=== PATIENT | female | born 1970 | race African-American/Black ===

== ENCOUNTER 2019-12-10 21:50 | Emergency (ER) | payer OTHER ==
[~2019-12-10] VITALS: Ht 154.9 cm; Wt 81.6 kg
[2019-12-10] MEDS ORDERED: ONDANSETRON HCL INJ 2MG/ML 2ML 2 MG/ML VIAL IV STA (21:52)
[2019-12-10] MEDS ORDERED: ASPIRIN 81 MG CHEW TAB PO STA (21:52)
[2019-12-10] MEDS ORDERED: MORPHINE SULFATE INJ 4 MG/ML INJ 1ML IV STA (21:52)
--- NOTE | 2019-12-10 22:02 | Emergency Department Note ---
History of Present Illnes History of Present Illness Chief Complaint: Chest Pain History of Present Illness This is a 49 year old female with self reported h/o of CABG in May 2019 at [facility] and recent h/o of NON-STEMI presents to the ED for evaluation of CP with SOB. . Historian: Patient Arrival Mode: Car Summer Sessions Director Required: No Onset (how long ago): day(s) (1) Radiation: Reports non-radiation Severity: moderate Onset quality: gradual Duration (how long): day(s) (1) Timing of current episode: constant Progression: worsening Chronicity: new Relieving factors: none Exacerbating factors: none Associated symptoms: Reports chest pain, Reports shortness of breath Treatments prior to arrival: none Past Medical/Family History Physician Review I have reviewed the patient's past medical and family history. Any updates have been documented here. Past Medical History Recent Fever: No Clinical Suspicion of Infectio: No New/Unexplained Change in Ment: No Past Medical History: CAD Past Surgical History: CABG, PCI Social History Smoking Cessation: Never Smoker Alcohol Use: None Any Illegal Drug Use: No Review of Systems Review of Systems Constitutional: Reports no symptoms EENTM: Reports no symptoms Cardiovascular: Reports chest pain Respiratory: Reports no symptoms Gastrointestinal: Reports no symptoms Genitourinary: Reports no symptoms Musculoskeletal: Reports no symptoms Integumentary: Reports no symptoms Neurological: Reports no symptoms Psychological: Reports no symptoms Endocrine: Reports no symptoms Hematological/Lymphatic: Reports no symptoms Physical Exam Related Data Allergies: Coded Allergies: gabapentin (Verified Allergy, Intermediate, 12/10/19) tramadol (Verified Allergy, Intermediate, 12/10/19) ibuprofen (Verified Allergy, Unknown, 12/10/19) Vital signs reviewed: Yes Physical Exam CONSTITUTIONAL Constitutional: Present well-developed, Present well-nourished HENT HENT: Present normocephalic, Present atraumatic, Present oropharynx clear/moist, Present nose normal HENT L/R: Present left ext ear normal, Present right ext ear normal EYES Eyes: Reports PERRL, Reports conjunctivae normal NECK Neck: Present ROM normal PULMONARY Pulmonary: Present effort normal, Present breath sounds normal CARDIOVASCULAR Cardiovascular: Present regular rhythm, Present heart sounds normal, Present capillary refill normal, Present normal rate GASTROINTESTINAL Abdominal: Present soft, Present nontender, Present bowel sounds normal GENITOURINARY Genitourinary: Present exam deferred SKIN Skin: Present warm, Present dry MUSCULOSKELETAL Musculoskeletal: Present ROM normal NEUROLOGICAL Neurological: Present alert, Present oriented x 3, Present no gross motor or sensory deficits PSYCHOLOGICAL Psychological: Present mood/affect normal, Present judgement normal Results Laboratory Laboratory Laboratory Tests Test 12/11/19 01:10 12/10/19 22:07 Urine Opiates Screen Positive (NEGATIVE) Urine Methadone Screen Negative (NEGATIVE) Urine Barbiturates Screen Negative (NEGATIVE) Urine Phencyclidine Screen Negative (NEGATIVE) Urine Amphetamines Screen Negative (NEGATIVE) Urine Methamphetamines Screen Negative (NEGATIVE) Urine Benzodiazepines Screen Positive (NEGATIVE) Urine Cocaine Screen Negative (NEGATIVE) Urine Cannabinoids Screen Positive (NEGATIVE) White Blood Count 8.56 x10e3/uL (4.8-10.8) Red Blood Count 3.63 x10e6/uL (3.6-5.1) Hemoglobin 12.5 g/dL (12.0-16.0) Hematocrit 35.7 % (34.2-44.1) Mean Corpuscular Volume 98.3 fL (81-99) Mean Corpuscular Hemoglobin 34.4 pg (28-32) Mean Corpuscular Hemoglobin Concent 35.0 g/dL (31-35) Red Cell Distribution Width 15.7 % (11.7-14.4) Platelet Count 252 x10e3/uL (140-360) Neutrophils (%) (Auto) 46.1 % (38.7-80.0) Lymphocytes (%) (Auto) 44.9 % (18.0-39.1) Monocytes (%) (Auto) 6.3 % (4.4-11.3) Eosinophils (%) (Auto) 2.1 % (0.0-6.0) Basophils (%) (Auto) 0.4 % (0.0-1.0) Neutrophils # (Auto) 4.0 (2.1-6.9) Lymphocytes # (Auto) 3.8 (1.0-3.2) Monocytes # (Auto) 0.5 (0.2-0.8) Eosinophils # (Auto) 0.2 (0.0-0.4) Basophils # (Auto) 0.0 (0.0-0.1) Absolute Immature Granulocyte (auto 0.02 x10e3/uL (0-0.1) Sodium Level 144 mmol/L (136-145) Potassium Level 3.5 mmol/L (3.5-5.1) Chloride Level 109 mmol/L (98-107) Carbon Dioxide Level 20 mmol/L (22-29) Anion Gap 18.5 mmol/L (8-16) Blood Urea Nitrogen 7 mg/dL (7-26) Creatinine 0.82 mg/dL (0.57-1.11) Estimat Glomerular Filtration Rate > 60 ML/MIN (60-) BUN/Creatinine Ratio 9 (6-25) Glucose Level 134 mg/dL (74-118) Calcium Level 8.6 mg/dL (8.4-10.2) Total Bilirubin 0.3 mg/dL (0.2-1.2) Aspartate Amino Transf (AST/SGOT) 22 IU/L (5-34) Alanine Aminotransferase (ALT/SGPT) 7 IU/L (0-55) Alkaline Phosphatase 55 IU/L (40-150) Creatine Kinase 71 IU/L (29-168) Creatine Kinase MB 0.40 ng/mL (0-5.0) Troponin I 0.007 ng/mL (0-0.300) B-Type Natriuretic Peptide < 10.0 pg/mL (0-100) Total Protein 8.5 g/dL (6.5-8.1) Albumin 3.6 g/dL (3.5-5.0) Globulin 4.9 g/dL (2.3-3.5) Albumin/Globulin Ratio 0.7 (0.8-2.0) Lab results reviewed: Yes Imaging Imaging results reviewed: Yes Impressions [place] [id number] Patient Name: EVA LANDON MR #: [id number] : 1970 Age/Sex: 49/F Req #: [id number] Adm Physician: Ordered by: KHRIS RODRIGUEZ DO Report #: [id number] Location: ER Room/Bed: Procedure: [id number] DX/CHEST SINGLE (PORTABLE) Exam Date: 12/10/19 Exam Time: 2355 REPORT STATUS: Signed EXAMINATION: CHEST SINGLE (PORTABLE) INDICATION: Chest pain COMPARISON: None FINDINGS: TUBES and LINES: None. LUNGS: Normal lung volumes. Lungs are clear. Prominent central pulmonary vasculature. PLEURA: No pleural effusion or pneumothorax. HEART AND MEDIASTINUM: Cardiac size is mildly enlarged. BONES AND SOFT TISSUES: No acute osseous lesion. Soft tissues are unremarkable. Sternotomy wires. Degenerative changes UPPER ABDOMEN: No free air under the diaphragm. . IMPRESSION: Mild cardiomegaly and pulmonary vascular congestion. Signed by: Amos Pack DO on 12/11/2019 1:14 AM Dictated By: AMOS PACK DO 3 Transcribed By: LUANA on 12/11/19113 COPY TO: KHRIS RODRIGUEZ DO~ Procedures 12 Lead ECG Interpretation ECG Interpretation #1: ECG: ECG 1 Summer Sessions Director: Interpreted by ED physician Date: Dec 10, 2019 Time: 22:01 Prior ECG tracings: reviewed Rhythm: sinus rhythm Rate: normal BPM: 90 QRS axis: normal ST segments normal: Yes T waves normal: No T waves flattening: V2, V3, V4, V5, V6 Clinical Impression: non-specific ECG ECG Interpretation #2: ECG: ECG 2 Date: Dec 10, 2019 Time: 22:40 Prior ECG tracings: reviewed Rhythm: sinus rhythm Rate: normal BPM: 83 QRS axis: normal ST segments normal: Yes T waves normal: Yes Clinical Impression: normal ECG Assessment & Plan Medical Decision Making MDM 49 yof presents with CP . ACS, PE, costocondritis, Chest wall pain, and pneumothorax considered. labs, imaging and EKG reviewed . Plan to discharge patient to home with f/u with [employer] Assessment & Plan Final Impression: (1) Chest pain Depart Disposition: HOME, SELF-CARE Last Vital Signs Date Time Temp Pulse Resp B/P (MAP) Pulse Ox O2 Delivery O2 Flow Rate FiO2 12/11/19 02:42 78 20 100 12/11/19 02:02 132/90 12/10/19 22:07 98.9 Medications in the ED Aspirin 324 mg ONCE STAT PO ; Start 12/10/19 at 21:52; Stop 12/10/19 at 21:53; Status UNV Morphine Sulfate 4 mg ONCE STAT IV ; Start 12/10/19 at 21:52; Stop 12/10/19 at 21:53; Status UNV Ondansetron HCl 4 mg ONCE STAT IV ; Start 12/10/19 at 21:52; Stop 12/10/19 at 21:53; Status UNV KHRIS RODRIGUEZ DO Dec 10, 2019 22:02
[2019-12-10 22:19] LABS: BASOPHILS % 0.4 % (0.0-1.0); EOSINOPHILS # (AUTO) 0.2 (0.0-0.4); EOSINOPHILS % 2.1 % (0.0-6.0); HEMATOCRIT 35.7 % (34.2-44.1); HEMOGLOBIN 12.5 g/dL (12.0-16.0); LYMPHOCYTES # (AUTO) 3.8 (1.0-3.2); LYMPHOCYTES % 44.9 % (18.0-39.1); MEAN CORPUSCULAR HEMOGLOBIN 34.4 pg (28-32); MEAN CORPUSCULAR VOLUME 98.3 fL (81-99); MONOCYTES # (AUTO) 0.5 (0.2-0.8); MONOCYTES % 6.3 % (4.4-11.3); NEUTROPHILS % 46.1 % (38.7-80.0); PLATELET COUNT 252 x10e3/uL (140-360); RED BLOOD COUNT 3.63 x10e6/uL (3.6-5.1); RED CELL DISTRIBUTION WIDTH 15.7 % (11.7-14.4)
[2019-12-10 22:36] LABS: ALANINE AMINOTRANSFERASE 7 IU/L (0-55); ALBUMIN 3.6 g/dL (3.5-5.0); ALBUMIN/GLOBULIN RATIO 0.7 (0.8-2.0); ALKALINE PHOSPHATASE 55 IU/L (40-150); ANION GAP 18.5 mmol/L (8-16); BLOOD UREA NITROGEN 7 mg/dL (7-26); BUN/CREATININE RATIO 9 (6-25); CALCIUM 8.6 mg/dL (8.4-10.2); CARBON DIOXIDE 20 mmol/L (22-29); CHLORIDE 109 mmol/L (98-107); CREATINE KINASE 71 IU/L (29-168); CREATININE, SERUM 0.82 mg/dL (0.57-1.11); EST GLOMERULAR FILTRATION RATE > 60 ML/MIN (60-); GLUCOSE 134 mg/dL (74-118); POTASSIUM 3.5 mmol/L (3.5-5.1); SODIUM 144 mmol/L (136-145)
--- NOTE | 2019-12-10 22:57 | NUR ---
PT REPORTS DIZZINESS IN LOBBY, ASSISTED TO WC BY RN X2 AND CLIENT SERVICES REPRESENTATIVE AND TAKEN TO ED RM #2, PLACED ON CREDIT REPORTING CLERK; ER MD TO BS FOR EVAL; PT WITH NAD NOTED; REQUESTS PAIN MEDICATION
--- NOTE | 2019-12-11 01:11 | NUR ---
PT W/O ANY SIGNS OF ACUTE DISTRESS, RESP E/U, NON-DIAPHORETIC, NO NEURO DEFICITS NOTED, WILL CONTINUE TO MONITOR AND UPDATE ON POC.
--- NOTE | 2019-12-11 01:17 | Diagnostic Imaging Report ---
EXAMINATION: CHEST SINGLE (PORTABLE) INDICATION: Chest pain COMPARISON: None FINDINGS: TUBES and LINES: None. LUNGS: Normal lung volumes. Lungs are clear. Prominent central pulmonary vasculature. PLEURA: No pleural effusion or pneumothorax. HEART AND MEDIASTINUM: Cardiac size is mildly enlarged. BONES AND SOFT TISSUES: No acute osseous lesion. Soft tissues are unremarkable. Sternotomy wires. Degenerative changes UPPER ABDOMEN: No free air under the diaphragm. . IMPRESSION: Mild cardiomegaly and pulmonary vascular congestion. Signed by: Amos Pack DO on 12/11/2019 1:14 AM
[2019-12-11 01:21] LABS: PHENCYCLIDINE SCREEN,URINE NEGATIVE (NEGATIVE)
[2019-12-11 01:22] LABS: AMPHETAMINES SCREEN,URINE NEGATIVE (NEGATIVE); BENZODIAZEPINES SCREEN,URINE POSITIVE (NEGATIVE)
[2019-12-11 02:42] VITALS: BP 135/94
== END 2019-12-11 02:30 | disposition home or self-care (01) ==
LOC: ER 21:50
DX: R07.9 Chest pain, unspecified (principal); R06.02 Shortness of breath; I51.7 Cardiomegaly; I25.10 Atherosclerotic heart disease of native coronary artery without angina pectoris; Z95.1 Presence of aortocoronary bypass graft
CPT/HCPCS: 36415; 71045; 80053; 80307; 82550; 82553; 83880; 84484; 85025; 93005; 99284; J2270; J2405

== ENCOUNTER 2020-05-05 06:12 | Emergency (ER) | payer OTHER ==
[~2020-05-05] VITALS: Ht 154.9 cm; Wt 81.6 kg
--- OUTSIDE RECORDS SUMMARY | 2020-05-05 06:41 | XMS REPORT | Clinical Summary ---
Author Author [facility] Organization [facility] Address Unknown Phone Unavailable Care Team Providers Care Candy Packer Name Role Phone Bella Hamlin MD PCP [phone] Allergies Comments Active Allergy Reactions Severity Noted Date Blood glucose decrease Albuterol Other 06/16/2019 Chest tightness, itching, wheezing Ibuprofen Breathing 05/23/2018 problems Skin rashes Latex, Natural Rubber 05/23/2018 Medications End Date Status Medication Sig Dispensed Refills Start Date Active ranolazine (RANEXA) 1,000 Take 1 tablet 90 tablet 1 mg extended release by mouth 2 8 tabletIndications: CAD, times daily. multiple vessel Active isosorbide mononitrate Take 1 tablet 90 tablet 3 1 (IMDUR) 60 mg extended by mouth 8 release daily. tabletIndications: CAD, multiple vessel, Essential hypertension Active famotidine (PEPCID) 20 mg Take 1 tablet 60 tablet 1 tabletIndications: by mouth 2 9 Nauseated, Mild acid times daily reflux as needed for Heartburn. Active lisinopril (PRINIVIL, Take 06/26 30 tablet 1 ZESTRIL) 40 mg tablet by 9 tabletIndications: mouth daily. Essential hypertension Active clopidogrel (PLAVIX) 75 Take 1 tablet 90 tablet 1 mg tabletIndications: by mouth 9 CAD, multiple vessel daily. Active metoprolol tartrate Take 1 tablet 60 tablet 0 03/26 (LOPRESSOR) 25 mg by mouth 2 9 tabletIndications: CAD, times daily. multiple vessel Active nitroGLYCERIN (NITRO-DUR) Apply 1 Patch 30 Patch 0 0.2 mg/hr to skin as 9 patchIndications: CAD, directed multiple vessel daily. Leave patch for 12 to 14 hours. Then no patch on for the rest of the day Active nitroGLYCERIN (NITROSTAT) Dissolve 1 60 tablet 0 0.4 mg sublingual tablet under 9 tabletIndications: CAD, the tongue multiple vessel every 5 minutes as needed for chest pain for a maximum of 3 doses. If chest pain persists, visit ER. Active atorvastatin (LIPITOR) 80 Take 1 tablet 30 tablet 0 mg tabletIndications: by mouth at 9 CAD, multiple vessel bedtime nightly. Active tiZANidine (ZANAFLEX) 4 Take 1 tablet 60 tablet 1 mg tabletIndications: by mouth 9 Muscle spasm of right every 12 shoulder hours as needed for Muscle Spasms. Active hydrOXYzine (ATARAX) 25 Take 1 tablet 90 tablet 1 mg tabletIndications: by mouth 9 PTSD (post-traumatic every 8 hours stress disorder) as needed for Anxiety. Active gabapentin (NEURONTIN) Take 1 270 capsule 0 100 mg capsule by 9 capsuleIndications: S/P mouth 3 times CABG (coronary artery daily. bypass graft) Active acetaminophen-codeine Take 1 tablet 75 tablet 0 (TYLENOL/CODEINE #3) by mouth 9 300-30 mg per every 8 hours tabletIndications: S/P as needed for CABG (coronary artery Pain. bypass graft) Active hydroCHLOROthiazide Take 1 tablet 90 tablet 1 (HYDRODIURIL) 25 mg by mouth 0 tabletIndications: daily. Essential hypertension 07/01/2019 Discontinued hydroCHLOROthiazide Take 1 tablet 90 tablet 1 09/23 (HYDRODIURIL) 25 mg by mouth 9 tabletIndications: daily. Essential hypertension 05/14/2019 Discontinued (Reorder) atorvastatin (LIPITOR) 80 Take 1 tablet 30 tablet 0 mg tabletIndications: by mouth at 9 CAD, multiple vessel, bedtime Medication refill nightly. 05/14/2019 Discontinued (Reorder) hydrOXYzine (ATARAX) 25 Take 1 tablet 90 tablet 0 mg tabletIndications: by mouth 3 9 Medication refill times daily as needed for Anxiety. 05/14/2019 Discontinued (Reorder) nitroGLYCERIN (NITRO-DUR) Apply 1 Patch 30 Patch 0 0.2 mg/hr to skin as 9 patchIndications: directed Medication refill daily. Leave patch for 12 to 14 hours. Then no patch on for the rest of the day 05/14/2019 Discontinued (Reorder) nitroGLYCERIN (NITROSTAT) Dissolve 1 60 tablet 0 0.4 mg sublingual tablet under 9 tabletIndications: the tongue Medication refill every 5 minutes as needed for chest pain for a maximum of 3 doses. If chest pain persists, visit ER. 05/11/2019 clindamycin (CLEOCIN HCL) Take 1 30 capsule 0 300 mg capsule by 9 capsuleIndications: mouth 3 times Dental infection daily for 10 days. 05/14/2019 Discontinued (Reorder) acetaminophen-codeine Take 1 tablet 20 tablet 0 (TYLENOL/CODEINE #3) by mouth 9 300-30 mg per every 4 hours tabletIndications: Dental as needed for infection Pain. 06/16/2019 Discontinued (Duplicate Orde r) acetaminophen-codeine Take 1 tablet 15 tablet 0 (TYLENOL/CODEINE #3) by mouth 9 300-30 mg per every 4 hours tabletIndications: Caries as needed for Pain. 05/24/2019 amoxicillin (AMOXIL) 500 Take 1 30 capsule 0 1 mg capsuleIndications: capsule by 9 Caries mouth 3 times daily for 10 days. Active Problems Problem Noted Date Vitamin D deficiency 07/29/2019 Positive antinuclear antibody 07/29/2019 Overview: 1:80 speckled; other lupus panel neg, a nca normal Vertebral artery occlusion, right 08/27/2018 Sciatica of right side 05/23/2018 Homeless 06/08/2015 Marijuana use in remission 05/26/2015 CAD, multiple vessel 05/26/2015 GERD (gastroesophageal reflux disease) 10/01/2011 HLD (hyperlipidemia) 10/01/2011 SOB (shortness of breath) 09/30/2011 HTN (hypertension) 09/30/2011 Sickle cell trait 09/30/2011 Obesity 09/30/2011 DVT (deep vein thrombosis) in 09/30/2011 S/P hysterectomy 09/30/2011 Depression Anxiety Dizziness Encounters Care Team Description Date Type Specialty Bella Hamlin MD Medications 07/01/2019 Refill Family Practice Shyam Almanza MD YOCASTA positive (Primary Dx); CAD, multiple vessel; S/P CABG (coronary artery bypass graft); Hypertension goal BP (blood pressure) < 140/80 06/16/2019 Office Visit Family Practice Shyam Almanza MD YOCASTA positive 05/14/2019 Lab Appointment Lab Bella Hamlin MD Willis, Samuel E, MD YOCASTA positive (Primary Dx); Dietary counseling for Above / Below Normal BMI; CAD, multiple vessel; PTSD (post-traumatic stress disorder); Muscle spasm of right shoulder; Health maintenance examination 05/14/2019 Office Visit Family Practice Britton Bellamy DDS Caries (Primary Dx) 05/14/2019 Office Visit Dentistry after 05/05/2019 Immunizations Name Administration Dates Next Due Influenza <Unspecified> 03/25/2018 Influenza Vaccine 05/25/2016 (Deferred: Shanda nt already had this immunization) Influenza Vaccine, 06/04/2018 (Deferred: Shanda nt Refused) Seasonal, Injectable Influenza, Injectable, 04/18/2018 Quadrivalent, Preservative Free Influenza, 05/01/2019 Vaccine<FLUCELVAX>(Multi- Dose) PPD 05/03/2015 PPV 23 (Pneumococcal 05/14/2019 Polysaccharide 23 Valent) Pneumococcal 13-valent 05/25/2016 (Deferred: Patie nt Refused) conj 0.5 mL injection Tdap (Tetanus Toxoid, 05/14/2019, 05/23/2018 (Def erred: Other - PATIENT Reduced Diphtheria Toxoid WILL RECIEVE AT NURSE VISI T) And Acellular Pertussis, Absorbed) Family History Medical History Relation Name Comments Arthritis Mother Blood Disease Mother hep. c Diabetes Mother insulin dependent Hypertension Mother Lipids Mother Stroke Mother unsure of what type Relation Name Status Comments Father Alive Mother Alive Social History Date Tobacco Use Types Packs/Day Years Used Never Smoker Smokeless Tobacco: Never Used Tobacco Cessation: Counseling Given: No Drinks/Week oz/Week Comments Alcohol Use Social, 3x/month Yes Food Insecurity Answer Date Recorded Within the past 12 months, you worried that your Never triny e 05/23/2018 food would run out before you got money to buy more. Within the past 12 months, the food you bought Never true 05/23/2018 just didn't last and you didn't have mo handy to get more. Sex Assigned at Date Recorded Not on file Industry Job Start Date Occupation Not on file Not on file Not on file Travel End Travel History Travel Start No recent travel history available. Last Filed Vital Signs Reading Time Taken Comments Vital Sign 139/94 06/16/2019 2:07 PM [facility] Blood Pressure 92 06/16/2019 2:07 PM [facility] Pulse 36.5 C (97.7 F) 06/16/2019 2:07 PM [facility] Temperature 18 06/16/2019 2:07 PM [facility] Respiratory Rate - - Oxygen Saturation - - Inhaled Oxygen Concentration 86.2 kg (190 lb) 06/16/2019 2:07 PM [facility] Weight 156.2 cm (5' 1.5") 06/16/2019 2:07 PM [facility] Height 35.32 06/16/2019 2:07 PM [facility] Body Mass Index Plan of Treatment Health Maintenance Due Date Last Done Comments Breast Cancer Scrn 2009 (Yearly) Colorectal Cancer Scrn 11/04/2019 Annual (FIT/FOBT) Age 50 to 75 IMM Influenza Seasonal 03/25/2020 05/01/2019, Mar to August (>/= 19 yrs) 04/18/2018, 03/25/2018 CORONARY ARTERY DISEASE 04/14/2020 04/14/2019, AGE 18 AND UP 07/11/2018, 05/24/2016, Additional history exists Goals Goal Patient Associated Recent Progress Patient-Stat Aut hor Goal Type Problems ed? Reduce pain Lifestyle Not on track No Viveros, (10/25/2018 12:13 PM Graham CDT) Robles Eat Healthy Lifestyle Not on track No Jose, (10/25/2018 12:13 PM Mehnaz Saez MD CDT) Exercise Regularly Self Not on track No Shirlene i, management (10/25/2018 12:13 PM Mehnaz Saez MD CDT) Procedures Comments Procedure Name Priority Date/Time Associated Diag nosis URINALYSIS Routine 05/14/2019 YOCASTA positive 1:38 PM [facility] URINALYSIS Routine 05/14/2019 YOCASTA positive 1:38 PM [facility] CBC Routine 05/14/2019 YOCASTA positive 12:50 PM [facility] HEPATITIS PANEL Routine 05/14/2019 YOCASTA positive 12:50 PM [facility] C-REACTIVE PROTEIN HIGH Routine 05/14/2019 YOCASTA po sitive SENSITIVITY (CARDIAC) 12:50 PM [facility] CBC/DIFF Routine 05/14/2019 YOCASTA positive 12:50 PM [facility] BASIC METABOLIC PANEL Routine 05/14/2019 YOCASTA posi tive 12:50 PM [facility] LIVER PROFILE Routine 05/14/2019 YOCASTA positive 12:50 PM [facility] CREATINE KINASE (CK) Routine 05/14/2019 YOCASTA posit dyan 12:50 PM [facility] ANTI DSDNA BY CRITHIDIA Routine 05/14/2019 YOCASTA po sitive 12:50 PM [facility] JOSE L VIPER VENOM TIME; Routine 05/14/2019 YOCASTA positive DILUTED, LUPUS 12:50 PM [facility] ANTICARDIO G,M,A Routine 05/14/2019 YOCASTA positive 12:50 PM [facility] SJOGREN'S AB Routine 05/14/2019 YOCASTA positive 12:50 PM [facility] after 05/05/2019 Results * Urinalysis (05/14/2019 1:38 PM [facility]) Color Straw Colorless, Straw, [facility] Yellow [facility] Clarity Clear Clear [facility] Spec [place], 1.014 1.001 - 1.035 [facility] Ur [facility] pH, Ur 7.0 5.0 - 8.0 [facility] Protein, Ur Negative Negative mg/dL [facility] Glucose, Ur Negative Negative mg/dL [facility] Ketone, Ur Negative Negative mg/dL [facility] Bilirubin, Ur Negative Negative mg/dL [facility] Nitrite, Ur Negative Negative [facility] Leukocyte Negative Negative mg/dL [facility] Blood, Ur Negative Negative mg/dL [facility] Urobilinogen, <1.0 <1.0 EU/dL [facility] Ur [facility] Specimen Urine Performing Organization Address City/State/Zipcode Ph one Number [facility] [address] [place] [address] * CBC/Diff (05/14/2019 12:50 PM [facility]) WBC 5.3 4.5 - 11.0 K/uL [facility] RBC 3.36 (L) 4.20 - 5.40 M/uL [facility] Hemoglobin 11.6 (L) 12.0 - 16.0 g/dL [facility] Hematocrit 35.2 (L) 37.0 - 47.0 % [facility] MCV 104.8 (H) 82.0 - 92.0 fL [facility] MCH 34.5 (H) 27.0 - 32.0 pg [facility] MCHC 33.0 32.0 - 36.0 g/dL [facility] RDW 48.7 (H) 36.4 - 46.3 fL [facility] Platelet 282 150 - 400 K/uL [facility] Mean Platelet 10.1 9.4 - 12.4 fL [facility] Volume [facility] Percent NRBC 0.0 % [facility] Neutrophil 40.6 34.0 - 70.0 % [facility] Lymphs 48.9 20.0 - 50.0 % [facility] Monocytes 7.6 5.0 - 12.0 % [facility] Eos 2.5 0.7 - 5.0 % [facility] Basos 0.2 0.1 - 1.2 % [facility] Immature 0.2 0.0 - 0.5 % [facility] Granulocytes LABOR[facility] Neutrophils 2.14 1.56 - 6.13 K/uL [facility] (Absolute) [facility] Lymphs 2.57 1.18 - 3.74 K/uL [facility] (Absolute) [facility] Monocytes(Absol 0.40 (H) 0.24 - 0.36 K/uL [facility] kip) LABORATORY Eos (Absolute) 0.13 0.04 - 0.36 K/uL [facility] Baso (Absolute) 0.01 0.01 - 0.08 K/uL [facility] Immature Grans 0.01 0.00 - 0.03 K/uL [facility] (Abs) [facility] Absolute NRBC 0.00 K/uL [facility] Specimen Blood Performing Organization Address City/State/Zipcode Ph one Number [facility] [address] [place] [address] [phone] * Lupus Anticoagulant Panel (05/14/2019 12:50 PM [facility]) Pathologist [facility] DRVV Screen 0.90 0.00 - 1.20 Ratio [facility] Ratio [facility] PTT-LA Screen 33.5 26.0 - 40.0 Sec [facility] LA There is no evidence of lupus [facility] B Interpretation anticoagulant by two screening LABORA TORY tests (DRVV and PTT-LA). Unless there is a clinical suspicion, no further testing for LA is indicated. Specimen Blood Performing Organization Address [facility] [place] [place] Ph one Number [facility] [address] [place] [address] [phone] * Sjgren's Antibodies (Anti-SS-A/Anti-SS-B) (05/14/2019 12:50 PM [facility]) [facility] Sjogren's <0.2 0.0 - 0.9 AI BT [facility] Anti-SS-A Sjogren's <0.2 0.0 - 0.9 AI BT [facility] Anti-SS-B Specimen Blood Narrative Performed At Performed at: [facility] [address] [place] [address] 9674 Intelligent Systems Engineer: Ryan Thurman MD, Phone: [phone] Performing Organization Address [facility]/Count Includes [facility] one Number [facility] [address] [place] [address] * Anticardiolipin Abs, IgA,IgG,IgM, Quantitiatve (05/14/2019 12:50 PM [facility]) [facility] Anticardiolipin 9 0 - 14 GPL U/mL BT [facility] Ab,IgG,Qn Comment: Negative: <15 Indeterminate: 15 - 20 Low-Med Positive: >20 - 80 High Positive: >80 Anticardiolipin <9 0 - 12 MPL U/mL BT [facility] Ab,IgM,Qn Comment: Negative: <13 Indeterminate: 13 - 20 Low-Med Positive: >20 - 80 High Positive: >80 Anticardiolipin <9 0 - 11 APL U/mL BT [facility] Ab,IgA,Qn Comment: Negative: <12 Indeterminate: 12 - 20 Low-Med Positive: >20 - 80 High Positive: >80 Specimen Blood Narrative Performed At [facility]formed at: [facility] [address] [place] [address] 9317 Intelligent Systems Engineer: Rox Hernandez MD, Phone : [phone] Performing Organization Address [facility] one Number BT [facility] [address] [place] [address] * CRP (High Sensitivity) (05/14/2019 12:50 PM [facility]) [facility] CRP, High 7.1 (H) <1.0 mg/L [facility] Sensitivity [facility] (Cardiac) Specimen Blood Performing Organization Address [facility] one Number [facility] [address] [place] [address] [phone] * Liver Profile (05/14/2019 12:50 PM [facility]) [facility] Total Protein 7.6 6.0 - 8.3 g/dL [facility] Bilirubin, 0.3 0.2 - 1.2 mg/dL [facility] Total [facility] Alkaline 45 34 - 104 U/L [facility] Phosphatase [facility] AST 15 13 - 39 U/L [facility] Direct 0.1 0.0 - 0.2 mg/dL [facility] Bilirubin [facility] ALT 12 7 - 52 U/L [facility] Albumin 4.0 3.7 - 5.3 g/dL [facility] Specimen Blood Performing Organization Address [facility] one Number [facility] [address] [place] [address] * Hepatitis Panel (05/14/2019 12:50 PM [facility]) [facility] Hepatitis C Negative Negative [facility] Virus (HCV) LABORATORY Antibody Hep B Surface Negative Negative [facility] Ag [facility] Hep A Vir Ab Negative Negative [facility] IgM [facility] Hep B Core Ab Negative Negative [facility] IgM [facility] Specimen Blood Performing Organization Address [facility]/Count Includes [facility] one Number [facility] [address] [place] [address] * Anti-dsDNA by Crithidia (05/14/2019 12:50 PM [facility]) [facility] ANTI-DNA (DS) Negative Negative [facility] AB QN LABOR[facility]ORY Specimen Blood Performing Organization Address [facility] one Number [facility] [address] [place] [address] [phone] * CK [Creatinine Kinase] (05/14/2019 12:50 PM [facility]) CK 54 30 - 223 U/L [facility] Specimen Blood Performing Organization Address [facility] [place] [place] Ph one Number [facility] [address] [place] [address] * Basic Metabolic Panel (05/14/2019 12:50 PM [facility]) Sodium 145 136 - 145 mmol/L [facility] Potassium 4.5 3.5 - 5.1 mmol/L [facility] Chloride 105 98 - 107 mmol/L [facility] CO2 29 21 - 31 mmol/L [facility] Urea Nitrogen 18.0 7.0 - 25.0 mg/dL [facility] Creatinine 0.8 0.6 - 1.2 mg/dL [facility] Glucose 84 70 - 110 mg/dL [facility] Calcium 9.3 8.6 - 10.3 mg/dL [facility] eGFR If Africn >90 >=90 mL/min/1.73 m2 [facility] Am [facility] Anion Gap 11 5 - 16 mmol/L [facility] Specimen Blood Performing Organization Address [facility] [place] [place] Ph one Number [facility] [address] [place] [address] [phone] after 05/05/2019 Insurance Type Payer Benefit Subscriber ID Effective Phone Address Plan / Dates Group [place] [id number] SSI xxxxxxxxx 2018- [phone] RECIPIENT Present [id number] [place] [address] Advance Directives Date Inactivated Comments Code Status Date Activated 08/27/2018 5:16 PM Full Code 08/27/2018 3:52 AM 05/25/2016 5:23 PM Full Code 05/24/2016 10:25 AM 05/18/2015 7:52 PM Full Code 05/17/2015 4:08 PM 03/13/2015 8:00 PM Full Code 03/11/2015 5:58 PM 03/11/2015 5:58 PM Full Code 03/07/2015 12:15 PM
--- OUTSIDE RECORDS SUMMARY | 2020-05-05 06:41 | XMS REPORT | Clinical Summary ---
Author Author [facility] Address Unknown Phone Unavailable Care Team Providers Care Master Data Analyst Name Role Phone PCP Unavailable Allergies Not on File Medications Not on file Active Problems Not on file Social History Date Tobacco Use Types Packs/Day Years Used Never Assessed Sex Assigned at Date Recorded Not on file Last Filed Vital Signs Not on file Plan of Treatment Not on file Results Not on fileafter 05/05/2019
--- OUTSIDE RECORDS SUMMARY | 2020-05-05 06:41 | XMS REPORT | Clinical Summary ---
Author Author [facility] Organization [facility] Address Unknown Phone Unavailable Care Team Providers Care Open Claims Representative Name Role Phone Fina Raymundo MD PCP Allergies Comments Active Allergy Reactions Severity Noted Date Seizures Albuterol Other (See 10/09/2019 Comments) Ibuprofen Swelling 02/05/2018 Vomiting Ibuprofen Itching 10/12/2016 Medications End Date Status Medication Sig Dispensed Refills Start Date Active cetirizine (ZyrTEC) 10 MG Take 10 mg by 0 tablet mouth daily. Active fluticasone (FLONASE) 50 2 sprays by 0 mcg/actuation nasal spray Each Nare route daily. Active clopidogrel (PLAVIX) 75 Take 75 mg by 0 mg tablet mouth daily. Active metoprolol tartrate Take 25 mg by 0 (LOPRESSOR) 25 mg tablet mouth 2 (two) times a day. Active ranolazine (RANEXA) 500 Take 500 mg 0 MG 12 hr ER tablet by mouth 2 (two) times a day. Active multivitamin with Take 1 tablet 0 minerals tablet by mouth daily. Active lisinopril-hydrochlorothi Take 1 tablet 0 azide by mouth (PRINZIDE,ZESTORETIC) daily. 20-12.5 mg per tablet Active pravastatin (PRAVACHOL) Take 80 mg by 0 40 MG tablet mouth daily. Active aspirin 325 MG tablet Take 325 mg 0 by mouth daily. Active nitroglycerin (NITROSTAT) Place 0.4 mg 0 0.4 MG SL tablet under the tongue every 5 (five) minutes as needed for chest pain. Active nitroglycerin (NITRODUR) Place 1 patch 0 0.2 mg/hr on the skin daily. Active nitroglycerin (NITRO-BID) Place 1 inch 0 2 % ointment on the skin daily. Active clopidogrel (PLAVIX) 75 Take 75 mg by 0 mg tablet mouth daily. Active isosorbide mononitrate Take 30 mg by 0 (IMDUR) 30 MG 24 hr mouth 2 (two) tablet times a day. Active metoprolol tartrate Take 25 mg by 0 (LOPRESSOR) 25 mg tablet mouth 2 (two) times a day. Active ranolazine (RANEXA) 500 Take 1,000 mg 0 MG 12 hr ER tablet by mouth 2 (two) times a day. Active aspirin 325 MG tablet Take 325 mg 0 by mouth daily. Active nitroglycerin (NITRODUR) Place 1 patch 0 0.2 mg/hr on the skin daily. Active pravastatin (PRAVACHOL) Take 80 mg by 0 40 MG tablet mouth daily. Active lisinopril Take 20 mg by 0 (PRINIVIL,ZESTRIL) 20 mg mouth daily. tablet Active hydroCHLOROthiazide Take 12.5 mg 0 (MICROZIDE) 12.5 mg by mouth capsule daily. 11/10/2019 isosorbide mononitrate Take 1 tablet 30 tablet 0 0 (IMDUR) 30 MG 24 hr (30 mg total) 0 tablet by mouth daily for 30 days. 11/09/2019 atorvastatin (LIPITOR) 10 Take 1 tablet 30 tablet 0 MG tablet (10 mg total) 0 by mouth daily for 30 days. Active Problems Problem Noted Date Weakness generalized 10/10/2019 NSTEMI (non-ST elevated myocardial infarction) 10/08 Chest pain 02/05/2018 Chest pain 10/12/2016 Encounters Care Team Description Date Type Specialty Pritesh Araiza DO Teqwimuah, Remy, DO NSTEMI (non-ST elevated myocardial infar ction) (HCC) (Primary Dx) 10/09/2019 [facility] Internal Mi dicine - Encounter 10/10/2019 after 05/05/2019 Surgical History Surgery Date Site/Laterality Comments CARDIAC CATHERIZATION STENT x3 CARDIAC SURGERY STENT HYSTERECTOMY TONSILLECTOMY SECTION Medical History Medical History Date Comments Palpitations Pulmonary embolism (HCC) Angina pectoris (HCC) Myocardial infarction (HCC) TIA (transient ischemic attack) Pulmonary edema Sickle cell anemia (HCC) Hypertension Coronary artery disease Asthma Seizures (HCC) Stroke (HCC) Social History Date Tobacco Use Types Packs/Day Years Used Never Smoker Smokeless Tobacco: Never Used Drinks/Week oz/Week Comments Alcohol Use No Sex Assigned at Date Recorded Not on file Last Filed Vital Signs Reading Time Taken Comments Vital Sign 138/82 10/10/2019 3:22 PM CDT Blood Pressure 76 10/10/2019 3:22 PM CDT Pulse 36.6 C (97.9 F) 10/10/2019 3:22 PM CDT Temperature 18 10/10/2019 3:22 PM CDT Respiratory Rate 96% 10/10/2019 3:22 PM CDT Oxygen Saturation - - Inhaled Oxygen Concentration 86.2 kg (190 lb) 10/09/2019 1:46 PM CDT Weight 154.9 cm (5' 1") 10/09/2019 1:46 PM CDT Height 35.9 10/09/2019 1:46 PM CDT Body Mass Index Plan of Treatment Health Maintenance Due Date Last Done Comments CERVICAL CANCER SCREENING 1990 BREAST CANCER SCREENING 11/04/2019 COLONOSCOPY SCREENING 11/04/2019 SHINGLES VACCINES (#1) 11/04/2019 INFLUENZA VACCINE 01/24/2020 Procedures Comments Procedure Name Priority Date/Time Associated Diag nosis ESTIMATED GFR Routine 10/10/2019 5:53 AM CDT COMPREHENSIVE METABOLIC Routine 10/10/2019 PANEL 5:53 AM CDT HC COMPLETE BLD COUNT Routine 10/10/2019 W/AUTO DIFF 5:53 AM CDT ECG 12-LEAD Routine 10/10/2019 5:24 AM CDT TROPONIN Timed 10/09/2019 8:50 PM CDT COVID-19 QUALITATIVE PCR STAT 10/09/2019 4:45 PM CDT TROPONIN STAT 10/09/2019 4:44 PM CDT TTE COMPLETE, WO Routine 10/09/2019 CONTRAST, W DOPPLER 4:40 PM CDT ([id number]) CT ANGIOGRAM PE CHEST STAT 10/09/2019 4:00 PM CDT COMPREHENSIVE METABOLIC Routine 10/09/2019 PANEL 2:48 PM CDT ESTIMATED GFR Routine 10/09/2019 2:48 PM CDT ECG ED PRELIMINARY Routine 10/09/2019 INTERPRETATION 2:16 PM CDT PA CRITICAL CARE, E/M Routine 10/09/2019 30-74 MINUTES 2:16 PM CDT XR CHEST 1 VW PORTABLE STAT 10/09/2019 2:12 PM CDT TROPONIN STAT 10/09/2019 1:56 PM CDT B NATRIURETIC PEPTIDE STAT 10/09/2019 1:56 PM CDT HC COMPLETE BLD COUNT STAT 10/09/2019 W/AUTO DIFF 1:56 PM CDT ECG 12-LEAD Routine 10/09/2019 1:43 PM CDT after 05/05/2019 Results * Estimated GFR (10/10/2019 5:53 AM CDT) Only the most recent of 2 results within the time period is included. Pathologist [facility] Estimated GFR >=90 mL/min/1.73 m2 [facility] Comment: [facility] Interpretation G1 >=90 Normal or high G2 60-89 Mildly decreased G3a 45-59 Mildly to moderately decreased G3b 30-44 Moderately to severely decreased G4 15-29 Severely decreased G5 <15 Kidney failure The eGFR was calculated using the Chronic Kidney Disease Epidemiology Collaboration (CKD-EPI) equation. Interpretation is based on recommendations of the National Kidney Foundation-Kidney Disease Outcomes Quality Initiative (NKF-KDOQI) published in 2014. Specimen Performing Organization Address City/State/ZIP Code [place] [address] [place], [place] [address] PATHOLOGY AND GENOMIC MEDICINE [facility] [address] [place] [address] [facility] * CBC with platelet and differential (10/10/2019 5:53 AM CDT) Only the most recent of 2 results within the time period is included. Pathologist [facility] WBC 5.67 4.50 - 11.00 k/uL [facility] RBC 3.48 (L) 4.20 - 5.50 m/uL [facility] HGB 11.4 (L) 12.0 - 16.0 g/dL [facility] HCT 34.3 (L) 37.0 - 47.0 % [facility] MCV 98.6 82.0 - 100.0 fL [facility] MCH 32.8 27.0 - 34.0 pg [facility] MCHC 33.2 31.0 - 37.0 g/dL [facility] RDW - SD 57.1 (H) 37.0 - 55.0 fL [facility] MPV 9.9 8.8 - 13.2 fL [facility] Platelet count 278 150 - 400 k/uL [facility] Nucleated RBC 0.00 /100 WBC [facility] Neutrophils 30.5 (L) 39.0 - 69.0 % [facility] Lymphocytes 59.6 (H) 25.0 - 45.0 % [facility] Monocytes 6.5 0.0 - 10.0 % [facility] Eosinophils 3.0 0.0 - 5.0 % [facility] Basophils 0.2 0.0 - 1.0 % [facility] Specimen Blood Performing Organization Address City/State/ZIP Code [place] [address] [place], [place] [address] PATHOLOGY AND GENOMIC MEDICINE [facility] [address] [address] [place] [id number] [facility] * Comprehensive metabolic panel (10/10/2019 5:53 AM CDT) Only the most recent of 2 results within the time period is included. Sodium 143 135 - 148 mEq/L [facility] Potassium 3.4 (L) 3.5 - 5.0 mEq/L [facility] Chloride 109 98 - 112 mEq/L [facility] CO2 26 24 - 31 mEq/L [facility] Anion gap 8@ANIO 7 - 15 mEq/L [facility] BUN 8 6 - 20 mg/dL [facility] Creatinine 0.70 0.50 - 0.90 mg/dL [facility] Glucose 95 65 - 99 mg/dL [facility] Calcium 9.0 8.3 - 10.2 mg/dL [facility] Protein 7.4 6.3 - 8.3 g/dL [facility] Comment: [facility] 4.6-7.0 g/dL 1 week 4.4-7.6 g/dL 7 months-1year 5.1-7.3 g/dL 1-2 years 5.6-7.5 g/dL >3 years 6.0-8.0 g/dL 18-150 6.3-8.3 g/dL Albumin 3.6 3.5 - 5.0 g/dL [facility] A/G ratio 0.9 0.7 - 3.8 [facility] Alkaline 59 35 - 104 U/L [facility] phosphatase [facility] AST 14 10 - 35 U/L [facility] ALT 7 5 - 50 U/L [facility] Total bilirubin 0.4 0.0 - 1.2 mg/dL [facility] Specimen Blood Performing Organization Address City/[facility] Code P [place] [address] [place] [address] PATHOLOGY AND GENOMIC MEDICINE [facility] [address] [place] [address] [facility] * ECG 12 lead (10/10/2019 5:24 AM CDT) Only the most recent of 2 results within the time period is included. Ventricular 69 [facility] rate Atrial rate 69 [facility] PA interval 218 [facility] QRSD interval 76 [facility] QT interval 434 [facility] QTC interval 465 [facility] P axis 1 70 [facility] QRS axis 1 9 [facility] T wave axis 43 [facility] EKG impression Sinus rhythm with 1st degree [facility] AV block-Otherwise normal ECG-In automated comparison with ECG of 09-OCT-2019 13:43,-No significant change was found- Specimen Narrative Performed At This result has an attachment that is n ot available. Performing Organization Address City/[facility]/ZIP Code P rigoberto Number [facility] [address] [place] [address] * Troponin (10/09/2019 8:50 PM CDT) Only the most recent of 3 results within the time period is included. Pathologist [facility] Troponin 0.248 (H) 0.000 - 0.040 ng/mL [place] Comment: [facility] CLEAR In patients suspected of [facility] having a myocardial infarction, along with all other appropriate clinical measures and actions including ECG and other diagnostics as appropriate, measure Ultra TnI at 0 hrs and at 3 hrs. Myocardial infarction VERY LIKELY The 0 hr TnI level is > 0.10 ng/mL Myocardial infarction LIKELY The 0 hr TnI level is > 0.04 ng/mL and 3 hr level is increased or decreased by at least 0.020 ng/mL Myocardial infarction VERY UNLIKELY Both the 0 hr and 3 hr TnI levels <= 0.04 ng/mL(within normal limits) OR 0 hr is > 0.04 ng/mL and 3 hr is increased OR decreased by less than 0.020 ng/mL Specimen Blood Performing Organization Address City/State/ZIP Code [place] [address] [place], [place] [address] PATHOLOGY AND GENOMIC MEDICINE [facility]IL[facility] S[facility]UGHTER [address] [place] [address] [facility] * COVID-19 qualitative PCR (10/09/2019 4:45 PM CDT) Pathologist [facility] Interpretation Negative results do not [place] preclude 2019-nCoV infection [facility] and should not be used as the HOSPITAL sole basis for treatment or other patient management decisions. Negative results must be combined with clinical observations, patient history, and epidemiological information. COVID-19 Not-Detected Not-Detected [facility] qualitative PCR [facility] result HOSPITAL COVID-19 See link below for PDF Lab [facility] qualitative PCR ReportComment: Case Number: [facility] [id number] HOSPITAL Specimen Performing Organization Address City/State/ZIP Code P rigoberto Number [facility] DEPARTMENT OF [address] [place] [address] PATHOLOGY AND GENOMIC MEDICINE [facility] [address] [place] [address] [facility] * Transthoracic Echocardiogram Complete, (w Contrast, Strain and 3D if needed) (10/09/2019 4:40 PM CDT) Velocity Ratio 0.78 m/s [facility] (V1/V2) IVS,d 0.84 cm [facility] Ao root annulus 2.77 cm [facility] EF 59.38 % [facility] LVPWD,d 1.11 cm [facility] AoV Mean PG 2.20 mmHg [facility] AV LVOT peak 2.58 mmHg [facility] gradient MV valve area p 6.85 cm2 [facility] 1/2 method E/A ratio 2.15 [facility] E wave 129.16 msec [facility] decelartion time LVOT Diam,S 1.86 cm [facility] LVOT area 2.72 cm2 [facility] LVOT Vmax 0.80 m/s [facility] LVOT VTI 0.18 m [facility] AoV Peak PG 4.20 mmHg [facility] MV Peak E Srinivas 0.73 m/s [facility] MV stenosis 32.14 ms [facility] pressure 1/2 time MV Peak A Srinivas 0.34 m/s [facility] LV Vol,s A2C 29.12 mL [facility] LV Vol,d A2C 84.08 mL [facility] AoV Area, Vmax 2.12 cm2 [facility] AoV Area, VTI 2.51 cm2 [facility] AoV Vmax 1.03 m/s [facility] LV,d 3.51 cm [facility] LV,s 2.43 cm [facility] LV Vol,d A4C 70.25 ml [facility] LV Vol,s A4C 30.39 ml [facility] RVSP (TR) 27.58 mmHg [facility] TR Vpeak 2.41 mm/s [facility] MV E A ratio 2.16 [facility] RA pressure 5.00 mmHg [facility] TR pk grad 23 mmHg [facility] LA Vol 4C 45.00 ml [facility] RVSP 27.58 mmHg [facility] LV SYS VOL 20.80 ml [facility] LV MILIAN VOL 51.20 ml [facility] LA diam s 2.90 cm [facility] LA Vol MOD A4C 45.07 ml [facility] LV SV Teich 2D 30.39 ml [facility] LVOT SI 26.40 ml/m2 [facility] AoV Cusp sep 1.68 [facility] Aortic Root 2.80 cm [facility] AoV Vmn 0.69 [facility] IVS s 2D 1.24 [facility] LA Ao Ratio 1.04 [facility] Mmode D E excurs 1.20 [facility] E f slope 0.06 [facility] E prime lat 0.10 [facility] E jose sept 0.07 [facility] PV acc T slope 6.80 [facility] PV AT 62.28 msec [facility] FLORES BP EF 59.00 % [facility] LA VOL 2C 41.00 ml [facility] AoV VTI 0.19 m [facility] LV EF,A2C 65.37 % [facility] LV EF,A4C 56.73 % [facility] LV EF,BP 59.52 % [facility] [place],d A2C 7.81 cm [facility] Kristian [place],d A4C 7.69 cm [facility] Kristian [place],s A2C 6.68 cm [facility] [place],s A4C 5.89 cm [facility] LV SV,A2C 54.96 % [facility] LV SV,A4C 39.85 % [facility] LV Vol,d BP 77.34 ml [facility] LV Vol,s BP 31.31 nl [facility] LVOT Vmn 0.57 [facility] Pt Size 154.94 [facility] Pt Wt 86.18 [facility] LVOT mean grad 1.45 mmHg [facility] LVPW s PLAX 1.42 cm [facility] MV Decel slope 5.68 m/s2 [facility] Specimen Narrative Performed At [facility] Left ventricular systolic function i s normal. Left Ventricular ejection fraction i s 55 - 60%. There is borderline left ventricular concentric hypertrophy. Unable to assess diastolic filling. The doppler, spectral and color flow examination are unremarkable and show no significant flow abnormalities of the aortic, mitral, tricuspid or pulmonic valves Performing Organization Address City/State/ZIP Code P rigoberto Number [facility] [address] [place] [address], [place] * CT Angiogram Pe Chest (10/09/2019 4:00 PM CDT) Specimen Narrative Performed At CT ANGIOGRAM PE CHEST [facility] INDICATION: PE suspected high prete st prob, chest pain prior hx PE TECHNIQUE: Multidetector CT of the ches t with attention to the pulmonary arteries was performed following the in travenous administration of iodinated contrast. Standard multiplanar reformat sandy images were performed. In addition, postprocessed 3D MIP images were also performed for CT angio graphy. CT imaging was performed with iterative reconstruction technique and/ or automated exposure control to reduce radiation dose. COMPARISON: 09/26/2017. FINDINGS: PULMONARY ARTERIES: The pulmonary art eries are diagnostically opacified without findings for acute pulmonary em bolus. HEART AND GREAT ARTERIES: The heart i s mildly large and there is no pericardial effusion. There are surgica l changes related to prior CABG. The thoracic aorta is normal in caliber. MEDIASTINUM AND JOSUÉ: No mass or hemato ma is identified. No enlarged lymph nodes are seen. Trachea and central a irways are patent. LUNGS: Aside from scattered areas of mild linear atelectasis, the lungs are clear. PLEURA: No pneumothorax or effusion. BONES: No acute osseous abnormality. There are median sternotomy wires. VISUALIZED ABDOMEN: No acute findings. IMPRESSION: 1. No pulmonary embolism. 2. No acute airspace disease. [id number] Procedure Note Interface, Radiology Results Incoming - 10/09/2019 4:[address] ANGIOGRAM PE CHEST INDICATION: PE suspected high pretest prob, chest pain prior hx PE TECHNIQUE: Multidetector CT of the chest with attention to the pulmonary arteries was performed following the intravenous administration of iodinated contrast. Standard multiplanar reformatted images were performed. In addition, postprocessed 3D MIP images were also performed for CT angiography. CT imaging was performed with iterative reconstruction technique and/or automated exposure control to reduce radiation dose. COMPARISON: 09/26/2017. FINDINGS: PULMONARY ARTERIES: The pulmonary arteries are diagnostically opacified without findings for acute pulmonary embolus. HEART AND GREAT ARTERIES: The heart is mildly large and there is no pericardial effusion. 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 The thoracic aorta is normal in caliber. MEDIASTINUM AND JOSUÉ: No mass or hematoma is identified. No enlarged lymph nodes are seen. Trachea and central airways are patent. LUNGS: Aside from scattered areas of mild linear atelectasis, the lungs are clear. PLEURA: No pneumothorax or effusion. BONES: No acute osseous abnormality. There are median sternotomy wires. VISUALIZED ABDOMEN: No acute findings. IMPRESSION: 1. No pulmonary embolism. 2. No acute airspace disease. [id number] Performing Organization Address City/State/ZIP Code [facility] Number [facility] [address] [place] [address] * ECG ED Preliminary Interpretation - Not an Order (10/09/2019 2:16 PM CDT) Narrative Performed At Pritesh Araiza DO 0 4:22 PM ECG ED Preliminary Interpretation - Not an Order Performed by: Pritesh Araiza DO Authorized by: Pritesh Araiaz DO ECG reviewed by ED Physician in the abs ence of a learning operations specialist: yes ([id number]) Interpretation: Interpretation: abnormal Rate: ECG rate: 79 ECG rate assessment: normal Rhythm: Rhythm: sinus rhythm and A-V block Ectopy: Ectopy: none QRS: QRS axis: Normal QRS intervals: Normal Conduction: Conduction: abnormal Abnormal conduction: 1st degree ST segments: ST segments: Normal T waves: T waves: normal * CRITICAL CARE (10/09/2019 2:16 PM CDT) Narrative Performed At Pritesh Araiza DO 0 4:22 PM Critical Care Performed by: Pritesh Araiza DO Authorized by: Pritesh Araiza DO Critical care provider statement: Critical care time (minutes): 60 Critical care end time: 10/09/2019 4 :21 PM Critical care time was exclusive of: Separately billable procedures and treating other patients Critical care was necessary to treat or prevent imminent or life-threatening deterioration of the f ollowing conditions: Cardiac failure Critical care was time spent personal ly by me on the following activities: Ordering and performing t reatments and interventions, ordering and review of laboratory studi es, ordering and review of radiographic studies, pulse oximetry, r e-evaluation of patient's condition, review of old charts, develo pment of treatment plan with patient or surrogate, discussions with consultants, evaluation of patient's response to treatment, examin ation of patient and obtaining history from patient or surrogate Brian 'yes' if you are taking over cri tical care for this patient from another provider.: no * XR Chest 1 Vw Portable (10/09/2019 2:12 PM CDT) Specimen Narrative Performed At EXAMINATION: XR CHEST 1 VW PORTABLE [facility] CLINICAL HISTORY: chest pain COMPARISON: 10/12/2016 IMPRESSION: Sternotomy. Cardiomediastinal silhouett e is enlarged. Pulmonary vasculature within normal limits. Faint bibasilar o pacities likely a combination of atelectasis from shallow inspiratory de pth and possibly mild pulmonary edema. No pleural effusion. [facility]-[id number] Procedure Note Hm Interface, Radiology Results Incoming - 10/09/2019 2:17 PM CDT EXAMINATION: XR CHEST 1 VW PORTABLE CLINICAL HISTORY: chest pain COMPARISON: 10/12/2016 IMPRESSION: Sternotomy. Cardiomediastinal silhouette is enlarged. Pulmonary vasculature within normal limits. Faint bibasilar opacities likely a combination of atelectasis from shallow inspiratory depth and possibly mild pulmonary edema. No pleural effusion. [facility]-[id number] Performing Organization Address City/[facility]/ZIP Code P rigoberto Number [facility] [address] [place] [address] * B natriuretic peptide (10/09/2019 1:56 PM CDT) BNP 38 0 - 100 pg/mL [facility] Specimen Blood Performing Organization Address City/State/ZIP Code [place] [address] [place], [place] [address] PATHOLOGY AND GENOMIC MEDICINE [facility] [address] [place] [address] [facility] after 05/05/2019 Insurance Type Payer Benefit Subscriber ID Effective Phone Address Plan / Dates Group Medicaid PENDING MEDICAID PENDING [id number] 2018- [address] MEDICAID Present [address] [place] [address] [facility] MEDICAID [facility] [id number] 2019-P COMM [employer] resent [facility] Advance Directives For more information, please contact: [phone] Patient Direct Service Provider Explanation Type Date Recorded Advance Directives, 09/26/2017 9:51 PM Living Will and Medical Power of Server Manager Advance Directives, 02/05/2018 6:54 PM Living Will and Medical Power of Server Manager Date Inactivated Comments Code Status Date Activated 10/10/2019 11:46 PM Full Code 10/09/2019 5:58 PM Code Status decision reached by: Patient
--- OUTSIDE RECORDS SUMMARY | 2020-05-05 06:42 | XMS REPORT | Continuity of Care Document ---
Author Author Inocente RegainGoEVA ERIKAJamari Ortiz [employer] Address Unknown Phone Unavailable Care Team Providers Care Group Rooms Coordinator Name Role Phone XipLink Information TRELYS Unavailable Un available Problems Problem Status Onset Date Classification Date Reported Comments Source CHEST PAIN Active 01/27/2019 [facility] ACUTE CHEST PAIN Active 01/27/2019 [facility] CP Active [facility] HEAD INJURY/ BACK PAIN Active 12/04/2016 [facility] Cervicalgia 12/04/2016 12/07/2016 [facility] Strain of muscle and tendon of unspecifi ed wall of thorax, initial encounter 12/04/2016 12/07/2016 [facility] Weakness 09/22/2016 [facility] Headache 09/22/2016 [facility] WEAKENSS Active 09/18/2016 [facility] SOB Active 0 09/04/2016 [facility] SHORTNESS OF BREATH Active 05/16/2016 [facility] ACUTE BACTERIA BRONCHITIS Acti ve 05/16/2016 [facility] ACS Active 0 02/07/2015 [facility] CHEST DISCOMFORT/DIZZINESS Act dyan 02/07/2015 [facility] Discharge Diagnosis: Atypical chest pain 07/11/2014 07/13/2014 [facility] CHEST PAIN, NON ST ELEVATED MYOCARDIAL I Active 07/11/2014 [facility] Discharge Diagnosis: Dental caries 02/28/2014 03/03/2014 [facility] PAIN IN LEFT SIDE OF MOUTH Act dyan 02/26/2014 [facility] HTN, CP Active 01/19/2014 [facility] Transient ischemic attack (disorder) Active 06/25/1994 Problem 01/30/2019 [facility] Abdominal hysterectomy (procedure) Resolved Problem [facility] Acute bronchitis (disorder) Re solved Problem 01/2019 [facility] Altered mental status (finding) Resolved Problem 01/2019 [facility] Angina (disorder) Resolved Problem 01/30/2019 [facility] section (procedure) R esolved Problem 01/2019 [facility] Chest pain (finding) Resolved Problem 01/30/2019 [facility] Atherosclerosis of coronary artery (disorder) Resolved Problem 01/30/2019 [facility] On examination - dental caries (context- dependent category) Active Prob otilia 01/30/2019 [facility] Exacerbation of asthma (disorder) Active Problem 01/2019 [facility] History of - tubal ligation (context-dep endent category) Resolved Pr oblem 01/30/2019 [facility] History of tonsillectomy (situation) Resolved Problem 01/2019 [facility] Hypertensive disorder, systemic arterial (disorder) Active Problem 01/30/2019 [facility] Myocardial infarction (disorder) Resolved Problem 01/2019 [facility] Pulmonary embolism (disorder) Resolved Problem 01/2019 [facility] Sickle cell trait (disorder) R esolved Problem 01/2019 [facility] CHEST PAIN NOS Active [facility] CORONARY ARTERY ANOMALY Active [facility] ACUTE BRONCHITIS DUE TO OTHER SPECIFIED Active [facility] UNSPECIFIED ASTHMA WITH (ACUTE) EXACERBA Active [facility] CHEST PAIN, UNSPECIFIED Active [facility] ESSENTIAL (PRIMARY) HYPERTENSION Active [facility] WEAKNESS Active [facility] UNSTABLE ANGINA Active [facility] Medications Medication Details Route Status Patient Instructions Ordering Provider Order Date Source atorvastatin Notes: (Same as: Lipitor) Inactive 01/29/2019 [facility] famotidine Notes: (Same as: Pe pcid) Inactive 01/28/2019 [facility] Saline Flush 0.9% Notes: Same as: BD Posiflush Sterile Inactive 01/28/2019 [facility] Aspirin 81 MG Chewable Tablet Notes: Take with food. Inactive 01/28/2019 [facility] Ranexa Notes: Same as Ranexa " Do Not Crush" Inactive 01/28/2019 [facility] metoprolol tartrate Notes: (Sa me as: Lopressor) Inactive 01/28/2019 [facility] Lisinopril Notes: (Same as: Pr inivil, Zestril) Inactive 01/28/2019 [facility] Isosorbide Notes: (Same as:Imd ur) "Do Not Crush" Take on empty stomach/ full glass of water. Do not crush Inactive 01/28/2019 [facility] Hydrochlorothiazide 25 MG Oral Tablet Notes: (Same as: Hydrodiuril) With food. Inactive 01/28/2019 [facility] Fluticasone propionate 0.05 MG/ACTUAT Me tered Dose Nasal [place] [Flonase] Notes: (Same as: Flonase) Inactive 01/28/2019 [facility] Famotidine 20 mg, 1 tab, Route : PO, Daily, Dosing Weight 84.716, kg, Start date: 01/28/19 9:00:00 CDT, Duration: 30 day, Stop date: 02/26/19 9:00:00 CDT Inactive 01/28/2019 [facility] clopidogrel Notes: (Same As: P lavix) Inactive 01/28/2019 [facility] K-Dur 20 Notes: (Same as: K-Du r 20) "Do Not Crush" Give with food and full glass of water For patients unable to swallow tablet, dissolve in one half glass of water. Allow about 2 minutes for the tablets to disintegrate. Stir before giving to prepare slurry and administer. Please exclude Patients with feeding tube less than 14 [place] (Dobhoff, J-tube etc) and pediatric and patients. Inactive 01/28/2019 [facility] Potassium Chloride Notes: (Remigio e as: Potassium Chloride) Inactive 01/28/2019 [facility] Ondansetron Notes: (Same as: Ilya alcaraz) Inactive 01/28/2019 [facility] Morphine Notes: (Same as:MORPh ine Sulfate) Inactive 01/28/2019 [facility] Famotidine 20 mg = 1 tab, PO, Daily, # 60 tab, 0 Refill(s) Active 01/28/2019 [facility] Hydrochlorothiazide 25 MG Oral Tablet 25 mg = 1 tab, PO, Daily, 0 Refill(s) Active 01/28/2019 [facility] Lisinopril 20 mg, PO, Daily, 0 Refill(s) Active 01/28/2019 [facility] Nitroglycerin 0.2, Transdermal , Daily, 0 Refill(s) Active 01/28/2019 [facility] atorvastatin 80 mg, PO, Bedtim e, 0 Refill(s) Active 01/28/2019 [facility] Saline Flush 0.9% Notes: Same as: BD Posiflush Sterile No Longer Active 01/28/2019 [facility] Ondansetron Notes: (Same as: Ilya alcaraz) No Longer Active 01/28/2019 [facility] Nitroglycerin Notes: (Same as: Nitroquick, Nitrostat) "Do Not Crush" Sublingual tablet No Longer Active 01/28/2019 [facility] Morphine Notes: (Same as:MORPh ine Sulfate) No Longer Active 01/28/2019 [facility] Aspirin Notes: Take with food. Inactive 01/28/2019 [facility] Ondansetron Notes: (Same as: Ilya alcaraz) MEDICATION WASTE Product Size: 4 mg Product Wasted: ___ mg Inactive 01/28/2019 [facility] Morphine Notes: (Same as:MORPh ine Sulfate) Inactive 01/28/2019 [facility] Zofran Notes: (Same as: Mirnafran ) MEDICATION WASTE Product Size: 4 mg Product Wasted: ___ mg Inactive 03/26/2017 [facility] 12 HR ranolazine 500 MG Extended Release Tablet [Ranexa] Notes: Same as Ranexa "Do Not Crush" Inactive 03/26/2017 [facility] Saline Flush 0.9% Notes: (Same as: BD Posiflush) Inactive 03/26/2017 [facility] isosorbide mononitrate extended release Notes: (Same as:Imdur) "Do Not Crush" Take on empty stomach/ full glass of water. Do not crush Inactive 03/26/2017 [facility] aspirin 81 mg tablet, enteric coated Notes: Do not crush or chew. (Same As: Ecotrin) Inactive 03/26/2017 [facility] Ranexa 1,000 mg, PO, BID, 0 Re fill(s) Active 03/26/2017 [facility] Isosorbide 60 mg, PO, BID, 0 R efill(s) Active 03/26/2017 [facility] Saline Flush 0.9% Notes: (Same as: BD Posiflush) Inactive 03/26/2017 [facility] Nitroglycerin Notes: (Same as: Nitroquick, Nitrostat) "Do Not Crush" Sublingual tablet Inactive 03/26/2017 [facility] Acetaminophen Notes: Do not ex ceed 4 gm/day. (Same as: Tylenol) Inactive 03/26/2017 [facility] Morphine Notes: (Same as:MORPh ine Sulfate) Inactive 03/26/2017 [facility] Aspirin 325 mg, Route: PO, Denzel g form: TAB, ONCE, Dosing Weight 72.727, kg, Priority: STAT, Start date: 03/26/17 3:04:00 CDT, Stop date: 03/26/17 3:04:00 CDT Inactive 03/26/2017 [facility] Zofran 4 mg, Route: IVP, Drug form: INJ, ONCE, Dosing Weight 72.727, kg, Priority: STAT, Start date: 03/26/17 1:04:00 CDT, Stop date: 03/26/17 1:04:00 CDT Inactive 03/26/2017 [facility] Zofran Notes: (Same as: Zofran ) MEDICATION WASTE Product Size: 4 mg Product Wasted: ___ mg Inactive 03/26/2017 [facility] Tylenol 650 mg, Route: PO, Denzel g form: TAB, ONCE, Dosing Weight 70.057, kg, Priority: STAT, Start date: 12/04/16 21:24:00 CDT, Stop date: 12/04/16 21:24:00 CDT Inactiv e 12/05/2016 [facility] Acetaminophen 300 MG / Codeine Phosphate 30 MG Oral Tablet [Tylenol with Codeine #3] 1 - 2 tab, PO, Q6H, PRN Pain, X 4 day, # 32 tab, 0 Refill(s) Active 12/05/2016 [facility] clopidogrel 75 mg oral tablet 75 mg = 1 tab, PO, Daily, 0 Refill(s) Active 11/26/2016 [facility] pantoprazole 40 mg oral enteric coated tablet 40 mg = 1 tab, PO, Before Breakfast, # 30 tab, 0 Refill(s) Active 11/26/2016 [facility] lisinopril Notes: (Same as: Pr inivil, Zestril) Inactive 11/26/2016 [facility] Isosorbide Notes: (Same as:Imd ur) "Do Not Crush" Take on empty stomach/ full glass of water. Do not crush Inactive 11/26/2016 [facility] Hydrochlorothiazide 12.5 MG / Lisinopril 10 MG Oral Tablet 1 tab, Route: PO, Drug Form: TAB, Dosing Weight 70.909, kg, Daily, Start date: 11/26/16 9:00:00 CDT, Duration: 30 day, Stop date: 12/25/16 9:00:00 CDT No Longer Active 11/26/2016 [facility] Fluticasone propionate 0.05 MG/ACTUAT Me tered Dose Nasal [place] [Flonase] Notes: (Same as: Flonase) Inactive 11/26/2016 [facility] Cetirizine Notes: (Same As: Arnold rtec) Inactive 11/26/2016 [facility] clopidogrel Notes: (Same As: P lavix) Inactive 11/26/2016 [facility] hydrochlorothiazide Notes: (Sa me as: Hydrodiuril). Give with food. Inactive 11/26/2016 [facility] Aspirin 325 MG Enteric Coated Tablet Notes: (Do Not Crush) Do not crush or chew. Inactive 11/26/2016 [facility] Pravastatin Notes: (Same as: P ravachol) No Longer Active 11/26/2016 [facility] 12 HR ranolazine 500 MG Extended Release Tablet [Ranexa] Notes: Same as Ranexa "Do Not Crush" No Longer Active 11/26/2016 [facility] metoprolol tartrate Notes: (Sa me as: Lopressor) No Longer Active 11/26/2016 [facility] heparin Notes: porcine heparin No Longer Active 11/26/2016 [facility] Saline Flush 0.9% Notes: (Same as: BD Posiflush) No Longer Active 11/26/2016 [facility] cetirizine 10 mg oral tablet, dispersible 10 mg = 1 tab, PO, Daily, 0 Refill(s) Active 11/25/2016 [facility] Hydrochlorothiazide 12.5 MG / Lisinopril 10 MG Oral Tablet 1 tab, PO, Daily, # 30 tab, 0 Refill(s) Active 11/25/2016 [facility] Hydrochlorothiazide 12.5 MG / Lisinopril 10 MG Oral Tablet 1 tab, PO, Daily, # 30 tab, 0 Refill(s) No Longer Active 11/25/2016 [facility] Ativan Notes: (Same as: Ativan) No Longer Active 11/25/2016 [facility] Insulin, Aspart, Human Notes: Roll in palms of hands gently; Do not shake vigorously. (Same as: NovoLOG) "single patient use only" WASTE: F/P - Black; E - Municipal Trash Bin Stable for 28 days at room temperature. Expires in days from Date No Longer Active 11/25/2016 [facility] Dextrose 50% Syringe 12.5 gm, 25 mL, Route: IVP, Drug Form: INJ, Dosing Weight 77.273, kg, PRN, PRN Blood Glucose Results, Start date: 11/25/16 15:33:00 CDT, Duration: 30 day, Stop date: 12/25/16 15:32:00 CDT No Longer Active 11/25/2016 [facility] Glucagon 1 mg, Route: IM, Drug form: PDR/INJ, PRN, Dosing Weight 77.273, kg, PRN Blood Glucose Results, Start date: 11/25/16 15:33:00 CDT, Duration: 30 day, Stop date: 12/25/16 15:32:00 CDT No Longer Active 11/25/2016 [facility] Saline Flush 0.9% Notes: (Same as: BD Posiflush) No Longer Active 11/25/2016 [facility] Protonix Notes: Tablet should not be chewed or crushed. (Same as: Protonix) No Longer Active 11/25/2016 [facility] Morphine Notes: (Same as:MORPh ine Sulfate) No Longer Active 11/25/2016 [facility] Restoril Notes: (Same As: Rest oril) No Longer Active 11/25/2016 [facility] Docusate Sodium 100 MG Oral Capsule [Colace] Notes: (Same as: Colace) (Do Not Crush) No Longer Active 11/25/2016 [facility] GI cocktail Notes: [place] = antacid with simethicone 22.5 mL - lidocaine viscous 7.5 mL No Longer Active 11/25/2016 [facility] Hydralazine Notes: (Same as: A presoline) Push over 5 minutes No Longer Active 11/25/2016 [facility] Zofran Notes: (Same as: Zofran ) MEDICATION WASTE Product Size: 4 mg Product Wasted: 0 mg No Longer Active 11/25/2016 [facility] Lopressor Notes: (Same as: Lop ressor) Push over 2 minutes No Longer Active 11/25/2016 [facility] Acetaminophen Notes: Do not ex ceed 4 gm/day. (Same as: Tylenol) No Longer Active 11/25/2016 [facility] Acetaminophen 325 MG / Hydrocodone Marly trate 7.5 MG Oral Tablet [[place] 7.5/325] Notes: Same as [place] 325-7.5mg Do not exceed 4gm/day of acetaminophen. No Longer Active 11/25/2016 [facility] Nitroglycerin Notes: (Same as: Nitroquick, Nitrostat) "Do Not Crush" Sublingual tablet No Longer Active 11/25/2016 [facility] Ativan 1 mg, Route: IVP, Drug form: INJ, ONCE, Dosing Weight 77.273, kg, Priority: STAT, Start date: 11/25/16 7:02:00 CDT, Stop date: 11/25/16 7:02:00 CDT Inactive 11/25/2016 [facility] Fluticasone propionate 0.05 MG/ACTUAT Me tered Dose Nasal [place] [Flonase] Notes: (Same as: Flonase) No Longer Active 09/20/2016 [facility] Cetirizine Notes: (Same As: Zy rtec) No Longer Active 09/20/2016 [facility] potassium chloride Notes: (Remigio e as: K-Dur 20) "Do Not Crush" With food and full glass of water No Longer Active 09/20/2016 [facility] Pravastatin Notes: Same as Pra vachol Inactive 09/20/2016 [facility] metoprolol tartrate Notes: ( me as: Lopressor) Inactive 09/20/2016 [facility] atorvastatin Notes: (Same as: Lipitor) Inactive 09/20/2016 [facility] 12 HR ranolazine 500 MG Extended Release Tablet [Ranexa] Notes: Same as Ranexa "Do Not Crush" Inactive 09/19/2016 [facility] Isosorbide Notes: (Same as:Imd ur) "Do Not Crush" Take on empty stomach/ full glass of water. Do not crush Inactive 09/19/2016 [facility] Nitroglycerin 0.4 MG Sublingual Tablet 0.4 mg, Route: SL, Drug form: TAB, PRN, Dosing Weight 74.205, kg, PRN Chest Pain, Start date: 09/19/16 9:58:00 CDT, Duration: 30 day, Stop date: 10/19/16 9:57:00 CDT Inactive 09/19/2016 [facility] Saline Flush 0.9% Notes: (Same as: BD Posiflush) Inactive 09/19/2016 [facility] pantoprazole Notes: For IV pus h reconstitute with 10 ml 0.9% sodium chloride and push over 2 minutes. (Same as: Protonix) Inactive 09/19/2016 [facility] Aspirin 325 MG Enteric Coated Tablet Notes: (Do Not Crush) Do not crush or chew. Inactive 09/19/2016 [facility] Enoxaparin Notes: (Same as: Lo venox) Inactive 09/19/2016 [facility] clopidogrel Notes: (Same As: P lavix) Inactive 09/19/2016 [facility] Nitroglycerin Notes: (Same as: Nitroquick, Nitrostat) "Do Not Crush" Sublingual tablet Inactive 09/19/2016 [facility] Hydralazine Notes: (Same as: A presoline) Push over 5 minutes Inactive 09/19/2016 [facility] pravastatin 80 mg oral tablet 80 mg = 1 tab, PO, Bedtime, 0 Refill(s) Active 09/19/2016 [facility] Saline Flush 0.9% Notes: (Same as: BD Posiflush) No Longer Active 09/19/2016 [facility] Acetaminophen Notes: Do not ex ceed 4 gm/day. (Same as: Tylenol) No Longer Active 09/19/2016 [facility] NS + KCL 20mEq/L 1000ml (Premix) 1,000 mL Notes: PREMIX IV - Do Not Alter WASTE: F/P - Sink; E - Municipal Trash Bin No Longer Active 09/19/2016 [facility] Aspirin Notes: Take with food. Inactive 09/19/2016 [facility] Ondansetron Notes: (Same as: Ilya alcaraz) MEDICATION WASTE Product Size: 4 mg Product Wasted: ___ mg Inactive 09/19/2016 [facility] Morphine Notes: (Same as:MORPh ine Sulfate) Inactive 09/19/2016 [facility] potassium chloride Notes: (Remigio e as: K-Dur 20) "Do Not Crush" With food and full glass of water Inactive 09/19/2016 [facility] Saline Flush 0.9% Notes: (Same as: BD Posiflush) Inactive 09/19/2016 [facility] Lipitor Notes: (Same As: Lipit or) No Longer Active 09/05/2016 [facility] Nitroglycerin 0.4 MG Sublingual Tablet 0.4 mg, SL, PRN, PRN chest pain, # 100 tab, 0 Refill(s) Active 09/04/2016 [facility] isosorbide mononitrate 30 mg oral tablet , extended release 60 mg = 2 tab, PO, QAM, # 60 tab, 0 Refill(s) Active 09/04/2016 [facility] clopidogrel 75 mg oral tablet 75 mg = 1 tab, PO, Daily, # 30 tab, 2 Refill(s) Active 09/04/2016 [facility] atorvastatin 20 MG Oral Tablet [Lipitor] 20 mg = 1 tab, PO, Bedtime, # 30 tab, 0 Refill(s) Active 09/04/2016 [facility] Fluticasone propionate 0.05 MG/ACTUAT Me tered Dose Nasal [place] [Flonase] 100 microgram = 2 spray, Each Affected N ostril, Daily, # 1 ea, 0 Refill(s) Active 09/04/2016 [facility] cetirizine 10 mg oral tablet 1 0 mg = 1 tab, PO, Daily, # 30 tab, 0 Refill(s) Active 09/04/2016 [facility] 12 HR ranolazine 500 MG Extended Release Tablet [Ranexa] 500 mg, PO, BID, # 60 tab, 0 Refill(s) Active 09/04/2016 [facility] metoprolol tartrate 25 mg oral tablet 25 mg, PO, BID, # 60 tab, 0 Refill(s) Active 09/04/2016 [facility] Aspirin 325 MG Oral Tablet 325 mg = 1 tab, PO, Daily, # 100 tab, 0 Refill(s) Active 09/04/2016 [facility] Cetirizine Notes: (Same As: Arnold rtec) No Longer Active 09/04/2016 [facility] Fluticasone propionate 0.05 MG/ACTUAT Me tered Dose Nasal [place] [Flonase] Notes: (Same as: Flonase) No Longer Active 09/04/2016 [facility] Saline Flush 0.9% Notes: (Same as: BD Posiflush) No Longer Active 09/04/2016 [facility] Aspirin 325 MG Enteric Coated Tablet Notes: (Do Not Crush) Do not crush or chew. No Longer Active 09/04/2016 [facility] Ranexa Notes: Same as Ranexa " Do Not Crush" No Longer Active 09/04/2016 [facility] metoprolol tartrate Notes: (Sa me as: Lopressor) No Longer Active 09/04/2016 [facility] Isosorbide Notes: (Same as:Imd ur) "Do Not Crush" Take on empty stomach/ full glass of water. Do not crush No Longer Active 09/04/2016 [facility] clopidogrel Notes: (Same As: P lavix) No Longer Active 09/04/2016 [facility] Hydralazine Notes: (Same as: A presoline) Push over 5 minutes No Longer Active 09/04/2016 [facility] Enoxaparin Notes: (Same as: Lo venox) No Longer Active 09/04/2016 [facility] Saline Flush 0.9% Notes: (Same as: BD Posiflush) No Longer Active 09/04/2016 [facility] Nitroglycerin Notes: (Same as: Nitroquick, Nitrostat) "Do Not Crush" Sublingual tablet No Longer Active 09/04/2016 [facility] Morphine Notes: (Same as:MORPh ine Sulfate) No Longer Active 09/04/2016 [facility] Ondansetron Notes: (Same as: Ilya ofran) No Longer Active 09/04/2016 [facility] Benadryl 25 mg, Route: IVP, ON CE, Dosing Weight 65.909, kg, Priority: STAT, Start date: 09/04/16 6:30:00 CDT, Stop date: 09/04/16 6:30:00 CDT Inactive 09/04/2016 [facility] potassium chloride 20 mEq oral tablet, extended releas e 40 mEq, 2 tab, Route: PO, Drug form: ERTAB, ONCE, Dosing Weight 65.909, kg, Priority: STAT, Start date: 09/04/16 6:24:00 CDT, Stop date: 09/04/16 6:24:00 CDT Inactive 09/04/2016 [facility] Nitroglycerin 0.4 MG Sublingual Tablet 0.4 mg, Route: SL, Q5Min, Dosing Weight 65.909, kg, PRN Chest Pain, Priority: STAT, Start date: 09/04/16 6:20:00 CDT, Duration: 3 doses or times, Stop date: Limited # of times Inactive 09/04/2016 [facility] Hydralazine Notes: (Same as: A presoline) Push over 5 minutes Inactive 09/04/2016 [facility] Aspirin Notes: Take with food. Inactive 09/04/2016 [facility] Zofran Notes: (Same as: Zofran ) MEDICATION WASTE Product Size: 4 mg Product Wasted: ___ mg Inactive 09/04/2016 [facility] Morphine Notes: (Same as:MORPh ine Sulfate) Inactive 09/04/2016 [facility] predniSONE 10 mg oral tablet S ee Special Instructions, PO, Daily, 6 day regimen: Day 1 - 30 mg (3 tabs) Day 2 - 25 mg (2 1/2 tabs) Day 3 - 20 mg (2 tabs) Day 4 - 15 mg (1 1/2 tabs) Day 5 - 10 mg (1 tab) Day 6 - 5 mg (1/2 tab), X 6 day, # 12 tab, 0 Refill(s) Active 05/18/2016 [facility] Aspirin 325 MG Oral Tablet 325 mg = 1 tab, PO, Daily, 0 Refill(s) Active 05/18/2016 [facility] isosorbide mononitrate 30 mg oral tablet , extended release 60 mg = 2 tab, PO, QAM, # 60 tab, 0 Refill(s) Active 05/18/2016 [facility] Amoxicillin 875 MG / Clavulanate 125 MG Oral Tablet [Augmentin 875-mg] 1 tab, PO, Q12H, X 10 day, # 20 tab, 0 R efill(s) Active 05/18/2016 [facility] aspirin 325 mg tablet Notes: T rashard with food. Inactive 05/18/2016 [facility] Xanax Notes: With food or milk (Same as: Xanax) Inactive 05/18/2016 [facility] Solu-Medrol Notes: (Same as:So janine-MEDROL, A-Methapred) Inactive 05/17/2016 [facility] Levalbuterol Notes: SEE RT DOC UMENTATION (Same as:Xopenex) Non-Formulary No Longer Active 05/17/2016 [facility] Ativan 1 mg, Route: IVP, Drug form: INJ, ONCE, Dosing Weight 66.903, kg, PRN Anxiety, Priority: STAT, Start date: 05/17/16 10:50:00 [employer] Inactive 05/17/2016 [facility] Mucinex Notes: (Same as: Guaif enesin LA, Humibid LA, Mucinex) "Do Not Crush" Take medication with plenty of water. No Longer Active 05/17/2016 [facility] Ativan Notes: (Same as: Ativan) Inactive 05/17/2016 [facility] isosorbide mononitrate extended release Notes: (Same as:Imdur) "Do Not Crush" Take on empty stomach/ full glass of water. Do not crush No Longer Active 05/17/2016 [facility] DuoNeb inhalation solution Not es: (Same as: Duoneb) Inactive 05/17/2016 [facility] Lipitor Notes: (Same As: Lipit or) No Longer Active 05/17/2016 [facility] Ambien Notes: (Same As: Ambien) No Longer Active 05/17/2016 [facility] Amoxicillin 875 MG / Clavulanate 125 MG Oral Tablet [Augmentin 875-mg] Notes: With food. (Same as: Augmentin 87 5) No Longer Active 05/16/2016 [facility] Solu-Medrol Notes: (Same as:So janine-MEDROL, A-Methapred) No Longer Active 05/16/2016 [facility] Albuterol 0.833 MG/ML / Ipratropium Brom kalen 0.167 MG/ML Inhalant Solution [DuoNeb] Notes: (Same as: Duoneb) No Longer Active 05/16/2016 [facility] clopidogrel Notes: (Same As: P lavix) No Longer Active 05/16/2016 [facility] Ranexa Notes: Same as Ranexa " Do Not Crush" No Longer Active 05/16/2016 [facility] metoprolol tartrate Notes: (Sa me as: Lopressor) No Longer Active 05/16/2016 [facility] Saline Flush 0.9% Notes: Same as: BD Posiflush Sterile No Longer Active 05/16/2016 [facility] Aspirin 81 MG Chewable Tablet Notes: Take with food. No Longer Active 05/16/2016 [facility] Ondansetron Notes: (Same as: Ilya alcaraz) MEDICATION WASTE Product Size: 4 mg Product Wasted: ___ mg Inactive 05/16/2016 [facility] Omnipaque 350 Notes: (same as: Omnipaque 350). WASTE: F/P - Black; E - Municipal Trash Bin Inactive 05/16/2016 [facility] Enoxaparin Notes: (Same as: Lo venox) Inactive 05/16/2016 [facility] Lisinopril Notes: (Same as: Pr inivil, Zestril) Inactive 05/16/2016 [facility] Saline Flush 0.9% Notes: Same as: BD Posiflush Sterile No Longer Active 05/16/2016 [facility] Morphine Notes: (Same as:MORPh ine Sulfate) No Longer Active 05/16/2016 [facility] Nitroglycerin Notes: (Same as: Nitroquick, Nitrostat) "Do Not Crush" Sublingual tablet No Longer Active 05/16/2016 [facility] Potassium Chloride 20 MEQ Extended Release Tablet Notes: (Same as: K-Dur 20) "Do Not Crush" With food and full glass of water Inactive 05/16/2016 [facility] Albuterol 0.833 MG/ML / Ipratropium Brom kalen 0.167 MG/ML Inhalant Solution [DuoNeb] Notes: (Same as: Duoneb) Inactive 05/16/2016 [facility] Azithromycin Notes: (Same As: Zithromax IV) Inactive 05/16/2016 [facility] Rocephin Notes: (Same As: Roce phin). Use with 100 mL NS and infuse over 30 min MEDICATION WASTE Product Size: 1000 mg Product Wasted: ___ mg Inactive 05/16/2016 [facility] Aspirin 325 MG Oral Tablet Not es: Take with food. Inactive 05/16/2016 [facility] Saline Flush 0.9% Notes: Same as: BD Posiflush Sterile No Longer Active 05/16/2016 [facility] Ranexa Notes: Same as Ranexa " Do Not Crush" Inactive 04/24/2015 [facility] 12 HR ranolazine 500 MG Extended Release Tablet 1,000 mg = 2 tab, PO, Bedtime, # 60 tab, 0 Refill(s) Active 04/24/2015 [facility] Ranexa Notes: Same as Ranexa " Do Not Crush" No Longer Active 04/24/2015 [facility] Nitroglycerin Notes: (Same as: Nitroquick, Nitrostat) "Do Not Crush" Sublingual tablet No Longer Active 04/23/2015 [facility] Sodium Chloride 0.154 MEQ/ML Injectable Solution 750 mL, Rate: 75 ml/hr, Infuse over: 10 hr, Route: IV, Dosing Weight 66.364 kg, Total Volume: 750, Start date: 04/23/15 16:48:00, Duration: 1 doses or times, Stop date: 04/24/15 2:47:00 No Longer Active 04/23/2015 [facility] Docusate Sodium 100 MG Oral Capsule [Colace] Notes: (Same as: Colace) (Do Not Crush) No Longer Active 04/23/2015 [facility] heparin additive 25,000 unit [12 unit/kg /hr] + Premix Diluent Dextrose 5% 500 mL 500 mL, Rate: 13.42 ml/hr, Infuse over: 37.3 hr, Route: IV, Dosing Weight 55.9 kg, Total Volume: 500 mL, Start date: 04/23/15 8:27:00, Duration: 30 day, Stop date: 05/23/15 8:26:00 Inactive 04/23/2015 [facility] heparin sodium, porcine 1000 UNT/ML Injectable Solutio n Route: IVP, PRN, 1,700 unit, 1.7 mL, Drug form: INJ, PRN, Heparin Protocol, Start date: 04/23/15 8:27:00 Stop date: 05/23/15 7:26:00, 30 day Inactive 04/23/2015 [facility] Morphine Notes: (Same as:MORPh ine Sulfate) Inactive 04/23/2015 [facility] Lipitor Notes: (Same As: Lipit or) No Longer Active 04/23/2015 [facility] Ranexa Notes: Same as Ranexa " Do Not Crush" No Longer Active 04/23/2015 [facility] Tylenol Notes: Do not exceed 4 gm/day. (Same as: Tylenol) No Longer Active 04/22/2015 [facility] Ranexa Notes: Same as Ranexa " Do Not Crush" Inactive 04/22/2015 [facility] metoprolol tartrate Notes: (Sa me as: Lopressor) No Longer Active 04/22/2015 [facility] clopidogrel Notes: (Same As: P lavix) No Longer Active 04/22/2015 [facility] Aspirin Notes: Do not crush or chew. (Same As: Ecotrin) No Longer Active 04/22/2015 [facility] Saline Flush 0.9% Notes: Same as: BD Posiflush Sterile No Longer Active 04/22/2015 [facility] Enoxaparin Notes: (Same as: Lo venox) No Longer Active 04/22/2015 [facility] Ranexa 500 mg, PO, BID, 0 Refi ll(s) On Hold 04/22/2015 [facility] metoprolol tartrate 25 mg, PO, BID, 0 Refill(s) Active 04/22/2015 [facility] Saline Flush 0.9% Notes: Same as: BD Posiflush Sterile No Longer Active 04/22/2015 [facility] Nitroglycerin Notes: (Same as: Nitroquick, Nitrostat) "Do Not Crush" Sublingual tablet No Longer Active 04/22/2015 [facility] Ondansetron Notes: (Same as: Ilya alcaraz) No Longer Active 04/22/2015 [facility] Morphine Notes: (Same as:MORPh ine Sulfate) Inactive 04/22/2015 [facility] Morphine Notes: (Same as:MORPh ine Sulfate) Inactive 04/22/2015 [facility] Ondansetron Notes: (Same as: Ilya alcaraz) MEDICATION WASTE Product Size: 4 mg Product Wasted: ___ mg Inactive 04/22/2015 [facility] Nitroglycerin 0.02 MG/MG Topical Ointment Notes: (20 mg NTG per gram) (Same as:Nitro-Bid) Inactive 04/22/2015 [facility] Morphine Notes: (Same as:MORPh ine Sulfate) Inactive 04/22/2015 [facility] Tylenol Notes: Do not exceed 4 gm/day. (Same as: Tylenol) No Longer Active 02/10/2015 [facility] Lipitor Notes: (Same As: Lipit or) No Longer Active 02/10/2015 [facility] Nitroglycerin 0.4 MG Sublingual Tablet Notes: (Same as:Nitroquick, Nitrostat) "Do Not Crush" Sublingual tablet No Longer Active 02/10/2015 [facility] Nitroglycerin 0.4 MG Sublingual Tablet 0.4 mg, SL, PRN, PRN chest pain, # 100 tab, 0 Refill(s) Active 02/09/2015 [facility] isosorbide mononitrate 60 mg oral tablet , extended release 60 mg = 1 tab, PO, Daily, # 30 tab, 0 Refill(s) Active 02/09/2015 [facility] clopidogrel 75 mg oral tablet 75 mg = 1 tab, PO, Daily, # 30 tab, 2 Refill(s) Active 02/09/2015 [facility] atorvastatin 20 MG Oral Tablet [Lipitor] 20 mg = 1 tab, PO, Bedtime, # 30 tab, 0 Refill(s) Active 02/09/2015 [facility] carvedilol 25 mg oral tablet 2 5 mg = 1 tab, PO, Q12H, # 60 tab, 0 Refill(s) Active 02/09/2015 [facility] amLODIPine 10 mg oral tablet 1 0 mg = 1 tab, PO, Daily, # 30 tab, 0 Refill(s) Active 02/09/2015 [facility] heparin Notes: porcine heparin No Longer Active 02/09/2015 [facility] atorvastatin Notes: Same as Li pitor No Longer Active 02/09/2015 [facility] Oxycodone Hydrochloride 5 MG Oral Tablet Notes: (Same as: Roxicodone) No Longer Active 02/09/2015 [facility] Docusate Sodium 100 MG Oral Capsule [Colace] Notes: (Same as: Colace) (Do Not Crush) No Longer Active 02/08/2015 [facility] sennosides, LONG TERM Notes: (Same a s: Senokot) No Longer Active 02/08/2015 [facility] Isosorbide Notes: (Same as:Imd ur) "Do Not Crush" Take on empty stomach/ full glass of water. Do not crush No Longer Active 02/08/2015 [facility] clopidogrel Notes: (Same As: P lavix) No Longer Active 02/08/2015 [facility] carvedilol 12.5 mg, Route: PO, Drug form: TAB, BID, Dosing Weight 68.182, kg, Start date: 02/08/15 9:00:00, Duration: 30 day, Stop date: 03/09/15 17:00:00 No Longer Active 02/08/2015 [facility] Aspirin Notes: Take with food. No Longer Active 02/08/2015 [facility] Norvasc 10 mg, Route: PO, Drug form: TAB, Daily, Dosing Weight 68.182, kg, Start date: 02/08/15 9:00:00, Duration: 30 day, Stop date: 03/09/15 9:00:00 No Longer Active 02/08/2015 [facility] Potassium Chloride 20 MEQ Extended Release Tablet Notes: (Same as: K-Dur 20) "Do Not Crush" With food and full glass of water Inactive 02/08/2015 [facility] Potassium Chloride 20 MEQ Extended Release Tablet Notes: (Same as: K-Dur 20) "Do Not Crush" With food and full glass of water Inactive 02/08/2015 [facility] normal saline 0.9% IV 1,000 mL 1,000 mL, Rate: 150 ml/hr, Infuse over: 6.7 hr, Route: IV, Dosing Weight 71.023 kg, Total Volume: 1,000, Start date: 02/08/15 1:07:00, Duration: 30 day, Stop date: 03/10/15 1:06:00 No Longer Active 02/08/2015 [facility] Zofran Notes: (Same as: Zofran) No Longer Active 02/08/2015 [facility] Iohexol Notes: (same as:Omnipa que 350). No Longer Active 02/08/2015 [facility] carvedilol Notes: Give with fo od. (Same As: Coreg) Inactive 02/08/2015 [facility] carvedilol Notes: Give with fo od. (Same As: Coreg) Inactive 02/08/2015 [facility] Morphine Notes: (Same as:MORPh ine Sulfate) No Longer Active 02/08/2015 [facility] clopidogrel 75 mg oral tablet 75 mg = 1 tab, PO, Daily, 0 Refill(s) No Longer Active 02/08/2015 [facility] Nitroglycerin 0.4 mg, SL, PRN, 0 Refill(s) No Longer Active 02/08/2015 [facility] Amlodipine 10 MG Oral Tablet [Norvasc] 10 mg = 1 tab, PO, Daily, 0 Refill(s) No Longer Active 02/08/2015 [facility] Aspirin 81 mg, PO, Daily, 0 Re fill(s) Active 02/08/2015 [facility] carvedilol 12.5 mg oral tablet 12.5 mg = 1 tab, PO, BID, 0 Refill(s) No Longer Active 02/08/2015 [facility] Isosorbide 30 mg, PO, Daily, 0 Refill(s) No Longer Active 02/08/2015 [facility] Plavix Notes: ( Same as: Plavi x) Inactive 02/08/2015 [facility] Morphine Notes: (Same as:MORPh ine Sulfate) Inactive 02/07/2015 [facility] heparin sodium, porcine 5000 UNT/ML Injectable Solutio n 3,400 unit, 3.4 mL, Route: IV, Drug form: INJ, ONCE, Dosing Weight 68.182, kg, Priority: STAT, Start date: 02/07/15 18:52:00, Stop date: 02/07/15 18:52:00 Inactive 02/07/2015 [facility] heparin sodium, porcine 1000 UNT/ML Injectable Solutio n Route: IVP, PRN, 3,400 unit, 3.4 mL, Drug form: INJ, PRN, Heparin Protocol, Start date: 02/07/15 18:52:00 Stop date: 03/09/15 18:51:00, 30 day No Longer Active 02/07/2015 [facility] heparin additive 25,000 unit [12 unit/kg /hr] + Premix Diluent Dextrose 5% 500 mL 500 mL, Rate: 13.44 ml/hr, Infuse over: 37.2 hr, Route: IV, Dosing Weight 56 kg, Total Volume: 500 mL, Start date: 02/07/15 18:52:00, Duration: 30 day, Stop date: 03/09/15 18:51:00 No Longer Active 02/07/2015 [facility] Nitroglycerin 0.02 MG/MG Topical Ointment Notes: 1 gram is approximately 1 inch of nitroglycerin ointment (20 mg NTG per gram) (Same as:Nitro-Bid) Inactive 02/07/2015 [facility] Saline Flush 0.9% Notes: (Same as: BD Posiflush) No Longer Active 02/07/2015 [facility] Zofran Notes: (Same as: Zofran ) MEDICATION WASTE Product Size: 4 mg Product Wasted: ___ mg Inactive 02/07/2015 [facility] Aspirin Notes: Take with food. Inactive 02/07/2015 [facility] Plavix Notes: (Same As: Plavix) No Longer Active 07/15/2014 [facility] Amlodipine Notes: (Same as: No rvasc) No Longer Active 07/15/[address] [facility] Protonix Notes: Tablet should not be chewed or crushed. (Same as: Protonix) No Longer Active 07/15/[address] [facility] amLODIPine 5 mg oral tablet 5 mg, PO, Daily, # 90 tab, 3 Refill(s) Active 07/14/2014 [facility] pravastatin 20 mg oral tablet 40 mg = 2 tab, PO, Bedtime, # 90 tab, 3 Refill(s) Active 07/14/2014 [facility] isosorbide mononitrate 30 mg oral tablet , extended release 30 mg = 1 tab, PO, Daily, # 90 tab, 3 Refill(s) Active 07/14/2014 [facility] clopidogrel 75 MG Oral Tablet [Plavix] 75 mg, PO, Daily, # 90 tab, 3 Refill(s) Active 07/14/2014 [facility] Plavix Notes: ( Same as: Plavi x) Inactive 07/14/2014 [facility] isosorbide mononitrate extended release Notes: (Same as:Imdur) "Do Not Crush" Take on empty stomach/ full glass of water. Do not crush Inactive 07/14/2014 [facility] Enoxaparin Notes: (Same as: Lo venox) Inactive 07/14/2014 [facility] Saline Flush 0.9% 10 ml, Route : IVP, Drug Form: INJ, Dosing Weight 72.727, kg, Q12H, Start date: 07/13/14 21:00:00, Duration: 30 day, Stop date: 08/12/14 9:00:00 Inactive 07/14/2014 [facility] Pravachol Notes: (Same as: Pra vachol) No Longer Active 07/14/2014 [facility] carvedilol 3.125 mg, Route: PO , Drug form: TAB, Q12H, Dosing Weight 72.727, kg, Start date: 07/13/14 21:00:00, Duration: 30 day, Stop date: 08/12/14 9:00:00 Inactiv e 07/14/2014 [facility] eptifibatide 75 mg Notes: (Remigio e as: Integrelin) Final conc = 0.75 mg/mL - Premix Bottle No Longer Active 07/13/2014 [facility] Saline Flush 0.9% 10 ml, Route : IVP, Drug Form: INJ, Dosing Weight 72.727, kg, PRN, PRN Line Flush, Start date: 07/13/14 16:27:00, Duration: 30 day, Stop date: 08/12/14 16:26:00 Inactive 07/13/2014 [facility] Nitroglycerin Notes: (Same as: Nitroquick, Nitrostat) "Do Not Crush" Sublingual tablet No Longer Active 07/13/2014 [facility] Saline Flush 0.9% Notes: Same as: BD Posiflush Sterile No Longer Active 07/13/2014 [facility] K-Dur 20 Notes: (Same as: K-Du r 20) "Do Not Crush" With food and full glass of water Inactive 07/13/2014 [facility] Saline Flush 0.9% Notes: Same as: BD Posiflush Sterile No Longer Active 07/12/2014 [facility] Saline Flush 0.9% Notes: Same as: BD Posiflush Sterile Inactive 07/12/2014 [facility] pantoprazole Notes: For IV pus h reconstitute with 10 ml 0.9% sodium chloride and push over 2 minutes. (Same as: Protonix) No Longer Active 07/12/2014 [facility] metoprolol extended release No [place]: (Same as: Toprol XL) Do Not Crush No Longer Active 07/12/2014 [facility] Aspirin 81 MG Enteric Coated Tablet Notes: Do not crush or chew. (Same As: Ecotrin) No Longer Active 07/12/2014 [facility] Nitroglycerin 0.02 MG/MG Topical Ointment Notes: 1 gram is approximately 1 inch of nitroglycerin ointment (20 mg NTG per gram) (Same as:Nitro-Bid) No Longer Active 07/12/2014 [facility] Saline Flush 0.9% Notes: Same as: BD Posiflush Sterile No Longer Active 07/12/2014 [facility] Nitroglycerin Notes: (Same as: Nitroquick, Nitrostat) "Do Not Crush" Sublingual tablet No Longer Active 07/12/2014 [facility] Ondansetron Notes: (Same as: Ilya alcaraz) No Longer Active 07/12/2014 [facility] Aspirin 81 MG Chewable Tablet 324 mg, Route: PO, Drug form: CHEWTAB, ONCE, Dosing Weight 72.727, kg, Priority: STAT, Start date: 07/11/14 22:57:00, Stop date: 07/11/14 22:57:00 Inactive 07/12/2014 [facility] Nitroglycerin 0.02 MG/MG Topical Ointment 0.5 inch, Route: TOP, Drug Form: OINT, Dosing Weight 72.727, kg, ONCE, STAT, Start date: 07/11/14 22:46:00, Stop date: 07/11/14 22:46:00 Inactive 07/12/2014 [facility] Lovenox Notes: Nurse to ensure documentation of patient education per anticoagulation policy. (Same as: Lovenox) No Longer Active 07/12/2014 [facility] Ondansetron Notes: (Same as: Ilya alcaraz) Inactive 07/12/2014 [facility] Saline Flush 0.9% Notes: Same as: BD Posiflush Sterile No Longer Active 07/12/2014 [facility] Omnipaque 350 Notes: (same as: Omnipaque 350). Inactive 07/11/2014 [facility] Nitroglycerin Notes: (Same as: Nitroquick, Nitrostat) "Do Not Crush" Sublingual tablet Inactive 07/11/2014 [facility] aspirin Notes: Take with food. Inactive 07/11/2014 [facility] Saline Flush 0.9% Notes: Same as: BD Posiflush Sterile Inactive 07/11/2014 [facility] Norvasc Notes: (Same as: Norva sc) No Longer Active 07/02/2014 [facility] hydrochlorothiazide 25 mg oral tablet Notes: (Same as: Hydrodiuril) With food. No Longer Active 07/02/2014 [facility] Benicar 20 mg, 1 tab, Route: P O, Drug form: TAB, Daily, Start date: 07/02/14 9:00:00, Duration: 30 day, Stop date: 07/31/14 9:00:00 No Longer Active 07/02/2014 [facility] Aspirin 81 MG Enteric Coated Tablet 81 mg = 1 tab, PO, Daily, # 30 tab, 2 Refill(s) Active 07/02/2014 [facility] Nitroglycerin 0.4 MG Sublingual Tablet 0.4 mg = 1 tab, SL, Q5Min, Chest Pain, # 30 tab, 0 Refill(s) Active 07/02/2014 [facility] metoprolol tartrate 25 mg oral tablet 25 mg = 1 tab, PO, Q8H, # 90 tab, 2 Refill(s) Active 07/02/2014 [facility] Amlodipine 5 MG / Hydrochlorothiazide 12 .5 MG / Olmesartan medoxomil 20 MG Oral Tablet [Tribenzor 20/5/12.5] 1 tab, PO, Daily, # 30 tab, 2 Refill(s) Active 07/02/2014 [facility] metoprolol tartrate 25 mg oral tablet 25 mg = 1 tab, PO, Q8H, 0 Refill(s) Inactive 07/02/2014 [facility] Nitroglycerin 0.4 MG Sublingual Tablet 0.4 mg = 1 tab, SL, Q5Min, Chest Pain, 0 Refill(s) Inactive 07/02/2014 [facility] Aspirin 81 MG Enteric Coated Tablet 81 mg = 1 tab, PO, Daily, # 0 tab, 0 Refill(s) Inactive 07/01/2014 [facility] Potassium Chloride Notes: ([facility] e as: K-Dur 20) "Do Not Crush" With food and full glass of water Inactive 07/01/2014 [facility] metoprolol tartrate Notes: ([facility] as: Lopressor) Inactive 07/01/2014 [facility] Morphine Notes: (Same as:MORPh ine Sulfate) Inactive 07/01/2014 [facility] Zofran Notes: (Same as: Zofran) Inactive 07/01/2014 [facility] Saline Flush 0.9% Notes: Same as: BD Posiflush Sterile Inactive 07/01/2014 [facility] Aspirin 325 MG Enteric Coated Tablet Notes: (Do Not Crush) Do not crush or chew. Inactive 07/01/2014 [facility] Nitroglycerin 0.02 MG/MG Topical Ointment Notes: 1 gram is approximately 1 inch of nitroglycerin ointment (20 mg NTG per gram) (Same as:Nitro-Bid) Inactive 07/01/2014 [facility] Lovenox Notes: (Same as: Loven ox) Inactive 07/01/2014 [facility] Amlodipine 5 MG / Hydrochlorothiazide 12 .5 MG / Olmesartan medoxomil 20 MG Oral Tablet [Tribenzor 20/5/12.5] 1 tab, Route: PO, Dosing Weight 70.455, kg, Daily, Start date: 07/01/14 9:00:00, Duration: 30 day, Stop date: 07/30/14 9:00:00 Inactiv e 07/01/2014 [facility] Saline Flush 0.9% Notes: Same as: BD Posiflush Sterile Inactive 07/01/2014 [facility] Nitroglycerin Notes: (Same as: Nitroquick, Nitrostat) "Do Not Crush" Sublingual tablet Inactive 07/01/2014 [facility] Nitroglycerin 0.02 MG/MG Topical Ointment Notes: 1 gram is approximately 1 inch of nitroglycerin ointment (20 mg NTG per gram) (Same as:Nitro-Bid) Inactive 07/01/2014 [facility] hydrochlorothiazide 25 mg oral tablet Notes: (Same as: Hydrodiuril) With food. Inactive 07/01/2014 [facility] Norvasc Notes: (Same as: Norva sc) Inactive 07/01/2014 [facility] Benicar 20 mg, 1 tab, Route: P O, Drug form: TAB, ONCE, Start date: 07/01/14 7:12:00, Stop date: 07/01/14 7:12:00 Inactive 07/01/2014 [facility] metoprolol tartrate 25 mg, Rou te: PO, Drug form: TAB, ONCE, Dosing Weight 70.455, kg, Priority: STAT, Start date: 07/01/14 6:53:00, Stop date: 07/01/14 6:53:00 Inactive 07/01/2014 [facility] Amlodipine 5 MG / Hydrochlorothiazide 12 .5 MG / Olmesartan medoxomil 20 MG Oral Tablet [Tribenzor 20/5/12.5] 1 tab, Route: PO, Dosing Weight 70.455, kg, ONCE, Start date: 07/01/14 6:53:00, Stop date: 07/01/14 6:53:00 Inactive 07/01/2014 [facility] Hydralazine Hydrochloride 10 MG Oral Tablet 10 mg = 1 tab, PO, Q6H, # 40 tab, 0 Refill(s) Active 03/01/2014 [facility] Hydralazine Hydrochloride 10 MG Oral Tablet 25 mg, Route: PO, ONCE, Dosing Weight 67.273, kg, Start date: 02/28/14 20:54:00, Stop date: 02/28/14 20:54:00 Inactive 03/01/2014 [facility] Acetaminophen 325 MG / Hydrocodone Marly trate 5 MG Oral Tablet [[place] 5/325] 1-2 tab, PO, Q4-6H, Pain, # 30 tab, 0 Re fill(s) Active 03/01/2014 [facility] Penicillin V Potassium 500 MG Oral Tablet 500 mg = 1 tab, PO, Q6H, # 40 tab, 0 Refill(s) Active 03/01/2014 [facility] 2 ML penicillin G benzathine [id number] UNT/ ML Prefilled Syringe Route: IM, ONCE, Dosing Weight 67.273, k g, Start date: 02/28/14 20:33:00, Stop date: 02/28/14 20:33:00 Inactive 03/01/2014 [facility] Morphine 6 mg, Route: IM, Drug form: INJ, ONCE, Dosing Weight 67.273, kg, Priority: STAT, Start date: 02/28/14 20:32:00, Stop date: 02/28/14 20:32:00 Inactive 03/01/2014 [facility] Amlodipine 5 MG / Hydrochlorothiazide 12 .5 MG / Olmesartan medoxomil 20 MG Oral Tablet [Tribenzor 20/5/12.5] 0 Refill(s) Active 03/01/2014 [facility] Allergies, Adverse Reactions, Alerts Substance Category Reaction Severity Reaction type Status Date Reported Comments Source No Known Medication Allergies Assertion Drug aller gy [facility] Immunizations Immunization Date Given Site Status Last Updated Comments Source influenza virus vaccine, inactivated 03/26/2017 Left deltoid completed [place] [facility] influenza virus vaccine, inactivated 05/18/2016 Left deltoid completed [place] [facility] Results Order Name Results Value Reference Range Date Interpretation Comments Source DRUG SCREEN U Cannab Scr Posi tive *ABN* (01/28/19 9:34 AM) Negative 01/28/2019 [facility] DRUG SCREEN UDS Note See Note (01/28/19 9:34 AM) 01/28/2019 [facility] DRUG SCREEN U Opiate Scr Posi tive *ABN* (01/28/19 9:34 AM) Negative 01/28/2019 [facility] DRUG SCREEN U Phencyclidine Scr Nega tive *NA* (01/28/19 9:34 AM) Negative 01/28/2019 [facility] DRUG SCREEN U Candy Scr Nega tive *NA* (01/28/19 9:34 AM) Negative 01/28/2019 [facility] DRUG SCREEN U Cocaine Scr Nega tive *NA* (01/28/19 9:34 AM) Negative 01/28/2019 [facility] DRUG SCREEN U Benzodiaz Scr Nega tive *NA* (01/28/19 9:34 AM) Negative 01/28/2019 [facility] DRUG SCREEN U Amph Scr Nega tive *NA* (01/28/19 9:34 AM) Negative 01/28/2019 [facility] URINE AND STOOL UA Urobilinogen <=1.0 0.1 - 1.0 01/28/2019 [facility] URINE AND STOOL UA Color Yellow 01/28/2019 [facility] URINE AND STOOL UA Mucus Few /LPF None Seen /LPF 01/28/2019 [facility] URINE AND STOOL UA RBC 1 0 - 2 01/28/2019 [facility] URINE AND STOOL UA WBC 1 0 - 5 01/28/2019 [facility] URINE AND STOOL UA Bili Negative *NA* (01/28/19 9:34 AM) Negative 01/28/2019 [facility] URINE AND STOOL UA Nitrite Negative (01/28/19 9:34 AM) Negative 01/28/2019 [facility] URINE AND STOOL UA Blood Negative (01/28/19 9:34 AM) Negative 01/28/2019 [facility] URINE AND STOOL UA Ketones Negative mg/dL Negative mg/dL 01/28/2019 [facility] URINE AND STOOL UA Hyal Cast 5 0 - 2 01/28/2019 [facility] URINE AND STOOL UA Spec Grav 1.012 <=1.030 01/28/2019 [facility] URINE AND STOOL UA Protein Negative mg/dL Negative mg/dL 01/28/2019 [facility] URINE AND STOOL UA pH 5.0 5.0 - 8.0 01/28/2019 [facility] URINE AND STOOL UA Glucose Negative mg/dL Negative mg/dL 01/28/2019 [facility] URINE AND STOOL UA Leuk Est Negative (01/28/19 9:34 AM) Negative 01/28/2019 [facility] URINE AND STOOL UA Sq Epi Moderate /LPF Few /LPF 01/28/2019 [facility] URINE AND STOOL UA Turbidity Marked *ABN* (01/28/19 9:34 AM) Clear 01/28/2019 [facility] CARDIAC ENZYMES Troponin-I <0.02 0.00 - 0.40 01/28/2019 [facility] CHEM PANEL eGFR 118 01/28/2019 Result Comment: The eGFR is calculated using the CKD-EPI formula. In most young, healthy individuals the eGFR will be >90 mL/min/1.73m2. The eGFR declines with age. An eGFR of 60-89 may be normal in some populations, particularly the elderly, for whom the CKD-EPI formula has not been extensively validated. Use of the eGFR is not recommended in the following populations:

Individuals with unstable creatinine concentrations, including patients and those with serious co-morbid conditions.

Patients with extremes in muscle mass or diet.

The data above are obtained from the National Kidney Disease Education Program (NKDEP) which additionally recommends that when the eGFR is used in patients with extremes of body mass index for purposes of drug dosing, the eGFR should be multiplied by the estimated BMI. [facility] CHEM PANEL Potassium Lvl 3.0 3.5 - 5.1 01/28/2019 Result Comment: Critical Result(s) sonia mejia 01/28/2019 06:47 bytt. Read back OK. [facility] CHEM PANEL Sodium Lvl 146 135 - 145 01/28/2019 [facility] CHEM PANEL Creatinine Lvl 0.70 0.50 - 1.40 01/28/2019 [facility] CHEM PANEL BUN 12 7 - 22 01/28/2019 [facility] CHEM PANEL Glucose Lvl 94 70 - 99 01/28/2019 [facility] CHEM PANEL AGAP 10.0 10.0 - 20.0 01/28/2019 [facility] CHEM PANEL Calcium Lvl 8.5 8.5 - 10.5 01/28/2019 [facility] CHEM PANEL CO2 26 24 - 32 01/28/2019 [facility] CHEM PANEL Chloride Lvl 113 95 - 109 01/28/2019 [facility] CHEM PANEL Bili Indirect Unabl e to Calculate 0.0 - 1.0 01/28/2019 [facility] CHEM PANEL Bili Direct <0.1 0.0 - 0.3 01/28/2019 [facility] CHEM PANEL Alk Phos 50 39 - 136 01/28/2019 [facility] CHEM PANEL Bili Total 0.4 0.2 - 1.3 01/28/2019 [facility] CHEM PANEL AST 10 0 - 37 01/28/2019 [facility] CHEM PANEL ALT 12 0 - 65 01/28/2019 [facility] CHEM PANEL A/G Ratio 0.7 0.7 - 1.6 01/28/2019 [facility] CHEM PANEL Globulin 4.8 2.7 - 4.2 01/28/2019 [facility] CHEM PANEL Albumin Lvl 3.2 3.5 - 5.0 01/28/2019 [facility] CHEM PANEL Total Protein 8.0 6.4 - 8.4 01/28/2019 [facility] CHEM PANEL Magnesium Lvl 2.2 1.8 - 2.4 01/28/2019 [facility] CHEM PANEL Phosphorus 3.4 2.5 - 4.5 01/28/2019 [facility] HEMATOLOGY Hgb 12.2 12.0 - 16.0 01/28/2019 [facility] HEMATOLOGY MCV 102.5 80.0 - 98.0 01/28/2019 [facility] HEMATOLOGY RBC 3.40 4.20 - 5.40 01/28/2019 [facility] HEMATOLOGY Hct 34.8 36.0 - 48.0 01/28/2019 [facility] HEMATOLOGY WBC 7.7 3.7 - 10.4 01/28/2019 [facility] RDW 15.4 11.5 - 14.5 01/28/2019 [facility] MPV 7.9 7.4 - 10.4 01/28/2019 [facility] MCHC 35.0 32.0 - 36.0 01/28/2019 [facility] Platelet 243 133 - 450 01/28/2019 [facility] MCH 35.9 27.0 - 31.0 01/28/2019 [facility] Neutrophils # 3.6 1.5 - 8.1 01/28/2019 [facility] Monocytes # 0.5 0.0 - 0.8 01/28/2019 [facility] Eosinophils # 0.1 0.0 - 0.5 01/28/2019 [facility] Lymphocytes # 3.5 1.0 - 5.5 01/28/2019 [facility] Monocytes 6.5 2.0 - 12.0 01/28/2019 [facility] Lymphocytes 45.4 20.0 - 40.0 01/28/2019 [facility] Segs 46.1 45.0 - 75.0 01/28/2019 [facility] Basophils 0.3 0.0 - 1.0 01/28/2019 [facility] Eosinophils 1.7 0.0 - 4.0 01/28/2019 [facility] Macrocyte 1+ *ABN* (01/28/19 5:19 AM) None Seen 01/28/2019 [facility] LIPIDS CHD Risk 3.73 3.90 - 5.80 01/28/2019 [facility] LIPIDS VLDL 16 01/28/2019 [facility] LIPIDS LDL (Calculated) 104 <=99 mg/dL 01/28/2019 [facility] LIPIDS HDL 44 >=61 mg/dL 01/28/2019 [facility] LIPIDS Chol 164 <=199 mg/dL 01/28/2019 [facility] LIPIDS Trig 78 <=149 mg/dL 01/28/2019 [facility] CARDIAC ENZYMES Troponin-I 0.02 0.00 - 0.40 01/28/2019 [facility] CARDIAC ENZYMES Total CK 109 12 - 191 01/28/2019 [facility] CARDIAC ENZYMES Troponin-I 0.03 0.00 - 0.40 01/28/2019 [facility] CHEM PANEL eGFR 100 01/28/2019 Result Comment: The eGFR is calculated using the CKD-EPI formula. In most young, healthy individuals the eGFR will be >90 mL/min/1.73m2. The eGFR declines with age. An eGFR of 60-89 may be normal in some populations, particularly the elderly, for whom the CKD-EPI formula has not been extensively validated. Use of the eGFR is not recommended in the following populations:

Individuals with unstable creatinine concentrations, including patients and those with serious co-morbid conditions.

Patients with extremes in muscle mass or diet.

The data above are obtained from the National Kidney Disease Education Program (NKDEP) which additionally recommends that when the eGFR is used in patients with extremes of body mass index for purposes of drug dosing, the eGFR should be multiplied by the estimated BMI. [facility] CHEM PANEL BUN 14 7 - 22 01/28/2019 [facility] CHEM PANEL Glucose Lvl 104 70 - 99 01/28/2019 [facility] CHEM PANEL Sodium Lvl 146 135 - 145 01/28/2019 [facility] CHEM PANEL Creatinine Lvl 0.80 0.50 - 1.40 01/28/2019 [facility] CHEM PANEL Potassium Lvl 3.3 3.5 - 5.1 01/28/2019 [facility] CHEM PANEL Chloride Lvl 111 95 - 109 01/28/2019 [facility] CHEM PANEL CO2 29 24 - 32 01/28/2019 [facility] CHEM PANEL Calcium Lvl 9.0 8.5 - 10.5 01/28/2019 [facility] CHEM PANEL Total Protein 8.4 6.4 - 8.4 01/28/2019 [facility] CHEM PANEL ALT 17 0 - 65 01/28/2019 [facility] CHEM PANEL Albumin Lvl 3.3 3.5 - 5.0 01/28/2019 [facility] CHEM PANEL AST 19 0 - 37 01/28/2019 [facility] CHEM PANEL Bili Total 0.4 0.2 - 1.3 01/28/2019 [facility] CHEM PANEL Alk Phos 54 39 - 136 01/28/2019 [facility] CHEM PANEL AGAP 9.3 10.0 - 20.0 01/28/2019 [facility] CHEM PANEL Globulin 5.1 2.7 - 4.2 01/28/2019 [facility] CHEM PANEL A/G Ratio 0.6 0.7 - 1.6 01/28/2019 [facility] CHEM PANEL B/C Ratio 18 6 - 25 01/28/2019 [facility] Lymphocytes # 1.7 1.0 - 5.5 01/28/2019 [facility] Neutrophils # 6.4 1.5 - 8.1 01/28/2019 [facility] Eosinophils # 0.1 0.0 - 0.5 01/28/2019 [facility] Monocytes # 0.4 0.0 - 0.8 01/28/2019 [facility] Basophils # 0.1 0.0 - 0.2 01/28/2019 [facility] Monocytes 5.2 2.0 - 12.0 01/28/2019 [facility] Lymphocytes 19.5 20.0 - 40.0 01/28/2019 [facility] Segs 73.9 45.0 - 75.0 01/28/2019 [facility] Eosinophils 0.7 0.0 - 4.0 01/28/2019 [facility] Basophils 0.7 0.0 - 1.0 01/28/2019 [facility] MPV 8.0 7.4 - 10.4 01/28/2019 [facility] MCHC 33.8 32.0 - 36.0 01/28/2019 [facility] MCV 102.4 80.0 - 98.0 01/28/2019 [facility] MCH 34.6 27.0 - 31.0 01/28/2019 [facility] Platelet 277 133 - 450 01/28/2019 [facility] RDW 15.1 11.5 - 14.5 01/28/2019 [facility] Hgb 12.8 12.0 - 16.0 01/28/2019 [facility] WBC 8.7 3.7 - 10.4 01/28/2019 [facility] Hct 37.8 36.0 - 48.0 01/28/2019 [facility] RBC 3.69 4.20 - 5.40 01/28/2019 [facility] TOXICOLOGY Ethanol Lvl <3 01/28/2019 [facility] TOXICOLOGY Etoh (%) <0.003 01/28/2019 [facility] TOXICOLOGY Salicylate Lvl 7.0 0.0 - 30.0 01/28/2019 [facility] TOXICOLOGY Acetaminoph Lvl <2 (8/5/19 8:20 PM) 10 - 20 01/28/2019 [facility] CARDIAC ENZYMES Troponin-I <0.02 0.00 - 0.40 03/26/2017 [facility] CARDIAC ENZYMES Total CK 39 12 - 191 03/26/2017 [facility] CARDIAC ENZYMES Troponin-I <0.02 0.00 - 0.40 03/26/2017 [facility] CARDIAC ENZYMES Total CK 46 12 - 191 03/26/2017 [facility] CARDIAC ENZYMES CK MB <1.0 0.5 - 3.6 03/26/2017 [facility] CARDIAC ENZYMES Troponin-I <0.02 0.00 - 0.40 03/26/2017 [facility] CARDIAC ENZYMES BNP 9 <=100 pg/mL 03/26/2017 [facility] CARDIAC ENZYMES Total CK 54 12 - 191 03/26/2017 [facility] CARDIAC ENZYMES CK MB Index <1.9 0.0 - 2.5 03/26/2017 [facility] ELECTROLYTES Sodium Lvl 142 135 - 145 03/26/2017 [facility] ELECTR[facility]YTES Creatinine Lvl 1.2 0 0.50 - 1.40 03/26/2017 [facility] ELECTROLYTES BUN 16 7 - 22 03/26/2017 [facility]LECT[facility] Glucose Lvl 103 70 - 99 03/26/2017 [facility] ELECTROLYTES CO2 24 24 - 32 03/26/2017 [facility]LECT[facility] Chloride Lvl 110 95 - 109 03/26/2017 [facility] Potassium Lvl 3.3 3.5 - 5.1 03/26/2017 [facility] ELECT[facility] Alk Phos 44 39 - 136 03/26/2017 [facility]LECT[facility] AST 13 0 - 37 03/26/2017 [facility] ALT 12 0 - 65 03/26/2017 [facility]LECT[facility] Albumin Lvl 3.9 3.5 - 5.0 03/26/2017 [facility] ELECTR[facility] Total Protein 8.5 6.4 - 8.4 03/26/2017 [facility] Calcium Lvl 9.0 8.5 - 10.5 03/26/2017 [facility]LECT[facility] Bili Total 0.3 0.2 - 1.3 03/26/2017 [facility] ELECTR[facility] AGAP 11.3 10.0 - 20.0 03/26/2017 [facility] B/C Ratio 13 6 - 25 03/26/2017 [facility] Globulin 4.6 2.7 - 4.2 03/26/2017 [facility] ELECTR[facility] A/G Ratio 0.8 0.7 - 1.6 03/26/2017 [facility] ELECTROLYTES eGFR 62 03/26/2017 Result Comment: The eGFR is calculated using the CKD-EPI formula. In most young, healthy individuals the eGFR will be >90 mL/min/1.73m2. The eGFR declines with age. An eGFR of 60-89 may be normal in some populations, particularly the elderly, for whom the CKD-EPI formula has not been extensively validated. Use of the eGFR is not recommended in the following populations:

Individuals with unstable creatinine concentrations, including patients and those with serious co-morbid conditions.

Patients with extremes in muscle mass or diet.

The data above are obtained from the National Kidney Disease Education Program (NKDEP) which additionally recommends that when the eGFR is used in patients with extremes of body mass index for purposes of drug dosing, the eGFR should be multiplied by the estimated BMI. [facility] WBC 8.7 3.7 - 10.4 03/26/2017 [facility] RBC 3.78 4.20 - 5.40 03/26/2017 [facility] Hgb 14.1 12.0 - 16.0 03/26/2017 [facility] Hct 39.7 36.0 - 48.0 03/26/2017 [facility] MCHC 35.5 32.0 - 36.0 03/26/2017 [facility] MCH 37.2 27.0 - 31.0 03/26/2017 [facility] MCV 104.9 80.0 - 98.0 03/26/2017 [facility] RDW 14.4 11.5 - 14.5 03/26/2017 [facility] Platelet 256 133 - 450 03/26/2017 [facility] HEMATOLOGY MPV 8.7 7.4 - 10.4 03/26/2017 [facility] Segs 53.4 45.0 - 75.0 03/26/2017 [facility] Monocytes # 0.7 0.0 - 0.8 03/26/2017 [facility] Monocytes 7.7 2.0 - 12.0 03/26/2017 [facility] Segs-Bands # 4.7 1.5 - 8.1 03/26/2017 [facility] HEMATOLOGY Eosinophils 2.9 0.0 - 4.0 03/26/2017 [facility] Lymphocytes # 3.1 1.0 - 5.5 03/26/2017 [facility] HEMATOLOGY Basophils 0.3 0.0 - 1.0 03/26/2017 [facility] HEMATOLOGY Macrocyte 2+ *ABN* (03/26/17 1:41 AM) None Seen 03/26/2017 [facility] HEMATOLOGY Eosinophils # 0.3 0.0 - 0.5 03/26/2017 [facility] HEMATOLOGY Lymphocytes 35.7 20.0 - 40.0 03/26/2017 [facility] DRUG SCREEN U Cocaine Scr Nega tive *NA* (11/26/16 6:13 AM) Negative 11/26/2016 [facility] DRUG SCREEN U Cannab Scr Posi tive *ABN* (11/26/16 6:13 AM) Negative 11/26/2016 [facility] DRUG SCREEN U Opiate Scr Posi tive *ABN* (11/26/16 6:13 AM) Negative 11/26/2016 [facility] DRUG SCREEN U Phencyc Scr Nega tive *NA* (11/26/16 6:13 AM) Negative 11/26/2016 [facility] DRUG SCREEN UDS Note See Note (11/26/16 6:13 AM) 11/26/2016 [facility] DRUG SCREEN U Amph Scr Nega tive *NA* (11/26/16 6:13 AM) Negative 11/26/2016 [facility] DRUG SCREEN U Candy Scr Nega tive *NA* (11/26/16 6:13 AM) Negative 11/26/2016 [facility] DRUG SCREEN U Benzodia Scr Nega tive *NA* (11/26/16 6:13 AM) Negative 11/26/2016 [facility] CARDIAC ENZYMES Total CK 34 12 - 191 11/26/2016 [facility] CARDIAC ENZYMES Troponin-I <0.02 0.00 - 0.40 11/26/2016 [facility] LIPIDS Trig 52 <=149 mg/dL 11/26/2016 [facility] LIPIDS Chol 154 <=199 mg/dL 11/26/2016 [facility] LIPIDS CHD Risk 3.35 3.90 - 5.80 11/26/2016 [facility] LIPIDS LDL (Calculated) 98 <=99 mg/dL 11/26/2016 [facility] LIPIDS HDL 46 >=61 mg/dL 11/26/2016 [facility] LIPIDS VLDL 10 11/26/2016 [facility] CARDIAC ENZYMES Total CK 41 12 - 191 11/25/2016 [facility] CARDIAC ENZYMES Troponin-I <0.02 0.00 - 0.40 11/25/2016 [facility] HEMATOLOGY D-Dimer <0.27 11/25/2016 [facility] CARDIAC ENZYMES Total CK 46 12 - 191 11/25/2016 [facility] CARDIAC ENZYMES Troponin-I <0.02 0.00 - 0.40 11/25/2016 [facility] CHEM PANEL eGFR 90 11/25/2016 Result Comment: The eGFR is calculated using the CKD-EPI formula. In most young, healthy individuals the eGFR will be >90 mL/min/1.73m2. The eGFR declines with age. An eGFR of 60-89 may be normal in some populations, particularly the elderly, for whom the CKD-EPI formula has not been extensively validated. Use of the eGFR is not recommended in the following populations:

Individuals with unstable creatinine concentrations, including patients and those with serious co-morbid conditions.

Patients with extremes in muscle mass or diet.

The data above are obtained from the National Kidney Disease Education Program (NKDEP) which additionally recommends that when the eGFR is used in patients with extremes of body mass index for purposes of drug dosing, the eGFR should be multiplied by the estimated BMI. [facility] CHEM PANEL Sodium Lvl 142 135 - 145 11/25/2016 [facility] CHEM PANEL Potassium Lvl 4.3 3.5 - 5.1 11/25/2016 [facility] CHEM PANEL BUN 15 7 - 22 11/25/2016 [facility] CHEM PANEL Creatinine Lvl 0.79 0.50 - 1.40 11/25/2016 [facility] CHEM PANEL Glucose Lvl 78 70 - 99 11/25/2016 [facility] CHEM PANEL Bili Total 0.5 0.2 - 1.3 11/25/2016 [facility] CHEM PANEL ALT 13 0 - 65 11/25/2016 [facility] CHEM PANEL AST 12 0 - 37 11/25/2016 [facility] CHEM PANEL Alk Phos 31 39 - 136 11/25/2016 [facility] CHEM PANEL Albumin Lvl 3.5 3.5 - 5.0 11/25/2016 [facility] CHEM PANEL Calcium Lvl 8.5 8.5 - 10.5 11/25/2016 [facility] CHEM PANEL Total Protein 7.2 6.4 - 8.4 11/25/2016 [facility] CHEM PANEL Chloride Lvl 109 95 - 109 11/25/2016 [facility] CHEM PANEL CO2 27 24 - 32 11/25/2016 [facility] CHEM PANEL Globulin 3.7 2.7 - 4.2 11/25/2016 [facility] CHEM PANEL A/G Ratio 0.9 0.7 - 1.6 11/25/2016 [facility] CHEM PANEL B/C Ratio 19 6 - 25 11/25/2016 [facility] CHEM PANEL AGAP 10.3 10.0 - 20.0 11/25/2016 [facility] HEMATOLOGY Eosinophils # 0.1 0.0 - 0.5 11/25/2016 [facility] HEMATOLOGY Monocytes # 0.5 0.0 - 0.8 11/25/2016 [facility] HEMATOLOGY Macrocyte 2+ *ABN* (11/25/16 6:27 AM) None Seen 11/25/2016 [facility] HEMATOLOGY Eosinophils 1.8 0.0 - 4.0 11/25/2016 [facility] Monocytes 8.9 2.0 - 12.0 11/25/2016 [facility] HEMATOLOGY Lymphocytes 39.6 20.0 - 40.0 11/25/2016 [facility] Segs-Bands # 2.7 1.5 - 8.1 11/25/2016 [facility] HEMATOLOGY Basophils 0.3 0.0 - 1.0 11/25/2016 [facility] Lymphocytes # 2.2 1.0 - 5.5 11/25/2016 [facility] HEMATOLOGY Segs 49.4 45.0 - 75.0 11/25/2016 [facility] Platelet 192 133 - 450 11/25/2016 [facility] HEMATOLOGY MPV 8.6 7.4 - 10.4 11/25/2016 [facility] HEMATOLOGY Hct 31.0 36.0 - 48.0 11/25/2016 [facility] HEMATOLOGY Hgb 11.2 12.0 - 16.0 11/25/2016 [facility] HEMATOLOGY MCV 105.3 80.0 - 98.0 11/25/2016 [facility] HEMATOLOGY RDW 12.9 11.5 - 14.5 11/25/2016 [facility] HEMATOLOGY MCHC 36.0 32.0 - 36.0 11/25/2016 [facility] MCH 37.9 27.0 - 31.0 11/25/2016 [facility] HEMATOLOGY RBC 2.94 4.20 - 5.40 11/25/2016 [facility] HEMATOLOGY WBC 5.4 3.7 - 10.4 11/25/2016 [facility] CARDIAC ENZYMES Troponin-I <0.02 0.00 - 0.40 09/19/2016 [facility] CHEM PANEL eGFR 115 09/19/2016 Result Comment: The eGFR is calculated using the CKD-EPI formula. In most young, healthy individuals the eGFR will be >90 mL/min/1.73m2. The eGFR declines with age. An eGFR of 60-89 may be normal in some populations, particularly the elderly, for whom the CKD-EPI formula has not been extensively validated. Use of the eGFR is not recommended in the following populations:

Individuals with unstable creatinine concentrations, including patients and those with serious co-morbid conditions.

Patients with extremes in muscle mass or diet.

The data above are obtained from the National Kidney Disease Education Program (NKDEP) which additionally recommends that when the eGFR is used in patients with extremes of body mass index for purposes of drug dosing, the eGFR should be multiplied by the estimated BMI. [facility] CHEM PANEL AGAP 11.6 10.0 - 20.0 09/19/2016 [facility] CHEM PANEL Chloride Lvl 113 95 - 109 09/19/2016 [facility] CHEM PANEL CO2 25 24 - 32 09/19/2016 [facility] CHEM PANEL Potassium Lvl 3.6 3.5 - 5.1 09/19/2016 [facility] CHEM PANEL Sodium Lvl 146 135 - 145 09/19/2016 [facility] CHEM PANEL Creatinine Lvl 0.52 0.50 - 1.40 09/19/2016 [facility] CHEM PANEL Calcium Lvl 8.0 8.5 - 10.5 09/19/2016 [facility] CHEM PANEL BUN 14 7 - 22 09/19/2016 [facility] CHEM PANEL Glucose Lvl 87 70 - 99 09/19/2016 [facility] HEMATOLOGY Macrocyte 2+ *ABN* (09/19/16 4:08 AM) None Seen 09/19/2016 [facility] HEMATOLOGY Eosinophils # 0.1 0.0 - 0.5 09/19/2016 [facility] HEMATOLOGY Lymphocytes # 2.9 1.0 - 5.5 09/19/2016 [facility] HEMATOLOGY Monocytes # 0.5 0.0 - 0.8 09/19/2016 [facility] HEMATOLOGY Eosinophils 1.9 0.0 - 4.0 09/19/2016 [facility] HEMATOLOGY Basophils 0.2 0.0 - 1.0 09/19/2016 [facility] HEMATOLOGY Segs-Bands # 2.9 1.5 - 8.1 09/19/2016 [facility] HEMATOLOGY Segs 44.8 45.0 - 75.0 09/19/2016 [facility] HEMATOLOGY Lymphocytes 45.4 20.0 - 40.0 09/19/2016 [facility] HEMATOLOGY Monocytes 7.7 2.0 - 12.0 09/19/2016 [facility] HEMATOLOGY MPV 8.3 7.4 - 10.4 09/19/2016 [facility] HEMATOLOGY MCV 104.7 80.0 - 98.0 09/19/2016 [facility] HEMATOLOGY MCH 36.1 27.0 - 31.0 09/19/2016 [facility] HEMATOLOGY WBC 6.4 3.7 - 10.4 09/19/2016 [facility] MCHC 34.5 32.0 - 36.0 09/19/2016 [facility] HEMATOLOGY RDW 13.3 11.5 - 14.5 09/19/2016 [facility] HEMATOLOGY Platelet 189 133 - 450 09/19/2016 [facility] RBC 3.30 4.20 - 5.40 09/19/2016 [facility] HEMATOLOGY Hct 34.6 36.0 - 48.0 09/19/2016 [facility] HEMATOLOGY Hgb 11.9 12.0 - 16.0 09/19/2016 [facility] HEMATOLOGY Sed Rate 34 0 - 20 09/19/2016 [facility] LIPIDS CHD Risk 4.14 3.90 - 5.80 09/19/2016 [facility] LIPIDS HDL 35 >=61 mg/dL 09/19/2016 [facility] LIPIDS Trig 106 <=149 mg/dL 09/19/2016 [facility] LIPIDS Chol 145 <=199 mg/dL 09/19/2016 [facility] LIPIDS VLDL 21 09/19/2016 [facility] LIPIDS LDL (Calculated) 89 <=99 mg/dL 09/19/2016 [facility] SPECIAL CHEMISTRY Hgb A1C 4.9 <=5.6 % 09/19/2016 [facility] DRUG SCREEN UDS Note See Note (09/18/16 7:54 PM) 09/19/2016 [facility] DRUG SCREEN U Cannab Scr Posi tive *ABN* (09/18/16 7:54 PM) Negative 09/19/2016 [facility] DRUG SCREEN U Cocaine Scr Nega tive *NA* (09/18/16 7:54 PM) Negative 09/19/2016 [facility] DRUG SCREEN U Benzodia Scr Nega tive *NA* (09/18/16 7:54 PM) Negative 09/19/2016 [facility] DRUG SCREEN U Phencyc Scr Nega tive *NA* (09/18/16 7:54 PM) Negative 09/19/2016 [facility] DRUG SCREEN U Opiate Scr Nega tive *NA* (09/18/16 7:54 PM) Negative 09/19/2016 [facility] DRUG SCREEN U Candy Scr Nega tive *NA* (09/18/16 7:54 PM) Negative 09/19/2016 [facility] DRUG SCREEN U Amph Scr Nega tive *NA* (09/18/16 7:54 PM) Negative 09/19/2016 [facility] URINE AND STOOL UA Leuk Est Negative (09/18/16 7:54 PM) Negative 09/19/2016 [facility] URINE AND STOOL UA Bili Negative *NA* (09/18/16 7:54 PM) Negative 09/19/2016 [facility] URINE AND STOOL UA Blood Negative (09/18/16 7:54 PM) Negative 09/19/2016 [facility] URINE AND STOOL UA Urobilinogen 0.2 0.1 - 1.0 09/19/2016 [facility] URINE AND STOOL UA Nitrite Negative (09/18/16 7:54 PM) Negative 09/19/2016 [facility] URINE AND STOOL UA Spec Grav 1.010 <=1.030 09/19/2016 [facility] URINE AND STOOL UA pH 6.0 5.0 - 8.0 09/19/2016 [facility] URINE AND STOOL UA Protein Negative mg/dL Negative mg/dL 09/19/2016 [facility] URINE AND STOOL UA Glucose Negative mg/dL Negative mg/dL 09/19/2016 [facility] URINE AND STOOL UA Ketones Negative mg/dL Negative mg/dL 09/19/2016 [facility] URINE AND STOOL UA Color Yellow *NA* (09/18/16 7:54 PM) Yellow 09/19/2016 [facility] URINE AND STOOL UA Turbidity Clear (09/18/16 7:54 PM) Clear 09/19/2016 [facility] URINE AND STOOL UA Sq Epi Few /LPF Few /LPF 09/19/2016 [facility] URINE AND STOOL UA WBC 0-2 /HPF None Seen /HPF 09/19/2016 [facility] URINE AND STOOL UA Bacteria Occasional /HPF None Seen /HPF 09/19/2016 [facility] URINE AND STOOL UA RBC 0-2 /HPF 0 - 2 09/19/2016 [facility] URINE AND STOOL UA Mucus Few /LPF None Seen /LPF 09/19/2016 [facility] URINE CHEM U Preg Negat dyan (09/18/16 7:54 PM) Negative 09/19/2016 [facility] CARDIAC ENZYMES Troponin-I <0.02 0.00 - 0.40 09/19/2016 [facility] CARDIAC ENZYMES CK MB <1.0 0.5 - 3.6 09/19/2016 [facility] CARDIAC ENZYMES Total CK 45 12 - 191 09/19/2016 [facility] CARDIAC ENZYMES BNP 34 <=100 pg/mL 09/19/2016 [facility] CARDIAC ENZYMES CK MB Index <2.2 0.0 - 2.5 09/19/2016 [facility] CHEM PANEL Magnesium Lvl 1.8 1.8 - 2.4 09/19/2016 [facility] CHEM PANEL eGFR 104 09/19/2016 Result Comment: The eGFR is calculated using the CKD-EPI formula. In most young, healthy individuals the eGFR will be >90 mL/min/1.73m2. The eGFR declines with age. An eGFR of 60-89 may be normal in some populations, particularly the elderly, for whom the CKD-EPI formula has not been extensively validated. Use of the eGFR is not recommended in the following populations:

Individuals with unstable creatinine concentrations, including patients and those with serious co-morbid conditions.

Patients with extremes in muscle mass or diet.

The data above are obtained from the National Kidney Disease Education Program (NKDEP) which additionally recommends that when the eGFR is used in patients with extremes of body mass index for purposes of drug dosing, the eGFR should be multiplied by the estimated BMI. [facility] CHEM PANEL Globulin 3.7 2.7 - 4.2 09/19/2016 [facility] CHEM PANEL Potassium Lvl 3.0 3.5 - 5.1 09/19/2016 Result Comment: Critical Result(s) fisher d to Radha Rodriguez RN at 09/18/2016 20:28 by KRISTEN. Read back OK. [facility] CHEM PANEL Sodium Lvl 144 135 - 145 09/19/2016 [facility] CHEM PANEL CO2 28 24 - 32 09/19/2016 [facility] CHEM PANEL A/G Ratio 0.8 0.7 - 1.6 09/19/2016 [facility] CHEM PANEL Chloride Lvl 109 95 - 109 09/19/2016 [facility] CHEM PANEL Total Protein 6.7 6.4 - 8.4 09/19/2016 [facility] CHEM PANEL B/C Ratio 17 6 - 25 09/19/2016 [facility] CHEM PANEL Calcium Lvl 8.2 8.5 - 10.5 09/19/2016 [facility] CHEM PANEL Albumin Lvl 3.0 3.5 - 5.0 09/19/2016 [facility] CHEM PANEL ALT 11 0 - 65 09/19/2016 [facility] CHEM PANEL AGAP 10.0 10.0 - 20.0 09/19/2016 [facility] CHEM PANEL AST 6 0 - 37 09/19/2016 [facility] CHEM PANEL Bili Total 0.1 0.2 - 1.3 09/19/2016 [facility] CHEM PANEL Alk Phos 39 39 - 136 09/19/2016 [facility] CHEM PANEL Creatinine Lvl 0.70 0.50 - 1.40 09/19/2016 [facility] CHEM PANEL BUN 12 7 - 22 09/19/2016 [facility] CHEM PANEL Glucose Lvl 93 70 - 99 09/19/2016 [facility] CHEM PANEL Lipase Lvl 193 73 - 393 09/19/2016 [facility] HEMATOLOGY PTT 28.6 22.9 - 35.8 09/19/2016 [facility] HEMATOLOGY MPV 8.3 7.4 - 10.4 09/19/2016 [facility] HEMATOLOGY MCHC 34.8 32.0 - 36.0 09/19/2016 [facility] HEMATOLOGY Platelet 193 133 - 450 09/19/2016 [facility] HEMATOLOGY RDW 13.2 11.5 - 14.5 09/19/2016 [facility] HEMATOLOGY MCH 36.2 27.0 - 31.0 09/19/2016 [facility] HEMATOLOGY MCV 104.0 80.0 - 98.0 09/19/2016 [facility] HEMATOLOGY WBC 7.1 3.7 - 10.4 09/19/2016 [facility] HEMATOLOGY RBC 3.23 4.20 - 5.40 09/19/2016 [facility] HEMATOLOGY Hgb 11.7 12.0 - 16.0 09/19/2016 [facility] HEMATOLOGY Hct 33.6 36.0 - 48.0 09/19/2016 [facility] HEMATOLOGY PT 13.8 12.0 - 14.7 09/19/2016 [facility] HEMATOLOGY INR 1.04 0.85 - 1.17 09/19/2016 [facility] HEMATOLOGY Macrocyte 1+ *ABN* (09/18/16 7:46 PM) None Seen 09/19/2016 [facility] HEMATOLOGY Lymphocytes 48.8 20.0 - 40.0 09/19/2016 [facility] HEMATOLOGY Segs 42.4 45.0 - 75.0 09/19/2016 [facility] HEMATOLOGY Eosinophils 1.5 0.0 - 4.0 09/19/2016 [facility] HEMATOLOGY Monocytes 7.1 2.0 - 12.0 09/19/2016 [facility] HEMATOLOGY Monocytes # 0.5 0.0 - 0.8 09/19/2016 [facility] HEMATOLOGY Lymphocytes # 3.5 1.0 - 5.5 09/19/2016 [facility] HEMATOLOGY Segs-Bands # 3.0 1.5 - 8.1 09/19/2016 [facility] HEMATOLOGY Basophils 0.2 0.0 - 1.0 09/19/2016 [facility] HEMATOLOGY Eosinophils # 0.1 0.0 - 0.5 09/19/2016 [facility] CARDIAC ENZYMES Troponin-I <0.02 0.00 - 0.40 09/04/2016 [facility] CARDIAC ENZYMES Total CK 49 12 - 191 09/04/2016 [facility] CARDIAC ENZYMES CK MB Index <0.9 0.0 - 2.5 09/04/2016 [facility] CARDIAC ENZYMES CK MB <1.0 0.5 - 3.6 09/04/2016 [facility] CARDIAC ENZYMES Troponin-I <0.02 0.00 - 0.40 09/04/2016 [facility] CARDIAC ENZYMES Total CK 107 12 - 191 09/04/2016 [facility] CARDIAC ENZYMES Total CK 57 12 - 191 09/04/2016 [facility] CARDIAC ENZYMES CK MB <1.0 0.5 - 3.6 09/04/2016 [facility] CARDIAC ENZYMES Troponin-I <0.02 0.00 - 0.40 09/04/2016 [facility] CARDIAC ENZYMES CK MB Index <1.8 0.0 - 2.5 09/04/2016 [facility] CHEM PANEL eGFR 115 09/04/2016 Result Comment: The eGFR is calculated using the CKD-EPI formula. In most young, healthy individuals the eGFR will be >90 mL/min/1.73m2. The eGFR declines with age. An eGFR of 60-89 may be normal in some populations, particularly the elderly, for whom the CKD-EPI formula has not been extensively validated. Use of the eGFR is not recommended in the following populations:

Individuals with unstable creatinine concentrations, including patients and those with serious co-morbid conditions.

Patients with extremes in muscle mass or diet.

The data above are obtained from the National Kidney Disease Education Program (NKDEP) which additionally recommends that when the eGFR is used in patients with extremes of body mass index for purposes of drug dosing, the eGFR should be multiplied by the estimated BMI. [facility] CHEM PANEL BUN 10 7 - 22 09/04/2016 [facility] CHEM PANEL Glucose Lvl 91 70 - 99 09/04/2016 [facility] CHEM PANEL Sodium Lvl 143 135 - 145 09/04/2016 [facility] CHEM PANEL Creatinine Lvl 0.52 0.50 - 1.40 09/04/2016 [facility] CHEM PANEL A/G Ratio 0.8 0.7 - 1.6 09/04/2016 [facility] CHEM PANEL Globulin 4.2 2.7 - 4.2 09/04/2016 [facility] CHEM PANEL B/C Ratio 19 6 - 25 09/04/2016 [facility] CHEM PANEL AST 8 0 - 37 09/04/2016 [facility] CHEM PANEL AGAP 11.4 10.0 - 20.0 09/04/2016 [facility] CHEM PANEL Bili Total 0.2 0.2 - 1.3 09/04/2016 [facility] CHEM PANEL Albumin Lvl 3.4 3.5 - 5.0 09/04/2016 [facility] CHEM PANEL ALT 8 0 - 65 09/04/2016 [facility] CHEM PANEL Alk Phos 36 39 - 136 09/04/2016 [facility] CHEM PANEL Chloride Lvl 112 95 - 109 09/04/2016 [facility] CHEM PANEL Potassium Lvl 3.4 3.5 - 5.1 09/04/2016 [facility] CHEM PANEL CO2 23 24 - 32 09/04/2016 [facility] CHEM PANEL Total Protein 7.6 6.4 - 8.4 09/04/2016 [facility] CHEM PANEL Calcium Lvl 8.5 8.5 - 10.5 09/04/2016 [facility] ENDOCRINOLOGY S Preg Ne gative *NA* (09/04/16 5:53 AM) Negative 09/04/2016 [facility] CARDIAC ENZYMES BNP 40 <=100 pg/mL 09/04/2016 [facility] HEMATOLOGY Platelet 191 133 - 450 09/04/2016 [facility] MPV 8.3 7.4 - 10.4 09/04/2016 [facility] RBC 3.61 4.20 - 5.40 09/04/2016 [facility] MCV 105.0 80.0 - 98.0 09/04/2016 [facility] MCH 36.3 27.0 - 31.0 09/04/2016 [facility] Hct 37.9 36.0 - 48.0 09/04/2016 [facility] MCHC 34.6 32.0 - 36.0 09/04/2016 [facility] RDW 13.2 11.5 - 14.5 09/04/2016 [facility] Hgb 13.1 12.0 - 16.0 09/04/2016 [facility] WBC 7.1 3.7 - 10.4 09/04/2016 [facility] Segs-Bands # 3.1 1.5 - 8.1 09/04/2016 [facility] Eosinophils 2.8 0.0 - 4.0 09/04/2016 [facility] Lymphocytes # 3.2 1.0 - 5.5 09/04/2016 [facility] Basophils 0.4 0.0 - 1.0 09/04/2016 [facility] Monocytes # 0.5 0.0 - 0.8 09/04/2016 [facility] Macrocyte 2+ *ABN* (09/04/16 4:29 AM) None Seen 09/04/2016 [facility] Eosinophils # 0.2 0.0 - 0.5 09/04/2016 [facility] Segs 44.0 45.0 - 75.0 09/04/2016 [facility] Lymphocytes 45.3 20.0 - 40.0 09/04/2016 [facility] Monocytes 7.5 2.0 - 12.0 09/04/2016 [facility] CHEM PANEL Magnesium Lvl 2.0 1.8 - 2.4 05/17/2016 [facility] CHEM PANEL eGFR 99 05/17/2016 Result Comment: The eGFR is calculated using the CKD-EPI formula. In most young, healthy individuals the eGFR will be >90 mL/min/1.73m2. The eGFR declines with age. An eGFR of 60-89 may be normal in some populations, particularly the elderly, for whom the CKD-EPI formula has not been extensively validated. Use of the eGFR is not recommended in the following populations:

Individuals with unstable creatinine concentrations, including patients and those with serious co-morbid conditions.

Patients with extremes in muscle mass or diet.

The data above are obtained from the National Kidney Disease Education Program (NKDEP) which additionally recommends that when the eGFR is used in patients with extremes of body mass index for purposes of drug dosing, the eGFR should be multiplied by the estimated BMI. [facility] CHEM PANEL CO2 24 24 - 32 05/17/2016 [facility] CHEM PANEL Calcium Lvl 9.2 8.5 - 10.5 05/17/2016 [facility] CHEM PANEL AGAP 15.7 10.0 - 20.0 05/17/2016 [facility] CHEM PANEL Creatinine Lvl 0.82 0.50 - 1.40 05/17/2016 [facility] CHEM PANEL Sodium Lvl 145 135 - 145 05/17/2016 [facility] CHEM PANEL Potassium Lvl 3.7 3.5 - 5.1 05/17/2016 [facility] CHEM PANEL BUN 10 7 - 22 05/17/2016 [facility] CHEM PANEL Glucose Lvl 125 70 - 99 05/17/2016 [facility] CHEM PANEL Chloride Lvl 109 95 - 109 05/17/2016 [facility] VIRAL - SEROLOGY Influ B Negative (05/16/16 11:02 PM) Negative 05/17/2016 [facility] VIRAL - SEROLOGY Influ A Negative (05/16/16 11:02 PM) Negative 05/17/2016 [facility] CARDIAC ENZYMES Total CK 47 12 - 191 05/16/2016 [facility] CARDIAC ENZYMES Troponin-I <0.02 0.00 - 0.40 05/16/2016 [facility] CARDIAC ENZYMES Troponin-I <0.02 0.00 - 0.40 05/16/2016 [facility] CARDIAC ENZYMES Total CK 43 12 - 191 05/16/2016 [facility] CHEM PANEL Lactic Acid Lvl 1.8 0.5 - 2.2 05/16/2016 [facility] CARDIAC ENZYMES Troponin-I <0.02 0.00 - 0.40 05/16/2016 [facility] CARDIAC ENZYMES Total CK 51 12 - 191 05/16/2016 [facility] CARDIAC ENZYMES CK MB <0.5 0.5 - 3.6 05/16/2016 [facility] CARDIAC ENZYMES CK MB Index <1.0 0.0 - 2.5 05/16/2016 [facility] CHEM PANEL Alk Phos 38 39 - 136 05/16/2016 [facility] CHEM PANEL eGFR 125 05/16/2016 Result Comment: The eGFR is calculated using the CKD-EPI formula. In most young, healthy individuals the eGFR will be >90 mL/min/1.73m2. The eGFR declines with age. An eGFR of 60-89 may be normal in some populations, particularly the elderly, for whom the CKD-EPI formula has not been extensively validated. Use of the eGFR is not recommended in the following populations:

Individuals with unstable creatinine concentrations, including patients and those with serious co-morbid conditions.

Patients with extremes in muscle mass or diet.

The data above are obtained from the National Kidney Disease Education Program (NKDEP) which additionally recommends that when the eGFR is used in patients with extremes of body mass index for purposes of drug dosing, the eGFR should be multiplied by the estimated BMI. [facility] CHEM PANEL Glucose Lvl 130 70 - 99 05/16/2016 [facility] CHEM PANEL BUN 6 7 - 22 05/16/2016 [facility] CHEM PANEL Bili Total 0.4 0.2 - 1.3 05/16/2016 [facility] CHEM PANEL ALT 10 0 - 65 05/16/2016 [facility] CHEM PANEL AST 9 0 - 37 05/16/2016 [facility] CHEM PANEL Globulin 4.8 2.7 - 4.2 05/16/2016 [facility] CHEM PANEL A/G Ratio 0.7 0.7 - 1.6 05/16/2016 [facility] CHEM PANEL Albumin Lvl 3.5 3.5 - 5.0 05/16/2016 [facility] CHEM PANEL Calcium Lvl 8.7 8.5 - 10.5 05/16/2016 [facility] CHEM PANEL Total Protein 8.3 6.4 - 8.4 05/16/2016 [facility] CHEM PANEL AGAP 11.7 10.0 - 20.0 05/16/2016 [facility] CHEM PANEL B/C Ratio 10 6 - 25 05/16/2016 [facility] CHEM PANEL Chloride Lvl 109 95 - 109 05/16/2016 [facility] CHEM PANEL CO2 24 24 - 32 05/16/2016 [facility] CHEM PANEL Creatinine Lvl 0.62 0.50 - 1.40 05/16/2016 [facility] CHEM PANEL Sodium Lvl 142 135 - 145 05/16/2016 [facility] CHEM PANEL Potassium Lvl 2.7 3.5 - 5.1 05/16/2016 Result Comment: Critical Result(s) fisher d to Gabriel Daigle at 05/16/2016 04:28 by Deuce Vance. Read back OK. [facility] ENDOCRINOLOGY S Preg Ne gative *NA* (05/16/16 3:36 AM) Negative 05/16/2016 [facility] HEMATOLOGY Platelet 181 133 - 450 05/16/2016 [facility] HEMATOLOGY RDW 13.2 11.5 - 14.5 05/16/2016 [facility] HEMATOLOGY MPV 8.9 7.4 - 10.4 05/16/2016 [facility] HEMATOLOGY MCHC 35.2 32.0 - 36.0 05/16/2016 [facility] HEMATOLOGY Hgb 13.9 12.0 - 16.0 05/16/2016 [facility] HEMATOLOGY MCH 36.0 27.0 - 31.0 05/16/2016 [facility] HEMATOLOGY MCV 102.5 80.0 - 98.0 05/16/2016 [facility] HEMATOLOGY Hct 39.6 36.0 - 48.0 05/16/2016 [facility] HEMATOLOGY WBC 9.1 3.7 - 10.4 05/16/2016 [facility] HEMATOLOGY RBC 3.86 4.20 - 5.40 05/16/2016 [facility] HEMATOLOGY Monocytes # 0.5 0.0 - 0.8 05/16/2016 [facility] HEMATOLOGY Macrocyte 1+ *ABN* (05/16/16 3:36 AM) None Seen 05/16/2016 [facility] HEMATOLOGY Eosinophils # 0.2 0.0 - 0.5 05/16/2016 [facility] HEMATOLOGY Monocytes 5.8 2.0 - 12.0 05/16/2016 [facility] HEMATOLOGY Lymphocytes 25.1 20.0 - 40.0 05/16/2016 [facility] HEMATOLOGY Basophils 0.2 0.0 - 1.0 05/16/2016 [facility] HEMATOLOGY Eosinophils 2.4 0.0 - 4.0 05/16/2016 [facility] HEMATOLOGY Lymphocytes # 2.3 1.0 - 5.5 05/16/2016 [facility] HEMATOLOGY Segs-Bands # 6.1 1.5 - 8.1 05/16/2016 [facility] HEMATOLOGY Segs 66.5 45.0 - 75.0 05/16/2016 [facility] HEMATOLOGY POC Activated Clotting Ti me 317 04/23/2015 [facility] CARDIAC ENZYMES Troponin-I <0.02 0.00 - 0.40 04/23/2015 [facility] HEMATOLOGY PTT 32.3 22.9 - 35.8 04/23/2015 [facility] HEMATOLOGY PT 14.4 12.0 - 14.7 04/23/2015 [facility] HEMATOLOGY INR 1.09 0.85 - 1.17 04/23/2015 [facility] CARDIAC ENZYMES Troponin-I <0.02 0.00 - 0.40 04/22/2015 [facility] CARDIAC ENZYMES Troponin-T <0.010 0.000 - 0.100 04/22/2015 [facility] CARDIAC ENZYMES Total CK 34 12 - 191 04/22/2015 [facility] CARDIAC ENZYMES Troponin-T <0.010 0.000 - 0.100 04/22/2015 [facility] CARDIAC ENZYMES Troponin-I <0.02 0.00 - 0.40 04/22/2015 [facility] CARDIAC ENZYMES Total CK 24 12 - 191 04/22/2015 [facility] ELECTROLYTES AGAP 11.4 10.0 - 20.0 04/22/2015 [facility] ELECTROLYTES eGFR 89 04/22/2015 Result Comment: The eGFR is calculated using the CKD-EPI formula. In most young, healthy individuals the eGFR will be >90 mL/min/1.73m2. The eGFR declines with age. An eGFR of 60-89 may be normal in some populations, particularly the elderly, for whom the CKD-EPI formula has not been extensively validated. Use of the eGFR is not recommended in the following populations:

Individuals with unstable creatinine concentrations, including patients and those with serious co-morbid conditions.

Patients with extremes in muscle mass or diet.

The data above are obtained from the National Kidney Disease Education Program (NKDEP) which additionally recommends that when the eGFR is used in patients with extremes of body mass index for purposes of drug dosing, the eGFR should be multiplied by the estimated BMI. [facility] ELECTROLYTES Calcium Lvl 8.8 8.5 - 10.5 04/22/2015 [facility] ELECTROLYTES BUN 14 7 - 22 04/22/2015 [facility] ELECTROLYTES CO2 30 24 - 32 04/22/2015 [facility] ELECTROLYTES Chloride Lvl 103 95 - 109 04/22/2015 [facility] ELECTROLYTES Potassium Lvl 4.4 3.5 - 5.1 04/22/2015 [facility] ELECTROLYTES Sodium Lvl 140 135 - 145 04/22/2015 [facility] ELECTROLYTES Creatinine Lvl 0.9 0.5 - 1.4 04/22/2015 [facility] ELECTROLYTES Glucose Lvl 83 70 - 99 04/22/2015 [facility] HEMATOLOGY Segs-Bands # 1.3 1.5 - 8.1 04/22/2015 [facility] HEMATOLOGY Lymphocytes # 2.1 1.0 - 5.5 04/22/2015 [facility] HEMATOLOGY Monocytes # 0.3 0.0 - 0.8 04/22/2015 [facility] HEMATOLOGY Eosinophils # 0.1 0.0 - 0.5 04/22/2015 [facility] HEMATOLOGY Macrocyte 3+ *NA* (04/21/15 9:46 PM) None Seen 04/22/2015 [facility] HEMATOLOGY Plt Morph Shanice l (04/21/15 9:46 PM) 04/22/2015 [facility] HEMATOLOGY Lymphocytes 56.1 20.0 - 40.0 04/22/2015 [facility] HEMATOLOGY Segs 32.8 45.0 - 75.0 04/22/2015 [facility] HEMATOLOGY Basophils 0.4 0.0 - 1.0 04/22/2015 [facility] HEMATOLOGY Eosinophils 3.2 0.0 - 4.0 04/22/2015 [facility] HEMATOLOGY Monocytes 7.5 2.0 - 12.0 04/22/2015 [facility] HEMATOLOGY WBC 3.8 3.7 - 10.4 04/22/2015 [facility] HEMATOLOGY MCH 36.3 27.0 - 31.0 04/22/2015 [facility] HEMATOLOGY MCHC 32.8 32.0 - 36.0 04/22/2015 [facility] HEMATOLOGY RDW 13.6 11.5 - 14.5 04/22/2015 [facility] HEMATOLOGY MPV 8.0 7.4 - 10.4 04/22/2015 [facility] HEMATOLOGY Platelet 237 133 - 450 04/22/2015 [facility] HEMATOLOGY Hct 38.3 36.0 - 48.0 04/22/2015 [facility] HEMATOLOGY RBC 3.46 4.20 - 5.40 04/22/2015 [facility] HEMATOLOGY Hgb 12.6 12.0 - 16.0 04/22/2015 [facility] HEMATOLOGY MCV 110.7 80.0 - 98.0 04/22/2015 [facility] HEMATOLOGY INR 0.95 0.85 - 1.17 04/22/2015 [facility] HEMATOLOGY PT 13.0 12.0 - 14.7 04/22/2015 [facility] HEMATOLOGY PTT 27.4 22.9 - 35.8 04/22/2015 [facility] CHEM PANEL Magnesium Lvl 2.0 1.8 - 2.4 02/10/2015 [facility] CHEM PANEL eGFR 127 02/10/2015 Result Comment: The eGFR is calculated using the CKD-EPI formula. In most young, healthy individuals the eGFR will be >90 mL/min/1.73m2. The eGFR declines with age. An eGFR of 60-89 may be normal in some populations, particularly the elderly, for whom the CKD-EPI formula has not been extensively validated. Use of the eGFR is not recommended in the following populations:

Individuals with unstable creatinine concentrations, including patients and those with serious co-morbid conditions.

Patients with extremes in muscle mass or diet.

The data above are obtained from the National Kidney Disease Education Program (NKDEP) which additionally recommends that when the eGFR is used in patients with extremes of body mass index for purposes of drug dosing, the eGFR should be multiplied by the estimated BMI. [facility] CHEM PANEL Calcium Lvl 8.7 8.5 - 10.5 02/10/2015 [facility] CHEM PANEL CO2 21 24 - 32 02/10/2015 [facility] CHEM PANEL Chloride Lvl 111 95 - 109 02/10/2015 [facility] CHEM PANEL Potassium Lvl 3.9 3.5 - 5.1 02/10/2015 [facility] CHEM PANEL Sodium Lvl 141 135 - 145 02/10/2015 [facility] CHEM PANEL Creatinine Lvl 0.6 0.5 - 1.4 02/10/2015 [facility] CHEM PANEL BUN 9 7 - 22 02/10/2015 [facility] CHEM PANEL Glucose Lvl 90 70 - 99 02/10/2015 [facility] CHEM PANEL AGAP 12.9 10.0 - 20.0 02/10/2015 [facility] CHEM PANEL Phosphorus 3.9 2.5 - 4.5 02/10/2015 [facility] HEMATOLOGY Hgb 13.5 12.0 - 16.0 02/10/2015 [facility] HEMATOLOGY WBC 5.6 3.7 - 10.4 02/10/2015 [facility] HEMATOLOGY RBC 3.73 4.20 - 5.40 02/10/2015 [facility] HEMATOLOGY MCV 105.3 80.0 - 98.0 02/10/2015 [facility] HEMATOLOGY Hct 39.3 36.0 - 48.0 02/10/2015 [facility] HEMATOLOGY MCH 36.1 27.0 - 31.0 02/10/2015 [facility] HEMATOLOGY RDW 14.9 11.5 - 14.5 02/10/2015 [facility] HEMATOLOGY MCHC 34.3 32.0 - 36.0 02/10/2015 [facility] HEMATOLOGY Platelet 177 133 - 450 02/10/2015 [facility] HEMATOLOGY MPV 8.8 7.4 - 10.4 02/10/2015 [facility] HEMATOLOGY Eosinophils # 0.1 0.0 - 0.5 02/10/2015 [facility] HEMATOLOGY Monocytes # 0.5 0.0 - 0.8 02/10/2015 [facility] HEMATOLOGY Lymphocytes # 2.8 1.0 - 5.5 02/10/2015 [facility] HEMATOLOGY Monocytes 8.6 2.0 - 12.0 02/10/2015 [facility] HEMATOLOGY Eosinophils 2.0 0.0 - 4.0 02/10/2015 [facility] HEMATOLOGY Basophils 0.4 0.0 - 1.0 02/10/2015 [facility] HEMATOLOGY Segs-Bands # 2.2 1.5 - 8.1 02/10/2015 [facility] HEMATOLOGY Macrocyte 1+ *ABN* (02/10/15 5:20 AM) None Seen 02/10/2015 [facility] HEMATOLOGY Lymphocytes 50.3 20.0 - 40.0 02/10/2015 [facility] HEMATOLOGY Segs 38.7 45.0 - 75.0 02/10/2015 [facility] CHEM PANEL eGFR 121 02/09/2015 Result Comment: The eGFR is calculated using the CKD-EPI formula. In most young, healthy individuals the eGFR will be >90 mL/min/1.73m2. The eGFR declines with age. An eGFR of 60-89 may be normal in some populations, particularly the elderly, for whom the CKD-EPI formula has not been extensively validated. Use of the eGFR is not recommended in the following populations:

Individuals with unstable creatinine concentrations, including patients and those with serious co-morbid conditions.

Patients with extremes in muscle mass or diet.

The data above are obtained from the National Kidney Disease Education Program (NKDEP) which additionally recommends that when the eGFR is used in patients with extremes of body mass index for purposes of drug dosing, the eGFR should be multiplied by the estimated BMI. [facility] CHEM PANEL CO2 25 24 - 32 02/09/2015 [facility] CHEM PANEL Calcium Lvl 9.2 8.5 - 10.5 02/09/2015 [facility] CHEM PANEL Chloride Lvl 105 95 - 109 02/09/2015 [facility] CHEM PANEL Glucose Lvl 123 70 - 99 02/09/2015 [facility] CHEM PANEL BUN 7 7 - 22 02/09/2015 [facility] CHEM PANEL Creatinine Lvl 0.7 0.5 - 1.4 02/09/2015 [facility] CHEM PANEL Potassium Lvl 4.0 3.5 - 5.1 02/09/2015 [facility] CHEM PANEL Sodium Lvl 139 135 - 145 02/09/2015 [facility] CHEM PANEL AGAP 13.0 10.0 - 20.0 02/09/2015 [facility] HEMATOLOGY MCHC 34.5 32.0 - 36.0 02/09/2015 [facility] HEMATOLOGY MPV 8.9 7.4 - 10.4 02/09/2015 [facility] HEMATOLOGY RBC 3.75 4.20 - 5.40 02/09/2015 [facility] HEMATOLOGY Hgb 13.5 12.0 - 16.0 02/09/2015 [facility] HEMATOLOGY Hct 39.3 36.0 - 48.0 02/09/2015 [facility] HEMATOLOGY MCH 36.1 27.0 - 31.0 02/09/2015 [facility] HEMATOLOGY RDW 14.6 11.5 - 14.5 02/09/2015 [facility] HEMATOLOGY Platelet 185 133 - 450 02/09/2015 [facility] HEMATOLOGY MCV 104.7 80.0 - 98.0 02/09/2015 [facility] HEMATOLOGY WBC 4.6 3.7 - 10.4 02/09/2015 [facility] HEMATOLOGY Lymphocytes # 2.0 1.0 - 5.5 02/09/2015 [facility] HEMATOLOGY Monocytes # 0.4 0.0 - 0.8 02/09/2015 [facility] HEMATOLOGY Macrocyte 1+ *ABN* (02/09/15 10:40 AM) None Seen 02/09/2015 [facility] HEMATOLOGY Eosinophils # 0.1 0.0 - 0.5 02/09/2015 [facility] HEMATOLOGY Lymphocytes 44.1 20.0 - 40.0 02/09/2015 [facility] HEMATOLOGY Basophils 0.5 0.0 - 1.0 02/09/2015 [facility] HEMATOLOGY Segs 44.5 45.0 - 75.0 02/09/2015 [facility] HEMATOLOGY Eosinophils 2.0 0.0 - 4.0 02/09/2015 [facility] HEMATOLOGY Segs-Bands # 2.1 1.5 - 8.1 02/09/2015 [facility] HEMATOLOGY Monocytes 8.9 2.0 - 12.0 02/09/2015 [facility] HEMATOLOGY Retic Auto 0.8 0.5 - 1.5 02/09/2015 [facility] IMMUNOLOGY Hgb Interp Hemog lobin electrophoresis results are consistent with sickle cell trait (Hb ) unless the patient was recently transfused. Considering the patient's current clinical presentation, transfusion history is essential for establishing the final diagnosis (to rule out homozygous SS disease) and is not available for review in the EMR. The electronic medical record has been reviewed for relevant history. I have personally reviewed the test results and concur with the resident's interpretation. CPT 28860-PT 02/09/2015 [facility] IMMUNOLOGY Hgb A2 % 2.7 2.2 - 3.2 02/09/2015 [facility] IMMUNOLOGY Hgb C % 0.0 0.0 - 0.0 02/09/2015 [facility] IMMUNOLOGY Hgb F % 0.7 0.0 - 1.0 02/09/2015 [facility] IMMUNOLOGY Hgb S % 39.2 0.0 - 0.0 02/09/2015 [facility] IMMUNOLOGY Hgb A % 57.4 95.8 - 97.8 02/09/2015 [facility] ANEMIA STUDY Folate Lvl 13.3 >=3.0 ng/mL 02/08/2015 [facility] ANEMIA STUDY Vitamin B12 Lvl 498 254 - 1320 02/08/2015 [facility] CHEM PANEL Bili Total 0.8 0.2 - 1.3 02/08/2015 [facility] CHEM PANEL Bili Direct 0.1 0.0 - 0.3 02/08/2015 [facility] CHEM PANEL Bili Indirect 0.7 0.0 - 1.0 02/08/2015 [facility] CHEM PANEL AST 6 0 - 37 02/08/2015 [facility] CHEM PANEL Alk Phos 32 39 - 136 02/08/2015 [facility] CHEM PANEL A/G Ratio 0.8 0.7 - 1.6 02/08/2015 [facility] CHEM PANEL Albumin Lvl 3.6 3.5 - 5.0 02/08/2015 [facility] CHEM PANEL Globulin 4.4 2.0 - 4.0 02/08/2015 [facility] CHEM PANEL ALT <6 0 - 65 02/08/2015 [facility] CHEM PANEL Total Protein 8.0 6.4 - 8.4 02/08/2015 [facility] CARDIAC ENZYMES Troponin-T <0.010 0.000 - 0.100 02/08/2015 [facility] CARDIAC ENZYMES Total CK 41 12 - 191 02/08/2015 [facility] CARDIAC ENZYMES Troponin-I <0.02 0.00 - 0.40 02/08/2015 [facility] CHEM PANEL eGFR 127 02/08/2015 Result Comment: The eGFR is calculated using the CKD-EPI formula. In most young, healthy individuals the eGFR will be >90 mL/min/1.73m2. The eGFR declines with age. An eGFR of 60-89 may be normal in some populations, particularly the elderly, for whom the CKD-EPI formula has not been extensively validated. Use of the eGFR is not recommended in the following populations:

Individuals with unstable creatinine concentrations, including patients and those with serious co-morbid conditions.

Patients with extremes in muscle mass or diet.

The data above are obtained from the National Kidney Disease Education Program (NKDEP) which additionally recommends that when the eGFR is used in patients with extremes of body mass index for purposes of drug dosing, the eGFR should be multiplied by the estimated BMI. [facility] CHEM PANEL Glucose Lvl 106 70 - 99 02/08/2015 [facility] CHEM PANEL BUN 6 7 - 22 02/08/2015 [facility] CHEM PANEL AGAP 11.2 10.0 - 20.0 02/08/2015 [facility] CHEM PANEL Calcium Lvl 8.3 8.5 - 10.5 02/08/2015 [facility] CHEM PANEL Creatinine Lvl 0.6 0.5 - 1.4 02/08/2015 [facility] CHEM PANEL CO2 23 24 - 32 02/08/2015 [facility] CHEM PANEL Chloride Lvl 113 95 - 109 02/08/2015 [facility] CHEM PANEL Sodium Lvl 143 135 - 145 02/08/2015 [facility] CHEM PANEL Potassium Lvl 4.2 3.5 - 5.1 02/08/2015 [facility] HEMATOLOGY INR 1.13 0.85 - 1.17 02/08/2015 [facility] HEMATOLOGY PT 14.6 12.0 - 14.7 02/08/2015 [facility] HEMATOLOGY PTT 37.5 22.9 - 35.8 02/08/2015 [facility] CARDIAC ENZYMES Troponin-I <0.02 0.00 - 0.40 02/08/2015 [facility] DRUG SCREEN U Candy Scr Nega tive *NA* (02/08/15 2:30 AM) Negative 02/08/2015 [facility] DRUG SCREEN U Amph Scr Nega tive *NA* (02/08/15 2:30 AM) Negative 02/08/2015 [facility] DRUG SCREEN U Phencyc Scr Nega tive *NA* (02/08/15 2:30 AM) Negative 02/08/2015 [facility] DRUG SCREEN UDS Note See Note (02/08/15 2:30 AM) 02/08/2015 [facility] DRUG SCREEN U Cocaine Scr Nega tive *NA* (02/08/15 2:30 AM) Negative 02/08/2015 [facility] DRUG SCREEN U Benzodia Scr Nega tive *NA* (02/08/15 2:30 AM) Negative 02/08/2015 [facility] DRUG SCREEN U Cannab Scr Posi tive *ABN* (02/08/15 2:30 AM) Negative 02/08/2015 [facility] DRUG SCREEN U Opiate Scr Posi tive *ABN* (02/08/15 2:30 AM) Negative 02/08/2015 [facility] CARDIAC ENZYMES Total CK 44 12 - 191 02/08/2015 [facility] HEMATOLOGY Atypical Lymphs 0.0 <=0.0 % 02/08/2015 [facility] HEMATOLOGY Lymphocytes # 3.3 1.0 - 5.5 02/08/2015 [facility] HEMATOLOGY Monocytes # 0.1 0.0 - 0.8 02/08/2015 [facility] HEMATOLOGY Segs-Bands # 3.5 1.5 - 8.1 02/08/2015 [facility] HEMATOLOGY Eosinophils # 0.1 0.0 - 0.5 02/08/2015 [facility] HEMATOLOGY Segs 50.0 45.0 - 75.0 02/08/2015 [facility] HEMATOLOGY Lymphocytes 47.0 20.0 - 40.0 02/08/2015 [facility] HEMATOLOGY Bands 0.0 0.0 - 11.0 02/08/2015 [facility] HEMATOLOGY Eosinophils 1.0 0.0 - 4.0 02/08/2015 [facility] HEMATOLOGY Monocytes 2.0 2.0 - 12.0 02/08/2015 [facility] HEMATOLOGY Tot Cell Ct 100 02/08/2015 [facility] HEMATOLOGY Plt Morph Shanice l (02/08/15 2:18 AM) 02/08/2015 [facility] HEMATOLOGY Macrocyte 1+ *ABN* (02/08/15 2:18 AM) None Seen 02/08/2015 [facility] HEMATOLOGY Anisocyte 1+ *ABN* (02/08/15 2:18 AM) None Seen 02/08/2015 [facility] HEMATOLOGY PB Smear Path Mildl y macrocytic anemia with ansiocytosis. Unremarkable WBC morphology. Adequate platelets with occasional large forms. CPT 83356 02/08/2015 [facility] [place] HEMATOLOGY PTT 38.8 22.9 - 35.8 02/08/2015 [facility] HEMATOLOGY INR 1.10 0.85 - 1.17 02/08/2015 [facility] HEMATOLOGY PT 14.3 12.0 - 14.7 02/08/2015 [facility] HEMATOLOGY MCHC 34.3 32.0 - 36.0 02/08/2015 [facility] HEMATOLOGY Hct 40.0 36.0 - 48.0 02/08/2015 [facility] HEMATOLOGY Hgb 13.7 12.0 - 16.0 02/08/2015 [facility] HEMATOLOGY MPV 8.9 7.4 - 10.4 02/08/2015 [facility] HEMATOLOGY MCH 36.0 27.0 - 31.0 02/08/2015 [facility] HEMATOLOGY MCV 105.0 80.0 - 98.0 02/08/2015 [facility] HEMATOLOGY Platelet 171 133 - 450 02/08/2015 [facility] HEMATOLOGY RDW 15.2 11.5 - 14.5 02/08/2015 [facility] HEMATOLOGY RBC 3.81 4.20 - 5.40 02/08/2015 [facility] HEMATOLOGY WBC 7.0 3.7 - 10.4 02/08/2015 [facility] CARDIAC ENZYMES Troponin-I <0.02 0.00 - 0.40 02/07/2015 [facility] CARDIAC ENZYMES Total CK 72 12 - 191 02/07/2015 [facility] CHEM PANEL Magnesium Lvl 1.9 1.8 - 2.4 02/07/2015 [facility] CHEM PANEL Phosphorus 3.1 2.5 - 4.5 02/07/2015 [facility] HEMATOLOGY Basophils 0.5 0.0 - 1.0 02/07/2015 [facility] HEMATOLOGY PT 13.1 12.0 - 14.7 02/07/2015 [facility] HEMATOLOGY INR 0.99 0.85 - 1.17 02/07/2015 [facility] HEMATOLOGY PTT 30.3 22.9 - 35.8 02/07/2015 [facility] LIPIDS VLDL 15 07/14/2014 [facility] LIPIDS LDL (Calculated) 120 <=99 mg/dL 07/14/2014 [facility] LIPIDS HDL 33 >=61 mg/dL 07/14/2014 [facility] LIPIDS Chol 168 <=199 mg/dL 07/14/2014 [facility] LIPIDS Trig 73 <=149 mg/dL 07/14/2014 [facility] LIPIDS CHD Risk 5.09 3.90 - 5.80 07/14/2014 [facility] ELECTROLYTES AGAP 9.0 10.0 - 20.0 07/14/2014 [facility] ELECTROLYTES eGFR 122 07/14/2014 <sup>1</sup>Result Comment: The eGFR is calculated using the CKD-EPI formula. In most young, healthy individuals the eGFR will be >90 mL/min/1.73m2. The eGFR declines with age. An eGFR of 60-89 may be normal in some populations, particularly the elderly, for whom the CKD-EPI formula has not been extensively validated. Use of the eGFR is not recommended in the following populations:& lt;br/>
Individuals with unstable creatinine concentrations, including patients and those with serious co-morbid conditions.

Patients with extremes in muscle mass or diet.

The data above are obtained from the National Kidney Disease Education Program (NKDEP) which additionally recommends that when the eGFR is used in patients with extremes of body mass index for purposes of drug dosing, the eGFR should be multiplied by the estimated BMI. [facility] ELECTROLYTES BUN 12 7 - 22 07/14/2014 [facility] ELECTROLYTES Creatinine Lvl 0.7 0.5 - 1.4 07/14/2014 [facility] ELECTROLYTES Glucose Lvl 80 70 - 99 07/14/2014 <sup>4</sup>Interpretive Data: Adult ref erence range values reflect the clinical guidelines
of the [place] [employer]. [facility] ELECTROLYTES Sodium Lvl 141 135 - 145 07/14/2014 [facility] ELECTROLYTES Potassium Lvl 4.0 3.5 - 5.1 07/14/2014 [facility] ELECTROLYTES Calcium Lvl 8.0 8.5 - 10.5 07/14/2014 [facility] ELECTROLYTES Chloride Lvl 109 95 - 109 07/14/2014 [facility] ELECTROLYTES CO2 27 24 - 32 07/14/2014 [facility] HEMATOLOGY RBC 3.19 4.20 - 5.40 07/14/2014 [facility] HEMATOLOGY Hct 32.5 36.0 - 48.0 07/14/2014 [facility] HEMATOLOGY WBC 7.4 3.7 - 10.4 07/14/2014 [facility] HEMATOLOGY Hgb 10.9 12.0 - 16.0 07/14/2014 [facility] HEMATOLOGY MCHC 33.6 32.0 - 36.0 07/14/2014 [facility] HEMATOLOGY MCV 101.7 80.0 - 98.0 07/14/2014 [facility] HEMATOLOGY MCH 34.1 27.0 - 31.0 07/14/2014 [facility] HEMATOLOGY RDW 13.9 11.5 - 14.5 07/14/2014 [facility] HEMATOLOGY MPV 8.6 7.4 - 10.4 07/14/2014 [facility] HEMATOLOGY Platelet 192 133 - 450 07/14/2014 [facility] HEMATOLOGY Lymphocytes # 2.6 1.0 - 5.5 07/14/2014 [facility] HEMATOLOGY Eosinophils 1.7 0.0 - 4.0 07/14/2014 [facility] HEMATOLOGY Segs 55.9 45.0 - 75.0 07/14/2014 [facility] HEMATOLOGY Monocytes 6.5 2.0 - 12.0 07/14/2014 [facility] HEMATOLOGY Lymphocytes 35.3 20.0 - 40.0 07/14/2014 [facility] HEMATOLOGY Segs-Bands # 4.1 1.5 - 8.1 07/14/2014 [facility] HEMATOLOGY Basophils 0.6 0.0 - 1.0 07/14/2014 [facility] HEMATOLOGY Basophils # 0.0 0.0 - 0.2 07/14/2014 [facility] HEMATOLOGY Monocytes # 0.5 0.0 - 0.8 07/14/2014 [facility] HEMATOLOGY Eosinophils # 0.1 0.0 - 0.5 07/14/2014 [facility] CHEM PANEL eGFR 122 07/14/2014 <sup>2</sup>Result Comment: The eGFR is calculated using the CKD-EPI formula. In most young, healthy individuals the eGFR will be >90 mL/min/1.73m2. The eGFR declines with age. An eGFR of 60-89 may be normal in some populations, particularly the elderly, for whom the CKD-EPI formula has not been extensively validated. Use of the eGFR is not recommended in the following populations:& lt;br/>
Individuals with unstable creatinine concentrations, including patients and those with serious co-morbid conditions.

Patients with extremes in muscle mass or diet.

The data above are obtained from the National Kidney Disease Education Program (NKDEP) which additionally recommends that when the eGFR is used in patients with extremes of body mass index for purposes of drug dosing, the eGFR should be multiplied by the estimated BMI. [facility] CHEM PANEL BUN 11 7 - 22 07/14/2014 [facility] CHEM PANEL Creatinine Lvl 0.7 0.5 - 1.4 07/14/2014 [facility] CHEM PANEL Chloride Lvl 108 95 - 109 07/14/2014 [facility] CHEM PANEL Potassium Lvl 3.6 3.5 - 5.1 07/14/2014 [facility] CHEM PANEL Sodium Lvl 144 135 - 145 07/14/2014 [facility] CHEM PANEL Calcium Lvl 8.3 8.5 - 10.5 07/14/2014 [facility] CHEM PANEL AGAP 14.6 10.0 - 20.0 07/14/2014 [facility] CHEM PANEL CO2 25 24 - 32 07/14/2014 [facility] CHEM PANEL Glucose Lvl 79 70 - 99 07/14/2014 <sup>5</sup>Interpretive Data: Adult ref erence range values reflect the clinical guidelines
of the [place] [employer]. [facility] CHEM PANEL eGFR 122 07/14/2014 <sup>3</sup>Result Comment: The eGFR is calculated using the CKD-EPI formula. In most young, healthy individuals the eGFR will be >90 mL/min/1.73m2. The eGFR declines with age. An eGFR of 60-89 may be normal in some populations, particularly the elderly, for whom the CKD-EPI formula has not been extensively validated. Use of the eGFR is not recommended in the following populations:& lt;br/>
Individuals with unstable creatinine concentrations, including patients and those with serious co-morbid conditions.

Patients with extremes in muscle mass or diet.

The data above are obtained from the National Kidney Disease Education Program (NKDEP) which additionally recommends that when the eGFR is used in patients with extremes of body mass index for purposes of drug dosing, the eGFR should be multiplied by the estimated BMI. [facility] CHEM PANEL Creatinine Lvl 0.7 0.5 - 1.4 07/14/2014 [facility] HEMATOLOGY Platelet 227 133 - 450 07/14/2014 [facility] HEMATOLOGY PTT 54.6 22.9 - 35.8 07/14/2014 <sup>15</sup>Interpretive Data: Heparin Therapeutic Range: 57 - 92 Seconds [facility] ELECTROLYTES AGAP 12.7 10.0 - 20.0 07/13/2014 [facility] ELECTROLYTES Chloride Lvl 106 95 - 109 07/13/2014 [facility] ELECTROLYTES Calcium Lvl 9.0 8.5 - 10.5 07/13/2014 [facility] ELECTROLYTES CO2 28 24 - 32 07/13/2014 [facility] ELECTROLYTES Glucose Lvl 89 70 - 99 07/13/2014 <sup>6</sup>Interpretive Data: Adult ref erence range values reflect the clinical guidelines
of the [place] [employer]. [facility] ELECTROLYTES BUN 13 7 - 22 07/13/2014 [facility] ELECTROLYTES Sodium Lvl 143 135 - 145 07/13/2014 [facility] ELECTROLYTES Potassium Lvl 3.7 3.5 - 5.1 07/13/2014 [facility] HEMATOLOGY WBC 7.1 3.7 - 10.4 07/13/2014 [facility] HEMATOLOGY MPV 8.6 7.4 - 10.4 07/13/2014 [facility] HEMATOLOGY RDW 14.1 11.5 - 14.5 07/13/2014 [facility] HEMATOLOGY Platelet 256 133 - 450 07/13/2014 [facility] HEMATOLOGY Hgb 13.1 12.0 - 16.0 07/13/2014 [facility] HEMATOLOGY MCHC 34.3 32.0 - 36.0 07/13/2014 [facility] HEMATOLOGY Hct 38.1 36.0 - 48.0 07/13/2014 [facility] HEMATOLOGY MCH 34.7 27.0 - 31.0 07/13/2014 [facility] HEMATOLOGY RBC 3.77 4.20 - 5.40 07/13/2014 [facility] HEMATOLOGY MCV 101.2 80.0 - 98.0 07/13/2014 [facility] HEMATOLOGY Basophils # 0.0 0.0 - 0.2 07/13/2014 [facility] HEMATOLOGY Segs-Bands # 4.0 1.5 - 8.1 07/13/2014 [facility] HEMATOLOGY Basophils 0.4 0.0 - 1.0 07/13/2014 [facility] HEMATOLOGY Eosinophils # 0.1 0.0 - 0.5 07/13/2014 [facility] HEMATOLOGY Lymphocytes # 2.6 1.0 - 5.5 07/13/[address] [facility] HEMATOLOGY Monocytes # 0.4 0.0 - 0.8 07/13/2014 [facility] HEMATOLOGY Monocytes 5.3 2.0 - 12.0 07/13/[address] [facility] HEMATOLOGY Eosinophils 1.2 0.0 - 4.0 07/13/[address] [facility] HEMATOLOGY Segs 56.7 45.0 - 75.0 07/13/[address] [facility] HEMATOLOGY Lymphocytes 36.4 20.0 - 40.0 07/13/2014 [facility] CARDIAC ENZYMES CK MB 7.3 0.5 - 3.6 07/12/[address] [facility] CARDIAC ENZYMES Total CK 292 12 - 191 07/12/[address] [facility] CARDIAC ENZYMES Troponin-I 8.79 0.00 - 0.40 07/12/2014 <sup>7</sup>Result Comment: Critical Res ult(s) called to alex theodore at _07/12/2014 18:44 by_[email or web address]. Read back OK. [facility] HEMATOLOGY Monocytes # 0.5 0.0 - 0.8 07/12/2014 [facility] HEMATOLOGY Lymphocytes # 3.3 1.0 - 5.5 07/12/[address] [facility] HEMATOLOGY Basophils # 0.1 0.0 - 0.2 07/12/[address] [facility] HEMATOLOGY Segs-Bands # 4.5 1.5 - 8.1 07/12/[address] [facility] HEMATOLOGY Basophils 0.8 0.0 - 1.0 07/12/[address] [facility] HEMATOLOGY Lymphocytes 39.2 20.0 - 40.0 07/12/2014 [facility] HEMATOLOGY Eosinophils 0.6 0.0 - 4.0 07/12/2014 [facility] HEMATOLOGY Monocytes 6.3 2.0 - 12.0 07/12/[address] [facility] HEMATOLOGY Eosinophils # 0.1 0.0 - 0.5 07/12/[address] [facility] HEMATOLOGY Segs 53.1 45.0 - 75.0 07/12/[address] [facility] HEMATOLOGY RDW 13.5 11.5 - 14.5 07/12/[address] [facility] HEMATOLOGY MPV 8.4 7.4 - 10.4 07/12/2014 [facility] HEMATOLOGY MCHC 35.4 32.0 - 36.0 07/12/2014 [facility] HEMATOLOGY MCH 35.6 27.0 - 31.0 07/12/2014 [facility] HEMATOLOGY Hct 34.2 36.0 - 48.0 07/12/2014 [facility] HEMATOLOGY WBC 8.5 3.7 - 10.4 07/12/2014 [facility] HEMATOLOGY MCV 100.8 80.0 - 98.0 07/12/2014 [facility] HEMATOLOGY Hgb 12.1 12.0 - 16.0 07/12/2014 [facility] HEMATOLOGY RBC 3.39 4.20 - 5.40 07/12/2014 [facility] DRUG SCREEN U Cannab Scr Posi tive *ABN* (07/12/14 9:07 AM) Negative 07/12/2014 [facility] DRUG SCREEN U Phencyc Scr Nega tive *NA* (07/12/14 9:07 AM) Negative 07/12/2014 [facility] DRUG SCREEN U Opiate Scr Nega tive *NA* (07/12/14 9:07 AM) Negative 07/12/2014 [facility] DRUG SCREEN U Propoxyph Scr Nega tive *NA* (07/12/14 9:07 AM) Negative 07/12/2014 [facility] DRUG SCREEN UDS Note See Note 10 (07/12/14 9:07 AM) 07/12/2014 <sup>10</sup>Interpretive Da ta: Drugs reported as positive have not been confirmed by a second
method and should be used for medical purposes only. To order
confirmation, contact laboratory.

note: Below are cut-off concentrations for all urine drugs of
abuse performed in the laboratory. Some drugs listed in the table
may not be included in this panel.

Description Cut-off concentration

Ampheta mine 1000 ng/mL
Barbiturates 200 ng/mL
Benzodiazepines 300 ng/mL
Cocaine metabolites 300 ng/mL
Opiates 300 ng/mL
Phencyclidine 25 ng/mL
Propoxyphene 300 ng/mL
Marijuana metabolites 50 ng/mL
Methadone 300 ng/mL&l t;br/>Urine alcohol 20 mg/dL [facility] DRUG SCREEN U Methadone Scr Nega tive *NA* (07/12/14 9:07 AM) Negative 07/12/2014 [facility] DRUG SCREEN U Benzodia Scr Nega tive *NA* (07/12/14 9:07 AM) Negative 07/12/2014 [facility] DRUG SCREEN U Cocaine Scr Nega tive *NA* (07/12/14 9:07 AM) Negative 07/12/2014 [facility] DRUG SCREEN U Candy Scr Nega tive *NA* (07/12/14 9:07 AM) Negative 07/12/2014 [facility] DRUG SCREEN U Amph Scr Nega tive *NA* (07/12/14 9:07 AM) Negative 07/12/2014 [facility] HEMATOLOGY INR 1.12 0.85 - 1.17 07/12/2014 <sup>12</sup>Interpretive Data: RECOMMEN DED RANGES FOR PROTIME INR:
2.0-3.0 for most medical and surgical thromboembolic states.
2.5-3.5 for artificial heart valves and recurrent embolism.

INR SHOULD BE USED ONLY FOR PATIENTS ON STABLE ANTICOAGULANT THERAPY. [facility] HEMATOLOGY PT 14.5 12.0 - 14.7 07/12/2014 [facility] CARDIAC ENZYMES Troponin-I 17.00 0.00 - 0.40 07/12/2014 <sup>8</sup>Result Comment: Critical Res ult(s) called to berry at 07/12/2014 05:54 by [email or web address]. Read back OK. [facility] CARDIAC ENZYMES Total CK 403 12 - 191 07/12/2014 [facility] CARDIAC ENZYMES CK MB Index 3.8 0.0 - 2.5 07/12/2014 [facility] CARDIAC ENZYMES CK MB 15.4 0.5 - 3.6 07/12/2014 [facility] IMMUNOLOGY CDC HIV 4th GEN Negat dyan (07/12/14 3:57 AM) Negative 07/12/2014 [facility] HEMATOLOGY PT >100 seconds 12.0 - 14.7 07/12/2014 <sup>11</sup>Result Comment: Critical Re sult(s) called to jacey garsia at 07/12/2014 01:51_ by_gb. Read back OK. [facility] HEMATOLOGY INR See N ote 13, 14 (07/12/14 12:28 AM) 0.85 - 1.17 07/12/2014 <sup>13</sup>Result Comment: no result for INR due to elevated PT.07/12/2014 01:55/GB
<sup>14</sup>Interpretive Data: RECOMMENDED RANGES FOR PROTIME INR:
2.0-3.0 for most medical and surgical thromboembolic states.
2.5-3.5 for artificial heart valves and recurrent embolism.

INR SHOULD BE USED ONLY FOR PATIENTS ON STABLE ANTICOAGULANT THERAPY. [facility] HEMATOLOGY PTT >200 seconds 22.9 - 35.8 07/12/2014 <sup>16</sup>Result Comment: Critical Re sult(s) called to tomy at 07/12/2014 01:51_ by_gb. Read back OK.
<sup>17</sup>Interpretive Data: Heparin Therapeutic Range: 57 - 92 Seconds [facility] CARDIAC ENZYMES Troponin-I 16.50 0.00 - 0.40 07/12/2014 <sup>9</sup>Result Comment: Critical Res ult(s) called to alea verdin rn_ at 07/11/2014 22:12_ by_[email or web address]. Read back OK. [facility] CARDIAC ENZYMES CK MB 22.8 0.5 - 3.6 07/12/2014 [facility] CHEM PANEL Lipase Lvl 55 73 - 393 07/12/2014 [facility] DRUG SCREEN UDS Note See Note 3 (07/11/14 9:47 AM) 07/11/2014 <sup>3</sup>Interpretive Don a: Drugs reported as positive have not been confirmed by a second
method and should be used for medical purposes only. To order
confirmation, contact laboratory.

note: Below are cut-off concentrations for all urine drugs of
abuse performed in the laboratory. Some drugs listed in the table
may not be included in this panel.

Description Cut-off concentration

Ampheta mine 1000 ng/mL
Barbiturates 200 ng/mL
Benzodiazepines 300 ng/mL
Cocaine metabolites 300 ng/mL
Opiates 300 ng/mL
Phencyclidine 25 ng/mL
Propoxyphene 300 ng/mL
Marijuana metabolites 50 ng/mL
Methadone 300 ng/mL&lt ;br/>Urine alcohol 20 mg/dL [facility] DRUG SCREEN U Phencyc Scr Nega tive *NA* (07/11/14 9:47 AM) Negative 07/11/2014 [facility] DRUG SCREEN U Amph Scr Nega tive *NA* (07/11/14 9:47 AM) Negative 07/11/2014 [facility] DRUG SCREEN U Candy Scr Nega tive *NA* (07/11/14 9:47 AM) Negative 07/11/2014 [facility] DRUG SCREEN U Benzodia Scr Nega tive *NA* (07/11/14 9:47 AM) Negative 07/11/2014 [facility] DRUG SCREEN U Cannab Scr Posi tive *ABN* (07/11/14 9:47 AM) Negative 07/11/2014 [facility] DRUG SCREEN U Opiate Scr Nega tive *NA* (07/11/14 9:47 AM) Negative 07/11/2014 [facility] DRUG SCREEN U Cocaine Scr Nega tive *NA* (07/11/14 9:47 AM) Negative 07/11/2014 [facility] URINE AND STOOL UA Mucus See Note (07/11/14 9:47 AM) None Seen 07/11/2014 [facility] URINE AND STOOL UA Blood Trace *ABN* (07/11/14 9:47 AM) Negative 07/11/[address] [facility] URINE AND STOOL UA Bili Negative *NA* (07/11/14 9:47 AM) Negative 07/11/[address] [facility] URINE AND STOOL UA Ketones Negative *NA* (07/11/14 9:47 AM) Negative 07/11/2014 [facility] URINE AND STOOL UA Glucose Negative (07/11/14 9:47 AM) Negative 07/11/2014 [facility] URINE AND STOOL UA pH 6.0 5.0 - 8.0 07/11/[address] [facility] URINE AND STOOL UA Protein Negative (07/11/14 9:47 AM) Negative 07/11/2014 [facility] URINE AND STOOL UA Spec Grav 1.015 <=1.030 07/11/2014 [facility] URINE AND STOOL UA Color Yellow *NA* (07/11/14 9:47 AM) Yellow 07/11/2014 [facility] URINE AND STOOL UA Turbidity Clear (07/11/14 9:47 AM) Clear 07/11/2014 [facility] URINE AND STOOL UA Bacteria Moderate /HPF None Seen /HPF 07/11/2014 [facility] URINE AND STOOL UA RBC 0-2 /HPF 0 - 2 07/11/[address] [facility] URINE AND STOOL UA WBC 0-2 /HPF None Seen /HPF 07/11/2014 [facility] URINE AND STOOL UA Sq Epi Few /LPF Few /LPF 07/11/[address] [facility] URINE AND STOOL UA Leuk Est Negative (07/11/14 9:47 AM) Negative 07/11/2014 [facility] URINE AND STOOL UA Nitrite Negative (07/11/14 9:47 AM) Negative 07/11/2014 [facility] URINE AND STOOL UA Urobilinogen 0.2 0.1 - 1.0 07/11/2014 [facility] CARDIAC ENZYMES CK MB Index 1.3 0.0 - 2.5 07/11/2014 [facility] CARDIAC ENZYMES Total CK 62 12 - 191 07/11/2014 [facility] CARDIAC ENZYMES CK MB 0.8 0.5 - 3.6 07/11/2014 [facility] CARDIAC ENZYMES Troponin-I 0.06 0.00 - 0.40 07/11/2014 [facility] CHEM PANEL eGFR 104 07/11/2014 <sup>1</sup>Result Comment: The eGFR is calculated using the CKD-EPI formula. In most young, healthy individuals the eGFR will be >90 mL/min/1.73m2. The eGFR declines with age. An eGFR of 60-89 may be normal in some populations, particularly the elderly, for whom the CKD-EPI formula has not been extensively validated. Use of the eGFR is not recommended in the following populations:& lt;br/>
Individuals with unstable creatinine concentrations, including patients and those with serious co-morbid conditions.

Patients with extremes in muscle mass or diet.

The data above are obtained from the National Kidney Disease Education Program (NKDEP) which additionally recommends that when the eGFR is used in patients with extremes of body mass index for purposes of drug dosing, the eGFR should be multiplied by the estimated BMI. [facility] CHEM PANEL Total Protein 7.8 6.4 - 8.4 07/11/2014 [facility] CHEM PANEL Albumin Lvl 3.7 3.5 - 5.0 07/11/2014 [facility] CHEM PANEL Calcium Lvl 8.5 8.5 - 10.5 07/11/2014 [facility] CHEM PANEL AGAP 5.2 10.0 - 20.0 07/11/2014 [facility] CHEM PANEL B/C Ratio 16 6 - 25 07/11/2014 [facility] CHEM PANEL A/G Ratio 0.9 0.7 - 1.6 07/11/2014 [facility] CHEM PANEL Bili Total 0.3 0.2 - 1.3 07/11/2014 [facility] CHEM PANEL ALT 12 0 - 65 07/11/2014 [facility] CHEM PANEL Globulin 4.1 2.0 - 4.0 07/11/2014 [facility] CHEM PANEL AST 6 0 - 37 07/11/2014 [facility] CHEM PANEL Alk Phos 33 39 - 136 07/11/2014 [facility] CHEM PANEL CO2 31 24 - 32 07/11/2014 [facility] CHEM PANEL Chloride Lvl 106 95 - 109 07/11/2014 [facility] CHEM PANEL Glucose Lvl 106 70 - 99 07/11/2014 <sup>2</sup>Interpretive Data: Adult ref erence range values reflect the clinical guidelines
of the [place] [employer]. [facility] CHEM PANEL BUN 13 7 - 22 07/11/2014 [facility] CHEM PANEL Creatinine Lvl 0.8 0.5 - 1.4 07/11/[address] [facility] CHEM PANEL Sodium Lvl 139 135 - 145 07/11/2014 [facility] CHEM PANEL Potassium Lvl 3.2 3.5 - 5.1 07/11/[address] [facility] HEMATOLOGY Eosinophils 1.0 0.0 - 4.0 07/11/[address] [facility] HEMATOLOGY Monocytes # 0.2 0.0 - 0.8 07/11/[address] [facility] HEMATOLOGY Lymphocytes # 1.4 1.0 - 5.5 07/11/[address] [facility] HEMATOLOGY Segs-Bands # 6.3 1.5 - 8.1 07/11/[address] [facility] HEMATOLOGY Basophils 0.1 0.0 - 1.0 07/11/[address] [facility] HEMATOLOGY Eosinophils # 0.1 0.0 - 0.5 07/11/[address] [facility] HEMATOLOGY Basophils # 0.0 0.0 - 0.2 07/11/2014 [facility] HEMATOLOGY Monocytes 2.4 2.0 - 12.0 07/11/[address] [facility] HEMATOLOGY Lymphocytes 17.8 20.0 - 40.0 07/11/[address] [facility] HEMATOLOGY Segs 78.7 45.0 - 75.0 07/11/2014 [facility] HEMATOLOGY RBC 3.86 4.20 - 5.40 07/11/2014 [facility] HEMATOLOGY Hct 39.4 36.0 - 48.0 07/11/2014 [facility] HEMATOLOGY MCV 102.0 80.0 - 98.0 07/11/2014 [facility] HEMATOLOGY MCH 35.3 27.0 - 31.0 07/11/[address] [facility] HEMATOLOGY MCHC 34.6 32.0 - 36.0 07/11/2014 [facility] HEMATOLOGY Hgb 13.6 12.0 - 16.0 07/11/[address] [facility] HEMATOLOGY WBC 8.0 3.7 - 10.4 07/11/2014 [facility] HEMATOLOGY RDW 13.9 11.5 - 14.5 07/11/2014 [facility] HEMATOLOGY MPV 8.3 7.4 - 10.4 07/11/2014 [facility] HEMATOLOGY Platelet 253 133 - 450 07/11/2014 [facility] CARDIAC ENZYMES Troponin-I 0.07 0.00 - 0.40 07/01/2014 [facility] CARDIAC ENZYMES Total CK 66 12 - 191 07/01/2014 [facility] DRUG SCREEN U Cocaine Scr Nega tive *NA* (07/01/14 10:26 AM) Negative 07/01/2014 [facility] DRUG SCREEN U Amph Scr Nega tive *NA* (07/01/14 10:26 AM) Negative 07/01/2014 [facility] DRUG SCREEN U Phencyc Scr Nega tive *NA* (07/01/14 10:26 AM) Negative 07/01/2014 [facility] DRUG SCREEN U Opiate Scr Nega tive *NA* (07/01/14 10:26 AM) Negative 07/01/2014 [facility] DRUG SCREEN U Cannab Scr Posi tive *ABN* (07/01/14 10:26 AM) Negative 07/01/2014 [facility] DRUG SCREEN U Candy Scr Nega tive *NA* (07/01/14 10:26 AM) Negative 07/01/2014 [facility] DRUG SCREEN U Benzodia Scr Nega tive *NA* (07/01/14 10:26 AM) Negative 07/01/2014 [facility] DRUG SCREEN UDS Note See Note 3 (07/01/14 10:26 AM) 07/01/2014 <sup>3</sup>Interpretive Don a: Drugs reported as positive have not been confirmed by a second
method and should be used for medical purposes only. To order
confirmation, contact laboratory.

note: Below are cut-off concentrations for all urine drugs of
abuse performed in the laboratory. Some drugs listed in the table
may not be included in this panel.

Description Cut-off concentration

Ampheta mine 1000 ng/mL
Barbiturates 200 ng/mL
Benzodiazepines 300 ng/mL
Cocaine metabolites 300 ng/mL
Opiates 300 ng/mL
Phencyclidine 25 ng/mL
Propoxyphene 300 ng/mL
Marijuana metabolites 50 ng/mL
Methadone 300 ng/mL&lt ;br/>Urine alcohol 20 mg/dL [facility] CARDIAC ENZYMES Troponin-I 0.10 0.00 - 0.40 07/01/2014 [facility] CARDIAC ENZYMES CK MB <0.5 0.5 - 3.6 07/01/2014 [facility] CARDIAC ENZYMES Total CK 62 12 - 191 07/01/2014 [facility] CARDIAC ENZYMES CK MB Index <0.8 0.0 - 2.5 07/01/2014 [facility] CHEM PANEL eGFR 104 07/01/2014 <sup>1</sup>Result Comment: The eGFR is calculated using the CKD-EPI formula. In most young, healthy individuals the eGFR will be >90 mL/min/1.73m2. The eGFR declines with age. An eGFR of 60-89 may be normal in some populations, particularly the elderly, for whom the CKD-EPI formula has not been extensively validated. Use of the eGFR is not recommended in the following populations:& lt;br/>
Individuals with unstable creatinine concentrations, including patients and those with serious co-morbid conditions.

Patients with extremes in muscle mass or diet.

The data above are obtained from the National Kidney Disease Education Program (NKDEP) which additionally recommends that when the eGFR is used in patients with extremes of body mass index for purposes of drug dosing, the eGFR should be multiplied by the estimated BMI. [facility] CHEM PANEL Globulin 4.4 2.0 - 4.0 07/01/2014 [facility] CHEM PANEL B/C Ratio 12 6 - 25 07/01/2014 [facility] CHEM PANEL AGAP 11.3 10.0 - 20.0 07/01/2014 [facility] CHEM PANEL A/G Ratio 0.8 0.7 - 1.6 07/01/2014 [facility] CHEM PANEL Alk Phos 35 39 - 136 07/01/2014 [facility] CHEM PANEL AST 14 0 - 37 07/01/2014 [facility] CHEM PANEL Bili Total 0.3 0.2 - 1.3 07/01/2014 [facility] CHEM PANEL ALT 15 0 - 65 07/01/2014 [facility] CHEM PANEL Albumin Lvl 3.3 3.5 - 5.0 07/01/2014 [facility] CHEM PANEL Sodium Lvl 140 135 - 145 07/01/2014 [facility] CHEM PANEL BUN 10 7 - 22 07/01/2014 [facility] CHEM PANEL Creatinine Lvl 0.8 0.5 - 1.4 07/01/2014 [facility] CHEM PANEL Glucose Lvl 101 70 - 99 07/01/2014 <sup>2</sup>Interpretive Data: Adult ref erence range values reflect the clinical guidelines
of the [place] [employer]. [facility] CHEM PANEL Total Protein 7.7 6.4 - 8.4 07/01/2014 [facility] CHEM PANEL Potassium Lvl 3.3 3.5 - 5.1 07/01/2014 [facility] CHEM PANEL Chloride Lvl 106 95 - 109 07/01/2014 [facility] CHEM PANEL CO2 26 24 - 32 07/01/2014 [facility] CHEM PANEL Calcium Lvl 8.5 8.5 - 10.5 07/01/2014 [facility] HEMATOLOGY MPV 8.4 7.4 - 10.4 07/01/2014 [facility] HEMATOLOGY Platelet 191 133 - 450 07/01/2014 [facility] HEMATOLOGY Hct 36.5 36.0 - 48.0 07/01/2014 [facility] HEMATOLOGY WBC 5.9 3.7 - 10.4 07/01/2014 [facility] HEMATOLOGY RBC 3.63 4.20 - 5.40 07/01/2014 [facility] HEMATOLOGY Hgb 12.7 12.0 - 16.0 07/01/2014 [facility] HEMATOLOGY MCHC 34.8 32.0 - 36.0 07/01/2014 [facility] HEMATOLOGY RDW 13.6 11.5 - 14.5 07/01/2014 [facility] HEMATOLOGY MCV 100.5 80.0 - 98.0 07/01/2014 [facility] HEMATOLOGY MCH 35.0 27.0 - 31.0 07/01/2014 [facility] HEMATOLOGY Eosinophils # 0.1 0.0 - 0.5 07/01/2014 [facility] HEMATOLOGY Basophils # 0.0 0.0 - 0.2 07/01/2014 [facility] HEMATOLOGY Eosinophils 1.0 0.0 - 4.0 07/01/2014 [facility] HEMATOLOGY Monocytes 5.7 2.0 - 12.0 07/01/2014 [facility] HEMATOLOGY Lymphocytes 31.5 20.0 - 40.0 07/01/2014 [facility] HEMATOLOGY Segs 61.7 45.0 - 75.0 07/01/2014 [facility] HEMATOLOGY Lymphocytes # 1.8 1.0 - 5.5 07/01/2014 [facility] HEMATOLOGY Monocytes # 0.3 0.0 - 0.8 07/01/2014 [facility] HEMATOLOGY Basophils 0.1 0.0 - 1.0 07/01/2014 [facility] HEMATOLOGY Segs-Bands # 3.6 1.5 - 8.1 07/01/2014 [facility] CHEM PANEL Magnesium Lvl 1.8 1.8 - 2.4 07/01/2014 [facility] CARDIAC ENZYMES CK MB Index <0.8 0.0 - 2.5 06/13/2014 [facility] CARDIAC ENZYMES Troponin-I 0.02 0.00 - 0.40 06/13/2014 [facility] CARDIAC ENZYMES CK MB <0.5 0.5 - 3.6 06/13/2014 [facility] CARDIAC ENZYMES Total CK 62 12 - 191 06/13/2014 [facility] CHEM PANEL eGFR 122 06/13/2014 <sup>1</sup>Result Comment: The eGFR is calculated using the CKD-EPI formula. In most young, healthy individuals the eGFR will be >90 mL/min/1.73m2. The eGFR declines with age. An eGFR of 60-89 may be normal in some populations, particularly the elderly, for whom the CKD-EPI formula has not been extensively validated. Use of the eGFR is not recommended in the following populations:& lt;br/>
Individuals with unstable creatinine concentrations, including patients and those with serious co-morbid conditions.

Patients with extremes in muscle mass or diet.

The data above are obtained from the National Kidney Disease Education Program (NKDEP) which additionally recommends that when the eGFR is used in patients with extremes of body mass index for purposes of drug dosing, the eGFR should be multiplied by the estimated BMI. [facility] CHEM PANEL Globulin 4.1 2.0 - 4.0 06/13/2014 [facility] CHEM PANEL Glucose Lvl 95 70 - 99 06/13/2014 <sup>2</sup>Interpretive Data: Adult ref erence range values reflect the clinical guidelines
of the [place] [employer]. [facility] CHEM PANEL Potassium Lvl 3.7 3.5 - 5.1 06/13/2014 [facility] CHEM PANEL Chloride Lvl 110 95 - 109 06/13/2014 [facility] CHEM PANEL Sodium Lvl 141 135 - 145 06/13/2014 [facility] CHEM PANEL Calcium Lvl 8.3 8.5 - 10.5 06/13/2014 [facility] CHEM PANEL BUN 13 7 - 22 06/13/2014 [facility] CHEM PANEL Creatinine Lvl 0.7 0.5 - 1.4 06/13/2014 [facility] CHEM PANEL Total Protein 7.3 6.4 - 8.4 06/13/2014 [facility] CHEM PANEL Albumin Lvl 3.2 3.5 - 5.0 06/13/2014 [facility] CHEM PANEL Bili Total 0.3 0.2 - 1.3 06/13/2014 [facility] CHEM PANEL Alk Phos 32 39 - 136 06/13/2014 [facility] CHEM PANEL B/C Ratio 19 6 - 25 06/13/2014 [facility] CHEM PANEL AST 8 0 - 37 06/13/2014 [facility] CHEM PANEL AGAP 9.7 10.0 - 20.0 06/13/2014 [facility] CHEM PANEL A/G Ratio 0.8 0.7 - 1.6 06/13/2014 [facility] CHEM PANEL ALT 10 0 - 65 06/13/2014 [facility] CHEM PANEL CO2 25 24 - 32 06/13/2014 [facility] HEMATOLOGY Eosinophils 2.8 0.0 - 4.0 06/13/2014 [facility] HEMATOLOGY Monocytes 5.1 2.0 - 12.0 06/13/2014 [facility] HEMATOLOGY Basophils 0.4 0.0 - 1.0 06/13/2014 [facility] HEMATOLOGY Segs-Bands # 3.6 1.5 - 8.1 06/13/2014 [facility] HEMATOLOGY Plt Morph Shanice l (06/13/14 5:00 AM) 06/13/2014 [facility] HEMATOLOGY RBC Morph Shanice l (06/13/14 5:00 AM) 06/13/2014 [facility] HEMATOLOGY Segs 54.2 45.0 - 75.0 06/13/2014 [facility] HEMATOLOGY Lymphocytes 37.5 20.0 - 40.0 06/13/2014 [facility] HEMATOLOGY Basophils # 0.0 0.0 - 0.2 06/13/2014 [facility] HEMATOLOGY Monocytes # 0.3 0.0 - 0.8 06/13/2014 [facility] HEMATOLOGY Lymphocytes # 2.5 1.0 - 5.5 06/13/2014 [facility] HEMATOLOGY Eosinophils # 0.2 0.0 - 0.5 06/13/2014 [facility] HEMATOLOGY Anisocyte 1+ *ABN* (06/13/14 5:00 AM) None Seen 06/13/2014 [facility] HEMATOLOGY D-Dimer 0.38 06/13/2014 <sup>3</sup>Interpretive Data: In DIC, quantitative D-Dimer is generally greater than
0.66 ug/mL FEU. Values of quantitative D-Dimer less than
0.40 ug/mL FEU have been reported to be associated with a low
probability of deep vein thrombosis/pulmonary embolism.
This test alone should not be used to rule out DVT/PE. [facility] HEMATOLOGY WBC 6.6 3.7 - 10.4 06/13/2014 [facility] HEMATOLOGY RBC 3.38 4.20 - 5.40 06/13/2014 [facility] HEMATOLOGY Hgb 11.6 12.0 - 16.0 06/13/2014 [facility] HEMATOLOGY Hct 35.0 36.0 - 48.0 06/13/2014 [facility] HEMATOLOGY Platelet 215 133 - 450 06/13/2014 [facility] HEMATOLOGY MPV 8.2 7.4 - 10.4 06/13/2014 [facility] HEMATOLOGY MCV 103.6 80.0 - 98.0 06/13/2014 [facility] HEMATOLOGY MCH 34.3 27.0 - 31.0 06/13/2014 [facility] HEMATOLOGY RDW 13.3 11.5 - 14.5 06/13/2014 [facility] HEMATOLOGY MCHC 33.1 32.0 - 36.0 06/13/2014 [facility] IMMUNOLOGY CDC HIV 4th GEN Negat dyan (06/13/14 5:00 AM) Negative 06/13/2014 [facility] THYROID PANEL TSH 1.040 0.360 - 3.740 06/13/2014 [facility] Pathology Reports No Data Provided for This Section Diagnostic Reports Report Value Date Source Chest 1view DX Clinical Indica tion: Chest pain. Comparison: None FINDINGS: AP view of the chest submitted for interpretation. Lungs are clear. Heart size is normal. Central pulmonary vasculature appears normal. No effusion. No pneumothorax. No radiographically apparent acute osseous abnormality. IMPRESSION: 1. No radiographically apparent acute ca rdiopulmonary process. SL: [id number] 01/27/2019 [facility] Chest 1view DX Clinical Indica tion: - cp Comparison: November 25, 2016 FINDINGS: The frontal chest radiograph shows normal lung volumes without interstitial or airspace opacities, pleural effusions or pneumothorax. The cardiomediastinal contours are normal. The trachea is midline. There are no clinically significant osseous abnormalities noted. IMPRESSION: No chest radiographic evidence of acute cardiopulmonary disease. SL: [id number] 03/26/2017 [facility] Spine cervical wo contrast CT Clinical Indication: Fell, landed on carpet. Comparison: None Technique: Multi-detector CT imaging of the cervical spine is performed. Coronal and sagittal reconstructions were obtained. CT Radiation Dose DLP 258.92 mGy-cm FINDINGS: ALIGNMENT AND GENERAL ASSESSMENT: Normal alignment of the cervical spine. Prevertebral soft tissues normal. No fracture or spondylolisthesis. Craniocervical junction is normal. Atlantodental-dental alignment appears unremarkable. Posterior elements and spinous processes are unremarkable. The spinolaminar and spinous process alignment are normal. DISK SPACES, SPINAL CANAL, AND NEURAL FORAMINA: C2-C3 to C7-T1 disc space levels show no definite disc protrusions on CT. No central or foraminal stenosis. MRI is the gold standard to assess for disk disease. VISUALIZED LUNG APICES: Mild right apical scarring versus subsegmental atelectasis. Otherwise unremarkable.. SOFT TISSUES OF THE NECK: Within normal limits CT myelogram or MRI of the cervical spine may be performed, if there is further concern. IMPRESSION: 1. No fractures or subluxations of the c ervical spine. SL: [id number] 12/04/2016 [facility] Brain wo contrast CT The image s of this study were reviewed, and I agree with the report provided. Clinical Indication: Fell, landed on carpet Comparison: 09/18/1716 and 09/19/2016 TECHNIQUE: CT images were obtained from the foramen magnum to the vertex without the use of intravenous contrast on a multidetector CT. Coronal and sagittal reconstructions were obtained. CT radiation dose DLP: 1027.46 mGy-cm FINDINGS: BRAIN PARENCHYMA: Normal jackman-white interfaces, sulci and gyri. No focal mass lesions on this noncontrast head CT. No mass effect, midline shift or edema. No intra-axial or extra-axial fluid collections, intraventricular or intraparenchymal hemorrhage. Pineal, brainstem, cerebellum and skull base regions appear unremarkable. Empty sella again noted. Dense calcifications noted along the falx. VENTRICLES: Lateral ventricles, third and fourth ventricles appear unremarkable. Basilar cisterns are normal. ORBITS, MASTOIDS AND PARANASAL SINUSES: -Visualized orbits/retro-orbital spaces are within normal limits. - The paranasal sinuses are unremarkable . The mastoid air cells are clear. SKULL: No acute osseous abnormalities. No focal or asymmetric scalp swelling. If there is further concern for intracranial pathology or acute stroke, MRI of the brain may be performed for complete assessment. IMPRESSION: 1. No acute intracranial abnormality. No mass, hemorrhage, or subacute stroke. : [id number] 12/04/2016 [facility] Spine thoracic 2 views DX Clin ical Indication: - pain post trauma; Comparison: None FINDINGS: The 3 views of the thoracic spine show normal alignment of the thoracic spine. There are no fractures or subluxations. The anterior paraspinal soft tissues are unremarkable. The disc spaces are unremarkable. The visualized posterior elements are unremarkable. The costovertebral junctions are unremarkable. If there is further concern or neurological abnormalities on clinical exam, recommend CT or MRI of the thoracic spine for complete assessment. IMPRESSION: 1. Unremarkable thoracic spine series. SL: [id number] 12/04/2016 [facility] Spine lumbar 2 or 3 views DX C linical Indication: - pain post trauma. Comparison: None FINDINGS: AP, lateral, and spot lateral views of the lumbar spine. Vertebral body heights are maintained without fracture. No pars defects. No spondylolisthesis. Alignment is normal. The disc spaces are normal. The paraspinal soft tissues are unremarkable. There is a large amount of stool within the colon. If there is further concern or neurological abnormalities on clinical exam, MRI or CT of the lumbar spine may be performed for complete assessment. IMPRESSION: Unremarkable lumbar spine series. : [id number] 12/04/2016 [facility] Chest 1view DX Clinical Indica tion: Chest pain - left sided chest pain Comparison: Chest radiograph 09/18/2016. FINDINGS: The frontal chest radiograph shows normal lung volumes without interstitial or airspace opacities, pleural effusions or pneumothorax. The cardiomediastinal contours are normal. The trachea is midline. Electrocardiogram leads project over the chest. There are no clinically significant osseous abnormalities noted. IMPRESSION: No chest radiographic evidence of acute cardiopulmonary disease. SL: RAMIRO 11/25/2016 [facility] Brain wo contrast MRI Patient Name: EVA CHAMPION : 1970; Age: 45 years y/o Female MR: [id number] Study: Brain wo contrast MRI 09/18/2016 11:24 PM CDT Clinical Indication: Ataxia; Comparison: 09/18/2016 TECHNIQUE: Multiplanar noncontrast MRI of the brain is performed on a 3 Sharmila magnet. Contrast: None. FINDINGS: There are patchy FLAIR hyperintensities in the right middle frontal gyrus involving the cortex and white matter as well as sagittal FLAIR hyperintensities and cortical thinning in the posterior medial parietal lobe seen on image 16. No associated restricted diffusion or susceptibility artifacts. These are suspected to be related to old infarct in the watershed distributions. Short interval follow-up with noncontrast MRI to be considered to rule out other abnormalities. The rest of the brain parenchyma is unremarkable for age. The ventricles and basilar cisterns are unremarkable. The deep jackman nuclei and posterior fossa are unremarkable. The craniocervical junction is within normal limits. The cerebellar tonsils terminate above foramen magnum. The paranasal sinuses are clear. Minimal patchy mucosal thickening is seen in the mastoid air cells. IMPRESSION: Small FLAIR hyperintensities in the right middle frontal gyrus as well as bilateral posteromedial parietal lobes may represent areas of gliosis related to prior watershed infarcts. Further assessment with CTA or MRA of the head and neck to be considered. Short interval follow-up with MRI is suggested to rule out other abnormalities. 09/19/2016 [facility] Carotid artery Doppler bilat US Clinical Indication: Transient cerebral ischem Comparison: None TECHNIQUE: Jackman-scale, color Doppler and spectral Doppler of the carotid arteries was performed. Any reported ICA stenoses indirectly reference the distal internal carotid diameter as the denominator for the stenosis measurement, utilizing consensus panel criteria. FINDINGS: RIGHT: No significant plaque. ICA PSV 119 cm/sec CCA PSV 54 cm/sec ICA/CCA ratio 2.2 Vertebral flow is antegrade. External carotid artery is patent. LEFT: No significant plaque. ICA PSV 83 cm/sec CCA PSV 66 cm/sec ICA/CCA ratio 1.26 Vertebral flow is antegrade. External carotid artery is patent. IMPRESSION: 1. No hemodynamically significant steno sis right ICA. 2. No hemodynamically significant steno sis on the left ICA. 3. Mild intimal thickening at the bulb and bifurcation. Consensus panel Doppler US criteria for diagnosis of ICA stenosis: Stenosis (%) ICA PSV (cm/sec) ICA/CCA ratio <50 <125 <2.0 50-69 125-230 2.0-4.0 >70 but less than >230 >4.0 near occlusion Near occlusion High, low, or Variable undetectable SL: [id number] 09/19/2016 [facility] Brain wo contrast CT Study: Franco wing contrast CT 09/18/2016 7:33 PM CDT Ordering Physician: Yamil King Clinical Indication: Headache with Dizziness and Giddiness. 45-year-old with weakness, dizziness and confusion for 2 days. Past medical history significant for TIA, hypertension and hysterectomy. Comparison: None TECHNIQUE: CT images are obtained from the foramen magnum to the vertex on a multidetector CT. Sagittal and coronal reformats are acquired. CT radiation dose DLP: 1213 mGy-cm. FINDINGS: Ventricles, sulci and basal cisterns are within normal limits for age. The jackman- white junction is intact. No encephalomalacic changes are seen. There is no evidence for intracranial mass, mass effect or extra-axial fluid collection. There is no evidence for intracranial hemorrhage. The skull is intact. Visualized paranasal sinuses are clear. Mild inferior right mastoid air cell opacification is present. Orbital structures are grossly unremarkable. IMPRESSION: There is mild inferior right mastoid air cell opacification. CT imaging of the brain without contrast is otherwise unremarkable. SL: [id number] 09/18/2016 [facility] Chest 1view DX Clinical Indica tion: Chest pain - weakness Comparison: 09/04/2016 FINDINGS: Single frontal radiograph of the chest is performed. Heart size is within normal limits. Mediastinal contours are unremarkable. Lungs are clear without infiltrate or mass. No pleural effusion or pneumothorax. No acute osseous abnormality. IMPRESSION: 1. No radiographic evidence for acute pr ocess in the chest. SL: [id number] 09/18/2016 [facility] 1view DX Patient Name: Ilya CHAMPION : 1970; Age: 45 years y/o Female MR: [id number] * CHEST, portable, 1 view HISTORY: Chest pain COMPARISON: 05/16/2016. A study of 02/07/2015 and a chest computed tomography scan of 02/08/2015 were reviewed. TECHNIQUE: A portable frontal radiograph of the chest was obtained. FINDINGS: The lungs are clear. There are no pleural effusions. The heart is normal in size. The regional skeleton is unremarkable. IMPRESSION: 1. No active disease. SL: [id number] 09/04/2016 [facility] w contrast CT Clinical I ndication:45 years Female with Chest pain; shortness of breath and severe fatigue for 2 days, history of FL, multiple cardiac stents Comparison: CT of the chest 02/08/2015 TECHNIQUE: Sequential trans-axial images were obtained thru the chest and upper abdomen after administration of iodinated contrast. Coronal and sagittal reconstructions were obtained. 100 cc of Omnipaque 350 was used for the exam. Dose: DLP = 832 mGy-cm FINDINGS: LUNG PARENCHYMA AND PLEURA: Several 2 to 3 mm pulmonary nodules are unchanged. Minimal right basilar atelectasis. There is no significant interstitial lung disease. There are no pleural effusions. There is no pneumothorax. AIRWAY: The central airway is normal. . MEDIASTINUM: No significant mediastinal lymphadenopathy. HEART: There is no evidence of RV strain. The cardiac chambers are otherwise unremarkable. There is no pericardial effusion. Coronary artery calcifications and stents. VASCULAR STRUCTURES: The pulmonary arteries and great vessels are unremarkable. The thoracic aorta is within normal limits.. The superior vena cava is unremarkable. BONES AND SOFT TISSUES: There are no acute osseous abnormalities seen. VISUALIZED UPPER ABDOMEN: The visualized upper abdomen is within normal limits. IMPRESSION: 1. No acute abnormalities of the chest. No pulmonary embolism. SL: [id number] 05/16/2016 [facility] 1view DX EXAM: XR CHEST 1 VIEW DATE: 05/16/2016 3:07 AM [employer]LECT[employer] INDICATION: Chest pain COMPARISON: 04/21/2015 TECHNIQUE: Frontal chest radiograph FINDINGS: The lungs are clear. The cardiomediastinal silhouette is normal. There is no acute bony abnormality. IMPRESSION: No acute abnormality SL: [id number] 05/16/2016 [facility] Chest 1view DX EXAM: XR CHEST 1 VIEW DATE: 04/21/2015, 2134 hours INDICATION: Chest pain COMPARISON: None TECHNIQUE: Single AP view of the chest DISCUSSION: No pulmonary or pleural based abnormality is identified. The cardiomediastinal silhouette is normal for technique. No acute bony abnormality is identified. IMPRESSION: No acute cardiopulmonary abnormality identified. 04/21/2015 [facility] Chest Pulmonary Embolism CTA EXAM: CTA CHEST PE PROTOCOL WITH CONTRAST. DATE: Feb 08, 2015 02:11:00 AM. INDICATION: Chest pain. COMPARISON: Cta chest abdomen 07/11/2014. TECHNIQUE: Axial imaging of the thorax from the level of the thoracic inlet to the upper abdomen was obtained after IV administration of 91 cc of Omnipaque 350 contrast, in the pulmonary arterial phase. Multiplanar reformatted images were also submitted. Axial MIPPED images were also included. DISCUSSION: The main, right and left main, lobar and segmental pulmonary arteries are normal in caliber without an intraluminal filling defect. Evaluation of some of the subsegmental pulmonary arteries is limited due to poor contrast opacification. A trace right-sided pleural effusion is seen at the right lung base. No consolidative airspace opacity or pneumothorax is seen. A 3 mm nodule within the left upper lobe (series 2, image 30) is unchanged. A 2 mm nodule within the left lower lobe (series 2, image 77) is unchanged. 2 mm triangular nodule is noted within the right middle lobe (series 2, image 60) is also unchanged. The great vessels and branches are unremarkable. Minimal scattered calcifications are noted in the aortic arch. The ascending and descending aorta are normal in caliber. The heart appears normal in size and anatomy. A left circumflex arterial coronary stent is noted. No pericardial effusion is seen. No lymphadenopathy is seen in the axillae and mediastinum. A few calcified right infrahilar lymph nodes are noted. Nodular soft tissue attenuation noted within the prevascular space is unchanged and likely represents prominent thymus tissue. There is no mass effect within this region to suggest an underlying tumor. Visualized portions of the thyroid gland appear normal. No soft tissue or osseous abnormality is seen. Calcified granulomas are noted within the spleen. IMPRESSION: 1. No pulmonary embolism to the segmenta l level. 2. Trace right-sided pleural effusion. 3. Stable 2-3 mm bilateral pulmonary nod ules as described above. 02/08/2015 [facility] Chest 1view DX EXAM: XR CHEST 1 VIEW DATE: 02/07/2015 at 1723 INDICATION: Chest pain COMPARISON: 07/11/2014 at 0824 TECHNIQUE: Single AP view of the chest DISCUSSION: There is blunting of the left costophrenic sulcus, compatible with a small pleural effusion. Linear atelectasis is noted in the lung bases bilaterally. The lungs are otherwise clear. The cardiomediastinal silhouette is normal for technique. No acute bony abnormality is identified. IMPRESSION: 1. Small left-sided pleural effusion noris junaid atelectasis. 2. Bibasilar subsegmental atelectasis. 02/07/2015 [facility] Chest/Abdomen CTA CT ANGIOGRAP HY OF THE CHEST AND ABDOMEN (Aortic dissection protocol). HISTORY: TECHNIQUE: High-resolution (2.5 mm) helical CT images were obtained from the thoracic inlet to the mid pelvis following the dynamic administration of nonionic iodinated intravenous contrast for maximal arterial opacification (CT angiogram technique). 3-D volumetric rotational (obtained on an independent workstation), sagittal and coronal reconstructions were provided. FINDINGS (Vascular): 1. No evidence of aortic aneurysm or dis section. 2. Moderate atherosclerotic changes invo lving the mid and distal abdominal aorta. There are very mild atherosclerotic changes involving the remainder of the aorta. 3. Although this is not a pulmonary embo lism study, the pulmonary arteries are relatively well opacified and there is no evidence of pulmonary embolism. 4. The celiac axis, superior mesenteric artery, and renal arteries are widely patent. There is a moderate stenosis the origin of the inferior mesenteric artery. However, the inferior mesenteric artery is patent. FINDINGS (Non Vascular): 1. No evidence of an active or acute pro cess within the chest. There are no infiltrates or pleural effusions. 2. No mass or adenopathy seen within the chest or abdomen. 3. The heart is normal in size. There is no pericardial effusion. 4. There is no evidence of an acute proc ess within the abdomen. There is no free intraperitoneal gas or intra-abdominal abscess. There is no ascites. 5. Probable mild fatty change involving the liver. The liver is otherwise unremarkable. 6. The spleen, pancreas, and adrenal gla nds are within normal limits. Note is made of calcified granulomas within the spleen. 7. The kidneys are normal in size withou t hydronephrosis. No renal calculi are seen. There is a 1.6 cm right upper pole renal cyst. 8. There is a moderate amount of fecal m aterial within the colon (constipation). The visualized gastrointestinal structures are otherwise unremarkable. Evaluation the gastrointestinal structures is limited due to lack of oral contrast. 9. Small umbilical hernia. There is no h erniation of bowel. SL: 12 Naveed Clark M.D. 07/11/2014 [facility] Chest 1view CXR, portable (1 v iew) HISTORY: Chest pain There are no prior studies available for comparison. FINDINGS: The lungs are clear. There are no pleural effusions. The heart and pulmonary vasculature are within normal limits. The regional skeleton is unremarkable. CONCLUSION: 1. No active disease. Coding: [facility] CPT code: 92426 SL: 12 Naveed Clark M.D. 07/11/2014 [facility] Cardiac SPECT multi studies NM LEXISCAN CARDIOLITE STRESS TEST Stress ECG Results: This patient was stressed by 0.4 mg intravenous LEXISCAN infused over 10 seconds. Resting EKG showed sinus rhythm with a heart rate of 77 beats per minute and elevated to 141 beats per minute after LEXISCAN infusion. The resting blood pressure was 132/68 and elevated to 168/90 which is a hypertensive response. Myocardial Perfusion Imaging: Gated myocardial perfusion SPECT imaging was carried out on stress imaging only with 11 mCi of technetium 99 sestamibi with LEXISCAN at stress. The end-diastolic volume is 47 cc , end-systolic volume is 13 cc , and the calculated EF is 72% . Stress imaging is within normal limits. Conclusions: 1. Normal stress only LEXISCAN technetiu m 99 sestamibi study. 2. Gated perfusion images showed normal left ventricular function with an estimated ejection fraction of 72% . There are no regional wall motion abnormalities. 07/01/2014 [facility] 1view Chest one view: Exam reason: See Clinic Indication Chest pain A few scattered interstitial opacities are noted bilaterally, nonspecific, likely chronic. The cardiac silhouette is normal. Chronic uncoiling of the thoracic aorta is noted. There is no consolidation or pleural fluid collection noted. IMPRESSION: No acute cardiopulmonary process noted. SL:12 07/01/2014 [facility] Chest 1view Chest one view: Exam reason: See Clinic Indication Chest pain The lungs are clear. The cardiomediastinal silhouette is normal accentuated by AP portable technique. No consolidation or pleural fluid collection is noted. IMPRESSION: No acute cardiopulmonary process noted SL:12 06/13/2014 [facility] Consultation Notes No Data Provided for This Section Discharge Summaries No Data Provided for This Section History and Physicals No Data Provided for This Section Vital Signs Vital Sign Value Date Comments Source Heart Rate 72 01/28/2019 [facility] Temperature Oral (F) 97.8 F 01/28/2019 [facility] Systolic (mm Hg) 100 01/28/2019 [facility] Diastolic (mm Hg) 68 01/28/2019 [facility] Respitory Rate 19 01/28/2019 [facility] Respitory Rate 19 01/28/2019 [facility] Systolic (mm Hg) 139 01/28/2019 [facility] Diastolic (mm Hg) 91 01/28/2019 [facility] Temperature Oral (F) 97.7 F 01/28/2019 [facility] Heart Rate 72 01/28/2019 [facility] Height 154.94 cm 01/28/2019 [facility] Respitory Rate 16 01/28/2019 [facility] Heart Rate 75 01/28/2019 [facility] Systolic (mm Hg) 128 01/28/2019 [facility] Diastolic (mm Hg) 86 01/28/2019 [facility] Temperature Oral (F) 98.4 F 01/28/2019 [facility] BMI Calculated 35.29 01/28/2019 [facility] Height 154.94 cm 01/28/2019 [facility] Weight 84.716 01/28/2019 [facility] Weight 84.091 01/28/2019 [facility] BMI Calculated 35.03 01/28/2019 [facility] Height 154.94 cm 01/28/2019 [facility] Weight 81.818 01/28/2019 [facility] Heart Rate 75 03/26/2017 [facility] Respitory Rate 18 03/26/2017 [facility] Temperature Oral (F) 98.6 F 03/26/2017 [facility] Systolic (mm Hg) 122 03/26/2017 [facility] Diastolic (mm Hg) 70 03/26/2017 [facility] Respitory Rate 18 03/26/2017 [facility] Heart Rate 65 03/26/2017 [facility] Temperature Oral (F) 98.0 F 03/26/2017 [facility] Systolic (mm Hg) 134 03/26/2017 [facility] Diastolic (mm Hg) 81 03/26/2017 [facility] Systolic (mm Hg) 133 03/26/2017 [facility] Diastolic (mm Hg) 87 03/26/2017 [facility] Respitory Rate 18 03/26/2017 [facility] Heart Rate 75 03/26/2017 [facility] Temperature Oral (F) 98.0 F 03/26/2017 [facility] Height 157.48 cm 03/26/2017 [facility] Weight 72.727 03/26/2017 [facility] Height 160.02 cm 03/26/2017 [facility] BMI Calculated 28.4 03/26/2017 [facility] Heart Rate 85 12/05/2016 [facility] Respitory Rate 20 12/05/2016 [facility] Systolic (mm Hg) 127 12/05/2016 [facility] Diastolic (mm Hg) 90 12/05/2016 [facility] Weight 70.057 12/05/2016 [facility] Systolic (mm Hg) 135 12/05/2016 [facility] Diastolic (mm Hg) 101 12/05/2016 [facility] Respitory Rate 20 12/05/2016 [facility] Heart Rate 89 12/05/2016 [facility] Temperature Oral (F) 98.3 F 12/05/2016 [facility] Height 157.48 cm 12/05/2016 [facility] BMI Calculated 28.25 12/05/2016 [facility] Systolic (mm Hg) 120 11/26/2016 [facility] Diastolic (mm Hg) 80 11/26/2016 [facility] Respitory Rate 18 11/26/2016 [facility] Heart Rate 64 11/26/2016 [facility] Temperature Oral (F) 98.1 F 11/26/2016 [facility] Systolic (mm Hg) 120 11/26/2016 [facility] Diastolic (mm Hg) 86 11/26/2016 [facility] Heart Rate 60 11/26/2016 [facility] Respitory Rate 18 11/26/2016 [facility] Temperature Oral (F) 97.5 F 11/26/2016 [facility] Respitory Rate 16 11/26/2016 [facility] Heart Rate 54 11/26/2016 [facility] Systolic (mm Hg) 136 11/26/2016 [facility] Diastolic (mm Hg) 84 11/26/2016 [facility] Temperature Oral (F) 97.7 F 11/26/2016 [facility] BMI Calculated 28.59 11/25/2016 [facility] Weight 70.909 11/25/2016 [facility] Height 157.48 cm 11/25/2016 [facility] BMI Calculated 28.35 11/25/2016 [facility] Weight 77.273 11/25/2016 [facility] Height 165.1 cm 11/25/2016 [facility] Temperature Oral (F) 97.9 F 09/19/2016 [facility] Systolic (mm Hg) 155 09/19/2016 [facility] Diastolic (mm Hg) 91 09/19/2016 [facility] Respitory Rate 18 09/19/2016 [facility] Systolic (mm Hg) 120 09/19/2016 [facility] Diastolic (mm Hg) 73 09/19/2016 [facility] Respitory Rate 18 09/19/2016 [facility] Temperature Oral (F) 98.1 F 09/19/2016 [facility] BMI Calculated 31.95 09/19/2016 [facility] Height 152.4 cm 09/19/2016 [facility] Weight 74.205 09/19/2016 [facility] Temperature Oral (F) 97.8 F 09/19/2016 [facility] Respitory Rate 18 09/19/2016 [facility] Systolic (mm Hg) 150 09/19/2016 [facility] Diastolic (mm Hg) 87 09/19/2016 [facility] Height 157.48 cm 09/18/2016 [facility] Heart Rate 75 09/18/2016 [facility] Weight 81.818 09/18/2016 [facility] BMI Calculated 32.99 09/18/2016 [facility] Temperature Oral (F) 98.5 F 09/05/2016 [facility] Heart Rate 94 09/05/2016 [facility] Respitory Rate 18 09/05/2016 [facility] Systolic (mm Hg) 138 09/05/2016 [facility] Diastolic (mm Hg) 83 09/05/2016 [facility] Respitory Rate 18 09/04/2016 [facility] Systolic (mm Hg) 128 09/04/2016 [facility] Diastolic (mm Hg) 83 09/04/2016 [facility] Heart Rate 94 09/04/2016 [facility] Temperature Oral (F) 98.5 F 09/04/2016 [facility] Temperature Oral (F) 98.7 F 09/04/2016 [facility] Heart Rate 69 09/04/2016 [facility] Respitory Rate 18 09/04/2016 [facility] Systolic (mm Hg) 148 09/04/2016 [facility] Diastolic (mm Hg) 82 09/04/2016 [facility] Height 154.94 cm 09/04/2016 [facility] BMI Calculated 31.64 09/04/2016 [facility] Weight 75.966 09/04/2016 [facility] Weight 65.909 09/04/2016 [facility] Height 154.94 cm 09/04/2016 [facility] BMI Calculated 27.45 09/04/2016 [facility] Systolic (mm Hg) 127 05/18/2016 [facility] Diastolic (mm Hg) 81 05/18/2016 [facility] Respitory Rate 18 05/18/2016 [facility] Heart Rate 84 05/18/2016 [facility] Temperature Oral (F) 97.9 F 05/18/2016 [facility] Systolic (mm Hg) 129 05/18/2016 [facility] Diastolic (mm Hg) 80 05/18/2016 [facility] Heart Rate 91 05/18/2016 [facility] Respitory Rate 18 05/18/2016 [facility] Temperature Oral (F) 98 F 05/18/[address] [facility] Respitory Rate 18 05/18/[address] [facility] Heart Rate 75 05/18/2016 [facility] Systolic (mm Hg) 113 05/18/2016 [facility] Diastolic (mm Hg) 71 05/18/[address] [facility] Temperature Oral (F) 97.7 F 05/18/[address] [facility] BMI Calculated 27.87 05/16/2016 [facility] Height 154.94 cm 05/16/2016 [facility] Weight 66.903 05/16/2016 [facility] Weight 77.273 05/16/2016 [facility] BMI Calculated 27.5 05/16/2016 [facility] Height 167.64 cm 05/16/2016 [facility] Systolic (mm Hg) 123 04/24/2015 [facility] Diastolic (mm Hg) 62 04/24/2015 [facility] Respitory Rate 18 04/24/2015 [facility] Temperature Oral (F) 97.6 F 04/24/2015 [facility] Heart Rate 71 04/24/2015 [facility] Heart Rate 68 04/24/2015 [facility] Temperature Oral (F) 97.8 F 04/24/2015 [facility] Systolic (mm Hg) 108 04/24/2015 [facility] Diastolic (mm Hg) 75 04/24/2015 [facility] Respitory Rate 18 04/24/2015 [facility] Respitory Rate 18 04/24/2015 [facility] Systolic (mm Hg) 123 04/24/2015 [facility] Diastolic (mm Hg) 81 04/24/2015 [facility] Heart Rate 68 04/24/2015 [facility] Temperature Oral (F) 98 F 04/24/2015 [facility] Weight 66.364 04/22/2015 [facility] BMI Calculated 27.2 04/22/2015 [facility] Height 156.21 cm 04/22/2015 [facility] Height 154.94 cm 04/22/2015 [facility] BMI Calculated 27.45 04/22/2015 [facility] Weight 65.909 04/22/2015 [facility] Temperature Oral (F) 98.4 F 02/11/2015 [facility] Systolic (mm Hg) 134 02/11/2015 [facility] Diastolic (mm Hg) 89 02/11/2015 [facility] Systolic (mm Hg) 148 02/11/2015 [facility] Diastolic (mm Hg) 87 02/11/2015 [facility] Temperature Oral (F) 98.2 F 02/11/2015 [facility] Systolic (mm Hg) 117 02/11/2015 [facility] Diastolic (mm Hg) 81 02/11/2015 [facility] Temperature Oral (F) 98.0 F 02/11/2015 [facility] Respitory Rate 26 02/11/2015 [facility] Respitory Rate 17 02/10/2015 [facility] Height 154.94 cm 02/08/2015 [facility] Weight 71.023 02/08/2015 [facility] BMI Calculated 29.59 02/08/2015 [facility] Weight 68.182 02/07/2015 [facility] Height 154.94 cm 02/07/2015 [facility] BMI Calculated 28.4 02/07/2015 [facility] Heart Rate 73 02/07/2015 [facility] Respitory Rate 19 07/14/2014 [facility] Diastolic (mm Hg) 70 07/14/2014 [facility] Systolic (mm Hg) 107 07/14/2014 [facility] Respitory Rate 23 07/14/2014 [facility] Systolic (mm Hg) 112 07/14/2014 [facility] Diastolic (mm Hg) 79 07/14/2014 [facility] Respitory Rate 16 07/14/2014 [facility] Systolic (mm Hg) 114 07/14/2014 [facility] Diastolic (mm Hg) 73 07/14/2014 [facility] Temperature Oral (F) 98.5 F 07/14/2014 [facility] Temperature Oral (F) 98.3 F 07/14/2014 [facility] Weight 86.051 07/14/2014 [facility] Temperature Oral (F) 98.1 F 07/14/2014 [facility] Weight 72.727 07/13/2014 [facility] Weight 70.994 07/12/2014 [facility] BMI Calculated 29.57 07/12/2014 [facility] Height 154.94 cm 07/12/2014 [facility] Heart Rate 75 07/12/2014 [facility] Heart Rate 60 07/12/2014 [facility] Heart Rate 52 07/12/2014 [facility] Height 154.94 cm 07/12/2014 [facility] BMI Calculated 30.29 07/12/2014 [facility] Systolic (mm Hg) 144 07/11/2014 [facility] Respitory Rate 18 07/11/2014 [facility] Diastolic (mm Hg) 82 07/11/2014 [facility] Respitory Rate 18 07/11/2014 [facility] Diastolic (mm Hg) 97 07/11/2014 [facility] Systolic (mm Hg) 143 07/11/2014 [facility] Respitory Rate 20 07/11/2014 [facility] Systolic (mm Hg) 126 07/11/2014 [facility] Diastolic (mm Hg) 76 07/11/2014 [facility] Temperature Oral (F) 97.3 F 07/11/2014 [facility] Heart Rate 61 07/11/2014 [facility] Height 154.94 cm 07/11/2014 [facility] BMI Calculated 30.29 07/11/2014 [facility] Weight 72.727 07/11/2014 [facility] Diastolic (mm Hg) 90 07/01/2014 [facility] Respitory Rate 20 07/01/2014 [facility] Systolic (mm Hg) 134 07/01/2014 [facility] Diastolic (mm Hg) 93 07/01/2014 [facility] Respitory Rate 14 07/01/2014 [facility] Systolic (mm Hg) 109 07/01/2014 [facility] Diastolic (mm Hg) 84 07/01/2014 [facility] Systolic (mm Hg) 124 07/01/2014 [facility] Respitory Rate 19 07/01/2014 [facility] Temperature Oral (F) 97.1 F 07/01/2014 [facility] Heart Rate 92 07/01/2014 [facility] Height 167.64 cm 07/01/2014 [facility] BMI Calculated 25.07 07/01/2014 [facility] Weight 70.455 07/01/2014 [facility] Systolic (mm Hg) 156 06/13/2014 [facility] Diastolic (mm Hg) 133 06/13/2014 [facility] Respitory Rate 16 06/13/2014 [facility] Respitory Rate 16 06/13/2014 [facility] Heart Rate 76 06/13/2014 [facility] Diastolic (mm Hg) 106 06/13/2014 [facility] Temperature Oral (F) 98.2 F 06/13/2014 [facility] Systolic (mm Hg) 162 06/13/2014 [facility] Height 154.94 cm 06/13/2014 [facility] BMI Calculated 30.29 06/13/2014 [facility] Weight 72.727 06/13/[address] [facility] Systolic (mm Hg) 183 03/01/2014 [facility] Respitory Rate 18 03/01/2014 [facility] Diastolic (mm Hg) 111 03/01/2014 [facility] Heart Rate 60 03/01/2014 [facility] Temperature Oral (F) 97.6 F 03/01/2014 [facility] Temperature Oral (F) 98.9 F 03/01/2014 [facility] Heart Rate 66 03/01/2014 [facility] Respitory Rate 20 03/01/2014 [facility] Diastolic (mm Hg) 120 03/01/2014 [facility] Systolic (mm Hg) 217 03/01/2014 [facility] Height 154.94 cm 03/01/2014 [facility] BMI Calculated 28.02 03/01/2014 [facility] Weight 67.273 03/01/2014 [facility] Temperature Oral (F) 98.2 F 03/01/2014 [facility] Respitory Rate 18 03/01/2014 [facility] Diastolic (mm Hg) 121 03/01/2014 [facility] Heart Rate 69 03/01/2014 [facility] Systolic (mm Hg) 217 03/01/2014 [facility] Encounters Location Location Details Encounter Type Encounter Number Reason For Visit Attending Provider ADM Date DC Date Status Source [facility] [id number] Fransisco Trevino 0 01/20/2014 01/20/2014 [facility] Emergency Center [id number] Tito Jacobs 03/01/2014 03/01/2014 [facility] Emergency Center [id number] Woodrow Ortega 06/13/2014 06/13/2014 [facility] OBS Observation Patient [id number] Alize Esposito 07/01/2014 07/02/2014 [facility] Emergency Center [id number] Glenda Tejada 07/11/2014 07/11/2014 [facility] Inpatient [id number] Christy Worthington 07/12/2014 07/14/2014 [facility] Inpatient [id number] John Cashgomery 02/07/2015 02/11/2015 [facility] OBS Observation Patient [id number] January Salazar 04/22/2015 04/24/2015 [facility] Inpatient [id number] Cris Pete 05/16/2016 05/18/2016 [facility] Observation [id number] Neil Morris 09/04/2016 09/05/2016 [facility] Observation [id number] Guillermo Gentile 09/18/2016 09/19/2016 [facility] Observation [id number] Rishi Sánchez II 11/25/2016 11/26/2016 [facility] [id number] Tito Huffman 12/05/2016 12/05/2016 [facility] Observation [id number] Tito Huffman 03/26/2017 03/26/2017 [facility] Phone Message [id number] 06/20/2017 06/22/[address] [facility] Observation [id number] Antolin Mccullough 01/28/2019 01/29/2019 [facility] Procedures Procedure Code Date Perfomer Comments Source Cardiac catheterisation, right heart [id number] [facility] section [id number] Crissy Reyes,[facility] Hysterectomy [id number] Crissy Reyes,[facility] Stent placement [id number] Crissy Reyes,[facility] Tonsillectomy [id number] [facility] Tubal ligation [id number] [facility] Assessment and Plan Assessment and Plan Date Source Extracted from:Title: History and Physic al Author: Cris Platt MD Date: 01/27/19 48 yo with 1.Acute chest pain(R07.9) 2.Hypertension(I10) Will rule out ACS overnight with serial troponins. Monitor patient on telemetry. Patient given aspirin in the ER. Currently EKG andtroponin negativefor FL. Will monitor patient's vital signs closely. Patient alsoneeds social work consultfor stressful situation at home. Patient currently listed as no info. 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 w chronic stable angina, follows w outside heavy equipment operator apprentice. ACS ruled out. Normal LVEF. No arrythmia. -Prior cath described has chronic microv ascular disease, not amenable to PCI w patent stents -Cont her current optimal regimen for CA D and stable angina, follow up with her outpatient heavy equipment operator apprentice BERE for RENUKA from cardiology standpoint Thank You, Shaun Aaron MD, [facility] 11/26/2016 Cyndy Extracted from:Title: Discharge Summary * Author: Sarah Guillory MD Date: 09/04/16 Discharge Information Discharge Plan Discharge Summary Plan Discharge disposition: discharge to home. Diagnosis 1. Chest pain - non cardiac 2. allergic rhinitis 3. Hypertension 4. Hyperlipidemia. Extracted from:Title: Cardiology Consultation Author: Pepe Clemente MD Date: 09/04/16 Full Consult Note dictated [id number] Addendum by Yves Clemente MD on 09/04/2016 15:51 Lexiscan stress test done. No ischemia seen gated EF >70%. from cardiac [facility], pt may d/c home if last set of CE if negative 09/05/2016 CHACORTA Naylor Extracted from:Title: Consult Note Author: Virginia Fuchs MD Date: 05/17/16 Assessment/Plan A 45-year-old -[place] woman with past medical history significant for hypertension, hyperlipidemia, sickle cell trait, coronary artery disease who is admitted for shortness of breath and chest pain. The patient had an episode of unresponsiveness and staring spell early this morning while she was intubated by her primary physician. Neurology was consulted for evaluation of possible seizure. Her episodes were observed by me personally and can be described as unresponsiveness for few seconds with eyes open and tracking in different directions. She blinks to visual threats during the episode. I discussed her case with the primary physician. Her events are very unlikely to be due to seizure activity. I reassured the patient. No further neurological intervention is needed at this time. Recommend continue with medical management per primary team. Thank you. I have no further recommendation at this point. Please call with questions. 05/18/2016 [facility] Extracted from:Title: Hospitalist Kim Note Author: Denia Morris MD Date: 04/23/15 Assessment/Plan 1.Unstable angina Repeat EKG nsr, trop neg on telemetry NSR. However paperwork from [employer] show LAD resolute stent placed 02/24/15. Cards consulted as w/persistent chest pain cannot do stress test. Echo no new wma. Planned cath per cards. 2.Coronary artery disease continue asa, plavix, statin. Start heparin drip 2/2 concern for unstable angina 3.Hypertension controlled on metoprolol 4.Anxiety currently not on meds as oupt, will need close follow up Prophylaxis heparin drip Disposition pending ACS eval by cardiology Hospitalist is primary please page [phone] with questions/concerns 04/24/2015 [facility] Extracted from:Title: Discharge Summary Author: Heike Sandoval NP Date: 02/11/15 PATIENT NAME: EVA CHAMPION ATTENDING PHYSICIAN: JOHN RILEY DATE OF ADMISSION: 02/07/2015 DATE OF DISCHARGE: 02/11/2015 *_*_* ATTENDING PHYSICIAN: Dr. John Riley. SERVICE: Cardiology. ADMITTING DIAGNOSES: 1. Chest pain. 2. Anxious features with frustration an d possible paranoid ideations. 3. Dizziness and bilateral lower extrem ity weakness. 4. History of coronary artery disease w ith previous PCI. 5. History of hypertension. 6. History of hyperlipidemia. 7. History of smoking abuse and history of marijuana abuse as well. 8. Positive urine THC on admission. 7. History of non-ST elevation FL. DISCHARGE DIAGNOSES: 1. Chest pain. 2. Anxious features with frustration an d possible paranoid ideations. 3. Dizziness and bilateral lower extrem ity weakness. 4. History of coronary artery disease w ith previous PCI. 5. History of hypertension. 6. History of hyperlipidemia. 7. History of smoking abuse and history of marijuana abuse as well. 8. Positive urine THC on admission. 7. History of non-ST elevation FL. ALLERGIES: She has no known drug allergy. PROCEDURES DONE DURING CURRENT HOSPITAL: None. CONSULTING SERVICES DURING CURRENT HOSPITALIZATION: Isael Reagan MD Office: Service: Psychiatry. Jude Fernandez MD Office: Service: Psychiatry. Reid Arrieta MD Office: Service: Hematology. DIAGNOSTIC TESTS DONE DURING CURRENT HOSPITALIZATION: 1. Chest x-ray done on 02/07/2015 that s howed small left pleural effusion versus atelectasis. There is bibasilar subsegmental atelectasis. 2. CTA of the chest done on 02/08/2015 t [facility] showed no pulmonary embolism to the segmental level and trace right-sided pleural effusion and there is a stable 2 to 3-mm bilateral pulmonary nodule. HOSPITAL COURSE SUMMARY: The patient is a 71-year-old female well known to Dr. Riley's service with past medical history of coronary artery disease, history of stent to the left circumflex lesion in 06/2014. Patient also with a history of hypertension, history of hyperlipidemia. Of note, patient had a recent non-ST segment elevation myocardial infarction and coronary angiogram done on 06/2014 at [facility] and they attempted to the right coronary artery was unsuccessful, it was chronic total occlusion. Patient had a percutaneous intervention of the left circumflex was successfully performed at that time with a stent placed. The patient has been on aspirin and Plavix since then. The patient stated that she has been in her usual state of health. She has been having in and out chest pain. She stated on presentation 02/07/2015 that her chest pain has been sharp, knife-like sensation, and pain worse with palpation and respirations. She has been using nitro and most of the time nitro was not helping her. Patient has a total of 3 sets of cardiac enzymes that were unremarkable. Her EKG on presentation showed showed small Q-waves inferiorly and nonspecific ST-T wave abnormalities in the inferior leads. Otherwise, no significant abnormalities. Acute coronary syndrome was ruled out. Patient also has a CT scan of the chest was done and was negative for pulmonary embolism and stable 2-3 mm bilateral pulmonary nodules, she was advised by Dr. Riley to follow up with her PCP on her pulmonary nodule. Patient was found to have positive marijuana urine test, though she is denying smoking marijuana since 05/2014, social workers was consulted for drug abuse resources and for discharge assistance. Her blood pressure medication has been adjusted during hospitalization with improvement of her blood pressure readings. During her hospitalization, the patient was also seen by hematology service for her anemia and high MCV. Patient vitamin B12 and folic acid checked and was unremarkable. Patient is a ryan to follow up with [facility] hematology clinic. During hospitalization, patient complained of dizzines and billateral lower extrmity weakness, PT and cardiac rehab consulted. [facility] neurology consulted who evaluated patient and believed that patient dizness and weakness is related t psychatric component. Patient also had several incident with aggressive behavior with the staff. [facility] psych consulted who believed that patient exhibits elements known to be consistent with yehuda, but it is not clear if this is a fully- fledged bipolar phenomenon. A trial of mood stabilizer recommended, however the patient declined and there does not appear to be enough indication to force treatment. She was advised by [facility] psych to follow as outpatient. On 02/11/2015, patient was evaluated by Dr. Riley, who explained to the that her condition no longer warrents hospitalization and that she is not a candidate for CABG at present time. She reported to Dr. Riley on the day of discharge that she was able to walk without assistance. She was instructed by Dr. Riley to follow up with his office in 1 month with current below medication. DISCHARGE TEACHING DIET: AHA. FOLLOWUP: 1. The patient instructed to follow up with Dr. Rliey in 1 month. 2. Follow up with the primary care dalia jack in 1 week. 3. Follow up with [facility] hematology, Dr. Sydnee hayden in about 4 weeks. 4. Follow up with [facility] psychaitry for cou magueling. DISCHARGE MEDICATIONS: Please see Care4 for medication reconciliation at discharge. 1. Lipitor 20 mg 1 tablet p.o. at bedti pa. 2. Amlodipine 10 mg 1 tablet daily. 3. Aspirin 81 mg daily. 4. Coreg 25 mg p.o. q. 12 hours. 5. Plavix 75 mg p.o. daily. 6. Isosorbide mononitrate 60 mg extende d release 1 tablet p.o. daily. 7. Nitroglycerin 0.4 mg sublingual as n eeded for chest pain. ACTIVITIES: As tolerated. No strenuous activity. Call M.D./911. Patient instructed by Dr. Riley to call if having chest pain, shortness of breath, weight gain more than 3 pounds per week, dizziness with palpitation, fever, chills, nausea, vomiting, orthopnea or chest pain. SMOKING CESSATION COUNSELING: The patient denying she is a smoker. She has a positive marijuana test. Patient was counseled for smoking at discharge. She was given smoking cessation advice on discharge as well by Dr. Riley. DISCHARGE DISPOSITION: Home with home health. DISCHARGE STATUS: Stable. DISCHARGE CODE STATUS: Full code. CORE MEASURES: Please see core measure discharge form in the chart. Patient is not a core measure patient. She has a normal ejection fraction and echocardiogram was done during previous hospitalization 06/2014 showed left ventricular ejection fraction of 65%. Patient will not be discharged on JOANNE inhibitor and ARBs at this time. She has a normal ejection fraction. JOANNE inhibitors and ARBs will be evaluated as an outpatient and will be started if deemed necessary by Dr. Riley. Patient will be discharged on beta blockers. Core measure discharge instruction given by Dr. Riley included weight monitoring, activity level, followup appointment, AHA diet, instruction of symptoms worsening and medication reconciled. All above discharge plan above discussed in details by Dr. Riley to the patient. Heike Sandoval, MSN, PROGRAM EVALUATOR, ACNP-BC, ANP-BC, SUPERVISOR [employer] DEPARTMENT-C Department of Cardiology Pager# [phone] MSO# [id number] Extracted from:Title: Psychiatry Consult Author: Isael Reagan MD Date: 02/10/15 PSYCHIATRY CONSULT PROGRESS NOTE Chief Complaint: frustration, lability Patient seen initially by psychiatry 02/09/15, full details available in EMR note. Asked for reassessment of psychiatric treatment and disposition needs. Per primary, patient has continued to demonstrate anxious features with frustration and possible paranoid ideations. On this assessment, patient found sitting up on side of bed, was initially visibly frustrated but ultimately cooperated. Reported discontent with aspects of medical care. Consistent with initial consult on 02/09/15, patient was hypertalkative and did appear to demonstrate some potential grandiosity and overinclusivity vs flight of ideas. Speech was not frankly pressured to me as it was interruptible, and no gross distractability or disorganization was noted. No SI/HI. No AH/VH, no overt delusions or paranoia noted this assessment. Review of Systems: Constitutional - Denies fatigue Neurologic - No gross abnormal movements Psychiatric - See above Medications (13) Active Scheduled Meds (9): 02/08/15 amLODIPine (Norvasc) 5 mg PO Da amrit 02/08/15 aspirin 81 mg PO Daily 02/09/15 atorvastatin (Lipitor) 20 mg PO Bedtime 02/08/15 carvedilol 12.5 mg PO Q12H 02/08/15 clopidogrel 75 mg PO Daily 02/08/15 docusate (Colace 100 mg oral ca psule) 100 mg PO BID 02/09/15 heparin 5,000 unit SUB-Q Q8H 02/08/15 isosorbide mononitrate 60 mg PO Daily 02/08/15 senna 17.2 mg PO Daily Unscheduled Meds: None PRN Meds (4): 02/10/15 acetaminophen (Tylenol) 650 mg PO Q6H 02/09/15 nitroglycerin (nitroglycerin 0. 4 mg sublingual tablet) 0.4 mg SL Q5Min 02/08/15 ondansetron (Zofran) 4 mg PO Q8 H 02/07/15 sodium chloride (Saline Flush 0 .9%) 10 mL IVP PRN One Time Meds: None Continuous Infusions: None Mental Status Examination: General - Fair engageability, good eye contact, good grooming and hygiene, dressed in casual clothing, clothes neat and clean, hair neatly brushed Musculoskeletal - No gross abnormal movements Speech - Hypertalkative, frustration to tone at times Thought Process - Overinclusive, no owen distractability, no gross disorganization, able to be redirected Thought Content - No overt delusions or paranoia, no suicidal or homicidal ideations Perception - No auditory/visual hallucinations Mood/Affect - frustrated/congruent Insight/Judgment - appears limited Cognitive - Alert, no gross disorientation, fair attention/memory/fund, no gross deficit in abstracting ability Vitals Tmp(F) Pulse BP RR SpO2 FIO2 02/10 15:00 ---- 90 ----- 17 --- --- 02/10 14:00 ---- 82 134/95 1 8 --- --- 02/10 13:00 ---- 78 128/95 1 8 --- --- 02/10 12:00 ---- 74 ----- 17 --- --- 02/10 11:00 ---- 74 102/61 1 9 --- --- 24 Hr Tmax: 98.3F (36.83c) at 02/09 20:1 9 Vital Signs are the last 5 in the past 48 hours. 24hr Labs 02/10 0520 Glucose Lvl 90 BUN 9 Creatinine Lvl 0.6 Sodium Lvl 141 Potassium Lvl 3.9 Chloride Lvl 111 H CO2 21 L AGAP 12.9 Calcium Lvl 8.7 eGFR 127 Magnesium Lvl 2.0 Phosphorus 3.9 WBC 5.6 RBC 3.73 L Hgb 13.5 Hct 39.3 MCV 105.3 H MCH 36.1 H MCHC 34.3 RDW 14.9 H Platelet 177 MPV 8.8 Segs 38.7 L Monocytes 8.6 Lymphocytes 50.3 H Eosinophils 2.0 Basophils 0.4 Segs-Bands # 2.2 Lymphocytes # 2.8 Monocytes # 0.5 Eosinophils # 0.1 Macrocyte 1+ Assessment: Mood disorder NOS and anxiety disorder NOS, preliminary Recommendations: I agree with Dr. Fernandez's initial assessment that the patient exhibits elements known to be consistent with yehuda, but it is not clear if this is a fully- fledged bipolar phenomenon. I would be in general agreement with and support of a trial of mood stabilizer, however the patient again declined and there does not appear to be enough indication to force treatment. I discussed the option of outpatient followup with psychiatry and provided patient with printed contact information for the [facility] psychiatry clinic. She accepted the information and said she would consider calling for counseling. Thank you for allowing the opportunity to participate in this patient's care. Please call with any questions. Isael Reagan M.D. [phone] Extracted from:Title: Hematology Consultation Author: Christian Bernstein MD Date: 02/08/15 Patient: EVA CHAMPION Age: 44 years Sex: Female : 1970 Associated Diagnoses: None Author: Christian Bernstein MD Basic Information Source of history: Self. Chief Complaint 02/07/2015 22:40 Chest Pain 02/07/2015 13:33 chest pain, dizziness, nausea, blurred vision for three days. hx of mi, htn, coronary stents. pt reports taking NTG before arrival and had a little relief History of Present Illness Mrs. Champion is a 44 yo female with history of reported sickle-cell trait, CAD with NSTEMI/stent placement, HTN, HLD, who presented with chest pain. The patient reports that she has a history of NSTEMI - and per prior notes it appears she had troponin elevation with some degree of coronary artery occlusion requiring stenting. She endorses a personal history of sickle cell trait and reports having one cousin with sickle cell disease. She has several half- siblings, but none with SS disease. She has not been hospitalized or treated from symptoms related to her sickle cell trait. She does reports a history of anemia and has been treated with iron in the past. She did have heavy periods for a few years in her late 30s, but is s/p hysterectomy ~6 years ago. No other sources of blood loss/bleeding history. She also endorses some possible neurological disorder such as MS, but it sounds as though the diagnosis is not confirmed and her outside neurologist has not finished work-up. She presented overnight with fatigue, LH, CP, SOB symptoms and was admitted for cardiac work-up. Hematology was consulted for elevated MCV. Review of Systems Constitutional: Fatigue. Eye: Negative. Ear/Nose/Mouth/Throat: Negative. Respiratory: Shortness of breath. Cardiovascular: Chest pain: Midsternal. Gastrointestinal: Negative. Genitourinary: Negative. Hematology/Lymphatics: Negative. Endocrine: Negative. Immunologic: Negative. Musculoskeletal: Negative. Integumentary: Negative. Neurologic: Negative. Psychiatric: Negative. Health Status Allergies: Allergic Reactions (All) Severity Not Documented NKDA- No reactions were documented., Allergies (1) Active Reaction NKDA None Documented Current medications: (Selected) Inpatient Medications Ordered Colace 100 mg oral capsule: 100 mg, 1 cap, PO, BID Heparin 30 unit/kg Bolus (Heparin Dosing Weight): 1,700 unit, 1.7 mL, IVP, PRN, PRN: Heparin Protocol Heparin 60 unit/kg Bolus (Heparin Dosing Weight): 3,400 unit, 3.4 mL, IVP, PRN, PRN: Heparin Protocol Norvasc: 10 mg, 1 tab, PO, Daily Saline Flush 0.9%: 10 mL, IVP, PRN, PRN: Line Flush Zofran: 4 mg, 1 tab, PO, Q8H, PRN: Nausea aspirin: 81 mg, 1 tab, PO, Daily atorvastatin: 80 mg, 1 tab, PO, Bedtime carvedilol: 25 mg, 1 tab, PO, Q12H clopidogrel: 75 mg, 1 tab, PO, Daily heparin: 5,000 unit, 1 mL, SUB-Q, Q8H isosorbide mononitrate: 60 mg, 1 tab, PO, Daily morphine Sulfate: 4 mg, 1 mL, IVP, Q4H, PRN: Chest Pain normal saline 0.9% IV 1,000 mL: 150 ml/hr, IV, Stop: 03/10/15 1:06:00 senna: 17.2 mg, 2 tab, PO, Daily Documented Medications Suspended Norvasc 10 mg oral tablet: 10 mg, 1 tab, PO, Daily, 0 Refill(s) aspirin: 81 mg, PO, Daily, 0 Refill(s) carvedilol 12.5 mg oral tablet: 12.5 mg, 1 tab, PO, BID, 0 Refill(s) clopidogrel 75 mg oral tablet: 75 mg, 1 tab, PO, Daily, 0 Refill(s) isosorbide mononitrate: 30 mg, PO, Daily, 0 Refill(s) nitroglycerin: 0.4 mg, SL, PRN, 0 Refill(s), Medications (15) Active Scheduled: (9) amLODIPine 10 mg TAB 10 mg 1 tab, PO, Daily aspirin 81 mg CHEW TAB 81 mg 1 tab, PO, Daily atorvastatin 80mg tab 80 mg 1 tab, PO, Bedtime carvedilol 25 mg TAB 25 mg 1 tab, PO, Q12H clopidogrel 75 mg TAB 75 mg 1 tab, PO, Daily docusate sodium 100 mg CAP 100 mg 1 cap, PO, BID heparin 5000 unit/1 ml INJ VL 5,000 unit 1 mL, SUB-Q, Q8H isosorbide mononitrate 60 mg ERT 60 mg 1 tab, PO, Daily senna 8.6 mg TAB 17.2 mg 2 tab, PO, Daily Continuous: (1) sodium chloride 0.9% 1000 ml INJ 1,000 mL 1,000 mL, IV, 150 ml/hr PRN: (5) heparin 1000 unit/1ml 10 ml INJ VL 3,400 unit 3.4 mL, IVP, PRN heparin 1000 unit/1ml 10 ml INJ VL 1,700 unit 1.7 mL, IVP, PRN MORPhine sulfate PF 4 mg/ml CARP 4 mg 1 mL, IVP, Q4H ondansetron 4 mg TAB 4 mg 1 tab, PO, Q8H sodium chloride 0.9% 5 ml flush syr BD 10 mL, IVP, PRN Problem list: All Problems Dental caries / SNOMED CT [id number] / Confirmed Hypertension / SNOMED CT [id number] / Confirmed, Active Problems (2) Dental caries Hypertension Histories Past Medical History: Active Hypertension ([id number]) Dental caries ([id number]) Resolved Abdominal hysterectomy (113062039): Resolved. H/O tubal ligation ([id number]): Resolved. History of tonsillectomy (9163367298): Resolved. section (): Resolved. FL (myocardial infarction) ([id number]): Resolved. Sickle cell trait (02251916): Resolved. Coronary atherosclerosis ([id number]): Resolved. Angina (934443982): Resolved. Pulmonary embolus ([id number]): Resolved. Family History: Heart disease Father Mother Procedure history: Hysterectomy (454083002). section (). Stent placement (604043176). Social History Social and Psychosocial Habits Substance Abuse 07/11/2014 Use: Current Type: Marijuana Route Inhaled IV drug use: No Has drug use interfered with your work or home life? No Ready to change: No Concerns about substance abuse in household: No Drug Cessation Education Provided No Tobacco 02/07/2015 Use: Never smoker Type: Cigarettes Previous treatment: None Exposure to Tobacco Smoke None Cigarette Smoking Last 365 Days No Reg Smoking Cessation Counseling No 02/07/2015 Use: Never smoker Exposure to Tobacco Smoke None Cigarette Smoking Last 365 Days No Reg Smoking Cessation Counseling No . Physical Examination VS/Measurements Measurements from flowsheet : Measurements 02/08/2015 03:31 Weight Collection Method Measured Current Weight 70.909 kg 02/07/2015 22:40 Heparin Dosing Weight (kg) 57.09 02/07/2015 22:25 Height 154.94 cm Height Collection Method Stated Weight 71.023 kg Dosing Weight Difference Percent 4.167 % Dosing Weight Collection Method Measured Body Surface Area 1.7484 m2 Body Mass Index 29.59 m2 02/07/2015 13:40 Heparin Dosing Weight (kg) 55.95 02/07/2015 13:33 Height 154.94 cm Height Collection Method Stated Weight 68.182 kg Dosing Weight Difference Percent -20.766 % Dosing Wt Entered is < 10% of Previous Wt Confirmed Dosing Weight Collection Method Measured Body Surface Area 1.713 m2 Body Mass Index 28.4 m2 , Vital Signs (last 24 hrs) Last Charted Temp Oral 97.4 DegF (FEB 08 16:35) Heart Rate Apical L 54bpm (FEB 08 15:25) Resp Rate 17 BRMIN (FEB 08 15:25) SBP 119 mmHg (FEB 08 15:25) DBP 71 mmHg (FEB 08 15:25) Weight 71.023 kg (FEB 07 22:25) Height 154.94 cm (FEB 07 22:25) BMI 29.59 (FEB 07 22:25) General: Alert and oriented. Eye: Pupils are equal, round and reactive to light. HENT: Normocephalic. Neck: Supple, Non-tender. Respiratory: Lungs are clear to auscultation. Cardiovascular: Normal rate, Regular rhythm. Gastrointestinal: Soft, Non-tender. Lymphatics: No lymphadenopathy neck, axilla, groin. Musculoskeletal Normal range of motion. Integumentary: Warm, Dry. Neurologic: Alert, Oriented. Cognition and Speech: Speech clear and coherent. Review / Management Results review: Labs (Last four charted values) WBC 7.0 (FEB 08) 7.4 (FEB 07) Hgb 13.7 (FEB 08) 13.7 (FEB 07) Hct 40.0 (FEB 08) 40.9 (FEB 07) Plt 171 (FEB 08) 178 (FEB 07) Na 143 (FEB 08) 139 (FEB 08) 139 (FEB 07) K 4.2 (FEB 08) L 3.1 (FEB 08) 4.3 (FEB 07) CO2 L 23 (FEB 08) 25 (FEB 08) L 23 (FEB 07) Cl H 113 (FEB 08) 105 (FEB 08) 107 (FEB 07) Cr 0.6 (FEB 08) 0.7 (FEB 08) 0.8 (FEB 07) BUN L 6 (FEB 08) 8 (FEB 08) 10 (FEB 07) Glucose Random H 106 (FEB 08) 84 (FEB 08) 77 (FEB 07) Mg 1.9 (FEB 07) Phos 3.1 (FEB 07) Ca L 8.3 (FEB 08) 8.7 (FEB 08) 8.8 (FEB 07) PT 14.6 (FEB 08) 14.3 (FEB 08) 13.1 (FEB 07) INR 1.13 (FEB 08) 1.10 (FEB 08) 0.99 (FEB 07) PTT H 37.5 (FEB 08) H 38.8 (FEB 08) 30.3 (FEB 07) Troponin <0.02 (FEB 08) <0.02 (FEB 08) <0.02 (FEB 07) Total CK 41 (FEB 08) 44 (FEB 08) 72 (FEB 07) . Impression and Plan 44 yo female with history of CAD/NSTEMI with sickle-cell trait and anemia, heme consulted for high MCV. # History of anemia - Patient reports being anemic which is possible with sickle cell trait. Less likely due to blood loss given no periods and no GI source of bleeding. - High MCV can be due to multiple causes - B12/folate deficiency, reticulocytosis, medications. - Please order peripheral smear, retic c ount, B12/folate, and hgb electrophoresis. - Continue to check daily CBC to trend v alues. - Platelets low-normal, will also monito r. Thank you for this consultation, we will await the results of the above testing for further recommendations. Christian Bernstein MD Hematology Fellow, PGY-5 Pager: [phone] Addendum by Reid Arrieta MD on 02/10/2015 13:18 TEACHING PHYSICIAN ADDENDUM. I discussed the patient personally with the Fellow , Dr. Bernstein on 02/09/2015 and we discussed the plan of care. I have reviewed the note and agree the plan of care. 02/11/2015 [facility] Extracted from:Title: Discharge Summary * Author: Bryn Saleh MD PHD Date: 07/01/14 Discharge Information Diagnosis: 1. Atypical chest pain. 2. Hypertension. 3. Hypokalemia. 4. Substance abuse. 5. Possible anxiety or other psychiatri c disorder. Consultation: Cardiology: Dr. Wolf. Procedures: Nuclear stress test. Echocardiogram. Discharge Medications: Please see medication reconcilliation form. Diet: heart healthy. Activity as tolerated. Follow up: Cardiology and PCP in 1 week. Total time spent for discharge: >30 min. Discharge Plan Discharge Summary Plan Discharge Status: improved. Discharge instructions given: to patient. Discharge disposition: discharge to home self care. Course Improving. Education and Follow-up Counseled: patient, regarding diagnosis, regarding treatment, regarding medications. 07/02/2014 [facility] Plan of Care No Data Provided for This Section Social History Social History Date Source Social History TypeResponse Substance Abuse Use: Past. Type: Marijuana. Recreational Drug Route: Inhaled. Employment/School Status: Unemployed. Alcohol Past, Type Wine. Frequency: 1-2 times per year. Previous treatment: None. Alcohol use interferes with work or home: No. Drinks more than intended: No. Others hurt by drinking: No. Ready to change: No. Household alcohol concerns: No. Smoking Status Never smoker; Type: Cigarettes; Previous treatment: None; Exposure to Tobacco Smoke None; Cigarette Smoking Last 365 Days No; Reg Smoking Cessation Counseling No entered on: 01/27/19 01/28/2019 [facility] Social History TypeResponse Substance Abuse Use: Current. Type: Marijuana. Recreational Drug Route: Inhaled. IV drug use: No. Drug use interferes with work/home: No. Ready to change: No. Household substance abuse concerns: No. Cessation Education Provided: No. Alcohol Past, Type Wine. Frequency: 1-2 times per year. Previous treatment: None. Alcohol use interferes with work or home: No. Drinks more than intended: No. Others hurt by drinking: No. Ready to change: No. Household alcohol concerns: No. Smoking Status Never smoker; Type: Cigarettes; Previous treatment: None; Exposure to Tobacco Smoke None; Cigarette Smoking Last 365 Days No; Reg Smoking Cessation Counseling No 09/04/2016 [facility] Social [facility] TypeResponse Substance Abuse Use: Current. Type: Marijuana. Recreational Drug Route: Inhaled. IV drug use: No. Drug use interferes with work/home: No. Ready to change: No. Household substance abuse concerns: No. Cessation Education Provided: No. Alcohol Past, Type Wine. Frequency: 1-2 times per year. Previous treatment: None. Alcohol use interferes with work or home: No. Drinks more than intended: No. Others hurt by drinking: No. Ready to change: No. Household alcohol concerns: No. Smoking Status Never smoker; Type: Cigarettes; Previous treatment: None; Exposure to Tobacco Smoke None; Cigarette Smoking Last 365 Days No; Reg Smoking Cessation Counseling No 09/04/2016 [facility] Social History TypeResponse Substance Abuse Use: Current. Type: Marijuana. Recreational Drug Route: Inhaled. IV drug use: No. Drug use interferes with work/home: No. Ready to change: No. Household substance abuse concerns: No. Cessation Education Provided: No. Alcohol Past, Type Wine. Frequency: 1-2 times per year. Previous treatment: None. Alcohol use interferes with work or home: No. Drinks more than intended: No. Others hurt by drinking: No. Ready to change: No. Household alcohol concerns: No. Smoking Status Never smoker; Type: Cigarettes; Previous treatment: None; Exposure to Tobacco Smoke None; Cigarette Smoking Last 365 Days No; Reg Smoking Cessation Counseling No 07/12/2014 [facility] Social History TypeResponse Substance Abuse Use: Current. Type: Marijuana. Recreational Drug Route: Inhaled. IV drug use: No. Drug use interferes with work/home: No. Ready to change: No. Household substance abuse concerns: No. Cessation Education Provided: No. Alcohol Past, Type Wine. Frequency: 1-2 times per year. Previous treatment: None. Alcohol use interferes with work or home: No. Drinks more than intended: No. Others hurt by drinking: No. Ready to change: No. Household alcohol concerns: No. Smoking Status Never smoker; Type: Cigarettes; Previous treatment: None; Exposure to Tobacco Smoke None; Cigarette Smoking Last 365 Days No; Reg Smoking Cessation Counseling No 07/12/2014 [facility] Family History No Data Provided for This Section Advance Directives No Data Provided for This Section Functional Status No Data Provided for This Section
--- OUTSIDE RECORDS SUMMARY | 2020-05-05 06:47 | XMS REPORT | Continuity of Care Document ---
Author Author [facility] t Organization [facility] Address [address] [place] [address] Phone Unavailable Care Team Providers Care Mud Worker Name Role Phone Joanie RAYMUNDO D.O. PCP KHRIS RODRIGUEZ Attphys Unavailable Jose GVirginia alexander DO Attphys TeqwimAdelfo addison DO Attphys Boubacar YOUNG, P Bella Attphys [phone] Jamari Almanza MD Attphys Josesito HERNANDEZ, M Britton Attphys KARLA DA SILVA Attphys Unavailable Eliu Mccullough Attphys CANO MILLA TONA Attphys Unavailable Glen Thomas Attphys Torri SMALLS Attphys Unavailable Karen Cervantes Attphys Gonzalo CHENG Jamari Mayon Attphys BIRGIT BURT Attphys Unavailable Jerome, A Guillermo Attphys Adán Morris Attphys Aleena Pete Attphys Catalina Morris Attphys Richelle Mares Attphys Radha Worthingtonohinder Attphys Selvin Tejada Attphys Shamir Espositothi Attphys Kwesi Ortega Attphys Dick Jacobs Attphys Aneudy Trevino Attphys ADELFO MASTERS Admphys Unavailable Eliu Mccullough Admphys Torri SMALLS Admphys Unavailable Gillian Gentile Admphys Adán Morrisesh Admphys Aleena Pete Admphys Geneva Salazar Admphys Richelle Mares Admphys Radha Worthington Harmohinder Admphys Shamir Espositothi Admphys Payers Payer Name Policy Type Policy Number Effective Date Expiration Date S [facility] [id number] 2018 00:00 :00 [facility] PENDING MEDICAIDPENDING [id number] -[address], [place] [address]Medicaid [id number] 2018 00:00:00 Laci Zuniga [facility] MEDICAIDUNITEDHC COMM STAR+ [id number] 2019-PresentHMO [id number] 2019 00:00:00 Laci Zuniga [id number] SSI RECIPIENTxxxxxxxx [id number] [id number] xxxxxxxxx 2018 00:00:00 [facility] Problems Condition Name Condition Details Condition Category Status Onset Date Resolution Date Last Treatment Date Treating Clinician Comments Source Weakness generalized Weakness generalized Disease Active 00:00:00 [facility] Vitamin D deficiency Vitamin D deficiency Disease Active 00:00:00 [facility] Positive antinuclear antibody Positive antinuclear antibody Disease Active 2019-07-29 00:00:00 Overview: 1: 80 speckled; other lupus panel neg, anca normal [facility] CHEST PAIN CHES T PAIN Active 01/27/2019 [facility] Diagnosis Active 2019-01-27 00 :00:00 2019-01-27 22:50:00 Inocente Mancuso ACUTE CHEST PAIN ACUT E CHEST PAIN Active 01/27/2019 [facility] Diagnosis Active 2019-01-27 00:00:00 2019-07-25 08:42:00 Inocente Mancuso Vertebral artery occlusion, right Vertebral artery occlusion, ri ght Disease Active 2018-08-27 00:00:00 [facility] Sciatica of right side Sciatica of right side Disease Active 2018-05-23 00:00:00 [facility] CP CP Active 03/23/2017 [facility] Diagnosis Active 2017-03-23 09:00:00 2017-03-27 12:10:00 Catalina Mancuso HEAD INJURY/ BACK PAIN HEAD INJURY/ BACK PAIN Active 12/04/2016 [facility] Diagnosis Active 2016-12-04 15:00:00 2016-12-04 20:53:00 Inocente Mancuso WEAKENSS WEAK ENSS Active 09/18/2016 [facility] Diagnosis Active 2016-09-18 00:00:00 2016-09-20 10:54:00 [facility] SOB SOB Active 09/04/2016 [facility] Diagnosis Active 2016-09-04 00:00:00 2016-09-05 12:34:00 Catalina Mancuso SHORTNESS OF BREATH SHOR TNESS OF BREATH Active 05/16/[address] [facility] Diagnosis Active 2016-05-16 00:00:00 2016-05-16 05:20:00 [facility] ACUTE BACTERIA BRONCHITIS ACUT E BACTERIA BRONCHITIS Active 05/16/[address] 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 Disease Active 2015-05-26 00:00:00 [facility] CAD, multiple vessel CAD, multiple vessel Disease Active 00:00:00 [facility] Substernal chest pain Substernal chest pain Disease Active 201 11-01-24 00:00:00 [facility] Chest pain Chest pain Disease Active 2015-02-25 00:00:00 [facility] ACS ACS Active 02/07/2015 [facility] Diagnosis Active 2015-02-07 00:00:00 2015-04-21 23:04:00 [facility] CHEST DISCOMFORT/DIZZINESS CLAY ST DISCOMFORT/DIZZINESS Active 02/07/2015 [facility] Diagnosis Active 2015-02-07 00 :00:00 2015-02-07 17:32:00 [facility] CHEST PAIN, NON ST ELEVATED MYOCARDIAL I CHEST PAIN, NON ST ELEVATED MYOCARDIAL I Active 07/11/[address] [facility] Diagnosis Active 2014-07-11 00:00:00 2014-07-21 08:57:00 [facility] PAIN IN LEFT SIDE OF MOUTH MARILYNN N IN LEFT SIDE OF MOUTH Active 02/26/2014 [facility] Diagnosis Active 2014-02-26 16:00:00 2014-04-24 12:28:00 [facility] HTN, CP HTN, CP Active 01/19/2014 [facility] Diagnosis Active 2014-01-19 00:00:00 2014-01-20 02:00:00 Inocente Mancuso GERD (gastroesophageal reflux disease) GERD (gastroesophagea l reflux disease) Disease Active 2011-10-01 00:00:00 [facility] HLD (hyperlipidemia) HLD (hyperlipidemia) Disease Active 00:00:00 [facility] SOB (shortness of breath) SOB (shortness of breath) Disease Ac tive 2011-09-30 00:00:00 [facility] Obesity Obesity Disease Active 2011-09-30 00:00:00 [facility] DVT (deep vein thrombosis) in DVT (deep vein throm bosis) in Disease Active 2011-09-30 00:00:00 [facility] S/P hysterectomy S/P hysterectomy Disease Active 2011-09-30 00:00:00 [facility] Transient ischemic attack (disorder) Transient ischemic attack (disorder) Active 06/25/1994 Problem 01/30/2019 [facility] Active 1994-06-25 00 :00:00 2019-01-30 22:51:49 Inocente [facility] Problem Condition Active [facility] Coronary artery disease s/p PCI 02/23/15 Coronary saritha ry disease s/p PCI 02/23/15 Disease Active [facility] Depression Depression Disease Active [facility] Anxiety Anxiety Disease Active [facility] Dizziness Dizziness Disease Active [facility] Abdominal hysterectomy (procedure) Abdominal hysterectomy (procedure) Resolved Problem 01/30/2019 [facility] Problem Resolved 2019-01-30 22:51:49 Inocente Mancuso Acute bronchitis (disorder) Ac kip bronchitis (disorder) Resolved Problem 01/30/2019 [facility] Problem Resolved 2019-01-30 22:51:49 Sergei Mancuso Altered mental status (finding) Altered mental status (finding) Resolved Problem 01/30/2019 [facility] Problem Resolved 2019-01-30 22:51:49 Inocente Mancuso Angina (disorder) Shona na (disorder) Resolved Problem 01/30/2019 [facility] Problem Resolved 2019-01-30 22:51:49 Inocente Mancuso section (procedure) C esarean section (procedure) Resolved Problem 01/30/2019 [facility] Problem Resolved 2019-01-30 22:51:49 Inocente Mancuso Chest pain (finding) Ches t pain (finding) Resolved Problem 01/30/2019 [facility] Problem Resolved 2019-01-30 22:51:49 Pippa Mancuso Atherosclerosis of coronary artery (disorder) Atherosclerosis of coronary artery (disorder) Resolved Problem 01/30/2019 [facility] Problem Resolved 2019-01-30 22:51:49 Inocente Mancuso History of - tubal ligation (context-dependent categor y) History of - tubal ligation (context-dependent category) Resolved Problem 01/30/2019 [facility] Problem Resolved 2019-01-30 22:51:49 Sergei Mancuso History of tonsillectomy (situation) History of tonsillectomy (situation) Resolved Problem 01/30/2019 [facility] Problem Resolved 2019-01-30 22:51:49 Inocente Mancuso Myocardial infarction (disorder) Myocardial infarction (disorder) Resolved Problem 01/30/2019 [facility] Problem Resolved 2019-01-30 22:51:49 Inocente Mancuso Pulmonary embolism (disorder) Pulmonary embolism (disorder) Resolved Problem 01/30/2019 [facility] Problem Resolved 2019-01-30 22:51:49 Inocente Mancuso Sickle cell trait (disorder) S ickle cell trait (disorder) Resolved Problem 01/30/2019 [facility] Problem Resolved 2019-01-30 22:51:49 Inocente Mancuso On examination - dental caries (context-dependent padilla gory) On examination - dental caries (context-dependent category) Active Problem 01/30/2019 [facility] Problem Active 2019-01-30 22:51:49 Inocente Mancuso Exacerbation of asthma (disorder) Exacerbation of asthma (disorder) Active Problem 01/30/2019 [facility] Problem Active 2019-01-30 22:51:49 [facility] Hypertensive disorder, systemic arterial (disorder) Hypertensive disorder, systemic arterial (disorder) Active Problem 01/30/2019 [facility] Reyes,[facility] Problem Active 2019-01-30 22:51:49 Jose Carlos gavin Mancuso CHEST PAIN NOS CHES T PAIN NOS Active 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 Diagnosis Active 2016-05-22 12:41:00 [facility] UNSPECIFIED ASTHMA WITH (ACUTE) EXACERBA UNSPECIFIED ASTHMA WITH (ACUTE) EXACERBA Active [facility] Diagnosis Active 2016-05-22 12:41:00 [facility] CHEST PAIN, UNSPECIFIED CHES T PAIN, UNSPECIFIED Active [facility] Diagnosis Active 2017-03-27 12:10:00 [facility] ESSENTIAL (PRIMARY) HYPERTENSION ESSENTIAL (PRIMARY) HYPERTENSION Active [facility] Diagnosis Active 2016-09-05 12 :34:00 [facility] WEAKNESS WEAK NESS Active [facility] Diagnosis Active 2016-09-20 10:54:00 [facility] UNSTABLE ANGINA UNST ABLE ANGINA Active [facility] Diagnosis Active 2016-11-27 14:48:00 [facility] Chest pain (finding) Ches t pain (finding) Resolved [facility] Problem Resolved 2019-01-30 22:51:49 eSrgeior eyal Mancuso Cervicalgia Cerv icalgia 12/04/2016 12/07/2016 [facility] Problem 2016-12-04 05:00:00 2016-12-07 03:18:04 2016-11 03:18:04 [facility] Strain of muscle and tendon of unspecified wall of tho rax, initial encounter Strain of muscle and tendon of unspecified wall of thorax, initial encounter 12/04/2016 12/07/2016 [facility] Problem 2016-12-04 05:00:00 2016-12-07 03:18:04 2016-12-07 03:18:04 Catalina Mancuso Weakness Weak ness 09/18/2016 09/22/2016 [facility] Problem 2016-09-18 05:00:00 2016-09-22 03:07:33 2016-09-22 03:07:33 [facility] Headache Head ache 09/18/2016 09/22/2016 [facility] Problem 2016-09-18 05:00:00 2016-09-22 03:07:33 2016-09-22 03:07:33 [facility] Discharge Diagnosis: Atypical chest pain Discharge Diagnosis: Atypical chest pain 07/11/2014 07/13/2014 [facility] Problem 2014-07-11 06:00:00 2014-07-13 14:13:03 2014-07-13 14:13:03 [facility] Discharge Diagnosis: Dental caries Discharge Diagnosis: Dental caries 02/28/2014 03/03/2014 [facility] Problem 2014-02-28 05:00:00 2014-03-03 01:25:07 2014-03-03 01:25:07 [facility] Allergies, Adverse Reactions, Alerts Allergy Name Allergy Type Status Severity Reaction(s) Onset Date Inacti ve Date Treating Clinician Comments Source albuterol DA Active SV 2020-02-16 00:00:00 [facility] ibuprofen DA Active SV 2020-02-16 00:00:00 [facility] gabapentin DA Active [place] 2020-02-16 00:00:00 [facility] latex DA Active [place] 2020-02-16 00:00:00 [facility] Ibuprofen Allergy to substance Active 2019-12-10 00:00:00 [facility] Tramadol Allergy to substance Active Moderate 2019-12-10 00:00:00 [facility] Gabapentin Allergy to substance Active Moderate 2019-12-10 00:00:0 0 [facility] albuterol DA Active U 2019-10-09 00:00:00 [facility] gabapentin DA Active [place] 2019-10-09 00:00:00 [facility] latex DA Active [place] 2019-10-09 00:00:00 [facility] Albuterol Propensity to adverse reactions to drug Active Other (See Comments) 2019-10-09 00:00:00 Seizures Laci Meth odist gabapentin DA Active U 2019-07-02 00:00:00 [facility] Albuterol Propensity to adverse reactions to drug Active Other 2019-06-16 00:00:00 Blood glucose decrease Georges Livan alth albuterol DA Active SV 2019-06-05 00:00:00 [facility] ibuprofen DA Active [place] 2019-04-04 00:00:00 [facility] Ibuprofen Propensity to adverse reactions to drug Active Breathing problems 2018-05-23 00:00:00 Chest tightness, itching, wh eezing [facility] Latex, Natural Rubber Propensity to adverse reactions to drug Active 2018-05-23 00:00:00 [facility] ibuprofen DA Active 2018-05-11 00:00:00 [facility] ibuprofen DA Active 2018-02-10 00:00:00 [facility] Ibuprofen Propensity to adverse reactions to drug Active Swelling 2018-02-05 00:00:00 Laci arriaga Ibuprofen Propensity to adverse reactions Active Itching 2016-10-26 00:00:00 Vomiting [facility] Ibuprofen Propensity to adverse reactions to drug Active Itching 2016-10-12 00:00:00 Vomiting Laci arriaga No Known Medication Allergies No Known Medication Allergies Active [facility] Family History Family Member Diagnosis Comments Start Date Stop Date Source Maternal grandmother Cancer [facility] Maternal grandmother Depression [facility] Maternal grandmother Heart disease [facility] Maternal grandmother Mental retardation [facility] Natural mother Asthma [facility] Natural mother Drug abuse [facility] Natural mother Heart disease [facility] Natural mother Liver disease [facility] Natural mother [facility] Natural mother Blood Disease [facility] Natural mother Diabetes [facility] Natural [facility] Hy[facility] Paternal grandfather Cancer [facility] Paternal grandmother Heart disease [facility] Social History Social Habit Start Date Stop Date Quantity Comments Source Sex Assigned At [facility] Alcohol intake 2019-06-16 00:00:00 2019-06-16 00:00:00 Current drinker of alcohol (finding) [facility] Tobacco use and exposure 2019-01-28 00:00:00 2019-01-28 00:00:00 Bakari robles jaylan RAMÍREZ [facility] History SDOH Food Worry 2018-05-23 00:00:00 2018-05-23 00:00:00 1 [facility] History SDOH Food Scarcity 2018-05-23 00:00:00 2018-05-23 00:00:00 1 [facility] Social History 2014-07-12 04:41:33 2014-07-12 04:41:33 [facility] Alcohol Comment 2011-09-30 00:00:00 2011-09-30 00:00:00 Social, 3x/mo nth [facility] Smoking Status Start Date Stop Date Source Never smoker [facility] Medications Ordered Medication Name Filled Medication Name Start Date Stop Da te Current Medication? Ordering Clinician Indication Dosage Frequency Signature (SIG) Comments Components Source clopidogrel (PLAVIX) 75 mg tablet 2019-10-13 10:57:05 Yes 75mg QD Take 75 mg by mouth daily. Laci Zuniga isosorbide mononitrate (IMDUR) 30 MG 24 hr tablet 2019-10-13 10:57:05 Yes 30mg Q.5D Take 30 mg by mouth 2 (two) times a day. Laci Zuniga metoprolol tartrate (LOPRESSOR) 25 mg tablet 2019-10-13 10:57:05 Yes 25mg Q.5D Take 25 mg by mouth 2 (two) times a day. Laci Zuniga ranolazine (RANEXA) 500 MG 12 hr ER tablet 2019-10-13 10:57:05 Yes 1000mg Q.5D Take 1,000 mg by mouth 2 (two) times a day. Laci Zuniga aspirin 325 MG tablet 2019-10-13 10:57:05 Yes 325mg QD Take 325 mg by mouth daily. Laci Zuniga nitroglycerin (NITRODUR) 0.2 mg/hr 2019-10-13 10:57:05 Yes 1{patch} QD Place 1 patch on the skin daily. Laci Zuniga pravastatin (PRAVACHOL) 40 MG tablet 2019-10-13 10:57:05 Ye s 80mg QD Take 80 mg by mouth daily. Laci ram lisinopril (PRINIVIL,ZESTRIL) 20 mg tablet 2019-10-13 10:57:05 Yes 20mg QD Take 20 mg by mouth daily. Luz Zuniga hydroCHLOROthiazide (MICROZIDE) 12.5 mg capsule 2019-10-13 10:57 :05 Yes 12.5mg QD Take 12.5 mg by mouth daily. Laci Zuniga isosorbide mononitrate (IMDUR) 30 MG 24 hr tablet 2019-10-11 00:00:00 2019-11-10 23:59:00 No 30mg QD Take 1 tablet (30 mg total) by mouth daily for 30 days. Laci Zuniga cetirizine (ZyrTEC) 10 MG tablet 2019-10-10 19:46:46 Yes 10mg QD Take 10 mg by mouth daily. Laci Zuniga fluticasone (FLONASE) 50 mcg/actuation nasal spray 2019-09 19:46:46 Yes 2{spray} QD 2 sprays by Each Nare route daily. Laci Zuniga clopidogrel (PLAVIX) 75 mg tablet 2019-10-10 19:46:46 Yes 75mg QD Take 75 mg by mouth daily. Laci Zuniga metoprolol tartrate (LOPRESSOR) 25 mg tablet 2019-10-10 19:46:46 Yes 25mg Q.5D Take 25 mg by mouth 2 (two) times a day. Laci Zuniga ranolazine (RANEXA) 500 MG 12 hr ER tablet 2019-10-10 19:46:46 Yes 500mg Q.5D Take 500 mg by mouth 2 (two) times a day. Laci Zuniga multivitamin with minerals tablet 2019-10-10 19:46:46 Yes 1{tbl} QD Take 1 tablet by mouth daily. Laci bailey lisinopril-hydrochlorothiazide (PRINZIDE,ZESTORETIC) 20-12.5 mg per tablet 2019-10-10 19:46:46 Yes 1{tbl} QD Take 1 tablet by m outh daily. Laci Zuniga pravastatin (PRAVACHOL) 40 MG tablet 2019-10-10 19:46:46 Ye s 80mg QD Take 80 mg by mouth daily. Laci ram aspirin 325 MG tablet 2019-10-10 19:46:46 Yes 325mg QD Take 325 mg by mouth daily. Laci Zuniga nitroglycerin (NITROSTAT) 0.4 MG SL tablet 2019-10-10 19:46:[address] 0.4 mg under the tongue every 5 (five) minutes a s needed for chest pain. [place] [facility] nitroglycerin (NITRODUR) 0.2 mg/hr 2019-10-10 19:46:46 Yes 1{patch} QD Place 1 patch on the skin daily. [facility] [facility] nitroglycerin (NITRO-BID) 2 % ointment 2019-10-10 19:46:46 Yes 1[in_us] Place 1 inch on the skin daily. [place] [facility] atorvastatin (LIPITOR) 10 MG tablet 2019-10-10 00:00:0 0 2019-11-09 23:59:00 No 10mg QD Take 1 tablet (10 mg total) by mouth sosa ly for 30 days. [place] [facility] hydroCHLOROthiazide (HYDRODIURIL) 25 mg tablet 2019-07-01 00 :00:00 Yes Essential hypertension 25mg QD Take 1 tablet by mouth daily. [facility] gabapentin (NEURONTIN) 100 mg capsule 2019-06-16 00:00:00 Yes S/P CABG (coronary artery bypass graft) 100mg Take 1 capsule by mouth 3 times daily. [facility] acetaminophen-codeine (TYLENOL/CODEINE #3) 300-30 mg per tab let 2019-06-16 00:00:00 Yes S/P CABG (coronary artery bypass graft) 1{tbl} Take 1 tablet by mouth every 8 hours as needed for Pain. [facility] nitroGLYCERIN (NITRO-DUR) 0.2 mg/hr patch 2019-05-14 00:00:0 0 Yes CAD, multiple vessel 1{patch} QD Apply 1 Patch to ski n as directed daily. Leave patch for 12 to 14 hours. Then no patch on for the rest of the day [facility] nitroGLYCERIN (NITROSTAT) 0.4 mg sublingual tablet 2019-04 00:00:00 Yes CAD, multiple vessel Dissolve 1 tablet under the tongue every 5 minutes as needed for chest pain for a maximum of 3 doses. If chest pain persists, visit ER. [facility] atorvastatin (LIPITOR) 80 mg tablet 2019-05-14 00:00:00 Yes CAD, multiple vessel 80mg Take 1 tablet by mouth at bedtime nightly. [facility] tiZANidine (ZANAFLEX) 4 mg tablet 2019-05-14 00:00:00 Yes Muscle spasm of right shoulder 4mg Take 1 tablet by senia th every 12 hours as needed for Muscle Spasms. [facility] hydrOXYzine (ATARAX) 25 mg tablet 2019-05-14 00:00:00 Yes PTSD (post- traumatic stress disorder) 25mg Take 1 tablet by mouth every 8 hours as needed for Anxiety. [facility] acetaminophen-codeine (TYLENOL/CODEINE #3) 300-30 mg per tab let 2019-05-14 00:00:00 2019-06-16 00:00:00 No Caries 1{tbl} Take 1 tablet by mouth every 4 hours as needed for Pain. [facility] amoxicillin (AMOXIL) 500 mg capsule 2019-05-14 00:00:0 0 2019-05-24 23:59:00 No Caries 500mg Take 1 capsule by mouth 3 times daily fo r 10 days. [facility] acetaminophen-codeine (TYLENOL/CODEINE #3) 300-30 mg per tab let 2019-04-30 00:00:00 2019-05-14 09:38:13 No Dental infection 1{tbl} Take 1 tablet by mouth every 4 hours as needed for Pain. [facility] clindamycin (CLEOCIN HCL) 300 mg capsule 2019-04 00:00:00 2019-05-11 23:59:00 No Dental infection 300mg Take 1 c apsule by mouth 3 times daily for 10 days. [facility] nitroGLYCERIN (NITRO-DUR) 0.2 mg/hr patch 2018-06 00:00:00 2019-05-14 00:00:00 No Medication refill 1{patch} QD Apply 1 Patch to skin as directed daily. Leave patch for 12 to 14 hours. Then no patch on for the rest of the day [facility] nitroGLYCERIN (NITROSTAT) 0.4 mg sublingual tablet 2019-04-16 00:00:00 2019-05-14 00:00:00 No Medication refill Dissolve 1 tablet under the tongue every 5 minutes as needed for chest pain for a maximum of 3 doses. If chest pain persists, visit ER. José Manuel Licona alth metoprolol tartrate (LOPRESSOR) 25 mg tablet 2019-04-14 00:0 0:00 Yes CAD, multiple vessel 25mg Q.5D Take 1 tablet by mouth 2 times daily. [facility] atorvastatin (LIPITOR) 80 mg tablet 2019-04-14 00:00:0 0 2019-05-14 00:00:00 No Medication refill 80mg Take 1 tablet by mouth at bedt katharina nightly. [facility] hydrOXYzine (ATARAX) 25 mg tablet 2019-04-14 00:00:00 2018 11:46:08 No Medication refill 25mg Take 1 tablet by mouth 3 times daily as needed for Anxiety. [facility] atorvastatin 2019-01-29 02:00:00 No Notes: (Same as: Lipitor) [facility] atorvastatin 2019-01-29 02:00:00 No Notes: (Same as: Lipitor) [facility] famotidine 2019-01-28 14:00:00 No Notes: (S maximiliano as: Pepcid) [facility] Saline Flush 0.9% 2019-01-28 14:00:00 No Notes: Same as: BD Posiflush Sterile [facility] Aspirin 81 MG Chewable Tablet 2019-01-28 14:00:00 No Notes: Take with food. [facility] Ranexa 2019-01-28 14:00:00 No Notes : Same as Ranexa "Do Not Crush" [facility] metoprolol tartrate 2019-01-28 14:00:00 No Notes: (Same as: Lopressor) [facility] Lisinopril 2019-01-28 14:00:00 No Notes: (Same as: Prinivil, Zestril) [facility] Isosorbide 2019-01-28 14:00:00 No Notes: (Same as:Imdur) "Do Not Crush" Take on empty stomach/ full glass of water. Do not crush [facility] Hydrochlorothiazide 25 MG Oral Tablet 2019-01-28 14:00:00 N o Notes: (Same as: Hydrodiuril) With food. [facility] Fluticasone propionate 0.05 MG/ACTUAT Metered Dose Nasal Spr ay [Flonase] 2019-01-28 14:00:00 No Notes: (Same as: Edmund bhatti) [facility] Famotidine 2019-01-28 14:00:00 No 20 mg, 1 tab, Route: PO, Daily, Dosing Weight 84.716, kg, Start date: 01/28/19 9:00:00 CDT, Duration: 30 day, Stop date: 02/26/19 9:00:00 CDT [facility] clopidogrel 2019-01-28 14:00:00 No Notes: ( Same As: Plavix) [facility] famotidine 2019-01-28 14:00:00 No Notes: (S maximiliano as: Pepcid) [facility] Saline Flush 0.9% 2019-01-28 14:00:00 No Notes: Same as: BD Posiflush Sterile [facility] Aspirin 81 MG Chewable Tablet 2019-01-28 14:00:00 No Notes: Take with food. [facility] Ranexa 2019-01-28 14:00:00 No Notes : Same as Ranexa "Do Not Crush" [facility] metoprolol tartrate 2019-01-28 14:00:00 No Notes: (Same as: Lopressor) [facility] Lisinopril 2019-01-28 14:00:00 No Notes: (Same as: Prinivil, Zestril) [facility] Isosorbide 2019-01-28 14:00:00 No Notes: (Same as:Imdur) "Do Not Crush" Take on empty stomach/ full glass of water. Do not crush [facility] Hydrochlorothiazide 25 MG Oral Tablet 2019-01-28 14:00:00 N o Notes: (Same as: Hydrodiuril) With food. [facility] Fluticasone propionate 0.05 MG/ACTUAT Metered Dose Nasal Spr ay [Flonase] 2019-01-28 14:00:00 No Notes: (Same as: Edmund bhatti) [facility] Famotidine 2019-01-28 14:00:00 No 20 mg, 1 tab, Route: PO, Daily, Dosing Weight 84.716, kg, Start date: 01/28/19 9:00:00 CDT, Duration: 30 day, Stop date: 02/26/19 9:00:00 CDT [facility] clopidogrel 2019-01-28 14:00:00 No Notes: ( Same As: Plavix) Inocente Mancuso K-Dur 20 2019-01-28 13:56:00 No Notes: (Same as: K-Dur 20) "Do Not Crush" Give with food and full glass of water For patients unable to swallow tablet, dissolve in one half glass of water. Allow about 2 minutes for the tablets to disintegrate. Stir before giving to prepare slurry and administer. Please exclude Patient s with feeding tube less than 14 Armenian (Dobhoff, J-tube etc) and pediatric and patients. Inocente Mancuso K-Dur 20 2019-01-28 13:56:00 No Notes: (Same as: K-Dur 20) "Do Not Crush" Give with food and full glass of water For patients unable to swallow tablet, dissolve in one half glass of water. Allow about 2 minutes for the tablets to disintegrate. Stir before giving to prepare slurry and administer. Please exclude Patient s with feeding tube less than 14 Armenian (Dobhoff, J-tube etc) and pediatric and patients. [facility]ulon Potassium Chloride 2019-01-28 11:58:00 No Notes: (Same as: Potassium Chloride) [facility] Potassium Chloride 2019-01-28 11:58:00 No Notes: (Same as: Potassium Chloride) [facility] Ondansetron 2019-01-28 05:32:00 No Notes: ( Same as: Zofran) [facility] Morphine 2019-01-28 05:32:00 No Not es: (Same as:MORPhine Sulfate) [facility] Ondansetron 2019-01-28 05:32:00 No Notes: ( Same as: Zofran) [facility] Morphine 2019-01-28 05:32:00 No Not es: (Same as:MORPhine Sulfate) [facility] Famotidine 2019-01-28 04:34:00 Yes 20 mg = 1 tab, PO, Daily, # 60 tab, 0 Refill(s) [facility] Hydrochlorothiazide 25 MG Oral Tablet 2019-01-28 04:34:00 Y es 25 mg = 1 tab, PO, Daily, 0 Refill(s) [facility] Lisinopril 2019-01-28 04:34:00 Yes 2 0 mg, PO, Daily, 0 Refill(s) [facility] Nitroglycerin 2019-01-28 04:34:00 Yes 0.2, Transdermal, Daily, 0 Refill(s) [facility] atorvastatin 2019-01-28 04:34:00 Yes 80 mg, PO, Bedtime, 0 Refill(s) [facility] Famotidine 2019-01-28 04:34:00 Yes 20 mg = 1 tab, PO, Daily, # 60 tab, 0 Refill(s) [facility] Hydrochlorothiazide 25 MG Oral Tablet 2019-01-28 04:34:00 Y es 25 mg = 1 tab, PO, Daily, 0 Refill(s) [facility] Lisinopril 2019-01-28 04:34:00 Yes 2 0 mg, PO, Daily, 0 Refill(s) [facility] Nitroglycerin 2019-01-28 04:34:00 Yes 0.2, Transdermal, Daily, 0 Refill(s) [facility] atorvastatin 2019-01-28 04:34:00 Yes 80 mg, PO, Bedtime, 0 Refill(s) [facility] Saline Flush 0.9% 2019-01-28 03:51:00 No Notes: Same as: BD Posiflush Sterile [facility] Ondansetron 2019-01-28 03:51:00 No Notes: ( Same as: Zofran) [facility] Nitroglycerin 2019-01-28 03:51:00 No Notes: (Same as:Nitroquick, Nitrostat) "Do Not Crush" Sublingual tablet [facility] Morphine 2019-01-28 03:51:00 No Not es: (Same as:MORPhine Sulfate) [facility] Saline Flush 0.9% 2019-01-28 03:51:00 No Notes: Same as: BD Posiflush Sterile [facility] Ondansetron 2019-01-28 03:51:00 No Notes: ( Same as: Zofran) [facility] Nitroglycerin 2019-01-28 03:51:00 No Notes: (Same as:Nitroquick, Nitrostat) "Do Not Crush" Sublingual tablet [facility] Morphine 2019-01-28 03:51:00 No Not es: (Same as:MORPhine Sulfate) [facility] Aspirin 2019-01-28 02:47:00 No Notes: Take with food. [facility] Aspirin 2019-01-28 02:47:00 No Notes: Take with food. [facility] Ondansetron 2019-01-28 01:10:00 No Notes: (Same as: Zofran) MEDICATION WASTE Product Size: 4 mg Product Wasted: ___ mg [facility] Morphine 2019-01-28 01:10:00 No Not es: (Same as:MORPhine Sulfate) [facility] Ondansetron 2019-01-28 01:10:00 No Notes: (Same as: Zofran) MEDICATION WASTE Product Size: 4 mg Product Wasted: ___ mg Inocente [facility] Morphine 2019-01-28 01:10:00 No Not es: (Same as:MORPhine Sulfate) [facility] clopidogrel (PLAVIX) 75 mg tablet 2018-11-25 00:00:00 Yes CAD, multiple vessel 75mg QD Take 1 tablet by mouth daily. [facility] hydroCHLOROthiazide (HYDRODIURIL) 25 mg tablet 2 00:00:00 2019-07-01 00:00:00 No Essential hypertension 25mg QD Take 1 tablet by mouth daily. [facility] famotidine (PEPCID) 20 mg tablet 2018-08-27 00:00:00 Yes Mild acid reflux 20mg Take 1 tablet by mouth 2 times daily as needed for Hea rtburn. [facility] lisinopril (PRINIVIL, ZESTRIL) 40 mg tablet 2018-08-27 00:00 :00 Yes Essential hypertension 20mg QD Take 1/2 tablet by mouth daily. [facility] isosorbide mononitrate (IMDUR) 60 mg extended release tablet 2018-06-14 00:00:00 Yes Essential hypertension 60mg QD Take 1 t ablet by mouth daily. [facility] ranolazine (RANEXA) 1,000 mg extended release tablet 2 00:00:00 Yes CAD, multiple vessel 1000mg Q.5D Take 1 tablet by mouth 2 ti mes daily. [facility] nitroglycerin (NITROSTAT) 2 % ointment 2017-12-07 06:27:05 Yes 1[in_us] Place 1 inch onto the skin. [facility] nitroglycerin (NITRODUR) 0.2 mg/hr patch 2017-12-07 06:27:05 Yes 1{patch} Place 1 patch onto the skin. [facility] nitroglycerin (NITROSTAT) 0.4 MG SL tablet 2017-12-07 06:27:[address] 0.4 mg under the tongue. [facility] pravastatin (PRAVACHOL) 40 MG tablet 2017-12-07 06:27:05 Ye s 80mg Take 80 mg by mouth. [facility] aspirin 325 MG tablet 2017-09-05 00:00:00 Yes TAKE 1 TABLET ONCE A DAY BY MOUTH [facility] isosorbide mononitrate (IMDUR) 60 MG 24 hr tablet 2017-09-05 00:00:00 Yes TAKE 1 TABLET ONCE A DAY BY MOUTH [facility] lisinopril-hydroCHLOROthiazide (PRINZIDE,ZESTORETIC) 10-12.5 mg per tablet 2017-09-05 00:00:00 Yes TAKE 1 TABLET ONCE A DAY BY MOUTH FOR FLUID AND BLOOD PRESSURE [facility] pravastatin (PRAVACHOL) 80 MG tablet 2017-09-05 00:00:00 Ye s TAKE 1 TABLET EVERY EVENING BY MOUTH FOR CHOLESTEROL [facility] Zofran 2017-03-26 17:57:00 No Notes: (Same as: Kathy) MEDICATION WASTE Product Size: 4 mg Product Wasted: ___ mg [facility] Zofran 2017-03-26 17:57:00 No Notes: (Same as: Kathy) MEDICATION WASTE Product Size: 4 mg Product Wasted: ___ mg [facility] 12 HR ranolazine 500 MG Extended Release Tablet [Ranexa] 2017-03-26 16:00:00 No Notes: Same as Ranexa "Do Not Cr ush" [facility] 12 HR ranolazine 500 MG Extended Release Tablet [Ranexa] 2017-03-26 16:00:00 No Notes: Same as Ranexa "Do Not Cr ush" [facility] Saline Flush 0.9% 2017-03-26 14:00:00 No Notes: (Same as: BD Posiflush) [facility] isosorbide mononitrate extended release 2017-03-26 14:00:00 No Notes: (Same as:Imdur) "Do Not Crush" Take on empty stomach/ full glass of water. Do not crush [facility] aspirin 81 mg tablet, enteric coated 2017-03-26 14:00:00 No Notes: Do not crush or chew. (Same As: Ecotrin) [facility] Saline Flush 0.9% 2017-03-26 14:00:00 No Notes: (Same as: BD Posiflush) [facility] isosorbide mononitrate extended release 2017-03-26 14:00:00 No Notes: (Same as:Imdur) "Do Not Crush" Take on empty stomach/ full glass of water. Do not crush [facility] aspirin 81 mg tablet, enteric coated 2017-03-26 14:00:00 No Notes: Do not crush or chew. (Same As: Ecotrin) [facility] Ranexa 2017-03-26 12:05:00 Yes 1,000 mg, PO, BID, 0 Refill(s) [facility] Isosorbide 2017-03-26 12:05:00 Yes 60 mg, PO , BID, 0 Refill(s) [facility] Ranexa 2017-03-26 12:05:00 Yes 1,000 mg, PO, BID, 0 Refill(s) [facility] Isosorbide 2017-03-26 12:05:00 Yes 60 mg, PO , BID, 0 Refill(s) [facility] Saline Flush 0.9% 2017-03-26 09:22:00 No Notes: (Same as: BD Posiflush) [facility] Nitroglycerin 2017-03-26 09:22:00 No Notes: (Same as:Nitroquick, Nitrostat) "Do Not Crush" Sublingual tablet [facility] Acetaminophen 2017-03-26 09:22:00 No Notes: Do not exceed 4 gm/day. (Same as: Tylenol) [facility] Morphine 2017-03-26 09:22:00 No Not es: (Same as:MORPhine Sulfate) [facility] Saline Flush 0.9% 2017-03-26 09:22:00 No Notes: (Same as: BD Posiflush) [facility] Nitroglycerin 2017-03-26 09:22:00 No Notes: (Same as:Nitroquick, Nitrostat) "Do Not Crush" Sublingual tablet [facility] Acetaminophen 2017-03-26 09:22:00 No Notes: Do not exceed 4 gm/day. (Same as: Tylenol) [facility] Morphine 2017-03-26 09:22:00 No Not es: (Same as:MORPhine Sulfate) Inocente Mancuso Aspirin 2017-03-26 08:04:00 No 325 mg, Route: PO, Drug form: TAB, ONCE, Dosing Weight 72.727, kg, Priority: STAT, Start date: 03/26/17 3:04:00 CDT, Stop date: 03/26/17 3:04:00 CDT [facility] cristhian Mancuso Aspirin 2017-03-26 08:04:00 No 325 mg, Route: PO, Drug form: TAB, ONCE, Dosing Weight 72.727, kg, Priority: STAT, Start date: 03/26/17 3:04:00 CDT, Stop date: 03/26/17 3:04:00 CDT [facility] cristhian Perezan 2017-03-26 06:04:00 No 4 mg, Route: IVP, Drug form: INJ, ONCE, Dosing Weight 72.727, kg, Priority: STAT, Start date: 03/26/17 1:04:00 CDT, Stop date: 03/26/17 1:04:[facility] 2017-03-26 06:04:00 No 4 mg, Route: IVP, Drug form: INJ, ONCE, Dosing Weight 72.727, kg, Priority: STAT, Start date: 03/26/17 1:04:00 CDT, Stop date: 03/26/17 1:04:00 [facility] 2017-03-26 05:57:00 No Notes: (Same as: Kathy) MEDICATION WASTE Product Size: 4 mg Product Wasted: ___ mg [facility] 2017-03-26 05:57:00 No Notes: (Same as: Kathy) MEDICATION WASTE Product Size: 4 mg Product Wasted: ___ mg [facility] Tylenol 2016-12-05 02:24:00 No 650 mg, Route: PO, Drug form: TAB, ONCE, Dosing Weight 70.057, kg, Priority: STAT, Start date: 12/04/16 21:24:00 CDT, Stop date: 12/04/16 21:24:00 [facility] T[facility] 2016-12-05 02:24:00 No 650 mg, Route: PO, Drug form: TAB, ONCE, Dosing Weight 70.057, kg, Priority: STAT, Start date: 12/04/16 21:24:00 CDT, Stop date: 12/04/16 21:24:00 CDT Mi milad Mancuso Acetaminophen 300 MG / Codeine Phosphate 30 MG Oral Tablet [Tylenol with Codeine #3] 2016-12-05 02:16:00 Yes 1 - 2 tab, PO, Q6H, PRN Pain, X 4 day, # 32 tab, 0 Refill(s) Inocente Mancuso Acetaminophen 300 MG / Codeine Phosphate 30 MG Oral Tablet [Tylenol with Codeine #3] 2016-12-05 02:16:00 Yes 1 - 2 tab, PO, Q6H, PRN Pain, X 4 day, # 32 tab, 0 Refill(s) Inocente Mancuso clopidogrel 75 mg oral tablet 2016-11-26 15:27:00 Yes 75 mg = 1 tab, PO, Daily, 0 Refill(s) Inocente Mancuso pantoprazole 40 mg oral enteric coated tablet 2016-11-26 15:27:0 0 Yes 40 mg = 1 tab, PO, Before Breakfast, # 30 tab, 0 Refill(s) Inocente Mancuso clopidogrel 75 mg oral tablet 2016-11-26 15:27:00 Yes 75 mg = 1 tab, PO, Daily, 0 Refill(s) Inocente Mancuso pantoprazole 40 mg oral enteric coated tablet 2016-11-26 15:27:0 0 Yes 40 mg = 1 tab, PO, Before Breakfast, # 30 tab, 0 Refill(s) [facility] lisinopril 2016-11-26 14:00:00 No Notes: (Same as: Gabriel Dickstril) [facility] Isosorbide 2016-11-26 14:00:00 No Notes: (Same as:Imdur) "Do Not Crush" Take on empty stomach/ full glass of water. Do not crush [facility] Hydrochlorothiazide 12.5 MG / Lisinopril 10 MG Oral Tablet 2016-11-26 14:00:00 No 1 tab, Rou te: PO, Drug Form: TAB, Dosing Weight 70.909, kg, Daily, Start date: 11/26/16 9:00:00 CDT, Duration: 30 day, Stop date: 12/25/16 9:00:00 CDT [facility] Fluticasone propionate 0.05 MG/ACTUAT Metered Dose Nasal Spr ay [Flonase] 2016-11-26 14:00:00 No Notes: (Same as: Edmund bhatti) [facility] Cetirizine 2016-11-26 14:00:00 No Notes: (S maximiliano As: Zyrtec) [facility] clopidogrel 2016-11-26 14:00:00 No Notes: ( Same As: Plavix) [facility] hydrochlorothiazide 2016-11-26 14:00:00 No Notes: (Same as: Hydrodiuril). Give with food. [facility] Se lehman Aspirin 325 MG Enteric Coated Tablet 2016-11-26 14:00:00 No Notes: (Do Not Crush) Do not crush or chew. [facility] lisinopril 2016-11-26 14:00:00 No Notes: (Same as: Prinivil, Zestril) [facility] Isosorbide 2016-11-26 14:00:00 No Notes: (Same as:Imdur) "Do Not Crush" Take on empty stomach/ full glass of water. Do not crush [facility] Hydrochlorothiazide 12.5 MG / Lisinopril 10 MG Oral Tablet 2016-11-26 14:00:00 No 1 tab, Rou te: PO, Drug Form: TAB, Dosing Weight 70.909, kg, Daily, Start date: 11/26/16 9:00:00 CDT, Duration: 30 day, Stop date: 12/25/16 9:00:00 CDT [facility] Fluticasone propionate 0.05 MG/ACTUAT Metered Dose Nasal Spr ay [Flonase] 2016-11-26 14:00:00 No Notes: (Same as: Edmund perdomoase) [facility] Cetirizine 2016-11-26 14:00:00 No Notes: (S maximiliano As: Zyrtec) [facility] clopidogrel 2016-11-26 14:00:00 No Notes: ( Same As: Plavix) [facility] hydrochlorothiazide 2016-11-26 14:00:00 No Notes: (Same as: Hydrodiuril). Give with food. [facility] Aspirin 325 MG Enteric Coated Tablet 2016-11-26 14:00:00 No Notes: (Do Not Crush) Do not crush or chew. [facility] Pravastatin 2016-11-26 02:00:00 No Notes: ( Same as: Pravachol) [facility] 12 HR ranolazine 500 MG Extended Release Tablet [Ranexa] 2016-11-26 02:00:00 No Notes: Same as Ranexa "Do Not Cr ush" [facility] metoprolol tartrate 2016-11-26 02:00:00 No Notes: (Same as: Lopressor) [facility] heparin 2016-11-26 02:00:00 No Notes: porci ne heparin [facility] Saline Flush 0.9% 2016-11-26 02:00:00 No Notes: (Same as: BD Posiflush) [facility] Pravastatin 2016-11-26 02:00:00 No Notes: ( Same as: Pravachol) [facility] 12 HR ranolazine 500 MG Extended Release Tablet [Ranexa] 2016-11-26 02:00:00 No Notes: Same as Ranexa "Do Not Cr ush" [facility] metoprolol tartrate 2016-11-26 02:00:00 No Notes: (Same as: Lopressor) [facility] heparin 2016-11-26 02:00:00 No Notes: porci ne heparin [facility] Saline Flush 0.9% 2016-11-26 02:00:00 No Notes: (Same as: BD Posiflush) [facility] cetirizine 10 mg oral tablet, dispersible 2016-11-25 22:18:00 Yes 10 mg = 1 tab, PO, Daily, 0 Refill(s) Jose Carlos gavin [facility] Hydrochlorothiazide 12.5 MG / Lisinopril 10 MG Oral Tablet 2016-11-25 22:18:00 Yes 1 tab, PO, Daily, # 30 tab, 0 R efill(s) [facility] cetirizine 10 mg oral tablet, dispersible 2016-11-25 22:18:00 Yes 10 mg = 1 tab, PO, Daily, 0 Refill(s) Jose Carlos lukel [facility] Hydrochlorothiazide 12.5 MG / Lisinopril 10 MG Oral Tablet 2016-11-25 22:18:00 Yes 1 tab, PO, Daily, # 30 tab, 0 R efill(s) Inocente Mancuso Hydrochlorothiazide 12.5 MG / Lisinopril 10 MG Oral Tablet 2016-11-25 22:17:00 No 1 tab, PO, Daily, # 30 tab, 0 R efill(s) Inocente Mancuso Hydrochlorothiazide 12.5 MG / Lisinopril 10 MG Oral Tablet 2016-11-25 22:17:00 No 1 tab, PO, Daily, # 30 tab, 0 R efill(s) Inocente Mimsann Ativan 2016-11-25 20:45:00 No Notes: (Same as: Ativan) Inocente Mimsann Ativan 2016-11-25 20:45:00 No Notes: (Same as: Ativan) Inocente Mancuso Insulin, Aspart, Human 2016-11-25 20:33:00 No Notes: Roll in palms of hands gently; Do not shake vigorously. (Same as: NovoLOG) "single patient use only" WASTE: F/P - Black; E - Municipal Trash Bin Stable for 28 days at room temperature. Expires in days from Date Inocente Mancuso Dextrose 50% Syringe 2016-11-25 20:33:00 No 12.5 gm, 25 mL, Route: IVP, Drug Form: INJ, Dosing Weight 77.273, kg, PRN, PRN Blood Glucose Results, Start date: 11/25/16 15:33:00 CDT, Duration: 30 day, Stop date: 12/25/16 15:32:00 CDT Inocente Mancuso Glucagon 2016-11-25 20:33:00 No 1 mg, Route: IM, Drug form: PDR/INJ, PRN, Dosing Weight 77.273, kg, PRN Blood Glucose Results, Start date: 11/25/16 15:33:00 CDT, Duration: 30 day, Stop date: 12/25/16 15:32:00 CDT Inocente Mancuso Insulin, Aspart, Human 2016-11-25 20:33:00 No Notes: Roll in palms of hands gently; Do not shake vigorously. (Same as: NovoLOG) "single patient use only" WASTE: F/P - Black; E - Municipal Trash Bin Stable for 28 days at room temperature. Expires in days from Date Inocente Mancuso Dextrose 50% Syringe 2016-11-25 20:33:00 No 12.5 gm, 25 mL, Route: IVP, Drug Form: INJ, Dosing Weight 77.273, kg, PRN, PRN Blood Glucose Results, Start date: 11/25/16 15:33:00 CDT, Duration: 30 day, Stop date: 12/25/16 15:32:00 CDT [facility] Glucagon 2016-11-25 20:33:00 No 1 mg, Route: IM, Drug form: PDR/INJ, PRN, Dosing Weight 77.273, kg, PRN Blood Glucose Results, Start date: 11/25/16 15:33:00 CDT, Duration: 30 day, Stop date: 12/25/16 15:32:00 CDT [facility] Saline Flush 0.9% 2016-11-25 20:31:00 No Notes: (Same as: BD Posiflush) [facility] Protonix 2016-11-25 20:31:00 No Notes: Tablet should not be chewed or crushed. (Same as: Protonix) [facility] Morphine 2016-11-25 20:31:00 No Not es: (Same as:MORPhine Sulfate) [facility] Restoril 2016-11-25 20:31:00 No Notes: (Remigio e As: Restoril) [facility] Docusate Sodium 100 MG Oral Capsule [Colace] 2016-11-25 20:31:00 No Notes: (Same as: Colace) (Do Not Crush) [facility] GI cocktail 2016-11-25 20:31:00 No Notes: G.I. Cocktail = antacid with simethicone 22.5 mL - lidocaine viscous 7.5 mL [facility] Hydralazine 2016-11-25 20:31:00 No Notes: (Same as: Apresoline) Push over 5 minutes [facility] Zebulon Zofran 2016-11-25 20:31:00 No Notes: (Same as: Zofran) MEDICATION WASTE Product Size: 4 mg Product Wasted: 0 mg [facility] Zebulon Lopressor 2016-11-25 20:31:00 No Notes: (Same as: Lopressor) Push over 2 minutes [facility] Acetaminophen 2016-11-25 20:31:00 No Notes: Do not exceed 4 gm/day. (Same as: Tylenol) [facility] Acetaminophen 325 MG / Hydrocodone Marly trate 7.5 MG Oral Tablet [[place] 7.5/325] 2016-11-25 20:31:00 No Notes: Same as [place] 325-7.5mg Do not exceed 4gm/day of acetaminophen. Memoria l [facility] Nitroglycerin 2016-11-25 20:31:00 No Notes: (Same as:Nitroquick, Nitrostat) "Do Not Crush" Sublingual tablet [facility] Saline Flush 0.9% 2016-11-25 20:31:00 No Notes: (Same as: BD Posiflush) [facility] Protonix 2016-11-25 20:31:00 No Notes: Tablet should not be chewed or crushed. (Same as: Protonix) [facility] Morphine 2016-11-25 20:31:00 No Not es: (Same as:MORPhine Sulfate) [facility] Restoril 2016-11-25 20:31:00 No Notes: (Remigio e As: Restoril) [facility] Docusate Sodium 100 MG Oral Capsule [Colace] 2016-11-25 20:31:00 No Notes: (Same as: Colace) (Do Not Crush) [facility] GI cocktail 2016-11-25 20:31:00 No Notes: G.I. Cocktail = antacid with simethicone 22.5 mL - lidocaine viscous 7.5 mL [facility] Hydralazine 2016-11-25 20:31:00 No Notes: (Same as: Apresoline) Push over 5 minutes [facility] Zofran 2016-11-25 20:31:00 No Notes: (Same as: Zofran) MEDICATION WASTE Product Size: 4 mg Product Wasted: 0 mg [facility] Lopressor 2016-11-25 20:31:00 No Notes: (Same as: Lopressor) Push over 2 minutes [facility] Acetaminophen 2016-11-25 20:31:00 No Notes: Do not exceed 4 gm/day. (Same as: Tylenol) [facility] Acetaminophen 325 MG / Hydrocodone Marly trate 7.5 MG Oral Tablet [[place] 7.5/325] 2016-11-25 20:31:00 No Notes: Same as [place] 325-7.5mg Do not exceed 4gm/day of acetaminophen. Sergeikeira raya [facility] Nitroglycerin 2016-11-25 20:31:00 No Notes: (Same as:Nitroquick, Nitrostat) "Do Not Crush" Sublingual tablet Inocente Saldana 2016-11-25 12:02:00 No 1 mg, Route: IVP, Drug form: INJ, ONCE, Dosing Weight 77.273, kg, Priority: STAT, Start date: 11/25/16 7:02:00 CDT, Stop date: 11/25/16 7:02:00 CDT Sergei Saldana 2016-11-25 12:02:00 No 1 mg, Route: IVP, Drug form: INJ, ONCE, Dosing Weight 77.273, kg, Priority: STAT, Start date: 11/25/16 7:02:00 CDT, Stop date: 11/25/16 7:02:00 CDT Sergei Mimsann isosorbide mononitrate (IMDUR) 30 MG 24 hr tablet 2016-10-26 23:11:22 Yes 30mg QD Take 30 mg by mouth daily. [facility] LORAZEPAM ORAL 2016-10-26 23:11:22 Yes Take by mouth. [facility] cetirizine (ZYRTEC) 10 MG tablet 2016-10-26 23:11:22 Yes 10mg Take 10 mg by mouth. [facility] fluticasone (FLONASE) 50 mcg/actuation nasal spray 2016-10 23:11:22 Yes 2{spray} 2 sprays by Nasal route. [facility] lisinopril-hydroCHLOROthiazide (PRINZIDE,ZESTORETIC) 20-12.5 mg per tablet 2016-10-26 23:11:22 Yes 1{tbl} Take 1 tablet by m outh. [facility] metoprolol (LOPRESSOR) 25 MG tablet 2016-10-26 23:11:22 Yes 25mg Take 25 mg by mouth. [facility] multivitamin with minerals tablet 2016-10-26 23:11:22 Yes 1{tbl} Take 1 tablet by mouth. [facility] clopidogrel (PLAVIX) 75 mg tablet 2016-10-26 19:16:43 Yes 75mg QD Take 75 mg by mouth daily. [facility] aspirin 81 MG EC tablet 2016-10-26 19:16:43 Yes 81mg QD Take 81 mg by mouth daily. [facility] ranolazine (RANEXA) 500 MG 12 hr tablet 2016-10-26 19:16:43 Yes 500mg Q.5D Take 500 mg by mouth 2 (two) times daily. [facility] metoprolol (TOPROL-XL) 50 MG 24 hr tablet 2016-10-26 19:16:43 Yes 50mg QD Take 50 mg by mouth daily. [facility] pravastatin (PRAVACHOL) 10 MG tablet 2016-10-26 19:16:43 Ye s 10mg QD Take 10 mg by mouth daily. [facility] Fluticasone propionate 0.05 MG/ACTUAT Metered Dose Nasal Spr ay [Flonase] 2016-09-20 14:00:00 No Notes: (Same as: F lonase) [facility] Cetirizine 2016-09-20 14:00:00 No Notes: (S maximiliano As: Zyrtec) [facility] potassium chloride 2016-09-20 14:00:00 No Notes: (Same as: K-Dur 20) "Do Not Crush" With food and full glass of water [facility] Fluticasone propionate 0.05 MG/ACTUAT Metered Dose Nasal Spr ay [Flonase] 2016-09-20 14:00:00 No Notes: (Same as: F lonase) [facility] Cetirizine 2016-09-20 14:00:00 No Notes: (S maximiliano As: Zyrtec) [facility] potassium chloride 2016-09-20 14:00:00 No Notes: (Same as: K-Dur 20) "Do Not Crush" With food and full glass of water [facility] Pravastatin 2016-09-20 02:00:00 No Notes: S maximiliano as Pravachol [facility] metoprolol tartrate 2016-09-20 02:00:00 No Notes: (Same as: Lopressor) [facility] atorvastatin 2016-09-20 02:00:00 No Notes: (Same as: Lipitor) [facility] Pravastatin 2016-09-20 02:00:00 No Notes: S maximiliano as Pravachol [facility] metoprolol tartrate 2016-09-20 02:00:00 No Notes: (Same as: Lopressor) [facility] atorvastatin 2016-09-20 02:00:00 No Notes: (Same as: Lipitor) [facility] 12 HR ranolazine 500 MG Extended Release Tablet [Ranexa] 2016-09-19 22:00:00 No Notes: Same as Ranexa "Do Not Cr ush" [facility] 12 HR ranolazine 500 MG Extended Release Tablet [Ranexa] 2016-09-19 22:00:00 No Notes: Same as Ranexa "Do Not Cr ush" [facility] Isosorbide 2016-09-19 17:00:00 No Notes: (Same as:Imdur) "Do Not Crush" Take on empty stomach/ full glass of water. Do not crush [facility] Isosorbide 2016-09-19 17:00:00 No Notes: (Same as:Imdur) "Do Not Crush" Take on empty stomach/ full glass of water. Do not crush [facility] Nitroglycerin 0.4 MG Sublingual Tablet 2016-09-19 14:58:00 No 0.4 mg, Route: SL, Drug form: TAB, PRN, Dosing Weight 74.205, kg, PRN Chest Pain, Start date: 09/19/16 9:58:00 CDT, Duration: 30 day, Stop date: 10/19/16 9:57:00 CDT [facility] Nitroglycerin 0.4 MG Sublingual Tablet 2016-09-19 14:58:00 No 0.4 mg, Route: , Drug form: TAB, PRN, Dosing Weight 74.205, kg, PRN Chest Pain, Start date: 09/19/16 9:58:00 CDT, Duration: 30 day, Stop date: 10/19/16 9:57:00 CDT [facility] Saline Flush 0.9% 2016-09-19 14:00:00 No Notes: (Same as: BD Posiflush) Inocente Mimsann pantoprazole 2016-09-19 14:00:00 No Notes: For IV push reconstitute with 10 ml 0.9% sodium chloride and push over 2 minutes. (Same as: Protonix) Inocente Zebulon Aspirin 325 MG Enteric Coated Tablet 2016-09-19 14:00:00 No Notes: (Do Not Crush) Do not crush or chew. Mi milad Mancuso Enoxaparin 2016-09-19 14:00:00 No Notes: (S maximiliano as: Lovenox) [facility] clopidogrel 2016-09-19 14:00:00 No Notes: ( Same As: Plavix) Inocente Mimsann Saline Flush 0.9% 2016-09-19 14:00:00 No Notes: (Same as: BD Posiflush) [facility] pantoprazole 2016-09-19 14:00:00 No Notes: For IV push reconstitute with 10 ml 0.9% sodium chloride and push over 2 minutes. (Same as: Protonix) Inocente Mimsann Aspirin 325 MG Enteric Coated Tablet 2016-09-19 14:00:00 No Notes: (Do Not Crush) Do not crush or chew. Mi mil[facility] Enoxaparin 2016-09-19 14:00:00 No Notes: (S maximiliano as: Lovenox) [facility] clopidogrel 2016-09-19 14:00:00 No Notes: ( Same As: Plavix) [facility] Nitroglycerin 2016-09-19 10:58:00 No Notes: (Same as:Nitroquick, Nitrostat) "Do Not Crush" Sublingual tablet [facility] Nitroglycerin 2016-09-19 10:58:00 No Notes: (Same as:Nitroquick, Nitrostat) "Do Not Crush" Sublingual tablet [facility] Hydralazine 2016-09-19 10:14:00 No Notes: (Same as: Apresoline) Push over 5 minutes [facility] Hydralazine 2016-09-19 10:14:00 No Notes: (Same as: Apresoline) Push over 5 minutes [facility] pravastatin 80 mg oral tablet 2016-09-19 08:59:00 Yes 80 mg = 1 tab, PO, Bedtime, 0 Refill(s) Inocente osullivan pravastatin 80 mg oral tablet 2016-09-19 08:59:00 Yes 80 mg = 1 tab, PO, Bedtime, 0 Refill(s) Inocente Fang nn Saline Flush 0.9% 2016-09-19 04:24:00 No Notes: (Same as: BD Posiflush) Inocente Mancuso Acetaminophen 2016-09-19 04:24:00 No Notes: Do not exceed 4 gm/day. (Same as: Tylenol) Inocente Mancuso NS + KCL 20mEq/L 1000ml (Premix) 1,000 mL 2016-09-19 04:24:00 No Notes: PREMIX IV - Do Not Alter WASTE: F/P - Sink; E - Municipal Trash Bin [facility] Saline Flush 0.9% 2016-09-19 04:24:00 No Notes: (Same as: BD Posiflush) Inocente Mancuso Acetaminophen 2016-09-19 04:24:00 No Notes: Do not exceed 4 gm/day. (Same as: Tylenol) Inocente Mancuso NS + KCL 20mEq/L 1000ml (Premix) 1,000 mL 2016-09-19 04:24:00 No Notes: PREMIX IV - Do Not Alter WASTE: F/P - Sink; E - Municipal Trash Bin [facility] Aspirin 2016-09-19 03:54:00 No Notes: Take with food. [facility] Aspirin 2016-09-19 03:54:00 No Notes: Take with food. [facility] Ondansetron 2016-09-19 01:29:00 No Notes: (Same as: Kathy) MEDICATION WASTE Product Size: 4 mg Product Wasted: ___ mg [facility] Morphine 2016-09-19 01:29:00 No Not es: (Same as:MORPhine Sulfate) [facility] potassium chloride 2016-09-19 01:29:00 No Notes: (Same as: K-Dur 20) "Do Not Crush" With food and full glass of water [facility] Ondansetron 2016-09-19 01:29:00 No Notes: (Same as: Mirnafran) MEDICATION WASTE Product Size: 4 mg Product Wasted: ___ mg [facility] Morphine 2016-09-19 01:29:00 No Not es: (Same as:MORPhine Sulfate) Inocente Mimsann potassium chloride 2016-09-19 01:29:00 No Notes: (Same as: K-Dur 20) "Do Not Crush" With food and full glass of water [facility] Saline Flush 0.9% 2016-09-19 00:32:00 No Notes: (Same as: BD Posiflush) [facility] Saline Flush 0.9% 2016-09-19 00:32:00 No Notes: (Same as: BD Posiflush) [facility] Lipitor 2016-09-05 02:00:00 No Notes: (Same As: Lipitor) [facility] Lipitor 2016-09-05 02:00:00 No Notes: (Same As: Lipitor) In[facility] Zebulon Nitroglycerin 0.4 MG Sublingual Tablet 2016-09-04 23:38:17 Yes 0.4 mg, SL, PRN, PRN chest pain, # 100 tab, 0 Refill(s) [facility] Nitroglycerin 0.4 MG Sublingual Tablet 2016-09-04 23:38:17 Yes 0.4 mg, SL, PRN, PRN chest pain, # 100 tab, 0 Refill(s) [facility] isosorbide mononitrate 30 mg oral tablet, extended release 2016-09-04 23:38:09 Yes 60 mg = 2 tab, PO, QAM, # 60 ta b, 0 Refill(s) [facility] isosorbide mononitrate 30 mg oral tablet, extended release 2016-09-04 23:38:09 Yes 60 mg = 2 tab, PO, QAM, # 60 ta b, 0 Refill(s) [facility] clopidogrel 75 mg oral tablet 2016-09-04 23:38:08 Yes 75 mg = 1 tab, PO, Daily, # 30 tab, 2 Refill(s) [facility] clopidogrel 75 mg oral tablet 2016-09-04 23:38:08 Yes 75 mg = 1 tab, PO, Daily, # 30 tab, 2 Refill(s) [facility] atorvastatin 20 MG Oral Tablet [Lipitor] 2016-09-04 23:38:06 Yes 20 mg = 1 tab, PO, Bedtime, # 30 tab, 0 Refill(s) [facility] atorvastatin 20 MG Oral Tablet [Lipitor] 2016-09-04 23:38:06 Yes 20 mg = 1 tab, PO, Bedtime, # 30 tab, 0 Refill(s) [facility] Fluticasone propionate 0.05 MG/ACTUAT Metered Dose Nasal Spr ay [Flonase] 2016-09-04 23:38:00 Yes 100 microgram = 2 spray, Each Affected Nostril, Daily, # 1 ea, 0 Refill(s) Jose Carlos gavin Mancuso cetirizine 10 mg oral tablet 2016-09-04 23:38:00 Yes 10 mg = 1 tab, PO, Daily, # 30 tab, 0 Refill(s) Sergeikeira Mimsann 12 HR ranolazine 500 MG Extended Release Tablet [Ranexa] 2016-09-04 23:38:00 Yes 500 mg, PO, BID, # 60 tab, 0 Ref ill(s) Inocente Mimsann metoprolol tartrate 25 mg oral tablet 2016-09-04 23:38:00 Y es 25 mg, PO, BID, # 60 tab, 0 Refill(s) [facility] Aspirin 325 MG Oral Tablet 2016-09-04 23:38:00 Yes 325 mg = 1 tab, PO, Daily, # 100 tab, 0 Refill(s) [facility] Fluticasone propionate 0.05 MG/ACTUAT Metered Dose Nasal Spr ay [Flonase] 2016-09-04 23:38:00 Yes 100 microgram = 2 spray, Each Affected Nostril, Daily, # 1 ea, 0 Refill(s) Jose Carlos Mancuso cetirizine 10 mg oral tablet 2016-09-04 23:38:00 Yes 10 mg = 1 tab, PO, Daily, # 30 tab, 0 Refill(s) Sergeikeira Mimsann 12 HR ranolazine 500 MG Extended Release Tablet [Ranexa] 2016-09-04 23:38:00 Yes 500 mg, PO, BID, # 60 tab, 0 Ref ill(s) Inocente Zebulon metoprolol tartrate 25 mg oral tablet 2016-09-04 23:38:00 Y es 25 mg, PO, BID, # 60 tab, 0 Refill(s) Inocente Zebulon Aspirin 325 MG Oral Tablet 2016-09-04 23:38:00 Yes 325 mg = 1 tab, PO, Daily, # 100 tab, 0 Refill(s) [facility] Cetirizine 2016-09-04 17:00:00 No Notes: (S maximiliano As: Zyrtec) [facility] Cetirizine 2016-09-04 17:00:00 No Notes: (S maximiliano As: Zyrtec) [facility] Fluticasone propionate 0.05 MG/ACTUAT Metered Dose Nasal Spr ay [Flonase] 2016-09-04 15:00:00 No Notes: (Same as: F lonase) [facility] Fluticasone propionate 0.05 MG/ACTUAT Metered Dose Nasal Spr ay [Flonase] 2016-09-04 15:00:00 No Notes: (Same as: F lonase) [facility] Saline Flush 0.9% 2016-09-04 14:00:00 No Notes: (Same as: BD Posiflush) [facility] Aspirin 325 MG Enteric Coated Tablet 2016-09-04 14:00:00 No Notes: (Do Not Crush) [facility] not [facility]. [facility] Ranexa 2016-09-04 14:00:00 No Notes : Same as Ranexa "Do Not Crush" [facility] metoprolol tartrate 2016-09-04 14:00:00 No Notes: (Same as: Lopressor) [facility] Isosorbide 2016-09-04 14:00:00 No Notes: (Same as:Imdur) "Do Not Crush" Take on empty stomach/ full glass of water. Do not crush [facility] clopidogrel 2016-09-04 14:00:00 No Notes: ( Same As: Plavix) [facility] Saline Flush 0.9% 2016-09-04 14:00:00 No Notes: (Same as: BD Posiflush) [facility] Aspirin 325 MG Enteric Coated Tablet 2016-09-04 14:00:00 No Notes: (Do Not Crush) Do not crush or chew. Mi morigrady [facility] Ranexa 2016-09-04 14:00:00 No Notes : Same as Ranexa "Do Not Crush" [facility] metoprolol tartrate 2016-09-04 14:00:00 No Notes: (Same as: Lopressor) [facility] Isosorbide 2016-09-04 14:00:00 No Notes: (Same as:Imdur) "Do Not Crush" Take on empty stomach/ full glass of water. Do not crush [facility] clopidogrel 2016-09-04 14:00:00 No Notes: ( Same As: Plavix) [facility] Hydralazine 2016-09-04 13:23:00 No Notes: (Same as: Apresoline) Push over 5 minutes [facility] Hydralazine 2016-09-04 13:23:00 No Notes: (Same as: Apresoline) Push over 5 minutes [facility] Enoxaparin 2016-09-04 12:00:00 No Notes: (S maximiliano as: Lovenox) [facility] Enoxaparin 2016-09-04 12:00:00 No Notes: (S maximiliano as: Lovenox) [facility] Saline Flush 0.9% 2016-09-04 11:36:00 No Notes: (Same as: BD Posiflush) [facility] Nitroglycerin 2016-09-04 11:36:00 No Notes: (Same as:Nitroquick, Nitrostat) "Do Not Crush" Sublingual tablet [facility] Morphine 2016-09-04 11:36:00 No Not es: (Same as:MORPhine Sulfate) [facility] Ondansetron 2016-09-04 11:36:00 No Notes: ( Same as: Zofran) [facility] Saline Flush 0.9% 2016-09-04 11:36:00 No Notes: (Same as: BD Posiflush) [facility] Nitroglycerin 2016-09-04 11:36:00 No Notes: (Same as:Nitroquick, Nitrostat) "Do Not Crush" Sublingual tablet [facility] Morphine 2016-09-04 11:36:00 No Not es: (Same as:MORPhine Sulfate) [facility] Ondansetron 2016-09-04 11:36:00 No Notes: ( Same as: Zofran) [facility] Benadryl 2016-09-04 11:30:00 No 25 mg, Route: IVP, ONCE, Dosing Weight 65.909, kg, Priority: STAT, Start date: 09/04/16 6:30:00 CDT, Stop date: 09/04/16 6:30:00 CDT [facility] Benadryl 2016-09-04 11:30:00 No 25 mg, Route: IVP, ONCE, Dosing Weight 65.909, kg, Priority: STAT, Start date: 09/04/16 6:30:00 CDT, Stop date: 09/04/16 6:30:00 CDT [facility] potassium chloride 20 mEq oral tablet, extended release 2016-09-04 11:24:00 No 40 mEq, 2 tab, Route: PO, Drug form: ERTAB, ONCE, Dosing Weight 65.909, kg, Priority: STAT, Start date: 09/04/16 6:24:00 CDT, Stop date: 09/04/16 6:24:00 CDT [facility] potassium chloride 20 mEq oral tablet, extended release 2016-09-04 11:24:00 No 40 mEq, 2 tab, Route: PO, Drug form: ERTAB, ONCE, Dosing Weight 65.909, kg, Priority: STAT, Start date: 09/04/16 6:24:00 CDT, Stop date: 09/04/16 6:24:00 CDT [facility] Nitroglycerin 0.4 MG Sublingual Tablet 2016-09-04 11:20:00 No 0.4 mg, Route: SL, Q5Min, Dosing Weight 65.909, kg, PRN Chest Pain, Priority: STAT, Start date: 09/04/16 6:20:00 CDT, Duration: 3 doses or times, Stop date: Limited # of times [facility] Nitroglycerin 0.4 MG Sublingual Tablet 2016-09-04 11:20:00 No 0.4 mg, Route: SL, Q5Min, Dosing Weight 65.909, kg, PRN Chest Pain, Priority: STAT, Start date: 09/04/16 6:20:00 CDT, Duration: 3 doses or times, Stop date: Limited # of times [facility] Hydralazine 2016-09-04 09:58:00 No Notes: (Same as: Apresoline) Push over 5 minutes [facility] Hydralazine 2016-09-04 09:58:00 No Notes: (Same as: Apresoline) Push over 5 minutes [facility] Aspirin 2016-09-04 09:09:00 No Notes: Take with food. Inocente Chavez 2016-09-04 09:09:00 No Notes: (Same as: Kathy) MEDICATION WASTE Product Size: 4 mg Product Wasted: ___ mg Inocente Mancuso Aspirin 2016-09-04 09:09:00 No Notes: Take with food. Inocente Chavez 2016-09-04 09:09:00 No Notes: (Same as: Kathy) MEDICATION WASTE Product Size: 4 mg Product Wasted: ___ mg Inocente Mancuso Morphine 2016-09-04 09:08:00 No Not es: (Same as:MORPhine Sulfate) Inocente Mancuso Morphine 2016-09-04 09:08:00 No Not es: (Same as:MORPhine Sulfate) Inocente Mancuso predniSONE 10 mg oral tablet 2016-05-18 15:35:00 Yes See Special Instructions, PO, Daily, 6 day regimen: Day 1 - 30 mg (3 tabs) Day 2 - 25 mg (2 1/2 tabs) Day 3 - 20 mg (2 tabs) Day 4 - 15 mg (1 1/2 tabs) Day 5 - 10 mg (1 tab) Day 6 - 5 mg (1/2 tab), X 6 day, # 12 tab, 0 Refill(s) Inocente Mancuso Aspirin 325 MG Oral Tablet 2016-05-18 15:35:00 Yes 325 mg = 1 tab, PO, Daily, 0 Refill(s) Inocente Mancuso isosorbide mononitrate 30 mg oral tablet, extended release 2016-05-18 15:35:00 Yes 60 mg = 2 tab, PO, QAM, # 60 ta b, 0 Refill(s) Inocente Mancuso Amoxicillin 875 MG / Clavulanate 125 MG Oral Tablet [Augment in 875-mg] 2016-05-18 15:35:00 Yes 1 tab, PO, Q12H, X 10 day, # 20 tab, 0 Refill(s) Inocente Mancuso predniSONE 10 mg oral tablet 2016-05-18 15:35:00 Yes See Special Instructions, PO, Daily, 6 day regimen: Day 1 - 30 mg (3 tabs) Day 2 - 25 mg (2 1/2 tabs) Day 3 - 20 mg (2 tabs) Day 4 - 15 mg (1 1/2 tabs) Day 5 - 10 mg (1 tab) Day 6 - 5 mg (1/2 tab), X 6 day, # 12 tab, 0 Refill(s) Inocente Mancuso Aspirin 325 MG Oral Tablet 2016-05-18 15:35:00 Yes 325 mg = 1 tab, PO, Daily, 0 Refill(s) Inocente Mancuso isosorbide mononitrate 30 mg oral tablet, extended release 2016-05-18 15:35:00 Yes 60 mg = 2 tab, PO, QAM, # 60 ta b, 0 Refill(s) Inocente Mancuso Amoxicillin 875 MG / Clavulanate 125 MG Oral Tablet [Augment in 875-mg] 2016-05-18 15:35:00 Yes 1 tab, PO, Q12H, X 10 day, # 20 tab, 0 Refill(s) Inocente aMncuso aspirin 325 mg tablet 2016-05-18 15:00:00 No Notes: Take with food. Inocente Mancuso aspirin 325 mg tablet 2016-05-18 15:00:00 No Notes: Take with food. Inocente Mancuso Xanax 2016-05-18 08:55:00 No Notes: With food or milk (Same as: Xanax) Inocente Mancuso Xanax 2016-05-18 08:55:00 No Notes: With food or milk (Same as: Xanax) Inocente Mancuso Solu-Medrol 2016-05-17 20:00:00 No Notes: (Same as:Solu-MEDROL, A-Methapred) Inocente Mancuso Solu-Medrol 2016-05-17 20:00:00 No Notes: (Same as:Solu-MEDROL, A-Methapred) Inocente Mancuso Levalbuterol 2016-05-17 19:00:00 No Notes: SEE RT DOCUMENTATION (Same as:Xopenex) Non-Formulary Inocente Mancuso Levalbuterol 2016-05-17 19:00:00 No Notes: SEE RT DOCUMENTATION (Same as:Xopenex) Non-Formulary Inocente Mancuso Ativan 2016-05-17 16:50:00 No 1 mg, Route: IVP, Drug form: INJ, ONCE, Dosing Weight 66.903, kg, PRN Anxiety, Priority: STAT, Start date: 05/17/16 10:50:00 HYPERTRICHOLOGIST Inocente Mancuso Ativan 2016-05-17 16:50:00 No 1 mg, Route: IVP, Drug form: INJ, ONCE, Dosing Weight 66.903, kg, PRN Anxiety, Priority: STAT, Start date: 05/17/16 10:50:00 HYPERTRICHOLOGIST Inocente Mancuso Mucinex 2016-05-17 16:02:00 No Notes: (Same as: Guaifenesin LA, Humibid LA, Mucinex) "Do Not Crush" Take medication with plenty of water. Inocente Mancuso Mucinex 2016-05-17 16:02:00 No Notes: (Same as: Guaifenesin LA, Humibid LA, Mucinex) "Do Not Crush" Take medication with plenty of water. Inocente Mancuso Ativan 2016-05-17 15:43:00 No Notes: (Same as: Ativan) Inocente Mancuso Ativan 2016-05-17 15:43:00 No Notes: (Same as: Ativan) Inocente Mancuso isosorbide mononitrate extended release 2016-05-17 15:00:00 No Notes: (Same as:Imdur) "Do Not Crush" Take on empty stomach/ full glass of water. Do not crush Inocente Mancuso isosorbide mononitrate extended release 2016-05-17 15:00:00 No Notes: (Same as:Imdur) "Do Not Crush" Take on empty stomach/ full glass of water. Do not crush Inocente Mancuso DuoNeb inhalation solution 2016-05-17 09:08:00 No Notes: (Same as: Duoneb) Inocente Mancuso DuoNeb inhalation solution 2016-05-17 09:08:00 No Notes: (Same as: Duoneb) Inocente Mancuso Lipitor 2016-05-17 03:00:00 No Notes: (Same As: Lipitor) Inocente Mimsann Lipitor 2016-05-17 03:00:00 No Notes: (Same As: Lipitor) Inocente Mimsann Ambien 2016-05-17 02:16:00 No Notes: (Same As: Ambien) Inocente Mimsann Ambien 2016-05-17 02:16:00 No Notes: (Same As: Ambien) Inocente Mancuso Amoxicillin 875 MG / Clavulanate 125 MG Oral Tablet [Augment in 875-mg] 2016-05-16 22:30:00 No Notes: With food. (Same as: Augmentin 875) Inocente Mimsann Amoxicillin 875 MG / Clavulanate 125 MG Oral Tablet [Augment in 875-mg] 2016-05-16 22:30:00 No Notes: With food. (Same as: Augmentin 875) Inocente Mimsann Solu-Medrol 2016-05-16 22:28:00 No Notes: (Same as:Solu-MEDROL, A-Methapred) [facility] Solu-Medrol 2016-05-16 22:28:00 No Notes: (Same as:Solu-MEDROL, A-Methapred) [facility] Albuterol 0.833 MG/ML / Ipratropium Brom kalen 0.167 MG/ML Inhalant Solution [DuoNeb] 2016-05-16 17:58:00 No Notes: (S maximiliano as: Duoneb) [facility] Albuterol 0.833 MG/ML / Ipratropium Brom kalen 0.167 MG/ML Inhalant Solution [DuoNeb] 2016-05-16 17:58:00 No Notes: (S maximiliano as: Duoneb) [facility] clopidogrel 2016-05-16 15:00:00 No Notes: ( Same As: Plavix) [facility] Ranexa 2016-05-16 15:00:00 No Notes : Same as Ranexa "Do Not Crush" [facility] metoprolol tartrate 2016-05-16 15:00:00 No Notes: (Same as: Lopressor) [facility] Saline Flush 0.9% 2016-05-16 15:00:00 No Notes: Same as: BD Posiflush Sterile [facility] Aspirin 81 MG Chewable Tablet 2016-05-16 15:00:00 No Notes: Take with food. [facility] clopidogrel 2016-05-16 15:00:00 No Notes: ( Same As: Plavix) [facility] Ranexa 2016-05-16 15:00:00 No Notes : Same as Ranexa "Do Not Crush" [facility] metoprolol tartrate 2016-05-16 15:00:00 No Notes: (Same as: Lopressor) [facility] Saline Flush 0.9% 2016-05-16 15:00:00 No Notes: Same as: BD Posiflush Sterile [facility] Aspirin 81 MG Chewable Tablet 2016-05-16 15:00:00 No Notes: Take with food. Inocente Mancuso Ondansetron 2016-05-16 13:24:00 No Notes: (Same as: Kathy) MEDICATION WASTE Product Size: 4 mg Product Wasted: ___ mg Inocente Mancuso Ondansetron 2016-05-16 13:24:00 No Notes: (Same as: Anaan) MEDICATION WASTE Product Size: 4 mg Product Wasted: ___ mg Inocente Mancuso Omnipaque 350 2016-05-16 12:00:00 No Notes: (same as:Omnipaque 350). WASTE: F/P - Black; E - Municipal Trash Bin Inocente Mancuso Enoxaparin 2016-05-16 12:00:00 No Notes: (S maximiliano as: Lovenox) Inocente Mancuso Omnipaque 350 2016-05-16 12:00:00 No Notes: (same as:Omnipaque 350). WASTE: F/P - Black; E - Municipal Trash Bin Inocente Mancuso Enoxaparin 2016-05-16 12:00:00 No Notes: (S maximiliano as: Lovenox) Inocente Mancuso Lisinopril 2016-05-16 11:39:00 No Notes: (Same as: Prinivil, Zestril) Inocente Mancuso Lisinopril 2016-05-16 11:39:00 No Notes: (Same as: ivil, Zestril) [facility] Saline Flush 0.9% 2016-05-16 11:30:00 No Notes: Same as: BD Posiflush Sterile [facility] Morphine 2016-05-16 11:30:00 No Not es: (Same as:MORPhine Sulfate) Inocente Mancuso Nitroglycerin 2016-05-16 11:30:00 No Notes: (Same as:Nitroquick, Nitrostat) "Do Not Crush" Sublingual tablet Inocente Mancuso Saline Flush 0.9% 2016-05-16 11:30:00 No Notes: Same as: BD Posiflush Sterile [facility] Morphine 2016-05-16 11:30:00 No Not es: (Same as:MORPhine Sulfate) [facility] Nitroglycerin 2016-05-16 11:30:00 No Notes: (Same as:Nitroquick, Nitrostat) "Do Not Crush" Sublingual tablet [facility] Potassium Chloride 20 MEQ Extended Release Tablet 2016-05-16 10:29:00 No Notes: (Same as: K-D ur 20) "Do Not Crush" With food and full glass of water [facility] Potassium Chloride 20 MEQ Extended Release Tablet 2016-05-16 10:29:00 No Notes: (Same as: K-D ur 20) "Do Not Crush" With food and full glass of water [facility] Albuterol 0.833 MG/ML / Ipratropium Brom kalen 0.167 MG/ML Inhalant Solution [DuoNeb] 2016-05-16 10:06:00 No Notes: (S maximiliano as: Duoneb) [facility] Albuterol 0.833 MG/ML / Ipratropium Brom kalen 0.167 MG/ML Inhalant Solution [DuoNeb] 2016-05-16 10:06:00 No Notes: (S maximiliano as: Duoneb) [facility] Azithromycin 2016-05-16 10:05:00 No Notes: (Same As: Zithromax IV) [facility] Rocephin 2016-05-16 10:05:00 No Notes: (Same As: Rocephin). Use with 100 mL NS and infuse over 30 min MEDICATION WASTE Product Size: 1000 mg Product Wasted: ___ mg [facility] Azithromycin 2016-05-16 10:05:00 No Notes: (Same As: Zithromax IV) [facility] Rocephin 2016-05-16 10:05:00 No Notes: (Same As: Rocephin). Use with 100 mL NS and infuse over 30 min MEDICATION WASTE Product Size: 1000 mg Product Wasted: ___ mg [facility] Aspirin 325 MG Oral Tablet 2016-05-16 10:03:00 No Notes: Take with food. [facility] Aspirin 325 MG Oral Tablet 2016-05-16 10:03:00 No Notes: Take with food. [facility] Saline Flush 0.9% 2016-05-16 09:07:00 No Notes: Same as: BD Posiflush Sterile [facility] Saline Flush 0.9% 2016-05-16 09:07:00 No Notes: Same as: BD Posiflush Sterile [facility] pantoprazole (PROTONIX) 20 MG tablet 2015-10-05 00:00:00 Ye s Take by mouth. [facility] lisinopril (PRINIVIL,ZESTRIL) 20 MG tablet 2015-10-04 00:00:00 Yes Take by mouth. [facility] metoprolol (LOPRESSOR) 25 MG tablet 2015-10-04 00:00:00 Yes Take by mouth. [facility] multivitamin per tablet 2015-07-05 00:00:00 Yes Take by mouth. [facility] ranolazine (RANEXA) 1,000 mg SR tablet 2015-05-18 00:00:00 Yes Take by mouth. [facility] aspirin 81 MG chewable tablet 2015-05-18 00:00:00 Yes Chew and swallow 1 tablet by mouth daily. [facility] Ranexa 2015-04-24 14:00:00 No Notes : Same as Ranexa "Do Not Crush" [facility] Ranexa 2015-04-24 14:00:00 No Notes : Same as [place] "Do Not Crush" [facility] 12 HR ranolazine 500 MG Extended Release Tablet 2015-04-24 13:05 :00 Yes 1,000 mg = 2 tab, PO, Bedtime, # 60 tab, 0 Refill(s) [facility] 12 HR ranolazine 500 MG Extended Release Tablet 2015-04-24 13:05 :00 Yes 1,000 mg = 2 tab, PO, Bedtime, # 60 tab, 0 Refill(s) [facility] Ranexa 2015-04-24 02:00:00 No Notes : Same as [place] "Do Not Crush" [facility] Ranexa 2015-04-24 02:00:00 No Notes : Same as [place] "Do Not Crush" [facility] Nitroglycerin 2015-04-23 21:48:00 No Notes: (Same as:Nitroquick, Nitrostat) "Do Not Crush" Sublingual tablet [facility] Sodium Chloride 0.154 MEQ/ML Injectable Solution 2015-04-23 21:4 8:00 No 750 mL, Rate: 75 ml/hr, Infu se over: 10 hr, Route: IV, Dosing Weight 66.364 kg, Total Volume: 750, Start date: 04/23/15 16:48:00, Duration: 1 doses or times, Stop date: 04/24/15 2:47:00 [facility] Nitroglycerin 2015-04-23 21:48:00 No Notes: (Same as:Nitroquick, Nitrostat) "Do Not Crush" Sublingual tablet [facility] Sodium Chloride 0.154 MEQ/ML Injectable Solution 2015-04-23 21:4 8:00 No 750 mL, Rate: 75 ml/hr, Infu se over: 10 hr, Route: IV, Dosing Weight 66.364 kg, Total Volume: 750, Start date: 04/23/15 16:48:00, Duration: 1 doses or times, Stop date: 04/24/15 2:47:00 [facility] Docusate Sodium 100 MG Oral Capsule [Colace] 2015-04-23 14:00:00 No Notes: (Same as: Colace) (Do Not Crush) [facility] Docusate Sodium 100 MG Oral Capsule [Colace] 2015-04-23 14:00:00 No Notes: (Same as: Colace) (Do Not Crush) [facility] heparin additive 25,000 unit [12 unit/kg /hr] + Premix Diluent Dextrose 5% 500 mL 2015-04-23 13:27:00 No 500 mL, Rate: 13.42 ml/hr, Infuse over: 37.3 hr, Route: IV, Dosing Weight 55.9 kg, Total Volume: 500 mL, Start date: 04/23/15 8:27:00, Duration: 30 day, Stop date: 05/23/15 8:26:00 [facility] heparin sodium, porcine 1000 UNT/ML Injectable Solution 2015-04-23 13:27:00 No Route: IVP, PRN , 1,700 unit, 1.7 mL, Drug form: INJ, PRN, Heparin Protocol, Start date: 04/23/15 8:27:00 Stop date: 05/23/15 7:26:00, 30 day [facility] heparin additive 25,000 unit [12 unit/kg /hr] + Premix Diluent Dextrose 5% 500 mL 2015-04-23 13:27:00 No 500 mL, Rate: 13.42 ml/hr, Infuse over: 37.3 hr, Route: IV, Dosing Weight 55.9 kg, Total Volume: 500 mL, Start date: 04/23/15 8:27:00, Duration: 30 day, Stop date: 05/23/15 8:26:00 [facility] heparin sodium, porcine 1000 UNT/ML Injectable Solution 2015-04-23 13:27:00 No Route: IVP, PRN , 1,700 unit, 1.7 mL, Drug form: INJ, PRN, Heparin Protocol, Start date: 04/23/15 8:27:00 Stop date: 05/23/15 7:26:00, 30 day [facility] Morphine 2015-04-23 13:09:00 No Not es: (Same as:MORPhine Sulfate) [facility] Morphine 2015-04-23 13:09:00 No Not es: (Same as:MORPhine Sulfate) [facility] Lipitor 2015-04-23 02:00:00 No Notes: (Same As: Lipitor) [facility] Lipitor 2015-04-23 02:00:00 No Notes: (Same As: Lipitor) [facility] Ranexa 2015-04-23 01:00:00 No Notes : Same as [place] "Do Not Crush" [facility] Ranexa 2015-04-23 01:00:00 No Notes : Same as [place] "Do Not Crush" [facility] Tylenol 2015-04-22 19:03:00 No Notes: Do not exceed 4 gm/day. (Same as: Tylenol) [facility] Tylenol 2015-04-22 19:03:00 No Notes: Do not exceed 4 gm/day. (Same as: Tylenol) [facility] Ranexa 2015-04-22 14:00:00 No Notes : Same as [place] "Do Not Crush" [facility] metoprolol tartrate 2015-04-22 14:00:00 No Notes: (Same as: Lopressor) [facility] clopidogrel 2015-04-22 14:00:00 No Notes: ( Same As: Plavix) [facility] Aspirin 2015-04-22 14:00:00 No Notes: Do not crush or chew. (Same As: Ecotrin) [facility] Saline Flush 0.9% 2015-04-22 14:00:00 No Notes: Same as: BD Posiflush Sterile [facility] [place] 2015-04-22 14:00:00 No Notes : Same as [place] "Do Not Crush" [facility] metoprolol tartrate 2015-04-22 14:00:00 No Notes: (Same as: Lopressor) [facility] clopidogrel 2015-04-22 14:00:00 No Notes: ( Same As: Plavix) [facility] Aspirin 2015-04-22 14:00:00 No Notes: Do not crush or chew. (Same As: Ecotrin) [facility] Saline Flush 0.9% 2015-04-22 14:00:00 No Notes: Same as: BD Posiflush Sterile [facility] Enoxaparin 2015-04-22 07:00:00 No Notes: (S maximiliano as: Lovenox) [facility] Enoxaparin 2015-04-22 07:00:00 No Notes: (S maximiliano as: Lovenox) [facility] [place] 2015-04-22 06:44:00 Yes 500 mg, PO, B ID, 0 Refill(s) [facility] metoprolol tartrate 2015-04-22 06:44:00 Yes 25 mg, PO, BID, 0 Refill(s) [facility] [place] 2015-04-22 06:44:00 Yes 500 mg, PO, B ID, 0 Refill(s) [facility] metoprolol tartrate 2015-04-22 06:44:00 Yes 25 mg, PO, BID, 0 Refill(s) [facility] Saline Flush 0.9% 2015-04-22 06:43:00 No Notes: Same as: BD Posiflush Sterile [facility] Nitroglycerin 2015-04-22 06:43:00 No Notes: (Same as:Nitroquick, Nitrostat) "Do Not Crush" Sublingual tablet [facility] Ondansetron 2015-04-22 06:43:00 No Notes: ( Same as: Zofran) [facility] Morphine 2015-04-22 06:43:00 No Not es: (Same as:MORPhine Sulfate) In[facility] Saline Flush 0.9% 2015-04-22 06:43:00 No Notes: Same as: BD Posiflush Sterile Inoc[facility] Mancuso Nitroglycerin 2015-04-22 06:43:00 No Notes: (Same as:Nitroquick, Nitrostat) "Do Not Crush" Sublingual tablet Inoc[facility] Mancuso Ondansetron 2015-04-22 06:43:00 No Notes: ( Same as: Zofran) [facility] M[facility] Morphine 2015-04-22 06:43:00 No Not es: (Same as:MORPhine Sulfate) In[facility] Mancuso Morphine 2015-04-22 05:17:00 No Not es: (Same as:MORPhine Sulfate) [facility] Mancuso Morphine 2015-04-22 05:17:00 No Not es: (Same as:MORPhine Sulfate) In[facility] Mancuso Ondansetron 2015-04-22 02:53:00 No Notes: (Same as: Kathy) MEDICATION WASTE Product Size: 4 mg Product Wasted: ___ mg nIocente Mancuso Ondansetron 2015-04-22 02:53:00 No Notes: (Same as: Kahty) MEDICATION WASTE Product Size: 4 mg Product Wasted: ___ mg In[facility] Mancuso Nitroglycerin 0.02 MG/MG Topical Ointment 2015-04-22 02:32:00 No Notes: (20 mg NTG per gram) (Same as:Nitro-Bid) [facility] M[facility] Nitroglycerin 0.02 MG/MG Topical Ointment 2015-04-22 02:32:00 No Notes: (20 mg NTG per gram) (Same as:Nitro-Bid) In[facility] Mancuso Morphine 2015-04-22 02:26:00 No Not es: (Same as:MORPhine Sulfate) Inoc[facility] Mancuso Morphine 2015-04-22 02:26:00 No Not es: (Same as:MORPhine Sulfate) Inoc[facility] Mancuso nitroglycerin (NITROSTAT) 0.4 MG SL tablet 2015-04-21 00:00:[address] 1 tablet (0.4 mg total) under the tongue every 5 (five) minutes as needed for Chest pain. [facility] pantoprazole (PROTONIX) 40 MG tablet 2015-04-19 00:00:00 Ye s 40mg QD Take 1 tablet (40 mg total) by mouth daily. [facility] Tylenol 2015-02-10 11:51:00 No Notes: Do not exceed 4 gm/day. (Same as: Tylenol) In[facility] Mimsann Tylenol 2015-02-10 11:51:00 No Notes: Do not exceed 4 gm/day. (Same as: Tylenol) [facility] Lipitor 2015-02-10 02:00:00 No Notes: (Same As: Lipitor) [facility] Lipitor 2015-02-10 02:00:00 No Notes: (Same As: Lipitor) [facility] Nitroglycerin 0.4 MG Sublingual Tablet 2015-02-10 00:20:00 No Notes: (Same as:Nitroquick, Nitrostat) "Do Not Crush" Sublingual tablet [facility] Nitroglycerin 0.4 MG Sublingual Tablet 2015-02-10 00:20:00 No Notes: (Same as:Nitroquick, Nitrostat) "Do Not Crush" Sublingual tablet [facility] Nitroglycerin 0.4 MG Sublingual Tablet 2015-02-09 17:02:00 Yes 0.4 mg, SL, PRN, PRN chest pain, # 100 tab, 0 Refill(s) [facility] Nitroglycerin 0.4 MG Sublingual Tablet 2015-02-09 17:02:00 Yes 0.4 mg, SL, PRN, PRN chest pain, # 100 tab, 0 Refill(s) Inocente Mancuso isosorbide mononitrate 60 mg oral tablet, extended release 2015-02-09 15:38:00 Yes 60 mg = 1 tab, PO, Daily, # 30 tab, 0 Refill(s) In[facility] Mancuso clopidogrel 75 mg oral tablet 2015-02-09 15:38:00 Yes 75 mg = 1 tab, PO, Daily, # 30 tab, 2 Refill(s) Lauri [facility] atorvastatin 20 MG Oral Tablet [Lipitor] 2015-02-09 15:38:00 Yes 20 mg = 1 tab, PO, Bedtime, # 30 tab, 0 Refill(s) Inoc[facility] Mancuso carvedilol 25 mg oral tablet 2015-02-09 15:38:00 Yes 25 mg = 1 tab, PO, Q12H, # 60 tab, 0 Refill(s) [facility] amLODIPine 10 mg oral tablet 2015-02-09 15:38:00 Yes 10 mg = 1 tab, PO, Daily, # 30 tab, 0 Refill(s) Lauri dorota [facility] isosorbide mononitrate 60 mg oral tablet, extended release 2015-02-09 15:38:00 Yes 60 mg = 1 tab, PO, Daily, # 30 tab, 0 Refill(s) [facility] clopidogrel 75 mg oral tablet 2015-02-09 15:38:00 Yes 75 mg = 1 tab, PO, Daily, # 30 tab, 2 Refill(s) Natalya rasmussen [facility] atorvastatin 20 MG Oral Tablet [Lipitor] 2015-02-09 15:38:00 Yes 20 mg = 1 tab, PO, Bedtime, # 30 tab, 0 Refill(s) [facility] carvedilol 25 mg oral tablet 2015-02-09 15:38:00 Yes 25 mg = 1 tab, PO, Q12H, # 60 tab, 0 Refill(s) [facility] amLODIPine 10 mg oral tablet 2015-02-09 15:38:00 Yes 10 mg = 1 tab, PO, Daily, # 30 tab, 0 Refill(s) Lauri l [facility] heparin 2015-02-09 05:00:00 No Notes: porci ne heparin [facility] heparin 2015-02-09 05:00:00 No Notes: porci ne heparin [facility] atorvastatin 2015-02-09 02:00:00 No Notes: Same as Lipitor [facility] atorvastatin 2015-02-09 02:00:00 No Notes: Same as Lipitor [facility] Oxycodone Hydrochloride 5 MG Oral Tablet 2015-02-09 01:52:00 No Notes: (Same as: Roxicodone) [facility] Oxycodone Hydrochloride 5 MG Oral Tablet 2015-02-09 01:52:00 No Notes: (Same as: Roxicodone) [facility] Docusate Sodium 100 MG Oral Capsule [Colace] 2015-02-08 14:00:00 No Notes: (Same as: Colace) (Do Not Crush) [facility] sennosides, [facility] 2015-02-08 14:00:00 No Notes: (Same as: Senokot) [facility] Isosorbide 2015-02-08 14:00:00 No Notes: (Same as:Imdur) "Do Not Crush" Take on empty stomach/ full glass of water. Do not crush [facility] clopidogrel 2015-02-08 14:00:00 No Notes: ( Same As: Plavix) [facility] carvedilol 2015-02-08 14:00:00 No 12.5 mg, Route: PO, Drug form: TAB, BID, Dosing Weight 68.182, kg, Start date: 02/08/15 9:00:00, Duration: 30 day, Stop date: 03/09/15 17:00:00 Natalya rasmussen [facility] Aspirin 2015-02-08 14:00:00 No Notes: Take with food. [facility] 2015-02-08 14:00:00 No 10 mg, Route: PO, Drug form: TAB, Daily, Dosing Weight 68.182, kg, Start date: 02/08/15 9:00:00, Duration: 30 day, Stop date: 03/09/15 9:00:00 [facility] lisanjuana Docusate Sodium 100 MG Oral Capsule [Colace] 2015-02-08 14:00:00 No Notes: (Same as: Colace) (Do Not Crush) [facility] sennosides, [facility] 2015-02-08 14:00:00 No Notes: (Same as: Senokot) [facility] Isosorbide 2015-02-08 14:00:00 No Notes: (Same as:Imdur) "Do Not Crush" Take on empty stomach/ full glass of water. Do not crush [facility] clopidogrel 2015-02-08 14:00:00 No Notes: ( Same As: Plavix) [facility] carvedilol 2015-02-08 14:00:00 No 12.5 mg, Route: PO, Drug form: TAB, BID, Dosing Weight 68.182, kg, Start date: 02/08/15 9:00:00, Duration: 30 day, Stop date: 03/09/15 17:00:00 Natalya rasmussen [facility] Aspirin 2015-02-08 14:00:00 No Notes: Take with food. [facility] 2015-02-08 14:00:00 No 10 mg, Route: PO, Drug form: TAB, Daily, Dosing Weight 68.182, kg, Start date: 02/08/15 9:00:00, Duration: 30 day, Stop date: 03/09/15 9:00:00 [facility] Potassium Chloride 20 MEQ Extended Release Tablet 2015-02-08 11:52:00 No Notes: (Same as: K-D ur 20) "Do Not Crush" With food and full glass of water [facility] Potassium Chloride 20 MEQ Extended Release Tablet 2015-02-08 11:52:00 No Notes: (Same as: K-D ur 20) "Do Not Crush" With food and full glass of water [facility] Potassium Chloride 20 MEQ Extended Release Tablet 2015-02-08 09:51:00 No Notes: (Same as: K-D ur 20) "Do Not Crush" With food and full glass of water [facility] Potassium Chloride 20 MEQ Extended Release Tablet 2015-02-08 09:51:00 No Notes: (Same as: K-D ur 20) "Do Not Crush" With food and full glass of water [facility] normal saline 0.9% IV 1,000 mL 2015-02-08 06:07:00 No 1,000 mL, Rate: 150 ml/hr, Infuse over: 6.7 hr, Route: IV, Dosing Weight 71.023 kg, Total Volume: 1,000, Start date: 02/08/15 1:07:00, Duration: 30 day, Stop date: 03/10/15 1:06:00 [facility] normal saline 0.9% IV 1,000 mL 2015-02-08 06:07:00 No 1,000 mL, Rate: 150 ml/hr, Infuse over: 6.7 hr, Route: IV, Dosing Weight 71.023 kg, Total Volume: 1,000, Start date: 02/08/15 1:07:00, Duration: 30 day, Stop date: 03/10/15 1:06:00 [facility] Zofran 2015-02-08 06:06:00 No Notes: (Same as: Zofran) [facility] Zofran 2015-02-08 06:06:00 No Notes: (Same as: Zofran) [facility] Iohexol 2015-02-08 04:23:00 No Notes: (same as:Omnipaque 350). [facility] Iohexol 2015-02-08 04:23:00 No Notes: (same as:Omnipaque 350). [facility] carvedilol 2015-02-08 04:05:00 No Notes: Give with food. (Same As: Coreg) [facility] carvedilol 2015-02-08 04:05:00 No Notes: Give with food. (Same As: Coreg) [facility] carvedilol 2015-02-08 04:00:00 No Notes: Give with food. (Same As: Coreg) [facility] carvedilol 2015-02-08 04:00:00 No Notes: Give with food. (Same As: Coreg) [facility] Morphine 2015-02-08 03:38:00 No Not es: (Same as:MORPhine Sulfate) [facility] Morphine 2015-02-08 03:38:00 No Not es: (Same as:MORPhine Sulfate) [facility] clopidogrel 75 mg oral tablet 2015-02-08 02:15:00 No 75 mg = 1 tab, PO, Daily, 0 Refill(s) [facility] Nitroglycerin 2015-02-08 02:15:00 No 0.4 mg, SL, PRN, 0 Refill(s) [facility] Amlodipine 10 MG Oral Tablet [Norvasc] 2015-02-08 02:15:00 No 10 mg = 1 tab, PO, Daily, 0 Refill(s) [facility] Aspirin 2015-02-08 02:15:00 Yes 81 mg, PO, D aily, 0 Refill(s) [facility] carvedilol 12.5 mg oral tablet 2015-02-08 02:15:00 No 12.5 mg = 1 tab, PO, BID, 0 Refill(s) [facility] Annalisa nn Isosorbide 2015-02-08 02:15:00 No 30 mg, PO , Daily, 0 Refill(s) [facility] clopidogrel 75 mg oral tablet 2015-02-08 02:15:00 No 75 mg = 1 tab, PO, Daily, 0 Refill(s) [facility] Nitroglycerin 2015-02-08 02:15:00 No 0.4 mg, SL, PRN, 0 Refill(s) [facility] Amlodipine 10 MG Oral Tablet [Norvasc] 2015-02-08 02:15:00 No 10 mg = 1 tab, PO, Daily, 0 Refill(s) Inoc[facility] Mancuso Aspirin 2015-02-08 02:15:00 Yes 81 mg, PO, D aily, 0 Refill(s) Inoc[facility] Mancuso carvedilol 12.5 mg oral tablet 2015-02-08 02:15:00 No 12.5 mg = 1 tab, PO, BID, 0 Refill(s) Inocente Fang nn Isosorbide 2015-02-08 02:15:00 No 30 mg, PO , Daily, 0 Refill(s) [facility] Plavix 2015-02-08 00:21:00 No Notes: ( Same as: Plavix) [facility] Plavix 2015-02-08 00:21:00 No Notes: ( Same as: Plavix) [facility] Morphine 2015-02-07 23:52:00 No Not es: (Same as:MORPhine Sulfate) [facility] heparin sodium, porcine 5000 UNT/ML Injectable Solution 2015-02-07 23:52:00 No 3,400 unit, 3.4 mL, Route: IV, Drug form: INJ, ONCE, Dosing Weight 68.182, kg, Priority: STAT, Start date: 02/07/15 18:52:00, Stop date: 02/07/15 18:52:00 [facility] heparin sodium, porcine 1000 UNT/ML Injectable Solution 2015-02-07 23:52:00 No Route: IVP, PRN , 3,400 unit, 3.4 mL, Drug form: INJ, PRN, Heparin Protocol, Start date: 02/07/15 18:52:00 Stop date: 03/09/15 18:51:00, 30 day [facility] heparin additive 25,000 unit [12 unit/kg /hr] + Premix Diluent Dextrose 5% 500 mL 2015-02-07 23:52:00 No 500 mL, Rate: 13.44 ml/hr, Infuse over: 37.2 hr, Route: IV, Dosing Weight 56 kg, Total Volume: 500 mL, Start date: 02/07/15 18:52:00, Duration: 30 day, Stop date: 03/09/15 18:51:00 In[facility] Nitroglycerin 0.02 MG/MG Topical Ointment 2015-02-07 23:52:00 No Notes: 1 gram is approximately 1 inch of nitroglycerin ointment (20 mg NTG per gram) (Same as:Nitro-Bid) [facility] dominik Saline Flush 0.9% 2015-02-07 23:52:00 No Notes: (Same as: BD Posiflush) [facility] Morphine 2015-02-07 23:52:00 No Not es: (Same as:MORPhine Sulfate) [facility] heparin sodium, porcine 5000 UNT/ML Injectable Solution 2015-02-07 23:52:00 No 3,400 unit, 3.4 mL, Route: IV, Drug form: INJ, ONCE, Dosing Weight 68.182, kg, Priority: STAT, Start date: 02/07/15 18:52:00, Stop date: 02/07/15 18:52:00 [facility] heparin sodium, porcine 1000 UNT/ML Injectable Solution 2015-02-07 23:52:00 No Route: IVP, PRN , 3,400 unit, 3.4 mL, Drug form: INJ, PRN, Heparin Protocol, Start date: 02/07/15 18:52:00 Stop date: 03/09/15 18:51:00, 30 day [facility] heparin additive 25,000 unit [12 unit/kg /hr] + Premix Diluent Dextrose 5% 500 mL 2015-02-07 23:52:00 No 500 mL, Rate: 13.44 ml/hr, Infuse over: 37.2 hr, Route: IV, Dosing Weight 56 kg, Total Volume: 500 mL, Start date: 02/07/15 18:52:00, Duration: 30 day, Stop date: 03/09/15 18:51:00 [facility] Nitroglycerin 0.02 MG/MG Topical Ointment 2015-02-07 23:52:00 No Notes: 1 gram is approximately 1 inch of nitroglycerin ointment (20 mg NTG per gram) (Same as:Nitro-Bid) [facility] dominik Saline Flush 0.9% 2015-02-07 23:52:00 No Notes: (Same as: BD Posiflush) [facility] Zofran 2015-02-07 23:40:00 No Notes: (Same as: Zofran) MEDICATION WASTE Product Size: 4 mg Product Wasted: ___ mg Inocente Mancuso Zofran 2015-02-07 23:40:00 No Notes: (Same as: Zofran) MEDICATION WASTE Product Size: 4 mg Product Wasted: ___ mg Inocente Mancuso Aspirin 2015-02-07 21:53:00 No Notes: Take with food. Inoc[facility] Mancuso Aspirin 2015-02-07 21:53:00 No Notes: Take with food. Inocente Mimsann Plavix 2014-07-15 15:00:00 No Notes: (Same As: Plavix) [facility] Amlodipine 2014-07-15 15:00:00 No Notes: (S maximiliano as: Norvasc) Inocente Mimsann Plavix 2014-07-15 15:00:00 No Notes: (Same As: Plavix) Inocente Mancuso Amlodipine 2014-07-15 15:00:00 No Notes: (S maximiliano as: Norvasc) Inocente Mancuso Protonix 2014-07-15 13:30:00 No Notes: Tablet should not be chewed or crushed. (Same as: Protonix) Inocente Mancuso Protonix 2014-07-15 13:30:00 No Notes: Tablet should not be chewed or crushed. (Same as: Protonix) [facility] amLODIPine 5 mg oral tablet 2014-07-14 22:39:00 Yes 5 mg, PO, Daily, # 90 tab, 3 Refill(s) [facility] amLODIPine 5 mg oral tablet 2014-07-14 22:39:00 Yes 5 mg, PO, Daily, # 90 tab, 3 Refill(s) [facility] pravastatin 20 mg oral tablet 2014-07-14 22:36:00 Yes 40 mg = 2 tab, PO, Bedtime, # 90 tab, 3 Refill(s) Sergeior ial [facility] isosorbide mononitrate 30 mg oral tablet, extended release 2014-07-14 22:36:00 Yes 30 mg = 1 tab, PO, Daily, # 90 tab, 3 Refill(s) [facility] clopidogrel 75 MG Oral Tablet [Plavix] 2014-07-14 22:36:00 Yes 75 mg, PO, Daily, # 90 tab, 3 Refill(s) [facility] orial [facility] pravastatin 20 mg oral tablet 2014-07-14 22:36:00 Yes 40 mg = 2 tab, PO, Bedtime, # 90 tab, 3 Refill(s) Jose Carlos Mancuso isosorbide mononitrate 30 mg oral tablet, extended release 2014-07-14 22:36:00 Yes 30 mg = 1 tab, PO, Daily, # 90 tab, 3 Refill(s) Inocente Mancuso clopidogrel 75 MG Oral Tablet [Plavix] 2014-07-14 22:36:00 Yes 75 mg, PO, Daily, # 90 tab, 3 Refill(s) Sergei orial [facility] Plavix 2014-07-14 22:34:00 No Notes: ( Same as: Plavix) Inocente Mancuso Plavix 2014-07-14 22:34:00 No Notes: ( Same as: Plavix) [facility] isosorbide mononitrate extended release 2014-07-14 15:00:00 No Notes: (Same as:Imdur) "Do Not Crush" Take on empty stomach/ full glass of water. Do not crush [facility] isosorbide mononitrate extended release 2014-07-14 15:00:00 No Notes: (Same as:Imdur) "Do Not Crush" Take on empty stomach/ full glass of water. Do not crush [facility] Enoxaparin 2014-07-14 11:00:00 No Notes: (S maximiliano as: Lovenox) [facility] Enoxaparin 2014-07-14 11:00:00 No Notes: (S maximiliano as: Lovenox) [facility] Saline Flush 0.9% 2014-07-14 03:00:00 No 10 ml, Route: IVP, Drug Form: INJ, Dosing Weight 72.727, kg, Q12H, Start date: 07/13/14 21:00:00, Duration: 30 day, Stop date: 08/12/14 9:00:00 [facility] Pravachol 2014-07-14 03:00:00 No Notes: (Sa me as: Pravachol) [facility] carvedilol 2014-07-14 03:00:00 No 3.125 mg, Route: PO, Drug form: TAB, Q12H, Dosing Weight 72.727, kg, Start date: 07/13/14 21:00:00, Duration: 30 day, Stop date: 08/12/14 9:00:00 Natalya rasmussen [facility] Saline Flush 0.9% 2014-07-14 03:00:00 No 10 ml, Route: IVP, Drug Form: INJ, Dosing Weight 72.727, kg, Q12H, Start date: 07/13/14 21:00:00, Duration: 30 day, Stop date: 08/12/14 9:00:00 [facility] Pravachol 2014-07-14 03:00:00 No Notes: (Sa me as: Pravachol) [facility] carvedilol 2014-07-14 03:00:00 No 3.125 mg, Route: PO, Drug form: TAB, Q12H, Dosing Weight 72.727, kg, Start date: 07/13/14 21:00:00, Duration: 30 day, Stop date: 08/12/14 9:00:00 Natalya [facility] eptifibatide 75 mg 2014-07-13 22:52:00 No Notes: (Same as: Integrelin) Final conc = 0.75 mg/mL - Premix Bottle [facility] eptifibatide 75 mg 2014-07-13 22:52:00 No Notes: (Same as: Integrelin) Final conc = 0.75 mg/mL - Premix Bottle [facility] Saline Flush 0.9% 2014-07-13 22:27:00 No 10 ml, Route: IVP, Drug Form: INJ, Dosing Weight 72.727, kg, PRN, PRN Line Flush, Start date: 07/13/14 16:27:00, Duration: 30 day, Stop date: 08/12/14 16:26:00 [facility] Nitroglycerin 2014-07-13 22:27:00 No Notes: (Same as:Nitroquick, Nitrostat) "Do Not Crush" Sublingual tablet [facility] Saline Flush 0.9% 2014-07-13 22:27:00 No 10 ml, Route: IVP, Drug Form: INJ, Dosing Weight 72.727, kg, PRN, PRN Line Flush, Start date: 07/13/14 16:27:00, Duration: 30 day, Stop date: 08/12/14 16:26:00 [facility] Nitroglycerin 2014-07-13 22:27:00 No Notes: (Same as:Nitroquick, Nitrostat) "Do Not Crush" Sublingual tablet [facility] Saline Flush 0.9% 2014-07-13 03:00:00 No Notes: Same as: BD Posiflush Sterile [facility] Saline Flush 0.9% 2014-07-13 03:00:00 No Notes: Same as: BD Posiflush Sterile [facility] K-Dur 20 2014-07-13 00:00:00 No Notes: (Same as: K-Dur 20) "Do Not Crush" With food and full glass of water [facility] K-Dur 20 2014-07-13 00:00:00 No Notes: (Same as: K-Dur 20) "Do Not Crush" With food and full glass of water [facility] Saline Flush 0.9% 2014-07-12 18:27:00 No Notes: Same as: BD Posiflush Sterile [facility] Saline Flush 0.9% 2014-07-12 18:27:00 No Notes: Same as: BD Posiflush Sterile [facility] Saline Flush 0.9% 2014-07-12 15:00:00 No Notes: Same as: BD [facility]lush [facility] pantoprazole 2014-07-12 15:00:00 No Notes: For IV push reconstitute with 10 ml 0.9% sodium chloride and push over 2 minutes. (Same as: Protonix) [facility] metoprolol extended release 2014-07-12 15:00:00 No Notes: (Same as: Toprol XL) Do Not Crush [facility] Aspirin 81 MG Enteric Coated Tablet 2014-07-12 15:00:00 No Notes: Do not crush or chew. (Same As: Ecotrin) [facility] Saline Flush 0.9% 2014-07-12 15:00:00 No Notes: Same as: BD Posiflush Sterile [facility] pant[facility]ole 2014-07-12 15:00:00 No Notes: For IV push reconstitute with 10 ml 0.9% sodium chloride and push over 2 minutes. (Same as: Protonix) [facility] metoprolol extended release 2014-07-12 15:00:00 No Notes: (Same as: Toprol XL) Do Not Crush [facility] Aspirin 81 MG Enteric Coated Tablet 2014-07-12 15:00:00 No Notes: Do not crush or chew. (Same As: Ecotrin) Catalina Mancuso Nitroglycerin 0.02 MG/MG Topical Ointment 2014-07-12 12:00:00 No Notes: 1 gram is approximately 1 inch of nitroglycerin ointment (20 mg NTG per gram) (Same as:Nitro-Bid) Inocente lehman Nitroglycerin 0.02 MG/MG Topical Ointment 2014-07-12 12:00:00 No Notes: 1 gram is approximately 1 inch of nitroglycerin ointment (20 mg NTG per gram) (Same as:Nitro-Bid) [facility] Se lehman Saline Flush 0.9% 2014-07-12 05:14:00 No Notes: Same as: BD Posiflush Sterile [facility] Nitroglycerin 2014-07-12 05:14:00 No Notes: (Same as:Nitroquick, Nitrostat) "Do Not Crush" Sublingual tablet [facility] Ondansetron 2014-07-12 05:14:00 No Notes: ( Same as: Zofran) [facility] Saline Flush 0.9% 2014-07-12 05:14:00 No Notes: Same as: BD Posiflush Sterile [facility] Nitroglycerin 2014-07-12 05:14:00 No Notes: (Same as:Nitroquick, Nitrostat) "Do Not Crush" Sublingual tablet [facility] Ondansetron 2014-07-12 05:14:00 No Notes: ( Same as: Zofran) [facility] Aspirin 81 MG Chewable Tablet 2014-07-12 04:57:00 No 324 mg, Route: PO, Drug form: CHEWTAB, ONCE, Dosing Weight 72.727, kg, Priority: STAT, Start date: 07/11/14 22:57:00, Stop date: 07/11/14 22:57:00 [facility] Aspirin 81 MG Chewable Tablet 2014-07-12 04:57:00 No 324 mg, Route: PO, Drug form: CHEWTAB, ONCE, Dosing Weight 72.727, kg, Priority: STAT, Start date: 07/11/14 22:57:00, Stop date: 07/11/14 22:57:00 [facility] Nitroglycerin 0.02 MG/MG Topical Ointment 2014-07-12 04:46:00 No 0.5 inch, Route: TOP, Drug Form: OINT, Dosing Weight 72.727, kg, ONCE, STAT, Start date: 07/11/14 22:46:00, Stop date: 07/11/14 22:46:00 [facility] Lovenox 2014-07-12 04:46:00 No Notes: Nurse to ensure documentation of patient education per anticoagulation policy. (Same as: Lovenox) [facility] Nitroglycerin 0.02 MG/MG Topical Ointment 2014-07-12 04:46:00 No 0.5 inch, Route: TOP, Drug Form: OINT, Dosing Weight 72.727, kg, ONCE, STAT, Start date: 07/11/14 22:46:00, Stop date: 07/11/14 22:46:00 [facility] Lovenox 2014-07-12 04:46:00 No Notes: Nurse to ensure documentation of patient education per anticoagulation policy. (Same as: Lovenox) [facility] Ondansetron 2014-07-12 02:32:00 No Notes: ( Same as: Zofran) [facility] Saline Flush 0.9% 2014-07-12 02:32:00 No Notes: Same as: BD Posiflush Sterile [facility] Ondansetron 2014-07-12 02:32:00 No Notes: ( Same as: Zofran) [facility] Saline Flush 0.9% 2014-07-12 02:32:00 No Notes: Same as: BD Posiflush Sterile [facility] Omnipaque 350 2014-07-11 17:00:00 No Notes: (same as:Omnipaque 350). [facility] Omnipaque 350 2014-07-11 17:00:00 No Notes: (same as:Omnipaque 350). [facility] Nitroglycerin 2014-07-11 14:53:00 No Notes: (Same as:Nitroquick, Nitrostat) "Do Not Crush" Sublingual tablet [facility] Nitroglycerin 2014-07-11 14:53:00 No Notes: (Same as:Nitroquick, Nitrostat) "Do Not Crush" Sublingual tablet [facility] aspirin 2014-07-11 14:21:00 No Notes: Take with food. [facility] Saline Flush 0.9% 2014-07-11 14:21:00 No Notes: Same as: BD Posiflush Sterile [facility] aspirin 2014-07-11 14:21:00 No Notes: Take with food. [facility] Saline Flush 0.9% 2014-07-11 14:21:00 No Notes: Same as: BD Posiflush Sterile [facility] Norvasc 2014-07-02 15:00:00 No Notes: (Same as: Norvas) [facility] hydrochlorothiazide 25 mg oral tablet 2014-07-02 15:00:00 N o Notes: (Same as: Hydrodiuril) With food. Pippa Mcmahanr 2014-07-02 15:00:00 No 20 mg, 1 tab, Route: PO, Drug form: TAB, Daily, Start date: 07/02/14 9:00:00, Duration: 30 day, Stop date: 07/31/14 9:00:00 [facility] Norvasc 2014-07-02 15:00:00 No Notes: [facility] hydrochlorothiazide 25 mg oral tablet 2014-07-02 15:00:00 N o Notes: (Same as: Hydrodiuril) With food. Pippa Mcmahanr 2014-07-02 15:00:00 No 20 mg, 1 tab, Route: PO, Drug form: TAB, Daily, Start date: 07/02/14 9:00:00, Duration: 30 day, Stop date: 07/31/14 9:00:00 [facility] Aspirin 81 MG Enteric Coated Tablet 2014-07-02 00:03:00 Yes 81 mg = 1 tab, PO, Daily, # 30 tab, 2 Refill(s) [facility] Nitroglycerin 0.4 MG Sublingual Tablet 2014-07-02 00:03:00 Yes 0.4 mg = 1 tab, SL, Q5Min, Chest Pain, # 30 tab, 0 Refill(s) [facility] metoprolol tartrate 25 mg oral tablet 2014-07-02 00:03:00 Y es 25 mg = 1 tab, PO, Q8H, # 90 tab, 2 Refill(s) Inocente Mancuso Amlodipine 5 MG / Hydrochlorothiazide 12 .5 MG / Olmesartan medoxomil 20 MG Oral Tablet [Tribenzor 12/11/11.5] 2014-07-02 00:03:00 Yes 1 tab, PO, Daily, # 30 tab, 2 Refill(s) Inocente li Aspirin 81 MG Enteric Coated Tablet 2014-07-02 00:03:00 Yes 81 mg = 1 tab, PO, Daily, # 30 tab, 2 Refill(s) [facility] Nitroglycerin 0.4 MG Sublingual Tablet 2014-07-02 00:03:00 Yes 0.4 mg = 1 tab, SL, Q5Min, Chest Pain, # 30 tab, 0 Refill(s) [facility] metoprolol tartrate 25 mg oral tablet 2014-07-02 00:03:00 Y es 25 mg = 1 tab, PO, Q8H, # 90 tab, 2 Refill(s) [facility] Amlodipine 5 MG / Hydrochlorothiazide 12 .5 MG / Olmesartan medoxomil 20 MG Oral Tablet [Tribenzor 12/11/11.5] 2014-07-02 00:03:00 Yes 1 tab, PO, Daily, # 30 tab, 2 Refill(s) [facility] Livan li metoprolol tartrate 25 mg oral tablet 2014-07-02 00:02:00 N o 25 mg = 1 tab, PO, Q8H, 0 Refill(s) [facility] Her boyce Nitroglycerin 0.4 MG Sublingual Tablet 2014-07-02 00:02:00 No 0.4 mg = 1 tab, SL, Q5Min, Chest Pain, 0 Refill(s) [facility] metoprolol tartrate 25 mg oral tablet 2014-07-02 00:02:00 N o 25 mg = 1 tab, PO, Q8H, 0 Refill(s) [facility] Her boyce Nitroglycerin 0.4 MG Sublingual Tablet 2014-07-02 00:02:00 No 0.4 mg = 1 tab, SL, Q5Min, Chest Pain, 0 Refill(s) [facility] Aspirin 81 MG Enteric Coated Tablet 2014-07-01 23:46:00 No 81 mg = 1 tab, PO, Daily, # 0 tab, 0 Refill(s) [facility] orig[facility] Mancuso Aspirin 81 MG Enteric Coated Tablet 2014-07-01 23:46:00 No 81 mg = 1 tab, PO, Daily, # 0 tab, 0 Refill(s) [facility] cristhian Mancuso Potassium Chloride 2014-07-01 16:10:00 No Notes: (Same as: K-Dur 20) "Do Not Crush" With food and full glass of water [facility] Potassium Chloride 2014-07-01 16:10:00 No Notes: (Same as: K-Dur 20) "Do Not Crush" With food and full glass of water [facility] metoprolol tartrate 2014-07-01 16:00:00 No Notes: (Same as: Lopressor) [facility] metoprolol tartrate 2014-07-01 16:00:00 No Notes: (Same as: Lopressor) [facility] Morphine 2014-07-01 15:58:00 No Not es: (Same as:MORPhine Sulfate) [facility] Zofran 2014-07-01 15:58:00 No Notes: (Same as: Zofran) [facility] Morphine 2014-07-01 15:58:00 No Not es: (Same as:MORPhine Sulfate) [facility] Zofran 2014-07-01 15:58:00 No Notes: (Same as: Zofran) [facility] Saline Flush 0.9% 2014-07-01 15:00:00 No Notes: Same as: BD Posiflush Sterile [facility] Aspirin 325 MG Enteric Coated Tablet 2014-07-01 15:00:00 No Notes: (Do Not Crush) Do not crush or chew. [facility] Nitroglycerin 0.02 MG/MG Topical Ointment 2014-07-01 15:00:00 No Notes: 1 gram is approximately 1 inch of nitroglycerin ointment (20 mg NTG per gram) (Same as:Nitro-Bid) [facility] dominik Lovenox 2014-07-01 15:00:00 No Notes: (Same as: Lovenox) [facility] Amlodipine 5 MG / Hydrochlorothiazide 12 .5 MG / Olmesartan medoxomil 20 MG Oral Tablet [Tribenzor 20/5/12.5] 2014-07-01 15:00:00 No 1 tab, Route: PO, Dosing Weight 70.455, kg, Daily, Start date: 07/01/14 9:00:00, Duration: 30 day, Stop date: 07/30/14 9:00:00 Lauri Mancuso Saline Flush 0.9% 2014-07-01 15:00:00 No Notes: Same as: BD Posiflush Sterile [facility] Aspirin 325 MG Enteric Coated Tablet 2014-07-01 15:00:00 No Notes: (Do Not Crush) [facility] not crush or chew. [facility] Nitroglycerin 0.02 MG/MG Topical Ointment 2014-07-01 15:00:00 No Notes: 1 gram is approximately 1 inch of nitroglycerin ointment (20 mg NTG per gram) (Same as:Nitro-Bid) [facility] dominik Lovenox 2014-07-01 15:00:00 No Notes: (Same as: Lovenox) [facility] Amlodipine 5 MG / Hydrochlorothiazide 12 .5 MG / Olmesartan medoxomil 20 MG Oral Tablet [Tribenzor 20/5/12.5] 2014-07-01 15:00:00 No 1 tab, Route: PO, Dosing Weight 70.455, kg, Daily, Start date: 07/01/14 9:00:00, Duration: 30 day, Stop date: 07/30/14 9:00:00 Lauri Mancuso Saline Flush 0.9% 2014-07-01 14:44:00 No Notes: Same as: BD Posiflush Sterile [facility] Nitroglycerin 2014-07-01 14:44:00 No Notes: (Same as:Nitroquick, Nitrostat) "Do Not Crush" Sublingual tablet [facility] Saline Flush 0.9% 2014-07-01 14:44:00 No Notes: Same as: BD Posiflush Sterile [facility] Nitroglycerin 2014-07-01 14:44:00 No Notes: (Same as:Nitroquick, Nitrostat) "Do Not Crush" Sublingual tablet [facility] Nitroglycerin 0.02 MG/MG Topical Ointment 2014-07-01 13:25:00 No Notes: 1 gram is approximately 1 inch of nitroglycerin ointment (20 mg NTG per gram) (Same as:Nitro-Bid) [facility] dominik Nitroglycerin 0.02 MG/MG Topical Ointment 2014-07-01 13:25:00 No Notes: 1 gram is approximately 1 inch of nitroglycerin ointment (20 mg NTG per gram) (Same as:Nitro-Bid) Inocente lehman hydrochlorothiazide 25 mg oral tablet 2014-07-01 13:13:00 N o Notes: (Same as: Hydrodiuril) With food. Pippa Atkinsontorri 2014-07-01 13:13:00 No Notes: (Same as: Norvasc) Inocente Mancuso hydrochlorothiazide 25 mg oral tablet 2014-07-01 13:13:00 N o Notes: (Same as: Hydrodiuril) With food. Sergeilaurel Jassojennifer 2014-07-01 13:13:00 No Notes: (Same as: Norvasc) Inocente Mcmahanr 2014-07-01 13:12:00 No 20 mg, 1 tab, Route: PO, Drug form: TAB, ONCE, Start date: 07/01/14 7:12:00, Stop date: 07/01/14 7:12:00 Inocente Mcmahanr 2014-07-01 13:12:00 No 20 mg, 1 tab, Route: PO, Drug form: TAB, ONCE, Start date: 07/01/14 7:12:00, Stop date: 07/01/14 7:12:00 Inocente Mancuso metoprolol tartrate 2014-07-01 12:53:00 No 25 mg, Route: PO, Drug form: TAB, ONCE, Dosing Weight 70.455, kg, Priority: STAT, Start date: 07/01/14 6:53:00, Stop date: 07/01/14 6:53:00 Sergei cristhian [facility] Amlodipine 5 MG / Hydrochlorothiazide 12 .5 MG / Olmesartan medoxomil 20 MG Oral Tablet [Tribenzor 20/5/12.5] 2014-07-01 12:53:00 No 1 tab, Route: PO, Dosing Weight 70.455, kg, ONCE, Start date: 07/01/14 6:53:00, Stop date: 07/01/14 6:53:00 Inocente Mancuso metoprolol tartrate 2014-07-01 12:53:00 No 25 mg, Route: PO, Drug form: TAB, ONCE, Dosing Weight 70.455, kg, Priority: STAT, Start date: 07/01/14 6:53:00, Stop date: 07/01/14 6:53:00 [facility] cristhian Mancuso Amlodipine 5 MG / Hydrochlorothiazide 12 .5 MG / Olmesartan medoxomil 20 MG Oral Tablet [Tribenzor 20/5/12.5] 2014-07-01 12:53:00 No 1 tab, Route: PO, Dosing Weight 70.455, kg, ONCE, Start date: 07/01/14 6:53:00, Stop date: 07/01/14 6:53:00 Inocente Mancuso Hydralazine Hydrochloride 10 MG Oral Tablet 2014-03-01 03:02:00 Yes 10 mg = 1 tab, PO, Q6H, # 40 tab, 0 Refill(s) Inocente Mancuso Hydralazine Hydrochloride 10 MG Oral Tablet 2014-03-01 03:02:00 Yes 10 mg = 1 tab, PO, Q6H, # 40 tab, 0 Refill(s) [facility] Hydralazine Hydrochloride 10 MG Oral Tablet 2014-03-01 01:54:00 No 25 mg, Route: PO, ONCE, Dosing Weight 67.273, kg, Start date: 02/28/14 20:54:00, Stop date: 02/28/14 20:54:00 [facility] Livan li Hydralazine Hydrochloride 10 MG Oral Tablet 2014-03-01 01:54:00 No 25 mg, Route: PO, ONCE, Dosing Weight 67.273, kg, Start date: 02/28/14 20:54:00, Stop date: 02/28/14 20:54:00 [facility] Livan sanjuana Acetaminophen 325 MG / Hydrocodone Bitartrate 5 MG Oral Tabl et [[place] 5/325] 2014-03-01 01:40:00 Yes 1-2 tab, PO, Q4-6H, Pain, # 30 tab, 0 Refill(s) [facility] Zebulon Penicillin V Potassium 500 MG Oral Tablet 2014-03-01 01:40:00 Yes 500 mg = 1 tab, PO, Q6H, # 40 tab, 0 Refill(s) [facility] Acetaminophen 325 MG / Hydrocodone Bitartrate 5 MG Oral Tabl et [[place] 5/325] 2014-03-01 01:40:00 Yes 1-2 tab, PO, Q4-6H, Pain, # 30 tab, 0 Refill(s) [facility] Penicillin V Potassium 500 MG Oral Tablet 2014-03-01 01:40:00 Yes 500 mg = 1 tab, PO, Q6H, # 40 tab, 0 Refill(s) Inocente Mancuso 2 ML penicillin G benzathine [id number] UNT/ML Prefilled Syringe 2014-03-01 01:33:00 No Route: IM, ONCE, Dosing Weight 67.273, kg, Start date: 02/28/14 20:33:00, Stop date: 02/28/14 20:33:00 Inocente Mancuso 2 ML penicillin G benzathine [id number] UNT/ML Prefilled Syringe 2014-03-01 01:33:00 No Route: IM, ONCE, Dosing Weight 67.273, kg, Start date: 02/28/14 20:33:00, Stop date: 02/28/14 20:33:00 Inocente Mancuso Morphine 2014-03-01 01:32:00 No 6 mg, Route: IM, Drug form: INJ, ONCE, Dosing Weight 67.273, kg, Priority: STAT, Start date: 02/28/14 20:32:00, Stop date: 02/28/14 20:32:00 [facility] 2014-03-01 01:32:00 No 6 mg, Route: IM, Drug form: INJ, ONCE, Dosing Weight 67.273, kg, Priority: STAT, Start date: 02/28/14 20:32:00, Stop date: 02/28/14 20:32:00 [facility] Aml[facility] 5 MG / Hydrochlorothiazide 12 .5 MG / Olmesartan medoxomil 20 MG Oral Tablet [Tribenzor 20/5/12.5] 2014-03-01 01:11:00 Yes 0 Refill(s) [facility] Amlodipine 5 MG / Hydrochlorothiazide 12 .5 MG / Olmesartan medoxomil 20 MG Oral Tablet [Tribenzor 20/5/12.5] 2014-03-01 01:11:00 Yes 0 Refill(s) [facility] Immunizations Ordered Immunization Name Filled Immunization Name Date Status Comments Source Tdap (Tetanus Toxoid, Reduced Diphtheria Toxoid And Acellular Pertussis, Absorbed) 2019-05-14 00:00:00 Completed [facility] PPV 23 (Pneumococcal Polysaccharide 23 Valent) 2019-04 00:00:00 Completed [facility] Influenza, Vaccine<FLUCELVAX>(Multi-Dose) 2019-05-01 00:00 :00 Completed [facility] Influenza, Injectable, Quadrivalent, Preservative Free 2018-04-18 00:00:00 Completed [facility] Influenza <Unspecified> 2018-03-25 00:00:00 Completed [facility] PPD 2015-05-03 00:00:00 Completed [facility] Vital Signs Vital Name Observation Time Observation Value Comments Source Weight 2019-12-10 22:07:00 180 [lb_av] [facility] BMI (Body Mass Index) 2019-12-10 22:07:00 34.0 kg/m2 [facility] Systolic blood pressure 2019-10-10 15:22:33 138 mm[Hg] [facility] Diastolic blood pressure 2019-10-10 15:22:33 82 mm[Hg] [facility] Heart rate 2019-10-10 15:22:33 76 /min [facility] Body temperature 2019-10-10 15:22:33 36.61 Yvette [facility] ton [facility]oroastrian Respiratory rate 2019-10-10 15:22:33 18 /min [facility] Oxygen saturation in Arterial blood by Pulse oximetry 10-09 15:22:33 96 /min [facility] Body height 2019-10-09 13:46:00 154.9 cm [facility] Body weight 2019-10-09 13:46:00 86.183 kg [facility] BMI 2019-10-09 13:46:00 35.90 kg/m2 [facility] Systolic blood pressure 2019-06-16 14:07:00 139 mm[Hg] [facility] Diastolic blood pressure 2019-06-16 14:07:00 94 mm[Hg] [facility] Heart rate 2019-06-16 14:07:00 92 /min [facility] Body temperature 2019-06-16 14:07:00 36.5 Yvette [facility] Respiratory rate 2019-06-16 14:07:00 18 /min [facility] Body height 2019-06-16 14:07:00 156.2 cm [facility] Body weight 2019-06-16 14:07:00 86.183 kg [facility] BMI 2019-06-16 14:07:00 35.32 kg/m2 [facility] Heart Rate 2019-01-28 21:05:00 [facility] Temperature Oral (F) 2019-01-28 21:05:00 97.8 F [facility] Systolic (mm Hg) 2019-01-28 21:05:00 Jose Carlos rial [facility] Diastolic (mm Hg) 2019-01-28 21:05:00 [facility] Respitory Rate 2019-01-28 21:05:00 [facility] Respitory Rate 2019-01-28 13:24:00 [facility] Systolic (mm Hg) 2019-01-28 13:24:00 Jose Carlos [facility] Diastolic (mm Hg) 2019-01-28 13:24:00 [facility] Temperature Oral (F) 2019-01-28 13:24:00 97.7 F [facility] Heart Rate 2019-01-28 13:24:00 [facility] Height 2019-01-28 10:56:00 154.94 cm [facility] Respitory Rate 2019-01-28 08:58:00 [facility] Heart Rate 2019-01-28 08:58:00 [facility] Systolic (mm Hg) 2019-01-28 08:58:00 Jose Carlos [facility] Diastolic (mm Hg) 2019-01-28 08:58:00 [facility] Temperature Oral (F) 2019-01-28 08:58:00 98.4 F [facility] BMI Calculated 2019-01-28 04:31:00 [facility] Height 2019-01-28 04:31:00 154.94 cm [facility] Weight 2019-01-28 04:31:00 [facility] Weight 2019-01-28 04:15:00 [facility] BMI Calculated 2019-01-28 04:15:00 [facility] Height 2019-01-28 04:15:00 154.94 cm [facility] Weight 2019-01-28 00:06:00 [facility] Heart Rate 2017-03-26 22:20:00 [facility] Respitory Rate 2017-03-26 22:20:00 [facility] Temperature Oral (F) 2017-03-26 22:20:00 98.6 F [facility] Systolic (mm Hg) 2017-03-26 22:20:00 Jose Carlos rial [facility] Diastolic (mm Hg) 2017-03-26 22:20:00 [facility] Respitory Rate 2017-03-26 20:52:00 [facility] Heart Rate 2017-03-26 20:52:00 [facility] Temperature Oral (F) 2017-03-26 20:52:00 98.0 F [facility] Systolic (mm Hg) 2017-03-26 20:52:00 Jose Carlos [facility] Diastolic (mm Hg) 2017-03-26 20:52:00 [facility] Systolic (mm Hg) 2017-03-26 16:47:00 Jose Carlos [facility] Diastolic (mm Hg) 2017-03-26 16:47:00 [facility] Respitory Rate 2017-03-26 16:47:00 [facility] Heart Rate 2017-03-26 16:47:00 [facility] Temperature Oral (F) 2017-03-26 16:47:00 98.0 F [facility] Height 2017-03-26 10:53:00 157.48 cm [facility] Weight 2017-03-26 05:33:00 [facility] Height 2017-03-26 05:33:00 160.02 cm [facility] BMI Calculated 2017-03-26 05:33:00 [facility] Heart Rate 2016-12-05 02:49:00 [facility] Respitory Rate 2016-12-05 02:49:00 [facility] Systolic (mm Hg) 2016-12-05 02:49:00 Jose Carlos rial [facility] Diastolic (mm Hg) 2016-12-05 02:49:00 [facility] Weight 2016-12-05 00:51:00 [facility] Systolic (mm Hg) 2016-12-05 00:51:00 Jose Carlos [facility] Diastolic (mm Hg) 2016-12-05 00:51:00 [facility] Respitory Rate 2016-12-05 00:51:00 [facility] Heart Rate 2016-12-05 00:51:00 [facility] Temperature Oral (F) 2016-12-05 00:51:00 98.3 F [facility] Height 2016-12-05 00:51:00 157.48 cm [facility] BMI Calculated 2016-12-05 00:51:00 [facility] Systolic (mm Hg) 2016-11-26 17:32:00 Jose Carlos rial [facility] Diastolic (mm Hg) 2016-11-26 17:32:00 [facility] Respitory Rate 2016-11-26 17:32:00 [facility] Heart Rate 2016-11-26 17:32:00 [facility] Temperature Oral (F) 2016-11-26 17:32:00 98.1 F [facility] Systolic (mm Hg) 2016-11-26 11:53:00 Jose Carlos rial [facility] Diastolic (mm Hg) 2016-11-26 11:53:00 [facility] Heart Rate 2016-11-26 11:53:00 [facility] Respitory Rate 2016-11-26 11:53:00 [facility] Temperature Oral (F) 2016-11-26 11:53:00 97.5 F [facility] Respitory Rate 2016-11-26 08:00:00 [facility] Heart Rate 2016-11-26 08:00:00 [facility] Systolic (mm Hg) 2016-11-26 08:00:00 Jose Carlos [facility] Diastolic (mm Hg) 2016-11-26 08:00:00 [facility] Temperature Oral (F) 2016-11-26 08:00:00 97.7 F [facility] BMI Calculated 2016-11-25 22:31:00 [facility] Weight 2016-11-25 22:31:00 [facility] Height 2016-11-25 22:31:00 157.48 cm [facility] BMI Calculated 2016-11-25 10:31:00 [facility] Weight 2016-11-25 10:31:00 [facility] Height 2016-11-25 10:31:00 165.1 cm [facility] Temperature Oral (F) 2016-09-19 16:24:00 97.9 F [facility] Systolic (mm Hg) 2016-09-19 16:24:00 Jose Carlos [facility] Diastolic (mm Hg) 2016-09-19 16:24:00 [facility] Respitory Rate 2016-09-19 16:24:00 [facility] Systolic (mm Hg) 2016-09-19 12:10:00 Jose Carlos [facility] Diastolic (mm Hg) 2016-09-19 12:10:00 [facility] Respitory Rate 2016-09-19 12:10:00 [facility] Temperature Oral (F) 2016-09-19 12:10:00 98.1 F [facility] BMI Calculated 2016-09-19 10:32:00 [facility] Height 2016-09-19 10:32:00 152.4 cm [facility] Weight 2016-09-19 10:32:00 [facility] Temperature Oral (F) 2016-09-19 09:43:00 97.8 F [facility] Respitory Rate 2016-09-19 09:43:00 [facility] Systolic (mm Hg) 2016-09-19 09:43:00 Jose Carlos [facility] Diastolic (mm Hg) 2016-09-19 09:43:00 [facility] Height 2016-09-18 23:15:00 157.48 cm [facility] Heart Rate 2016-09-18 23:15:00 [facility] Weight 2016-09-18 23:15:00 [facility] BMI Calculated 2016-09-18 23:15:00 [facility] Temperature Oral (F) 2016-09-05 00:32:00 98.5 F [facility] Heart Rate 2016-09-05 00:32:00 [facility] Respitory Rate 2016-09-05 00:32:00 [facility] Systolic (mm Hg) 2016-09-05 00:32:00 Jose Carlos [facility] Diastolic (mm Hg) 2016-09-05 00:32:00 [facility] Respitory Rate 2016-09-04 20:15:00 [facility] Systolic (mm Hg) 2016-09-04 20:15:00 Jose Carlos [facility] Diastolic (mm Hg) 2016-09-04 20:15:00 [facility] Heart Rate 2016-09-04 20:15:00 [facility] Temperature Oral (F) 2016-09-04 20:15:00 98.5 F [facility] Temperature Oral (F) 2016-09-04 16:08:00 98.7 F [facility] Heart Rate 2016-09-04 16:08:00 [facility] Respitory Rate 2016-09-04 16:08:00 [facility] Systolic (mm Hg) 2016-09-04 16:08:00 Jose Carlos rial Zebul[facility] Diastolic (mm Hg) 2016-09-04 16:08:00 [facility] Height 2016-09-04 12:54:00 154.94 cm [facility] BMI Calculated 2016-09-04 12:54:00 [facility] Weight 2016-09-04 12:54:00 [facility] Weight 2016-09-04 08:46:00 [facility] Height 2016-09-04 08:46:00 154.94 cm [facility] BMI Calculated 2016-09-04 08:46:00 [facility] Systolic (mm Hg) 2016-05-18 12:35:00 Jose Carlos rial Zebulon Diastolic (mm Hg) 2016-05-18 12:35:00 [facility] Respitory Rate 2016-05-18 12:35:00 [facility] Heart Rate 2016-05-18 12:35:00 [facility] Temperature Oral (F) 2016-05-18 12:35:00 97.9 F [facility] Systolic (mm Hg) 2016-05-18 09:35:00 Jose Carlos rial [facility]ol[facility] Diastolic (mm Hg) 2016-05-18 09:35:00 [facility] Heart Rate 2016-05-18 09:35:00 [facility] Respitory Rate 2016-05-18 09:35:00 [facility] Temperature Oral (F) 2016-05-18 09:35:00 98 F [facility] Respitory Rate 2016-05-18 05:55:00 [facility] Heart Rate 2016-05-18 05:55:00 [facility] Systolic (mm Hg) 2016-05-18 05:55:00 Jose Carlos [facility] Diastolic (mm Hg) 2016-05-18 05:55:00 [facility] Temperature Oral (F) 2016-05-18 05:55:00 97.7 F [facility] BMI Calculated 2016-05-16 15:30:00 [facility] Height 2016-05-16 15:30:00 154.94 cm [facility] Weight 2016-05-16 15:30:00 [facility] Weight 2016-05-16 09:02:00 [facility] BMI Calculated 2016-05-16 09:02:00 [facility] Height 2016-05-16 09:02:00 167.64 cm [facility] Systolic (mm Hg) 2015-04-24 13:03:00 Jose [facility] Diastolic (mm Hg) 2015-04-24 13:03:00 [facility] Respitory Rate 2015-04-24 13:03:00 [facility] Temperature Oral (F) 2015-04-24 13:03:00 97.6 F [facility] Heart Rate 2015-04-24 13:03:00 [facility] Heart Rate 2015-04-24 10:20:00 [facility] Temperature Oral (F) 2015-04-24 10:20:00 97.8 F [facility] Systolic (mm Hg) 2015-04-24 10:20:00 Jose [facility] Diastolic (mm Hg) 2015-04-24 10:20:00 [facility] Respitory Rate 2015-04-24 10:20:00 [facility] Respitory Rate 2015-04-24 04:37:00 [facility] Systolic (mm Hg) 2015-04-24 04:37:00 Jose [facility] Diastolic (mm Hg) 2015-04-24 04:37:00 [facility] Heart Rate 2015-04-24 04:37:00 [facility] Temperature Oral (F) 2015-04-24 04:37:00 98 F [facility] Weight 2015-04-22 15:56:00 [facility] BMI Calculated 2015-04-22 15:56:00 [facility] Height 2015-04-22 15:56:00 156.21 cm [facility] Height 2015-04-22 00:05:00 154.94 cm [facility] BMI Calculated 2015-04-22 00:05:00 [facility] Weight 2015-04-22 00:05:00 [facility] Temperature Oral (F) 2015-02-11 16:00:00 98.4 F [facility] Systolic (mm Hg) 2015-02-11 16:00:00 [facility] Diastolic (mm Hg) 2015-02-11 16:00:00 [facility] Systolic (mm Hg) 2015-02-11 13:00:00 [facility] Diastolic (mm Hg) 2015-02-11 13:00:00 [facility] Temperature Oral (F) 2015-02-11 13:00:00 98.2 F [facility] Systolic (mm Hg) 2015-02-11 12:00:00 [facility] Diastolic (mm Hg) 2015-02-11 12:00:00 [facility] Temperature Oral (F) 2015-02-11 05:25:00 98.0 F [facility] Respitory Rate 2015-02-11 01:11:00 [facility] Respitory Rate 2015-02-10 20:00:00 [facility] Height 2015-02-08 03:25:00 154.94 cm [facility] Weight 2015-02-08 03:25:00 [facility] BMI Calculated 2015-02-08 03:25:00 [facility] Weight 2015-02-07 18:33:00 [facility] Height 2015-02-07 18:33:00 154.94 cm [facility] BMI Calculated 2015-02-07 18:33:00 [facility] Heart Rate 2015-02-07 18:33:00 [facility] Respitory Rate 2014-07-14 23:00:00 [facility] Diastolic (mm Hg) 2014-07-14 22:00:00 [facility] Systolic (mm Hg) 2014-07-14 22:00:00 Jose [facility] Respitory Rate 2014-07-14 22:00:00 [facility] Systolic (mm Hg) 2014-07-14 21:00:00 Jose [facility] Diastolic (mm Hg) 2014-07-14 21:00:00 [facility] Respitory Rate 2014-07-14 21:00:00 [facility] Systolic (mm Hg) 2014-07-14 20:00:00 Jose [facility] Diastolic (mm Hg) 2014-07-14 20:00:00 [facility] Temperature Oral (F) 2014-07-14 18:00:00 98.5 F [facility] Temperature Oral (F) 2014-07-14 14:00:00 98.3 F [facility] Weight 2014-07-14 11:25:00 [facility] Temperature Oral (F) 2014-07-14 10:00:00 98.1 F [facility] Weight 2014-07-13 11:31:00 [facility] Weight 2014-07-12 07:20:00 [facility] BMI Calculated 2014-07-12 06:50:00 [facility] Height 2014-07-12 06:50:00 154.94 cm [facility] Heart Rate 2014-07-12 06:17:00 [facility] Heart Rate 2014-07-12 05:27:00 [facility] Heart Rate 2014-07-12 05:09:00 [facility] Height 2014-07-12 01:35:00 154.94 cm [facility] BMI Calculated 2014-07-12 01:35:00 [facility] Systolic (mm Hg) 2014-07-11 18:45:00 Jose [facility] Respitory Rate 2014-07-11 18:45:00 [facility] Diastolic (mm Hg) 2014-07-11 18:45:00 [facility] Respitory Rate 2014-07-11 18:12:00 [facility] Diastolic (mm Hg) 2014-07-11 18:12:00 [facility] Systolic (mm Hg) 2014-07-11 18:12:00 Jose [facility] Respitory Rate 2014-07-11 17:14:00 [facility] Systolic (mm Hg) 2014-07-11 17:14:00 [facility] Diastolic (mm Hg) 2014-07-11 17:14:00 [facility] Temperature Oral (F) 2014-07-11 14:12:00 97.3 F [facility] Heart Rate 2014-07-11 14:12:00 [facility] Height 2014-07-11 14:12:00 154.94 cm [facility] BMI Calculated 2014-07-11 14:12:00 [facility] Weight 2014-07-11 14:12:00 [facility] Diastolic (mm Hg) 2014-07-01 23:55:00 [facility] Respitory Rate 2014-07-01 23:55:00 [facility] Systolic (mm Hg) 2014-07-01 23:55:00 Jose [facility] Diastolic (mm Hg) 2014-07-01 22:48:00 [facility] Respitory Rate 2014-07-01 22:48:00 [facility] Systolic (mm Hg) 2014-07-01 22:48:00 Jose [facility] Diastolic (mm Hg) 2014-07-01 22:00:00 [facility] Systolic (mm Hg) 2014-07-01 22:00:00 [facility] Respitory Rate 2014-07-01 22:00:00 [facility] Temperature Oral (F) 2014-07-01 11:03:00 97.1 F [facility] Heart Rate 2014-07-01 11:03:00 [facility] Height 2014-07-01 11:03:00 167.64 cm [facility] BMI Calculated 2014-07-01 11:03:00 [facility] Weight 2014-07-01 11:03:00 [facility] Systolic (mm Hg) 2014-06-13 10:07:00 Jose [facility] Diastolic (mm Hg) 2014-06-13 10:07:00 [facility] Respitory Rate 2014-06-13 10:07:00 [facility] Respitory Rate 2014-06-13 09:07:00 [facility] Heart Rate 2014-06-13 09:07:00 [facility] Diastolic (mm Hg) 2014-06-13 09:07:00 [facility] Temperature Oral (F) 2014-06-13 09:07:00 98.2 F [facility] Systolic (mm Hg) 2014-06-13 09:07:00 [facility] Height 2014-06-13 09:07:00 154.94 cm [facility] BMI Calculated 2014-06-13 09:07:00 [facility] Weight 2014-06-13 09:07:00 [facility] Systolic (mm Hg) 2014-03-01 02:51:00 [facility] Respitory Rate 2014-03-01 02:51:00 [facility] Diastolic (mm Hg) 2014-03-01 02:51:00 [facility] Heart Rate 2014-03-01 02:51:00 [facility] Temperature Oral (F) 2014-03-01 02:51:00 97.6 F [facility] Temperature Oral (F) 2014-03-01 01:53:00 98.9 F [facility] Heart Rate 2014-03-01 01:53:00 [facility] Respitory Rate 2014-03-01 01:53:00 [facility] Diastolic (mm Hg) 2014-03-01 01:53:00 [facility] Systolic (mm Hg) 2014-03-01 01:53:00 [facility] Height 2014-03-01 01:08:00 154.94 cm [facility] BMI Calculated 2014-03-01 01:08:00 [facility] Weight 2014-03-01 01:08:00 [facility] Temperature Oral (F) 2014-03-01 01:08:00 98.2 F [facility] Respitory Rate 2014-03-01 01:08:00 [facility] Diastolic (mm Hg) 2014-03-01 01:08:00 [facility] Heart Rate 2014-03-01 01:08:00 [facility] Systolic (mm Hg) 2014-03-01 01:08:00 [facility] Procedures Procedure Date / Time Performed Performing Clinician Sourc e HC COMPLETE BLD COUNT W/AUTO DIFF 2019-10-10 05:53:00 Cristy Araiza COMPREHENSIVE METABOLIC PANEL 2019-10-10 05:53:00 Pritesh Araiza ESTIMATED GFR 2019-10-10 05:53:00 Pritesh Araiza ECG 12-LEAD 2019-10-10 05:24:52 Pritesh Araiza TROPONIN 2019-10-09 20:50:00 Pritesh Araiza COVID-19 QUALITATIVE PCR 2019-10-09 16:45:00 Pritesh Araiza TROPONIN 2019-10-09 16:44:00 Joycelyn Bragg TTE COMPLETE, WO CONTRAST, W DOPPLER ([id number]) 2019-10-09 16:4 0:[address] ANGIOGRAM PE CHEST 2019-10-09 16:00:40 Pritesh Araizaist ESTIMATED GFR 2019-10-09 14:48:00 Pritesh Araiza COMPREHENSIVE METABOLIC PANEL 2019-10-09 14:48:00 Pritesh Araiza [facility] CRITICAL CARE, E/M 30-74 MINUTES 2019-10-09 14:16:48 Jack Araiza ECG ED PRELIMINARY INTERPRETATION 2019-10-09 14:16:48 Cristy Araiza XR CHEST 1 VW PORTABLE 2019-10-09 14:12:39 Lito Morillo HC COMPLETE BLD COUNT W/AUTO DIFF 2019-10-09 13:56:00 Julia Morillo se B NATRIURETIC PEPTIDE 2019-10-09 13:56:00 Lito Morillo TROPONIN 2019-10-09 13:56:00 Lito Morillo on Zoroastrian ECG 12-LEAD 2019-10-09 13:43:07 Pritesh Araiza URINALYSIS 2019-05-14 13:38:00 Shyam Almanza [facility] URINALYSIS 2019-05-14 13:38:00 Shyam Almanza [facility] SJOGREN'S AB 2019-05-14 12:50:00 Shyam Almanza ANTICARDIO G,M,A 2019-05-14 12:50:00 Shyam Almanza [facility] JOSE L VIPER VENOM TIME; DILUTED, LUPUS 2019-05-14 12:50:00 Shyam Martinez [facility] ANTI DSDNA BY CRITHIDIA 2019-05-14 12:50:00 Shyam Almanza [facility] CREATINE KINASE (CK) 2019-05-14 12:50:00 Shyam Almanza [facility] LIVER PROFILE 2019-05-14 12:50:00 Shyam Almanza BASIC METABOLIC PANEL 2019-05-14 12:50:00 [facility] CBC/DIFF 2019-05-14 12:50:00 Shyam Almanza C-REACTIVE PROTEIN HIGH SENSITIVITY (CARDIAC) 2019-05-14 12: 50:00 Shyam Almanza [facility] HEPATITIS PANEL 2019-05-14 12:50:00 Shyam Almanza [facility] CBC 2019-05-14 12:50:00 Shyam Almanza [facility] Cardiac catheterisation, right heart [facility] section [facility] n Hysterectomy [facility] Stent placement [facility] Tonsillectomy [facility] Tubal ligation [facility] Plan of Care Planned Activity Planned Date Details Comments Source Future Scheduled Test 2020-04-14 00:00:00 CORONARY ARTERY DI SEASE AGE 18 AND UP [code = CORONARY ARTERY DISEASE AGE 18 AND UP] [facility] Scheduled Test 2020-03-25 00:00:00 IMM Influenza Seas onal Mar to August (>/= 19 yrs) [code = IMM Influenza Seasonal Mar to August (>/= 19 yrs)] [facility] Scheduled Test 2020-02-24 00:00:00 INFLUENZA VACCINE (#1) [code = INFLUENZA VACCINE (#1)] [facility] Scheduled Test 2020-01-24 00:00:00 INFLUENZA VACCINE [code = INFLUENZA VACCINE] [facility] Scheduled Test 2019-11-04 00:00:00 BREAST CANCER SCRE ENING [code = BREAST CANCER SCREENING] [facility] Scheduled Test 2019-11-04 00:00:00 COLONOSCOPY SCREEN ING [code = COLONOSCOPY SCREENING] [facility] Scheduled Test 2019-11-04 00:00:00 SHINGLES VACCINES (#1) [code = SHINGLES VACCINES (#1)] [facility] Scheduled Test 2019-11-04 00:00:00 Screening for flo gnant neoplasm of colon (procedure) [code = 377878722] [facility] Scheduled Test 2018-04-19 00:00:00 Lipid panel (proce dure) [code = 23337519] [facility] Future Scheduled Test 2009 00:00:00 Breast Cancer Scrn (Yearly) [code = Breast Cancer Scrn (Yearly)] [facility] Scheduled Test 1990 00:00:00 Screening for flo gnant neoplasm of cervix (procedure) [code = 972271013] [facility] Scheduled Test 1990 00:00:00 Screening for flo gnant neoplasm of cervix (procedure) [code = 048122938] [facility] Future Scheduled Test 1975-11-04 00:00:00 PNEUMOCOCCAL VACCI NE 0-64 YRS (1 of 1 - PPSV23) [code = PNEUMOCOCCAL VACCINE 0-64 YRS (1 of 1 - PPSV23)] [facility] Future Scheduled Test 1969 00:00:00 Screening for flo gnant neoplasm of breast (procedure) [code = 907250446] [facility] [place] Future Scheduled Test 1969 00:00:00 Screening for flo gnant neoplasm of colon (procedure) [code = 247650648] [facility] [place] Instructions [facility] Encounters Start Date/Time End Date/Time Encounter Type Admission Type [facility] Care Department Encounter ID Source 2019-12-10 21:50:00 2019-12-11 02:30:00 Departed Emergency Room 1 KHRIS RODRIGUEZ [facility] [id number] [facility] 2019-10-09 00:00:00 2019-10-10 00:00:00 Outpatient TRISHA MASTERS [facility] [id number] [facility] 2019-07-31 00:00:00 2019-07-31 00:00:00 Outpatient [facility] [id number] [facility] 2019-07-08 00:00:00 2019-07-08 00:00:00 Outpatient [facility] [id number] [facility] 2019-07-08 00:00:00 2019-07-08 00:00:00 Outpatient [facility] [id number] [facility] 2019-06-24 00:00:00 2019-06-24 00:00:00 Outpatient [facility] [id number] [facility] 2019-06-20 00:00:00 2019-06-20 00:00:00 Outpatient [facility] [id number] [facility] 2019-06-16 14:04:46 2019-06-16 14:04:46 Outpatient [facility] [id number] [facility] 2019-05-28 00:00:00 2019-05-28 00:00:00 Outpatient [facility] [id number] [facility] 2019-05-21 00:00:00 2019-05-21 00:00:00 Outpatient [facility] [id number] [facility] 2019-05-14 12:43:56 2019-05-14 12:43:56 Outpatient [facility] [id number] [facility] 2019-05-14 11:22:53 2019-05-14 11:22:53 Outpatient [facility] [id number] [facility] 2019-05-14 08:33:49 2019-05-14 08:33:49 Outpatient [facility] [id number] [facility] 2019-05-14 00:00:00 2019-05-14 00:00:00 Outpatient [facility] [id number] [facility] 2019-05-14 00:00:00 2019-05-14 00:00:00 Outpatient [facility] [id number] [facility] 2019-05-12 00:00:00 2019-05-12 00:00:00 Outpatient [facility] [id number] [facility] 2019-05-01 09:38:19 2019-05-01 09:38:19 Outpatient [facility] [id number] [facility] 2019-05-01 00:00:00 2019-05-01 00:00:00 Outpatient [facility] [id number] [facility] 2019-05-01 00:00:00 2019-05-01 00:00:00 Outpatient [facility] [id number] [facility] 2019-04-30 09:14:56 2019-04-30 09:14:56 Outpatient [facility] [id number] [facility] 2019-04-14 14:34:15 2019-04-14 14:34:15 Outpatient [facility] [id number] [facility] 2019-04-14 12:21:44 2019-04-14 12:21:44 Outpatient [facility] [id number] [facility] 2019-04-14 00:00:00 2019-04-14 00:00:00 Outpatient [facility] [id number] [facility] 2019-04-09 09:21:33 2019-04-09 09:21:33 Outpatient [facility] [id number] [facility] 2019-03-28 11:31:00 2019-03-28 11:31:00 Outpatient [facility] [id number] [facility] 2019-03-25 00:00:00 2019-03-25 00:00:00 Outpatient [facility] [id number] [facility] 2019-03-19 07:29:36 2019-03-19 07:29:36 Outpatient [facility] [id number] [facility] 2019-02-18 00:00:00 2019-02-18 00:00:00 Outpatient [facility] [id number] [facility] 2019-01-28 20:04:00 2019-01-28 20:04:00 Emergency [facility] [id number] [facility] 2019-01-27 19:02:25 2019-01-28 19:28:00 Outpatient Ra joanie Mccullough [facility] [id number] 2019-01-27 19:02:25 2019-01-28 19:28:00 Outpatient Ra joanie Mccullough [facility] [id number] 2019-01-27 19:02:00 2019-01-27 19:02:00 Outpatient [facility] MED [address] [facility] 2019-01-17 09:18:04 2019-01-17 09:18:04 Outpatient [facility] [id number] [facility] 2018-12-11 00:00:00 2018-12-11 00:00:00 Outpatient [facility] [id number] [facility] 2018-12-05 00:00:00 2018-12-05 00:00:00 Outpatient [facility] [id number] [facility] 2018-11-22 00:00:00 2018-11-22 00:00:00 Outpatient [facility] [id number] [facility] 2018-11-13 00:00:00 2018-11-13 00:00:00 Outpatient [facility] [id number] [facility] 2018-10-25 11:03:02 2018-10-25 11:03:02 Outpatient [facility] [id number] [facility] 2018-09-19 00:00:00 2018-09-19 00:00:00 Outpatient [facility] [id number] [facility] 2018-09-09 00:00:00 2018-09-09 00:00:00 Outpatient [facility] [id number] [facility] 2018-08-26 19:43:52 2018-08-26 19:43:52 Emergency [facility] [id number] [facility] 2018-08-26 18:38:07 2018-08-26 18:38:07 Emergency [facility] [id number] [facility] 2018-08-26 18:31:38 2018-08-26 18:31:38 Outpatient [facility] [id number] [facility] 2018-08-07 08:02:53 2018-08-07 08:02:53 Outpatient [facility] [id number] [facility] 2018-07-23 00:00:00 2018-07-23 00:00:00 Outpatient [facility] [id number] [facility] 2018-07-23 00:00:00 2018-07-23 00:00:00 Outpatient [facility] [id number] [facility] 2018-07-11 09:30:58 2018-07-11 09:30:58 Outpatient [facility] [id number] [facility] 2018-07-11 08:23:19 2018-07-11 08:23:19 Outpatient [facility] [id number] [facility] 2018-06-26 11:03:18 2018-06-26 11:03:18 Outpatient [facility] [id number] [facility] 2018-06-14 11:36:18 2018-06-14 11:36:18 Outpatient [facility] [id number] [facility] 2018-06-06 09:41:53 2018-06-06 09:41:53 Outpatient [facility] [id number] [facility] 2018-06-04 13:09:13 2018-06-04 13:09:13 Outpatient [facility] [id number] [facility] 2018-05-27 00:00:00 2018-05-27 00:00:00 Outpatient [facility] [id number] [facility] 2018-05-24 00:00:00 2018-05-24 00:00:00 Outpatient [facility] [id number] [facility] 2018-05-23 13:59:45 2018-05-23 13:59:45 Outpatient [facility] [id number] [facility] 2018-05-10 13:47:58 2018-05-10 13:47:58 Outpatient [facility] [id number] [facility] 2017-08-17 20:57:28 2017-08-17 20:57:28 Emergency [facility] [id number] [facility] 2017-08-17 17:14:35 2017-08-17 17:14:35 Emergency [facility] [id number] [facility] 2017-06-20 14:40:00 2017-06-21 23:59:59 Outpatient MHMIS EMILY MHMISCHER [id number] 2017-06-20 14:40:00 2017-06-21 23:59:59 Outpatient MHMIS EMILY MHMISCHER [id number] 2017-03-26 00:27:00 2017-03-26 17:17:00 Outpatient Glen Cummings [facility] [id number] 2017-03-26 00:27:00 2017-03-26 17:17:00 Outpatient Glen Cummings [facility] [id number] 2016-12-04 19:32:00 2016-12-04 21:52:00 Outpatient Dorota Cervantes [facility] [id number] 2016-12-04 19:32:00 2016-12-04 21:52:00 Outpatient Dorota Cervantes [facility] [id number] 2016-11-25 05:29:00 2016-11-26 12:32:00 Outpatient Rishi Sánchez [facility] [id number] 2016-11-25 05:29:00 2016-11-26 12:32:00 Outpatient Rishi Sánchez [facility] [id number] 2016-11-20 04:13:28 2016-11-20 04:13:28 Emergency [facility] [id number] [facility] 2016-11-20 02:22:32 2016-11-20 02:22:32 Emergency [facility] [id number] [facility] 2016-10-27 00:11:00 2016-10-27 00:11:00 Emergency [facility] [id number] [facility] 2016-09-18 18:14:00 2016-09-19 14:38:00 Outpatient Guillermo Gentile [facility] [id number] 2016-09-18 18:14:00 2016-09-19 14:38:00 Outpatient Guillermo Gentile [facility] [id number] 2016-09-04 03:42:00 2016-09-04 20:50:00 Outpatient Arturo[id number] 2016-09-04 03:42:00 2016-09-04 20:50:00 [id number] 2016-05-16 02:58:00 2016-05-18 12:58:00 [facility] [id number] 2016-05-16 02:58:00 2016-05-18 12:58:00 Outpatient Crystal Pete [facility] [id number] 2015-04-21 19:01:00 2015-04-24 11:23:00 Outpatient Denia Morris [facility] [id number] 2015-04-21 19:01:00 2015-04-24 11:23:00 Outpatient Denia Morris [facility] [id number] 2015-02-07 12:43:00 2015-02-11 14:30:00 Outpatient John Hull [facility] [id number] 2015-02-07 12:43:00 2015-02-11 14:30:00 Outpatient Gaby Hullter Blairprabhu [facility] [id number] 2014-07-11 19:33:00 2014-07-14 17:59:00 Outpatient Se Worthington [facility] [id number] 2014-07-11 19:33:00 2014-07-14 17:59:00 Outpatient Se Worthington [facility] [id number] 2014-07-11 08:11:00 2014-07-11 13:09:00 Outpatient Glenda Wall [facility] [id number] 2014-07-11 08:11:00 2014-07-11 13:09:00 Outpatient Glenda Wall [facility] [id number] 2014-07-01 05:03:00 2014-07-01 18:58:00 Outpatient Alize Esposito [facility] [id number] 2014-07-01 05:03:00 2014-07-01 18:58:00 Outpatient Alize Esposito [facility] [id number] 2014-06-13 03:01:00 2014-06-13 05:29:00 Outpatient Woodrow PerezIE [facility] [id number] 2014-06-13 03:01:00 2014-06-13 05:29:00 Outpatient Woodrow PerezIE [facility] [id number] 2014-02-28 19:35:00 2014-02-28 22:11:00 Outpatient Joanie Jacobs [facility] [id number] 2014-02-28 19:35:00 2014-02-28 22:11:00 Outpatient Joanie Jacobs [facility] [id number] 2014-01-19 19:51:00 2014-01-19 20:22:00 Outpatient Fransisco Treivno [facility] [id number] 2014-01-19 19:51:00 2014-01-19 20:22:00 Outpatient Fransisco Trevino [facility] [id number] Results Test Description Test Time Test Comments Results Result Comments Source CBC W/AUTO DIFF 2020-02-17 17:00:00 Test Item WHITE BLOOD CELL (test code = WBC) 7.11 x10 3/uL 4.5-11.0 N RED BLOOD CELL (test code = RBC) 3.41 x10 6/uL 3.54-5.02 L HEMOGLOBIN (test code = HGB) 12.5 g/dL 11.0-15.0 N HEMATOCRIT (test code = HCT) 36.5 % 33.0-45.0 N MEAN CELL VOLUME (test code = MCV) 107.0 fL 81.0-99.0 H MEAN CELL HGB (test code = MCH) 36.7 pg 27.0-33.0 H MEAN CELL HGB CONCETRATION (test code = MCHC) 34.2 g/dL 33.0-37. 0 N RED CELL DISTRIBUTION WIDTH CV (test code = RDW) 14.3 % 11.5- 14.5 N RED CELL DISTRIBUTION WIDTH SD (test code = RDW-SD) 56.2 fL 37 .0-54.0 H PLATELET COUNT (test code = PLT) 274 x10 3/uL 150-400 N MEAN PLATELET VOLUME (test code = MPV) 9.9 fL 7.0-9.0 H NEUTROPHIL % (test code = NT%) 37.8 % 56.0-77.0 L IMMATURE GRANULOCYTE % (test code = IG%) 0.3 % 0.0-2.0 N LYMPHOCYTE % (test code = LY%) 51.5 % 14.0-32.0 H MONOCYTE % (test code = MO%) 9.0 % 4.8-9.0 N EOSINOPHIL % (test code = EO%) 1.3 % 0.3-3.7 N BASOPHIL % (test code = BA%) 0.1 % 0.0-2.0 N NUCLEATED RBC % (test code = NRBC%) 0.0 % 0-0 N NEUTROPHIL # (test code = NT#) 2.69 x10 3/uL 2.0-7.6 N IMMATURE GRANULOCYTE # (test code = IG#) 0.02 x10 3/uL 0.00-0.03 N LYMPHOCYTE # (test code = LY#) 3.66 x10 3/uL 1.0-3.8 N MONOCYTE # (test code = MO#) 0.64 x10 3/uL 0.1-0.8 N EOSINOPHIL # (test code = EO#) 0.09 x10 3/uL 0.0-0.2 N BASOPHIL # (test code = BA#) 0.01 x10 3/uL 0.0-0.2 N NUCLEATED RBC # (test code = NRBC#) 0.00 x10 3/uL 0.0-0.1 N MANUAL DIFF REQUIRED (test code = MDIFF) NO BASIC METABOLIC [id number] 07:56:00* Test Item Value Reference Range Interpretation Comments SODIUM (test code = NA) 143 mEq/L 134-147 N POTASSIUM (test code = K) 3.8 mEq/L 3.4-5.0 N SP ECIMEN 1+ HEMOLYZED.Results known to be adversely affected by hemolysis are: Potassium Magnesium LDH Phosphorus CHLORIDE (test code = CL) 112 mEq/L 100-108 H CARBON DIOXIDE (test code = CO2) 22 mEq/L 21-33 N ANION GAP (test code = GAP) 13 0-20 N GLUCOSE (test code = GLU) 89 mg/dL 70-110 N BLOOD UREA NITROGEN (test code = BUN) 9 mg/dL 7-18 GLOMERULAR FILTRATION RATE (test code = GFR) 128.0 90-95 H Units of measure = ml/min/1.73 m2 CREATININE (test code = CREAT) 0.6 mg/dL 0.6-1.3 N CALCIUM (test code = CA) 7.3 mg/dL 8.0-10.5 L Novel Coronavirus 2019 [id number] 04:56:00* Test Item Value Reference Range Interpretation Comments Novel Coronavirus 2019 Inhouse (test code = COVNONPUI) Negative Negative [id number] 23:15:00* Test Item Value Reference Range Interpretation Comments TROPONIN-I (test code = TROPI) < 0.006 ng/mL 0.000-0.045 N Negative: <= 0.045 Positive: >= 0.046 Correlation with serial results, other cardiac markers andclinical findings is necessary to determine the clinicalsignificance of this result. Results using different methodologies should not be comparedto one another as quantitative results may vary by method. [id number] 19:00:00* Test Item Value Reference Range Interpretation Comments TROPONIN-I (test code = TROPI) < 0.006 ng/mL 0.000-0.045 N Negative: <= 0.045 Positive: >= 0.046 Correlation with serial results, other cardiac markers andclinical findings is necessary to determine the clinicalsignificance of this result. Results using different methodologies should not be comparedto one another as quantitative results may vary by method. COMPREHENSIVE METABOLIC [id number] 15:17:00* Test Item Value Reference Range Interpretation Comments SODIUM (test code = NA) 142 mEq/L 134-147 N POTASSIUM (test code = K) 2.8 mEq/L 3.4-5.0 LL CHLORIDE (test code = CL) 106 mEq/L 100-108 N CARBON DIOXIDE (test code = CO2) 26 mEq/L 21-33 N ANION GAP (test code = GAP) 13 0-20 N GLUCOSE (test code = GLU) 116 mg/dL 70-110 H BLOOD UREA NITROGEN (test code = BUN) 17 mg/dL 7-18 N GLOMERULAR FILTRATION RATE (test code = GFR) 80.2 90-95 L Units of measure = ml/min/1.73 m2 CREATININE (test code = CREAT) 0.9 mg/dL 0.6-1.3 N TOTAL PROTEIN (test code = PROT) 7.9 g/dL 6.4-8.2 N ALBUMIN (test code = ALB) 3.80 g/dL 3.4-5.0 N CALCIUM (test code = CA) 8.7 mg/dL 8.0-10.5 N BILIRUBIN TOTAL (test code = BILT) 0.40 mg/dL 0.0-1.0 N SGOT/AST (test code = AST) 14 IUnit/L 15-37 L SGPT/ALT (test code = ALT) < 7 IUnit/L 30-65 L ALKALINE PHOSPHATASE TOTAL (test code = ALKP) 59 IUnit/L 20-125 N HCG SERUM [id number] 15:17:00* Test Item Value Reference Range Interpretation Comments HCG SERUM QUAL (test code = HCGQL) SERUM NEGATIVE NEGATIVE COMPREHENSIVE METABOLIC [id number] 15:11:00* Test Item Value Reference Range Interpretation Comments SODIUM (test code = NA) 141 mEq/L 134-147 N POTASSIUM (test code = K) 3.3 mEq/L 3.4-5.0 L CHLORIDE (test code = CL) 106 mEq/L 100-108 N CARBON DIOXIDE (test code = CO2) 26 mEq/L 21-33 N ANION GAP (test code = GAP) 12 0-20 N GLUCOSE (test code = GLU) 84 mg/dL 70-110 N BLOOD UREA NITROGEN (test code = BUN) 15 mg/dL 7-18 N GLOMERULAR FILTRATION RATE (test code = GFR) 91.9 90-95 N Units of measure = ml/min/1.73 m2 CREATININE (test code = CREAT) 0.8 mg/dL 0.6-1.3 N TOTAL PROTEIN (test code = PROT) 8.1 g/dL 6.4-8.2 N ALBUMIN (test code = ALB) 4.00 g/dL 3.4-5.0 N CALCIUM (test code = CA) 8.6 mg/dL 8.0-10.5 N BILIRUBIN TOTAL (test code = BILT) 0.40 mg/dL 0.0-1.0 N SGOT/AST (test code = AST) 17 IUnit/L 15-37 N SGPT/ALT (test code = ALT) < 7 IUnit/L 30-65 L ALKALINE PHOSPHATASE TOTAL (test code = ALKP) 60 IUnit/L 20-125 N [id number] 15:11:00* Test Item Value Reference Range Interpretation Comments TROPONIN-I (test code = TROPI) < 0.006 ng/mL 0.000-0.045 N Negative: <= 0.045 Positive: >= 0.046 Correlation with serial results, other cardiac markers andclinical findings is necessary to determine the clinicalsignificance of this result. Results using different methodologies should not be comparedto one another as quantitative results may vary by method. PROTHROMBIN [id number] 15:05:00* Test Item Value Reference Range Interpretation Comments PROTHROMBIN TIME PATIENT (test code = PTP) 12.4 SECONDS 9.3-12.9 N INTERNATIONAL NORMAL RATIO (test code = INR) 1.1 0.8-1.2 N TARGET INR BY INDICATION Indication INR1. Prophylaxis of venous thrombosis 2.0 - 3.0 (orthopedic surgery), Prophylaxis of venous thrombosis (other than high-risk surgery), Treatment of Deep Vein Thrombosis/Pulmonary Embolism, Prevention of systemic embolism - Tissue heart valves, Acute Myocardial Infarction (to prevent systemic embolism), Valvular heart disease, Atrial Fibrillation, Bileaflet mechanical valve in aortic position.2. Mechanical prosthetic valves (high risk), 2.5 - 3.5 Presence of Lupus Anticoagulant or Antiphospholipid Antibodies, Prevention of systemic embolism - Acute Myocardial Infarction (to prevent recurrent infarct). THROMBOPLASTIN TIME [id number] 15:05:00* Test Item Value Reference Range Interpretation Comments THROMBOPLASTIN TIME PARTIAL (test code = PTT) 27.5 Seconds 25.0-39. 5 N Therapeutic Range: 50.4 - 88.3 Seconds Effective 10/08/2018 - XR CHEST 2 [id number] 12:37:00 FAX: Fina Raymundo DO [phone] [place]: St: PRE FAX: Vahid Kwon DPM [phone] Name: EVA LANDON [facility] [place] : 1970 Age/S: 49/F [address] [place] [address] Unit #: [id number] Loc: [place] [address] Phys: Vahid Santoro DPM Acct: [id number] Dis Date: Status: PRE SDC PHONE #: [phone] Exam Date: 02/16/2020 1234 FAX #: [phone] Reason: ANKLE LIGAMENT REPAIR EXAMS: CPT CODE: [id number] XR CHEST 2 V 79672 CHEST 1 VIEW: 02/16/2020 COMPARISON: NONE CLINICAL HISTORY: ANKLE LIGAMENT REPAIR FINDINGS: Median sternotomy wires are present. Heart is normal in size. No infiltrates or pulmonary edema is present. There is no pneumothorax. Prominent left nipple shadow identified. IMPRESSION: No acute pulmonary disease. at 1237 Reported and signed by: Hira Epstein M.D. CC: Fina Santoro DPM Technologist: RT Gila(Delroy) Trnscrd Date/Time/By: 02/16/2020 (6381) : By: [email or web address] Orig Print D/T: S: 02/16/2020 (4354) PAGE 1 Signed Report COMPREHENSIVE METABOLIC PANEL 2020-02-16 12:34:00* Test Item Value Reference Range Interpretation Comments SODIUM (test code = NA) mEq/L 134-147 POTASSIUM (test code = K) mEq/L 3.4-5.0 CHLORIDE (test code = CL) mEq/L 100-108 CARBON DIOXIDE (test code = CO2) mEq/L 21-33 ANION GAP (test code = GAP) 0-20 GLUCOSE (test code = GLU) mg/dL 70-110 BLOOD UREA NITROGEN (test code = BUN) mg/dL 7-18 GLOMERULAR FILTRATION RATE (test code = GFR) 90-95 CREATININE (test code = CREAT) mg/dL 0.6-1.3 TOTAL PROTEIN (test code = PROT) g/dL 6.4-8.2 ALBUMIN (test code = ALB) g/dL 3.4-5.0 CALCIUM (test code = CA) mg/dL 8.0-10.5 BILIRUBIN TOTAL (test code = BILT) mg/dL 0.0-1.0 SGOT/AST (test code = AST) IUnit/L 15-37 SGPT/ALT (test code = ALT) IUnit/L 30-65 ALKALINE PHOSPHATASE TOTAL (test code = ALKP) IUnit/L 20-125 HCG SERUM [id number] 12:34:00* Test Item Value Reference Range Interpretation Comments HCG SERUM QUAL (test code = HCGQL) SERUM NEGATIVE NEGATIVE CBC W/AUTO [id number] 12:24:00* Test Item Value Reference Range Interpretation Comments WHITE BLOOD CELL (test code = WBC) 6.06 x10 3/uL 4.5-11.0 N RED BLOOD CELL (test code = RBC) 3.66 x10 6/uL 3.54-5.02 N HEMOGLOBIN (test code = HGB) 13.4 g/dL 11.0-15.0 N HEMATOCRIT (test code = HCT) 39.2 % 33.0-45.0 N MEAN CELL VOLUME (test code = MCV) 107.1 fL 81.0-99.0 H MEAN CELL HGB (test code = MCH) 36.6 pg 27.0-33.0 H MEAN CELL HGB CONCETRATION (test code = MCHC) 34.2 g/dL 33.0-37. 0 N RED CELL DISTRIBUTION WIDTH CV (test code = RDW) 14.3 % 11.5- 14.5 N RED CELL DISTRIBUTION WIDTH SD (test code = RDW-SD) 56.7 fL 37 .0-54.0 H PLATELET COUNT (test code = PLT) 317 x10 3/uL 150-400 N MEAN PLATELET VOLUME (test code = MPV) 10.1 fL 7.0-9.0 H NEUTROPHIL % (test code = NT%) 43.6 % 56.0-77.0 L IMMATURE GRANULOCYTE % (test code = IG%) 0.2 % 0.0-2.0 N LYMPHOCYTE % (test code = LY%) 46.7 % 14.0-32.0 H MONOCYTE % (test code = MO%) 7.8 % 4.8-9.0 N EOSINOPHIL % (test code = EO%) 1.5 % 0.3-3.7 N BASOPHIL % (test code = BA%) 0.2 % 0.0-2.0 N NUCLEATED RBC % (test code = NRBC%) 0.0 % 0-0 N NEUTROPHIL # (test code = NT#) 2.65 x10 3/uL 2.0-7.6 N IMMATURE GRANULOCYTE # (test code = IG#) 0.01 x10 3/uL 0.00-0.03 N LYMPHOCYTE # (test code = LY#) 2.83 x10 3/uL 1.0-3.8 N MONOCYTE # (test code = MO#) 0.47 x10 3/uL 0.1-0.8 N EOSINOPHIL # (test code = EO#) 0.09 x10 3/uL 0.0-0.2 N BASOPHIL # (test code = BA#) 0.01 x10 3/uL 0.0-0.2 N NUCLEATED RBC # (test code = NRBC#) 0.00 x10 3/uL 0.0-0.1 N MANUAL DIFF REQUIRED (test code = MDIFF) NO Urine opiates screening [id number] 01:10:00* Test Item Value Reference Range Interpretation Comments Urine Opiates Screen (test code = 76931-0) POSITIVE NEGATIVE ALL TESTS PERFORMED MANUALLY ON [facility] TOX/SEE TEST This test provides only a sc reen. Positive results should be repeated by a confirmatory test.[facility] CenterBarbiturates screen, [id number] 01:10:00* Test Item Value Reference Range Interpretation Comments Urine Barbiturates Screen (test code = 351784427) NEGATIVE NEGA TIVE [facility] CenterUrine phencyclidine detection by screening [id number] 01:10:00* Test Item Value Reference Range Interpretation Comments Urine Phencyclidine Screen (test code = 12422-3) NEGATIVE NEGAT BHAVESH [facility] CenterUrine amphetamines detection by screen method > 1000 [id number]/[id number] 01:10:00* Test Item Value Reference Range Interpretation Comments Urine Amphetamines Screen (test code = 85261-4) NEGATIVE NEGATI VE [facility] CenterFluoroscopic procedure less than one hour [id number] 01:10:00* Test Item Value Reference Range Interpretation Comments Urine Methamphetamines Screen (test code = Urine Metha mphetamines Screen) NEGATIVE NEGATIVE [facility] CenterUrine benzodiazepines detection by screening [id number] 01:10:00* Test Item Value Reference Range Interpretation Comments Urine Benzodiazepines Screen (test code = 17912-4) POSITIVE NEG ATIVE This test provides only a screen. Positive results should be repeated by a confi rmatory test.[facility] CenterUrine cocaine measurement (mass/volume)2019-12-11 01:10:00* Test Item Value Reference Range Interpretation Comments Urine Cocaine Screen (test code = 3398-5) NEGATIVE NEGATIVE [facility] CenterUrine cannabinoids detection by screening [id number] 01:10:00* Test Item Value Reference Range Interpretation Comments Urine Cannabinoids Screen (test code = 76964-6) POSITIVE NEGATI VE THESE RESULTS ARE FOR MEDICAL TREATMENT ONLYTHIS REPORT CONTAINS UNCONFIR MED SCREENING RESULTS*POSITIVE RESULTS WILL BE CONFIRMED BY REFERENCE LAB UPON R EQUEST CUT-OFFDRUG CLASS CONCENTRATION ng/mLAmphetamines 1000Methamphetamines 1000Cocaine 300Opiate 300Phencyc lidine 25Cannabinoid 50Barbiturates 300Benzodiazepine 300Methadone 300 This test p rovides only a screen. Positive results should be repeated by a confirmatory madison t.[facility] CenterUrine methadone [id number] 01:10:00* Test Item Value Reference Range Interpretation Comments Urine Methadone Screen (test code = 39057-5) NEGATIVE NEGATIVE THESE RESULTS ARE FOR MEDICAL TREATMENT ONLYTHIS REPORT CONTAINS UNCONFIR MED SCREENING RESULTS*POSITIVE RESULTS WILL BE CONFIRMED BY REFERENCE LAB UPON R EQUEST CUT-OFFDRUG CLASS CONCENTRATION ng/mLAmphetamines 1000Methamphetamines 1000Cocaine Metabolite 300Opiate 300Phencyc lidine 25Cannabinoid 50Barbiturates 300Benzodiazepine 300Methadone 300[facility] (PORTABLE)2019-12-11 01:05:00 [facility] [address] [place] [address] Patient Name: EVA LANDON MR #: [id number] : 1970 Age/Sex: 49/F Req #: [id number] Adm Physician: Ordered by: KHRIS RODRIGUEZ DO Report #: [id number] Location: ER Room/Bed: Procedure: [id number] DX/CHEST S KAI (PORTABLE) Exam Date: 12/10/19 Exam Time: 2355 REPORT STATUS: Signed EXAMINATI ON: CHEST SINGLE (PORTABLE) INDICATION: Chest pain COMPARISO N: None FINDINGS: TUBES and LINES: None. LUNGS: Shanice l lung volumes. Lungs are clear. Prominent central pulmonary vasculature. PLEURA: No pleural effusion or pneumothorax. HEART AND MEDIASTINUM: Ca rdiac size is mildly enlarged. BONES AND SOFT TISSUES: No acute osseou s lesion. Soft tissues are unremarkable. Sternotomy wires. Degenerative becerra es UPPER ABDOMEN: No free air under the diaphragm. . IMPRESSION: Mild cardiomegaly and pulmonary vascular congestion. Signed by: Amos Terry DO on 12/11/2019 1:14 AM Dictated By: AMOS TERRY DO [facility] Signed By: AMOS TERRY DO on 12/11/19113 Transcribed By: JOSÉ MIGUEL PLASENCIA on 12/11/19113 COPY TO: KHRIS RODRIGUEZ DO Blood leukocytes automated count (number/volume)2019-12-10 22:07:00* Test Item Value Reference Range Interpretation Comments White Blood Count (test code = 6690-2) 8.56 4.8-10.8 [facility] CenterBlood erythrocytes automated count (number/volume)2019-12-10 22:07:00* Test Item Value Reference Range Interpretation Comments Red Blood Count (test code = 789-8) 3.63 3.6-5.1 [facility] CenterBlood hemoglobin measurement (moles/volume)2019-12-10 22:07:00* Test Item Value Reference Range Interpretation Comments Hemoglobin (test code = 05742-5) 12.5 12.0-16.0 [facility] CenterAutomated blood hematocrit (volume fraction)2019-12-10 22:07:00* Test Item Value Reference Range Interpretation Comments Hematocrit (test code = 4544-3) 35.7 34.2-44.1 [facility] CenterAutomated erythrocyte mean corpuscular eqeuko7089-17-12 22:07:00* Test Item Value Reference Range Interpretation Comments Mean Corpuscular Volume (test code = 787-2) 98.3 81-99 [facility] CenterAutomated erythrocyte mean corpuscular hemoglobin (mass per erythrocyte)2019-12-10 22:07:00* Test Item Value Reference Range Interpretation Comments Mean Corpuscular Hemoglobin (test code = 785-6) 34.4 28-32 [facility] CenterAutomated erythrocyte mean corpuscular hemoglobin concentration measurement (mass/volume)2019-12-10 22:07:00* Test Item Value Reference Range Interpretation Comments Mean Corpuscular Hemoglobin Concent (test code = 786-4) 35.0 31-35 [facility] CenterRDW DpeHg-Jhw2782-28-17 22:07:00* Test Item Value Reference Range Interpretation Comments Red Cell Distribution Width (test code = 73243-1) 15.7 11.7 -14.4 [facility] CenterAutomated blood platelet count (count/volume)2019-12-10 22:07:00* Test Item Value Reference Range Interpretation Comments Platelet Count (test code = 777-3) 252 140-360 [facility] CenterAutformerly [facility], [facility] morgantoned blood segmented neutrophil count as percentage of total ggfbrtjszc4982-61-43 22:07:00* Test Item Value Reference Range Interpretation Comments Neutrophils (%) (Auto) (test code = 01513-7) 46.1 38.7-80.0 [facility] CenterAutomated blood lymphocyte count as percentage ot total usquglawul0452-97-86 22:07:00* Test Item Value Reference Range Interpretation Comments Lymphocytes (%) (Auto) (test code = 736-9) 44.9 18.0-39.1 [facility] CenterAutomated blood monocyte count as percentage of total odytkiqmjk6406-33-01 22:07:00* Test Item Value Reference Range Interpretation Comments Monocytes (%) (Auto) (test code = 5905-5) 6.3 4.4-11.3 [facility] CenterAutomated blood eosinophil count as percentage of total nqjlckjroo3621-71-02 22:07:00* Test Item Value Reference Range Interpretation Comments Eosinophils (%) (Auto) (test code = 713-8) 2.1 0.0-6.0 [facility] CenterAutomated blood basophil count as percentage of total rdfnjoyprg0060-88-89 22:07:00* Test Item Value Reference Range Interpretation Comments Basophils (%) (Auto) (test code = 706-2) 0.4 0.0-1.0 [facility] CenterFluoroscopic procedure less than one hour nhivgpjy0630-06-02 22:07:00* Test Item Value Reference Range Interpretation Comments IM GRANULOCYTES % (test code = IM GRANULOCYTES %) 0.2 0.0- 1.0 [facility] CenterAutomated blood neutrophil count 2019-12-10 22:07:00* Test Item Value Reference Range Interpretation Comments Neutrophils # (Auto) (test code = 751-8) 4.0 2.1-6.9 [facility] CenterBlood lymphocytes count (number/volume) 2019-12-10 22:07:00* Test Item Value Reference Range Interpretation Comments Lymphocytes # (Auto) (test code = 87750-6) 3.8 1.0-3.2 [facility] CenterBlood monocytes automated count (number/volume)2019-12-10 22:07:00* Test Item Value Reference Range Interpretation Comments Monocytes # (Auto) (test code = 742-7) 0.5 0.2-0.8 [facility] CenterAutomated blood eosinophil count 2019-12-10 22:07:00* Test Item Value Reference Range Interpretation Comments Eosinophils # (Auto) (test code = 711-2) 0.2 0.0-0.4 [facility] CenterAutomated blood basophil count (count/volume)2019-12-10 22:07:00* Test Item Value Reference Range Interpretation Comments Basophils # (Auto) (test code = 704-7) 0.0 0.0-0.1 [facility] CenterFluoroscopic procedure less than one hour yjipsznq7371-86-83 22:07:00* Test Item Value Reference Range Interpretation Comments Absolute Immature Granulocyte (auto (madison t code = Absolute Immature Granulocyte (auto) 0.02 0-0.1 [facility]ieerum or plasma sodium measurement (moles/volume)2019-12-10 22:07:00* Test Item Value Reference Range Interpretation Comments Sodium Level (test code = 2951-2) 144 136-145 [facility]achieerum or plasma potassium measurement (moles/volume)2019-12-10 22:07:00* Test Item Value Reference Range Interpretation Comments Potassium Level (test code = 2823-3) 3.5 3.5-5.1 [facility]achieerum or plasma chloride measurement (moles/volume)2019-12-10 22:07:00* Test Item Value Reference Range Interpretation Comments Chloride Level (test code = 2075-0) 109 98-107 [facility] Waxahachieerum or plasma carbon dioxide, total measurement (moles/volume)2019-12-10 22:07:00* Test Item Value Reference Range Interpretation Comments Carbon Dioxide Level (test code = 2028-9) 20 22-29 [facility] W[facility]achieerum or plasma anion cal4845-69-36 22:07:00* Test Item Value Reference Range Interpretation Comments Anion Gap (test code = 43321-1) 18.5 8-16 [facility]achieerum or plasma urea nitrogen measurement (mass/volume)2019-12-10 22:07:00* Test Item Value Reference Range Interpretation Comments Blood Urea Nitrogen (test code = 3094-0) 7 7-26 [facility]achieerum or plasma creatinine measurement (mass/volume)2019-12-10 22:07:00* Test Item Value Reference Range Interpretation Comments Creatinine (test code = 2160-0) 0.82 0.57-1.11 [facility]achieerum or plasma urea nitrogen/creatinine mass xyhas3034-26-45 22:07:00* Test Item Value Reference Range Interpretation Comments BUN/Creatinine Ratio (test code = 3097-3) 9 6-[address] [facility] CenterEstimated glomerular filtration rate (GFR) qmkifzesbjhnu0808-63-96 22:07:00* Test Item Value Reference Range Interpretation Comments Estimat Glomerular Filtration Rate (test code = 852489965) > 60 >60 Ranges were taken from the National Kidney Disease Education Program and the [facility] Kidney Foundation literature.Reference ranges:60 or greater: Lfyrsc37-74 ( for 3 consecutive months): Chronic kidney disease 15 or less: Kidney failureLake Granbury Medical CenterGlucose khyyibxtyoq7134-38-42 22:07:00* Test Item Value Reference Range Interpretation Comments Glucose Level (test code = TZB3024) 134 74-118 [facility]achieerum or plasma calcium measurement (mass/volume)2019-12-10 22:07:00* Test Item Value Reference Range Interpretation Comments Calcium Level (test code = 31764-4) 8.6 8.4-10.2 [facility]achieerum or plasma total bilirubin measurement (mass/volume)2019-12-10 22:07:00* Test Item Value Reference Range Interpretation Comments Total Bilirubin (test code = 1975-2) 0.3 0.2-1.2 [facility] CenterFluoroscopic procedure less than one hour pwhjfzhv3661-04-49 22:07:00* Test Item Value Reference Range Interpretation Comments Aspartate Amino Transf (AST/SGOT) (test code = Aspartate Amino Transf (AST/SGOT)) 22 5-34 [facility]achieerum or plasma alanine aminotransferase measurement (enzymatic activity/volume)2019-12-10 22:07:00* Test Item Value Reference Range Interpretation Comments Alanine Aminotransferase (ALT/SGPT) (test code = 1742-6) 7 0-55 [facility]achieerum or plasma protein measurement (mass/volume)2019-12-10 22:07:00* Test Item Value Reference Range Interpretation Comments Total Protein (test code = 2885-2) 8.5 6.5-8.1 [facility]ieerum or plasma albumin measurement (mass/volume)2019-12-10 22:07:00* Test Item Value Reference Range Interpretation Comments Albumin (test code = 1751-7) 3.6 3.5-5.0 [facility] CenterPlasma globulin measurement (mass/volume) 2019-12-10 22:07:00* Test Item Value Reference Range Interpretation Comments Globulin (test code = 33484-8) 4.9 2.3-3.5 [facility]ieerum or plasma albumin/globulin mass jjcbt6608-12-11 22:07:00* Test Item Value Reference Range Interpretation Comments Albumin/Globulin Ratio (test code = 1759-0) 0.7 0.8-2.0 [facility]ieerum or plasma alkaline phosphatase measurement (enzymatic activity/volume)2019-12-10 22:07:00* Test Item Value Reference Range Interpretation Comments Alkaline Phosphatase (test code = 6768-6) 55 40-150 [facility] CenterBNP Wve-pTut0667-05-17 22:07:00* Test Item Value Reference Range Interpretation Comments B-Type Natriuretic Peptide (test code = 88703-8) < 10.0 0-100 [facility]ieerum or plasma creatine kinase measurement (enzymatic activity/volume)2019-12-10 22:07:00* Test Item Value Reference Range Interpretation Comments Creatine Kinase (test code = 2157-6) 71 29-168 [facility]achieerum or plasma creatine kinase MB measurement (mass/volume)2019-12-10 22:07:00* Test Item Value Reference Range Interpretation Comments Creatine Kinase MB (test code = 40478-1) 0.40 0-5.0 [facility] CenterTroponin I measurement by highly sensitive enzyme zduerumistu0892-48-88 22:07:00* Test Item Value Reference Range Interpretation Comments Troponin I (test code = 82798-7) 0.007 0-0.300 [facility] CenterTransthoracic Echocardiogram Complete, (w Contrast, Strain and 3D if needed)2019-10-10 12:37:09* Test Item Value Reference Range Interpretation Comments Velocity Ratio (V1/V2) (test code = 4689) 0.78 m/s IVS,d (test code = 4671423549) 0.84 cm Ao root annulus (test code = 1138013471) 2.77 cm EF (test code = 5890531747) 59.38 % LVPWD,d (test code = 4518603910) 1.11 cm AoV Mean PG (test code = 1318199662) 2.20 mmHg AV LVOT peak gradient (test code = 6027517010) 2.58 mmHg MV valve area p 1/2 method (test code = 8284131414) 6.85 cm2 E/A ratio (test code = 3159670711) 2.15 E wave decelartion time (test code = 6053666964) 129.16 msec LVOT Diam,S (test code = 3349181863) 1.86 cm LVOT area (test code = 3648948127) 2.72 cm2 LVOT Vmax (test code = 8769508098) 0.80 m/s LVOT VTI (test code = 8814461680) 0.18 m AoV Peak PG (test code = 5612951626) 4.20 mmHg MV Peak E Srinivas (test code = 2974845529) 0.73 m/s MV stenosis pressure 1/2 time (test code = 9681901426) 32.14 ms MV Peak A Srinivas (test code = 2222045974) 0.34 m/s LV Vol,s A2C (test code = 5383250815) 29.12 mL LV Vol,d A2C (test code = 6157422208) 84.08 mL AoV Area, Vmax (test code = 0889523661) 2.12 cm2 AoV Area, VTI (test code = 0634381565) 2.51 cm2 AoV Vmax (test code = 4861252244) 1.03 m/s LV,d (test code = 7551271564) 3.51 cm LV,s (test code = 3631395941) 2.43 cm LV Vol,d A4C (test code = 4512913469) 70.25 ml LV Vol,s A4C (test code = 3611655982) 30.39 ml RVSP (TR) (test code = 3456976704) 27.58 mmHg TR Vpeak (test code = 5383898165) 2.41 mm/s MV E A ratio (test code = 1811552996) 2.16 RA pressure (test code = 4140572348) 5.00 mmHg TR pk grad (test code = 5266207909) 23 mmHg LA Vol 4C (test code = 8792678710) 45.00 ml RVSP (test code = 2112731664) 27.58 mmHg LV SYS VOL (test code = 1894746871) 20.80 ml LV MILIAN VOL (test code = 3866319713) 51.20 ml LA diam s (test code = 7718768963) 2.90 cm LA Vol MOD A4C (test code = 2465905353) 45.07 ml LV SV Teich 2D (test code = 0397888697) 30.39 ml LVOT SI (test code = 3987910311) 26.40 ml/m2 AoV Cusp sep (test code = 4755978212) 1.68 Aortic Root (test code = 5823796020) 2.80 cm AoV Vmn (test code = 8267134601) 0.69 IVS s 2D (test code = 1118967979) 1.24 LA Ao Ratio Mmode (test code = 9383373243) 1.04 D E excurs (test code = 1065257480) 1.20 E f slope (test code = 4377635957) 0.06 E prime lat (test code = 2665040227) 0.10 E jose sept (test code = 6311699249) 0.07 PV acc T slope (test code = 5052628524) 6.80 PV AT (test code = 7509113239) 62.28 msec FLORES BP EF (test code = 5902947816) 59.00 % LA VOL 2C (test code = 8142183949) 41.00 ml AoV VTI (test code = 7523305442) 0.19 m LV EF,A2C (test code = 1610744772) 65.37 % LV EF,A4C (test code = 4723470925) 56.73 % LV EF,BP (test code = 6890964682) 59.52 % Kristian Mears,d A2C (test code = 9193153247) 7.81 cm Kristian Mears,d A4C (test code = 9706996491) 7.69 cm Kristian Mears,s A2C (test code = 9681330206) 6.68 cm Kristian Mears,s A4C (test code = 3172476513) 5.89 cm LV SV,A2C (test code = 7730959836) 54.96 % LV SV,A4C (test code = 8489521517) 39.85 % LV Vol,d BP (test code = 9982933508) 77.34 ml LV Vol,s BP (test code = 5162029745) 31.31 nl LVOT Vmn (test code = 0298413020) 0.57 Pt Size (test code = 5869479308) 154.94 Pt Wt (test code = 1015139853) 86.18 LVOT mean grad (test code = 4601837357) 1.45 mmHg LVPW s PLAX (test code = 3624008426) 1.42 cm MV Decel slope (test code = 9048790055) 5.68 m/s2 GELY (test code = GELY) Left ventricular systolic function is normal. Left Ventricular ejection fraction is 55 - 60%. There is borderline left ventricular concentric hypertrophy. Unable to assess diastolic filling. The doppler, spectral and color flow examination are unremarkable and show no significant flow abnormalities of the aortic, mitral, tricuspid or pulmonic valves Laci WinstonistCOVID-19 qualitative [id number] 07:44:49* Test Item Value Reference Range Interpretation Comments Interpretation (test code = 5301066) Negative results do not preclude 2019-nCoV infection and should not be used as the sole basis for treatment or other patient management decisions. Negative results must be combined with clinical observations, patient history, and epidemiological information. COVID-19 qualitative PCR result (test code = 23031-0) Not-Detect ed Not-Detected COVID-19 qualitative PCR (test code = 7070) See link below for P DF Lab Report [facility] [id number] 07:21:21* Test Item Value Reference Range Interpretation Comments Ventricular rate (test code = 253) 69 Atrial rate (test code = 255) 69 MI interval (test code = 266) 218 QRSD interval (test code = 260) 76 QT interval (test code = 264) 434 QTC interval (test code = 265) 465 P axis 1 (test code = 267) 70 QRS axis 1 (test code = 268) 9 T wave axis (test code = 270) 43 EKG impression (test code = 273) Sinus rhythm with 1st degree AV block-Otherwise normal ECG-In automated comparison with ECG of 09-OCT-2019 13:43,-No significant change was found- Laci MethodistComprehensive metabolic [id number] 06:19:24* Test Item Value Reference Range Interpretation Comments Sodium (test code = 2951-2) 143 135- 148 mEq/L Potassium (test code = 2823-3) 3.4 3.5- 5.0 mEq/L L Chloride (test code = 5-0) 109 98- 112 mEq/L CO2 (test code = 2027-9) 26 24- 31 mEq/L Anion gap (test code = 83070-1) 8@ANIO 7- 15 mEq/L BUN (test code = 3094-0) 8 mg/dL 6-20 Creatinine (test code = 2160-0) 0.70 mg/dL 0.5-0.9 Glucose (test code = 2345-7) 95 mg/dL 65-99 Calcium (test code = 42656-5) 9.0 mg/dL 8.3-10.2 Protein (test code = 2885-2) 7.4 g/dL 6.3-8.3 - 4.6- 7.0 g/dL1 week 4.4-7.6 g/dL7 months-1year 5.1-7.3 g/dL1-2 years 5.6-7.5 g/dL>3 years 6.0-8.0 g/hG53-743 6.3-8.3 g/dL Albumin (test code = 1751-7) 3.6 g/dL 3.5-5 A/G ratio (test code = 1759-0) 0.9 0.7-3.8 Alkaline phosphatase (test code = 6768-6) 59 U/L 35-104 AST (test code = 1920-8) 14 U/L 10-35 ALT (test code = 1742-6) 7 U/L 5-50 Total bilirubin (test code = 1974-2) 0.4 mg/dL 0-1.2 Lab Interpretation (test code = 03737-2) Abnormal Laci MethodistEstimated [id number] 06:19:24* Test Item Value Reference Range Interpretation Comments Estimated GFR (test code = 5488) >=90 mL/min/1.73 m2 Catergory Units InterpretationG1 >=90 Normal or highG2 60-89 Mildly gxoobixonN0i 45-59 Mildly to moderately lhhbbwfdpK3e 30-44 Moderately to severely decreasedG4 15-29 Severely decreasedG5 <15 Kidney failureThe eGFR was calculated using the Chronic Kidney Disease Epidemiology Collaboration (CKD-EPI) equation. Interpretation is based on recommendations of the National Kidney Foundation-Kidney Disease Outcomes Quality Initiative (NKF-KDOQI) published in 2014. [facility]ero MethodistCBC with platelet and qftdkvodvbwp4166-73-94 06:03:47* Test Item Value Reference Range Interpretation Comments WBC (test code = 94544-7) 5.67 4.50- 11.00 k/uL RBC (test code = 50950-6) 3.48 m/uL 4.2-5.5 L HGB (test code = 718-7) 11.4 g/dL 12-16 L HCT (test code = 4544-3) 34.3 % 37-47 L MCV (test code = 787-2) 98.6 fL 82-100 MCH (test code = 785-6) 32.8 pg 27-34 MCHC (test code = 786-4) 33.2 g/dL 31-37 RDW - SD (test code = 49392-7) 57.1 fL 37-55 H MPV (test code = 53544-5) 9.9 fL 8.8-13.2 Platelet count (test code = 48033-0) 278 150- 400 k/uL Nucleated RBC (test code = 79377-8) 0.00 /100 WBC Neutrophils (test code = 00427-4) 30.5 % 39-69 L Lymphocytes (test code = 27104-4) 59.6 % 25-45 H Monocytes (test code = 30940-1) 6.5 % 0-10 Eosinophils (test code = 96894-1) 3.0 % 0-5 Basophils (test code = 48620-5) 0.2 % 0-1 Lab Interpretation (test code = 72045-5) Abnormal Aguero WgqcxegdbJurkxwyq8829-93-01 21:44:11* Test Item Value Reference Range Interpretation Comments Troponin (test code = 53087-7) 0.248 ng/mL 0-0.04 H In patients suspected of having a myocardial infarction, along with all other appropriate clinical measures and actions including ECG and other diagnostics as appropriate, measure Ultra TnI at 0 hrs and at 3 hrs.Myocardial infarction VERY LIKELYThe 0 hr TnI level is > 0.10 ng/mL Aroldo cardial infarction LIKELYThe 0 hr TnI level is > 0.04 ng/mL and 3 hr level is increased or decreased by at least 0.020 ng/mL Myocardi al infarction VERY UNLIKELYBoth the 0 hr and 3 hr TnI levels <= 0.04 ng/mL(within normal limits) OR 0 hr is > 0.04 ng/mL and 3 hr is increased OR decreased by less than 0.020 ng/mL Lab Interpretation (test code = 59115-0) Abnormal [facility] Pe [id number] 16:08:50Hm Interface, Radiology Results 10/09/2019 4:11 PM CDTCT ANGIOGRAM PE CHESTINDICATION: PE suspected high pretest prob, chest pain prior hx PETECHNIQUE: Multidetector CT of the chest with attention to the pulmonary arteries was performed following the intravenous administration of iodinated contrast. Standard multiplanar reformatted images were performed. In addition, postprocessed 3D MIP images were also performed for CT angiography. CT imaging was performed with iterative reconstruction technique and/or automated exposure control to reduce radiation dose.COMPARISON: 09/26/2017.FINDINGS:PULMONARY ARTERIES: The pulmonary arteries are diagnostically opacified without findings for acute pulmonary embolus.HEART AND GREAT ARTERIES: The heart is mildly large and there is no pe ricardial effusion. 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 The thorac ic aorta is normal in caliber.MEDIASTINUM AND JAZ: No mass or hematoma is ident ified. No enlarged lymph nodes are seen. Trachea and central airways are paten t.LUNGS: Aside from scattered areas of mild linear atelectasis, the lungs are c lear.PLEURA: No pneumothorax or effusion.BONES: No acute osseous abnormality. T here are median sternotomy wires.VISUALIZED ABDOMEN: No acute findings.IMPRESSIO N:1. No pulmonary embolism.2. No acute airspace disease. HMWB-[id number] MethodistB natriuretic cbnarzn8163-50-21 14:38:26* Test Item Value Reference Range Interpretation Comments BNP (test code = 60403-8) 38 pg/mL 0-100 [facility] ED Preliminary Interpretation - Not an Rgifg1647-00-31 14:16:48* Test Item Value Reference Range Interpretation Comments GELY (test code = GELY) Pritesh Araiza DO 10/09/2019 4:22 [facility] [place] [place] Preliminary Interpretation - Not an OrderPerformed by: Pritesh Araiza DOAuthorized by: Pritesh Araiza DO ECG reviewed by ED Physician in the absence of a sewing room supervisor: yes (1400) Interpretation: Interpretation: abnormal Rate: ECG rate: 79 ECG rate assessment: normal Rhythm: Rhythm: sinus rhythm and A-V block Ectopy: Ectopy: none QRS: QRS axis: Normal QRS intervals: NormalConduction: Conduction: abnormal Abnormal conduction: 1st degree ST segments: ST segments: NormalT waves: T waves: normal Lab Interpretation (test code = 67633-0) Abnormal [facility] [id number] 14:16:48Pritesh Araiza DO 10/09/2019 4:22 PMCritical CarePerformed by: Pritesh Araiza DOAuthorized by: Pritesh Araiza DO Critical care provider statement: Critical care time (minutes): 60 Critical care end time: 10/09/2019 4:21 PM Critical care time was exclusive of: Separately billable procedures and treating other patients Critical care was necessary to treat or prevent imminent or life- threatening deterioration of the following conditions: Cardiac failure Critical care was time spent personally by me on the following activities: Ordering and performing treatments and interventions, ordering and review of laboratory studies, ordering and review of radiographic studies, pulse oximetry, re-evaluation of patient's condition, review of old charts, development of t reatment plan with patient or surrogate, discussions with consultants, evaluatio n of patient's response to treatment, examination of patient and obtaining histo ry from patient or surrogate Brian 'yes' if you are taking over critical care fo r this patient from another provider.: no Laci MethodistXR Chest 1 Vw [id number] 14:14:05Hm Interface, Radiology Results Incoming - 10/09/2019 2:17 PM CDTEXAMINATION: XR CHEST 1 VW PORTABLECLINICAL HISTORY: chest pain COMPARISON: 10/12/2016IMPRESSION:Sternotomy. Cardiomediastinal silhouette is enlarged. Pulmonary vasculature within normal limits. Faint bibasilar opacities likely a combination of atelectasis from shallow inspiratory depth and possibly mild pulmonary edema. No pleural effusion.[facility]-[id number] Methodist LIPOPROTEIN [id number] 11:27:00* Test Item Value Reference Range Interpretation Comments LIPOPROTEIN LDL (test code = LDL) 139 mg/dL 0-100 H <100 [id number] NEAR OPTIMAL/ABOVE [id number] PQUKHJIKDJ759-755 HIGH>EW=797 VERY HIGH*Guidelines provided by the National Cholesterol EducationProgram Adult Treatment Panel III B-TYPE NATRIURETIC [id number] 11:08:00* Test Item Value Reference Range Interpretation Comments B-TYPE NATRIURETIC PEPTIDE (test code = BNP) 35.2 PG/ML 0-100 N B-TYPE NATRIURETIC [id number] 11:08:00* Test Item Value Reference Range Interpretation Comments B-TYPE NATRIURETIC PEPTIDE (test code = BNP) 35.2 PG/ML 0-100 N BASIC METABOLIC [id number] 11:07:00* Test Item Value Reference Range Interpretation Comments SODIUM (test code = NA) 142 mEq/L 134-147 N POTASSIUM (test code = K) 3.6 mEq/L 3.4-5.0 N CHLORIDE (test code = CL) 108 mEq/L 100-108 N CARBON DIOXIDE (test code = CO2) 28 mEq/L 21-33 N ANION GAP (test code = GAP) 10 0-20 N GLUCOSE (test code = GLU) 90 mg/dL 70-110 N BLOOD UREA NITROGEN (test code = BUN) 9 mg/dL 7-18 N GLOMERULAR FILTRATION RATE (test code = GFR) 107.6 95-105 H Units of measure = ml/min/1.73 m2 CREATININE (test code = CREAT) 0.7 mg/dL 0.6-1.3 N CALCIUM (test code = CA) 8.6 mg/dL 8.0-10.5 N [id number] 11:07:00* Test Item Value Reference Range Interpretation Comments LIPASE (test code = LIP) 48 IUnit/L 73-393 L [id number] 11:07:00* Test Item Value Reference Range Interpretation Comments MAGNESIUM (test code = MAG) 2.10 mg/dL 1.8-2.4 N TSH REFLEX TO [id number] 11:07:00* Test Item Value Reference Range Interpretation Comments TSH REFLEX TO FT4 (test code = TSHREFLEX) 1.09 IU/mL 0.42-5.47 N [id number] 11:07:00* Test Item Value Reference Range Interpretation Comments TROPONIN-I (test code = TROPI) 0.236 ng/mL 0.000-0.045 HH Negative: <= 0.045 Positive: >= 0.046 Correlation with serial results, other cardiac markers andclinical findings is necessary to determine the clinicalsignificance of this result. Results using different methodologies should not be comparedto one another as quantitative results may vary by method. PROTHROMBIN [id number] 10:59:00* Test Item Value Reference Range Interpretation Comments PROTHROMBIN TIME PATIENT (test code = PTP) 12.7 SECONDS 9.3-12.9 N INTERNATIONAL NORMAL RATIO (test code = INR) 1.2 0.8-1.2 N TARGET INR BY INDICATION Indication INR1. Prophylaxis of venous thrombosis 2.0 - 3.0 (orthopedic surgery), Prophylaxis of venous thrombosis (other than high-risk surgery), Treatment of Deep Vein Thrombosis/Pulmonary Embolism, Prevention of systemic embolism - Tissue heart valves, Acute Myocardial Infarction (to prevent systemic embolism), Valvular heart disease, Atrial Fibrillation, Bileaflet mechanical valve in aortic position.2. Mechanical prosthetic valves (high risk), 2.5 - 3.5 Presence of Lupus Anticoagulant or Antiphospholipid Antibodies, Prevention of systemic embolism - Acute Myocardial Infarction (to prevent recurrent infarct). THROMBOPLASTIN TIME [id number] 10:59:00* Test Item Value Reference Range Interpretation Comments THROMBOPLASTIN TIME PARTIAL (test code = PTT) 31.9 Seconds 25.0-39. 5 N Therapeutic Range: 50.4 - 88.3 Seconds Effective 10/08/2018 PROTHROMBIN [id number] 10:59:00* Test Item Value Reference Range Interpretation Comments PROTHROMBIN TIME PATIENT (test code = PTP) 12.7 SECONDS 9.3-12.9 N INTERNATIONAL NORMAL RATIO (test code = INR) 1.2 0.8-1.2 N TARGET INR BY INDICATION Indication INR1. Prophylaxis of venous thrombosis 2.0 - 3.0 (orthopedic surgery), Prophylaxis of venous thrombosis (other than high-risk surgery), Treatment of Deep Vein Thrombosis/Pulmonary Embolism, Prevention of systemic embolism - Tissue heart valves, Acute Myocardial Infarction (to prevent systemic embolism), Valvular heart disease, Atrial Fibrillation, Bileaflet mechanical valve in aortic position.2. Mechanical prosthetic valves (high risk), 2.5 - 3.5 Presence of Lupus Anticoagulant or Antiphospholipid Antibodies, Prevention of systemic embolism - Acute Myocardial Infarction (to prevent recurrent infarct). THROMBOPLASTIN TIME [id number] 10:59:00* Test Item Value Reference Range Interpretation Comments THROMBOPLASTIN TIME PARTIAL (test code = PTT) 31.9 Seconds 25.0-39. 5 N Therapeutic Range: 50.4 - 88.3 Seconds Effective 10/08/2018 - CT HEAD/BRAIN W/O [id number] 10:33:00 Name: EVA LANDON [facility] : 1970 Age/S: 48 / F [address] [place] [address] Unit #: [id number] Loc: [facility] [address] Phys: Rhys Be Acct: [id number] Dis Date: Status: PRE ER PHONE #: [phone] Exam Date: 10/09/2019 1017 FAX #: [phone] Reason: generalized extremity weakness EXAMS: CPT CODE: [id number] CT HEAD/BRAIN W/O CONT 10040 PROCEDURE: CT HEAD WITHOUT CONTRAST INDICATION: generalized extremity weakness; worsening right lower extremity weakness for one week. COMPARISON: 12/28/2016 TECHNIQUE: Noncontrast helical imaging performed skull base to the vertex. Multiplanar reformations are obtained. CT imaging performed at this location utilizes radiation dose optimization techniques which include one or more of the following: -Automated exposure control - Adjustment of the mA and/or kV according to patient size -Use of iterative reconstruction technique CT Radiation Dose DLP 435.31 mGy-cm LIMITATIONS: None. FINDINGS: BRAIN PARENCHYMA: The cerebral cortical architecture is normal. There are scattered areas of diminished attenuation in the cerebral white matter and white matter tracts. The midline structures and posterior fossa contents are unremarkable. There is no intra-axial or extra-axial hemorrhage, mass lesion or mass effect. C alcified plaque in the cavernous carotid arteries. Benign dural calcificat ions. VENTRICLES: The ventricular system is normal. The basilar cisterns are normal. ORBITS, MASTOIDS AND PARANASAL SINUSE S: The visualized orbits and paranasal sinuses are unremarkable. The masto id air cells are clear. SKULL: The calvarium is intact. IMPRESSION: 1. No hemorrhage, mass lesion or evidence of acute va scular territory infarct. 2. Deep cerebral white matter changes compatible with chronic microvascular ischemia. Demyelinating processes are in the differential. If there is continued clinica l concern, further imaging options include MRI. SL: Torri [id number] PAGE 1 Signed Report ( CONTINUED) Name: EVA LANDON [facility] [place] : 1970 Age/S: 48 / F [address] [place] [address] U nit #: [id number] Loc: [place] [address] Phys: Rhys Be Acct: [id number] Dis Date: Status: PRE ER PHONE #: [phone] Exam Date: 10/09/2019 1017 FAX #: [phone] Reason: generalized extremity weakness EXAMS: CPT CODE: [id number] CT HEAD/BRAIN W/O CONT 99953 <Continued> at 1033 Reported and signed by: Robinson Brown M.D. CC: Rhys INIGUEZ Technologist:Mariama Bryant RT(R)(CT) CTDI: DLP: Trnscb Date/Time: 10/09/2019 (7068) t .REYR.KWL Orig Print D/T: S: 10/09/2019 (5081) PAGE 2 Signed Report CBC W/AUTO [id number] 10:18:00* Test Item Value Reference Range Interpretation Comments WHITE BLOOD CELL (test code = WBC) 5.27 x10 3/uL 4.5-11.0 N RED BLOOD CELL (test code = RBC) 4.10 x10 6/uL 3.54-5.02 N HEMOGLOBIN (test code = HGB) 13.6 g/dL 11.0-15.0 N HEMATOCRIT (test code = HCT) 40.4 % 33.0-45.0 N MEAN CELL VOLUME (test code = MCV) 98.5 fL 81.0-99.0 N MEAN CELL HGB (test code = MCH) 33.2 pg 27.0-33.0 H MEAN CELL HGB CONCETRATION (test code = MCHC) 33.7 g/dL 33.0-37. 0 N RED CELL DISTRIBUTION WIDTH CV (test code = RDW) 15.7 % 11.5- 14.5 H RED CELL DISTRIBUTION WIDTH SD (test code = RDW-SD) 57.1 fL 37 .0-54.0 H PLATELET COUNT (test code = PLT) 290 x10 3/uL 150-400 N MEAN PLATELET VOLUME (test code = MPV) 9.9 fL 7.0-9.0 H NEUTROPHIL % (test code = NT%) 44.4 % 56.0-77.0 L IMMATURE GRANULOCYTE % (test code = IG%) 0.2 % 0.0-2.0 N LYMPHOCYTE % (test code = LY%) 45.5 % 14.0-32.0 H MONOCYTE % (test code = MO%) 7.4 % 4.8-9.0 N EOSINOPHIL % (test code = EO%) 2.3 % 0.3-3.7 N BASOPHIL % (test code = BA%) 0.2 % 0.0-2.0 N NUCLEATED RBC % (test code = NRBC%) 0.0 % 0-0 N NEUTROPHIL # (test code = NT#) 2.34 x10 3/uL 2.0-7.6 N IMMATURE GRANULOCYTE # (test code = IG#) 0.01 x10 3/uL 0.00-0.03 N LYMPHOCYTE # (test code = LY#) 2.40 x10 3/uL 1.0-3.8 N MONOCYTE # (test code = MO#) 0.39 x10 3/uL 0.1-0.8 N EOSINOPHIL # (test code = EO#) 0.12 x10 3/uL 0.0-0.2 N BASOPHIL # (test code = BA#) 0.01 x10 3/uL 0.0-0.2 N NUCLEATED RBC # (test code = NRBC#) 0.00 x10 3/uL 0.0-0.1 N MANUAL DIFF REQUIRED (test code = MDIFF) NO - XR CHEST 1 [id number] 10:16:00 FAX: Rhys Be [phone] [place]: [address]: PRE Name: EVA FERRARI [facility] : [birth year] Age/S: 48/F [address] [place] [address] Unit #: [id number] Loc: [place] [address] Phys: Rhys Be Acct: [id number] Dis Date: Status: PRE ER PHONE #: [phone] Exam Date: 10/09/2019 1013 FAX #: [phone] Reason: Chest Pain EXAMS: CPT CODE: [id number] XR CHEST 1 V 53562 EXAM: Single view AP chest. EXAM DATE: 10/09/2019 at 1007 hours CLINICAL HISTORY: Chest Pain COMPARISON: May 11, 2018 Median sternotomy wires are present. Heart size is upper limits of normal. Increased lung markings are identified in the lower lungs suggestive of atelectatic changes. The upper lungs are unremarkable. No effusions are identified. Imaged osseous structures are stable. IMPRES FRANSISCO: 1. Heart upper limits of normal in size. 2. Findings sug gestive of hypoventilatory changes lower lungs. Electronical ly Signed by Sergio Aranda on 10/09/2019 at 1016 Reported and signed by: Sarahy bell M.D. CC: Rhys INIGUEZ Technologist: Fidelia Moran, RT(R) T rnscrd Date/Time/By: 10/09/2019 (1016) : By: DillanRSonnyCER Orig Print D/T: S: 10/09/2019 (9956) PAGE 1 Sign ed Report [id number] 08:33:00* Test Item Value Reference Range Interpretation Comments TROPONIN-I (test code = TROPI) < 0.015 ng/mL 0.000-0.045 N Negative: <= 0.045 Positive: >= 0.046 Correlation with serial results, other cardiac markers andclinical findings is necessary to determine the clinicalsignificance of this result. Results using different methodologies should not be comparedto one another as quantitative results may vary by method. BASIC METABOLIC [id number] 08:18:00* Test Item Value Reference Range Interpretation Comments SODIUM (test code = NA) 137 mEq/L 134-147 N POTASSIUM (test code = K) 3.7 mEq/L 3.4-5.0 N CHLORIDE (test code = CL) 108 mEq/L 100-108 N CARBON DIOXIDE (test code = CO2) 22 mEq/L 21-33 N ANION GAP (test code = GAP) 11 0-20 N GLUCOSE (test code = GLU) 116 mg/dL 70-110 H BLOOD UREA NITROGEN (test code = BUN) 15 mg/dL 7-18 N GLOMERULAR FILTRATION RATE (test code = GFR) 80.5 95-105 L Units of measure = ml/min/1.73 m2 CREATININE (test code = CREAT) 0.9 mg/dL 0.6-1.3 N CALCIUM (test code = CA) 9.3 mg/dL 8.0-10.5 N CBC W/AUTO [id number] 07:09:00* Test Item Value Reference Range Interpretation Comments WHITE BLOOD CELL (test code = WBC) 9.25 x10 3/uL 4.5-11.0 N RED BLOOD CELL (test code = RBC) 3.64 x10 6/uL 3.54-5.02 N HEMOGLOBIN (test code = HGB) 11.8 g/dL 11.0-15.0 N HEMATOCRIT (test code = HCT) 35.4 % 33.0-45.0 N MEAN CELL VOLUME (test code = MCV) 97.3 fL 81.0-99.0 N MEAN CELL HGB (test code = MCH) 32.4 pg 27.0-33.0 N MEAN CELL HGB CONCETRATION (test code = MCHC) 33.3 g/dL 33.0-37. 0 N RED CELL DISTRIBUTION WIDTH CV (test code = RDW) 15.4 % 11.5- 14.5 H RED CELL DISTRIBUTION WIDTH SD (test code = RDW-SD) 55.3 fL 37 .0-54.0 H PLATELET COUNT (test code = PLT) 370 x10 3/uL 150-400 N MEAN PLATELET VOLUME (test code = MPV) 9.7 fL 7.0-9.0 H NEUTROPHIL % (test code = NT%) 71.6 % 56.0-77.0 N IMMATURE GRANULOCYTE % (test code = IG%) 0.2 % 0.0-2.0 N LYMPHOCYTE % (test code = LY%) 21.4 % 14.0-32.0 N MONOCYTE % (test code = MO%) 5.4 % 4.8-9.0 N EOSINOPHIL % (test code = EO%) 1.3 % 0.3-3.7 N BASOPHIL % (test code = BA%) 0.1 % 0.0-2.0 N NUCLEATED RBC % (test code = NRBC%) 0.0 % 0-0 N NEUTROPHIL # (test code = NT#) 6.62 x10 3/uL 2.0-7.6 N IMMATURE GRANULOCYTE # (test code = IG#) 0.02 x10 3/uL 0.00-0.03 N LYMPHOCYTE # (test code = LY#) 1.98 x10 3/uL 1.0-3.8 N MONOCYTE # (test code = MO#) 0.50 x10 3/uL 0.1-0.8 N EOSINOPHIL # (test code = EO#) 0.12 x10 3/uL 0.0-0.2 N BASOPHIL # (test code = BA#) 0.01 x10 3/uL 0.0-0.2 N NUCLEATED RBC # (test code = NRBC#) 0.00 x10 3/uL 0.0-0.1 N MANUAL DIFF REQUIRED (test code = MDIFF) NO - XR CHEST 1 [id number] 05:48:00 FAX: Jerad Weber MD [phone] [place]: St: REG Name: EVA SINGH [facility] : [birth year] Age/S: 48/F [address] [place] [address] Unit #: [id number] Loc: [address] [address] Phys: Jerad Parker MD Acct: [id number] Dis Date: Status: REG ER PHONE #: [phone] Exam Date: 07/15/2019 0543 FAX #: [phone] Reason: Chest Pain EXAMS: CPT CODE: [id number] XR CHEST 1 V 18500 Study: - XR CHEST 1 V 07/15/2019 5:27 AM Patient Name: EVA MG MR: [id number] : 1970; Age: 48 years y/o Female Ordering Physician: Jerad Parker MD Clinical Indication: Chest Pain Comparison: 07/14/2019 FINDINGS LUNGS: Pulmonary inflation has slightly decreased now associated with patient rotation toward the right. Hazy opacities in the lung bases likely represent subsegmental atelectasis with slightly more prominent right basilar opacity suggesting greater atelectasis, fluid in the right major fissure, or pneumonia. The previously identified left pleural effusion is no longer identified. No pneumothorax. HEART AND MEDIASTINUM: Stable mild cardiomegaly status post median ster notomy. LINES: None. OSSEOUS STRUCTURES: No fracture , dislocation, or suspicious focal osseous lesion. OTHER: No ne. IMPRESSION: Pulmonary inflation byrne s slightly decreased now associated with patient rotation toward the rig ht. Hazy opacities in the lung bases likely represent subsegmental atel ectasis with slightly more prominent right basilar opacity suggesting gr eater atelectasis, fluid in the right major fissure, or pneumonia. Stable mild cardiomegaly status post median sternotomy. SL: TPAINTER-H PAGE 1 S igned Report (CONTINUED) FAX: Jerad Weber MD [place]: St: REG Name: EVA MG [facility] : 1970 Age/S: 48/F [address] [place] [address] Unit #: [id number] Loc: [address] [address] Phys: Jerad Parker MD Acct: [id number] Dis Date: Status: REG ER PHONE #: [phone] Exam Date: 07/15/2019 05 FAX #: [phone] Reason: Chest Pain EXAMS: CPT CODE: [id number] XR CHEST 1 V 18775 < Continued> at 0548 Reported and signed by: Doug Martinez M.D. CC: Jerad Parker MD Technologist: Dilia Gruber, RT(R) Trnscrd Date/Time/By: 07/15/2019 (05) : By: [email or web address] Orig Print D/T: S: 07/15/2019 (0551) PAGE 2 Signed Report [id number] 12:49:00* Test Item Value Reference Range Interpretation Comments TROPONIN-I (test code = TROPI) < 0.015 ng/mL 0.000-0.045 N Negative: <= 0.045 Positive: >= 0.046 Correlation with serial results, other cardiac markers andclinical findings is necessary to determine the clinicalsignificance of this result. Results using different methodologies should not be comparedto one another as quantitative results may vary by method. COMMENTS: 3 troponins total (including troponin done in ED)[id number] 07:06:00* Test Item Value Reference Range Interpretation Comments TROPONIN-I (test code = TROPI) < 0.015 ng/mL 0.000-0.045 N Negative: <= 0.045 Positive: >= 0.046 Correlation with serial results, other cardiac markers andclinical findings is necessary to determine the clinicalsignificance of this result. Results using different methodologies should not be comparedto one another as quantitative results may vary by method. COMMENTS: 3 troponins total (including troponin done in ED)UA RFLX MICR CULT IF [id number] 06:34:00* Test Item Value Reference Range Interpretation Comments UA COLOR (test code = COLU) YELLOW YEL/STRAW UA APPEARANCE (test code = APPU) CLEAR CLEAR UA GLUCOSE DIPSTICK (test code = DGLUU) NEGATIVE NEGATIVE UA BILIRUBIN DIPSTICK (test code = BILU) NEGATIVE NEGATIVE UA KETONE DIPSTICK (test code = KETU) NEGATIVE NEGATIVE UA SPECIFIC GRAVITY (test code = SGU) 1.010 1.005-1.030 N UA BLOOD DIPSTICK (test code = DARREN) NEGATIVE NEGATIVE UA PH DIPSTICK (test code = LUBA) 6.0 5.0-7.0 N UA PROTEIN DIPSTICK (test code = PROU) NEGATIVE NEGATIVE UA UROBILINIOGEN DIPSTICK (test code = URO) 0.2 mg/dL 0.2-1.0 UA NITRITE DIPSTICK (test code = SHAD) NEGATIVE NEGATIVE UA LEUKOCYTE ESTERASE DIPSTICK (test code = LEUU) NEGATIVE NEGA TIVE UA WBC (test code = WBCU) 0-3 WBC/HPF 0-3 UA RBC (test code = RBCU) 0-3 RBC/HPF 0-3 UA WBC NO REFLEX (test code = WBCUCL) 0-3 WBC/HPF 0-3 UA BACTERIA (test code = BACU) 1+ /HPF NONE SEEN A UA SQUAMOUS CELLS (test code = SQU) 0-5 /HPF NONE SEEN UA HYALINE CAST (test code = HYALU) 6-10 /LPF NONE SEEN UA MUCUS (test code = MUCU) TRACE /LPF NONE SEEN Indication for culture: Temperature > 100.4 F Suprapubic PainSpecimen Description: CLEAN CATCH- CTA CHEST FOR [id number] 06:12:00 Name: EVA MG : 1970 Age/S: 48 / F [address] [facility] Unit #: [id number] Loc: [place] [address] Phys: Ildefonso Fong MD Acct: [id number] Dis Date: Status: REG ER PHONE #: [phone] Exam Date: 07/06/2019 0541 FAX #: [phone] Reason: syncope, hx of VTE, elevated d dimer EXAMS: CPT CODE: [id number] [place] [address] STUDY: - CTA CHEST FOR PE 07/06/2019 4:32 AM Ordering Physician: Ildefonso Fong MD Patient Name: EVA MG MR: [id number] : 1970; Age: 48 years y/o Female Clinical Indication: syncope, hx of VTE, elevated d dimer Comparison: 06/11/2019 TECHNIQUE: Sequential trans-axial images were obtained with a multi-detector helical CT after iodinated contrast administration. Coronal, sagittal, and 3-D MIP reconstructions were performed. CT imaging performed at this location utilizes radiation dose optimization techniques which include one or more of the following: -Automated exposure control -Adjustment of the mA and/or kV according to patient size -Use of iterative reconstruction shaquille hnique IV CONTRAST: [address] Radiation Dose DLP : 448.95 mGy-cm FINDINGS: VASCULAR EVALUAT ION THORACIC AORTA: Normal caliber without aneurysm or dissection. PULMONARY ARTERIES: No evidence of pulmonary embolus. NONVASCULAR EVALUATION LUNGS: Well inflated lungs without consolidation, pleural effusion, or pneumothorax. Mild bilateral basilar subsegmental atelectasis and scarring. AIRWAY: Clear central tracheobronchial tree. HEART: Mild cardiomegaly associated with mild to moderate coronary artery calcifications, trace pericardial effusi on, and median PAGE 1 Signed Report (CONTINUED) Name: EVA MG : 1970 Age/S: 48 / F [address] [facility] Unit #: [id number] Loc: [place] [address] Ph ys: Ildefonso Fong MD Acct: [id number] Dis Date: Status: REG ER PHONE #: [phone] Exam Date: 07/06/2019 0541 FAX #: [phone] Reason: syncope, hx of VTE, elevated d dimer EXAMS: CPT CODE: [id number] [place] [address] <Continued> sternotomy. MEDIASTINUM AND JAZ: Stable mottled soft tissue density in the anterior mediastinum likely representing scarring and small lymph nodes. No interval lymphadenopathy or mass is appreciated. VISUALIZED UPPER ABDOMEN: Small cyst measuring 2.2 cm in the right superior renal pole. SOFT TISSUES: No suspicious soft tissue le fransisco or abnormality. OSSEOUS STRUCTURES: No fracture, dislocation, or suspicious focal osseous lesion. IMPRESSION: No evidence of pulmonary embolus. Mild cardi omegaly associated with mild to moderate coronary artery calcifications, trace pericardial effusion, and median sternotomy. Stable soft tissue density in the anterior mediastinum likely representing scarring and small lymph nodes. Small right renal cyst. SL: TPAINTER-H Electron ically Signed by Sergio Martinez on 07/06/2019 at 0612 Reported and signed by: Doug knowles M.D. CC: Ildefonso Fong MD Techn ologist:Glenn Bolden, RT(R)(CT) CTDI: DLP: Trnscb Date/Sridhar e: 07/06/2019 (611) [email or web address] Orig Print D/T: S: 020 (5771) PAGE 2 Signed Report - CT HEAD/BRAIN W/O [id number] 04:36:00 Name: EVA MG [facility] : 1970 Age/S: 48 / F [address] [place] [address] Unit #: [id number] Loc: [place] [address] Phys: Ildefonso Fong MD Acct: [id number] Dis Date: Status: REG ER PHONE #: [phone] Exam Date: 07/06/2019 0421 FAX #: [phone] Reason: diffuse weakness, hx of CVA EXAMS: CPT CODE: [id number] CT HEAD/BRAIN W/O CONT 86496 STUDY: - CT HEAD/BRAIN W/O CONT 07/06/2019 3:54 AM Ordering Physician: Ildefonso Fong MD Patient Name: EVA MG MR: [id number] : 1970; Age: 48 years y/o Female Clinical Indication: diffuse weakness, hx of CVA Comparison: None TECHNIQUE: Multiple contiguous transaxial noncontrast CT images were obtained through the head. Coronal and sagittal reformatted images were prepared. 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 No evidence of acute intracranial hemorrhage, mass lesio n, mass effect, midline shift, or extra-axial fluid collection. Incidental empty sella. VENTRICLES: The lateral ventricles, t hird ventricle, fourth ventricle, and basilar cisterns are appropriate for degree of atrophy present. PARANASAL SINUSES: The visualized port ions of the paranasal sinuses are clear. MASTOIDS: Clear. ORBITS: The visualized portions of the orbits are normal. PAGE 1 Signed Report (CONTINUED) N maximiliano: EVA MG [facility] : 0 1970 Age/S: 48 / F [address] [place] [address] Unit #: [id number] Loc: [place] [address] Phys: Segun Fong MD Acct: [id number] Dis D ate: Status: REG ER PHONE #: Exam Date: 07/06/2019420 FAX #: [phone] Reason: diffuse weakness, hx of CVA EXAMS: CPT CODE: [id number] CT HEAD/BRAIN W/O CONT 16361 <Continued> SOFT TISSUES: No significant abnormality. SKULL: No acute fracture or suspicious osseous lesion. IMPRESSION: Minimal diffuse age-appropriate atrophy is present associated with mild nonspecific periventricular low attenuation most consistent with old microangiopathic ischemic change. No acute intracranial abnormality. SL: TPAINTER-H at 0436 Reported and signed by: Doug Martinez M.D. CC: Ildefonso Fong MD Technologist:Glenn Bolden, RT(R)(CT) CTDI: DLP: Trnscb Date/Time: 07/06/2019 (0436) [email or web address] Orig Print D/T: S: 07/06/2019 (0433) PAGE 2 Signed Report [id number] 04:19:00* Test Item Value Reference Range Interpretation Comments D-DIMER (test code = DDIMER) 1617 ng/mlFEU <=500 HH THROMBOSIS AND/OR PULMONARY EMBOLISM AND THE CLINICAL CUT- OFF VALUE FOR EXCLUSION (500 ng/mL FEU) OF THESE CONDITIONSIS VALIDATED BY THE HEATER OPERATOR HELPER OF THE METHOD. A NEGATIVE D-DIMER RESULT WHEN COMBINED WITH A CLINICALASSESSMENT OF LOW PRETEST PROBABILITY HAS BEEN SHOWN TO HAVEA HIGH NEGATIVE PREDICTIVE VALUE OF DVT OR PE. D-DIMER VALUES >500 ng/mL FEU ARE NOT DIAGNOSTIC FOR DVT, PEor DIC WITHOUT OTHER CONFIRMATORY TESTS AND APPROPRIATECLINICAL EUALUATIONS. B-TYPE NATRIURETIC [id number] 04:17:00* Test Item Value Reference Range Interpretation Comments B-TYPE NATRIURETIC PEPTIDE (test code = BNP) 54.9 PG/ML 0-100 N HCG SERUM [id number] 04:16:00* Test Item Value Reference Range Interpretation Comments HCG SERUM QUAL (test code = HCGQL) SERUM NEGATIVE NEGATIVE [id number] 03:44:00* Test Item Value Reference Range Interpretation Comments MAGNESIUM (test code = MAG) 2.00 mg/dL 1.8-2.4 N CHEMISTRY 8 [id number] 03:36:00* Test Item Value Reference Range Interpretation Comments ISTAT-SODIUM (test code = NAP) MMOL/L 134-147 ISTAT-POTASSIUM (test code = KP) MMOL/L 3.4-5.0 ISTAT-CHLORIDE (test code = CLP) MMOL/L 100-108 ISTAT CARBON DIOXIDE (test code = ISTAT-CO2) mmol/L 21-33 N ISTAT CALCIUM IONIZED (test code = ISTAT-TIMUR) MG/DL 1.12-1.3 2 ISTAT-GLUCOSE (test code = GLUP) MG/DL 70-110 N ISTAT-BUN (test code = BUNP) MG/DL 7-18 H BEDSIDE CREATININE (test code = CREATBED) MG/DL 0.6-1.3 N GLOMERULAR FILTRATION RATE POC (test code = GFRBED) 68 ML/MIN CHEMISTRY 8 [id number] 03:36:00* Test Item Value Reference Range Interpretation Comments ISTAT-SODIUM (test code = NAP) 141 MMOL/L 134-147 N ISTAT-POTASSIUM (test code = KP) 3.9 MMOL/L 3.4-5.0 N ISTAT-CHLORIDE (test code = CLP) 104 MMOL/L 100-108 N Performed by certified ski lift operator at [facility] ISTAT CARBON DIOXIDE (test code = ISTAT-CO2) 28.0 mmol/L 21-33 N ISTAT CALCIUM IONIZED (test code = ISTAT-TIMUR) 1.12 MG/DL 1.12-1.3 2 N ISTAT-GLUCOSE (test code = GLUP) 93 MG/DL 70-110 N ISTAT-BUN (test code = BUNP) 22 MG/DL 7-18 H BEDSIDE CREATININE (test code = CREATBED) 1.1 MG/DL 0.6-1.3 N GLOMERULAR FILTRATION RATE POC (test code = GFRBED) 68 ML/MIN CBC W/AUTO [id number] 03:34:00* Test Item Value Reference Range Interpretation Comments WHITE BLOOD CELL (test code = WBC) 7.93 x10 3/uL 4.5-11.0 N RED BLOOD CELL (test code = RBC) 3.50 x10 6/uL 3.54-5.02 L HEMOGLOBIN (test code = HGB) 11.3 g/dL 11.0-15.0 N HEMATOCRIT (test code = HCT) 35.0 % 33.0-45.0 N MEAN CELL VOLUME (test code = MCV) 100.0 fL 81.0-99.0 H MEAN CELL HGB (test code = MCH) 32.3 pg 27.0-33.0 N MEAN CELL HGB CONCETRATION (test code = MCHC) 32.3 g/dL 33.0-37. 0 L RED CELL DISTRIBUTION WIDTH CV (test code = RDW) 15.8 % 11.5- 14.5 H RED CELL DISTRIBUTION WIDTH SD (test code = RDW-SD) 58.0 fL 37 .0-54.0 H PLATELET COUNT (test code = PLT) 355 x10 3/uL 150-400 N MEAN PLATELET VOLUME (test code = MPV) 9.5 fL 7.0-9.0 H NEUTROPHIL % (test code = NT%) 45.4 % 56.0-77.0 L IMMATURE GRANULOCYTE % (test code = IG%) 0.3 % 0.0-2.0 N LYMPHOCYTE % (test code = LY%) 41.5 % 14.0-32.0 H MONOCYTE % (test code = MO%) 9.3 % 4.8-9.0 H EOSINOPHIL % (test code = EO%) 3.4 % 0.3-3.7 N BASOPHIL % (test code = BA%) 0.1 % 0.0-2.0 N NUCLEATED RBC % (test code = NRBC%) 0.0 % 0-0 N NEUTROPHIL # (test code = NT#) 3.60 x10 3/uL 2.0-7.6 N IMMATURE GRANULOCYTE # (test code = IG#) 0.02 x10 3/uL 0.00-0.03 N LYMPHOCYTE # (test code = LY#) 3.29 x10 3/uL 1.0-3.8 N MONOCYTE # (test code = MO#) 0.74 x10 3/uL 0.1-0.8 N EOSINOPHIL # (test code = EO#) 0.27 x10 3/uL 0.0-0.2 H BASOPHIL # (test code = BA#) 0.01 x10 3/uL 0.0-0.2 N NUCLEATED RBC # (test code = NRBC#) 0.00 x10 3/uL 0.0-0.1 N MANUAL DIFF REQUIRED (test code = MDIFF) NO TROPONIN-I [id number] 03:22:00* Test Item Value Reference Range Interpretation Comments TROPONIN-I RAPID (test code = TROPIRAP) 0.01 ng/mL 0.00-0.08 N Performed by certified ski lift operator at [facility] Negative: <= 0.08 Positive: >= 0.09An elevated troponin value alone is not sufficient todiagnose a myocardial infarction. Rather, the patient sclinical presentation (history, physical exam) and ECGshould be used in conjunction with troponin in thediagnostic evaluation of suspected myocardial infarction. Aserial sampling protocol is recommended to facilitate the identification of temporal changes in troponin levels characteristic of [place]. CBC W/AUTO [id number] 09:00:00* Test Item Value Reference Range Interpretation Comments WHITE BLOOD CELL (test code = WBC) 5.73 x10 3/uL 4.5-11.0 N RED BLOOD CELL (test code = RBC) 3.06 x10 6/uL 3.54-5.02 L HEMOGLOBIN (test code = HGB) 9.9 g/dL 11.0-15.0 L HEMATOCRIT (test code = HCT) 30.6 % 33.0-45.0 L MEAN CELL VOLUME (test code = MCV) 100.0 fL 81.0-99.0 H MEAN CELL HGB (test code = MCH) 32.4 pg 27.0-33.0 N MEAN CELL HGB CONCETRATION (test code = MCHC) 32.4 g/dL 33.0-37. 0 L RED CELL DISTRIBUTION WIDTH CV (test code = RDW) 15.5 % 11.5- 14.5 H RED CELL DISTRIBUTION WIDTH SD (test code = RDW-SD) 57.3 fL 37 .0-54.0 H PLATELET COUNT (test code = PLT) 306 x10 3/uL 150-400 N MEAN PLATELET VOLUME (test code = MPV) 9.7 fL 7.0-9.0 H NEUTROPHIL % (test code = NT%) 30.1 % 56.0-77.0 L IMMATURE GRANULOCYTE % (test code = IG%) 0.3 % 0.0-2.0 N LYMPHOCYTE % (test code = LY%) 56.0 % 14.0-32.0 H MONOCYTE % (test code = MO%) 9.2 % 4.8-9.0 H EOSINOPHIL % (test code = EO%) 4.2 % 0.3-3.7 H BASOPHIL % (test code = BA%) 0.2 % 0.0-2.0 N NUCLEATED RBC % (test code = NRBC%) 0.0 % 0-0 N NEUTROPHIL # (test code = NT#) 1.72 x10 3/uL 2.0-7.6 L IMMATURE GRANULOCYTE # (test code = IG#) 0.02 x10 3/uL 0.00-0.03 N LYMPHOCYTE # (test code = LY#) 3.21 x10 3/uL 1.0-3.8 N MONOCYTE # (test code = MO#) 0.53 x10 3/uL 0.1-0.8 N EOSINOPHIL # (test code = EO#) 0.24 x10 3/uL 0.0-0.2 H BASOPHIL # (test code = BA#) 0.01 x10 3/uL 0.0-0.2 N NUCLEATED RBC # (test code = NRBC#) 0.00 x10 3/uL 0.0-0.1 N MANUAL DIFF REQUIRED (test code = MDIFF) NO BASIC METABOLIC [id number] 08:22:00* Test Item Value Reference Range Interpretation Comments SODIUM (test code = NA) 141 mEq/L 134-147 N POTASSIUM (test code = K) 3.9 mEq/L 3.4-5.0 N CHLORIDE (test code = CL) 107 mEq/L 100-108 N CARBON DIOXIDE (test code = CO2) 24 mEq/L 21-33 N ANION GAP (test code = GAP) 14 0-20 N GLUCOSE (test code = GLU) 90 mg/dL 70-110 N BLOOD UREA NITROGEN (test code = BUN) 16 mg/dL 7-18 N GLOMERULAR FILTRATION RATE (test code = GFR) 63.9 95-105 L Units of measure = ml/min/1.73 m2 CREATININE (test code = CREAT) 1.1 mg/dL 0.6-1.3 CALCIUM (test code = CA) 8.7 mg/dL 8.0-10.5 N BASIC METABOLIC [id number] 07:16:00* Test Item Value Reference Range Interpretation Comments SODIUM (test code = NA) 140 mEq/L 134-147 N POTASSIUM (test code = K) 4.1 mEq/L 3.4-5.0 N CHLORIDE (test code = CL) 110 mEq/L 100-108 H CARBON DIOXIDE (test code = CO2) 26 mEq/L 21-33 N ANION GAP (test code = GAP) 8 0-20 N GLUCOSE (test code = GLU) 92 mg/dL 70-110 N BLOOD UREA NITROGEN (test code = BUN) 17 mg/dL 7-18 N GLOMERULAR FILTRATION RATE (test code = GFR) 92.2 95-105 L Units of measure = ml/min/1.73 m2 CREATININE (test code = CREAT) 0.8 mg/dL 0.6-1.3 N CALCIUM (test code = CA) 8.8 mg/dL 8.0-10.5 N [id number] 07:16:00* Test Item Value Reference Range Interpretation Comments MAGNESIUM (test code = MAG) 2.10 mg/dL 1.8-2.4 N TSH REFLEX TO [id number] 07:16:00* Test Item Value Reference Range Interpretation Comments TSH REFLEX TO FT4 (test code = TSHREFLEX) 1.02 IU/mL 0.42-5.47 N BASIC METABOLIC [id number] 07:15:00* Test Item Value Reference Range Interpretation Comments SODIUM (test code = NA) 140 mEq/L 134-147 N POTASSIUM (test code = K) 4.1 mEq/L 3.4-5.0 N CHLORIDE (test code = CL) 110 mEq/L 100-108 H CARBON DIOXIDE (test code = CO2) 26 mEq/L 21-33 N ANION GAP (test code = GAP) 8 0-20 N GLUCOSE (test code = GLU) 92 mg/dL 70-110 N BLOOD UREA NITROGEN (test code = BUN) 17 mg/dL 7-18 N GLOMERULAR FILTRATION RATE (test code = GFR) 95-105 CREATININE (test code = CREAT) mg/dL 0.6-1.3 CALCIUM (test code = CA) 8.8 mg/dL 8.0-10.5 N [id number] 07:15:00* Test Item Value Reference Range Interpretation Comments MAGNESIUM (test code = MAG) 2.10 mg/dL 1.8-2.4 N TSH REFLEX TO [id number] 07:15:00* Test Item Value Reference Range Interpretation Comments TSH REFLEX TO FT4 (test code = TSHREFLEX) IU/mL 0.42-5.47 HGBA1C%2019-07-03 06:35:00* Test Item Value Reference Range Interpretation Comments HGBA1C% (test code = HGBA1C%) 5.3 %A1C 4.8-6.0 N [id number] 06:24:00* Test Item Value Reference Range Interpretation Comments TROPONIN-I (test code = TROPI) < 0.015 ng/mL 0.000-0.045 N Negative: <= 0.045 Positive: >= 0.046 Correlation with serial results, other cardiac markers andclinical findings is necessary to determine the clinicalsignificance of this result. Results using different methodologies should not be comparedto one another as quantitative results may vary by method. COMMENTS: 3 troponins total (including troponin done in ED)CBC W/AUTO DIFF 2019-07-03 06:06:00* Test Item Value Reference Range Interpretation Comments WHITE BLOOD CELL (test code = WBC) 5.02 x10 3/uL 4.5-11.0 N RED BLOOD CELL (test code = RBC) 3.06 x10 6/uL 3.54-5.02 L HEMOGLOBIN (test code = HGB) 10.0 g/dL 11.0-15.0 L HEMATOCRIT (test code = HCT) 30.7 % 33.0-45.0 L MEAN CELL VOLUME (test code = MCV) 100.3 fL 81.0-99.0 H MEAN CELL HGB (test code = MCH) 32.7 pg 27.0-33.0 N MEAN CELL HGB CONCETRATION (test code = MCHC) 32.6 g/dL 33.0-37. 0 L RED CELL DISTRIBUTION WIDTH CV (test code = RDW) 15.7 % 11.5- 14.5 H RED CELL DISTRIBUTION WIDTH SD (test code = RDW-SD) 57.3 fL 37 .0-54.0 H PLATELET COUNT (test code = PLT) 290 x10 3/uL 150-400 N MEAN PLATELET VOLUME (test code = MPV) 9.7 fL 7.0-9.0 H NEUTROPHIL % (test code = NT%) 26.8 % 56.0-77.0 L IMMATURE GRANULOCYTE % (test code = IG%) 0.0 % 0.0-2.0 N LYMPHOCYTE % (test code = LY%) 59.2 % 14.0-32.0 H MONOCYTE % (test code = MO%) 8.2 % 4.8-9.0 N EOSINOPHIL % (test code = EO%) 5.6 % 0.3-3.7 H BASOPHIL % (test code = BA%) 0.2 % 0.0-2.0 N NUCLEATED RBC % (test code = NRBC%) 0.0 % 0-0 N NEUTROPHIL # (test code = NT#) 1.35 x10 3/uL 2.0-7.6 L IMMATURE GRANULOCYTE # (test code = IG#) 0.00 x10 3/uL 0.00-0.03 N LYMPHOCYTE # (test code = LY#) 2.97 x10 3/uL 1.0-3.8 N MONOCYTE # (test code = MO#) 0.41 x10 3/uL 0.1-0.8 N EOSINOPHIL # (test code = EO#) 0.28 x10 3/uL 0.0-0.2 H BASOPHIL # (test code = BA#) 0.01 x10 3/uL 0.0-0.2 N NUCLEATED RBC # (test code = NRBC#) 0.00 x10 3/uL 0.0-0.1 N MANUAL DIFF REQUIRED (test code = MDIFF) NO CBC W/AUTO [id number] 15:27:00* Test Item Value Reference Range Interpretation Comments WHITE BLOOD CELL (test code = WBC) 5.84 x10 3/uL 4.5-11.0 N RED BLOOD CELL (test code = RBC) 3.36 x10 6/uL 3.54-5.02 L HEMOGLOBIN (test code = HGB) 10.8 g/dL 11.0-15.0 L HEMATOCRIT (test code = HCT) 34.4 % 33.0-45.0 N MEAN CELL VOLUME (test code = MCV) 102.4 fL 81.0-99.0 H MEAN CELL HGB (test code = MCH) 32.1 pg 27.0-33.0 N MEAN CELL HGB CONCETRATION (test code = MCHC) 31.4 g/dL 33.0-37. 0 L RED CELL DISTRIBUTION WIDTH CV (test code = RDW) 15.3 % 11.5- 14.5 H RED CELL DISTRIBUTION WIDTH SD (test code = RDW-SD) 57.6 fL 37 .0-54.0 H PLATELET COUNT (test code = PLT) 322 x10 3/uL 150-400 N MEAN PLATELET VOLUME (test code = MPV) 9.4 fL 7.0-9.0 H NEUTROPHIL % (test code = NT%) 43.8 % 56.0-77.0 L IMMATURE GRANULOCYTE % (test code = IG%) 0.2 % 0.0-2.0 N LYMPHOCYTE % (test code = LY%) 44.7 % 14.0-32.0 H MONOCYTE % (test code = MO%) 7.7 % 4.8-9.0 N EOSINOPHIL % (test code = EO%) 3.4 % 0.3-3.7 N BASOPHIL % (test code = BA%) 0.2 % 0.0-2.0 N NUCLEATED RBC % (test code = NRBC%) 0.0 % 0-0 N NEUTROPHIL # (test code = NT#) 2.56 x10 3/uL 2.0-7.6 N IMMATURE GRANULOCYTE # (test code = IG#) 0.01 x10 3/uL 0.00-0.03 N LYMPHOCYTE # (test code = LY#) 2.61 x10 3/uL 1.0-3.8 N MONOCYTE # (test code = MO#) 0.45 x10 3/uL 0.1-0.8 N EOSINOPHIL # (test code = EO#) 0.20 x10 3/uL 0.0-0.2 N BASOPHIL # (test code = BA#) 0.01 x10 3/uL 0.0-0.2 N NUCLEATED RBC # (test code = NRBC#) 0.00 x10 3/uL 0.0-0.1 N MANUAL DIFF REQUIRED (test code = MDIFF) NO SLIDE REVIEWED, CONSISTENT WITH AUTO DIFF. CBC W/AUTO [id number] 15:22:00* Test Item Value Reference Range Interpretation Comments WHITE BLOOD CELL (test code = WBC) 5.84 x10 3/uL 4.5-11.0 N RED BLOOD CELL (test code = RBC) 3.36 x10 6/uL 3.54-5.02 L HEMOGLOBIN (test code = HGB) 10.8 g/dL 11.0-15.0 L HEMATOCRIT (test code = HCT) 34.4 % 33.0-45.0 N MEAN CELL VOLUME (test code = MCV) 102.4 fL 81.0-99.0 H MEAN CELL HGB (test code = MCH) 32.1 pg 27.0-33.0 N MEAN CELL HGB CONCETRATION (test code = MCHC) 31.4 g/dL 33.0-37. 0 L RED CELL DISTRIBUTION WIDTH CV (test code = RDW) 15.3 % 11.5- 14.5 H RED CELL DISTRIBUTION WIDTH SD (test code = RDW-SD) 57.6 fL 37 .0-54.0 H PLATELET COUNT (test code = PLT) 322 x10 3/uL 150-400 N MEAN PLATELET VOLUME (test code = MPV) 9.4 fL 7.0-9.0 H NEUTROPHIL % (test code = NT%) % 56.0-77.0 LYMPHOCYTE % (test code = LY%) % 14.0-32.0 NEUTROPHIL # (test code = NT#) x10 3/uL 2.0-7.6 LYMPHOCYTE # (test code = LY#) x10 3/uL 1.0-3.8 MANUAL DIFF REQUIRED (test code = MDIFF) COMPREHENSIVE METABOLIC [id number] 15:19:00* Test Item Value Reference Range Interpretation Comments SODIUM (test code = NA) 144 mEq/L 134-147 N POTASSIUM (test code = K) 4.0 mEq/L 3.4-5.0 N CHLORIDE (test code = CL) 112 mEq/L 100-108 H CARBON DIOXIDE (test code = CO2) 28 mEq/L 21-33 N ANION GAP (test code = GAP) 8 0-20 N GLUCOSE (test code = GLU) 88 mg/dL 70-110 N BLOOD UREA NITROGEN (test code = BUN) 15 mg/dL 7-18 N GLOMERULAR FILTRATION RATE (test code = GFR) 92.2 95-105 L Units of measure = ml/min/1.73 m2 CREATININE (test code = CREAT) 0.8 mg/dL 0.6-1.3 N TOTAL PROTEIN (test code = PROT) 8.2 g/dL 6.4-8.2 N ALBUMIN (test code = ALB) 3.40 g/dL 3.4-5.0 N CALCIUM (test code = CA) 8.6 mg/dL 8.0-10.5 N BILIRUBIN TOTAL (test code = BILT) 0.2 MG/DL <1.5 N SGOT/AST (test code = AST) 16 IUnit/L 15-37 N SGPT/ALT (test code = ALT) 20 IUnit/L 15-65 N ALKALINE PHOSPHATASE TOTAL (test code = ALKP) 58 IUnit/L 20-125 N [id number] 15:19:00* Test Item Value Reference Range Interpretation Comments LIPASE (test code = LIP) 138 IUnit/L 73-393 N [id number] 15:19:00* Test Item Value Reference Range Interpretation Comments TROPONIN-I (test code = TROPI) < 0.015 ng/mL 0.000-0.045 N Negative: <= 0.045 Positive: >= 0.046 Correlation with serial results, other cardiac markers andclinical findings is necessary to determine the clinicalsignificance of this result. Results using different methodologies should not be comparedto one another as quantitative results may vary by method. COMPREHENSIVE METABOLIC [id number] 15:17:00* Test Item Value Reference Range Interpretation Comments SODIUM (test code = NA) mEq/L 134-147 POTASSIUM (test code = K) mEq/L 3.4-5.0 CHLORIDE (test code = CL) mEq/L 100-108 CARBON DIOXIDE (test code = CO2) mEq/L 21-33 ANION GAP (test code = GAP) 0-20 GLUCOSE (test code = GLU) mg/dL 70-110 BLOOD UREA NITROGEN (test code = BUN) mg/dL 7-18 GLOMERULAR FILTRATION RATE (test code = GFR) 95-105 CREATININE (test code = CREAT) mg/dL 0.6-1.3 TOTAL PROTEIN (test code = PROT) g/dL 6.4-8.2 ALBUMIN (test code = ALB) g/dL 3.4-5.0 CALCIUM (test code = CA) mg/dL 8.0-10.5 BILIRUBIN TOTAL (test code = BILT) MG/DL <1.5 SGOT/AST (test code = AST) IUnit/L 15-37 SGPT/ALT (test code = ALT) IUnit/L 15-65 ALKALINE PHOSPHATASE TOTAL (test code = ALKP) IUnit/L 20-125 [id number] 15:17:00* Test Item Value Reference Range Interpretation Comments LIPASE (test code = LIP) IUnit/L 73-393 [id number] 15:17:00* Test Item Value Reference Range Interpretation Comments TROPONIN-I (test code = TROPI) < 0.015 ng/mL 0.000-0.045 N Negative: <= 0.045 Positive: >= 0.046 Correlation with serial results, other cardiac markers andclinical findings is necessary to determine the clinicalsignificance of this result. Results using different methodologies should not be comparedto one another as quantitative results may vary by method. TROPONIN-I [id number] 14:27:00* Test Item Value Reference Range Interpretation Comments TROPONIN-I RAPID (test code = TROPIRAP) 0.00 ng/mL 0.00-0.08 N Performed by certified ski lift operator at [facility] Negative: <= 0.08 Positive: >= 0.09An elevated troponin value alone is not sufficient todiagnose a myocardial infarction. Rather, the patient sclinical presentation (history, physical exam) and ECGshould be used in conjunction with troponin in thediagnostic evaluation of suspected myocardial infarction. Aserial sampling protocol is recommended to facilitate the identification of temporal changes in troponin levels characteristic of [place]. - XR CHEST 1 [id number] 13:45:00 [place]: [address]: REG Name: EVA SINGH [facility] : [birth year] Age/S: 48/F [address] [place] [address] Unit #: [id number] Loc: [place] [address] Phys: Tito Chauhan MD Acct: [id number] Dis Date: Status: REG ER PHONE #: [phone] Exam Date: 07/02/2019 1343 FAX #: [phone] Reason: chest pain EXAMS: CPT CODE: [id number] XR CHEST 1 V 71416 One [facility] 1331 hours. COMPARISON: June 09, 2019. CLINICAL HISTORY: chest pain. DISCUSSION: Single one view PA chest is submitted. Sternal wires are noted. Cardiomediastinal silhouette is normal in size. Minimal linear atelectasis in the left lung base. There is slight blunting of the left costophrenic angle, probable small effu fransisco. Otherwise lungs are clear. Osseous structures within normal limits. Impression: Linear atelectasis in the left lung base with probable small left effusion at 1345 Reported and signed b y: Coco Bass M.D. CC: Technologist: RT Mary(Delroy) Trnscrd Date/Time/By: 07/02/2019 (0851) : By: Jeffrey Orig Print D/T: S: 07/02/2019 (3478) PAGE 1 Signed Report - DUP VEIN [id number] 14:58:00 Name: EVA MG [facility] : 1970 Age/S: 48 / F [address] [place] [address] Unit #: [id number] Loc: [place] [address] Phys: Montana Sanders NP Acct: [id number] Dis Date: Status: ADM IN PHONE #: [phone] Exam Date: 06/12/2019 1351 FAX #: [phone] Reason: r/o dvt EXAMS: CPT CODE: [id number] DUP VEIN BUBBA 09410 Clinical Indication: Lower extremity edema; recent CABG, left lower extremity vein harvest. Comparison: None TECHNIQUE: Sonographic evaluation of the bilateral lower extremity veins was performed using high resolution B-mode imaging, along with pulse and color Doppler imaging. FINDINGS: Right lower extremity: The common femoral vein, femoral vein, popliteal vein and visualized posterior tibial/calf veins are patent. There is no echogenic debris to suggest deep venous thrombosis. The saphenofemoral junction is unremarkable. Left lower extremity: The common femoral vein, femoral vein, popliteal vein and visualized posterior tibial/calf veins are patent. There is no echogenic debris to suggest deep venous thrombosis. Residual great saphenous vein near the saphenofemoral junction shows expected thrombosis post vein harvest. IMPRESSION: No deep venous thrombosis of the lower extremities. Residual left great saphenous vein near the saphenofemoral junction shows expected thrombosis post vein harvest. SL: [id number] at 2108 Reported and signed by: Efrain Loco M.D. CC: Montana Sanders PAPER MILL MANAGER; Lito Chanel MD Technologist: Arcenio Pang RDMS (AB) (OB) Trnscb Date/Time: 06/12/2019 (3677) [email or web address] Orig Print D/T: S: 06/12/2019 (8392) Probe: PAGE 1 Signed Report CBC W/AUTO [id number] 05:22:00* Test Item Value Reference Range Interpretation Comments WHITE BLOOD CELL (test code = WBC) 6.70 x10 3/uL 4.5-11.0 N RED BLOOD CELL (test code = RBC) 2.73 x10 6/uL 3.54-5.02 L HEMOGLOBIN (test code = HGB) 8.7 g/dL 11.0-15.0 L HEMATOCRIT (test code = HCT) 27.3 % 33.0-45.0 L MEAN CELL VOLUME (test code = MCV) 100.0 fL 81.0-99.0 H MEAN CELL HGB (test code = MCH) 31.9 pg 27.0-33.0 N MEAN CELL HGB CONCETRATION (test code = MCHC) 31.9 g/dL 33.0-37. 0 L RED CELL DISTRIBUTION WIDTH CV (test code = RDW) 15.1 % 11.5- 14.5 H RED CELL DISTRIBUTION WIDTH SD (test code = RDW-SD) 51.8 fL 37 .0-54.0 N PLATELET COUNT (test code = PLT) 298 x10 3/uL 150-400 N MEAN PLATELET VOLUME (test code = MPV) 10.6 fL 7.0-9.0 H NEUTROPHIL % (test code = NT%) 52.9 % 56.0-77.0 L IMMATURE GRANULOCYTE % (test code = IG%) 0.4 % 0.0-2.0 N LYMPHOCYTE % (test code = LY%) 33.9 % 14.0-32.0 H MONOCYTE % (test code = MO%) 8.4 % 4.8-9.0 N EOSINOPHIL % (test code = EO%) 4.3 % 0.3-3.7 H BASOPHIL % (test code = BA%) 0.1 % 0.0-2.0 N NUCLEATED RBC % (test code = NRBC%) 0.0 % 0-0 N NEUTROPHIL # (test code = NT#) 3.54 x10 3/uL 2.0-7.6 N IMMATURE GRANULOCYTE # (test code = IG#) 0.03 x10 3/uL 0.00-0.03 N LYMPHOCYTE # (test code = LY#) 2.27 x10 3/uL 1.0-3.8 N MONOCYTE # (test code = MO#) 0.56 x10 3/uL 0.1-0.8 N EOSINOPHIL # (test code = EO#) 0.29 x10 3/uL 0.0-0.2 H BASOPHIL # (test code = BA#) 0.01 x10 3/uL 0.0-0.2 N NUCLEATED RBC # (test code = NRBC#) 0.00 x10 3/uL 0.0-0.1 N MANUAL DIFF REQUIRED (test code = MDIFF) NO BASIC METABOLIC [id number] 05:17:00* Test Item Value Reference Range Interpretation Comments SODIUM (test code = NA) 141 mEq/L 134-147 N POTASSIUM (test code = K) 4.5 mEq/L 3.4-5.0 N CHLORIDE (test code = CL) 109 mEq/L 100-108 H CARBON DIOXIDE (test code = CO2) 26 mEq/L 21-33 N ANION GAP (test code = GAP) 11 0-20 N GLUCOSE (test code = GLU) 107 mg/dL 70-110 N BLOOD UREA NITROGEN (test code = BUN) 9 mg/dL 7-18 N GLOMERULAR FILTRATION RATE (test code = GFR) 107.6 95-105 H Units of measure = ml/min/1.73 m2 CREATININE (test code = CREAT) 0.7 mg/dL 0.6-1.3 N CALCIUM (test code = CA) 8.7 mg/dL 8.0-10.5 N [id number] 05:17:00* Test Item Value Reference Range Interpretation Comments MAGNESIUM (test code = MAG) 2.20 mg/dL 1.8-2.4 N CBC W/AUTO [id number] 11:30:00* Test Item Value Reference Range Interpretation Comments WHITE BLOOD CELL (test code = WBC) 7.99 x10 3/uL 4.5-11.0 N RED BLOOD CELL (test code = RBC) 2.84 x10 6/uL 3.54-5.02 L HEMOGLOBIN (test code = HGB) 9.2 g/dL 11.0-15.0 L HEMATOCRIT (test code = HCT) 27.8 % 33.0-45.0 L MEAN CELL VOLUME (test code = MCV) 97.9 fL 81.0-99.0 N MEAN CELL HGB (test code = MCH) 32.4 pg 27.0-33.0 N MEAN CELL HGB CONCETRATION (test code = MCHC) 33.1 g/dL 33.0-37. 0 N RED CELL DISTRIBUTION WIDTH CV (test code = RDW) 14.3 % 11.5- 14.5 N RED CELL DISTRIBUTION WIDTH SD (test code = RDW-SD) 50.0 fL 37 .0-54.0 N PLATELET COUNT (test code = PLT) 277 x10 3/uL 150-400 N MEAN PLATELET VOLUME (test code = MPV) 10.0 fL 7.0-9.0 H NEUTROPHIL % (test code = NT%) 66.9 % 56.0-77.0 N IMMATURE GRANULOCYTE % (test code = IG%) 0.4 % 0.0-2.0 N LYMPHOCYTE % (test code = LY%) 21.0 % 14.0-32.0 N MONOCYTE % (test code = MO%) 7.8 % 4.8-9.0 N EOSINOPHIL % (test code = EO%) 3.8 % 0.3-3.7 H BASOPHIL % (test code = BA%) 0.1 % 0.0-2.0 N NUCLEATED RBC % (test code = NRBC%) 0.0 % 0-0 N NEUTROPHIL # (test code = NT#) 5.35 x10 3/uL 2.0-7.6 N IMMATURE GRANULOCYTE # (test code = IG#) 0.03 x10 3/uL 0.00-0.03 N LYMPHOCYTE # (test code = LY#) 1.68 x10 3/uL 1.0-3.8 N MONOCYTE # (test code = MO#) 0.62 x10 3/uL 0.1-0.8 N EOSINOPHIL # (test code = EO#) 0.30 x10 3/uL 0.0-0.2 H BASOPHIL # (test code = BA#) 0.01 x10 3/uL 0.0-0.2 N NUCLEATED RBC # (test code = NRBC#) 0.00 x10 3/uL 0.0-0.1 N MANUAL DIFF REQUIRED (test code = MDIFF) NO - CT CHEST W/O [id number] 09:39:00 Name: EVA MG [facility] : 1970 Age/S: 48 / F [address] [place] [address] Unit #: [id number] Loc: [place] [address] Phys: TommyMontana PAPER MILL MANAGER Acct: [id number] Dis Date: Status: ADM IN PHONE #: [phone] Exam Date: 06/11/2019923 FAX #: [phone] Reason: sob EXAMS: CPT CODE: [id number] CT CHEST W/O CONTRAST 01198 Clinical Indication: Shortness of breath. Recent cardiac surgery. Comparison: 06/09/2019. TECHNIQUE: Contiguous axial CT images of the chest were acquired without the administration of IV contrast. Coronal and sagittal reconstructions were obtained. CT imaging performed at this location utilizes radiation dose optimization techniques which include one or more of the following: -Automated exposure control -Adjustment of the mA and/or kV according to patient size - Use of iterative reconstruction technique CT Radiation Dose DLP 329.9 mGy- cm FINDINGS: Left lung base patchy consolidative change that may reflect a combination of atelectasis and/or infiltrate. Right lower lobe atelectasis. Scattered right midlung groundglass densities. Trace pleural fluid bilaterally. No pneumothorax. Prior median sternotomy. Haziness of anterior mediastinal fat, likely postoperative. Tiny pericardial effusion. Coronary atherosclerosis. Heart size is generous. No mediastinal or hilar lymphadenopathy. No destructive osseous lesion. Partially imaged upper abdomen is unremarkable. IMPRESSION: 1. Bilateral lung base atelectasis with possible superimposed infiltrate, particularly in the left lung. Trace pleural fluid bilaterally. No pneumothorax. SL: [id number] at 0939 Reported and signed by: Efrain Loco M.D. PAGE 1 Signed Report (CONTINUED) Name: EVA SINGH [facility] : [birth year] Age/S: 48 / F [address] [place] [address] Unit #: [id number] Loc: [place] [address] Phys: SandersJohnMontana PAPER MILL MANAGER Acct: [id number] Dis Date: Status: ADM IN PHONE #: [phone] Exam Date: 06/11/2019923 FAX #: [phone] Reason: sob EXAMS: CPT CODE: [id number] CT CHEST W/O CONTRAST 12731 <Continued> CC: Montana Sanders PAPER MILL MANAGER; Lito Chanel MD Technologist:Manny Bernabe, RT(R) CTDI: DLP: Trnscb Date/Time: 06/11/2019 (938) [email or web address] Orig Print D/T: S: 06/11/2019 (0983) PAGE 2 Signed Report CBC W/AUTO [id number] 08:57:00* Test Item Value Reference Range Interpretation Comments WHITE BLOOD CELL (test code = WBC) 9.34 x10 3/uL 4.5-11.0 N RED BLOOD CELL (test code = RBC) 2.89 x10 6/uL 3.54-5.02 L HEMOGLOBIN (test code = HGB) 9.3 g/dL 11.0-15.0 L HEMATOCRIT (test code = HCT) 28.7 % 33.0-45.0 L MEAN CELL VOLUME (test code = MCV) 99.3 fL 81.0-99.0 H MEAN CELL HGB (test code = MCH) 32.2 pg 27.0-33.0 N MEAN CELL HGB CONCETRATION (test code = MCHC) 32.4 g/dL 33.0-37. 0 L RED CELL DISTRIBUTION WIDTH CV (test code = RDW) 14.6 % 11.5- 14.5 H RED CELL DISTRIBUTION WIDTH SD (test code = RDW-SD) 52.5 fL 37 .0-54.0 N PLATELET COUNT (test code = PLT) 281 x10 3/uL 150-400 N MEAN PLATELET VOLUME (test code = MPV) 10.5 fL 7.0-9.0 H NEUTROPHIL % (test code = NT%) 62.0 % 56.0-77.0 N IMMATURE GRANULOCYTE % (test code = IG%) 0.4 % 0.0-2.0 N LYMPHOCYTE % (test code = LY%) 26.9 % 14.0-32.0 N MONOCYTE % (test code = MO%) 7.1 % 4.8-9.0 N EOSINOPHIL % (test code = EO%) 3.5 % 0.3-3.7 N BASOPHIL % (test code = BA%) 0.1 % 0.0-2.0 N NUCLEATED RBC % (test code = NRBC%) 0.0 % 0-0 N NEUTROPHIL # (test code = NT#) 5.79 x10 3/uL 2.0-7.6 N IMMATURE GRANULOCYTE # (test code = IG#) 0.04 x10 3/uL 0.00-0.03 H LYMPHOCYTE # (test code = LY#) 2.51 x10 3/uL 1.0-3.8 N MONOCYTE # (test code = MO#) 0.66 x10 3/uL 0.1-0.8 N EOSINOPHIL # (test code = EO#) 0.33 x10 3/uL 0.0-0.2 H BASOPHIL # (test code = BA#) 0.01 x10 3/uL 0.0-0.2 N NUCLEATED RBC # (test code = NRBC#) 0.00 x10 3/uL 0.0-0.1 N MANUAL DIFF REQUIRED (test code = MDIFF) NO BASIC METABOLIC [id number] 08:43:00* Test Item Value Reference Range Interpretation Comments SODIUM (test code = NA) 139 mEq/L 134-147 N POTASSIUM (test code = K) 4.4 mEq/L 3.4-5.0 N CHLORIDE (test code = CL) 109 mEq/L 100-108 H CARBON DIOXIDE (test code = CO2) 23 mEq/L 21-33 N ANION GAP (test code = GAP) 11 0-20 N GLUCOSE (test code = GLU) 86 mg/dL 70-110 N BLOOD UREA NITROGEN (test code = BUN) 11 mg/dL 7-18 N GLOMERULAR FILTRATION RATE (test code = GFR) 107.6 95-105 H Units of measure = ml/min/1.73 m2 CREATININE (test code = CREAT) 0.7 mg/dL 0.6-1.3 N CALCIUM (test code = CA) 9.2 mg/dL 8.0-10.5 N [id number] 08:43:00* Test Item Value Reference Range Interpretation Comments MAGNESIUM (test code = MAG) 2.00 mg/dL 1.8-2.4 N - US THORACENTESIS [id number] 12:45:00 Name: EVA MG [facility] [place] : 1970 Age/S: 48 / F [address] [place] [address] Unit #: [id number] Loc: [place] [address] Phys: Janene Cameron PAPER MILL MANAGER Acct: [id number] Dis Date: Status: ADM IN PHONE #: [phone] Exam Date: 06/09/2019 1222 FAX #: [phone] Reason: right pleural effusion EXAMS: CPT CODE: [id number] US THORACENTESIS W/IMAG 12002 PROCEDURE: Ultrasound guided left thoracentesis. INDICATION: Bilateral pleural effusions. COMPARISON: Same day chest radiograph. PROCEDURE: The procedure, risks, benefits and alternatives were discussed. Informed consent was obtained. Timeout was performed prior to the procedure. Ultrasound was used to evaluate potential access sites. Preliminary ultrasound demonstrates small right and small to moderate left pleural effusion. The posterior lower chest was sterilely prepped and draped. 1% lidocaine was used for local anesthesia. Using ultrasound guidance, 5- Armenian sheath needle was advanced into the pleural space using trocar technique. Pleural fluid was aspirated after removal of the needle. The s neeraj was removed, and pressure was applied at the puncture site with adeq uate hemostasis. Sterile dressing was applied. There were no evident compl ications and the patient had no complaints. FINDINGS: Total volume of 500 of blood tinged pleural fluid was removed. IMPRES FRANSISCO: 1. Technically successful ultrasound guided left thoracentesis. at 1246 Reported and signed by: Efrain Loco M.D. CC: Lito Chanel MD; Janene Klein NP Technologist: Ana Mcmahon Trnscb Date/Time: 06/09/2019 (2414) [id number] Orig Print D/T: S: 06/09/2019 (7308) Probe: PAGE 1 Signed Report - XR CHEST 1 V 2019-06-09 12:40:00 FAX: Lito Dela Cruz I [phone] [place]: St: ADM FAX: Yoko Lieberman PA-C Name: EVA MG [facility] : 1970 Age/S: 48/F [address] [place] [address] Bl Unit #: [id number] Loc: G.3347 [place] [address] Phys: Yoko Lieberman PA-C Acct: [id number] Dis Date: Status: ADM IN PHONE #: [phone] Exam Date: 06/09/2019 1243 FAX #: [phone] Reason: POST LEFT THORACENTESIS UNDER ULTRASOUND GUIDAN EXAMS: CPT CODE: [id number] XR CHEST 1 V 26010 Chest single view 06/09/2019 HISTORY: Left thoracentesis. Comparison is made to 06/09/2019 0442 hours FINDINGS: Left pleural effusion has resolved from prior study. There is no pneumothorax. Small right pleural effusion is unchanged. Bibasilar atelectasis/infiltrates are unchanged. Cardiomegaly is stable. No vascular congestion is present. Midline sternotomy wires are unchanged. IMPRESSION: 1. Resolution of left pleural effusion after thoracentesis. 2. No pneumothorax. 3. Stable right pleural effusion. Stable bibasilar atelectasis/infiltrates. SL: [id number] at 1240 Reported and signed by: Michael Leiva M.D. 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 HISTORY: Cardiac surgery postop. Comparison is made to a prior study dated 06/08/2019. The heart is enlarged. The cardiomediastinal shadow is stable. Bilateral pleural effusions persists with consolidation or volume loss in both lung bases. The aeration of the right lung base has shown slight interval improvement. The upper lung martel remain clear. The pulmonary vasculature is normal in caliber. IMPRESSION: 1. Bilateral pleural effusions with consolidation or volume loss in both lung bases. The aeration of the right lung base has shown improvement when compared the prior study of 06/08/2019. 2. Cardiomegaly without r adiographic evidence of acute congestive heart failure. SL: 131 at 0613 Reported and signed by: Edison Powell M.D. CC: Lito Chanel MD; Janene Cameron NP Technologist: Josselyn Delgado RT(R); RT Tan(R) [facility] Date/Time/By: 06/09/2019 (0613) : By: Shanice Orig Print D/T: S: 06/09/2019 (0650) PAGE 1 Signed Report BASIC METABOLIC [id number] 05:17:00* Test Item Value Reference Range Interpretation Comments SODIUM (test code = NA) 141 mEq/L 134-147 N POTASSIUM (test code = K) 4.0 mEq/L 3.4-5.0 N CHLORIDE (test code = CL) 110 mEq/L 100-108 H CARBON DIOXIDE (test code = CO2) 25 mEq/L 21-33 N ANION GAP (test code = GAP) 10 0-20 N GLUCOSE (test code = GLU) 104 mg/dL 70-110 N BLOOD UREA NITROGEN (test code = BUN) 12 mg/dL 7-18 N GLOMERULAR FILTRATION RATE (test code = GFR) 107.6 95-105 H Units of measure = ml/min/1.73 m2 CREATININE (test code = CREAT) 0.7 mg/dL 0.6-1.3 N CALCIUM (test code = CA) 9.0 mg/dL 8.0-10.5 N [id number] 05:17:00* Test Item Value Reference Range Interpretation Comments MAGNESIUM (test code = MAG) 2.20 mg/dL 1.8-2.4 N CBC W/AUTO [id number] 04:58:00* Test Item Value Reference Range Interpretation Comments WHITE BLOOD CELL (test code = WBC) 8.68 x10 3/uL 4.5-11.0 N RED BLOOD CELL (test code = RBC) 2.78 x10 6/uL 3.54-5.02 L HEMOGLOBIN (test code = HGB) 9.1 g/dL 11.0-15.0 L HEMATOCRIT (test code = HCT) 27.3 % 33.0-45.0 L MEAN CELL VOLUME (test code = MCV) 98.2 fL 81.0-99.0 N MEAN CELL HGB (test code = MCH) 32.7 pg 27.0-33.0 N MEAN CELL HGB CONCETRATION (test code = MCHC) 33.3 g/dL 33.0-37. 0 N RED CELL DISTRIBUTION WIDTH CV (test code = RDW) 14.6 % 11.5- 14.5 H RED CELL DISTRIBUTION WIDTH SD (test code = RDW-SD) 52.5 fL 37 .0-54.0 N PLATELET COUNT (test code = PLT) 229 x10 3/uL 150-400 N MEAN PLATELET VOLUME (test code = MPV) 11.4 fL 7.0-9.0 H NEUTROPHIL % (test code = NT%) 58.7 % 56.0-77.0 N IMMATURE GRANULOCYTE % (test code = IG%) 0.6 % 0.0-2.0 N LYMPHOCYTE % (test code = LY%) 28.3 % 14.0-32.0 N MONOCYTE % (test code = MO%) 9.4 % 4.8-9.0 H EOSINOPHIL % (test code = EO%) 2.8 % 0.3-3.7 N BASOPHIL % (test code = BA%) 0.2 % 0.0-2.0 N NUCLEATED RBC % (test code = NRBC%) 0.0 % 0-0 N NEUTROPHIL # (test code = NT#) 5.09 x10 3/uL 2.0-7.6 N IMMATURE GRANULOCYTE # (test code = IG#) 0.05 x10 3/uL 0.00-0.03 H LYMPHOCYTE # (test code = LY#) 2.46 x10 3/uL 1.0-3.8 N MONOCYTE # (test code = MO#) 0.82 x10 3/uL 0.1-0.8 H EOSINOPHIL # (test code = EO#) 0.24 x10 3/uL 0.0-0.2 H BASOPHIL # (test code = BA#) 0.02 x10 3/uL 0.0-0.2 N NUCLEATED RBC # (test code = NRBC#) 0.00 x10 3/uL 0.0-0.1 N MANUAL DIFF REQUIRED (test code = MDIFF) NO CBC W/AUTO [id number] 14:05:00* Test Item Value Reference Range Interpretation Comments WHITE BLOOD CELL (test code = WBC) 8.74 x10 3/uL 4.5-11.0 N RED BLOOD CELL (test code = RBC) 2.79 x10 6/uL 3.54-5.02 L HEMOGLOBIN (test code = HGB) 9.1 g/dL 11.0-15.0 L HEMATOCRIT (test code = HCT) 27.3 % 33.0-45.0 L MEAN CELL VOLUME (test code = MCV) 97.8 fL 81.0-99.0 N MEAN CELL HGB (test code = MCH) 32.6 pg 27.0-33.0 N MEAN CELL HGB CONCETRATION (test code = MCHC) 33.3 g/dL 33.0-37. 0 N RED CELL DISTRIBUTION WIDTH CV (test code = RDW) 15.4 % 11.5- 14.5 H RED CELL DISTRIBUTION WIDTH SD (test code = RDW-SD) 55.2 fL 37 .0-54.0 H PLATELET COUNT (test code = PLT) 189 x10 3/uL 150-400 N MEAN PLATELET VOLUME (test code = MPV) 11.0 fL 7.0-9.0 H NEUTROPHIL % (test code = NT%) 68.4 % 56.0-77.0 N IMMATURE GRANULOCYTE % (test code = IG%) 0.2 % 0.0-2.0 N LYMPHOCYTE % (test code = LY%) 20.9 % 14.0-32.0 N MONOCYTE % (test code = MO%) 7.9 % 4.8-9.0 N EOSINOPHIL % (test code = EO%) 2.5 % 0.3-3.7 N BASOPHIL % (test code = BA%) 0.1 % 0.0-2.0 N NUCLEATED RBC % (test code = NRBC%) 0.0 % 0-0 N NEUTROPHIL # (test code = NT#) 5.97 x10 3/uL 2.0-7.6 N IMMATURE GRANULOCYTE # (test code = IG#) 0.02 x10 3/uL 0.00-0.03 N LYMPHOCYTE # (test code = LY#) 1.83 x10 3/uL 1.0-3.8 N MONOCYTE # (test code = MO#) 0.69 x10 3/uL 0.1-0.8 N EOSINOPHIL # (test code = EO#) 0.22 x10 3/uL 0.0-0.2 H BASOPHIL # (test code = BA#) 0.01 x10 3/uL 0.0-0.2 N NUCLEATED RBC # (test code = NRBC#) 0.00 x10 3/uL 0.0-0.1 N MANUAL DIFF REQUIRED (test code = MDIFF) NO CBC W/AUTO [id number] 09:42:00* Test Item Value Reference Range Interpretation Comments WHITE BLOOD CELL (test code = WBC) 8.74 x10 3/uL 4.5-11.0 N RED BLOOD CELL (test code = RBC) 2.79 x10 6/uL 3.54-5.02 L HEMOGLOBIN (test code = HGB) 9.1 g/dL 11.0-15.0 L HEMATOCRIT (test code = HCT) 27.3 % 33.0-45.0 L MEAN CELL VOLUME (test code = MCV) 97.8 fL 81.0-99.0 N MEAN CELL HGB (test code = MCH) 32.6 pg 27.0-33.0 N MEAN CELL HGB CONCETRATION (test code = MCHC) 33.3 g/dL 33.0-37. 0 N RED CELL DISTRIBUTION WIDTH CV (test code = RDW) 15.4 % 11.5- 14.5 H RED CELL DISTRIBUTION WIDTH SD (test code = RDW-SD) 55.2 fL 37 .0-54.0 H PLATELET COUNT (test code = PLT) x10 3/uL 150-400 N MEAN PLATELET VOLUME (test code = MPV) 11.0 fL 7.0-9.0 H NEUTROPHIL % (test code = NT%) 68.4 % 56.0-77.0 N IMMATURE GRANULOCYTE % (test code = IG%) 0.2 % 0.0-2.0 N LYMPHOCYTE % (test code = LY%) 20.9 % 14.0-32.0 N MONOCYTE % (test code = MO%) 7.9 % 4.8-9.0 N EOSINOPHIL % (test code = EO%) 2.5 % 0.3-3.7 N BASOPHIL % (test code = BA%) 0.1 % 0.0-2.0 N NUCLEATED RBC % (test code = NRBC%) 0.0 % 0-0 N NEUTROPHIL # (test code = NT#) 5.97 x10 3/uL 2.0-7.6 N IMMATURE GRANULOCYTE # (test code = IG#) 0.02 x10 3/uL 0.00-0.03 N LYMPHOCYTE # (test code = LY#) 1.83 x10 3/uL 1.0-3.8 N MONOCYTE # (test code = MO#) 0.69 x10 3/uL 0.1-0.8 N EOSINOPHIL # (test code = EO#) 0.22 x10 3/uL 0.0-0.2 H BASOPHIL # (test code = BA#) 0.01 x10 3/uL 0.0-0.2 N NUCLEATED RBC # (test code = NRBC#) 0.00 x10 3/uL 0.0-0.1 N MANUAL DIFF REQUIRED (test code = MDIFF) NO - XR CHEST 1 [id number] 09:00:00 FAX: Lito Dela Cruz I [phone] [place]: St: [facility] FAX: Celeste Cameron [phone] Name: EVA MG [facility] : 1970 Age/S: 48/F [address] [place] [address] Unit #: [id number] Loc: G.3347 [place] [address] 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 More focal areas of infiltrate are identified in the left lower lobe, similar to prior exams dating back to 06/06/2019. No evidence of pneumothorax. The upper lobes are clear. The cardiac silhouette is moderately enlarged. IMPRESSION: 1. Persistent hazy opacities at each lung base likely representing a combination of basilar infiltrate/atelectasis and pleural effusions. 2. Persistent cardiomegaly. 3. Little change compared to 06/06/2019 and 06/07/2019. 4. No new abnormalities. SL:01 at 0900 Reported and signed by: Edmond Herman M.D. CC: Lito Chanel MD; Janene Cameron NP Technologist: Mare Bustamante, RT(R); Elizabeth Kendrick, RT(R) Trnscrd Date/Time/By: 06/08/2019 (0900) : By: [facility].VGE/[facility].VGE Orig Print D/T: S: 06/08/2019 (0903) PAGE 1 Signed Report BASIC METABOLIC [id number] 08:48:00* Test Item Value Reference Range Interpretation Comments SODIUM (test code = NA) 142 mEq/L 134-147 N POTASSIUM (test code = K) 4.0 mEq/L 3.4-5.0 N CHLORIDE (test code = CL) 113 mEq/L 100-108 H CARBON DIOXIDE (test code = CO2) 20 mEq/L 21-33 L ANION GAP (test code = GAP) 13 0-20 N GLUCOSE (test code = GLU) 106 mg/dL 70-110 N BLOOD UREA NITROGEN (test code = BUN) 11 mg/dL 7-18 GLOMERULAR FILTRATION RATE (test code = GFR) 92.2 95-105 L Units of measure = ml/min/1.73 m2 CREATININE (test code = CREAT) 0.8 mg/dL 0.6-1.3 N CALCIUM (test code = CA) 8.6 mg/dL 8.0-10.5 N [id number] 08:48:00* Test Item Value Reference Range Interpretation Comments MAGNESIUM (test code = MAG) 2.20 mg/dL 1.8-2.4 - XR CHEST 1 [id number] 10:31:00 FAX: Lito Dela Cruz I [phone] [place]: St: ADM FAX: Celeste Cameron [phone] Name: EVA MG [facility] [place] : 1970 Age/S: 48/F [address] [place] [address] Unit #: [id number] Loc: Osmin3347 [place] [address] 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 COMPARISON EXAM(S): Back to 06/03/2019. FINDINGS: This single portable view was obtained at 0619 hours on 06/07/2019 and shows shallow inspiration with persistent, bibasilar pulmonary infiltrates obscuring each hemidiaphragm. Moderate cardiomegaly is present. No evidence of pneumothorax. The upper lobes appear relatively clear. IMPRESSION: 1. Shallow inspiration with bibasilar pulmonary infiltrates and probable small pleural effusions. Atelectasis and pneumo carla are both possible. 2. Moderate enlargement of the cardiac si lhouette. The cardiac silhouette appears to be larger than on the initia l postoperative examination of 06/03/2019 and the configuration raises t he possibility of pericardial fluid. SL:01 at 1031 Reported and signed by: Edmond Herman M.D. CC: Lito Chanel MD; Janene Cameron NP Technologist: RT Srinivasan(Delroy) Trnscrd Date/Time/By: 06/07/2019 (1 031) : By: Nieves/Maxine.VENUS Orig Print D/T: S: 06/07/2019 (4579) PAGE 1 Signed Report CBC W/AUTO [id number] 07:54:00* Test Item Value Reference Range Interpretation Comments WHITE BLOOD CELL (test code = WBC) 8.46 x10 3/uL 4.5-11.0 N RED BLOOD CELL (test code = RBC) 2.89 x10 6/uL 3.54-5.02 L HEMOGLOBIN (test code = HGB) 9.5 g/dL 11.0-15.0 L HEMATOCRIT (test code = HCT) 28.7 % 33.0-45.0 L MEAN CELL VOLUME (test code = MCV) 99.3 fL 81.0-99.0 H MEAN CELL HGB (test code = MCH) 32.9 pg 27.0-33.0 N MEAN CELL HGB CONCETRATION (test code = MCHC) 33.1 g/dL 33.0-37. 0 N RED CELL DISTRIBUTION WIDTH CV (test code = RDW) 16.7 % 11.5- 14.5 H RED CELL DISTRIBUTION WIDTH SD (test code = RDW-SD) 61.0 fL 37 .0-54.0 H PLATELET COUNT (test code = PLT) 189 x10 3/uL 150-400 N MEAN PLATELET VOLUME (test code = MPV) 11.2 fL 7.0-9.0 H NEUTROPHIL % (test code = NT%) 65.0 % 56.0-77.0 N IMMATURE GRANULOCYTE % (test code = IG%) 0.5 % 0.0-2.0 N LYMPHOCYTE % (test code = LY%) 25.2 % 14.0-32.0 N MONOCYTE % (test code = MO%) 7.7 % 4.8-9.0 N EOSINOPHIL % (test code = EO%) 1.5 % 0.3-3.7 N BASOPHIL % (test code = BA%) 0.1 % 0.0-2.0 N NUCLEATED RBC % (test code = NRBC%) 0.0 % 0-0 N NEUTROPHIL # (test code = NT#) 5.50 x10 3/uL 2.0-7.6 N IMMATURE GRANULOCYTE # (test code = IG#) 0.04 x10 3/uL 0.00-0.03 H LYMPHOCYTE # (test code = LY#) 2.13 x10 3/uL 1.0-3.8 N MONOCYTE # (test code = MO#) 0.65 x10 3/uL 0.1-0.8 N EOSINOPHIL # (test code = EO#) 0.13 x10 3/uL 0.0-0.2 N BASOPHIL # (test code = BA#) 0.01 x10 3/uL 0.0-0.2 N NUCLEATED RBC # (test code = NRBC#) 0.00 x10 3/uL 0.0-0.1 N MANUAL DIFF REQUIRED (test code = MDIFF) NO BASIC METABOLIC [id number] 07:38:00* Test Item Value Reference Range Interpretation Comments SODIUM (test code = NA) 143 mEq/L 134-147 N POTASSIUM (test code = K) 4.5 mEq/L 3.4-5.0 N CHLORIDE (test code = CL) 113 mEq/L 100-108 H CARBON DIOXIDE (test code = CO2) 25 mEq/L 21-33 N ANION GAP (test code = GAP) 10 0-20 N GLUCOSE (test code = GLU) 105 mg/dL 70-110 N BLOOD UREA NITROGEN (test code = BUN) 18 mg/dL 7-18 N GLOMERULAR FILTRATION RATE (test code = GFR) 92.2 95-105 L Units of measure = ml/min/1.73 m2 CREATININE (test code = CREAT) 0.8 mg/dL 0.6-1.3 N CALCIUM (test code = CA) 8.6 mg/dL 8.0-10.5 N [id number] 07:38:00* Test Item Value Reference Range Interpretation Comments MAGNESIUM (test code = MAG) 2.60 mg/dL 1.8-2.4 H - XR CHEST 1 [id number] 07:45:00 FAX: Lito Dela Cruz I [phone] [place]: St: [facility] FAX: Celeste Cameron [phone] Name: EVA MG [facility] : 1970 Age/S: 48/F [address] [place] [address] Unit #: [id number] Loc: [place] [place] [address] Phys: Janene Cameron NP Acct: [id number] Dis Date: Status: ADM IN PHONE #: [phone] Exam Date: 06/06/2019 0608 FAX #: [phone] Reason: Cardiac Surgery Post Op EXAMS: CPT CODE: [id number] XR CHEST 1 V 08089 CLINICAL HISTORY:Cardiac Surgery Post Op COMPARISON:June 05, 2019 at 0418. Frontal film of the chest performed at 0421 on June 06, 2019 demonstrates sternotomy sutures and monitor leads in place. Cyst noted chest tube in left hemithorax has been removed. Heart size is stable and bibasilar opacities are present with slightly decreased aeration of both lungs compared to previous examination. IMPRESSION: 1. Interval removal of left-sided chest tube. 2. Decreased aeration of both lungs compared to previous examination with bibasilar opacities present. at 0745 Reported and signed by: Abelardo Salinas M.D. CC: Lito Chanel MD; Janene Gtz NP Technologist: Mireya Isaac, RT(R); Elizabeth Kendrick, RT(R) Trnscrd Date/Time/By: 06/06/2019 (0745) : By: Carolee Orig Print D/T: S: 06/06/2019 (0748) PAGE 1 Signed Report BASIC METABOLIC PANEL 2019-06-06 03:49:00* Test Item Value Reference Range Interpretation Comments SODIUM (test code = NA) 143 mEq/L 134-147 N POTASSIUM (test code = K) 4.2 mEq/L 3.4-5.0 N CHLORIDE (test code = CL) 114 mEq/L 100-108 H CARBON DIOXIDE (test code = CO2) 24 mEq/L 21-33 N ANION GAP (test code = GAP) 9 0-20 N GLUCOSE (test code = GLU) 139 mg/dL 70-110 H BLOOD UREA NITROGEN (test code = BUN) 23 mg/dL 7-18 H GLOMERULAR FILTRATION RATE (test code = GFR) 80.5 95-105 L Units of measure = ml/min/1.73 m2 CREATININE (test code = CREAT) 0.9 mg/dL 0.6-1.3 N CALCIUM (test code = CA) 8.1 mg/dL 8.0-10.5 N COMMENTS: POD #1HEPATIC FUNCTION [id number] 03:49:00* Test Item Value Reference Range Interpretation Comments TOTAL PROTEIN (test code = PROT) 6.8 g/dL 6.4-8.2 N ALBUMIN (test code = ALB) 3.50 g/dL 3.4-5.0 N BILIRUBIN TOTAL (test code = BILT) 0.4 MG/DL <1.5 BILIRUBIN DIRECT (test code = BILD) 0.20 MG/DL 0.0-0.30 N BILIRUBIN INDIRECT (test code = BILIND) 0.20 MG/DL SGOT/AST (test code = AST) 27 IUnit/L 15-37 N SGPT/ALT (test code = ALT) 15 IUnit/L 15-65 N ALKALINE PHOSPHATASE TOTAL (test code = ALKP) 27 IUnit/L 20-125 N COMMENTS: POD #[id number] 03:49:00* Test Item Value Reference Range Interpretation Comments MAGNESIUM (test code = MAG) 2.70 mg/dL 1.8-2.4 H COMMENTS: POD #1CBC W/AUTO [id number] 03:31:00* Test Item Value Reference Range Interpretation Comments WHITE BLOOD CELL (test code = WBC) 10.05 x10 3/uL 4.5-11.0 N RED BLOOD CELL (test code = RBC) 1.99 x10 6/uL 3.54-5.02 L HEMOGLOBIN (test code = HGB) 6.7 g/dL 11.0-15.0 L HEMATOCRIT (test code = HCT) 20.4 % 33.0-45.0 L MEAN CELL VOLUME (test code = MCV) 102.5 fL 81.0-99.0 H MEAN CELL HGB (test code = MCH) 33.7 pg 27.0-33.0 H MEAN CELL HGB CONCETRATION (test code = MCHC) 32.8 g/dL 33.0-37. 0 L RED CELL DISTRIBUTION WIDTH CV (test code = RDW) 12.6 % 11.5- 14.5 N RED CELL DISTRIBUTION WIDTH SD (test code = RDW-SD) 46.6 fL 37 .0-54.0 N PLATELET COUNT (test code = PLT) 128 x10 3/uL 150-400 L MEAN PLATELET VOLUME (test code = MPV) 10.1 fL 7.0-9.0 H NEUTROPHIL % (test code = NT%) 70.6 % 56.0-77.0 N IMMATURE GRANULOCYTE % (test code = IG%) 0.6 % 0.0-2.0 N LYMPHOCYTE % (test code = LY%) 17.7 % 14.0-32.0 N MONOCYTE % (test code = MO%) 10.5 % 4.8-9.0 H EOSINOPHIL % (test code = EO%) 0.5 % 0.3-3.7 N BASOPHIL % (test code = BA%) 0.1 % 0.0-2.0 N NUCLEATED RBC % (test code = NRBC%) 0.0 % 0-0 N NEUTROPHIL # (test code = NT#) 7.09 x10 3/uL 2.0-7.6 N IMMATURE GRANULOCYTE # (test code = IG#) 0.06 x10 3/uL 0.00-0.03 H LYMPHOCYTE # (test code = LY#) 1.78 x10 3/uL 1.0-3.8 N MONOCYTE # (test code = MO#) 1.06 x10 3/uL 0.1-0.8 H EOSINOPHIL # (test code = EO#) 0.05 x10 3/uL 0.0-0.2 N BASOPHIL # (test code = BA#) 0.01 x10 3/uL 0.0-0.2 N NUCLEATED RBC # (test code = NRBC#) 0.00 x10 3/uL 0.0-0.1 N MANUAL DIFF REQUIRED (test code = MDIFF) NO ARTERIAL BLOOD [id number] 13:16:00* Test Item Value Reference Range Interpretation Comments ARTERIAL BLOOD GAS PH (test code = PHA) 7.380 7.35-7.45 N ARTERIAL BLOOD GAS PCO2 (test code = PCO2A) 36.1 mmHg 35-45 N ARTERIAL BLOOD GAS PO2 (test code = PO2A) 80 mmHg 80-100 N BICARBONATE TOTAL HCO3 (test code = HCO3) 21.6 mmol/L 22.0-26.0 L BASE EXCESS (test code = KAYLAN) -4.0 mmol/L -4-4 N ABG O2 SATURATION (test code = SATA) 96 % 90-100 N ABG DELIVERY (test code = DELORES) Cannula ABG TEMPERATURE (test code = TEMPA) 97.0 F ABG SITE (test code = SITEA) R Rad TCO2 ARTERIAL (test code = TCO2A) 23 - XR CHEST 1 [id number] 08:13:00 FAX: Lito Dela Cruz I [phone] [place]: St: [facility] FAX: Celeste Cameron [phone] Name: EVA MG [facility] : 1970 Age/S: 48/F [address] [place] [address] Unit #: [id number] Loc: G.2204 [place] [address] 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 Comparison: Chest radiograph frontal view on 06/04/2019. Technique: Chest radiograph frontal view. Findings: Unchanged two mediastinal drains. The cardiomediastinal silhouette is moderately enlarged. Interval increase in bibasilar opacities which may represent atelectasis, pleural effusion, and/or consolidation. There is pulmonary venous congestion. Multiple median sternotomy wires and surgical clips suggest prior CABG. No pneumothorax. No acute osseous abnormality. I mpression: 1. Unchanged two mediastinal drains. 2. Moderate ca rdiomegaly with pulmonary venous congestion. 3. Interval increase in bi basilar opacities which may represent atelectasis, pleural effusion, and /or consolidation. SL: [id number] at 081 3 Reported and signed by: Isaac Lopez M.D. CC: Lito Chanel MD; Janene Cameron PAPER MILL MANAGER Technologist: Aldair Aguilar, RT(R); Dilia Gruber, RT(R) Trnscrd Date/Time/By: 06/05/20 19 (812) : By: [email or web address] Orig Print D/T: S: 06/05/2019 (815) PAGE 1 Signed Report BASIC METABOLIC [id number] 03:31:00* Test Item Value Reference Range Interpretation Comments SODIUM (test code = NA) 143 mEq/L 134-147 N POTASSIUM (test code = K) 4.1 mEq/L 3.4-5.0 N CHLORIDE (test code = CL) 114 mEq/L 100-108 H CARBON DIOXIDE (test code = CO2) 22 mEq/L 21-33 N ANION GAP (test code = GAP) 11 0-20 N GLUCOSE (test code = GLU) 132 mg/dL 70-110 H BLOOD UREA NITROGEN (test code = BUN) 21 mg/dL 7-18 H GLOMERULAR FILTRATION RATE (test code = GFR) 80.5 95-105 L Units of measure = ml/min/1.73 m2 CREATININE (test code = CREAT) 0.9 mg/dL 0.6-1.3 N CALCIUM (test code = CA) 8.2 mg/dL 8.0-10.5 N COMMENTS: POD #1HEPATIC FUNCTION [id number] 03:31:00* Test Item Value Reference Range Interpretation Comments TOTAL PROTEIN (test code = PROT) 6.9 g/dL 6.4-8.2 N ALBUMIN (test code = ALB) 3.70 g/dL 3.4-5.0 N BILIRUBIN TOTAL (test code = BILT) 0.6 MG/DL <1.5 BILIRUBIN DIRECT (test code = BILD) 0.20 MG/DL 0.0-0.30 BILIRUBIN INDIRECT (test code = BILIND) 0.40 MG/DL SGOT/AST (test code = AST) 38 IUnit/L 15-37 H SGPT/ALT (test code = ALT) 17 IUnit/L 15-65 N ALKALINE PHOSPHATASE TOTAL (test code = ALKP) 28 IUnit/L 20-125 N COMMENTS: POD #[id number] 03:31:00* Test Item Value Reference Range Interpretation Comments MAGNESIUM (test code = MAG) 2.40 mg/dL 1.8-2.4 N COMMENTS: POD #1CBC W/AUTO [id number] 03:14:00* Test Item Value Reference Range Interpretation Comments WHITE BLOOD CELL (test code = WBC) 13.50 x10 3/uL 4.5-11.0 H RED BLOOD CELL (test code = RBC) 2.30 x10 6/uL 3.54-5.02 L HEMOGLOBIN (test code = HGB) 7.9 g/dL 11.0-15.0 L HEMATOCRIT (test code = HCT) 23.4 % 33.0-45.0 L MEAN CELL VOLUME (test code = MCV) 101.7 fL 81.0-99.0 H MEAN CELL HGB (test code = MCH) 34.3 pg 27.0-33.0 H MEAN CELL HGB CONCETRATION (test code = MCHC) 33.8 g/dL 33.0-37. 0 N RED CELL DISTRIBUTION WIDTH CV (test code = RDW) 12.6 % 11.5- 14.5 N RED CELL DISTRIBUTION WIDTH SD (test code = RDW-SD) 46.5 fL 37 .0-54.0 N PLATELET COUNT (test code = PLT) 148 x10 3/uL 150-400 L MEAN PLATELET VOLUME (test code = MPV) 10.2 fL 7.0-9.0 H NEUTROPHIL % (test code = NT%) 73.8 % 56.0-77.0 N IMMATURE GRANULOCYTE % (test code = IG%) 0.9 % 0.0-2.0 N LYMPHOCYTE % (test code = LY%) 13.6 % 14.0-32.0 L MONOCYTE % (test code = MO%) 11.6 % 4.8-9.0 H EOSINOPHIL % (test code = EO%) 0.1 % 0.3-3.7 L BASOPHIL % (test code = BA%) 0.0 % 0.0-2.0 N NUCLEATED RBC % (test code = NRBC%) 0.0 % 0-0 N NEUTROPHIL # (test code = NT#) 9.98 x10 3/uL 2.0-7.6 H IMMATURE GRANULOCYTE # (test code = IG#) 0.12 x10 3/uL 0.00-0.03 H LYMPHOCYTE # (test code = LY#) 1.83 x10 3/uL 1.0-3.8 N MONOCYTE # (test code = MO#) 1.56 x10 3/uL 0.1-0.8 H EOSINOPHIL # (test code = EO#) 0.01 x10 3/uL 0.0-0.2 N BASOPHIL # (test code = BA#) 0.00 x10 3/uL 0.0-0.2 N NUCLEATED RBC # (test code = NRBC#) 0.00 x10 3/uL 0.0-0.1 N MANUAL DIFF REQUIRED (test code = MDIFF) NO COMMENTS: Daily while on Heparin- XR CHEST 1 [id number] 07:23:00 FAX: Lito Dela Cruz I [phone] [place]: St: [facility] FAX: Celeste Murray [phone] Name: EVA MG [facility] : 1970 Age/S: 48/F [address] [place] [address] Unit #: [id number] Loc: [place] [address] Phys: Janene Cameron 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 Left-sided chest tube again seen. HEART AND MEDIASTINUM: Normal size heart. 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 LINES: Interval extubation. Otherwise , The life support lines and tubes appear unchanged. OSSEOU S STRUCTURES: No fracture, dislocation, or suspicious focal osseous lesion . OTHER: None. IMPRESSION: No acute abnormality as above discussed. SL: [id number] Electronically Signed by Sergio Pretty on 04/2019 at 0784 Reported and signed by: Gabriel Page CC: Lito Chanel MD; Janene Cameron NP Technologist: RT Cholo(Delroy) Trnscrd Date/Time/By: (0723) : By: [email or web address] Orig Print D/T: S: 06/04/2019 (0774) PAGE 1 Signed Report [id number] 06:25:00* Test Item Value Reference Range Interpretation Comments GLUBED (test code = GLUBED) 122 MG/DL 70-110 H Performed by certified ski lift operator at [facility] COAGULATION TIME [id number] 05:17:00* Test Item Value Reference Range Interpretation Comments COAGULATION TIME ACTIVATED (test code = ACT) 104 SECONDS 105-167 L COAGULATION TIME [id number] 05:17:00* Test Item Value Reference Range Interpretation Comments COAGULATION TIME ACTIVATED (test code = ACT) 613 SECONDS 105-167 H COAGULATION TIME [id number] 05:17:00* Test Item Value Reference Range Interpretation Comments COAGULATION TIME ACTIVATED (test code = ACT) 422 SECONDS 105-167 H [id number] 05:16:00* Test Item Value Reference Range Interpretation Comments GLUBED (test code = GLUBED) 144 MG/DL 70-110 H Performed by certified ski lift operator at [facility] [id number] 05:16:00* Test Item Value Reference Range Interpretation Comments GLUBED (test code = GLUBED) 115 MG/DL 70-110 H Performed by certified ski lift operator at [facility] COAGULATION TIME [id number] 05:16:00* Test Item Value Reference Range Interpretation Comments COAGULATION TIME ACTIVATED (test code = ACT) 173 SECONDS 105-167 H BASIC METABOLIC [id number] 04:07:00* Test Item Value Reference Range Interpretation Comments SODIUM (test code = NA) 143 mEq/L 134-147 N POTASSIUM (test code = K) 4.2 mEq/L 3.4-5.0 N CHLORIDE (test code = CL) 115 mEq/L 100-108 H CARBON DIOXIDE (test code = CO2) 21 mEq/L 21-33 N ANION GAP (test code = GAP) 11 0-20 N GLUCOSE (test code = GLU) 144 mg/dL 70-110 H BLOOD UREA NITROGEN (test code = BUN) 20 mg/dL 7-18 H GLOMERULAR FILTRATION RATE (test code = GFR) 80.5 95-105 L Units of measure = ml/min/1.73 m2 CREATININE (test code = CREAT) 0.9 mg/dL 0.6-1.3 N CALCIUM (test code = CA) 8.2 mg/dL 8.0-10.5 N COMMENTS: POD #1HEPATIC FUNCTION [id number] 04:07:00* Test Item Value Reference Range Interpretation Comments TOTAL PROTEIN (test code = PROT) 7.1 g/dL 6.4-8.2 ALBUMIN (test code = ALB) 3.70 g/dL 3.4-5.0 N BILIRUBIN TOTAL (test code = BILT) 0.4 MG/DL <1.5 N BILIRUBIN DIRECT (test code = BILD) 0.10 MG/DL 0.0-0.30 N BILIRUBIN INDIRECT (test code = BILIND) 0.30 MG/DL SGOT/AST (test code = AST) 34 IUnit/L 15-37 SGPT/ALT (test code = ALT) 21 IUnit/L 15-65 N ALKALINE PHOSPHATASE TOTAL (test code = ALKP) 34 IUnit/L 20-125 N COMMENTS: POD #[id number] 04:07:00* Test Item Value Reference Range Interpretation Comments MAGNESIUM (test code = MAG) 2.30 mg/dL 1.8-2.4 COMMENTS: POD #1CBC W/AUTO [id number] 03:46:00* Test Item Value Reference Range Interpretation Comments WHITE BLOOD CELL (test code = WBC) 12.98 x10 3/uL 4.5-11.0 H RED BLOOD CELL (test code = RBC) 2.68 x10 6/uL 3.54-5.02 L HEMOGLOBIN (test code = HGB) 9.0 g/dL 11.0-15.0 L HEMATOCRIT (test code = HCT) 27.1 % 33.0-45.0 L MEAN CELL VOLUME (test code = MCV) 101.1 fL 81.0-99.0 H MEAN CELL HGB (test code = MCH) 33.6 pg 27.0-33.0 H MEAN CELL HGB CONCETRATION (test code = MCHC) 33.2 g/dL 33.0-37. 0 N RED CELL DISTRIBUTION WIDTH CV (test code = RDW) 12.0 % 11.5- 14.5 N RED CELL DISTRIBUTION WIDTH SD (test code = RDW-SD) 44.4 fL 37 .0-54.0 N PLATELET COUNT (test code = PLT) 165 x10 3/uL 150-400 N MEAN PLATELET VOLUME (test code = MPV) 9.7 fL 7.0-9.0 H NEUTROPHIL % (test code = NT%) 84.8 % 56.0-77.0 H IMMATURE GRANULOCYTE % (test code = IG%) 0.6 % 0.0-2.0 N LYMPHOCYTE % (test code = LY%) 6.9 % 14.0-32.0 L MONOCYTE % (test code = MO%) 7.5 % 4.8-9.0 N EOSINOPHIL % (test code = EO%) 0.0 % 0.3-3.7 L BASOPHIL % (test code = BA%) 0.2 % 0.0-2.0 N NUCLEATED RBC % (test code = NRBC%) 0.0 % 0-0 N NEUTROPHIL # (test code = NT#) 11.01 x10 3/uL 2.0-7.6 H IMMATURE GRANULOCYTE # (test code = IG#) 0.08 x10 3/uL 0.00-0.03 H LYMPHOCYTE # (test code = LY#) 0.90 x10 3/uL 1.0-3.8 L MONOCYTE # (test code = MO#) 0.97 x10 3/uL 0.1-0.8 H EOSINOPHIL # (test code = EO#) 0.00 x10 3/uL 0.0-0.2 N BASOPHIL # (test code = BA#) 0.02 x10 3/uL 0.0-0.2 N NUCLEATED RBC # (test code = NRBC#) 0.00 x10 3/uL 0.0-0.1 N MANUAL DIFF REQUIRED (test code = MDIFF) NO COMMENTS: Daily while on [id number] 22:22:00* Test Item Value Reference Range Interpretation Comments GLUBED (test code = GLUBED) 108 MG/DL 70-110 N Performed by certified ski lift operator at [facility] [id number] 22:22:00* Test Item Value Reference Range Interpretation Comments GLUBED (test code = GLUBED) 117 MG/DL 70-110 H Performed by certified ski lift operator at [facility] [id number] 22:22:00* Test Item Value Reference Range Interpretation Comments GLUBED (test code = GLUBED) 120 MG/DL 70-110 H Performed by certified ski lift operator at [facility] BLOOD GAS [id number] 20:12:00* Test Item Value Reference Range Interpretation Comments ARTERIAL BLOOD GAS PH (test code = PHA) 7.393 7.35-7.45 N ARTERIAL BLOOD GAS PCO2 (test code = PCO2A) 38.3 mmHg 35-45 N ARTERIAL BLOOD GAS PO2 (test code = PO2A) 193 mmHg 80-100 H BICARBONATE TOTAL HCO3 (test code = HCO3) 23.4 mmol/L 22.0-26.0 N BASE EXCESS (test code = KAYLAN) -2.0 mmol/L -4-4 N ABG O2 SATURATION (test code = SATA) 100 % 90-100 N FIO2 (test code = FIO2A) 40 % ABG DELIVERY (test code = DELORES) Vent ABG VENT MODE (test code = MODEA) PSV ABG PEEP (test code = PEEPA) 5 cmH2O Performed by certified ski lift operator at [facility] ABG TEMPERATURE (test code = TEMPA) 98.2 F ABG SITE (test code = SITEA) Art line PREDICTED AA GRADIENT (test code = AP) 62 PREDICTED PO2 (test code = OP) 177 a/A RATIO (test code = RATIO) 0.81 IONIZED CALCIUM (test code = CAIABG) 1.25 mmoL/L 1.15-1.35 N A-A GRADIENT (test code = AAGRADE) 46 SODIUM BEDSIDE (test code = NAB) 143 MEQ/L 134-147 N POTASSIUM BEDSIDE (test code = KBD) 4.2 MEQ/L 4.5-7.0 L ISTAT BLOOD [id number] 18:51:00* Test Item Value Reference Range Interpretation Comments ARTERIAL BLOOD GAS PH (test code = PHA) 7.343 7.35-7.45 L ARTERIAL BLOOD GAS PCO2 (test code = PCO2A) 41.5 mmHg 35-45 N ARTERIAL BLOOD GAS PO2 (test code = PO2A) 190 mmHg 80-100 H BICARBONATE TOTAL HCO3 (test code = HCO3) 22.6 mmol/L 22.0-26.0 N BASE EXCESS (test code = KAYLAN) -3.0 mmol/L -4-4 N ABG O2 SATURATION (test code = SATA) 100 % 90-100 N FIO2 (test code = FIO2A) 40 % ABG DELIVERY (test code = DELORES) Vent ABG VENT MODE (test code = MODEA) PSV ABG TIDAL VOLUME (test code = TVA) 321 ml ABG PEEP (test code = PEEPA) 5 cmH2O ABG PRESSURE SUPPORT (test code = PSABG) 10 cmH2O Performed by certified ski lift operator at [facility] ABG TEMPERATURE (test code = TEMPA) 98.0 F ABG SITE (test code = SITEA) Art line PREDICTED AA GRADIENT (test code = AP) 61 PREDICTED PO2 (test code = OP) 174 a/A RATIO (test code = RATIO) 0.81 POC LACTIC ACID (test code = POCLAC) 1.0 mmol/L 0.9-1.7 N A-A GRADIENT (test code = AAGRADE) 45 CBC W/AUTO [id number] 17:54:00* Test Item Value Reference Range Interpretation Comments WHITE BLOOD CELL (test code = WBC) 19.12 x10 3/uL 4.5-11.0 H RED BLOOD CELL (test code = RBC) 2.72 x10 6/uL 3.54-5.02 L HEMOGLOBIN (test code = HGB) 9.4 g/dL 11.0-15.0 L HEMATOCRIT (test code = HCT) 26.6 % 33.0-45.0 L MEAN CELL VOLUME (test code = MCV) 97.8 fL 81.0-99.0 N MEAN CELL HGB (test code = MCH) 34.6 pg 27.0-33.0 H MEAN CELL HGB CONCETRATION (test code = MCHC) 35.3 g/dL 33.0-37. 0 N RED CELL DISTRIBUTION WIDTH CV (test code = RDW) 11.8 % 11.5- 14.5 N RED CELL DISTRIBUTION WIDTH SD (test code = RDW-SD) 41.7 fL 37 .0-54.0 N PLATELET COUNT (test code = PLT) 179 x10 3/uL 150-400 N MEAN PLATELET VOLUME (test code = MPV) 9.2 fL 7.0-9.0 H NEUTROPHIL % (test code = NT%) 74.2 % 56.0-77.0 N IMMATURE GRANULOCYTE % (test code = IG%) 1.2 % 0.0-2.0 N LYMPHOCYTE % (test code = LY%) 16.9 % 14.0-32.0 N MONOCYTE % (test code = MO%) 6.7 % 4.8-9.0 N EOSINOPHIL % (test code = EO%) 0.8 % 0.3-3.7 N BASOPHIL % (test code = BA%) 0.2 % 0.0-2.0 N NUCLEATED RBC % (test code = NRBC%) 0.0 % 0-0 N NEUTROPHIL # (test code = NT#) 14.19 x10 3/uL 2.0-7.6 H IMMATURE GRANULOCYTE # (test code = IG#) 0.23 x10 3/uL 0.00-0.03 H LYMPHOCYTE # (test code = LY#) 3.24 x10 3/uL 1.0-3.8 N MONOCYTE # (test code = MO#) 1.28 x10 3/uL 0.1-0.8 H EOSINOPHIL # (test code = EO#) 0.15 x10 3/uL 0.0-0.2 N BASOPHIL # (test code = BA#) 0.03 x10 3/uL 0.0-0.2 N NUCLEATED RBC # (test code = NRBC#) 0.00 x10 3/uL 0.0-0.1 N MANUAL DIFF REQUIRED (test code = MDIFF) NO SLIDE REVIEWED, CONSISTENT WITH AUTO DIFF. COMMENTS: On arrivalCBC W/AUTO [id number] 17:08:00* Test Item Value Reference Range Interpretation Comments WHITE BLOOD CELL (test code = WBC) 19.12 x10 3/uL 4.5-11.0 H RED BLOOD CELL (test code = RBC) 2.72 x10 6/uL 3.54-5.02 L HEMOGLOBIN (test code = HGB) 9.4 g/dL 11.0-15.0 L HEMATOCRIT (test code = HCT) 26.6 % 33.0-45.0 L MEAN CELL VOLUME (test code = MCV) 97.8 fL 81.0-99.0 N MEAN CELL HGB (test code = MCH) 34.6 pg 27.0-33.0 H MEAN CELL HGB CONCETRATION (test code = MCHC) 35.3 g/dL 33.0-37. 0 N RED CELL DISTRIBUTION WIDTH CV (test code = RDW) 11.8 % 11.5- 14.5 N RED CELL DISTRIBUTION WIDTH SD (test code = RDW-SD) 41.7 fL 37 .0-54.0 N PLATELET COUNT (test code = PLT) 179 x10 3/uL 150-400 N MEAN PLATELET VOLUME (test code = MPV) 9.2 fL 7.0-9.0 H NEUTROPHIL % (test code = NT%) % 56.0-77.0 LYMPHOCYTE % (test code = LY%) % 14.0-32.0 NEUTROPHIL # (test code = NT#) x10 3/uL 2.0-7.6 LYMPHOCYTE # (test code = LY#) x10 3/uL 1.0-3.8 MANUAL DIFF REQUIRED (test code = MDIFF) COMMENTS: On arrivalPROTHROMBIN [id number] 17:08:00* Test Item Value Reference Range Interpretation Comments PROTHROMBIN TIME PATIENT (test code = PTP) 15.2 SECONDS 9.3-12.9 H INTERNATIONAL NORMAL RATIO (test code = INR) 1.4 0.8-1.2 H TARGET INR BY INDICATION Indication INR1. Prophylaxis of venous thrombosis 2.0 - 3.0 (orthopedic surgery), Prophylaxis of venous thrombosis (other than high-risk surgery), Treatment of Deep Vein Thrombosis/Pulmonary Embolism, Prevention of systemic embolism - Tissue heart valves, Acute Myocardial Infarction (to prevent systemic embolism), Valvular heart disease, Atrial Fibrillation, Bileaflet mechanical valve in aortic position.2. Mechanical prosthetic valves (high risk), 2.5 - 3.5 Presence of Lupus Anticoagulant or Antiphospholipid Antibodies, Prevention of systemic embolism - Acute Myocardial Infarction (to prevent recurrent infarct). COMMENTS: On arrivalTHROMBOPLASTIN TIME [id number] 17:08:00* Test Item Value Reference Range Interpretation Comments THROMBOPLASTIN TIME PARTIAL (test code = PTT) 32.6 Seconds 25.0-39. 5 Therapeutic Range: 50.4 - 88.3 Seconds Effective 10/08/2018 COMMENTS: On arrival- XR CHEST 1 [id number] 17:08:00 FAX: Lito Dela Cruz I [phone] [place]: St: ADM FAX: Celeste Murray [phone] Name: EVA MG [facility] : 1970 Age/S: 48/F [address] [place] [address] Unit #: [id number] Loc: [id number] [place] X [id number] Phys: Janene Cameron [employer] Acct: [id number] Dis Date: Status: ADM IN PHONE #: [phone] Exam Date: 06/03/2019 1704 FAX #: [phone] Reason: Cardiac Surgery Post Op EXAMS: CPT CODE: [id number] XR CHEST 1 V [id number] Exam: Chest radiograph frontal view Indication: 48-year-old female status post cardiac surgery. Comparison: Chest radiograph frontal view on 05/23/2019. Technique: Chest radiograph frontal view Findings: The cardiomediastinal silhouette is within normal limits. Interval placement of multiple median sternotomy wires and surgical clips suggest prior CABG. Interval pl acement of endotracheal tube with the distal tip approximately 3.5 cm supe rior to the rena. Interval placement of vascular sheath in the right ne ck. Interval placement of two mediastinal drains. No focal airspace cons olidation. No pleural effusion. No pneumothorax. No acute osseous abnor mality. Impression: 1. Lines and tubes as described. 2. Postsurgical changes status post interval CABG.. SL: [id number] at 1709 Reported and s igned by: Isaac Lopez M.D. CC: Lito Chanel MD; Janene Carroll NP Technologist: RT Ana Laura(R) Trnscrd Date/Time/By: 06/03/2019 (1917) : By: [email or web address] [facility] Print D/T: S: 06/03/2019 (9142) PAGE 1 Signed Report BASIC METABOLIC [id number] 17:06:00* Test Item Value Reference Range Interpretation Comments SODIUM (test code = NA) 142 mEq/L 134-147 N POTASSIUM (test code = K) 4.1 mEq/L 3.4-5.0 N CHLORIDE (test code = CL) 110 mEq/L 100-108 H CARBON DIOXIDE (test code = CO2) 24 mEq/L 21-33 N ANION GAP (test code = GAP) 12 0-20 N GLUCOSE (test code = GLU) 110 mg/dL 70-110 N BLOOD UREA NITROGEN (test code = BUN) 22 mg/dL 7-18 H GLOMERULAR FILTRATION RATE (test code = GFR) 57.8 95-105 L Units of measure = ml/min/1.73 m2 CREATININE (test code = CREAT) 1.2 mg/dL 0.6-1.3 N CALCIUM (test code = CA) 8.8 mg/dL 8.0-10.5 N COMMENTS: On [id number] 17:06:00* Test Item Value Reference Range Interpretation Comments MAGNESIUM (test code = MAG) 2.90 mg/dL 1.8-2.4 H COMMENTS: On [id number] 16:54:00* Test Item Value Reference Range Interpretation Comments GLUBED (test code = GLUBED) 105 MG/DL 70-110 N Performed by certified ski lift operator at [facility] ISTAT BLOOD [id number] 16:52:00* Test Item Value Reference Range Interpretation Comments ARTERIAL BLOOD GAS PH (test code = PHA) 7.433 7.35-7.45 N ARTERIAL BLOOD GAS PCO2 (test code = PCO2A) 34.3 mmHg 35-45 L ARTERIAL BLOOD GAS PO2 (test code = PO2A) 193 mmHg 80-100 H BICARBONATE TOTAL HCO3 (test code = HCO3) 23.0 mmol/L 22.0-26.0 N BASE EXCESS (test code = KAYLAN) -1.0 mmol/L -4-4 N ABG O2 SATURATION (test code = SATA) 100 % 90-100 N FIO2 (test code = FIO2A) 60 % ABG DELIVERY (test code = DELORES) Vent ABG VENT MODE (test code = MODEA) AC v con ABG VENT RESP RATE (test code = RRA) 10 /MIN ABG TIDAL VOLUME (test code = TVA) 600 ml ABG PEEP (test code = PEEPA) 5 cmH2O Performed by certified ski lift operator at [facility] ABG TEMPERATURE (test code = TEMPA) 98.0 F ABG SITE (test code = SITEA) Art line PREDICTED AA GRADIENT (test code = AP) 100 PREDICTED PO2 (test code = OP) 286 a/A RATIO (test code = RATIO) 0.50 POC LACTIC ACID (test code = POCLAC) 2.3 mmol/L 0.9-1.7 H A-A GRADIENT (test code = AAGRADE) 194 BLOOD GAS W/[id number] 16:48:00* Test Item Value Reference Range Interpretation Comments ARTERIAL BLOOD GAS PH (test code = PHA) 7.446 7.35-7.45 N ARTERIAL BLOOD GAS PCO2 (test code = PCO2A) 34.7 mmHg 35-45 L ARTERIAL BLOOD GAS PO2 (test code = PO2A) 170 mmHg 80-100 H BICARBONATE TOTAL HCO3 (test code = HCO3) 24.0 mmol/L 22.0-26.0 N BASE EXCESS (test code = KAYLAN) 0.0 mmol/L -4-4 N ABG O2 SATURATION (test code = SATA) 100 % 90-100 N FIO2 (test code = FIO2A) 60 % ABG DELIVERY (test code = DELORES) Vent ABG VENT MODE (test code = MODEA) AC v con ABG VENT RESP RATE (test code = RRA) 10 /MIN ABG TIDAL VOLUME (test code = TVA) 600 ml ABG PEEP (test code = PEEPA) 5 cmH2O Performed by certified ski lift operator at [facility] ABG TEMPERATURE (test code = TEMPA) 98.0 F ABG SITE (test code = SITEA) Art line PREDICTED AA GRADIENT (test code = AP) 100 PREDICTED PO2 (test code = OP) 286 a/A RATIO (test code = RATIO) 0.44 IONIZED CALCIUM (test code = CAIABG) 1.30 mmoL/L 1.15-1.35 N A-A GRADIENT (test code = AAGRADE) 216 SODIUM BEDSIDE (test code = NAB) 140 MEQ/L 134-147 N POTASSIUM BEDSIDE (test code = KBD) 4.0 MEQ/L 4.5-7.0 L POC ARTERIAL BLOOD [id number] 16:08:00* Test Item Value Reference Range Interpretation Comments POC ARTERIAL BLOOD GAS PH (test code = POCPHA) 7.444 7.35-7. 45 N POC ARTERIAL BLOOD GAS PCO2 (test code = GJFNQU0P) 32.2 mmHg 35. 0-45 L POC TCO2 ARTERIAL (test code = POCTCO2) 23.1 POC ARTERIAL BLOOD GAS PO2 (test code = CLTCZ2H) 367.3 mmHg 80-10 0.0 HH POC HCO3 ARTERIAL (test code = LOZNJL8F) 22.1 MMOL/L 22.0-26.0 N POC BASE EXCESS (test code = POCBEA) -1.6 MMOL/L -4.0-4.0 N POC O2 SATURATION (test code = POCO2S) 100.0 % 90-100 N [id number] 16:08:00* Test Item Value Reference Range Interpretation Comments SODIUM (test code = NA/ABG) MEQ/L 134-147 [id number] 16:08:00* Test Item Value Reference Range Interpretation Comments POTASSIUM (test code = K/ABG) MEQ/L 3.4-5.0 [id number] 16:08:00* Test Item Value Reference Range Interpretation Comments CHLORIDE (test code = CL/ABG) MEQ/L 100-108 CREATININE [id number] 16:08:00* Test Item Value Reference Range Interpretation Comments CREATININE ABG (test code = CREAABG) mg/dL 0.6-1.0 [id number] 16:08:00* Test Item Value Reference Range Interpretation Comments HEMOGLOBIN (test code = HGB/ABG) G/DL 11.0-15.0 [id number] 16:08:00* Test Item Value Reference Range Interpretation Comments HEMATOCRIT (test code = HCT/ABG) % 33.0-45.0 POC IONIZED [id number] 16:08:00* Test Item Value Reference Range Interpretation Comments POC IONIZED CALCIUM (test code = POCCA) MMOL/L 1.12-1.32 POC [id number] 16:08:00* Test Item Value Reference Range Interpretation Comments POC GLUCOSE (test code = POCGLU) MG/DL 70-110 POC ARTERIAL BLOOD [id number] 16:08:00* Test Item Value Reference Range Interpretation Comments POC ARTERIAL BLOOD GAS PH (test code = POCPHA) 7.444 7.35-7. 45 N POC ARTERIAL BLOOD GAS PCO2 (test code = TAFPOZ1L) 32.2 mmHg 35. 0-45 L POC TCO2 ARTERIAL (test code = POCTCO2) 23.1 POC ARTERIAL BLOOD GAS PO2 (test code = TWQLR2N) 367.3 mmHg 80-10 0.0 HH POC HCO3 ARTERIAL (test code = KLPEXB9H) 22.1 MMOL/L 22.0-26.0 N POC BASE EXCESS (test code = POCBEA) -1.6 MMOL/L -4.0-4.0 N POC O2 SATURATION (test code = POCO2S) 100.0 % 90-100 N [id number] 16:08:00* Test Item Value Reference Range Interpretation Comments SODIUM (test code = NA/ABG) 141 MEQ/L 134-147 N [id number] 16:08:00* Test Item Value Reference Range Interpretation Comments POTASSIUM (test code = K/ABG) MEQ/L 3.4-5.0 [id number] 16:08:00* Test Item Value Reference Range Interpretation Comments CHLORIDE (test code = CL/ABG) MEQ/L 100-108 CREATININE [id number] 16:08:00* Test Item Value Reference Range Interpretation Comments CREATININE ABG (test code = CREAABG) mg/dL 0.6-1.0 [id number] 16:08:00* Test Item Value Reference Range Interpretation Comments HEMOGLOBIN (test code = HGB/ABG) G/DL 11.0-15.0 [id number] 16:08:00* Test Item Value Reference Range Interpretation Comments HEMATOCRIT (test code = HCT/ABG) % 33.0-45.0 POC IONIZED [id number] 16:08:00* Test Item Value Reference Range Interpretation Comments POC IONIZED CALCIUM (test code = POCCA) MMOL/L 1.12-1.32 POC [id number] 16:08:00* Test Item Value Reference Range Interpretation Comments POC GLUCOSE (test code = POCGLU) MG/DL 70-110 POC ARTERIAL BLOOD [id number] 16:08:00* Test Item Value Reference Range Interpretation Comments POC ARTERIAL BLOOD GAS PH (test code = POCPHA) 7.444 7.35-7. 45 N POC ARTERIAL BLOOD GAS PCO2 (test code = KIXRPW5H) 32.2 mmHg 35. 0-45 L POC TCO2 ARTERIAL (test code = POCTCO2) 23.1 POC ARTERIAL BLOOD GAS PO2 (test code = PHNUO2V) 367.3 mmHg 80-10 0.0 HH POC HCO3 ARTERIAL (test code = UYXNMK7I) 22.1 MMOL/L 22.0-26.0 N POC BASE EXCESS (test code = POCBEA) -1.6 MMOL/L -4.0-4.0 N POC O2 SATURATION (test code = POCO2S) 100.0 % 90-100 N [id number] 16:08:00* Test Item Value Reference Range Interpretation Comments SODIUM (test code = NA/ABG) 141 MEQ/L 134-147 N [id number] 16:08:00* Test Item Value Reference Range Interpretation Comments POTASSIUM (test code = K/ABG) 4.2 MEQ/L 3.4-5.0 N [id number] 16:08:00* Test Item Value Reference Range Interpretation Comments CHLORIDE (test code = CL/ABG) MEQ/L 100-108 CREATININE [id number] 16:08:00* Test Item Value Reference Range Interpretation Comments CREATININE ABG (test code = CREAABG) mg/dL 0.6-1.0 [id number] 16:08:00* Test Item Value Reference Range Interpretation Comments HEMOGLOBIN (test code = HGB/ABG) G/DL 11.0-15.0 [id number] 16:08:00* Test Item Value Reference Range Interpretation Comments HEMATOCRIT (test code = HCT/ABG) % 33.0-45.0 POC IONIZED [id number] 16:08:00* Test Item Value Reference Range Interpretation Comments POC IONIZED CALCIUM (test code = POCCA) MMOL/L 1.12-1.32 POC [id number] 16:08:00* Test Item Value Reference Range Interpretation Comments POC GLUCOSE (test code = POCGLU) MG/DL 70-110 POC ARTERIAL BLOOD [id number] 16:08:00* Test Item Value Reference Range Interpretation Comments POC ARTERIAL BLOOD GAS PH (test code = POCPHA) 7.444 7.35-7. 45 N POC ARTERIAL BLOOD GAS PCO2 (test code = NTBASF6C) 32.2 mmHg 35. 0-45 L POC TCO2 ARTERIAL (test code = POCTCO2) 23.1 POC ARTERIAL BLOOD GAS PO2 (test code = LXLPO8E) 367.3 mmHg 80-10 0.0 HH POC HCO3 ARTERIAL (test code = QJSETD0H) 22.1 MMOL/L 22.0-26.0 N POC BASE EXCESS (test code = POCBEA) -1.6 MMOL/L -4.0-4.0 N POC O2 SATURATION (test code = POCO2S) 100.0 % 90-100 N [id number] 16:08:00* Test Item Value Reference Range Interpretation Comments SODIUM (test code = NA/ABG) 141 MEQ/L 134-147 N [id number] 16:08:00* Test Item Value Reference Range Interpretation Comments POTASSIUM (test code = K/ABG) 4.2 MEQ/L 3.4-5.0 N [id number] 16:08:00* Test Item Value Reference Range Interpretation Comments CHLORIDE (test code = CL/ABG) MEQ/L 100-108 CREATININE [id number] 16:08:00* Test Item Value Reference Range Interpretation Comments CREATININE ABG (test code = CREAABG) mg/dL 0.6-1.0 [id number] 16:08:00* Test Item Value Reference Range Interpretation Comments HEMOGLOBIN (test code = HGB/ABG) G/DL 11.0-15.0 [id number] 16:08:00* Test Item Value Reference Range Interpretation Comments HEMATOCRIT (test code = HCT/ABG) % 33.0-45.0 POC IONIZED [id number] 16:08:00* Test Item Value Reference Range Interpretation Comments POC IONIZED CALCIUM (test code = POCCA) 1.25 MMOL/L 1.12-1.32 N POC [id number] 16:08:00* Test Item Value Reference Range Interpretation Comments POC GLUCOSE (test code = POCGLU) MG/DL 70-110 POC ARTERIAL BLOOD [id number] 16:08:00* Test Item Value Reference Range Interpretation Comments POC ARTERIAL BLOOD GAS PH (test code = POCPHA) 7.444 7.35-7. 45 N POC ARTERIAL BLOOD GAS PCO2 (test code = FNIKWO8P) 32.2 mmHg 35. 0-45 L POC TCO2 ARTERIAL (test code = POCTCO2) 23.1 POC ARTERIAL BLOOD GAS PO2 (test code = UFELO7Q) 367.3 mmHg 80-10 0.0 HH POC HCO3 ARTERIAL (test code = YHRQXU7J) 22.1 MMOL/L 22.0-26.0 N POC BASE EXCESS (test code = POCBEA) -1.6 MMOL/L -4.0-4.0 N POC O2 SATURATION (test code = POCO2S) 100.0 % 90-100 N [id number] 16:08:00* Test Item Value Reference Range Interpretation Comments SODIUM (test code = NA/ABG) 141 MEQ/L 134-147 N [id number] 16:08:00* Test Item Value Reference Range Interpretation Comments POTASSIUM (test code = K/ABG) 4.2 MEQ/L 3.4-5.0 N [id number] 16:08:00* Test Item Value Reference Range Interpretation Comments CHLORIDE (test code = CL/ABG) MEQ/L 100-108 CREATININE [id number] 16:08:00* Test Item Value Reference Range Interpretation Comments CREATININE ABG (test code = CREAABG) mg/dL 0.6-1.0 [id number] 16:08:00* Test Item Value Reference Range Interpretation Comments HEMOGLOBIN (test code = HGB/ABG) G/DL 11.0-15.0 [id number] 16:08:00* Test Item Value Reference Range Interpretation Comments HEMATOCRIT (test code = HCT/ABG) % 33.0-45.0 POC IONIZED [id number] 16:08:00* Test Item Value Reference Range Interpretation Comments POC IONIZED CALCIUM (test code = POCCA) 1.25 MMOL/L 1.12-1.32 N POC [id number] 16:08:00* Test Item Value Reference Range Interpretation Comments POC GLUCOSE (test code = POCGLU) 84 MG/DL 70-110 N POC ARTERIAL BLOOD [id number] 16:08:00* Test Item Value Reference Range Interpretation Comments POC ARTERIAL BLOOD GAS PH (test code = POCPHA) 7.444 7.35-7. 45 N POC ARTERIAL BLOOD GAS PCO2 (test code = SFLNCZ4O) 32.2 mmHg 35. 0-45 L POC TCO2 ARTERIAL (test code = POCTCO2) 23.1 POC ARTERIAL BLOOD GAS PO2 (test code = CEHCL6F) 367.3 mmHg 80-10 0.0 HH POC HCO3 ARTERIAL (test code = VRNGNC2I) 22.1 MMOL/L 22.0-26.0 N POC BASE EXCESS (test code = POCBEA) -1.6 MMOL/L -4.0-4.0 N POC O2 SATURATION (test code = POCO2S) 100.0 % 90-100 N [id number] 16:08:00* Test Item Value Reference Range Interpretation Comments SODIUM (test code = NA/ABG) 141 MEQ/L 134-147 N [id number] 16:08:00* Test Item Value Reference Range Interpretation Comments POTASSIUM (test code = K/ABG) 4.2 MEQ/L 3.4-5.0 N [id number] 16:08:00* Test Item Value Reference Range Interpretation Comments CHLORIDE (test code = CL/ABG) MEQ/L 100-108 CREATININE [id number] 16:08:00* Test Item Value Reference Range Interpretation Comments CREATININE ABG (test code = CREAABG) mg/dL 0.6-1.0 [id number] 16:08:00* Test Item Value Reference Range Interpretation Comments HEMOGLOBIN (test code = HGB/ABG) G/DL 11.0-15.0 [id number] 16:08:00* Test Item Value Reference Range Interpretation Comments HEMATOCRIT (test code = HCT/ABG) 25 % 33.0-45.0 L POC IONIZED [id number] 16:08:00* Test Item Value Reference Range Interpretation Comments POC IONIZED CALCIUM (test code = POCCA) 1.25 MMOL/L 1.12-1.32 N POC [id number] 16:08:00* Test Item Value Reference Range Interpretation Comments POC GLUCOSE (test code = POCGLU) 84 MG/DL 70-110 N POC ARTERIAL BLOOD [id number] 16:08:00* Test Item Value Reference Range Interpretation Comments POC ARTERIAL BLOOD GAS PH (test code = POCPHA) 7.444 7.35-7. 45 N POC ARTERIAL BLOOD GAS PCO2 (test code = KEDTTL3H) 32.2 mmHg 35. 0-45 L POC TCO2 ARTERIAL (test code = POCTCO2) 23.1 POC ARTERIAL BLOOD GAS PO2 (test code = GCUIF0E) 367.3 mmHg 80-10 0.0 HH POC HCO3 ARTERIAL (test code = MSGBNE7H) 22.1 MMOL/L 22.0-26.0 N POC BASE EXCESS (test code = POCBEA) -1.6 MMOL/L -4.0-4.0 N POC O2 SATURATION (test code = POCO2S) 100.0 % 90-100 N [id number] 16:08:00* Test Item Value Reference Range Interpretation Comments SODIUM (test code = NA/ABG) 141 MEQ/L 134-147 N [id number] 16:08:00* Test Item Value Reference Range Interpretation Comments POTASSIUM (test code = K/ABG) 4.2 MEQ/L 3.4-5.0 N [id number] 16:08:00* Test Item Value Reference Range Interpretation Comments CHLORIDE (test code = CL/ABG) MEQ/L 100-108 CREATININE [id number] 16:08:00* Test Item Value Reference Range Interpretation Comments CREATININE ABG (test code = CREAABG) mg/dL 0.6-1.0 [id number] 16:08:00* Test Item Value Reference Range Interpretation Comments HEMOGLOBIN (test code = HGB/ABG) 8.5 G/DL 11.0-15.0 L [id number] 16:08:00* Test Item Value Reference Range Interpretation Comments HEMATOCRIT (test code = HCT/ABG) 25 % 33.0-45.0 L POC IONIZED [id number] 16:08:00* Test Item Value Reference Range Interpretation Comments POC IONIZED CALCIUM (test code = POCCA) 1.25 MMOL/L 1.12-1.32 N POC [id number] 16:08:00* Test Item Value Reference Range Interpretation Comments POC GLUCOSE (test code = POCGLU) 84 MG/DL 70-110 N POC ARTERIAL BLOOD [id number] 16:08:00* Test Item Value Reference Range Interpretation Comments POC ARTERIAL BLOOD GAS PH (test code = POCPHA) 7.444 7.35-7. 45 N POC ARTERIAL BLOOD GAS PCO2 (test code = NUMAAS6G) 32.2 mmHg 35. 0-45 L POC TCO2 ARTERIAL (test code = POCTCO2) 23.1 POC ARTERIAL BLOOD GAS PO2 (test code = XGMUH1T) 367.3 mmHg 80-10 0.0 HH POC HCO3 ARTERIAL (test code = ORQCMW5M) 22.1 MMOL/L 22.0-26.0 N POC BASE EXCESS (test code = POCBEA) -1.6 MMOL/L -4.0-4.0 N POC O2 SATURATION (test code = POCO2S) 100.0 % 90-100 N [id number] 16:08:00* Test Item Value Reference Range Interpretation Comments SODIUM (test code = NA/ABG) 141 MEQ/L 134-147 N [id number] 16:08:00* Test Item Value Reference Range Interpretation Comments POTASSIUM (test code = K/ABG) 4.2 MEQ/L 3.4-5.0 N [id number] 16:08:00* Test Item Value Reference Range Interpretation Comments CHLORIDE (test code = CL/ABG) 107 MEQ/L 100-108 N CREATININE [id number] 16:08:00* Test Item Value Reference Range Interpretation Comments CREATININE ABG (test code = CREAABG) mg/dL 0.6-1.0 [id number] 16:08:00* Test Item Value Reference Range Interpretation Comments HEMOGLOBIN (test code = HGB/ABG) 8.5 G/DL 11.0-15.0 L [id number] 16:08:00* Test Item Value Reference Range Interpretation Comments HEMATOCRIT (test code = HCT/ABG) 25 % 33.0-45.0 L POC IONIZED [id number] 16:08:00* Test Item Value Reference Range Interpretation Comments POC IONIZED CALCIUM (test code = POCCA) 1.25 MMOL/L 1.12-1.32 N POC [id number] 16:08:00* Test Item Value Reference Range Interpretation Comments POC GLUCOSE (test code = POCGLU) 84 MG/DL 70-110 N POC ARTERIAL BLOOD [id number] 16:08:00* Test Item Value Reference Range Interpretation Comments POC ARTERIAL BLOOD GAS PH (test code = POCPHA) 7.444 7.35-7. 45 N POC ARTERIAL BLOOD GAS PCO2 (test code = REOPRI0I) 32.2 mmHg 35. 0-45 L POC TCO2 ARTERIAL (test code = POCTCO2) 23.1 POC ARTERIAL BLOOD GAS PO2 (test code = QVVRM4U) 367.3 mmHg 80-10 0.0 HH POC HCO3 ARTERIAL (test code = BZGUJO4M) 22.1 MMOL/L 22.0-26.0 N POC BASE EXCESS (test code = POCBEA) -1.6 MMOL/L -4.0-4.0 N POC O2 SATURATION (test code = POCO2S) 100.0 % 90-100 N [id number] 16:08:00* Test Item Value Reference Range Interpretation Comments SODIUM (test code = NA/ABG) 141 MEQ/L 134-147 N [id number] 16:08:00* Test Item Value Reference Range Interpretation Comments POTASSIUM (test code = K/ABG) 4.2 MEQ/L 3.4-5.0 N [id number] 16:08:00* Test Item Value Reference Range Interpretation Comments CHLORIDE (test code = CL/ABG) 107 MEQ/L 100-108 N CREATININE [id number] 16:08:00* Test Item Value Reference Range Interpretation Comments CREATININE ABG (test code = CREAABG) 0.9 mg/dL 0.6-1.0 N [id number] 16:08:00* Test Item Value Reference Range Interpretation Comments HEMOGLOBIN (test code = HGB/ABG) 8.5 G/DL 11.0-15.0 L [id number] 16:08:00* Test Item Value Reference Range Interpretation Comments HEMATOCRIT (test code = HCT/ABG) 25 % 33.0-45.0 L POC IONIZED [id number] 16:08:00* Test Item Value Reference Range Interpretation Comments POC IONIZED CALCIUM (test code = POCCA) 1.25 MMOL/L 1.12-1.32 N POC [id number] 16:08:00* Test Item Value Reference Range Interpretation Comments POC GLUCOSE (test code = POCGLU) 84 MG/DL 70-110 N POC ARTERIAL BLOOD [id number] 15:34:00* Test Item Value Reference Range Interpretation Comments POC ARTERIAL BLOOD GAS PH (test code = POCPHA) 7.453 7.35-7. 45 H POC ARTERIAL BLOOD GAS PCO2 (test code = LQZDRU9N) 37.5 mmHg 35. 0-45 N POC TCO2 ARTERIAL (test code = POCTCO2) 27.4 POC ARTERIAL BLOOD GAS PO2 (test code = USFFX1M) 448.7 mmHg 80-10 0.0 HH POC HCO3 ARTERIAL (test code = CHKCVI4H) 26.3 MMOL/L 22.0-26.0 H POC BASE EXCESS (test code = POCBEA) 2.2 MMOL/L -4.0-4.0 N POC O2 SATURATION (test code = POCO2S) 100.0 % 90-100 N [id number] 15:34:00* Test Item Value Reference Range Interpretation Comments SODIUM (test code = NA/ABG) MEQ/L 134-147 [id number] 15:34:00* Test Item Value Reference Range Interpretation Comments POTASSIUM (test code = K/ABG) MEQ/L 3.4-5.0 [id number] 15:34:00* Test Item Value Reference Range Interpretation Comments CHLORIDE (test code = CL/ABG) MEQ/L 100-108 CREATININE [id number] 15:34:00* Test Item Value Reference Range Interpretation Comments CREATININE ABG (test code = CREAABG) mg/dL 0.6-1.0 [id number] 15:34:00* Test Item Value Reference Range Interpretation Comments HEMOGLOBIN (test code = HGB/ABG) G/DL 11.0-15.0 [id number] 15:34:00* Test Item Value Reference Range Interpretation Comments HEMATOCRIT (test code = HCT/ABG) % 33.0-45.0 POC IONIZED [id number] 15:34:00* Test Item Value Reference Range Interpretation Comments POC IONIZED CALCIUM (test code = POCCA) MMOL/L 1.12-1.32 POC [id number] 15:34:00* Test Item Value Reference Range Interpretation Comments POC GLUCOSE (test code = POCGLU) MG/DL 70-110 POC ARTERIAL BLOOD [id number] 15:34:00* Test Item Value Reference Range Interpretation Comments POC ARTERIAL BLOOD GAS PH (test code = POCPHA) 7.453 7.35-7. 45 H POC ARTERIAL BLOOD GAS PCO2 (test code = NDCGTO5X) 37.5 mmHg 35. 0-45 N POC TCO2 ARTERIAL (test code = POCTCO2) 27.4 POC ARTERIAL BLOOD GAS PO2 (test code = LAMZP4S) 448.7 mmHg 80-10 0.0 HH POC HCO3 ARTERIAL (test code = TFWHBA6T) 26.3 MMOL/L 22.0-26.0 H POC BASE EXCESS (test code = POCBEA) 2.2 MMOL/L -4.0-4.0 N POC O2 SATURATION (test code = POCO2S) 100.0 % 90-100 N [id number] 15:34:00* Test Item Value Reference Range Interpretation Comments SODIUM (test code = NA/ABG) 138 MEQ/L 134-147 N [id number] 15:34:00* Test Item Value Reference Range Interpretation Comments POTASSIUM (test code = K/ABG) MEQ/L 3.4-5.0 [id number] 15:34:00* Test Item Value Reference Range Interpretation Comments CHLORIDE (test code = CL/ABG) MEQ/L 100-108 CREATININE [id number] 15:34:00* Test Item Value Reference Range Interpretation Comments CREATININE ABG (test code = CREAABG) mg/dL 0.6-1.0 [id number] 15:34:00* Test Item Value Reference Range Interpretation Comments HEMOGLOBIN (test code = HGB/ABG) G/DL 11.0-15.0 [id number] 15:34:00* Test Item Value Reference Range Interpretation Comments HEMATOCRIT (test code = HCT/ABG) % 33.0-45.0 POC IONIZED [id number] 15:34:00* Test Item Value Reference Range Interpretation Comments POC IONIZED CALCIUM (test code = POCCA) MMOL/L 1.12-1.32 POC [id number] 15:34:00* Test Item Value Reference Range Interpretation Comments POC GLUCOSE (test code = POCGLU) MG/DL 70-110 POC ARTERIAL BLOOD [id number] 15:34:00* Test Item Value Reference Range Interpretation Comments POC ARTERIAL BLOOD GAS PH (test code = POCPHA) 7.453 7.35-7. 45 H POC ARTERIAL BLOOD GAS PCO2 (test code = XLPHBW1Q) 37.5 mmHg 35. 0-45 N POC TCO2 ARTERIAL (test code = POCTCO2) 27.4 POC ARTERIAL BLOOD GAS PO2 (test code = XEEOK0U) 448.7 mmHg 80-10 0.0 HH POC HCO3 ARTERIAL (test code = MERGXZ5B) 26.3 MMOL/L 22.0-26.0 H POC BASE EXCESS (test code = POCBEA) 2.2 MMOL/L -4.0-4.0 N POC O2 SATURATION (test code = POCO2S) 100.0 % 90-100 N [id number] 15:34:00* Test Item Value Reference Range Interpretation Comments SODIUM (test code = NA/ABG) 138 MEQ/L 134-147 N [id number] 15:34:00* Test Item Value Reference Range Interpretation Comments POTASSIUM (test code = K/ABG) 6.4 MEQ/L 3.4-5.0 HH [id number] 15:34:00* Test Item Value Reference Range Interpretation Comments CHLORIDE (test code = CL/ABG) MEQ/L 100-108 CREATININE [id number] 15:34:00* Test Item Value Reference Range Interpretation Comments CREATININE ABG (test code = CREAABG) mg/dL 0.6-1.0 [id number] 15:34:00* Test Item Value Reference Range Interpretation Comments HEMOGLOBIN (test code = HGB/ABG) G/DL 11.0-15.0 [id number] 15:34:00* Test Item Value Reference Range Interpretation Comments HEMATOCRIT (test code = HCT/ABG) % 33.0-45.0 POC IONIZED [id number] 15:34:00* Test Item Value Reference Range Interpretation Comments POC IONIZED CALCIUM (test code = POCCA) MMOL/L 1.12-1.32 POC [id number] 15:34:00* Test Item Value Reference Range Interpretation Comments POC GLUCOSE (test code = POCGLU) MG/DL 70-110 POC ARTERIAL BLOOD [id number] 15:34:00* Test Item Value Reference Range Interpretation Comments POC ARTERIAL BLOOD GAS PH (test code = POCPHA) 7.453 7.35-7. 45 H POC ARTERIAL BLOOD GAS PCO2 (test code = SUYXFU4R) 37.5 mmHg 35. 0-45 N POC TCO2 ARTERIAL (test code = POCTCO2) 27.4 POC ARTERIAL BLOOD GAS PO2 (test code = TSANT1N) 448.7 mmHg 80-10 0.0 HH POC HCO3 ARTERIAL (test code = LMUJEG3U) 26.3 MMOL/L 22.0-26.0 H POC BASE EXCESS (test code = POCBEA) 2.2 MMOL/L -4.0-4.0 N POC O2 SATURATION (test code = POCO2S) 100.0 % 90-100 N [id number] 15:34:00* Test Item Value Reference Range Interpretation Comments SODIUM (test code = NA/ABG) 138 MEQ/L 134-147 N [id number] 15:34:00* Test Item Value Reference Range Interpretation Comments POTASSIUM (test code = K/ABG) 6.4 MEQ/L 3.4-5.0 HH [id number] 15:34:00* Test Item Value Reference Range Interpretation Comments CHLORIDE (test code = CL/ABG) MEQ/L 100-108 CREATININE [id number] 15:34:00* Test Item Value Reference Range Interpretation Comments CREATININE ABG (test code = CREAABG) mg/dL 0.6-1.0 [id number] 15:34:00* Test Item Value Reference Range Interpretation Comments HEMOGLOBIN (test code = HGB/ABG) G/DL 11.0-15.0 [id number] 15:34:00* Test Item Value Reference Range Interpretation Comments HEMATOCRIT (test code = HCT/ABG) % 33.0-45.0 POC IONIZED [id number] 15:34:00* Test Item Value Reference Range Interpretation Comments POC IONIZED CALCIUM (test code = POCCA) 0.97 MMOL/L 1.12-1.32 L POC [id number] 15:34:00* Test Item Value Reference Range Interpretation Comments POC GLUCOSE (test code = POCGLU) MG/DL 70-110 POC ARTERIAL BLOOD [id number] 15:34:00* Test Item Value Reference Range Interpretation Comments POC ARTERIAL BLOOD GAS PH (test code = POCPHA) 7.453 7.35-7. 45 H POC ARTERIAL BLOOD GAS PCO2 (test code = SQQTWN7P) 37.5 mmHg 35. 0-45 N POC TCO2 ARTERIAL (test code = POCTCO2) 27.4 POC ARTERIAL BLOOD GAS PO2 (test code = KLFPH0A) 448.7 mmHg 80-10 0.0 HH POC HCO3 ARTERIAL (test code = BKLQCE0A) 26.3 MMOL/L 22.0-26.0 H POC BASE EXCESS (test code = POCBEA) 2.2 MMOL/L -4.0-4.0 N POC O2 SATURATION (test code = POCO2S) 100.0 % 90-100 N [id number] 15:34:00* Test Item Value Reference Range Interpretation Comments SODIUM (test code = NA/ABG) 138 MEQ/L 134-147 N [id number] 15:34:00* Test Item Value Reference Range Interpretation Comments POTASSIUM (test code = K/ABG) 6.4 MEQ/L 3.4-5.0 HH [id number] 15:34:00* Test Item Value Reference Range Interpretation Comments CHLORIDE (test code = CL/ABG) MEQ/L 100-108 CREATININE [id number] 15:34:00* Test Item Value Reference Range Interpretation Comments CREATININE ABG (test code = CREAABG) mg/dL 0.6-1.0 [id number] 15:34:00* Test Item Value Reference Range Interpretation Comments HEMOGLOBIN (test code = HGB/ABG) G/DL 11.0-15.0 [id number] 15:34:00* Test Item Value Reference Range Interpretation Comments HEMATOCRIT (test code = HCT/ABG) % 33.0-45.0 POC IONIZED [id number] 15:34:00* Test Item Value Reference Range Interpretation Comments POC IONIZED CALCIUM (test code = POCCA) 0.97 MMOL/L 1.12-1.32 L POC [id number] 15:34:00* Test Item Value Reference Range Interpretation Comments POC GLUCOSE (test code = POCGLU) 141 MG/DL 70-110 H POC ARTERIAL BLOOD [id number] 15:34:00* Test Item Value Reference Range Interpretation Comments POC ARTERIAL BLOOD GAS PH (test code = POCPHA) 7.453 7.35-7. 45 H POC ARTERIAL BLOOD GAS PCO2 (test code = GOLISI5S) 37.5 mmHg 35. 0-45 N POC TCO2 ARTERIAL (test code = POCTCO2) 27.4 POC ARTERIAL BLOOD GAS PO2 (test code = EZNKB0M) 448.7 mmHg 80-10 0.0 HH POC HCO3 ARTERIAL (test code = NVOPPT4H) 26.3 MMOL/L 22.0-26.0 H POC BASE EXCESS (test code = POCBEA) 2.2 MMOL/L -4.0-4.0 N POC O2 SATURATION (test code = POCO2S) 100.0 % 90-100 N [id number] 15:34:00* Test Item Value Reference Range Interpretation Comments SODIUM (test code = NA/ABG) 138 MEQ/L 134-147 N [id number] 15:34:00* Test Item Value Reference Range Interpretation Comments POTASSIUM (test code = K/ABG) 6.4 MEQ/L 3.4-5.0 HH [id number] 15:34:00* Test Item Value Reference Range Interpretation Comments CHLORIDE (test code = CL/ABG) MEQ/L 100-108 CREATININE [id number] 15:34:00* Test Item Value Reference Range Interpretation Comments CREATININE ABG (test code = CREAABG) mg/dL 0.6-1.0 [id number] 15:34:00* Test Item Value Reference Range Interpretation Comments HEMOGLOBIN (test code = HGB/ABG) G/DL 11.0-15.0 [id number] 15:34:00* Test Item Value Reference Range Interpretation Comments HEMATOCRIT (test code = HCT/ABG) 21 % 33.0-45.0 L POC IONIZED [id number] 15:34:00* Test Item Value Reference Range Interpretation Comments POC IONIZED CALCIUM (test code = POCCA) 0.97 MMOL/L 1.12-1.32 L POC [id number] 15:34:00* Test Item Value Reference Range Interpretation Comments POC GLUCOSE (test code = POCGLU) 141 MG/DL 70-110 H POC ARTERIAL BLOOD [id number] 15:34:00* Test Item Value Reference Range Interpretation Comments POC ARTERIAL BLOOD GAS PH (test code = POCPHA) 7.453 7.35-7. 45 H POC ARTERIAL BLOOD GAS PCO2 (test code = FVFFII7K) 37.5 mmHg 35. 0-45 N POC TCO2 ARTERIAL (test code = POCTCO2) 27.4 POC ARTERIAL BLOOD GAS PO2 (test code = BBXZP8L) 448.7 mmHg 80-10 0.0 HH POC HCO3 ARTERIAL (test code = SJVHVL6I) 26.3 MMOL/L 22.0-26.0 H POC BASE EXCESS (test code = POCBEA) 2.2 MMOL/L -4.0-4.0 N POC O2 SATURATION (test code = POCO2S) 100.0 % 90-100 N [id number] 15:34:00* Test Item Value Reference Range Interpretation Comments SODIUM (test code = NA/ABG) 138 MEQ/L 134-147 N [id number] 15:34:00* Test Item Value Reference Range Interpretation Comments POTASSIUM (test code = K/ABG) 6.4 MEQ/L 3.4-5.0 HH [id number] 15:34:00* Test Item Value Reference Range Interpretation Comments CHLORIDE (test code = CL/ABG) MEQ/L 100-108 CREATININE [id number] 15:34:00* Test Item Value Reference Range Interpretation Comments CREATININE ABG (test code = CREAABG) mg/dL 0.6-1.0 [id number] 15:34:00* Test Item Value Reference Range Interpretation Comments HEMOGLOBIN (test code = HGB/ABG) 7.3 G/DL 11.0-15.0 L [id number] 15:34:00* Test Item Value Reference Range Interpretation Comments HEMATOCRIT (test code = HCT/ABG) 21 % 33.0-45.0 L POC IONIZED [id number] 15:34:00* Test Item Value Reference Range Interpretation Comments POC IONIZED CALCIUM (test code = POCCA) 0.97 MMOL/L 1.12-1.32 L POC [id number] 15:34:00* Test Item Value Reference Range Interpretation Comments POC GLUCOSE (test code = POCGLU) 141 MG/DL 70-110 H POC ARTERIAL BLOOD [id number] 15:34:00* Test Item Value Reference Range Interpretation Comments POC ARTERIAL BLOOD GAS PH (test code = POCPHA) 7.453 7.35-7. 45 H POC ARTERIAL BLOOD GAS PCO2 (test code = RQKENC9X) 37.5 mmHg 35. 0-45 N POC TCO2 ARTERIAL (test code = POCTCO2) 27.4 POC ARTERIAL BLOOD GAS PO2 (test code = NZTVJ8S) 448.7 mmHg 80-10 0.0 HH POC HCO3 ARTERIAL (test code = TDBFQN4W) 26.3 MMOL/L 22.0-26.0 H POC BASE EXCESS (test code = POCBEA) 2.2 MMOL/L -4.0-4.0 N POC O2 SATURATION (test code = POCO2S) 100.0 % 90-100 N [id number] 15:34:00* Test Item Value Reference Range Interpretation Comments SODIUM (test code = NA/ABG) 138 MEQ/L 134-147 N [id number] 15:34:00* Test Item Value Reference Range Interpretation Comments POTASSIUM (test code = K/ABG) 6.4 MEQ/L 3.4-5.0 HH [id number] 15:34:00* Test Item Value Reference Range Interpretation Comments CHLORIDE (test code = CL/ABG) 101 MEQ/L 100-108 N CREATININE [id number] 15:34:00* Test Item Value Reference Range Interpretation Comments CREATININE ABG (test code = CREAABG) mg/dL 0.6-1.0 [id number] 15:34:00* Test Item Value Reference Range Interpretation Comments HEMOGLOBIN (test code = HGB/ABG) 7.3 G/DL 11.0-15.0 L [id number] 15:34:00* Test Item Value Reference Range Interpretation Comments HEMATOCRIT (test code = HCT/ABG) 21 % 33.0-45.0 L POC IONIZED [id number] 15:34:00* Test Item Value Reference Range Interpretation Comments POC IONIZED CALCIUM (test code = POCCA) 0.97 MMOL/L 1.12-1.32 L POC [id number] 15:34:00* Test Item Value Reference Range Interpretation Comments POC GLUCOSE (test code = POCGLU) 141 MG/DL 70-110 H POC ARTERIAL BLOOD [id number] 15:34:00* Test Item Value Reference Range Interpretation Comments POC ARTERIAL BLOOD GAS PH (test code = POCPHA) 7.453 7.35-7. 45 H POC ARTERIAL BLOOD GAS PCO2 (test code = ZBGNZN5W) 37.5 mmHg 35. 0-45 N POC TCO2 ARTERIAL (test code = POCTCO2) 27.4 POC ARTERIAL BLOOD GAS PO2 (test code = CBGYD0I) 448.7 mmHg 80-10 0.0 HH POC HCO3 ARTERIAL (test code = SXUXPO6Q) 26.3 MMOL/L 22.0-26.0 H POC BASE EXCESS (test code = POCBEA) 2.2 MMOL/L -4.0-4.0 N POC O2 SATURATION (test code = POCO2S) 100.0 % 90-100 N [id number] 15:34:00* Test Item Value Reference Range Interpretation Comments SODIUM (test code = NA/ABG) 138 MEQ/L 134-147 N [id number] 15:34:00* Test Item Value Reference Range Interpretation Comments POTASSIUM (test code = K/ABG) 6.4 MEQ/L 3.4-5.0 HH [id number] 15:34:00* Test Item Value Reference Range Interpretation Comments CHLORIDE (test code = CL/ABG) 101 MEQ/L 100-108 N CREATININE [id number] 15:34:00* Test Item Value Reference Range Interpretation Comments CREATININE ABG (test code = CREAABG) 1.1 mg/dL 0.6-1.0 H [id number] 15:34:00* Test Item Value Reference Range Interpretation Comments HEMOGLOBIN (test code = HGB/ABG) 7.3 G/DL 11.0-15.0 L [id number] 15:34:00* Test Item Value Reference Range Interpretation Comments HEMATOCRIT (test code = HCT/ABG) 21 % 33.0-45.0 L POC IONIZED [id number] 15:34:00* Test Item Value Reference Range Interpretation Comments POC IONIZED CALCIUM (test code = POCCA) 0.97 MMOL/L 1.12-1.32 L POC [id number] 15:34:00* Test Item Value Reference Range Interpretation Comments POC GLUCOSE (test code = POCGLU) 141 MG/DL 70-110 H POC ARTERIAL BLOOD [id number] 15:12:00* Test Item Value Reference Range Interpretation Comments POC ARTERIAL BLOOD GAS PH (test code = POCPHA) 7.470 7.35-7. 45 H POC ARTERIAL BLOOD GAS PCO2 (test code = YOGNPB6K) 38.4 mmHg 35. 0-45 N POC TCO2 ARTERIAL (test code = POCTCO2) 29.1 POC ARTERIAL BLOOD GAS PO2 (test code = HMXOH6C) 452.7 mmHg 80-10 0.0 HH POC HCO3 ARTERIAL (test code = LDVUCE7W) 27.9 MMOL/L 22.0-26.0 H POC BASE EXCESS (test code = POCBEA) 4.0 MMOL/L -4.0-4.0 N POC O2 SATURATION (test code = POCO2S) 100.0 % 90-100 N [id number] 15:12:00* Test Item Value Reference Range Interpretation Comments SODIUM (test code = NA/ABG) MEQ/L 134-147 [id number] 15:12:00* Test Item Value Reference Range Interpretation Comments POTASSIUM (test code = K/ABG) MEQ/L 3.4-5.0 [id number] 15:12:00* Test Item Value Reference Range Interpretation Comments CHLORIDE (test code = CL/ABG) MEQ/L 100-108 CREATININE [id number] 15:12:00* Test Item Value Reference Range Interpretation Comments CREATININE ABG (test code = CREAABG) mg/dL 0.6-1.0 [id number] 15:12:00* Test Item Value Reference Range Interpretation Comments HEMOGLOBIN (test code = HGB/ABG) G/DL 11.0-15.0 [id number] 15:12:00* Test Item Value Reference Range Interpretation Comments HEMATOCRIT (test code = HCT/ABG) % 33.0-45.0 POC IONIZED [id number] 15:12:00* Test Item Value Reference Range Interpretation Comments POC IONIZED CALCIUM (test code = POCCA) MMOL/L 1.12-1.32 POC [id number] 15:12:00* Test Item Value Reference Range Interpretation Comments POC GLUCOSE (test code = POCGLU) MG/DL 70-110 POC ARTERIAL BLOOD [id number] 15:12:00* Test Item Value Reference Range Interpretation Comments POC ARTERIAL BLOOD GAS PH (test code = POCPHA) 7.470 7.35-7. 45 H POC ARTERIAL BLOOD GAS PCO2 (test code = LLZQLV5N) 38.4 mmHg 35. 0-45 N POC TCO2 ARTERIAL (test code = POCTCO2) 29.1 POC ARTERIAL BLOOD GAS PO2 (test code = KVBWF2U) 452.7 mmHg 80-10 0.0 HH POC HCO3 ARTERIAL (test code = FQLSGS3G) 27.9 MMOL/L 22.0-26.0 H POC BASE EXCESS (test code = POCBEA) 4.0 MMOL/L -4.0-4.0 N POC O2 SATURATION (test code = POCO2S) 100.0 % 90-100 N [id number] 15:12:00* Test Item Value Reference Range Interpretation Comments SODIUM (test code = NA/ABG) 138 MEQ/L 134-147 N [id number] 15:12:00* Test Item Value Reference Range Interpretation Comments POTASSIUM (test code = K/ABG) MEQ/L 3.4-5.0 [id number] 15:12:00* Test Item Value Reference Range Interpretation Comments CHLORIDE (test code = CL/ABG) MEQ/L 100-108 CREATININE [id number] 15:12:00* Test Item Value Reference Range Interpretation Comments CREATININE ABG (test code = CREAABG) mg/dL 0.6-1.0 [id number] 15:12:00* Test Item Value Reference Range Interpretation Comments HEMOGLOBIN (test code = HGB/ABG) G/DL 11.0-15.0 [id number] 15:12:00* Test Item Value Reference Range Interpretation Comments HEMATOCRIT (test code = HCT/ABG) % 33.0-45.0 POC IONIZED [id number] 15:12:00* Test Item Value Reference Range Interpretation Comments POC IONIZED CALCIUM (test code = POCCA) MMOL/L 1.12-1.32 POC [id number] 15:12:00* Test Item Value Reference Range Interpretation Comments POC GLUCOSE (test code = POCGLU) MG/DL 70-110 POC ARTERIAL BLOOD [id number] 15:12:00* Test Item Value Reference Range Interpretation Comments POC ARTERIAL BLOOD GAS PH (test code = POCPHA) 7.470 7.35-7. 45 H POC ARTERIAL BLOOD GAS PCO2 (test code = EEDFFC0P) 38.4 mmHg 35. 0-45 N POC TCO2 ARTERIAL (test code = POCTCO2) 29.1 POC ARTERIAL BLOOD GAS PO2 (test code = WZLCX0D) 452.7 mmHg 80-10 0.0 HH POC HCO3 ARTERIAL (test code = BOLIVP1H) 27.9 MMOL/L 22.0-26.0 H POC BASE EXCESS (test code = POCBEA) 4.0 MMOL/L -4.0-4.0 N POC O2 SATURATION (test code = POCO2S) 100.0 % 90-100 N [id number] 15:12:00* Test Item Value Reference Range Interpretation Comments SODIUM (test code = NA/ABG) 138 MEQ/L 134-147 N [id number] 15:12:00* Test Item Value Reference Range Interpretation Comments POTASSIUM (test code = K/ABG) 6.0 MEQ/L 3.4-5.0 H [id number] 15:12:00* Test Item Value Reference Range Interpretation Comments CHLORIDE (test code = CL/ABG) MEQ/L 100-108 CREATININE [id number] 15:12:00* Test Item Value Reference Range Interpretation Comments CREATININE ABG (test code = CREAABG) mg/dL 0.6-1.0 [id number] 15:12:00* Test Item Value Reference Range Interpretation Comments HEMOGLOBIN (test code = HGB/ABG) G/DL 11.0-15.0 [id number] 15:12:00* Test Item Value Reference Range Interpretation Comments HEMATOCRIT (test code = HCT/ABG) % 33.0-45.0 POC IONIZED [id number] 15:12:00* Test Item Value Reference Range Interpretation Comments POC IONIZED CALCIUM (test code = POCCA) MMOL/L 1.12-1.32 POC [id number] 15:12:00* Test Item Value Reference Range Interpretation Comments POC GLUCOSE (test code = POCGLU) MG/DL 70-110 POC ARTERIAL BLOOD [id number] 15:12:00* Test Item Value Reference Range Interpretation Comments POC ARTERIAL BLOOD GAS PH (test code = POCPHA) 7.470 7.35-7. 45 H POC ARTERIAL BLOOD GAS PCO2 (test code = RNBAXI9E) 38.4 mmHg 35. 0-45 N POC TCO2 ARTERIAL (test code = POCTCO2) 29.1 POC ARTERIAL BLOOD GAS PO2 (test code = HYAPR7F) 452.7 mmHg 80-10 0.0 HH POC HCO3 ARTERIAL (test code = XJFNZG4Q) 27.9 MMOL/L 22.0-26.0 H POC BASE EXCESS (test code = POCBEA) 4.0 MMOL/L -4.0-4.0 N POC O2 SATURATION (test code = POCO2S) 100.0 % 90-100 N [id number] 15:12:00* Test Item Value Reference Range Interpretation Comments SODIUM (test code = NA/ABG) 138 MEQ/L 134-147 N [id number] 15:12:00* Test Item Value Reference Range Interpretation Comments POTASSIUM (test code = K/ABG) 6.0 MEQ/L 3.4-5.0 H [id number] 15:12:00* Test Item Value Reference Range Interpretation Comments CHLORIDE (test code = CL/ABG) MEQ/L 100-108 CREATININE [id number] 15:12:00* Test Item Value Reference Range Interpretation Comments CREATININE ABG (test code = CREAABG) mg/dL 0.6-1.0 [id number] 15:12:00* Test Item Value Reference Range Interpretation Comments HEMOGLOBIN (test code = HGB/ABG) G/DL 11.0-15.0 [id number] 15:12:00* Test Item Value Reference Range Interpretation Comments HEMATOCRIT (test code = HCT/ABG) % 33.0-45.0 POC IONIZED [id number] 15:12:00* Test Item Value Reference Range Interpretation Comments POC IONIZED CALCIUM (test code = POCCA) 1.00 MMOL/L 1.12-1.32 L POC [id number] 15:12:00* Test Item Value Reference Range Interpretation Comments POC GLUCOSE (test code = POCGLU) MG/DL 70-110 POC ARTERIAL BLOOD [id number] 15:12:00* Test Item Value Reference Range Interpretation Comments POC ARTERIAL BLOOD GAS PH (test code = POCPHA) 7.470 7.35-7. 45 H POC ARTERIAL BLOOD GAS PCO2 (test code = SEJAWN0X) 38.4 mmHg 35. 0-45 N POC TCO2 ARTERIAL (test code = POCTCO2) 29.1 POC ARTERIAL BLOOD GAS PO2 (test code = YPUMP2U) 452.7 mmHg 80-10 0.0 HH POC HCO3 ARTERIAL (test code = FMNQHW0X) 27.9 MMOL/L 22.0-26.0 H POC BASE EXCESS (test code = POCBEA) 4.0 MMOL/L -4.0-4.0 N POC O2 SATURATION (test code = POCO2S) 100.0 % 90-100 N [id number] 15:12:00* Test Item Value Reference Range Interpretation Comments SODIUM (test code = NA/ABG) 138 MEQ/L 134-147 N [id number] 15:12:00* Test Item Value Reference Range Interpretation Comments POTASSIUM (test code = K/ABG) 6.0 MEQ/L 3.4-5.0 H [id number] 15:12:00* Test Item Value Reference Range Interpretation Comments CHLORIDE (test code = CL/ABG) MEQ/L 100-108 CREATININE [id number] 15:12:00* Test Item Value Reference Range Interpretation Comments CREATININE ABG (test code = CREAABG) mg/dL 0.6-1.0 [id number] 15:12:00* Test Item Value Reference Range Interpretation Comments HEMOGLOBIN (test code = HGB/ABG) G/DL 11.0-15.0 [id number] 15:12:00* Test Item Value Reference Range Interpretation Comments HEMATOCRIT (test code = HCT/ABG) % 33.0-45.0 POC IONIZED [id number] 15:12:00* Test Item Value Reference Range Interpretation Comments POC IONIZED CALCIUM (test code = POCCA) 1.00 MMOL/L 1.12-1.32 L POC [id number] 15:12:00* Test Item Value Reference Range Interpretation Comments POC GLUCOSE (test code = POCGLU) 161 MG/DL 70-110 H POC ARTERIAL BLOOD [id number] 15:12:00* Test Item Value Reference Range Interpretation Comments POC ARTERIAL BLOOD GAS PH (test code = POCPHA) 7.470 7.35-7. 45 H POC ARTERIAL BLOOD GAS PCO2 (test code = VLTDUG1C) 38.4 mmHg 35. 0-45 N POC TCO2 ARTERIAL (test code = POCTCO2) 29.1 POC ARTERIAL BLOOD GAS PO2 (test code = ZMUTL0Z) 452.7 mmHg 80-10 0.0 HH POC HCO3 ARTERIAL (test code = VWGMRK1I) 27.9 MMOL/L 22.0-26.0 H POC BASE EXCESS (test code = POCBEA) 4.0 MMOL/L -4.0-4.0 N POC O2 SATURATION (test code = POCO2S) 100.0 % 90-100 N [id number] 15:12:00* Test Item Value Reference Range Interpretation Comments SODIUM (test code = NA/ABG) 138 MEQ/L 134-147 N [id number] 15:12:00* Test Item Value Reference Range Interpretation Comments POTASSIUM (test code = K/ABG) 6.0 MEQ/L 3.4-5.0 H [id number] 15:12:00* Test Item Value Reference Range Interpretation Comments CHLORIDE (test code = CL/ABG) MEQ/L 100-108 CREATININE [id number] 15:12:00* Test Item Value Reference Range Interpretation Comments CREATININE ABG (test code = CREAABG) mg/dL 0.6-1.0 [id number] 15:12:00* Test Item Value Reference Range Interpretation Comments HEMOGLOBIN (test code = HGB/ABG) G/DL 11.0-15.0 [id number] 15:12:00* Test Item Value Reference Range Interpretation Comments HEMATOCRIT (test code = HCT/ABG) 24 % 33.0-45.0 L POC IONIZED [id number] 15:12:00* Test Item Value Reference Range Interpretation Comments POC IONIZED CALCIUM (test code = POCCA) 1.00 MMOL/L 1.12-1.32 L POC [id number] 15:12:00* Test Item Value Reference Range Interpretation Comments POC GLUCOSE (test code = POCGLU) 161 MG/DL 70-110 H POC ARTERIAL BLOOD [id number] 15:12:00* Test Item Value Reference Range Interpretation Comments POC ARTERIAL BLOOD GAS PH (test code = POCPHA) 7.470 7.35-7. 45 H POC ARTERIAL BLOOD GAS PCO2 (test code = CSLYHL9C) 38.4 mmHg 35. 0-45 N POC TCO2 ARTERIAL (test code = POCTCO2) 29.1 POC ARTERIAL BLOOD GAS PO2 (test code = FBBPM8B) 452.7 mmHg 80-10 0.0 HH POC HCO3 ARTERIAL (test code = IOXQDS5U) 27.9 MMOL/L 22.0-26.0 H POC BASE EXCESS (test code = POCBEA) 4.0 MMOL/L -4.0-4.0 N POC O2 SATURATION (test code = POCO2S) 100.0 % 90-100 N [id number] 15:12:00* Test Item Value Reference Range Interpretation Comments SODIUM (test code = NA/ABG) 138 MEQ/L 134-147 N [id number] 15:12:00* Test Item Value Reference Range Interpretation Comments POTASSIUM (test code = K/ABG) 6.0 MEQ/L 3.4-5.0 H [id number] 15:12:00* Test Item Value Reference Range Interpretation Comments CHLORIDE (test code = CL/ABG) MEQ/L 100-108 CREATININE [id number] 15:12:00* Test Item Value Reference Range Interpretation Comments CREATININE ABG (test code = CREAABG) mg/dL 0.6-1.0 [id number] 15:12:00* Test Item Value Reference Range Interpretation Comments HEMOGLOBIN (test code = HGB/ABG) 8.2 G/DL 11.0-15.0 L [id number] 15:12:00* Test Item Value Reference Range Interpretation Comments HEMATOCRIT (test code = HCT/ABG) 24 % 33.0-45.0 L POC IONIZED [id number] 15:12:00* Test Item Value Reference Range Interpretation Comments POC IONIZED CALCIUM (test code = POCCA) 1.00 MMOL/L 1.12-1.32 L POC [id number] 15:12:00* Test Item Value Reference Range Interpretation Comments POC GLUCOSE (test code = POCGLU) 161 MG/DL 70-110 H POC ARTERIAL BLOOD [id number] 15:12:00* Test Item Value Reference Range Interpretation Comments POC ARTERIAL BLOOD GAS PH (test code = POCPHA) 7.470 7.35-7. 45 H POC ARTERIAL BLOOD GAS PCO2 (test code = FJPMBB9F) 38.4 mmHg 35. 0-45 N POC TCO2 ARTERIAL (test code = POCTCO2) 29.1 POC ARTERIAL BLOOD GAS PO2 (test code = XENWL4R) 452.7 mmHg 80-10 0.0 HH POC HCO3 ARTERIAL (test code = QMKPJQ8T) 27.9 MMOL/L 22.0-26.0 H POC BASE EXCESS (test code = POCBEA) 4.0 MMOL/L -4.0-4.0 N POC O2 SATURATION (test code = POCO2S) 100.0 % 90-100 N [id number] 15:12:00* Test Item Value Reference Range Interpretation Comments SODIUM (test code = NA/ABG) 138 MEQ/L 134-147 N [id number] 15:12:00* Test Item Value Reference Range Interpretation Comments POTASSIUM (test code = K/ABG) 6.0 MEQ/L 3.4-5.0 H [id number] 15:12:00* Test Item Value Reference Range Interpretation Comments CHLORIDE (test code = CL/ABG) 99 MEQ/L 100-108 L CREATININE [id number] 15:12:00* Test Item Value Reference Range Interpretation Comments CREATININE ABG (test code = CREAABG) mg/dL 0.6-1.0 [id number] 15:12:00* Test Item Value Reference Range Interpretation Comments HEMOGLOBIN (test code = HGB/ABG) 8.2 G/DL 11.0-15.0 L [id number] 15:12:00* Test Item Value Reference Range Interpretation Comments HEMATOCRIT (test code = HCT/ABG) 24 % 33.0-45.0 L POC IONIZED [id number] 15:12:00* Test Item Value Reference Range Interpretation Comments POC IONIZED CALCIUM (test code = POCCA) 1.00 MMOL/L 1.12-1.32 L POC [id number] 15:12:00* Test Item Value Reference Range Interpretation Comments POC GLUCOSE (test code = POCGLU) 161 MG/DL 70-110 H POC ARTERIAL BLOOD [id number] 15:12:00* Test Item Value Reference Range Interpretation Comments POC ARTERIAL BLOOD GAS PH (test code = POCPHA) 7.470 7.35-7. 45 H POC ARTERIAL BLOOD GAS PCO2 (test code = CPFIKW5B) 38.4 mmHg 35. 0-45 N POC TCO2 ARTERIAL (test code = POCTCO2) 29.1 POC ARTERIAL BLOOD GAS PO2 (test code = XCLMV7M) 452.7 mmHg 80-10 0.0 HH POC HCO3 ARTERIAL (test code = SWRVHP1Z) 27.9 MMOL/L 22.0-26.0 H POC BASE EXCESS (test code = POCBEA) 4.0 MMOL/L -4.0-4.0 N POC O2 SATURATION (test code = POCO2S) 100.0 % 90-100 N [id number] 15:12:00* Test Item Value Reference Range Interpretation Comments SODIUM (test code = NA/ABG) 138 MEQ/L 134-147 N [id number] 15:12:00* Test Item Value Reference Range Interpretation Comments POTASSIUM (test code = K/ABG) 6.0 MEQ/L 3.4-5.0 H [id number] 15:12:00* Test Item Value Reference Range Interpretation Comments CHLORIDE (test code = CL/ABG) 99 MEQ/L 100-108 L CREATININE [id number] 15:12:00* Test Item Value Reference Range Interpretation Comments CREATININE ABG (test code = CREAABG) 1.1 mg/dL 0.6-1.0 H [id number] 15:12:00* Test Item Value Reference Range Interpretation Comments HEMOGLOBIN (test code = HGB/ABG) 8.2 G/DL 11.0-15.0 L [id number] 15:12:00* Test Item Value Reference Range Interpretation Comments HEMATOCRIT (test code = HCT/ABG) 24 % 33.0-45.0 L POC IONIZED [id number] 15:12:00* Test Item Value Reference Range Interpretation Comments POC IONIZED CALCIUM (test code = POCCA) 1.00 MMOL/L 1.12-1.32 L POC [id number] 15:12:00* Test Item Value Reference Range Interpretation Comments POC GLUCOSE (test code = POCGLU) 161 MG/DL 70-110 H - DOP ART ASSISTANT PROFESSOR OF ECONOMICS LEVEL [id number] 15:12:00 Name: EVA MG [facility] : 1970 Age/S: 48 / F [address] [place] [address] Unit #: [id number] Loc: [place] [address] 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 CLINICAL HISTORY: Assess for ulnar collateral arterial flow to hands prior to potential radial artery harvesting for CABG surgery. COMPARISONS: No relevant arterial priors for this anatomic region. FINDINGS: Duplex sonographic evaluation of the hand arterial circulation was performed beginning at the antecubital fossa. Timothy test was performed to assess for the presence or absence of dual collateral arterial circulation to each hand by Doppler. RIGHT SIDE: - Radial artery diameters (antecubital/forearm/wrist): 2/2/2 mm - Radial artery calcification(Y/N)?: No - Ulnar artery diameters (antecubital/forearm/wrist): 1.6/1.4/1.2 mm - Radial artery flow reversal upon compression (Y/N)?: Yes - Antegrade digit flow after radial artery compression (Y/N)?: Yes LEFT SIDE: - Radial artery diameters (antecubital/forearm/wrist): 2/1.6/1.5 mm - Ulnar artery diameters (antecubital/forearm/wrist): 2/1.6/1.5 mm - Radial artery calcification(Y/N)?: No - Radial artery flow reversal upon compression (Y/N)?: No - Antegrade digit flow after radial artery compression (Y/N)?: Yes IMPRESSION: 1. Adequate ulnar collateral c irculation to the right hand after radial artery compression. 2. Inadequate ulnar collateral circulation to the left hand after radial a rtery compression. 3. No visible vascular calcification. SL: ER-H at 1512 Reported and signed by: Olvin Jain M.D. 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 45 LL POC ARTERIAL BLOOD GAS PCO2 (test code = HNBNTC9Y) 55.2 mmHg 35. 0-45 HH POC TCO2 ARTERIAL (test code = POCTCO2) 27.8 POC ARTERIAL BLOOD GAS PO2 (test code = XMERQ7X) 480.5 mmHg 80-10 0.0 HH POC HCO3 ARTERIAL (test code = HCIELZ8F) 26.1 MMOL/L 22.0-26.0 H POC BASE EXCESS (test code = POCBEA) -1.2 MMOL/L -4.0-4.0 N POC O2 SATURATION (test code = POCO2S) 100.0 % 90-100 N [id number] 15:04:00* Test Item Value Reference Range Interpretation Comments SODIUM (test code = NA/ABG) MEQ/L 134-147 [id number] 15:04:00* Test Item Value Reference Range Interpretation Comments POTASSIUM (test code = K/ABG) MEQ/L 3.4-5.0 [id number] 15:04:00* Test Item Value Reference Range Interpretation Comments CHLORIDE (test code = CL/ABG) MEQ/L 100-108 CREATININE [id number] 15:04:00* Test Item Value Reference Range Interpretation Comments CREATININE ABG (test code = CREAABG) mg/dL 0.6-1.0 [id number] 15:04:00* Test Item Value Reference Range Interpretation Comments HEMOGLOBIN (test code = HGB/ABG) G/DL 11.0-15.0 [id number] 15:04:00* Test Item Value Reference Range Interpretation Comments HEMATOCRIT (test code = HCT/ABG) % 33.0-45.0 POC IONIZED [id number] 15:04:00* Test Item Value Reference Range Interpretation Comments POC IONIZED CALCIUM (test code = POCCA) MMOL/L 1.12-1.32 POC [id number] 15:04:00* Test Item Value Reference Range Interpretation Comments POC GLUCOSE (test code = POCGLU) MG/DL 70-110 POC ARTERIAL BLOOD [id number] 15:04:00* Test Item Value Reference Range Interpretation Comments POC ARTERIAL BLOOD GAS PH (test code = POCPHA) 7.282 7.35-7. 45 LL POC ARTERIAL BLOOD GAS PCO2 (test code = RZLYNW9Q) 55.2 mmHg 35. 0-45 HH POC TCO2 ARTERIAL (test code = POCTCO2) 27.8 POC ARTERIAL BLOOD GAS PO2 (test code = QGINO6S) 480.5 mmHg 80-10 0.0 HH POC HCO3 ARTERIAL (test code = XVKAAS6C) 26.1 MMOL/L 22.0-26.0 H POC BASE EXCESS (test code = POCBEA) -1.2 MMOL/L -4.0-4.0 N POC O2 SATURATION (test code = POCO2S) 100.0 % 90-100 N [id number] 15:04:00* Test Item Value Reference Range Interpretation Comments SODIUM (test code = NA/ABG) 139 MEQ/L 134-147 N [id number] 15:04:00* Test Item Value Reference Range Interpretation Comments POTASSIUM (test code = K/ABG) MEQ/L 3.4-5.0 [id number] 15:04:00* Test Item Value Reference Range Interpretation Comments CHLORIDE (test code = CL/ABG) MEQ/L 100-108 CREATININE [id number] 15:04:00* Test Item Value Reference Range Interpretation Comments CREATININE ABG (test code = CREAABG) mg/dL 0.6-1.0 [id number] 15:04:00* Test Item Value Reference Range Interpretation Comments HEMOGLOBIN (test code = HGB/ABG) G/DL 11.0-15.0 [id number] 15:04:00* Test Item Value Reference Range Interpretation Comments HEMATOCRIT (test code = HCT/ABG) % 33.0-45.0 POC IONIZED [id number] 15:04:00* Test Item Value Reference Range Interpretation Comments POC IONIZED CALCIUM (test code = POCCA) MMOL/L 1.12-1.32 POC [id number] 15:04:00* Test Item Value Reference Range Interpretation Comments POC GLUCOSE (test code = POCGLU) MG/DL 70-110 POC ARTERIAL BLOOD [id number] 15:04:00* Test Item Value Reference Range Interpretation Comments POC ARTERIAL BLOOD GAS PH (test code = POCPHA) 7.282 7.35-7. 45 LL POC ARTERIAL BLOOD GAS PCO2 (test code = UKAMEQ4U) 55.2 mmHg 35. 0-45 HH POC TCO2 ARTERIAL (test code = POCTCO2) 27.8 POC ARTERIAL BLOOD GAS PO2 (test code = LRATW1Z) 480.5 mmHg 80-10 0.0 HH POC HCO3 ARTERIAL (test code = EQDSSZ2H) 26.1 MMOL/L 22.0-26.0 H POC BASE EXCESS (test code = POCBEA) -1.2 MMOL/L -4.0-4.0 N POC O2 SATURATION (test code = POCO2S) 100.0 % 90-100 N [id number] 15:04:00* Test Item Value Reference Range Interpretation Comments SODIUM (test code = NA/ABG) 139 MEQ/L 134-147 N [id number] 15:04:00* Test Item Value Reference Range Interpretation Comments POTASSIUM (test code = K/ABG) 4.4 MEQ/L 3.4-5.0 N [id number] 15:04:00* Test Item Value Reference Range Interpretation Comments CHLORIDE (test code = CL/ABG) MEQ/L 100-108 CREATININE [id number] 15:04:00* Test Item Value Reference Range Interpretation Comments CREATININE ABG (test code = CREAABG) mg/dL 0.6-1.0 [id number] 15:04:00* Test Item Value Reference Range Interpretation Comments HEMOGLOBIN (test code = HGB/ABG) G/DL 11.0-15.0 [id number] 15:04:00* Test Item Value Reference Range Interpretation Comments HEMATOCRIT (test code = HCT/ABG) % 33.0-45.0 POC IONIZED [id number] 15:04:00* Test Item Value Reference Range Interpretation Comments POC IONIZED CALCIUM (test code = POCCA) MMOL/L 1.12-1.32 POC [id number] 15:04:00* Test Item Value Reference Range Interpretation Comments POC GLUCOSE (test code = POCGLU) MG/DL 70-110 POC ARTERIAL BLOOD [id number] 15:04:00* Test Item Value Reference Range Interpretation Comments POC ARTERIAL BLOOD GAS PH (test code = POCPHA) 7.282 7.35-7. 45 LL POC ARTERIAL BLOOD GAS PCO2 (test code = MVGRGJ2T) 55.2 mmHg 35. 0-45 HH POC TCO2 ARTERIAL (test code = POCTCO2) 27.8 POC ARTERIAL BLOOD GAS PO2 (test code = PXOAV5G) 480.5 mmHg 80-10 0.0 HH POC HCO3 ARTERIAL (test code = MGRWOY7A) 26.1 MMOL/L 22.0-26.0 H POC BASE EXCESS (test code = POCBEA) -1.2 MMOL/L -4.0-4.0 N POC O2 SATURATION (test code = POCO2S) 100.0 % 90-100 N [id number] 15:04:00* Test Item Value Reference Range Interpretation Comments SODIUM (test code = NA/ABG) 139 MEQ/L 134-147 N [id number] 15:04:00* Test Item Value Reference Range Interpretation Comments POTASSIUM (test code = K/ABG) 4.4 MEQ/L 3.4-5.0 N [id number] 15:04:00* Test Item Value Reference Range Interpretation Comments CHLORIDE (test code = CL/ABG) MEQ/L 100-108 CREATININE [id number] 15:04:00* Test Item Value Reference Range Interpretation Comments CREATININE ABG (test code = CREAABG) mg/dL 0.6-1.0 [id number] 15:04:00* Test Item Value Reference Range Interpretation Comments HEMOGLOBIN (test code = HGB/ABG) G/DL 11.0-15.0 [id number] 15:04:00* Test Item Value Reference Range Interpretation Comments HEMATOCRIT (test code = HCT/ABG) % 33.0-45.0 POC IONIZED [id number] 15:04:00* Test Item Value Reference Range Interpretation Comments POC IONIZED CALCIUM (test code = POCCA) 1.12 MMOL/L 1.12-1.32 N POC [id number] 15:04:00* Test Item Value Reference Range Interpretation Comments POC GLUCOSE (test code = POCGLU) MG/DL 70-110 POC ARTERIAL BLOOD [id number] 15:04:00* Test Item Value Reference Range Interpretation Comments POC ARTERIAL BLOOD GAS PH (test code = POCPHA) 7.282 7.35-7. 45 LL POC ARTERIAL BLOOD GAS PCO2 (test code = VTDCKK0Z) 55.2 mmHg 35. 0-45 HH POC TCO2 ARTERIAL (test code = POCTCO2) 27.8 POC ARTERIAL BLOOD GAS PO2 (test code = CEJZI1N) 480.5 mmHg 80-10 0.0 HH POC HCO3 ARTERIAL (test code = MSGNJC8A) 26.1 MMOL/L 22.0-26.0 H POC BASE EXCESS (test code = POCBEA) -1.2 MMOL/L -4.0-4.0 N POC O2 SATURATION (test code = POCO2S) 100.0 % 90-100 N [id number] 15:04:00* Test Item Value Reference Range Interpretation Comments SODIUM (test code = NA/ABG) 139 MEQ/L 134-147 N [id number] 15:04:00* Test Item Value Reference Range Interpretation Comments POTASSIUM (test code = K/ABG) 4.4 MEQ/L 3.4-5.0 N [id number] 15:04:00* Test Item Value Reference Range Interpretation Comments CHLORIDE (test code = CL/ABG) MEQ/L 100-108 CREATININE [id number] 15:04:00* Test Item Value Reference Range Interpretation Comments CREATININE ABG (test code = CREAABG) mg/dL 0.6-1.0 [id number] 15:04:00* Test Item Value Reference Range Interpretation Comments HEMOGLOBIN (test code = HGB/ABG) G/DL 11.0-15.0 [id number] 15:04:00* Test Item Value Reference Range Interpretation Comments HEMATOCRIT (test code = HCT/ABG) % 33.0-45.0 POC IONIZED [id number] 15:04:00* Test Item Value Reference Range Interpretation Comments POC IONIZED CALCIUM (test code = POCCA) 1.12 MMOL/L 1.12-1.32 N POC [id number] 15:04:00* Test Item Value Reference Range Interpretation Comments POC GLUCOSE (test code = POCGLU) 154 MG/DL 70-110 H POC ARTERIAL BLOOD [id number] 15:04:00* Test Item Value Reference Range Interpretation Comments POC ARTERIAL BLOOD GAS PH (test code = POCPHA) 7.282 7.35-7. 45 LL POC ARTERIAL BLOOD GAS PCO2 (test code = NZRDRL8R) 55.2 mmHg 35. 0-45 HH POC TCO2 ARTERIAL (test code = POCTCO2) 27.8 POC ARTERIAL BLOOD GAS PO2 (test code = ZWZWQ3J) 480.5 mmHg 80-10 0.0 HH POC HCO3 ARTERIAL (test code = HFSFQY4W) 26.1 MMOL/L 22.0-26.0 H POC BASE EXCESS (test code = POCBEA) -1.2 MMOL/L -4.0-4.0 N POC O2 SATURATION (test code = POCO2S) 100.0 % 90-100 N [id number] 15:04:00* Test Item Value Reference Range Interpretation Comments SODIUM (test code = NA/ABG) 139 MEQ/L 134-147 N [id number] 15:04:00* Test Item Value Reference Range Interpretation Comments POTASSIUM (test code = K/ABG) 4.4 MEQ/L 3.4-5.0 N [id number] 15:04:00* Test Item Value Reference Range Interpretation Comments CHLORIDE (test code = CL/ABG) MEQ/L 100-108 CREATININE [id number] 15:04:00* Test Item Value Reference Range Interpretation Comments CREATININE ABG (test code = CREAABG) mg/dL 0.6-1.0 [id number] 15:04:00* Test Item Value Reference Range Interpretation Comments HEMOGLOBIN (test code = HGB/ABG) G/DL 11.0-15.0 [id number] 15:04:00* Test Item Value Reference Range Interpretation Comments HEMATOCRIT (test code = HCT/ABG) 31 % 33.0-45.0 L POC IONIZED [id number] 15:04:00* Test Item Value Reference Range Interpretation Comments POC IONIZED CALCIUM (test code = POCCA) 1.12 MMOL/L 1.12-1.32 N POC [id number] 15:04:00* Test Item Value Reference Range Interpretation Comments POC GLUCOSE (test code = POCGLU) 154 MG/DL 70-110 H POC ARTERIAL BLOOD [id number] 15:04:00* Test Item Value Reference Range Interpretation Comments POC ARTERIAL BLOOD GAS PH (test code = POCPHA) 7.282 7.35-7. 45 LL POC ARTERIAL BLOOD GAS PCO2 (test code = ESRJHE9B) 55.2 mmHg 35. 0-45 HH POC TCO2 ARTERIAL (test code = POCTCO2) 27.8 POC ARTERIAL BLOOD GAS PO2 (test code = CPWNP1J) 480.5 mmHg 80-10 0.0 HH POC HCO3 ARTERIAL (test code = SRPURY3K) 26.1 MMOL/L 22.0-26.0 H POC BASE EXCESS (test code = POCBEA) -1.2 MMOL/L -4.0-4.0 N POC O2 SATURATION (test code = POCO2S) 100.0 % 90-100 N [id number] 15:04:00* Test Item Value Reference Range Interpretation Comments SODIUM (test code = NA/ABG) 139 MEQ/L 134-147 N [id number] 15:04:00* Test Item Value Reference Range Interpretation Comments POTASSIUM (test code = K/ABG) 4.4 MEQ/L 3.4-5.0 N [id number] 15:04:00* Test Item Value Reference Range Interpretation Comments CHLORIDE (test code = CL/ABG) MEQ/L 100-108 CREATININE [id number] 15:04:00* Test Item Value Reference Range Interpretation Comments CREATININE ABG (test code = CREAABG) mg/dL 0.6-1.0 [id number] 15:04:00* Test Item Value Reference Range Interpretation Comments HEMOGLOBIN (test code = HGB/ABG) 10.7 G/DL 11.0-15.0 L [id number] 15:04:00* Test Item Value Reference Range Interpretation Comments HEMATOCRIT (test code = HCT/ABG) 31 % 33.0-45.0 L POC IONIZED [id number] 15:04:00* Test Item Value Reference Range Interpretation Comments POC IONIZED CALCIUM (test code = POCCA) 1.12 MMOL/L 1.12-1.32 N POC [id number] 15:04:00* Test Item Value Reference Range Interpretation Comments POC GLUCOSE (test code = POCGLU) 154 MG/DL 70-110 H POC ARTERIAL BLOOD [id number] 15:04:00* Test Item Value Reference Range Interpretation Comments POC ARTERIAL BLOOD GAS PH (test code = POCPHA) 7.282 7.35-7. 45 LL POC ARTERIAL BLOOD GAS PCO2 (test code = RWPYUQ8B) 55.2 mmHg 35. 0-45 HH POC TCO2 ARTERIAL (test code = POCTCO2) 27.8 POC ARTERIAL BLOOD GAS PO2 (test code = PFGDW0H) 480.5 mmHg 80-10 0.0 HH POC HCO3 ARTERIAL (test code = HGUURJ4B) 26.1 MMOL/L 22.0-26.0 H POC BASE EXCESS (test code = POCBEA) -1.2 MMOL/L -4.0-4.0 N POC O2 SATURATION (test code = POCO2S) 100.0 % 90-100 N [id number] 15:04:00* Test Item Value Reference Range Interpretation Comments SODIUM (test code = NA/ABG) 139 MEQ/L 134-147 N [id number] 15:04:00* Test Item Value Reference Range Interpretation Comments POTASSIUM (test code = K/ABG) 4.4 MEQ/L 3.4-5.0 N [id number] 15:04:00* Test Item Value Reference Range Interpretation Comments CHLORIDE (test code = CL/ABG) 103 MEQ/L 100-108 N CREATININE [id number] 15:04:00* Test Item Value Reference Range Interpretation Comments CREATININE ABG (test code = CREAABG) mg/dL 0.6-1.0 [id number] 15:04:00* Test Item Value Reference Range Interpretation Comments HEMOGLOBIN (test code = HGB/ABG) 10.7 G/DL 11.0-15.0 L [id number] 15:04:00* Test Item Value Reference Range Interpretation Comments HEMATOCRIT (test code = HCT/ABG) 31 % 33.0-45.0 L POC IONIZED [id number] 15:04:00* Test Item Value Reference Range Interpretation Comments POC IONIZED CALCIUM (test code = POCCA) 1.12 MMOL/L 1.12-1.32 N POC [id number] 15:04:00* Test Item Value Reference Range Interpretation Comments POC GLUCOSE (test code = POCGLU) 154 MG/DL 70-110 H POC ARTERIAL BLOOD [id number] 15:04:00* Test Item Value Reference Range Interpretation Comments POC ARTERIAL BLOOD GAS PH (test code = POCPHA) 7.282 7.35-7. 45 LL POC ARTERIAL BLOOD GAS PCO2 (test code = YABWUB6Z) 55.2 mmHg 35. 0-45 HH POC TCO2 ARTERIAL (test code = POCTCO2) 27.8 POC ARTERIAL BLOOD GAS PO2 (test code = KXOZN7J) 480.5 mmHg 80-10 0.0 HH POC HCO3 ARTERIAL (test code = ORLYMI8A) 26.1 MMOL/L 22.0-26.0 H POC BASE EXCESS (test code = POCBEA) -1.2 MMOL/L -4.0-4.0 N POC O2 SATURATION (test code = POCO2S) 100.0 % 90-100 N [id number] 15:04:00* Test Item Value Reference Range Interpretation Comments SODIUM (test code = NA/ABG) 139 MEQ/L 134-147 N [id number] 15:04:00* Test Item Value Reference Range Interpretation Comments POTASSIUM (test code = K/ABG) 4.4 MEQ/L 3.4-5.0 N [id number] 15:04:00* Test Item Value Reference Range Interpretation Comments CHLORIDE (test code = CL/ABG) 103 MEQ/L 100-108 N CREATININE [id number] 15:04:00* Test Item Value Reference Range Interpretation Comments CREATININE ABG (test code = CREAABG) 0.9 mg/dL 0.6-1.0 N [id number] 15:04:00* Test Item Value Reference Range Interpretation Comments HEMOGLOBIN (test code = HGB/ABG) 10.7 G/DL 11.0-15.0 L [id number] 15:04:00* Test Item Value Reference Range Interpretation Comments HEMATOCRIT (test code = HCT/ABG) 31 % 33.0-45.0 L POC IONIZED [id number] 15:04:00* Test Item Value Reference Range Interpretation Comments POC IONIZED CALCIUM (test code = POCCA) 1.12 MMOL/L 1.12-1.32 N POC [id number] 15:04:00* Test Item Value Reference Range Interpretation Comments POC GLUCOSE (test code = POCGLU) 154 MG/DL 70-110 H POC ARTERIAL BLOOD [id number] 13:45:00* Test Item Value Reference Range Interpretation Comments POC ARTERIAL BLOOD GAS PH (test code = POCPHA) 7.481 7.35-7. 45 H POC ARTERIAL BLOOD GAS PCO2 (test code = TWNLLZ9U) 30.7 mmHg 35. 0-45 L POC TCO2 ARTERIAL (test code = POCTCO2) 23.8 POC ARTERIAL BLOOD GAS PO2 (test code = SSIFG3K) 575.4 mmHg 80-10 0.0 HH POC HCO3 ARTERIAL (test code = VBTGBZ9P) 22.9 MMOL/L 22.0-26.0 N POC BASE EXCESS (test code = POCBEA) 0.0 MMOL/L -4.0-4.0 N POC O2 SATURATION (test code = POCO2S) 100.0 % 90-100 N [id number] 13:45:00* Test Item Value Reference Range Interpretation Comments SODIUM (test code = NA/ABG) MEQ/L 134-147 [id number] 13:45:00* Test Item Value Reference Range Interpretation Comments POTASSIUM (test code = K/ABG) MEQ/L 3.4-5.0 [id number] 13:45:00* Test Item Value Reference Range Interpretation Comments CHLORIDE (test code = CL/ABG) MEQ/L 100-108 CREATININE [id number] 13:45:00* Test Item Value Reference Range Interpretation Comments CREATININE ABG (test code = CREAABG) mg/dL 0.6-1.0 [id number] 13:45:00* Test Item Value Reference Range Interpretation Comments HEMOGLOBIN (test code = HGB/ABG) G/DL 11.0-15.0 [id number] 13:45:00* Test Item Value Reference Range Interpretation Comments HEMATOCRIT (test code = HCT/ABG) % 33.0-45.0 POC IONIZED [id number] 13:45:00* Test Item Value Reference Range Interpretation Comments POC IONIZED CALCIUM (test code = POCCA) MMOL/L 1.12-1.32 POC [id number] 13:45:00* Test Item Value Reference Range Interpretation Comments POC GLUCOSE (test code = POCGLU) MG/DL 70-110 POC ARTERIAL BLOOD [id number] 13:45:00* Test Item Value Reference Range Interpretation Comments POC ARTERIAL BLOOD GAS PH (test code = POCPHA) 7.481 7.35-7. 45 H POC ARTERIAL BLOOD GAS PCO2 (test code = HYJJDR3P) 30.7 mmHg 35. 0-45 L POC TCO2 ARTERIAL (test code = POCTCO2) 23.8 POC ARTERIAL BLOOD GAS PO2 (test code = UJIHQ9Z) 575.4 mmHg 80-10 0.0 HH POC HCO3 ARTERIAL (test code = KTTYLI2W) 22.9 MMOL/L 22.0-26.0 N POC BASE EXCESS (test code = POCBEA) 0.0 MMOL/L -4.0-4.0 N POC O2 SATURATION (test code = POCO2S) 100.0 % 90-100 N [id number] 13:45:00* Test Item Value Reference Range Interpretation Comments SODIUM (test code = NA/ABG) 139 MEQ/L 134-147 N [id number] 13:45:00* Test Item Value Reference Range Interpretation Comments POTASSIUM (test code = K/ABG) MEQ/L 3.4-5.0 [id number] 13:45:00* Test Item Value Reference Range Interpretation Comments CHLORIDE (test code = CL/ABG) MEQ/L 100-108 CREATININE [id number] 13:45:00* Test Item Value Reference Range Interpretation Comments CREATININE ABG (test code = CREAABG) mg/dL 0.6-1.0 [id number] 13:45:00* Test Item Value Reference Range Interpretation Comments HEMOGLOBIN (test code = HGB/ABG) G/DL 11.0-15.0 [id number] 13:45:00* Test Item Value Reference Range Interpretation Comments HEMATOCRIT (test code = HCT/ABG) % 33.0-45.0 POC IONIZED [id number] 13:45:00* Test Item Value Reference Range Interpretation Comments POC IONIZED CALCIUM (test code = POCCA) MMOL/L 1.12-1.32 POC [id number] 13:45:00* Test Item Value Reference Range Interpretation Comments POC GLUCOSE (test code = POCGLU) MG/DL 70-110 POC ARTERIAL BLOOD [id number] 13:45:00* Test Item Value Reference Range Interpretation Comments POC ARTERIAL BLOOD GAS PH (test code = POCPHA) 7.481 7.35-7. 45 H POC ARTERIAL BLOOD GAS PCO2 (test code = LYJYSK9Z) 30.7 mmHg 35. 0-45 L POC TCO2 ARTERIAL (test code = POCTCO2) 23.8 POC ARTERIAL BLOOD GAS PO2 (test code = GVEAE6H) 575.4 mmHg 80-10 0.0 HH POC HCO3 ARTERIAL (test code = FWXZUK9S) 22.9 MMOL/L 22.0-26.0 N POC BASE EXCESS (test code = POCBEA) 0.0 MMOL/L -4.0-4.0 N POC O2 SATURATION (test code = POCO2S) 100.0 % 90-100 N [id number] 13:45:00* Test Item Value Reference Range Interpretation Comments SODIUM (test code = NA/ABG) 139 MEQ/L 134-147 N [id number] 13:45:00* Test Item Value Reference Range Interpretation Comments POTASSIUM (test code = K/ABG) 4.5 MEQ/L 3.4-5.0 N [id number] 13:45:00* Test Item Value Reference Range Interpretation Comments CHLORIDE (test code = CL/ABG) MEQ/L 100-108 CREATININE [id number] 13:45:00* Test Item Value Reference Range Interpretation Comments CREATININE ABG (test code = CREAABG) mg/dL 0.6-1.0 [id number] 13:45:00* Test Item Value Reference Range Interpretation Comments HEMOGLOBIN (test code = HGB/ABG) G/DL 11.0-15.0 [id number] 13:45:00* Test Item Value Reference Range Interpretation Comments HEMATOCRIT (test code = HCT/ABG) % 33.0-45.0 POC IONIZED [id number] 13:45:00* Test Item Value Reference Range Interpretation Comments POC IONIZED CALCIUM (test code = POCCA) MMOL/L 1.12-1.32 POC [id number] 13:45:00* Test Item Value Reference Range Interpretation Comments POC GLUCOSE (test code = POCGLU) MG/DL 70-110 POC ARTERIAL BLOOD [id number] 13:45:00* Test Item Value Reference Range Interpretation Comments POC ARTERIAL BLOOD GAS PH (test code = POCPHA) 7.481 7.35-7. 45 H POC ARTERIAL BLOOD GAS PCO2 (test code = PZOKVQ9W) 30.7 mmHg 35. 0-45 L POC TCO2 ARTERIAL (test code = POCTCO2) 23.8 POC ARTERIAL BLOOD GAS PO2 (test code = UGYZB4I) 575.4 mmHg 80-10 0.0 HH POC HCO3 ARTERIAL (test code = ENGLAT1N) 22.9 MMOL/L 22.0-26.0 N POC BASE EXCESS (test code = POCBEA) 0.0 MMOL/L -4.0-4.0 N POC O2 SATURATION (test code = POCO2S) 100.0 % 90-100 N [id number] 13:45:00* Test Item Value Reference Range Interpretation Comments SODIUM (test code = NA/ABG) 139 MEQ/L 134-147 N [id number] 13:45:00* Test Item Value Reference Range Interpretation Comments POTASSIUM (test code = K/ABG) 4.5 MEQ/L 3.4-5.0 N [id number] 13:45:00* Test Item Value Reference Range Interpretation Comments CHLORIDE (test code = CL/ABG) MEQ/L 100-108 CREATININE [id number] 13:45:00* Test Item Value Reference Range Interpretation Comments CREATININE ABG (test code = CREAABG) mg/dL 0.6-1.0 [id number] 13:45:00* Test Item Value Reference Range Interpretation Comments HEMOGLOBIN (test code = HGB/ABG) G/DL 11.0-15.0 [id number] 13:45:00* Test Item Value Reference Range Interpretation Comments HEMATOCRIT (test code = HCT/ABG) % 33.0-45.0 POC IONIZED [id number] 13:45:00* Test Item Value Reference Range Interpretation Comments POC IONIZED CALCIUM (test code = POCCA) 1.11 MMOL/L 1.12-1.32 L POC [id number] 13:45:00* Test Item Value Reference Range Interpretation Comments POC GLUCOSE (test code = POCGLU) MG/DL 70-110 POC ARTERIAL BLOOD [id number] 13:45:00* Test Item Value Reference Range Interpretation Comments POC ARTERIAL BLOOD GAS PH (test code = POCPHA) 7.481 7.35-7. 45 H POC ARTERIAL BLOOD GAS PCO2 (test code = XYOADP7X) 30.7 mmHg 35. 0-45 L POC TCO2 ARTERIAL (test code = POCTCO2) 23.8 POC ARTERIAL BLOOD GAS PO2 (test code = OMMYI2H) 575.4 mmHg 80-10 0.0 HH POC HCO3 ARTERIAL (test code = UNRYPW5H) 22.9 MMOL/L 22.0-26.0 N POC BASE EXCESS (test code = POCBEA) 0.0 MMOL/L -4.0-4.0 N POC O2 SATURATION (test code = POCO2S) 100.0 % 90-100 N [id number] 13:45:00* Test Item Value Reference Range Interpretation Comments SODIUM (test code = NA/ABG) 139 MEQ/L 134-147 N [id number] 13:45:00* Test Item Value Reference Range Interpretation Comments POTASSIUM (test code = K/ABG) 4.5 MEQ/L 3.4-5.0 N [id number] 13:45:00* Test Item Value Reference Range Interpretation Comments CHLORIDE (test code = CL/ABG) MEQ/L 100-108 CREATININE [id number] 13:45:00* Test Item Value Reference Range Interpretation Comments CREATININE ABG (test code = CREAABG) mg/dL 0.6-1.0 [id number] 13:45:00* Test Item Value Reference Range Interpretation Comments HEMOGLOBIN (test code = HGB/ABG) G/DL 11.0-15.0 [id number] 13:45:00* Test Item Value Reference Range Interpretation Comments HEMATOCRIT (test code = HCT/ABG) % 33.0-45.0 POC IONIZED [id number] 13:45:00* Test Item Value Reference Range Interpretation Comments POC IONIZED CALCIUM (test code = POCCA) 1.11 MMOL/L 1.12-1.32 L POC [id number] 13:45:00* Test Item Value Reference Range Interpretation Comments POC GLUCOSE (test code = POCGLU) 126 MG/DL 70-110 H POC ARTERIAL BLOOD [id number] 13:45:00* Test Item Value Reference Range Interpretation Comments POC ARTERIAL BLOOD GAS PH (test code = POCPHA) 7.481 7.35-7. 45 H POC ARTERIAL BLOOD GAS PCO2 (test code = MJDJSW0K) 30.7 mmHg 35. 0-45 L POC TCO2 ARTERIAL (test code = POCTCO2) 23.8 POC ARTERIAL BLOOD GAS PO2 (test code = HQBHU8Y) 575.4 mmHg 80-10 0.0 HH POC HCO3 ARTERIAL (test code = GWALHJ2F) 22.9 MMOL/L 22.0-26.0 N POC BASE EXCESS (test code = POCBEA) 0.0 MMOL/L -4.0-4.0 N POC O2 SATURATION (test code = POCO2S) 100.0 % 90-100 N [id number] 13:45:00* Test Item Value Reference Range Interpretation Comments SODIUM (test code = NA/ABG) 139 MEQ/L 134-147 N [id number] 13:45:00* Test Item Value Reference Range Interpretation Comments POTASSIUM (test code = K/ABG) 4.5 MEQ/L 3.4-5.0 N [id number] 13:45:00* Test Item Value Reference Range Interpretation Comments CHLORIDE (test code = CL/ABG) MEQ/L 100-108 CREATININE [id number] 13:45:00* Test Item Value Reference Range Interpretation Comments CREATININE ABG (test code = CREAABG) mg/dL 0.6-1.0 [id number] 13:45:00* Test Item Value Reference Range Interpretation Comments HEMOGLOBIN (test code = HGB/ABG) G/DL 11.0-15.0 [id number] 13:45:00* Test Item Value Reference Range Interpretation Comments HEMATOCRIT (test code = HCT/ABG) 33 % 33.0-45.0 N POC IONIZED [id number] 13:45:00* Test Item Value Reference Range Interpretation Comments POC IONIZED CALCIUM (test code = POCCA) 1.11 MMOL/L 1.12-1.32 L POC [id number] 13:45:00* Test Item Value Reference Range Interpretation Comments POC GLUCOSE (test code = POCGLU) 126 MG/DL 70-110 H POC ARTERIAL BLOOD [id number] 13:45:00* Test Item Value Reference Range Interpretation Comments POC ARTERIAL BLOOD GAS PH (test code = POCPHA) 7.481 7.35-7. 45 H POC ARTERIAL BLOOD GAS PCO2 (test code = BUFCMW0X) 30.7 mmHg 35. 0-45 L POC TCO2 ARTERIAL (test code = POCTCO2) 23.8 POC ARTERIAL BLOOD GAS PO2 (test code = BIGAR4A) 575.4 mmHg 80-10 0.0 HH POC HCO3 ARTERIAL (test code = JBLUGT4Q) 22.9 MMOL/L 22.0-26.0 N POC BASE EXCESS (test code = POCBEA) 0.0 MMOL/L -4.0-4.0 N POC O2 SATURATION (test code = POCO2S) 100.0 % 90-100 N [id number] 13:45:00* Test Item Value Reference Range Interpretation Comments SODIUM (test code = NA/ABG) 139 MEQ/L 134-147 N [id number] 13:45:00* Test Item Value Reference Range Interpretation Comments POTASSIUM (test code = K/ABG) 4.5 MEQ/L 3.4-5.0 N [id number] 13:45:00* Test Item Value Reference Range Interpretation Comments CHLORIDE (test code = CL/ABG) MEQ/L 100-108 CREATININE [id number] 13:45:00* Test Item Value Reference Range Interpretation Comments CREATININE ABG (test code = CREAABG) mg/dL 0.6-1.0 [id number] 13:45:00* Test Item Value Reference Range Interpretation Comments HEMOGLOBIN (test code = HGB/ABG) 11.3 G/DL 11.0-15.0 N [id number] 13:45:00* Test Item Value Reference Range Interpretation Comments HEMATOCRIT (test code = HCT/ABG) 33 % 33.0-45.0 N POC IONIZED [id number] 13:45:00* Test Item Value Reference Range Interpretation Comments POC IONIZED CALCIUM (test code = POCCA) 1.11 MMOL/L 1.12-1.32 L POC [id number] 13:45:00* Test Item Value Reference Range Interpretation Comments POC GLUCOSE (test code = POCGLU) 126 MG/DL 70-110 H POC ARTERIAL BLOOD [id number] 13:45:00* Test Item Value Reference Range Interpretation Comments POC ARTERIAL BLOOD GAS PH (test code = POCPHA) 7.481 7.35-7. 45 H POC ARTERIAL BLOOD GAS PCO2 (test code = BGHJRU6I) 30.7 mmHg 35. 0-45 L POC TCO2 ARTERIAL (test code = POCTCO2) 23.8 POC ARTERIAL BLOOD GAS PO2 (test code = EZZCR9Y) 575.4 mmHg 80-10 0.0 HH POC HCO3 ARTERIAL (test code = EUGSWH4K) 22.9 MMOL/L 22.0-26.0 N POC BASE EXCESS (test code = POCBEA) 0.0 MMOL/L -4.0-4.0 N POC O2 SATURATION (test code = POCO2S) 100.0 % 90-100 N [id number] 13:45:00* Test Item Value Reference Range Interpretation Comments SODIUM (test code = NA/ABG) 139 MEQ/L 134-147 N [id number] 13:45:00* Test Item Value Reference Range Interpretation Comments POTASSIUM (test code = K/ABG) 4.5 MEQ/L 3.4-5.0 N [id number] 13:45:00* Test Item Value Reference Range Interpretation Comments CHLORIDE (test code = CL/ABG) 106 MEQ/L 100-108 N CREATININE [id number] 13:45:00* Test Item Value Reference Range Interpretation Comments CREATININE ABG (test code = CREAABG) mg/dL 0.6-1.0 [id number] 13:45:00* Test Item Value Reference Range Interpretation Comments HEMOGLOBIN (test code = HGB/ABG) 11.3 G/DL 11.0-15.0 N [id number] 13:45:00* Test Item Value Reference Range Interpretation Comments HEMATOCRIT (test code = HCT/ABG) 33 % 33.0-45.0 N POC IONIZED [id number] 13:45:00* Test Item Value Reference Range Interpretation Comments POC IONIZED CALCIUM (test code = POCCA) 1.11 MMOL/L 1.12-1.32 L POC [id number] 13:45:00* Test Item Value Reference Range Interpretation Comments POC GLUCOSE (test code = POCGLU) 126 MG/DL 70-110 H POC ARTERIAL BLOOD [id number] 13:45:00* Test Item Value Reference Range Interpretation Comments POC ARTERIAL BLOOD GAS PH (test code = POCPHA) 7.481 7.35-7. 45 H POC ARTERIAL BLOOD GAS PCO2 (test code = LWCCOV4W) 30.7 mmHg 35. 0-45 L POC TCO2 ARTERIAL (test code = POCTCO2) 23.8 POC ARTERIAL BLOOD GAS PO2 (test code = ZTQKX6F) 575.4 mmHg 80-10 0.0 HH POC HCO3 ARTERIAL (test code = IFMMPL2C) 22.9 MMOL/L 22.0-26.0 N POC BASE EXCESS (test code = POCBEA) 0.0 MMOL/L -4.0-4.0 N POC O2 SATURATION (test code = POCO2S) 100.0 % 90-100 N [id number] 13:45:00* Test Item Value Reference Range Interpretation Comments SODIUM (test code = NA/ABG) 139 MEQ/L 134-147 N [id number] 13:45:00* Test Item Value Reference Range Interpretation Comments POTASSIUM (test code = K/ABG) 4.5 MEQ/L 3.4-5.0 N [id number] 13:45:00* Test Item Value Reference Range Interpretation Comments CHLORIDE (test code = CL/ABG) 106 MEQ/L 100-108 N CREATININE [id number] 13:45:00* Test Item Value Reference Range Interpretation Comments CREATININE ABG (test code = CREAABG) 0.9 mg/dL 0.6-1.0 N [id number] 13:45:00* Test Item Value Reference Range Interpretation Comments HEMOGLOBIN (test code = HGB/ABG) 11.3 G/DL 11.0-15.0 N [id number] 13:45:00* Test Item Value Reference Range Interpretation Comments HEMATOCRIT (test code = HCT/ABG) 33 % 33.0-45.0 N POC IONIZED [id number] 13:45:00* Test Item Value Reference Range Interpretation Comments POC IONIZED CALCIUM (test code = POCCA) 1.11 MMOL/L 1.12-1.32 L POC [id number] 13:45:00* Test Item Value Reference Range Interpretation Comments POC GLUCOSE (test code = POCGLU) 126 MG/DL 70-110 H B-TYPE NATRIURETIC [id number] 06:59:00* Test Item Value Reference Range Interpretation Comments B-TYPE NATRIURETIC PEPTIDE (test code = BNP) 2.4 PG/ML 0-100 N COMPREHENSIVE METABOLIC [id number] 06:56:00* Test Item Value Reference Range Interpretation Comments SODIUM (test code = NA) 137 mEq/L 134-147 N POTASSIUM (test code = K) 4.3 mEq/L 3.4-5.0 N CHLORIDE (test code = CL) 103 mEq/L 100-108 N CARBON DIOXIDE (test code = CO2) 26 mEq/L 21-33 N ANION GAP (test code = GAP) 12 0-20 N GLUCOSE (test code = GLU) 100 mg/dL 70-110 N BLOOD UREA NITROGEN (test code = BUN) 25 mg/dL 7-18 H GLOMERULAR FILTRATION RATE (test code = GFR) 48.4 95-105 L Units of measure = ml/min/1.73 m2 CREATININE (test code = CREAT) 1.4 mg/dL 0.6-1.3 H TOTAL PROTEIN (test code = PROT) 8.9 g/dL 6.4-8.2 H ALBUMIN (test code = ALB) 3.80 g/dL 3.4-5.0 N CALCIUM (test code = CA) 9.6 mg/dL 8.0-10.5 N BILIRUBIN TOTAL (test code = BILT) 0.4 MG/DL <1.5 N SGOT/AST (test code = AST) 15 IUnit/L 15-37 N SGPT/ALT (test code = ALT) 24 IUnit/L 15-65 N ALKALINE PHOSPHATASE TOTAL (test code = ALKP) 55 IUnit/L 20-125 N LIPID PROFILE (CORONARY RISK)2019-06-03 06:56:00* Test Item Value Reference Range Interpretation Comments TRIGLYCERIDES (test code = TRIG) 99 mg/dL 40-150 N CHOLESTEROL (test code = CHOL) 135 mg/dL <200 CHOLESTEROL/HDL RATIO (test code = CHOLHDL) 2.55 RATIO 3.27-4.44 L RISK ASSOCIATED WITH CHOL/HDL RATIOS: RISK MALE FEMALE1/2 AVERAGE 3.43 3.27AVERAGE 4.97 4.442X AVERAGE 9.55 7.053X AVERAGE 23.39 11.04 NOTE THAT THE REFERENCE VALUE IS RELATEDTO RISK LEVELS RECOMMENDED BY THE NATL.HEART, LUNG, AND BLOOD INST. HDL CHOLESTEROL (test code = HDL) 53.0 mg/dL 39-96 N LIPOPROTEIN LDL (test code = LDL) 66 mg/dL 0-100 N <100 [id number] NEAR OPTIMAL/ABOVE [id number] HIGH>LF=703 VERY HIGH*Guidelines provided by the National Cholesterol EducationProgram Adult Treatment Panel III COMPREHENSIVE METABOLIC [id number] 06:52:00* Test Item Value Reference Range Interpretation Comments SODIUM (test code = NA) 137 mEq/L 134-147 N POTASSIUM (test code = K) 4.3 mEq/L 3.4-5.0 N CHLORIDE (test code = CL) 103 mEq/L 100-108 N CARBON DIOXIDE (test code = CO2) 26 mEq/L 21-33 N ANION GAP (test code = GAP) 12 0-20 N GLUCOSE (test code = GLU) 100 mg/dL 70-110 N BLOOD UREA NITROGEN (test code = BUN) 25 mg/dL 7-18 H GLOMERULAR FILTRATION RATE (test code = GFR) 95-105 CREATININE (test code = CREAT) mg/dL 0.6-1.3 TOTAL PROTEIN (test code = PROT) g/dL 6.4-8.2 ALBUMIN (test code = ALB) 3.80 g/dL 3.4-5.0 N CALCIUM (test code = CA) 9.6 mg/dL 8.0-10.5 N BILIRUBIN TOTAL (test code = BILT) MG/DL <1.5 SGOT/AST (test code = AST) IUnit/L 15-37 SGPT/ALT (test code = ALT) IUnit/L 15-65 ALKALINE PHOSPHATASE TOTAL (test code = ALKP) IUnit/L 20-125 LIPID PROFILE (CORONARY RISK)2019-06-03 06:52:00* Test Item Value Reference Range Interpretation Comments TRIGLYCERIDES (test code = TRIG) mg/dL 40-150 CHOLESTEROL (test code = CHOL) mg/dL <200 CHOLESTEROL/HDL RATIO (test code = CHOLHDL) RATIO 3.27-4.44 HDL CHOLESTEROL (test code = HDL) mg/dL 39-96 LIPOPROTEIN LDL (test code = LDL) mg/dL 0-100 HGBA1C%2019-06-03 06:41:00* Test Item Value Reference Range Interpretation Comments HGBA1C% (test code = HGBA1C%) 5.4 %A1C 4.8-6.0 N PROTHROMBIN [id number] 06:32:00* Test Item Value Reference Range Interpretation Comments PROTHROMBIN TIME PATIENT (test code = PTP) 13.4 SECONDS 9.3-12.9 H INTERNATIONAL NORMAL RATIO (test code = INR) 1.2 0.8-1.2 N TARGET INR BY INDICATION Indication INR1. Prophylaxis of venous thrombosis 2.0 - 3.0 (orthopedic surgery), Prophylaxis of venous thrombosis (other than high-risk surgery), Treatment of Deep Vein Thrombosis/Pulmonary Embolism, Prevention of systemic embolism - Tissue heart valves, Acute Myocardial Infarction (to prevent systemic embolism), Valvular heart disease, Atrial Fibrillation, Bileaflet mechanical valve in aortic position.2. Mechanical prosthetic valves (high risk), 2.5 - 3.5 Presence of Lupus Anticoagulant or Antiphospholipid Antibodies, Prevention of systemic embolism - Acute Myocardial Infarction (to prevent recurrent infarct). THROMBOPLASTIN TIME [id number] 06:32:00* Test Item Value Reference Range Interpretation Comments THROMBOPLASTIN TIME PARTIAL (test code = PTT) 58.7 Seconds 25.0-39. 5 H Therapeutic Range: 50.4 - 88.3 Seconds Effective 10/08/2018 CBC W/AUTO [id number] 06:20:00* Test Item Value Reference Range Interpretation Comments WHITE BLOOD CELL (test code = WBC) 8.34 x10 3/uL 4.5-11.0 N RED BLOOD CELL (test code = RBC) 3.67 x10 6/uL 3.54-5.02 N HEMOGLOBIN (test code = HGB) 12.4 g/dL 11.0-15.0 N HEMATOCRIT (test code = HCT) 36.4 % 33.0-45.0 N MEAN CELL VOLUME (test code = MCV) 99.2 fL 81.0-99.0 H MEAN CELL HGB (test code = MCH) 33.8 pg 27.0-33.0 H MEAN CELL HGB CONCETRATION (test code = MCHC) 34.1 g/dL 33.0-37. 0 N RED CELL DISTRIBUTION WIDTH CV (test code = RDW) 11.9 % 11.5- 14.5 N RED CELL DISTRIBUTION WIDTH SD (test code = RDW-SD) 43.0 fL 37 .0-54.0 N PLATELET COUNT (test code = PLT) 291 x10 3/uL 150-400 N MEAN PLATELET VOLUME (test code = MPV) 9.9 fL 7.0-9.0 H NEUTROPHIL % (test code = NT%) 42.7 % 56.0-77.0 L IMMATURE GRANULOCYTE % (test code = IG%) 0.1 % 0.0-2.0 N LYMPHOCYTE % (test code = LY%) 47.1 % 14.0-32.0 H MONOCYTE % (test code = MO%) 8.2 % 4.8-9.0 N EOSINOPHIL % (test code = EO%) 1.8 % 0.3-3.7 N BASOPHIL % (test code = BA%) 0.1 % 0.0-2.0 N NUCLEATED RBC % (test code = NRBC%) 0.0 % 0-0 N NEUTROPHIL # (test code = NT#) 3.56 x10 3/uL 2.0-7.6 N IMMATURE GRANULOCYTE # (test code = IG#) 0.01 x10 3/uL 0.00-0.03 N LYMPHOCYTE # (test code = LY#) 3.93 x10 3/uL 1.0-3.8 H MONOCYTE # (test code = MO#) 0.68 x10 3/uL 0.1-0.8 N EOSINOPHIL # (test code = EO#) 0.15 x10 3/uL 0.0-0.2 N BASOPHIL # (test code = BA#) 0.01 x10 3/uL 0.0-0.2 N NUCLEATED RBC # (test code = NRBC#) 0.00 x10 3/uL 0.0-0.1 N MANUAL DIFF REQUIRED (test code = MDIFF) NO URINALYSIS [id number] 05:01:00* Test Item Value Reference Range Interpretation Comments UA COLOR (test code = COLU) YELLOW YEL/STRAW UA APPEARANCE (test code = APPU) CLEAR CLEAR UA GLUCOSE DIPSTICK (test code = DGLUU) NEGATIVE NEGATIVE UA BILIRUBIN DIPSTICK (test code = BILU) NEGATIVE NEGATIVE UA KETONE DIPSTICK (test code = KETU) NEGATIVE NEGATIVE UA SPECIFIC GRAVITY (test code = SGU) 1.011 1.005-1.030 N UA BLOOD DIPSTICK (test code = DARREN) NEGATIVE NEGATIVE UA PH DIPSTICK (test code = LUBA) 6.0 5.0-7.0 N UA PROTEIN DIPSTICK (test code = PROU) NEGATIVE NEGATIVE UA UROBILINIOGEN DIPSTICK (test code = URO) 0.2 mg/dL 0.2-1.0 UA NITRITE DIPSTICK (test code = SHAD) NEGATIVE NEGATIVE UA LEUKOCYTE ESTERASE DIPSTICK (test code = LEUU) NEGATIVE NEGA TIVE UA RBC (test code = RBCU) 0-3 RBC/HPF 0-3 UA WBC NO REFLEX (test code = WBCUCL) 0-3 WBC/HPF 0-3 UA BACTERIA (test code = BACU) TRACE /HPF NONE SEEN UA SQUAMOUS CELLS (test code = SQU) 0-5 /HPF NONE SEEN UA HYALINE CAST (test code = HYALU) 3-5 /LPF NONE SEEN UA MUCUS (test code = MUCU) TRACE /LPF NONE SEEN THROMBOPLASTIN TIME [id number] 05:59:00* Test Item Value Reference Range Interpretation Comments THROMBOPLASTIN TIME PARTIAL (test code = PTT) 56.3 Seconds 25.0-39. 5 H Therapeutic Range: 50.4 - 88.3 Seconds Effective 10/08/2018 CBC W/AUTO [id number] 05:40:00* Test Item Value Reference Range Interpretation Comments WHITE BLOOD CELL (test code = WBC) 6.81 x10 3/uL 4.5-11.0 N RED BLOOD CELL (test code = RBC) 3.47 x10 6/uL 3.54-5.02 L HEMOGLOBIN (test code = HGB) 11.8 g/dL 11.0-15.0 N HEMATOCRIT (test code = HCT) 34.2 % 33.0-45.0 N MEAN CELL VOLUME (test code = MCV) 98.6 fL 81.0-99.0 N MEAN CELL HGB (test code = MCH) 34.0 pg 27.0-33.0 H MEAN CELL HGB CONCETRATION (test code = MCHC) 34.5 g/dL 33.0-37. 0 N RED CELL DISTRIBUTION WIDTH CV (test code = RDW) 11.9 % 11.5- 14.5 N RED CELL DISTRIBUTION WIDTH SD (test code = RDW-SD) 43.0 fL 37 .0-54.0 N PLATELET COUNT (test code = PLT) 283 x10 3/uL 150-400 N MEAN PLATELET VOLUME (test code = MPV) 9.7 fL 7.0-9.0 H NEUTROPHIL % (test code = NT%) 45.0 % 56.0-77.0 L IMMATURE GRANULOCYTE % (test code = IG%) 0.3 % 0.0-2.0 N LYMPHOCYTE % (test code = LY%) 43.8 % 14.0-32.0 H MONOCYTE % (test code = MO%) 7.8 % 4.8-9.0 N EOSINOPHIL % (test code = EO%) 2.8 % 0.3-3.7 N BASOPHIL % (test code = BA%) 0.3 % 0.0-2.0 N NUCLEATED RBC % (test code = NRBC%) 0.0 % 0-0 N NEUTROPHIL # (test code = NT#) 3.07 x10 3/uL 2.0-7.6 N IMMATURE GRANULOCYTE # (test code = IG#) 0.02 x10 3/uL 0.00-0.03 N LYMPHOCYTE # (test code = LY#) 2.98 x10 3/uL 1.0-3.8 N MONOCYTE # (test code = MO#) 0.53 x10 3/uL 0.1-0.8 N EOSINOPHIL # (test code = EO#) 0.19 x10 3/uL 0.0-0.2 N BASOPHIL # (test code = BA#) 0.02 x10 3/uL 0.0-0.2 N NUCLEATED RBC # (test code = NRBC#) 0.00 x10 3/uL 0.0-0.1 N MANUAL DIFF REQUIRED (test code = MDIFF) NO COMMENTS: Daily while on HeparinCBC W/AUTO [id number] 07:38:00* Test Item Value Reference Range Interpretation Comments WHITE BLOOD CELL (test code = WBC) 7.15 x10 3/uL 4.5-11.0 N RED BLOOD CELL (test code = RBC) 3.25 x10 6/uL 3.54-5.02 L HEMOGLOBIN (test code = HGB) 11.1 g/dL 11.0-15.0 N HEMATOCRIT (test code = HCT) 32.6 % 33.0-45.0 L MEAN CELL VOLUME (test code = MCV) 100.3 fL 81.0-99.0 H MEAN CELL HGB (test code = MCH) 34.2 pg 27.0-33.0 H MEAN CELL HGB CONCETRATION (test code = MCHC) 34.0 g/dL 33.0-37. 0 N RED CELL DISTRIBUTION WIDTH CV (test code = RDW) 11.9 % 11.5- 14.5 N RED CELL DISTRIBUTION WIDTH SD (test code = RDW-SD) 43.8 fL 37 .0-54.0 N PLATELET COUNT (test code = PLT) 295 x10 3/uL 150-400 N MEAN PLATELET VOLUME (test code = MPV) 9.9 fL 7.0-9.0 H NEUTROPHIL % (test code = NT%) 42.4 % 56.0-77.0 L IMMATURE GRANULOCYTE % (test code = IG%) 0.3 % 0.0-2.0 N LYMPHOCYTE % (test code = LY%) 44.8 % 14.0-32.0 H MONOCYTE % (test code = MO%) 9.7 % 4.8-9.0 H EOSINOPHIL % (test code = EO%) 2.5 % 0.3-3.7 N BASOPHIL % (test code = BA%) 0.3 % 0.0-2.0 N NUCLEATED RBC % (test code = NRBC%) 0.0 % 0-0 N NEUTROPHIL # (test code = NT#) 3.04 x10 3/uL 2.0-7.6 N IMMATURE GRANULOCYTE # (test code = IG#) 0.02 x10 3/uL 0.00-0.03 N LYMPHOCYTE # (test code = LY#) 3.20 x10 3/uL 1.0-3.8 N MONOCYTE # (test code = MO#) 0.69 x10 3/uL 0.1-0.8 N EOSINOPHIL # (test code = EO#) 0.18 x10 3/uL 0.0-0.2 N BASOPHIL # (test code = BA#) 0.02 x10 3/uL 0.0-0.2 N NUCLEATED RBC # (test code = NRBC#) 0.00 x10 3/uL 0.0-0.1 N MANUAL DIFF REQUIRED (test code = MDIFF) NO COMMENTS: Daily while on HeparinTHROMBOPLASTIN TIME [id number] 07:04:00* Test Item Value Reference Range Interpretation Comments THROMBOPLASTIN TIME PARTIAL (test code = PTT) 73.7 Seconds 25.0-39. 5 H Therapeutic Range: 50.4 - 88.3 Seconds Effective 10/08/2018 THROMBOPLASTIN TIME [id number] 16:41:00* Test Item Value Reference Range Interpretation Comments THROMBOPLASTIN TIME PARTIAL (test code = PTT) 72.3 Seconds 25.0-39. 5 H Therapeutic Range: 50.4 - 88.3 Seconds Effective 10/08/2018 BASIC METABOLIC [id number] 14:57:00* Test Item Value Reference Range Interpretation Comments SODIUM (test code = NA) 138 mEq/L 134-147 N POTASSIUM (test code = K) 3.9 mEq/L 3.4-5.0 N CHLORIDE (test code = CL) 104 mEq/L 100-108 N CARBON DIOXIDE (test code = CO2) 29 mEq/L 21-33 N ANION GAP (test code = GAP) 9 0-20 N GLUCOSE (test code = GLU) 124 mg/dL 70-110 H BLOOD UREA NITROGEN (test code = BUN) 18 mg/dL 7-18 N GLOMERULAR FILTRATION RATE (test code = GFR) 63.9 95-105 L Units of measure = ml/min/1.73 m2 CREATININE (test code = CREAT) 1.1 mg/dL 0.6-1.3 N CALCIUM (test code = CA) 8.7 mg/dL 8.0-10.5 N CBC W/AUTO [id number] 14:52:00* Test Item Value Reference Range Interpretation Comments WHITE BLOOD CELL (test code = WBC) 6.02 x10 3/uL 4.5-11.0 N RED BLOOD CELL (test code = RBC) 3.49 x10 6/uL 3.54-5.02 L HEMOGLOBIN (test code = HGB) 11.8 g/dL 11.0-15.0 N HEMATOCRIT (test code = HCT) 34.4 % 33.0-45.0 N MEAN CELL VOLUME (test code = MCV) 98.6 fL 81.0-99.0 N MEAN CELL HGB (test code = MCH) 33.8 pg 27.0-33.0 H MEAN CELL HGB CONCETRATION (test code = MCHC) 34.3 g/dL 33.0-37. 0 N RED CELL DISTRIBUTION WIDTH CV (test code = RDW) 11.9 % 11.5- 14.5 N RED CELL DISTRIBUTION WIDTH SD (test code = RDW-SD) 42.9 fL 37 .0-54.0 N PLATELET COUNT (test code = PLT) 297 x10 3/uL 150-400 N MEAN PLATELET VOLUME (test code = MPV) 9.5 fL 7.0-9.0 H NEUTROPHIL % (test code = NT%) 40.8 % 56.0-77.0 L IMMATURE GRANULOCYTE % (test code = IG%) 0.2 % 0.0-2.0 N LYMPHOCYTE % (test code = LY%) 47.5 % 14.0-32.0 H MONOCYTE % (test code = MO%) 8.0 % 4.8-9.0 N EOSINOPHIL % (test code = EO%) 3.2 % 0.3-3.7 N BASOPHIL % (test code = BA%) 0.3 % 0.0-2.0 N NUCLEATED RBC % (test code = NRBC%) 0.0 % 0-0 N NEUTROPHIL # (test code = NT#) 2.46 x10 3/uL 2.0-7.6 N IMMATURE GRANULOCYTE # (test code = IG#) 0.01 x10 3/uL 0.00-0.03 N LYMPHOCYTE # (test code = LY#) 2.86 x10 3/uL 1.0-3.8 N MONOCYTE # (test code = MO#) 0.48 x10 3/uL 0.1-0.8 N EOSINOPHIL # (test code = EO#) 0.19 x10 3/uL 0.0-0.2 N BASOPHIL # (test code = BA#) 0.02 x10 3/uL 0.0-0.2 N NUCLEATED RBC # (test code = NRBC#) 0.00 x10 3/uL 0.0-0.1 N MANUAL DIFF REQUIRED (test code = MDIFF) NO CBC W/AUTO [id number] 07:55:00* Test Item Value Reference Range Interpretation Comments WHITE BLOOD CELL (test code = WBC) 7.55 x10 3/uL 4.5-11.0 N RED BLOOD CELL (test code = RBC) 3.71 x10 6/uL 3.54-5.02 N HEMOGLOBIN (test code = HGB) 12.4 g/dL 11.0-15.0 N HEMATOCRIT (test code = HCT) 36.8 % 33.0-45.0 N MEAN CELL VOLUME (test code = MCV) 99.2 fL 81.0-99.0 H MEAN CELL HGB (test code = MCH) 33.4 pg 27.0-33.0 H MEAN CELL HGB CONCETRATION (test code = MCHC) 33.7 g/dL 33.0-37. 0 N RED CELL DISTRIBUTION WIDTH CV (test code = RDW) 11.8 % 11.5- 14.5 N RED CELL DISTRIBUTION WIDTH SD (test code = RDW-SD) 42.8 fL 37 .0-54.0 N PLATELET COUNT (test code = PLT) 304 x10 3/uL 150-400 N MEAN PLATELET VOLUME (test code = MPV) 9.6 fL 7.0-9.0 H NEUTROPHIL % (test code = NT%) 43.8 % 56.0-77.0 L IMMATURE GRANULOCYTE % (test code = IG%) 0.3 % 0.0-2.0 N LYMPHOCYTE % (test code = LY%) 44.1 % 14.0-32.0 H MONOCYTE % (test code = MO%) 8.2 % 4.8-9.0 N EOSINOPHIL % (test code = EO%) 3.3 % 0.3-3.7 N BASOPHIL % (test code = BA%) 0.3 % 0.0-2.0 N NUCLEATED RBC % (test code = NRBC%) 0.0 % 0-0 N NEUTROPHIL # (test code = NT#) 3.31 x10 3/uL 2.0-7.6 N IMMATURE GRANULOCYTE # (test code = IG#) 0.02 x10 3/uL 0.00-0.03 N LYMPHOCYTE # (test code = LY#) 3.33 x10 3/uL 1.0-3.8 N MONOCYTE # (test code = MO#) 0.62 x10 3/uL 0.1-0.8 N EOSINOPHIL # (test code = EO#) 0.25 x10 3/uL 0.0-0.2 H BASOPHIL # (test code = BA#) 0.02 x10 3/uL 0.0-0.2 N NUCLEATED RBC # (test code = NRBC#) 0.00 x10 3/uL 0.0-0.1 N MANUAL DIFF REQUIRED (test code = MDIFF) NO COMMENTS: Daily while on HeparinTHROMBOPLASTIN TIME [id number] 06:58:00* Test Item Value Reference Range Interpretation Comments THROMBOPLASTIN TIME PARTIAL (test code = PTT) 68.4 Seconds 25.0-39. 5 H Therapeutic Range: 50.4 - 88.3 Seconds Effective 10/08/2018 THROMBOPLASTIN TIME [id number] 23:00:00* Test Item Value Reference Range Interpretation Comments THROMBOPLASTIN TIME PARTIAL (test code = PTT) 38.4 Seconds 25.0-39. 5 Therapeutic Range: 50.4 - 88.3 Seconds Effective 10/08/2018 [id number] 14:44:00* Test Item Value Reference Range Interpretation Comments TROPONIN-I (test code = TROPI) < 0.015 ng/mL 0.000-0.045 N Negative: <= 0.045 Positive: >= 0.046 Correlation with serial results, other cardiac markers andclinical findings is necessary to determine the clinicalsignificance of this result. Results using different methodologies should not be comparedto one another as quantitative results may vary by method. PLT RESPONSE TO [id number] 14:38:00* Test Item Value Reference Range Interpretation Comments PLT RESPONSE TO PLAVIX (test code = PLAVRES) 221 PRU 182-335 N Values <180 PRU are specific evidence of a P2Y12 inhibitoreffect CBC W/AUTO [id number] 08:19:00* Test Item Value Reference Range Interpretation Comments WHITE BLOOD CELL (test code = WBC) 6.38 x10 3/uL 4.5-11.0 N RED BLOOD CELL (test code = RBC) 3.38 x10 6/uL 3.54-5.02 L HEMOGLOBIN (test code = HGB) 11.4 g/dL 11.0-15.0 N HEMATOCRIT (test code = HCT) 33.9 % 33.0-45.0 N MEAN CELL VOLUME (test code = MCV) 100.3 fL 81.0-99.0 H MEAN CELL HGB (test code = MCH) 33.7 pg 27.0-33.0 H MEAN CELL HGB CONCETRATION (test code = MCHC) 33.6 g/dL 33.0-37. 0 N RED CELL DISTRIBUTION WIDTH CV (test code = RDW) 11.8 % 11.5- 14.5 N RED CELL DISTRIBUTION WIDTH SD (test code = RDW-SD) 43.1 fL 37 .0-54.0 N PLATELET COUNT (test code = PLT) 280 x10 3/uL 150-400 N MEAN PLATELET VOLUME (test code = MPV) 9.9 fL 7.0-9.0 H NEUTROPHIL % (test code = NT%) 35.9 % 56.0-77.0 L IMMATURE GRANULOCYTE % (test code = IG%) 0.2 % 0.0-2.0 N LYMPHOCYTE % (test code = LY%) 51.6 % 14.0-32.0 H MONOCYTE % (test code = MO%) 8.6 % 4.8-9.0 N EOSINOPHIL % (test code = EO%) 3.4 % 0.3-3.7 N BASOPHIL % (test code = BA%) 0.3 % 0.0-2.0 N NUCLEATED RBC % (test code = NRBC%) 0.0 % 0-0 N NEUTROPHIL # (test code = NT#) 2.29 x10 3/uL 2.0-7.6 N IMMATURE GRANULOCYTE # (test code = IG#) 0.01 x10 3/uL 0.00-0.03 N LYMPHOCYTE # (test code = LY#) 3.29 x10 3/uL 1.0-3.8 N MONOCYTE # (test code = MO#) 0.55 x10 3/uL 0.1-0.8 N EOSINOPHIL # (test code = EO#) 0.22 x10 3/uL 0.0-0.2 H BASOPHIL # (test code = BA#) 0.02 x10 3/uL 0.0-0.2 N NUCLEATED RBC # (test code = NRBC#) 0.00 x10 3/uL 0.0-0.1 N MANUAL DIFF REQUIRED (test code = MDIFF) NO COMMENTS: Daily while on HeparinTHROMBOPLASTIN TIME [id number] 07:11:00* Test Item Value Reference Range Interpretation Comments THROMBOPLASTIN TIME PARTIAL (test code = PTT) 78.2 Seconds 25.0-39. 5 H Therapeutic Range: 50.4 - 88.3 Seconds Effective 10/08/2018 THROMBOPLASTIN TIME [id number] 23:15:00* Test Item Value Reference Range Interpretation Comments THROMBOPLASTIN TIME PARTIAL (test code = PTT) 76.1 Seconds 25.0-39. 5 H Therapeutic Range: 50.4 - 88.3 Seconds Effective 10/08/2018 COMMENTS: DRAW PTT 6 HOURS AFTER INITIATION OF HEPARINPROTHROMBIN [id number] 16:35:00* Test Item Value Reference Range Interpretation Comments PROTHROMBIN TIME PATIENT (test code = PTP) 13.2 SECONDS 9.3-12.9 H INTERNATIONAL NORMAL RATIO (test code = INR) 1.2 0.8-1.2 N TARGET INR BY INDICATION Indication INR1. Prophylaxis of venous thrombosis 2.0 - 3.0 (orthopedic surgery), Prophylaxis of venous thrombosis (other than high-risk surgery), Treatment of Deep Vein Thrombosis/Pulmonary Embolism, Prevention of systemic embolism - Tissue heart valves, Acute Myocardial Infarction (to prevent systemic embolism), Valvular heart disease, Atrial Fibrillation, Bileaflet mechanical valve in aortic position.2. Mechanical prosthetic valves (high risk), 2.5 - 3.5 Presence of Lupus Anticoagulant or Antiphospholipid Antibodies, Prevention of systemic embolism - Acute Myocardial Infarction (to prevent recurrent infarct). COMMENTS: IF NOT ALREADY DONE WITHIN LAST 24 HOURSTHROMBOPLASTIN TIME PARTIAL 2019-05-29 16:35:00* Test Item Value Reference Range Interpretation Comments THROMBOPLASTIN TIME PARTIAL (test code = PTT) 34.3 Seconds 25.0-39. 5 N Therapeutic Range: 50.4 - 88.3 Seconds Effective 10/08/2018 COMMENTS: IF NOT ALREADY DONE WITHIN LAST 24 HOURSCBC W/AUTO [id number] 16:23:00* Test Item Value Reference Range Interpretation Comments WHITE BLOOD CELL (test code = WBC) 5.76 x10 3/uL 4.5-11.0 N RED BLOOD CELL (test code = RBC) 3.56 x10 6/uL 3.54-5.02 N HEMOGLOBIN (test code = HGB) 12.0 g/dL 11.0-15.0 N HEMATOCRIT (test code = HCT) 35.4 % 33.0-45.0 N MEAN CELL VOLUME (test code = MCV) 99.4 fL 81.0-99.0 H MEAN CELL HGB (test code = MCH) 33.7 pg 27.0-33.0 H MEAN CELL HGB CONCETRATION (test code = MCHC) 33.9 g/dL 33.0-37. 0 N RED CELL DISTRIBUTION WIDTH CV (test code = RDW) 11.7 % 11.5- 14.5 N RED CELL DISTRIBUTION WIDTH SD (test code = RDW-SD) 42.9 fL 37 .0-54.0 N PLATELET COUNT (test code = PLT) 274 x10 3/uL 150-400 N MEAN PLATELET VOLUME (test code = MPV) 9.2 fL 7.0-9.0 H NEUTROPHIL % (test code = NT%) 38.5 % 56.0-77.0 L IMMATURE GRANULOCYTE % (test code = IG%) 0.2 % 0.0-2.0 N LYMPHOCYTE % (test code = LY%) 46.4 % 14.0-32.0 H MONOCYTE % (test code = MO%) 11.6 % 4.8-9.0 H EOSINOPHIL % (test code = EO%) 3.1 % 0.3-3.7 N BASOPHIL % (test code = BA%) 0.2 % 0.0-2.0 N NUCLEATED RBC % (test code = NRBC%) 0.0 % 0-0 N NEUTROPHIL # (test code = NT#) 2.22 x10 3/uL 2.0-7.6 N IMMATURE GRANULOCYTE # (test code = IG#) 0.01 x10 3/uL 0.00-0.03 N LYMPHOCYTE # (test code = LY#) 2.67 x10 3/uL 1.0-3.8 N MONOCYTE # (test code = MO#) 0.67 x10 3/uL 0.1-0.8 N EOSINOPHIL # (test code = EO#) 0.18 x10 3/uL 0.0-0.2 N BASOPHIL # (test code = BA#) 0.01 x10 3/uL 0.0-0.2 N NUCLEATED RBC # (test code = NRBC#) 0.00 x10 3/uL 0.0-0.1 N MANUAL DIFF REQUIRED (test code = MDIFF) NO COMMENTS: IF NOT ALREADY DONE WITHIN LAST 24 HOURSBASI METABOLIC PANEL 2019-05-29 05:07:00* Test Item Value Reference Range Interpretation Comments SODIUM (test code = NA) 137 mEq/L 134-147 N POTASSIUM (test code = K) 4.2 mEq/L 3.4-5.0 N CHLORIDE (test code = CL) 104 mEq/L 100-108 N CARBON DIOXIDE (test code = CO2) 27 mEq/L 21-33 N ANION GAP (test code = GAP) 10 0-20 N GLUCOSE (test code = GLU) 107 mg/dL 70-110 N BLOOD UREA NITROGEN (test code = BUN) 21 mg/dL 7-18 H GLOMERULAR FILTRATION RATE (test code = GFR) 52.7 95-105 L Units of measure = ml/min/1.73 m2 CREATININE (test code = CREAT) 1.3 mg/dL 0.6-1.3 CALCIUM (test code = CA) 8.7 mg/dL 8.0-10.5 N CBC W/AUTO [id number] 04:48:00* Test Item Value Reference Range Interpretation Comments WHITE BLOOD CELL (test code = WBC) 5.92 x10 3/uL 4.5-11.0 N RED BLOOD CELL (test code = RBC) 3.17 x10 6/uL 3.54-5.02 L HEMOGLOBIN (test code = HGB) 11.0 g/dL 11.0-15.0 N HEMATOCRIT (test code = HCT) 31.5 % 33.0-45.0 L MEAN CELL VOLUME (test code = MCV) 99.4 fL 81.0-99.0 H MEAN CELL HGB (test code = MCH) 34.7 pg 27.0-33.0 H MEAN CELL HGB CONCETRATION (test code = MCHC) 34.9 g/dL 33.0-37. 0 N RED CELL DISTRIBUTION WIDTH CV (test code = RDW) 11.7 % 11.5- 14.5 N RED CELL DISTRIBUTION WIDTH SD (test code = RDW-SD) 42.5 fL 37 .0-54.0 N PLATELET COUNT (test code = PLT) 255 x10 3/uL 150-400 N MEAN PLATELET VOLUME (test code = MPV) 9.1 fL 7.0-9.0 H NEUTROPHIL % (test code = NT%) 46.1 % 56.0-77.0 L IMMATURE GRANULOCYTE % (test code = IG%) 0.2 % 0.0-2.0 N LYMPHOCYTE % (test code = LY%) 41.2 % 14.0-32.0 H MONOCYTE % (test code = MO%) 9.8 % 4.8-9.0 H EOSINOPHIL % (test code = EO%) 2.4 % 0.3-3.7 N BASOPHIL % (test code = BA%) 0.3 % 0.0-2.0 N NUCLEATED RBC % (test code = NRBC%) 0.0 % 0-0 N NEUTROPHIL # (test code = NT#) 2.73 x10 3/uL 2.0-7.6 N IMMATURE GRANULOCYTE # (test code = IG#) 0.01 x10 3/uL 0.00-0.03 N LYMPHOCYTE # (test code = LY#) 2.44 x10 3/uL 1.0-3.8 N MONOCYTE # (test code = MO#) 0.58 x10 3/uL 0.1-0.8 N EOSINOPHIL # (test code = EO#) 0.14 x10 3/uL 0.0-0.2 N BASOPHIL # (test code = BA#) 0.02 x10 3/uL 0.0-0.2 N NUCLEATED RBC # (test code = NRBC#) 0.00 x10 3/uL 0.0-0.1 N MANUAL DIFF REQUIRED (test code = MDIFF) NO - DUP EXTRACRANIAL [id number] 10:48:00 Name: EVA MG [facility] : 1970 Age/S: 48 / F [address] [place] [address] Blvd Unit #: [id number] Loc: [place] [address] Phys: Montana Sanders [employer] Acct: [id number] Dis Date: Status: ADM IN PHONE #: [phone] Exam Date: 05/28/2019 1006 FAX #: [phone] Reason: pre cab eval EXAMS: CPT CODE: [id number] DUP EXTRACRANIAL BUBBA 11607 Clinical Indication: Pre-CABG evaluation Comparison: None TECHNIQUE: Jackman-scale, color Doppler and spectral Doppler of the carotid arteries was performed. Any reported ICA stenoses indirectly reference the distal internal carotid diameter as the denominator for the stenosis measurement, utilizing consensus panel criteria. FINDINGS: RIGHT: Mild plaque calcification ICA PSV 66 cm/sec CCA PSV 65 cm/sec ICA/CCA ratio 1.0 Vertebral flow is antegrade. LEFT: Mild plaque calcification ICA PSV 95 cm/sec CCA PSV 65 cm/sec ICA/CCA ratio 1.5 Vertebral flow is antegrade. IMPRESSION: 1. RIGHT: ICA stenosis <50 % by velocity criteria. 2. LEFT: ICA stenosis <50 % by velocity criteria. Consensus panel Doppler US criteria for diagnosis of ICA stenosis: Stenosis (%) ICA PSV (cm/sec) ICA/CCA ratio ------ <50 <125 <2 50-69 125-230 2.0-4.0 > 70 but less than >230 >4.0 near occlusion Near occlusion High, low, or Variable undetectable PAGE 1 Signed Report (CONTINUED) Name: EVA MG [facility] [place] : 1970 Age/S: 48 / F [address] [place] [address] Unit #: [id number] Loc: [place] [address] Phys: Montana Sanders NP Acct: [id number] Dis Date: Status: ADM IN PHONE #: [phone] Exam Date: 05/28/2019 1006 FAX #: [phone] Reason: pre cab eval EXAMS: CPT CODE: [id number] DUP EXTRACRANIAL BUBBA 52238 <Continued> SL: [id number] SL: [id number] at 1048 Reported and signed by: Dirk Pierre M.D. 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 COMPARISON: No relevant priors available. Multiple ultrasound images of the lower extremities were obtained u sing grayscale. The examination is performed for venous mapping. All dov surements are transverse view. Right lower extremity greater sap henous vein measurements: Upper thigh: 19 mm Mid thigh: 17 m m Distal thigh: 15 mm Proximal calf: 10 mm Mid calf: 7 mm Distal calf: Not visualized Left lower extremity greater saphen ous vein measurements: Upper thigh: 28 mm Mid thigh: 18 mm Distal thigh: 17 mm Proximal calf: Not visualized Mid calf: Not visualized Distal calf: Not visualized IMPRESSION: Venous mapping as described above. SL: [id number] at 1020 Reported and signed by: Ted Lieberman M.D. CC: Montana Sanders NP; Lito Chanel MD Technologist: Zonia Valle Trniab Date/Time: 05/28/2019 (1020) [email or web address] Orig Print D/T: S: 05/28/2019 (3123) Probe: PAGE 1 Signed Report - CT CHEST W/O [id number] 10:14:00 Name: EVA MG [facility] : 1970 Age/S: 48 / F [address] [place] [address] Unit #: [id number] Loc: [place] [address] Phys: Montana Sanders NP Acct: [id number] Dis Date: Status: ADM IN PHONE #: [phone] Exam Date: 05/28/2019 0840 FAX #: [phone] Reason: pre cab eval EXAMS: CPT CODE: [id number] CT CHEST W/O CONTRAST 63567 PROCEDURE: CT CHEST WITHOUT CONTRAST INDICATION: Pre- CABG evaluation. COMPARISON: 05/23/2019 chest x-ray and 04/04/2019 CT chest. TECHNIQUE: Helical imaging performed apices through the lung bases with axial, sagittal and coronal reformations. CT imaging performed at this location utilizes radiation dose optimization techniques which include one or more of the following: -Automated exposure control -Adjustment of the mA and/or kV according to patient size -Use of iterative reconstruction technique CT Radiation Dose DLP 316.80 mGy-cm IV CONTRAST: 100 mL Isovue 300. FINDINGS: LUNGS: The lungs are clear. No pleural abnormality. MEDIASTINUM: Very mild amount of plaque in the distal aortic arch. No plaque evident in the aortic arch and no appreciable aortic valve calcification. The ascending aorta is approximately 3.1 cm in diameter. Bovine arch configuration of the origin of the great vessels from the aortic arch. Minimal amount of calcified plaque in the proximal left subclavian artery. Pronounced coronary artery calcifications. No pericardial fluid evident. UPPER ABDOMEN: Right renal cyst. Upper abdominal structures otherwise normal. MUSCULOSKELETAL: The skeleton is intact. IMPRESSION: 1. Normal caliber ascending thoracic aorta no calcified plaque evident in the ascending thoracic aorta. 2. Pronounced coronary artery calcification. 3. Right renal cyst. END IMPRESSION [id number] PAGE 1 Signed Report (CONTINUED) Name: EVA MG [facility] : 1970 Age/S: 48 / F [address] [place] [address] Bl Unit #: [id number] Loc: [place] [address] Phys: Montana Sanders NP Acct: [id number] Dis Date: Status: ADM IN PHONE #: [phone] Exam Date: 05/28/2019 0840 FAX #: [phone] Reason: pre cab eval EXAMS: CPT CODE: [id number] CT CHEST W/O CONTRAST 07699 < Continued> at 1014 Reported and signed by: Ted Lieberman M.D. CC: Montana Sanders NP; Lito Chanel MD Technologist:RT Arnie(R)(CT) CTDI: DLP: Trnscb Date/Time: 05/28/2019 (1014) [email or web address] Orig Print D/T: S: 05/28/2019 (1017) PAGE 2 Signed Report CBC W/AUTO [id number] 09:08:00* Test Item Value Reference Range Interpretation Comments WHITE BLOOD CELL (test code = WBC) 5.57 x10 3/uL 4.5-11.0 N RED BLOOD CELL (test code = RBC) 3.14 x10 6/uL 3.54-5.02 L HEMOGLOBIN (test code = HGB) 10.7 g/dL 11.0-15.0 L HEMATOCRIT (test code = HCT) 31.2 % 33.0-45.0 L MEAN CELL VOLUME (test code = MCV) 99.4 fL 81.0-99.0 H MEAN CELL HGB (test code = MCH) 34.1 pg 27.0-33.0 H MEAN CELL HGB CONCETRATION (test code = MCHC) 34.3 g/dL 33.0-37. 0 N RED CELL DISTRIBUTION WIDTH CV (test code = RDW) 11.7 % 11.5- 14.5 N RED CELL DISTRIBUTION WIDTH SD (test code = RDW-SD) 42.6 fL 37 .0-54.0 N PLATELET COUNT (test code = PLT) 265 x10 3/uL 150-400 N MEAN PLATELET VOLUME (test code = MPV) 9.6 fL 7.0-9.0 H NEUTROPHIL % (test code = NT%) 51.3 % 56.0-77.0 L IMMATURE GRANULOCYTE % (test code = IG%) 0.4 % 0.0-2.0 N LYMPHOCYTE % (test code = LY%) 34.6 % 14.0-32.0 H MONOCYTE % (test code = MO%) 10.6 % 4.8-9.0 H EOSINOPHIL % (test code = EO%) 2.9 % 0.3-3.7 N BASOPHIL % (test code = BA%) 0.2 % 0.0-2.0 N NUCLEATED RBC % (test code = NRBC%) 0.0 % 0-0 N NEUTROPHIL # (test code = NT#) 2.86 x10 3/uL 2.0-7.6 N IMMATURE GRANULOCYTE # (test code = IG#) 0.02 x10 3/uL 0.00-0.03 N LYMPHOCYTE # (test code = LY#) 1.93 x10 3/uL 1.0-3.8 N MONOCYTE # (test code = MO#) 0.59 x10 3/uL 0.1-0.8 N EOSINOPHIL # (test code = EO#) 0.16 x10 3/uL 0.0-0.2 N BASOPHIL # (test code = BA#) 0.01 x10 3/uL 0.0-0.2 N NUCLEATED RBC # (test code = NRBC#) 0.00 x10 3/uL 0.0-0.1 N MANUAL DIFF REQUIRED (test code = MDIFF) NO BASIC METABOLIC [id number] 08:01:00* Test Item Value Reference Range Interpretation Comments SODIUM (test code = NA) 140 mEq/L 134-147 N POTASSIUM (test code = K) 4.2 mEq/L 3.4-5.0 N CHLORIDE (test code = CL) 107 mEq/L 100-108 N CARBON DIOXIDE (test code = CO2) 27 mEq/L 21-33 N ANION GAP (test code = GAP) 10 0-20 N GLUCOSE (test code = GLU) 100 mg/dL 70-110 N BLOOD UREA NITROGEN (test code = BUN) 17 mg/dL 7-18 N GLOMERULAR FILTRATION RATE (test code = GFR) 80.5 95-105 L Units of measure = ml/min/1.73 m2 CREATININE (test code = CREAT) 0.9 mg/dL 0.6-1.3 N CALCIUM (test code = CA) 8.7 mg/dL 8.0-10.5 N URINALYSIS [id number] 04:17:00* Test Item Value Reference Range Interpretation Comments UA COLOR (test code = COLU) YELLOW YEL/STRAW UA APPEARANCE (test code = APPU) CLEAR CLEAR UA GLUCOSE DIPSTICK (test code = DGLUU) NEGATIVE NEGATIVE UA BILIRUBIN DIPSTICK (test code = BILU) NEGATIVE NEGATIVE UA KETONE DIPSTICK (test code = KETU) NEGATIVE NEGATIVE UA SPECIFIC GRAVITY (test code = SGU) 1.012 1.005-1.030 N UA BLOOD DIPSTICK (test code = DARREN) NEGATIVE NEGATIVE UA PH DIPSTICK (test code = LUBA) 6.0 5.0-7.0 N UA PROTEIN DIPSTICK (test code = PROU) NEGATIVE NEGATIVE UA UROBILINIOGEN DIPSTICK (test code = URO) 0.2 mg/dL 0.2-1.0 UA NITRITE DIPSTICK (test code = SHAD) NEGATIVE NEGATIVE UA LEUKOCYTE ESTERASE DIPSTICK (test code = LEUU) NEGATIVE NEGA TIVE UA RBC (test code = RBCU) NONE SEEN RBC/HPF 0-3 UA WBC NO REFLEX (test code = WBCUCL) 0-3 WBC/HPF 0-3 UA BACTERIA (test code = BACU) TRACE /HPF NONE SEEN UA SQUAMOUS CELLS (test code = SQU) 6-10 /HPF NONE SEEN A UA MUCUS (test code = MUCU) TRACE /LPF NONE SEEN BASIC METABOLIC [id number] 07:08:00* Test Item Value Reference Range Interpretation Comments SODIUM (test code = NA) 141 mEq/L 134-147 N POTASSIUM (test code = K) 3.7 mEq/L 3.4-5.0 N CHLORIDE (test code = CL) 107 mEq/L 100-108 N CARBON DIOXIDE (test code = CO2) 29 mEq/L 21-33 N ANION GAP (test code = GAP) 9 0-20 N GLUCOSE (test code = GLU) 119 mg/dL 70-110 H BLOOD UREA NITROGEN (test code = BUN) 14 mg/dL 7-18 N GLOMERULAR FILTRATION RATE (test code = GFR) 80.5 95-105 L Units of measure = ml/min/1.73 m2 CREATININE (test code = CREAT) 0.9 mg/dL 0.6-1.3 N CALCIUM (test code = CA) 8.4 mg/dL 8.0-10.5 N CBC W/AUTO [id number] 06:48:00* Test Item Value Reference Range Interpretation Comments WHITE BLOOD CELL (test code = WBC) 5.51 x10 3/uL 4.5-11.0 N RED BLOOD CELL (test code = RBC) 3.03 x10 6/uL 3.54-5.02 L HEMOGLOBIN (test code = HGB) 10.1 g/dL 11.0-15.0 L HEMATOCRIT (test code = HCT) 30.4 % 33.0-45.0 L MEAN CELL VOLUME (test code = MCV) 100.3 fL 81.0-99.0 H MEAN CELL HGB (test code = MCH) 33.3 pg 27.0-33.0 H MEAN CELL HGB CONCETRATION (test code = MCHC) 33.2 g/dL 33.0-37. 0 N RED CELL DISTRIBUTION WIDTH CV (test code = RDW) 11.8 % 11.5- 14.5 N RED CELL DISTRIBUTION WIDTH SD (test code = RDW-SD) 42.8 fL 37 .0-54.0 N PLATELET COUNT (test code = PLT) 261 x10 3/uL 150-400 N MEAN PLATELET VOLUME (test code = MPV) 9.4 fL 7.0-9.0 H NEUTROPHIL % (test code = NT%) 44.0 % 56.0-77.0 L IMMATURE GRANULOCYTE % (test code = IG%) 0.2 % 0.0-2.0 N LYMPHOCYTE % (test code = LY%) 43.6 % 14.0-32.0 H MONOCYTE % (test code = MO%) 8.9 % 4.8-9.0 N EOSINOPHIL % (test code = EO%) 3.1 % 0.3-3.7 N BASOPHIL % (test code = BA%) 0.2 % 0.0-2.0 N NUCLEATED RBC % (test code = NRBC%) 0.0 % 0-0 N NEUTROPHIL # (test code = NT#) 2.43 x10 3/uL 2.0-7.6 N IMMATURE GRANULOCYTE # (test code = IG#) 0.01 x10 3/uL 0.00-0.03 N LYMPHOCYTE # (test code = LY#) 2.40 x10 3/uL 1.0-3.8 N MONOCYTE # (test code = MO#) 0.49 x10 3/uL 0.1-0.8 N EOSINOPHIL # (test code = EO#) 0.17 x10 3/uL 0.0-0.2 N BASOPHIL # (test code = BA#) 0.01 x10 3/uL 0.0-0.2 N NUCLEATED RBC # (test code = NRBC#) 0.00 x10 3/uL 0.0-0.1 N MANUAL DIFF REQUIRED (test code = MDIFF) NO PROTHROMBIN [id number] 04:53:00* Test Item Value Reference Range Interpretation Comments PROTHROMBIN TIME PATIENT (test code = PTP) 13.1 SECONDS 9.3-12.9 H INTERNATIONAL NORMAL RATIO (test code = INR) 1.2 0.8-1.2 N TARGET INR BY INDICATION Indication INR1. Prophylaxis of venous thrombosis 2.0 - 3.0 (orthopedic surgery), Prophylaxis of venous thrombosis (other than high-risk surgery), Treatment of Deep Vein Thrombosis/Pulmonary Embolism, Prevention of systemic embolism - Tissue heart valves, Acute Myocardial Infarction (to prevent systemic embolism), Valvular heart disease, Atrial Fibrillation, Bileaflet mechanical valve in aortic position.2. Mechanical prosthetic valves (high risk), 2.5 - 3.5 Presence of Lupus Anticoagulant or Antiphospholipid Antibodies, Prevention of systemic embolism - Acute Myocardial Infarction (to prevent recurrent infarct). BASIC METABOLIC [id number] 04:50:00* Test Item Value Reference Range Interpretation Comments SODIUM (test code = NA) 141 mEq/L 134-147 N POTASSIUM (test code = K) 3.6 mEq/L 3.4-5.0 N CHLORIDE (test code = CL) 106 mEq/L 100-108 N CARBON DIOXIDE (test code = CO2) 31 mEq/L 21-33 N ANION GAP (test code = GAP) 8 0-20 N GLUCOSE (test code = GLU) 95 mg/dL 70-110 N BLOOD UREA NITROGEN (test code = BUN) 14 mg/dL 7-18 N GLOMERULAR FILTRATION RATE (test code = GFR) 71.3 95-105 L Units of measure = ml/min/1.73 m2 CREATININE (test code = CREAT) 1.0 mg/dL 0.6-1.3 N CALCIUM (test code = CA) 8.5 mg/dL 8.0-10.5 N COMMENTS: To be done morning of Heart CathHCG SERUM [id number] 04:50:00* Test Item Value Reference Range Interpretation Comments HCG SERUM QUAL (test code = HCGQL) SERUM NEGATIVE NEGATIVE COMMENTS: To be done morning of Heart CathBASIC METABOLIC [id number] 04:49:00* Test Item Value Reference Range Interpretation Comments SODIUM (test code = NA) 141 mEq/L 134-147 N POTASSIUM (test code = K) 3.6 mEq/L 3.4-5.0 N CHLORIDE (test code = CL) 106 mEq/L 100-108 N CARBON DIOXIDE (test code = CO2) 31 mEq/L 21-33 N ANION GAP (test code = GAP) 8 0-20 N GLUCOSE (test code = GLU) 95 mg/dL 70-110 N BLOOD UREA NITROGEN (test code = BUN) 14 mg/dL 7-18 N GLOMERULAR FILTRATION RATE (test code = GFR) 95-105 CREATININE (test code = CREAT) mg/dL 0.6-1.3 CALCIUM (test code = CA) 8.5 mg/dL 8.0-10.5 N COMMENTS: To be done morning of Heart CathHCG SERUM [id number] 04:49:00* Test Item Value Reference Range Interpretation Comments HCG SERUM QUAL (test code = HCGQL) SERUM NEGATIVE NEGATIVE COMMENTS: To be done morning of Heart CathBASIC METABOLIC [id number] 04:42:00* Test Item Value Reference Range Interpretation Comments SODIUM (test code = NA) 141 mEq/L 134-147 N POTASSIUM (test code = K) 3.6 mEq/L 3.4-5.0 N CHLORIDE (test code = CL) 106 mEq/L 100-108 N CARBON DIOXIDE (test code = CO2) 31 mEq/L 21-33 N ANION GAP (test code = GAP) 8 0-20 N GLUCOSE (test code = GLU) 95 mg/dL 70-110 N BLOOD UREA NITROGEN (test code = BUN) 14 mg/dL 7-18 N GLOMERULAR FILTRATION RATE (test code = GFR) 95-105 CREATININE (test code = CREAT) mg/dL 0.6-1.3 CALCIUM (test code = CA) 8.5 mg/dL 8.0-10.5 N COMMENTS: To be done morning of Heart CathHCG SERUM [id number] 04:42:00* Test Item Value Reference Range Interpretation Comments HCG SERUM QUAL (test code = HCGQL) NEGATIVE COMMENTS: To be done morning of Heart CathCBC W/AUTO [id number] 04:38:00* Test Item Value Reference Range Interpretation Comments WHITE BLOOD CELL (test code = WBC) 6.83 x10 3/uL 4.5-11.0 N RED BLOOD CELL (test code = RBC) 3.06 x10 6/uL 3.54-5.02 L HEMOGLOBIN (test code = HGB) 10.3 g/dL 11.0-15.0 L HEMATOCRIT (test code = HCT) 30.7 % 33.0-45.0 L MEAN CELL VOLUME (test code = MCV) 100.3 fL 81.0-99.0 H MEAN CELL HGB (test code = MCH) 33.7 pg 27.0-33.0 H MEAN CELL HGB CONCETRATION (test code = MCHC) 33.6 g/dL 33.0-37. 0 N RED CELL DISTRIBUTION WIDTH CV (test code = RDW) 11.8 % 11.5- 14.5 N RED CELL DISTRIBUTION WIDTH SD (test code = RDW-SD) 42.5 fL 37 .0-54.0 N PLATELET COUNT (test code = PLT) 280 x10 3/uL 150-400 N MEAN PLATELET VOLUME (test code = MPV) 9.2 fL 7.0-9.0 H NEUTROPHIL % (test code = NT%) 41.5 % 56.0-77.0 L IMMATURE GRANULOCYTE % (test code = IG%) 0.1 % 0.0-2.0 N LYMPHOCYTE % (test code = LY%) 47.0 % 14.0-32.0 H MONOCYTE % (test code = MO%) 9.1 % 4.8-9.0 H EOSINOPHIL % (test code = EO%) 2.0 % 0.3-3.7 N BASOPHIL % (test code = BA%) 0.3 % 0.0-2.0 N NUCLEATED RBC % (test code = NRBC%) 0.0 % 0-0 N NEUTROPHIL # (test code = NT#) 2.83 x10 3/uL 2.0-7.6 N IMMATURE GRANULOCYTE # (test code = IG#) 0.01 x10 3/uL 0.00-0.03 N LYMPHOCYTE # (test code = LY#) 3.21 x10 3/uL 1.0-3.8 N MONOCYTE # (test code = MO#) 0.62 x10 3/uL 0.1-0.8 N EOSINOPHIL # (test code = EO#) 0.14 x10 3/uL 0.0-0.2 N BASOPHIL # (test code = BA#) 0.02 x10 3/uL 0.0-0.2 N NUCLEATED RBC # (test code = NRBC#) 0.00 x10 3/uL 0.0-0.1 N MANUAL DIFF REQUIRED (test code = MDIFF) NO BASIC METABOLIC [id number] 13:32:00* Test Item Value Reference Range Interpretation Comments SODIUM (test code = NA) 140 mEq/L 134-147 N POTASSIUM (test code = K) 3.9 mEq/L 3.4-5.0 N CHLORIDE (test code = CL) 107 mEq/L 100-108 N CARBON DIOXIDE (test code = CO2) 29 mEq/L 21-33 N ANION GAP (test code = GAP) 8 0-20 N GLUCOSE (test code = GLU) 93 mg/dL 70-110 N BLOOD UREA NITROGEN (test code = BUN) 13 mg/dL 7-18 GLOMERULAR FILTRATION RATE (test code = GFR) 92.2 95-105 L Units of measure = ml/min/1.73 m2 CREATININE (test code = CREAT) 0.8 mg/dL 0.6-1.3 CALCIUM (test code = CA) 8.3 mg/dL 8.0-10.5 N CBC W/AUTO [id number] 13:30:00* Test Item Value Reference Range Interpretation Comments WHITE BLOOD CELL (test code = WBC) 7.24 x10 3/uL 4.5-11.0 N RED BLOOD CELL (test code = RBC) 3.07 x10 6/uL 3.54-5.02 L HEMOGLOBIN (test code = HGB) 10.4 g/dL 11.0-15.0 L HEMATOCRIT (test code = HCT) 30.8 % 33.0-45.0 L MEAN CELL VOLUME (test code = MCV) 100.3 fL 81.0-99.0 H MEAN CELL HGB (test code = MCH) 33.9 pg 27.0-33.0 H MEAN CELL HGB CONCETRATION (test code = MCHC) 33.8 g/dL 33.0-37. 0 N RED CELL DISTRIBUTION WIDTH CV (test code = RDW) 11.9 % 11.5- 14.5 N RED CELL DISTRIBUTION WIDTH SD (test code = RDW-SD) 43.5 fL 37 .0-54.0 N PLATELET COUNT (test code = PLT) 270 x10 3/uL 150-400 N MEAN PLATELET VOLUME (test code = MPV) 9.3 fL 7.0-9.0 H NEUTROPHIL % (test code = NT%) 55.7 % 56.0-77.0 L IMMATURE GRANULOCYTE % (test code = IG%) 0.3 % 0.0-2.0 N LYMPHOCYTE % (test code = LY%) 35.2 % 14.0-32.0 H MONOCYTE % (test code = MO%) 7.5 % 4.8-9.0 N EOSINOPHIL % (test code = EO%) 1.2 % 0.3-3.7 N BASOPHIL % (test code = BA%) 0.1 % 0.0-2.0 N NUCLEATED RBC % (test code = NRBC%) 0.0 % 0-0 N NEUTROPHIL # (test code = NT#) 4.03 x10 3/uL 2.0-7.6 N IMMATURE GRANULOCYTE # (test code = IG#) 0.02 x10 3/uL 0.00-0.03 N LYMPHOCYTE # (test code = LY#) 2.55 x10 3/uL 1.0-3.8 N MONOCYTE # (test code = MO#) 0.54 x10 3/uL 0.1-0.8 N EOSINOPHIL # (test code = EO#) 0.09 x10 3/uL 0.0-0.2 N BASOPHIL # (test code = BA#) 0.01 x10 3/uL 0.0-0.2 N NUCLEATED RBC # (test code = NRBC#) 0.00 x10 3/uL 0.0-0.1 N MANUAL DIFF REQUIRED (test code = MDIFF) NO [id number] 11:52:00* Test Item Value Reference Range Interpretation Comments TROPONIN-I (test code = TROPI) < 0.015 ng/mL 0.000-0.045 N Negative: <= 0.045 Positive: >= 0.046 Correlation with serial results, other cardiac markers andclinical findings is necessary to determine the clinicalsignificance of this result. Results using different methodologies should not be comparedto one another as quantitative results may vary by method. COMMENTS: 3 troponins total (including troponin done in ED)[id number] 07:38:00* Test Item Value Reference Range Interpretation Comments TROPONIN-I (test code = TROPI) < 0.015 ng/mL 0.000-0.045 N Negative: <= 0.045 Positive: >= 0.046 Correlation with serial results, other cardiac markers andclinical findings is necessary to determine the clinicalsignificance of this result. Results using different methodologies should not be comparedto one another as quantitative results may vary by method. COMMENTS: 3 troponins total (including troponin done in ED)DRUGS OF ABUSE SCREEN [id number] 02:14:00* Test Item Value Reference Range Interpretation Comments URN COCAINE (test code = COCAURN) NEGATIVE NEGATIVE URN CANNABINOIDS (test code = CANNABURN) POSITIVE NEGATIVE A URN AMPHETAMINE (test code = AMPHETURN) NEGATIVE NEGATIVE URN BARBITURATE (test code = BARBITURN) NEGATIVE NEGATIVE URN BENZODIAZEPINE (test code = BENZOURN) NEGATIVE NEGATIVE Cut-off value:200 ng/mL URN OPIATES (test code = OPIATURN) NEGATIVE NEGATIVE Cut-off value:2000 ng/mL URN PHENCYCLIDINE (PCP) (test code = PHENCURN) NEGATIVE NEGATIV E Cutoffs:Barbiturates 200 ng/mLBenzodiazepines 200 ng/mLTHC Cannabinoids 50 ng/mLOpiates(Morphine) 2000 ng/mLAmphetamine 1000 ng/mLCocaine 300 ng/mLPCP phencyclidine 25 ng/mL Unconfirmed screening results shouldnot be used for non-medical purposes. DRUGS OF ABUSE SCREEN [id number] 02:05:00* Test Item Value Reference Range Interpretation Comments URN COCAINE (test code = COCAURN) NEGATIVE NEGATIVE URN CANNABINOIDS (test code = CANNABURN) NEGATIVE URN AMPHETAMINE (test code = AMPHETURN) NEGATIVE NEGATIVE URN BARBITURATE (test code = BARBITURN) NEGATIVE NEGATIVE URN BENZODIAZEPINE (test code = BENZOURN) NEGATIVE NEGATIVE Cut-off value:200 ng/mL URN OPIATES (test code = OPIATURN) NEGATIVE NEGATIVE Cut-off value:2000 ng/mL URN PHENCYCLIDINE (PCP) (test code = PHENCURN) NEGATIVE NEGATIV E Cutoffs:Barbiturates 200 ng/mLBenzodiazepines 200 ng/mLTHC Cannabinoids 50 ng/mLOpiates(Morphine) 2000 ng/mLAmphetamine 1000 ng/mLCocaine 300 ng/mLPCP phencyclidine 25 ng/mL Unconfirmed screening results shouldnot be used for non-medical purposes. B-TYPE NATRIURETIC [id number] 23:59:00* Test Item Value Reference Range Interpretation Comments B-TYPE NATRIURETIC PEPTIDE (test code = BNP) 15.3 PG/ML 0-100 N BASIC METABOLIC [id number] 23:56:00* Test Item Value Reference Range Interpretation Comments SODIUM (test code = NA) 140 mEq/L 134-147 N POTASSIUM (test code = K) 3.9 mEq/L 3.4-5.0 N CHLORIDE (test code = CL) 109 mEq/L 100-108 H CARBON DIOXIDE (test code = CO2) 28 mEq/L 21-33 N ANION GAP (test code = GAP) 7 0-20 N GLUCOSE (test code = GLU) 109 mg/dL 70-110 N BLOOD UREA NITROGEN (test code = BUN) 18 mg/dL 7-18 N GLOMERULAR FILTRATION RATE (test code = GFR) 57.8 95-105 L Units of measure = ml/min/1.73 m2 CREATININE (test code = CREAT) 1.2 mg/dL 0.6-1.3 N CALCIUM (test code = CA) 8.4 mg/dL 8.0-10.5 N HEPATIC FUNCTION [id number] 23:56:00* Test Item Value Reference Range Interpretation Comments TOTAL PROTEIN (test code = PROT) 7.8 g/dL 6.4-8.2 N ALBUMIN (test code = ALB) 3.40 g/dL 3.4-5.0 N BILIRUBIN TOTAL (test code = BILT) 0.2 MG/DL <1.5 N BILIRUBIN DIRECT (test code = BILD) < 0.10 MG/DL 0.0-0.30 N BILIRUBIN INDIRECT (test code = BILIND) 0.10 MG/DL SGOT/AST (test code = AST) 12 IUnit/L 15-37 L SGPT/ALT (test code = ALT) 15 IUnit/L 15-65 N ALKALINE PHOSPHATASE TOTAL (test code = ALKP) 61 IUnit/L 20-125 N [id number] 23:56:00* Test Item Value Reference Range Interpretation Comments LIPASE (test code = LIP) 101 IUnit/L 73-393 N [id number] 23:56:00* Test Item Value Reference Range Interpretation Comments MAGNESIUM (test code = MAG) 2.00 mg/dL 1.8-2.4 N TSH REFLEX TO [id number] 23:56:00* Test Item Value Reference Range Interpretation Comments TSH REFLEX TO FT4 (test code = TSHREFLEX) 1.87 IU/mL 0.42-5.47 N [id number] 23:56:00* Test Item Value Reference Range Interpretation Comments TROPONIN-I (test code = TROPI) < 0.015 ng/mL 0.000-0.045 N Negative: <= 0.045 Positive: >= 0.046 Correlation with serial results, other cardiac markers andclinical findings is necessary to determine the clinicalsignificance of this result. Results using different methodologies should not be comparedto one another as quantitative results may vary by method. BASIC METABOLIC [id number] 23:50:00* Test Item Value Reference Range Interpretation Comments SODIUM (test code = NA) mEq/L 134-147 POTASSIUM (test code = K) mEq/L 3.4-5.0 CHLORIDE (test code = CL) mEq/L 100-108 CARBON DIOXIDE (test code = CO2) mEq/L 21-33 ANION GAP (test code = GAP) 0-20 GLUCOSE (test code = GLU) mg/dL 70-110 BLOOD UREA NITROGEN (test code = BUN) mg/dL 7-18 GLOMERULAR FILTRATION RATE (test code = GFR) 95-105 CREATININE (test code = CREAT) mg/dL 0.6-1.3 CALCIUM (test code = CA) mg/dL 8.0-10.5 HEPATIC FUNCTION [id number] 23:50:00* Test Item Value Reference Range Interpretation Comments TOTAL PROTEIN (test code = PROT) g/dL 6.4-8.2 ALBUMIN (test code = ALB) g/dL 3.4-5.0 BILIRUBIN TOTAL (test code = BILT) MG/DL <1.5 BILIRUBIN DIRECT (test code = BILD) MG/DL 0.0-0.30 SGOT/AST (test code = AST) IUnit/L 15-37 SGPT/ALT (test code = ALT) IUnit/L 15-65 ALKALINE PHOSPHATASE TOTAL (test code = ALKP) IUnit/L 20-125 [id number] 23:50:00* Test Item Value Reference Range Interpretation Comments LIPASE (test code = LIP) IUnit/L 73-393 [id number] 23:50:00* Test Item Value Reference Range Interpretation Comments MAGNESIUM (test code = MAG) mg/dL 1.8-2.4 TSH REFLEX TO [id number] 23:50:00* Test Item Value Reference Range Interpretation Comments TSH REFLEX TO FT4 (test code = TSHREFLEX) IU/mL 0.42-5.47 [id number] 23:50:00* Test Item Value Reference Range Interpretation Comments TROPONIN-I (test code = TROPI) < 0.015 ng/mL 0.000-0.045 N Negative: <= 0.045 Positive: >= 0.046 Correlation with serial results, other cardiac markers andclinical findings is necessary to determine the clinicalsignificance of this result. Results using different methodologies should not be comparedto one another as quantitative results may vary by method. BASIC METABOLIC [id number] 23:50:00* Test Item Value Reference Range Interpretation Comments SODIUM (test code = NA) 140 mEq/L 134-147 N POTASSIUM (test code = K) 3.9 mEq/L 3.4-5.0 N CHLORIDE (test code = CL) 109 mEq/L 100-108 H CARBON DIOXIDE (test code = CO2) 28 mEq/L 21-33 N ANION GAP (test code = GAP) 7 0-20 N GLUCOSE (test code = GLU) 109 mg/dL 70-110 N BLOOD UREA NITROGEN (test code = BUN) 18 mg/dL 7-18 N GLOMERULAR FILTRATION RATE (test code = GFR) 57.8 95-105 L Units of measure = ml/min/1.73 m2 CREATININE (test code = CREAT) 1.2 mg/dL 0.6-1.3 N CALCIUM (test code = CA) 8.4 mg/dL 8.0-10.5 N HEPATIC FUNCTION [id number] 23:50:00* Test Item Value Reference Range Interpretation Comments TOTAL PROTEIN (test code = PROT) 7.8 g/dL 6.4-8.2 N ALBUMIN (test code = ALB) 3.40 g/dL 3.4-5.0 N BILIRUBIN TOTAL (test code = BILT) 0.2 MG/DL <1.5 N BILIRUBIN DIRECT (test code = BILD) < 0.10 MG/DL 0.0-0.30 N BILIRUBIN INDIRECT (test code = BILIND) 0.10 MG/DL SGOT/AST (test code = AST) 12 IUnit/L 15-37 L SGPT/ALT (test code = ALT) 15 IUnit/L 15-65 N ALKALINE PHOSPHATASE TOTAL (test code = ALKP) 61 IUnit/L 20-125 N [id number] 23:50:00* Test Item Value Reference Range Interpretation Comments LIPASE (test code = LIP) 101 IUnit/L 73-393 N [id number] 23:50:00* Test Item Value Reference Range Interpretation Comments MAGNESIUM (test code = MAG) 2.00 mg/dL 1.8-2.4 N TSH REFLEX TO [id number] 23:50:00* Test Item Value Reference Range Interpretation Comments TSH REFLEX TO FT4 (test code = TSHREFLEX) IU/mL 0.42-5.47 [id number] 23:50:00* Test Item Value Reference Range Interpretation Comments TROPONIN-I (test code = TROPI) < 0.015 ng/mL 0.000-0.045 N Negative: <= 0.045 Positive: >= 0.046 Correlation with serial results, other cardiac markers andclinical findings is necessary to determine the clinicalsignificance of this result. Results using different methodologies should not be comparedto one another as quantitative results may vary by method. PROTHROMBIN [id number] 23:43:00* Test Item Value Reference Range Interpretation Comments PROTHROMBIN TIME PATIENT (test code = PTP) 12.1 SECONDS 9.3-12.9 N INTERNATIONAL NORMAL RATIO (test code = INR) 1.1 0.8-1.2 N TARGET INR BY INDICATION Indication INR1. Prophylaxis of venous thrombosis 2.0 - 3.0 (orthopedic surgery), Prophylaxis of venous thrombosis (other than high-risk surgery), Treatment of Deep Vein Thrombosis/Pulmonary Embolism, Prevention of systemic embolism - Tissue heart valves, Acute Myocardial Infarction (to prevent systemic embolism), Valvular heart disease, Atrial Fibrillation, Bileaflet mechanical valve in aortic position.2. Mechanical prosthetic valves (high risk), 2.5 - 3.5 Presence of Lupus Anticoagulant or Antiphospholipid Antibodies, Prevention of systemic embolism - Acute Myocardial Infarction (to prevent recurrent infarct). THROMBOPLASTIN TIME [id number] 23:43:00* Test Item Value Reference Range Interpretation Comments THROMBOPLASTIN TIME PARTIAL (test code = PTT) 32.5 Seconds 25.0-39. 5 N Therapeutic Range: 50.4 - 88.3 Seconds Effective 10/08/2018 CBC W/AUTO [id number] 23:31:00* Test Item Value Reference Range Interpretation Comments WHITE BLOOD CELL (test code = WBC) 7.07 x10 3/uL 4.5-11.0 N RED BLOOD CELL (test code = RBC) 3.21 x10 6/uL 3.54-5.02 L HEMOGLOBIN (test code = HGB) 10.9 g/dL 11.0-15.0 L HEMATOCRIT (test code = HCT) 32.3 % 33.0-45.0 L MEAN CELL VOLUME (test code = MCV) 100.6 fL 81.0-99.0 H MEAN CELL HGB (test code = MCH) 34.0 pg 27.0-33.0 H MEAN CELL HGB CONCETRATION (test code = MCHC) 33.7 g/dL 33.0-37. 0 N RED CELL DISTRIBUTION WIDTH CV (test code = RDW) 11.9 % 11.5- 14.5 N RED CELL DISTRIBUTION WIDTH SD (test code = RDW-SD) 43.6 fL 37 .0-54.0 N PLATELET COUNT (test code = PLT) 267 x10 3/uL 150-400 N MEAN PLATELET VOLUME (test code = MPV) 9.7 fL 7.0-9.0 H NEUTROPHIL % (test code = NT%) 52.9 % 56.0-77.0 L IMMATURE GRANULOCYTE % (test code = IG%) 0.4 % 0.0-2.0 N LYMPHOCYTE % (test code = LY%) 35.6 % 14.0-32.0 H MONOCYTE % (test code = MO%) 8.9 % 4.8-9.0 N EOSINOPHIL % (test code = EO%) 2.1 % 0.3-3.7 N BASOPHIL % (test code = BA%) 0.1 % 0.0-2.0 N NUCLEATED RBC % (test code = NRBC%) 0.0 % 0-0 N NEUTROPHIL # (test code = NT#) 3.73 x10 3/uL 2.0-7.6 N IMMATURE GRANULOCYTE # (test code = IG#) 0.03 x10 3/uL 0.00-0.03 N LYMPHOCYTE # (test code = LY#) 2.52 x10 3/uL 1.0-3.8 N MONOCYTE # (test code = MO#) 0.63 x10 3/uL 0.1-0.8 N EOSINOPHIL # (test code = EO#) 0.15 x10 3/uL 0.0-0.2 N BASOPHIL # (test code = BA#) 0.01 x10 3/uL 0.0-0.2 N NUCLEATED RBC # (test code = NRBC#) 0.00 x10 3/uL 0.0-0.1 N MANUAL DIFF REQUIRED (test code = MDIFF) NO - XR CHEST 1 [id number] 23:31:00 FAX: Klaus Gordon MD [phone] [place]: St: REG Name: [facility] : 11/[birth year]18 69 Age/S: 48/F [address] [place] [address] Unit #: [id number] Loc: [address] [address] Phys: Klaus Cha MD Acct: [id number] Dis Date: Status: REG ER PHONE #: [phone] Exam Date: 05/23/20192327 FAX #: [phone] Reason: Chest Pain EXAMS: CPT CODE: [id number] XR CHEST 1 V 96950 Chest x-ray 1 view History: Chest pain Comparison: Chest x-ray 04/04/2019 Findings: Mediastinum: The cardiomediastinal co ntours are unremarkable. Lungs and pleural spaces: There is no fo ana consolidation, pneumothorax or pleural effusion. The pulmonary vascul arity is normal. Impression: No acute ca rdiopulmonary findings. Electronically Signed by Sergio sullivan 05/23/2019 at 2331 Reported and signed by: Sandra bartholomew M.D. CC: Klaus Cha MD Technologist: Lisa Tadeo, RT(R); Jerman Kim RT(R) Trn scrd Date/Time/By: 05/23/2019 (0141) : By: [email or web address] Orig Print D/T: S : 05/23/2019 (6551) PAGE 1 Signed Report Lupus Anticoagulant [id number] 10:28:00* Test Item Value Reference Range Interpretation Comments DRVV Screen Ratio (test code = 17063745) 0.90 0.00- 1.20 Ra nathan PTT-LA Screen (test code = 04866983) 33.5 26.0- 40.0 Sec LA Interpretation (test code = 51045205) There is no e vidence of lupus anticoagulant by two screening tests (DRVV and PTT-LA). Unless there is a clinical suspicion, no further testing for LA is indicated. [facility] HealthcareAnticardiolipin Abs, IgA,IgG,IgM, [id number] 14:09:00* Test Item Value Reference Range Interpretation Comments Anticardiolipin Ab,IgG,Qn (test code = 3181-5) 9 0- [address] U/mL Negative: <15 Indeterminate: 15 - 20 Low-Med Positive: >20 - 80 High Positive: >80 Anticardiolipin Ab,IgM,Qn (test code = 3182-3) <9 0- [address] U/mL Negative: <13 Indeterminate: 13 - 20 Low-Med Positive: >20 - 80 High Positive: >80 Anticardiolipin Ab,IgA,Qn (test code = 5076-5) <9 0- [address] U/mL Negative: <12 Indeterminate: 12 - 20 Low-Med Positive: >20 - 80 High Positive: >80 GELY (test code = GELY) Performed at: [facility] [id number] Director: Rox Hernandez MD, Phone: [phone] [facility] HealthcareSjgren's Antibodies (Anti-SS-A/Anti-SS-B)2019-05-19 14:09:00* Test Item Value Reference Range Interpretation Comments Sjogren's Anti-SS-A (test code = 84985-2) <0.2 0.0- 0.9 AI Sjogren's Anti-SS-B (test code = 20925-7) <0.2 0.0- 0.9 AI GELY (test code = GELY) Performed at: [facility] [id number] Director: Ryan Thurman MD, Phone: [phone] [facility] HealthcareAnti-dsDNA by [id number] 12:08:00* Test Item Value Reference Range Interpretation Comments ANTI-DNA (DS) AB QN (test code = 31484907) Negative Negative Lab Interpretation (test code = 76703-5) [id number] 10:31:00* Test Item Value Reference Range Interpretation Comments Hepatitis C Virus (HCV) Antibody (test code = 60780-2) Negative Negative Hep B Surface Ag (test code = 5196-1) Negative Negative Hep A Vir Ab IgM (test code = 60736-4) Negative Negative Hep B Core Ab IgM (test code = 17911-0) Negative Negative Lab Interpretation (test code = 94729-0) [facility] [id number] 08:02:00* Test Item Value Reference Range Interpretation Comments Sodium (test code = 2951-2) 145 mmol/L 136-145 Potassium (test code = 2823-3) 4.5 mmol/L 3.5-5.1 Chloride (test code = 2075-0) 105 mmol/L 98-107 CO2 (test code = 45600370) 29 mmol/L 21-31 Urea Nitrogen (test code = 71560980) 18.0 mg/dL 7-25 Creatinine (test code = 62813994) 0.8 mg/dL 0.6-1.2 Glucose (test code = 11519366) 84 mg/dL 70-110 Calcium (test code = 79887108) 9.3 mg/dL 8.6-10.3 eGFR If Africn Am (test code = 51404209) >90 >=90 mL/min/1 .73 m2 Anion Gap (test code = 04810449) 11 mmol/L 5-16 Lab Interpretation (test code = 25915-2) Normal [facility] [Creatinine Kinase]2019-05-15 08:02:00* Test Item Value Reference Range Interpretation Comments CK (test code = 24900659) 54 U/L 30-223 Lab Interpretation (test code = 12776-1) Normal [facility] HealthcareLiver [id number] 08:02:00* Test Item Value Reference Range Interpretation Comments Bilirubin, Total (test code = 2885-2) 0.3 mg/dL 0.2-1.2 Alkaline Phosphatase (test code = 98704375) 45 U/L 34-104 AST (test code = 12780029) 15 U/L 13-39 Direct Bilirubin (test code = 1968-7) 0.1 mg/dL 0-0.2 ALT (test code = 97408851) 12 U/L 7-52 Albumin (test code = 51108-1) 4.0 g/dL 3.7-5.3 Lab Interpretation (test code = 57178-5) Normal [facility] HealthcareCRP (High Sensitivity)2019-05-15 08:02:00* Test Item Value Reference Range Interpretation Comments CRP, High Sensitivity (Cardiac) (test code = 21183842) 7.1 mg/L <1.0 H Lab Interpretation (test code = 74281-4) Abnormal [facility] HealthcareCBC/Pdtx9782-54-20 07:37:00* Test Item Value Reference Range Interpretation Comments WBC (test code = 6690-2) 5.3 K/uL 4.5-11 RBC (test code = 789-8) 3.36 4.20- 5.40 M/uL L Hemoglobin (test code = 718-7) 11.6 g/dL 12-16 L Hematocrit (test code = 4544-3) 35.2 % 37-47 L MCV (test code = 787-2) 104.8 fL 82-92 H MCH (test code = 785-6) 34.5 pg 27-32 H MCHC (test code = 786-4) 33.0 g/dL 32-36 RDW (test code = 45828-7) 48.7 fL 36.4-46.3 H Platelet (test code = 777-3) 282 K/uL 150-400 Mean Platelet Volume (test code = 01655-9) 10.1 fL 9.4-12.4 Percent NRBC (test code = 56728352) 0.0 % Neutrophil (test code = 770-8) 40.6 % 34-70 Lymphs (test code = 736-9) 48.9 % 20-50 Monocytes (test code = 5905-5) 7.6 % 5-12 Eos (test code = 713-8) 2.5 % 0.7-5 Basos (test code = 706-2) 0.2 % 0.1-1.2 Immature Granulocytes (test code = 57095147) 0.2 % 0-0.5 Neutrophils (Absolute) (test code = 93296278) 2.14 K/uL 1.56-6.1 3 Lymphs (Absolute) (test code = 29629732) 2.57 K/uL 1.18-3.74 Monocytes(Absolute) (test code = 65950823) 0.40 K/uL 0.24-0.36 H Eos (Absolute) (test code = 59139352) 0.13 K/uL 0.04-0.36 Baso (Absolute) (test code = 40618076) 0.01 K/uL 0.01-0.08 Immature Grans (Abs) (test code = 38644087) 0.01 K/uL 0-0.03 Absolute NRBC (test code = 92822119) 0.00 K/uL Lab Interpretation (test code = 97850-9) [facility]normal [facility]68[facility] 20:57:00* Test Item Value Reference Range Interpretation Comments Color (test code = 20722018) Straw Colorless, Straw, Yellow Clarity (test code = 10728508) Clear Clear Spec [place], Ur (test code = 85314872) 1.014 1.001-1.035 pH, Ur (test code = 10203035) 7.0 5.0-8.0 Protein, Ur (test code = 90022189) Negative Negative mg/dL Glucose, Ur (test code = 72332679) Negative Negative mg/dL Ketone, Ur (test code = 03791478) Negative Negative mg/dL Bilirubin, Ur (test code = 07031760) Negative Negative mg/dL Nitrite, Ur (test code = 16438225) Negative Negative Leukocyte (test code = 66429357) Negative Negative mg/dL Blood, Ur (test code = 45598808) Negative Negative mg/dL Urobilinogen, Ur (test code = 19192697) <1.0 <1.0 EU/dL Lab Interpretation (test code = 83094-2) [facility] 08:07:00* Test Item Value Reference Range Interpretation Comments TROPONIN-I (test code = TROPI) < 0.015 ng/mL 0.000-0.045 N Negative: <= 0.045 Positive: >= 0.046 Correlation with serial results, other cardiac markers andclinical findings is necessary to determine the clinicalsignificance of this result. Results using different methodologies should not be comparedto one another as quantitative results may vary by method. COMMENTS: 3 troponins total (including troponin done in ED)BASIC METABOLIC PANEL 2019-04-05 07:47:00* Test Item Value Reference Range Interpretation Comments SODIUM (test code = NA) 141 mEq/L 134-147 N POTASSIUM (test code = K) 3.5 mEq/L 3.4-5.0 N CHLORIDE (test code = CL) 107 mEq/L 100-108 N CARBON DIOXIDE (test code = CO2) 28 mEq/L 21-33 N ANION GAP (test code = GAP) 10 0-20 N GLUCOSE (test code = GLU) 94 mg/dL 70-110 N BLOOD UREA NITROGEN (test code = BUN) 15 mg/dL 7-18 N GLOMERULAR FILTRATION RATE (test code = GFR) 128.6 95-105 H Units of measure = ml/min/1.73 m2 CREATININE (test code = CREAT) 0.6 mg/dL 0.6-1.3 N CALCIUM (test code = CA) 9.2 mg/dL 8.0-10.5 N LIPID PROFILE (CORONARY RISK)2019-04-05 07:47:00* Test Item Value Reference Range Interpretation Comments TRIGLYCERIDES (test code = TRIG) 70 mg/dL 40-150 N CHOLESTEROL (test code = CHOL) 162 mg/dL <200 CHOLESTEROL/HDL RATIO (test code = CHOLHDL) 2.89 RATIO 3.27-4.44 L RISK ASSOCIATED WITH CHOL/HDL RATIOS: RISK MALE FEMALE1/2 AVERAGE 3.43 3.27AVERAGE 4.97 4.442X AVERAGE 9.55 7.053X AVERAGE 23.39 11.04 NOTE THAT THE REFERENCE VALUE IS RELATEDTO RISK LEVELS RECOMMENDED BY THE NATL.HEART, LUNG, AND BLOOD INST. HDL CHOLESTEROL (test code = HDL) 56.0 mg/dL 39-96 N LIPOPROTEIN LDL (test code = LDL) 91 mg/dL 0-100 N <100 [id number] NEAR OPTIMAL/ABOVE [id number] HIGH>NI=107 VERY HIGH*Guidelines provided by the National Cholesterol EducationProgram Adult Treatment Panel III - CT ANGIO [id number] 07:37:00 [facility] 1970 Age/S: 48 / F [address] [place] [address] Blvd Unit #: [id number] Loc: [place] [address] Phys: Sukhwinder Soriano MD Acct: [id number] Dis Date: Status: ADM IN PHONE #: [phone] Exam Date: 04/04/2019 2350 FAX #: [phone] Reason: CP, CAD, H/O PE EXAMS: CPT CODE: [id number] CT ANGIO CHEST [address] CHEST CTA WITH CONTRAST WITH 3D RECONSTRUCTIONS. INDICATION: Chest pain. Coronary artery disease. History of pulmonary embolism. COMPARISON: None. TECHNIQUE: Helical axial images were obtained from the level of the thoracic inlet to the diaphragm at [address] angiographic protocol with coronal and sagittal reconstructions. 3-dimensional reconstructed/reformatted images were also performed and reviewed. DOSE: CT imaging performed at this location utilizes radiation dose optim ization technique which includes one or more of the followin) Automate d exposure control; 2) Adjustment of the mA and/or kV according to patient 's size; 3) Use of iterative reconstruction techniques. DLP: 404 m Gy-cm IV contrast: 100 mL Isovue-300 FINDINGS: MEDIASTINUM: The visualized airway is clear. Calcified right hilar lymph nodes are present. No mediastinal adenopathy. No esophageal abnormality i dentified. HEART: Heart is normal in size without pericardial effu fransisco. Heavy coronary artery calcifications are present. GREA T VESSELS: The ascending thoracic aorta measures 3.2 cm diameter. Mild ana cified plaque is seen of the thoracic aorta without flow-limiting stenosis or dissection flaps. Bovine aortic arch is noted. No filling defects iden tified in the main pulmonary arteries or proximal segmental branches bilat erally. LUNGS/PLEURA: Dependent atelectasis is seen bilaterally. P unctate 1 mm density in the left upper lobe present. Minimal linear atelec tasis or scar in the right upper lobe present. Lungs are otherwise clear. No pneumothorax or pleural effusion bilaterally. UPPER ABDOM EN: Calcified granulomata are seen in the spleen. 2.2 cm round fluid densi ty cyst in the superior pole right kidney. CHEST WALL: No suspicio us osseous abnormality. PAGE 1 Signed Report (CONTINUED) Name: EVA MG [facility] : 1970 Age/S: 48 / F [address] Unit #: [id number] Loc: [place] [address] Phys: Sukhwinder Soriano MD Acct: [id number] Dis Date: Status: ADM IN PHONE #: [phone] Exam Date: 04/04/2019 2350 FAX #: [phone] Reason: CP, CAD, H/O PE EXAMS: CPT CODE: [id number] CT ANGIO CHEST 30150 < Continued> IMPRESSION: 1. No CT evidence for acute pulmonary embolus or thoracic aortic dissection. 2. No acute pulmonary findings. 3. Heavy coronary artery calcifications. 4. Prior granulomatous disease. 5. Right renal cyst. SL: [id number] at 0737 Reported and signed by: Roberto Lee M.D. CC: Sukhwinder Soriano MD Technologist:Joan Mccracken, RT(R)(CT) CTDI: DLP: Trnscb Date/Time: 04/05/2019 (0737) [email or web address] Orig Print D/T: S: 04/05/2019 (0740) PAGE 2 Signed Report CBC W/AUTO [id number] 06:17:00* Test Item Value Reference Range Interpretation Comments WHITE BLOOD CELL (test code = WBC) 7.95 x10 3/uL 4.5-11.0 N RED BLOOD CELL (test code = RBC) 3.41 x10 6/uL 3.54-5.02 L HEMOGLOBIN (test code = HGB) 11.9 g/dL 11.0-15.0 N HEMATOCRIT (test code = HCT) 34.8 % 33.0-45.0 N MEAN CELL VOLUME (test code = MCV) 102.1 fL 81.0-99.0 H MEAN CELL HGB (test code = MCH) 34.9 pg 27.0-33.0 H MEAN CELL HGB CONCETRATION (test code = MCHC) 34.2 g/dL 33.0-37. 0 N RED CELL DISTRIBUTION WIDTH CV (test code = RDW) 13.3 % 11.5- 14.5 N RED CELL DISTRIBUTION WIDTH SD (test code = RDW-SD) 49.9 fL 37 .0-54.0 N PLATELET COUNT (test code = PLT) 282 x10 3/uL 150-400 N MEAN PLATELET VOLUME (test code = MPV) 9.4 fL 7.0-9.0 H NEUTROPHIL % (test code = NT%) 49.9 % 56.0-77.0 L IMMATURE GRANULOCYTE % (test code = IG%) 0.1 % 0.0-2.0 N LYMPHOCYTE % (test code = LY%) 42.1 % 14.0-32.0 H MONOCYTE % (test code = MO%) 6.4 % 4.8-9.0 N EOSINOPHIL % (test code = EO%) 1.4 % 0.3-3.7 N BASOPHIL % (test code = BA%) 0.1 % 0.0-2.0 N NUCLEATED RBC % (test code = NRBC%) 0.0 % 0-0 N NEUTROPHIL # (test code = NT#) 3.96 x10 3/uL 2.0-7.6 N IMMATURE GRANULOCYTE # (test code = IG#) 0.01 x10 3/uL 0.00-0.03 N LYMPHOCYTE # (test code = LY#) 3.35 x10 3/uL 1.0-3.8 N MONOCYTE # (test code = MO#) 0.51 x10 3/uL 0.1-0.8 N EOSINOPHIL # (test code = EO#) 0.11 x10 3/uL 0.0-0.2 N BASOPHIL # (test code = BA#) 0.01 x10 3/uL 0.0-0.2 N NUCLEATED RBC # (test code = NRBC#) 0.00 x10 3/uL 0.0-0.1 N MANUAL DIFF REQUIRED (test code = MDIFF) NO SED RATE [id number] 03:25:00* Test Item Value Reference Range Interpretation Comments SED RATE MARK (test code = SEDW) 50 mm/hr 0-20 H [id number] 02:29:00* Test Item Value Reference Range Interpretation Comments TROPONIN-I (test code = TROPI) < 0.015 ng/mL 0.000-0.045 N Negative: <= 0.045 Positive: >= 0.046 Correlation with serial results, other cardiac markers andclinical findings is necessary to determine the clinicalsignificance of this result. Results using different methodologies should not be comparedto one another as quantitative results may vary by method. COMMENTS: 3 troponins total (including troponin done in ED)T4 [id number] 00:08:00* Test Item Value Reference Range Interpretation Comments T4 FREE (test code = T4F) 0.8 ng/dL 0.77-1.61 N THYROID STIMULATING [id number] 00:08:00* Test Item Value Reference Range Interpretation Comments THYROID STIMULATING HORMONE (test code = TSH) 0.73 0.42-5.4 7 N Results in nael- International Units/mL DRUGS OF ABUSE SCREEN [id number] 22:58:00* Test Item Value Reference Range Interpretation Comments URN COCAINE (test code = COCAURN) NEGATIVE NEGATIVE URN CANNABINOIDS (test code = CANNABURN) POSITIVE NEGATIVE A URN AMPHETAMINE (test code = AMPHETURN) NEGATIVE NEGATIVE URN BARBITURATE (test code = BARBITURN) NEGATIVE NEGATIVE URN BENZODIAZEPINE (test code = BENZOURN) NEGATIVE NEGATIVE Cut-off value:200 ng/mL URN OPIATES (test code = OPIATURN) POSITIVE NEGATIVE A Cut-off value:2000 ng/mL URN PHENCYCLIDINE (PCP) (test code = PHENCURN) NEGATIVE NEGATIV E Cutoffs:Barbiturates 200 ng/mLBenzodiazepines 200 ng/mLTHC Cannabinoids 50 ng/mLOpiates(Morphine) 2000 ng/mLAmphetamine 1000 ng/mLCocaine 300 ng/mLPCP phencyclidine 25 ng/mL Unconfirmed screening results shouldnot be used for non-medical purposes. DRUGS OF ABUSE SCREEN [id number] 22:46:00* Test Item Value Reference Range Interpretation Comments URN COCAINE (test code = COCAURN) NEGATIVE NEGATIVE URN CANNABINOIDS (test code = CANNABURN) NEGATIVE URN AMPHETAMINE (test code = AMPHETURN) NEGATIVE NEGATIVE URN BARBITURATE (test code = BARBITURN) NEGATIVE NEGATIVE URN BENZODIAZEPINE (test code = BENZOURN) NEGATIVE NEGATIVE Cut-off value:200 ng/mL URN OPIATES (test code = OPIATURN) NEGATIVE URN PHENCYCLIDINE (PCP) (test code = PHENCURN) NEGATIVE NEGATIV E Cutoffs:Barbiturates 200 ng/mLBenzodiazepines 200 ng/mLTHC Cannabinoids 50 ng/mLOpiates(Morphine) 2000 ng/mLAmphetamine 1000 ng/mLCocaine 300 ng/mLPCP phencyclidine 25 ng/mL Unconfirmed screening results shouldnot be used for non-medical purposes. URINALYSIS [id number] 22:40:00* Test Item Value Reference Range Interpretation Comments UA COLOR (test code = COLU) YELLOW YEL/STRAW UA APPEARANCE (test code = APPU) CLEAR CLEAR UA GLUCOSE DIPSTICK (test code = DGLUU) NEGATIVE NEGATIVE UA BILIRUBIN DIPSTICK (test code = BILU) NEGATIVE NEGATIVE UA KETONE DIPSTICK (test code = KETU) NEGATIVE NEGATIVE UA SPECIFIC GRAVITY (test code = SGU) 1.011 1.005-1.030 N UA BLOOD DIPSTICK (test code = DARREN) NEGATIVE NEGATIVE UA PH DIPSTICK (test code = LUBA) 5.0 5.0-7.0 N UA PROTEIN DIPSTICK (test code = PROU) NEGATIVE NEGATIVE UA UROBILINIOGEN DIPSTICK (test code = URO) 0.2 mg/dL 0.2-1.0 UA NITRITE DIPSTICK (test code = SHAD) NEGATIVE NEGATIVE UA LEUKOCYTE ESTERASE DIPSTICK (test code = LEUU) NEGATIVE NEGA TIVE UA RBC (test code = RBCU) 0-3 RBC/HPF 0-3 UA WBC NO REFLEX (test code = WBCUCL) 0-3 WBC/HPF 0-3 UA BACTERIA (test code = BACU) NONE SEEN /HPF NONE SEEN UA SQUAMOUS CELLS (test code = SQU) 0-5 /HPF NONE SEEN UA HYALINE CAST (test code = HYALU) 3-5 /LPF NONE SEEN UA MUCUS (test code = MUCU) TRACE /LPF NONE SEEN BASIC METABOLIC [id number] 21:24:00* Test Item Value Reference Range Interpretation Comments SODIUM (test code = NA) 141 mEq/L 134-147 N POTASSIUM (test code = K) 3.5 mEq/L 3.4-5.0 N CHLORIDE (test code = CL) 106 mEq/L 100-108 N CARBON DIOXIDE (test code = CO2) 27 mEq/L 21-33 N ANION GAP (test code = GAP) 12 0-20 N GLUCOSE (test code = GLU) 112 mg/dL 70-110 H BLOOD UREA NITROGEN (test code = BUN) 17 mg/dL 7-18 N GLOMERULAR FILTRATION RATE (test code = GFR) 107.6 95-105 H Units of measure = ml/min/1.73 m2 CREATININE (test code = CREAT) 0.7 mg/dL 0.6-1.3 N CALCIUM (test code = CA) 9.1 mg/dL 8.0-10.5 N B-TYPE NATRIURETIC [id number] 21:24:00* Test Item Value Reference Range Interpretation Comments B-TYPE NATRIURETIC PEPTIDE (test code = BNP) 8.5 PG/ML 0-100 N BASIC METABOLIC [id number] 21:20:00* Test Item Value Reference Range Interpretation Comments SODIUM (test code = NA) 141 mEq/L 134-147 N POTASSIUM (test code = K) 3.5 mEq/L 3.4-5.0 N CHLORIDE (test code = CL) 106 mEq/L 100-108 N CARBON DIOXIDE (test code = CO2) 27 mEq/L 21-33 N ANION GAP (test code = GAP) 12 0-20 N GLUCOSE (test code = GLU) 112 mg/dL 70-110 H BLOOD UREA NITROGEN (test code = BUN) 17 mg/dL 7-18 N GLOMERULAR FILTRATION RATE (test code = GFR) 95-105 CREATININE (test code = CREAT) mg/dL 0.6-1.3 CALCIUM (test code = CA) 9.1 mg/dL 8.0-10.5 N - XR CHEST 1 [id number] 21:01:00 FAX: Robyn Sánchez NP [phone] [place]: [address]: PRE Name: EVA [facility] [place] : [birth year] Age/S: 48/F [address] [place] [address] Unit #: [id number] Loc: [place] [address] Phys: Robyn Sánchez PAPER MILL MANAGER Acct: [id number] Dis Date: Status: PRE ER PHONE #: [phone] Exam Date: 04/04/20192044 FAX #: [phone] Reason: Chest Pain EXAMS: CPT CODE: [id number] XR CHEST 1 V 49224 PROCEDURE: Chest, AP on 04/2019 at 2044 hours. INDICATION: Chest Pain. DULCE RISON: None. FINDINGS: Support tubes, catheters, devices: None. There are no visualized pleural effusions. The visualized po rtions of the lungs are clear with normal pulmonary vasculature. The media stinal silhouette and jaz appear normal. No evidence for an acute bony abnormality. IMPRESSION: 1. No evidence for an acu te cardiopulmonary process. SL: FIORELLA at 210 Reported and signed by: Rodney Vance M.D. CC: Robyn Sánchez PAPER MILL MANAGER Technologist: RT Sophie(R); RT Aileen(R)R Trnscrd Date/Time/By: 04/04/2019 (2100) : By: Dillan [id number] Orig Print D/T: S: 04/04/2019 (2103) PAG E 1 Signed Report HEPATIC FUNCTION [id number] 20:58:00* Test Item Value Reference Range Interpretation Comments TOTAL PROTEIN (test code = PROT) 8.6 g/dL 6.4-8.2 H ALBUMIN (test code = ALB) 3.60 g/dL 3.4-5.0 N BILIRUBIN TOTAL (test code = BILT) 0.4 MG/DL <1.5 N BILIRUBIN DIRECT (test code = BILD) < 0.10 MG/DL 0.0-0.30 N BILIRUBIN INDIRECT (test code = BILIND) 0.30 MG/DL SGOT/AST (test code = AST) 32 IUnit/L 15-37 N SGPT/ALT (test code = ALT) 19 IUnit/L 15-65 N ALKALINE PHOSPHATASE TOTAL (test code = ALKP) 55 IUnit/L 20-125 N [id number] 20:58:00* Test Item Value Reference Range Interpretation Comments MAGNESIUM (test code = MAG) 2.10 mg/dL 1.8-2.4 N HCG SERUM [id number] 20:58:00* Test Item Value Reference Range Interpretation Comments HCG SERUM QUAL (test code = HCGQL) SERUM NEGATIVE NEGATIVE PROTHROMBIN [id number] 20:51:00* Test Item Value Reference Range Interpretation Comments PROTHROMBIN TIME PATIENT (test code = PTP) 12.2 SECONDS 9.3-12.9 N INTERNATIONAL NORMAL RATIO (test code = INR) 1.1 0.8-1.2 N TARGET INR BY INDICATION Indication INR1. Prophylaxis of venous thrombosis 2.0 - 3.0 (orthopedic surgery), Prophylaxis of venous thrombosis (other than high-risk surgery), Treatment of Deep Vein Thrombosis/Pulmonary Embolism, Prevention of systemic embolism - Tissue heart valves, Acute Myocardial Infarction (to prevent systemic embolism), Valvular heart disease, Atrial Fibrillation, Bileaflet mechanical valve in aortic position.2. Mechanical prosthetic valves (high risk), 2.5 - 3.5 Presence of Lupus Anticoagulant or Antiphospholipid Antibodies, Prevention of systemic embolism - Acute Myocardial Infarction (to prevent recurrent infarct). [id number] 20:51:00* Test Item Value Reference Range Interpretation Comments D-DIMER (test code = DDIMER) 496 ng/mlFEU <=500 N THROMBOSIS AND/OR PULMONARY EMBOLISM AND THE CLINICAL CUT- OFF VALUE FOR EXCLUSION (500 ng/mL FEU) OF THESE CONDITIONSIS VALIDATED BY THE HEATER OPERATOR HELPER OF THE METHOD. A NEGATIVE D-DIMER RESULT WHEN COMBINED WITH A CLINICALASSESSMENT OF LOW PRETEST PROBABILITY HAS BEEN SHOWN TO HAVEA HIGH NEGATIVE PREDICTIVE VALUE OF DVT OR PE. D-DIMER VALUES >500 ng/mL FEU ARE NOT DIAGNOSTIC FOR DVT, PEor DIC WITHOUT OTHER CONFIRMATORY TESTS AND APPROPRIATECLINICAL EUALUATIONS. HEPATIC FUNCTION [id number] 20:49:00* Test Item Value Reference Range Interpretation Comments TOTAL PROTEIN (test code = PROT) g/dL 6.4-8.2 ALBUMIN (test code = ALB) g/dL 3.4-5.0 BILIRUBIN TOTAL (test code = BILT) MG/DL <1.5 BILIRUBIN DIRECT (test code = BILD) MG/DL 0.0-0.30 SGOT/AST (test code = AST) IUnit/L 15-37 SGPT/ALT (test code = ALT) IUnit/L 15-65 ALKALINE PHOSPHATASE TOTAL (test code = ALKP) IUnit/L 20-125 [id number] 20:49:00* Test Item Value Reference Range Interpretation Comments MAGNESIUM (test code = MAG) mg/dL 1.8-2.4 HCG SERUM [id number] 20:49:00* Test Item Value Reference Range Interpretation Comments HCG SERUM QUAL (test code = HCGQL) SERUM NEGATIVE NEGATIVE TROPONIN-I [id number] 20:48:00* Test Item Value Reference Range Interpretation Comments TROPONIN-I RAPID (test code = TROPIRAP) 0.00 ng/mL 0.00-0.08 N Performed by certified ski lift operator at [facility] Negative: <= 0.08 Positive: >= 0.09An elevated troponin value alone is not sufficient todiagnose a myocardial infarction. Rather, the patient sclinical presentation (history, physical exam) and ECGshould be used in conjunction with troponin in thediagnostic evaluation of suspected myocardial infarction. Aserial sampling protocol is recommended to facilitate the identification of temporal changes in troponin levels characteristic of [place]. CBC W/AUTO [id number] 20:47:00* Test Item Value Reference Range Interpretation Comments WHITE BLOOD CELL (test code = WBC) 8.69 x10 3/uL 4.5-11.0 N RED BLOOD CELL (test code = RBC) 3.61 x10 6/uL 3.54-5.02 N HEMOGLOBIN (test code = HGB) 12.8 g/dL 11.0-15.0 N HEMATOCRIT (test code = HCT) 37.1 % 33.0-45.0 N MEAN CELL VOLUME (test code = MCV) 102.8 fL 81.0-99.0 H MEAN CELL HGB (test code = MCH) 35.5 pg 27.0-33.0 H MEAN CELL HGB CONCETRATION (test code = MCHC) 34.5 g/dL 33.0-37. 0 N RED CELL DISTRIBUTION WIDTH CV (test code = RDW) 14.1 % 11.5- 14.5 N RED CELL DISTRIBUTION WIDTH SD (test code = RDW-SD) 51.8 fL 37 .0-54.0 N PLATELET COUNT (test code = PLT) 267 x10 3/uL 150-400 N MEAN PLATELET VOLUME (test code = MPV) 9.8 fL 7.0-9.0 H NEUTROPHIL % (test code = NT%) 73.1 % 56.0-77.0 N IMMATURE GRANULOCYTE % (test code = IG%) 0.5 % 0.0-2.0 N LYMPHOCYTE % (test code = LY%) 18.8 % 14.0-32.0 N MONOCYTE % (test code = MO%) 6.3 % 4.8-9.0 N EOSINOPHIL % (test code = EO%) 1.2 % 0.3-3.7 N BASOPHIL % (test code = BA%) 0.1 % 0.0-2.0 N NUCLEATED RBC % (test code = NRBC%) 0.0 % 0-0 N NEUTROPHIL # (test code = NT#) 6.36 x10 3/uL 2.0-7.6 N IMMATURE GRANULOCYTE # (test code = IG#) 0.04 x10 3/uL 0.00-0.03 H LYMPHOCYTE # (test code = LY#) 1.63 x10 3/uL 1.0-3.8 N MONOCYTE # (test code = MO#) 0.55 x10 3/uL 0.1-0.8 N EOSINOPHIL # (test code = EO#) 0.10 x10 3/uL 0.0-0.2 N BASOPHIL # (test code = BA#) 0.01 x10 3/uL 0.0-0.2 N NUCLEATED RBC # (test code = NRBC#) 0.00 x10 3/uL 0.0-0.1 N MANUAL DIFF REQUIRED (test code = MDIFF) NO CHEMISTRY 8 [id number] 20:41:00* Test Item Value Reference Range Interpretation Comments ISTAT-SODIUM (test code = NAP) MMOL/L 134-147 ISTAT-POTASSIUM (test code = KP) MMOL/L 3.4-5.0 ISTAT-CHLORIDE (test code = CLP) MMOL/L 100-108 ISTAT CARBON DIOXIDE (test code = ISTAT-CO2) mmol/L 21-33 N ISTAT CALCIUM IONIZED (test code = ISTAT-TIMUR) MG/DL 1.12-1.3 2 ISTAT-GLUCOSE (test code = GLUP) MG/DL 70-110 N ISTAT-BUN (test code = BUNP) MG/DL 7-18 H BEDSIDE CREATININE (test code = CREATBED) MG/DL 0.6-1.3 N GLOMERULAR FILTRATION RATE POC (test code = GFRBED) 81 ML/MIN CHEMISTRY 8 [id number] 20:41:00* Test Item Value Reference Range Interpretation Comments ISTAT-SODIUM (test code = NAP) 137 MMOL/L 134-147 N ISTAT-POTASSIUM (test code = KP) 8.1 MMOL/L 3.4-5.0 HH ISTAT-CHLORIDE (test code = CLP) 106 MMOL/L 100-108 N Performed by certified ski lift operator at [facility] ISTAT CARBON DIOXIDE (test code = ISTAT-CO2) 30.0 mmol/L 21-33 N ISTAT CALCIUM IONIZED (test code = ISTAT-TIMUR) 0.91 MG/DL 1.12-1.3 2 L ISTAT-GLUCOSE (test code = GLUP) 108 MG/DL 70-110 N ISTAT-BUN (test code = BUNP) 23 MG/DL 7-18 H BEDSIDE CREATININE (test code = CREATBED) 0.8 MG/DL 0.6-1.3 N GLOMERULAR FILTRATION RATE POC (test code = GFRBED) 81 ML/MIN RAD, CHEST, 1 VIEW, NON [id number] 00:54:00Reason for exam:->sobIs the patient ?->NoShould this be performed at the bedside?->YesFINAL REPORT Chest, 1 view. History: Shortness of breath Comparison: Plain radiograph the chest dated 12/31/2018.. IMPRESSION: The cardiomediastinal silhouette and pulmonary vasculature are within normal limits for a portable exam. Hazy airspace opacities in the bilateral left greater than right lower lobes may be related atelectasis however atypical infection can have a similar appearance the proper clinical setting consider upright PA and lateral radi ograph further evaluation as clinically indicated. No lobar consolidation. No pl eural effusion or pneumothorax. Osseous structures are grossly unremarkable. Sig bola: Marietta Lomax MDReport Verified Date/Time: 01/29/2019 00:54:37 Sana ctronically signed by: MARIETTA LOMAX MD on 01/29/2019 12:54 AM [id number] 22:52:00* Test Item Value Reference Range Interpretation Comments D-DIMER QUANTITATIVE (BEAKER) (test code = 671) 0.47 MG/L FEU <0.50 Intended Use: The D-Dimer Assay can be used to aid in the diagnosis of Deep Vein Thrombosis (DVT) and Pulmonary Embolism Disease (PED).In patients with low pre- test probability, various studies concerning STA Liatest D-dimer test have repor sandy that with a cutoff value of 0.50 MG/L FEU, the Negative Predictive Value (PAPER MILL MANAGER V) regarding the exclusion of thrombosis is within 95-100% range.TROPONIN I 2019-01-28 22:27:00* Test Item Value Reference Range Interpretation Comments TROPONIN I (BEAKER) (test code = 397) < ng/mL 0.00-0.03 Troponin I (TnI) levels must be interpreted in the context of the presenting sym ptoms and the clinical findings. Elevated TnI levels indicate myocardial damage, but are not specific for ischemic heart disease. Elevated TnI levels are seen in patients with other cardiac conditions (including myocarditis and congestive h eart failure), and slight TnI elevations occur in patients with other conditions , including sepsis, renal failure, acidosis, acute neurological disease, and per sistent tachyarrhythmia.B-TYPE NATRIURETIC FACTOR (BNP)2019-01-28 22:27:00* Test Item Value Reference Range Interpretation Comments B-TYPE NATRIURETIC PEPTIDE (BEAKER) (test code = 700) < pg/mL 0-100 BASIC METABOLIC [id number] 22:20:00* Test Item Value Reference Range Interpretation Comments SODIUM (BEAKER) (test code = 381) 142 meq/L 136-145 POTASSIUM (BEAKER) (test code = 379) 3.5 meq/L 3.5-5.1 CHLORIDE (BEAKER) (test code = 382) 104 meq/L 98-107 CO2 (BEAKER) (test code = 355) 26 meq/L 22-29 BLOOD UREA NITROGEN (BEAKER) (test code = 354) 10 mg/dL 7-21 CREATININE (BEAKER) (test code = 358) 0.90 mg/dL 0.57-1.25 GLUCOSE RANDOM (BEAKER) (test code = 652) 114 mg/dL 70-105 H CALCIUM (BEAKER) (test code = 697) 9.8 mg/dL 8.4-10.2 EGFR (BEAKER) (test code = 1092) 81 mL/min/1.73 sq m ESTIMATED GFR IS NOT ACCURATE CREATININE CLEARANCE IN PREDICTING GLOMERULAR FILTRATION RATE. ESTIMATED GFR IS NOT APPLICABLE FOR DIALYSIS PATIENTS. CREATINE KINASE (CK)2019-01-28 22:20:00* Test Item Value Reference Range Interpretation Comments CREATINE KINASE TOTAL (BEAKER) (test code = 380) 88 U/L 29-20 0 CBC W/PLT COUNT & AUTO [id number] 22:10:00* Test Item Value Reference Range Interpretation Comments WHITE BLOOD CELL COUNT (BEAKER) (test code = 775) 6.7 K/ L 3.5- 10.5 RED BLOOD CELL COUNT (BEAKER) (test code = 761) 3.77 M/ L 3.93-5 .22 L HEMOGLOBIN (BEAKER) (test code = 410) 12.9 GM/DL 11.2-15.7 HEMATOCRIT (BEAKER) (test code = 411) 38.6 % 34.1-44.9 MEAN CORPUSCULAR VOLUME (BEAKER) (test code = 753) 102.4 fL 79. 4-94.8 H MEAN CORPUSCULAR HEMOGLOBIN (BEAKER) (test code = 751) 34.2 pg 25.6-32.2 H MEAN CORPUSCULAR HEMOGLOBIN CONC (BEAKER) (test code = 752) 33.4 GM/DL 32.2-35.5 RED CELL DISTRIBUTION WIDTH (BEAKER) (test code = 412) 15.0 % 11.7-14.4 H PLATELET COUNT (BEAKER) (test code = 756) 286 K/CU MM 150-450 MEAN PLATELET VOLUME (BEAKER) (test code = 754) 10.1 fL 9.4-12 .3 NUCLEATED RED BLOOD CELLS (BEAKER) (test code = 413) 0 /100 WBC 0 -0 NEUTROPHILS RELATIVE PERCENT (BEAKER) (test code = 429) 47 % LYMPHOCYTES RELATIVE PERCENT (BEAKER) (test code = 430) 45 % MONOCYTES RELATIVE PERCENT (BEAKER) (test code = 431) 6 % EOSINOPHILS RELATIVE PERCENT (BEAKER) (test code = 432) 1 % BASOPHILS RELATIVE PERCENT (BEAKER) (test code = 437) 0 % NEUTROPHILS ABSOLUTE COUNT (BEAKER) (test code = 670) 3.18 K/ L 1.56-6.13 LYMPHOCYTES ABSOLUTE COUNT (BEAKER) (test code = 414) 3.04 K/ L 1.18-3.74 MONOCYTES ABSOLUTE COUNT (BEAKER) (test code = 415) 0.39 K/ L 0. 24-0.36 H EOSINOPHILS ABSOLUTE COUNT (BEAKER) (test code = 416) 0.09 K/ L 0.04-0.36 BASOPHILS ABSOLUTE COUNT (BEAKER) (test code = 417) 0.01 K/ L 0. 01-0.08 IMMATURE GRANULOCYTES-RELATIVE PERCENT (BEAKER) (test code = 2801) 0 % 0-1 DRUG [id number] 14:34:00Positive *ABN*(01/28/19 9:34 AM)[id number] 14:34:00See Note (01/28/19 9:34 AM)[facility] 2019-01-28 14:34:00Positive *ABN*(01/28/19 9:34 AM)[facility] 2019-[facility]-28 14:34:00Negative *NA*(01/28/19 9:34 AM)[facility] 14:34:00Negative *NA*(01/28/19 9:34 AM)[facility]28 14:34:00Negative *NA*(01/28/19 9:34 AM)[facility] 2019-[facility]28 14:34:00Negative *NA*(01/28/19 9:34 AM)[facility] 2019-[facility]-28 14:34:00Negative *NA*(01/28/19 9:34 AM)[facility] 2019-01-28 14:34:00<=1.0[facility] [id number] 14:34:001 [facility] [id number] 14:34:001[facility] [id number] 14:34:00Negative *NA*(01/28/19 9:34 AM)[facility] AIAXL8513[facility]51-81 14:34:00Negative (01/28/19 9:34 AM)[facility] ST[facility]OL 2019-01-28 14:34:00Negative (01/28/19 9:34 AM)[facility] 2019-01-28 14:34:005[facility] PEQCN3546-47-55 14:34:00* Test Item Value Reference Range Interpretation Comments UA Spec Grav (test code = UA Spec Grav) 1.012 1 [facility] DFSJD6606-43-63 14:34:00* Test Item Value Reference Range Interpretation Comments UA pH (test code = UA pH) 5.0 1 5.0-8.0 [facility] SACAO9801-81-98 14:34:00Negative (01/28/19 9:34 AM) [facility] LVCWU7357-69-79 14:34:00Marked *ABN*(01/28/19 9:34 AM) [facility] RIJMOJ6959-12-84 14:34:00Positive *ABN*(01/28/19 9:34 AM) [facility] LDGWJS3756-39-52 14:34:00See Note (01/28/19 9:34 AM)[facility] BDVFGT7140-87-09 14:34:00Positive *ABN*(01/28/19 9:34 AM)[facility] NPKXDA6249-29-97 14:34:00Negative *NA*(01/28/19 9:34 AM)[facility] OXPFYZ8987-44-61 14:34:00Negative *NA*(01/28/19 9:34 AM)[facility] JYAMJP6271-55-84 14:34:00Negative *NA*(01/28/19 9:34 AM)[facility] HANYQZ4292-50-82 14:34:00Negative *NA*(01/28/19 9:34 AM)[facility] MKKDRH2814-05-85 14:34:00Negative *NA*(01/28/19 9:34 AM)[facility] UJXRH1083-19-88 14:34:00<=1.0[facility] ST[facility]OL 2019-01-28 14:34:001[facility] SQJJY7154-66-92 14:34:001[facility] HHMIF2972-40-46 14:34:00Negative *NA*(01/28/19 9:34 AM)[facility] SHFXD5441-32-21 14:34:00Negative (01/28/19 9:34 AM)[facility] HPYVQ9434-09-69 14:34:00Negative (01/28/19 9:34 AM)[facility] AXMNI7333-19-27 14:34:005[facility] 2019-01-28 14:34:00* Test Item Value Reference Range Interpretation Comments UA Spec Grav (test code = UA Spec Grav) 1.012 1 [facility] XXZVR1054-31-18 14:34:00* Test Item Value Reference Range Interpretation Comments UA pH (test code = UA pH) 5.0 1 5.0-8.0 [facility] BFVTY0945-63-53 14:34:00Negative (01/28/19 9:34 AM) [facility] XAHEH6039-81-79 14:34:00Marked *ABN*(01/28/19 9:34 AM) [facility]CARDIAC WPPZFHR4956-01-12 10:19:00<0.02[facility]annCHEM HJKIY1193-68-32 10:19:85830Dwswmcai HermannCHEM MKGUR4005-38-56 10:19:003.0 [facility] XMQJX7888-37-30 10:19:19683Ahfpzqcn HermannCHEM PANEL 2019-01-28 10:19:000.70[facility]annCHE[facility] TRSHO9072-12-04 10:19:0012[facility]annCHE[facility] FWLII7674-42-18 10:19:0094[facility]annCHE[facility] BVYSL9875-64-17 10:19:0010.0[facility]CHE[facility] WIQTI6487-79-06 10:19:008.5[facility]annCHE[facility] XBKLR8183-18-96 10:19:0026[facility]annCHE[facility] VKWYN9882-92-81 10:19:77406 [facility]CHE[facility] IIBJB4701-43-40 10:19:00<0.1[facility]annCHEM PANEL 2019-01-28 10:19:0050[facility]annCHE[facility] JKHIS5377-14-20 10:19:000.4[facility]annCHE[facility] ZEDAD6396-14-60 10:19:0010[facility]annCHE[facility] RSYVT0177-85-00 10:19:0012[facility]annCHE[facility] XQVIQ7679-34-75 10:19:00* Test Item Value Reference Range Interpretation Comments A/G Ratio (test code = A/G Ratio) 0.7 1 0.7-1.6 [facility]CHE[facility] QCUCD2849-38-44 10:19:004.8[facility]annCHEM PANEL 2019-01-28 10:19:003.2[facility]annCHE[facility] JYGXB7040-45-95 10:19:008.0[facility]annCHE[facility] GKUFZ8178-28-34 10:19:002.2[facility]annCHE[facility] YOUAJ3223-98-34 10:19:003.4[facility] XrexvusLGAVLREQMJ8018-98-75 10:19:0012.2[facility] DXDBAAQPHV9684-93-08 10:19:65455.5[facility] YdqossjZUBFGQWQGW9698-15-26 10:19:00 3.40[facility] UfdtsymAZTRNEBUKX8160-36-18 10:19:0034.8[facility]annHEMATOLOGY 2019-01-28 10:19:007.7[facility] SpcmfodICAEJGNFHD6085-92-91 10:19:0015.4[facility] EepzutlFYYVTXOYAA9226-55-79 10:19:007.9[facility] PduinnyLJVFSLYCJA0195-77-75 10:19:0035.0[facility] LgnmevcSZHGILRBCU9915-89-72 10:19:51289Rgyjhhof [facility] RTFTSUQKJO4299-17-34 10:19:00* Test Item Value Reference Range Interpretation Comments MCH (test code = MCH) 35.9 pg 27.0-31.0 [facility] QzrmnfxWJQGXYBFJY9676-46-24 10:19:003.6[facility]annHEMATOLOGY 2019-01-28 10:19:000.5[facility] QhzoojfKTPLLHJMEQ5260-48-42 10:19:000.1[facility] MbxkhfsWYGDVNMAQJ4789-60-32 10:19:003.5[facility] YnvbsyvGAVALTMBAF9653-38-31 10:19:006.5[facility] UqxuqxkHHKZWJXBXZ6875-58-48 10:19:0045.4[facility] RVUXFEXKOM0655-39-57 10:19:0046.1[facility] TqjhzwtSXLLPUEFCM9415-06-34 10:19:00 0.3[facility] PuyvemdDOMSVEPUES2532-49-57 10:19:001.7[facility]annHEMATOLOGY 2019-01-28 10:19:001+ *ABN*(01/28/19 5:19 AM)[facility] AmnwuuyCLNNYP3917-42-90 10:19:00* Test Item Value Reference Range Interpretation Comments CHD Risk (test code = CHD Risk) 3.73 1 3.90-5.80 [facility] EvtcengIUHZWR8566-40-73 10:19:00* Test Item Value Reference Range Interpretation Comments VLDL (test code = VLDL) 16 1 [facility] NqrqqthBTPWTO8807-49-62 10:19:84162Xrwmuzxw BjwileeAFJVKC1532-43-74 10:19:0044[facility] YtuaqtnMJWTAI8270-28-65 10:19:76012Uefwxwed HermannLIPIDS 2019-01-28 10:19:0078[facility]annCARDIAC GVCAGME4594-52-36 10:19:00<0.02 [facility]annCHEM ZROIS0966-02-13 10:19:39761Czhskdjs HermannCHEM PANEL 2019-01-28 10:19:003.0[facility]annCHEM ASKWP4343-61-46 10:19:78844Zojgredn HermannCHEM GAZHR3785-58-61 10:19:000.70[facility]annCHEM QXUUO8682-65-97 10:19:0012[facility]annCHE[facility] PIFVD2617-03-04 10:19:0094[facility]annCHEM SNMBB9943-90-85 10:19:0010.0[facility]annCHEM UQWGD4179-02-16 10:19:008.5 [facility]annCHE[facility] MSBFS4262-17-97 10:19:0026[facility]annCHEM PANEL 2019-01-28 10:19:18080Wsacsxns HermannCHEM JCIUA2722-13-74 10:19:00<0.1[facility]annCHEM XIUOJ2222-42-46 10:19:0050[facility]annCHEM DAGAE4731-13-63 10:19:000.4[facility]annCHEM YZTDM5995-18-45 10:19:0010[facility]annCHE[facility] XQGSX9413-33-28 10:19:0012[facility]annCHE[facility] BQXHN8829-54-38 10:19:00* Test Item Value Reference Range Interpretation Comments A/G Ratio (test code = A/G Ratio) 0.7 1 0.7-1.6 [facility]CHE[facility] OGXRM2271-63-36 10:19:004.8[facility]annCHEM PANEL 2019-01-28 10:19:003.2[facility]annCHE[facility] SZFWM0164-60-53 10:19:008.0[facility]annCHEM WZSPK2500-63-19 10:19:002.2[facility]annCHEM DSICQ4037-41-69 10:19:003.4[facility] KeqklfjKZYQDBAXTG7566-15-46 10:19:0012.2[facility] QFWUHIXDAR8036-47-28 10:19:41360.5[facility] MbysjjcFHVRODWTNV5018-61-82 10:19:00 3.40[facility] KnquwjqMEVTIINTXF0919-04-26 10:19:0034.8[facility]annHEMATOLOGY 2019-01-28 10:19:007.7[facility] XvnkiomCZNSZCTSMS0994-09-50 10:19:0015.4[facility] KaataxeBVRXCBXGPL4294-93-34 10:19:007.9[facility] ZeuskwhPXBLCYDPBR1857-17-02 10:19:0035.0[facility] JeaflstEORJHCEVYL2030-37-29 10:19:21962Jnvsqxfc [facility] ONRNGBGFAB0778-80-11 10:19:00* Test Item Value Reference Range Interpretation Comments MCH (test code = MCH) 35.9 pg 27.0-31.0 [facility] EgaqpmyBREHQPTNGR8808-82-25 10:19:003.6[facility]annHEMATOLOGY 2019-01-28 10:19:000.5[facility] JiusbdpODEQWXPUOM3618-71-92 10:19:000.1[facility] MkjxvwcIFTFQYNQGL9036-07-47 10:19:003.5[facility] JcyqmrnYQOHFOMLKB2914-97-80 10:19:006.5[facility] GqmtozhDGAFXKXLXB7769-10-16 10:19:0045.4[facility] DHHREDTNQC8580-06-50 10:19:0046.1[facility] ViylzbwXKUCQZFHOC5430-25-53 10:19:00 0.3[facility] GlakoncXRUIKDWIWI4579-46-88 10:19:001.7[facility]annHEMATOLOGY 2019-01-28 10:19:001+ *ABN*(01/28/19 5:19 AM)[facility] JhnbzkiICKQGM1928-02-16 10:19:00* Test Item Value Reference Range Interpretation Comments CHD Risk (test code = CHD Risk) 3.73 1 3.90-5.80 [facility] DzkdpfbYHSZAN7556-22-92 10:19:00* Test Item Value Reference Range Interpretation Comments VLDL (test code = VLDL) 16 1 [facility] QrhpmznSPAKEY6171-00-05 10:19:33183Oymlzsiw ArikzdiJMAOWP6574-96-40 10:19:0044[facility] UldskgpOADDQN4026-69-18 10:19:52866Udfsumzc HermannLIPIDS 2019-01-28 10:19:0078[facility]annCARDIAC VXAUPSA3801-09-31 06:02:000.02 [facility]annCARDIAC WBJNQPI2020-99-91 06:02:000.02[facility]annCARDIAC URJYHEO6348-26-73 01:54:62532Npmplrbm HermannCARDIAC VCQNKRS3392-08-46 01:54:00 0.03[facility]annCHEM GYQNA1329-63-34 01:54:96448Swfhslcv HermannCHEM PANEL 2019-01-28 01:54:0014[facility]annCHEM AJVZA6507-53-70 01:54:00418Gvosrfzw HermannCHEM IKCWZ9184-00-76 01:54:96796Rysqezsc [facility]annCHEM CXYRB1349-18-49 01:54:000.80[facility]annCHE[facility] OLFSC9299-46-99 01:54:003.3[facility]annCHEM PGAQX1515-64-06 01:54:42556Xyykxayo HermannCHEM BCAPR0653-00-37 01:54:0029 [facility]annCHE[facility] HUDER5250-82-84 01:54:009.0[facility]annCHEM PANEL 2019-01-28 01:54:008.4[facility]annCHEM ELLWI8393-17-86 01:54:0017[facility]annCHEM XWKLW9104-75-31 01:54:003.3[facility]annCHEM VAMMY1182-75-44 01:54:0019[facility]annCHEM NTDQO4910-85-53 01:54:000.4[facility]annCHEM ZNHFV5599-01-23 01:54:0054[facility]annCHEM DCAPT0512-52-34 01:54:009.3 [facility]annCHE[facility] RBJEW8898-95-57 01:54:005.1[facility]annCHEM PANEL 2019-01-28 01:54:00* Test Item Value Reference Range Interpretation Comments A/G Ratio (test code = A/G Ratio) 0.6 1 0.7-1.6 [facility]annCHE[facility] XHIEL2014-48-45 01:54:00* Test Item Value Reference Range Interpretation Comments B/C Ratio (test code = B/C Ratio) 18 1 6-25 [facility]annCARDIAC SRAZKXE9813-58-31 01:54:64203Gdttckap HermannCARDIAC XLTKHVG5871-71-06 01:54:000.03[facility]annCHEM MXEJE2559-20-75 01:54:27425 [facility]annCHE[facility] DSARI9331-49-79 01:54:0014[facility]annCHEM PANEL 2019-01-28 01:54:64119Paeyeeba HermannCHEM BJGRO4484-85-28 01:54:14042Juldmhpc HermannCHEM HUOLC2279-41-68 01:54:000.80[facility]annCHE[facility] URMNG9964-88-61 01:54:003.3[facility]annCHE[facility] CGJCN5886-88-39 01:54:72202Ncpfylet HermannCHEM NKPTN2711-98-91 01:54:0029[facility]annCHE[facility] TEQUL6916-46-43 01:54:009.0 [facility]annCHE[facility] NUDJO4708-24-86 01:54:008.4[facility]annCHEM PANEL 2019-01-28 01:54:0017[facility]annCHEM EJKWR1589-91-83 01:54:003.3[facility]annCHEM EYYEW9462-33-24 01:54:0019[facility]annCHEM RNDBC9424-21-41 01:54:000.4[facility]annCHEM JYXGP0821-69-74 01:54:0054[facility]annCHEM PZIPN9369-44-94 01:54:009.3[facility]annCHEM BQUMF4549-66-69 01:54:005.1 [facility]annCHEM UNLCK5614-59-69 01:54:00* Test Item Value Reference Range Interpretation Comments A/G Ratio (test code = A/G Ratio) 0.6 1 0.7-1.6 [facility]annCHE[facility] PUWCL0655-31-71 01:54:00* Test Item Value Reference Range Interpretation Comments B/C Ratio (test code = B/C Ratio) 18 1 6- [facility] AjgvrstKDTHKTPJYN4466-94-10 01:20:001.7[facility]annHEMATOLOGY 2019-01-28 01:20:006.4[facility] MhngrsaTQAMSSBGFQ3346-53-29 01:20:000.1[facility] EcxcurxPQJNTRLUDX1407-64-77 01:20:000.4[facility] ImieewoYKXPAIOBOX9952-30-63 01:20:000.1[facility] PuxfjbcWTYWLJNGNY9677-56-78 01:20:005.2[facility] OGINXDISAF2674-06-20 01:20:0019.5[facility] ScfastjRKCOMDUDNW9845-50-45 01:20:00 73.9[facility] PhcehwrAULBXBGLKO1868-89-94 01:20:000.7[facility]annHEMATOLOGY 2019-01-28 01:20:000.7[facility] MotsfoqUAONPHCNJD6197-42-69 01:20:008.0[facility] BzvuvqaYKCATZJCRI1459-35-90 01:20:0033.8[facility] BntxmfqQPDIYEURRH7383-23-79 01:20:46871.4[facility] MikwpaeRJRWVDEDZW8030-28-95 01:20:00* Test Item Value Reference Range Interpretation Comments MCH (test code = MCH) 34.6 pg 27.0-31.0 [facility] VbvesafCTDLUHVTQQ4296-51-02 01:20:30091Iczbzsxc HermannHEMATOLOGY 2019-01-28 01:20:0015.1[facility] RckwwfqXQPXTFFZIZ3553-43-87 01:20:0012.8[facility] YnfoaydPYYAPCEVTG0884-12-33 01:20:008.7[facility] HjivlmvCXCFHNVADQ5243-64-82 01:20:0037.8[facility] KokzzktZCEICCPELC7635-46-04 01:20:003.69[facility] ZVBFXQUICE9379-98-06 01:20:00<3[facility] VuljewhYMQSIUBFIT8645-33-85 01:20:00< 0.003[facility] GiimxxwHLHDQMNJLA5197-89-36 01:20:007.0[facility] HermannTOXICOLOGY 2019-01-28 01:20:00<2 (01/27/19 8:20 PM)[facility] IxbwhoaGCMBPDSIDZ9623-92-59 01:20:001.7[facility] FmbduezXWNRAIKYVA4632-51-40 01:20:006.4[facility] BGWFULSKUZ6273-54-66 01:20:000.1[facility] TzonfeiKUYYAXPYLH0470-03-38 01:20:000.4 [facility] EuqgtjoDEFVLDSBRD8751-53-49 01:20:000.1[facility]annHEMATOLOGY 2019-01-28 01:20:005.2[facility] BkdfzldBOJNHYFUHA9269-74-93 01:20:0019.5[facility] XslepctNPNPJMQVKY0234-78-42 01:20:0073.9[facility] EhjbnfhGTDVIKDLWA3635-30-70 01:20:000.7[facility] WkoubyuIANYWWTFES8850-82-70 01:20:000.7[facility] TPIRCFWMOT3725-64-58 01:20:008.0[facility] TycqyuxMHTLALYWZB6762-99-33 01:20:00 33.8[facility] JemnxgiKUZXVAPGEM9173-25-87 01:20:25242.4[facility]annHEMATOLOGY 2019-01-28 01:20:00* Test Item Value Reference Range Interpretation Comments MCH (test code = MCH) 34.6 pg 27.0-31.0 [facility] GaqruiuEJCIYCSJAB0303-07-41 01:20:21943Dwpsoxwx HermannHEMATOLOGY 2019-01-28 01:20:0015.1[facility] MhzzvviPTFCQIYPSF3648-18-85 01:20:0012.8[facility] SqvyzjqQOHMVZCIYG4491-22-95 01:20:008.7[facility] MirwrwbBLHKZJIAUX7037-30-33 01:20:0037.8[facility] PrvcmzhJOCWFYZUOZ1556-46-06 01:20:003.69[facility] KOPMVNTBHW5688-14-02 01:20:00<3[facility] StguttwQFPOJNYDAY6814-50-50 01:20:00< 0.003[facility] VtsriwbJEEPAHBARR0310-55-38 01:20:007.0[facility] HermannTOXICOLOGY 2019-01-28 01:20:00<2 (01/27/19 8:20 PM)Inocente Dexter TROPONIN J8658-97-79 03:27:00* Test Item Value Reference Range Interpretation Comments RAPID TROPONIN I (BEAKER) (test code = 1483) < ng/mL <0.05 HEPATIC FUNCTION HUTIR0753-86-48 02:30:00* Test Item Value Reference Range Interpretation Comments TOTAL PROTEIN (BEAKER) (test code = 770) 7.2 gm/dL 6.0-8.5 ALBUMIN (BEAKER) (test code = 1145) 3.6 g/dL 3.5-5.0 BILIRUBIN TOTAL (BEAKER) (test code = 377) < mg/dL 0.1-1.2 L BILIRUBIN DIRECT (BEAKER) (test code = 706) 0.0 mg/dL 0.0-0.4 ALKALINE PHOSPHATASE (BEAKER) (test code = 346) 49 U/L 30-115 AST (SGOT) (BEAKER) (test code = 353) 16 U/L 5-40 ALT (SGPT) (BEAKER) (test code = 347) 12 U/L 5-50 J-MSHUO5449-76KALVQ1853-38-67 02:26:00* Test Item Value Reference Range Interpretation Comments D-DIMER QUANTITATIVE (BEAKER) (test code = 671) 0.98 MG/L FEU <0.50 H REGARDING D-DIMER RESULTS: Results of this D-Dimer test should always be interpr eted in conjunction with the patient's medical history, clinical presentation an d other findings. DVT clinical diagnosis should not be based on the results of I NNOVANCE D-Dimer alone.KMIFUPWKI0673-74-43 02:22:00* Test Item Value Reference Range Interpretation Comments MAGNESIUM (BEAKER) (test code = 627) 1.8 mg/dL 1.5-3.0 PLVWTU4756-25-98 02:22:00* Test Item Value Reference Range Interpretation Comments LIPASE (BEAKER) (test code = 749) 99 U/L 40-240 RAD, CHEST, 1 VIEW, NON [id number] 01:25:00Reason for exam:->CHEST PAINShould this be performed at the bedside?->YesFINAL REPORT History: Chest pain. Comparison: 10/26/2016 Findings: 2 frontal views of the chest are submitted. The patient is rotated slightly to the right on both images. The cardiomediastinal contours are unremarkable. There is no focal consolidation, pneumothorax, large pleural effusion or evidence of overt pulmonary edema. There is no acute bony abnormality. Impression: No acute abnormality. Signed: Cheyenne Aranda MDReport Verified Date/Time: 12/31/2018 01:25:58 Reading Location: [address] Reading Room Elec tronically signed by: CHEYENNE ARANDA M.D. on 12/31/2018 01:25 AM RAPID TROPONIN [id number] 00:31:00* Test Item Value Reference Range Interpretation Comments RAPID TROPONIN I (BEAKER) (test code = 1483) < ng/mL <0.05 B-TYPE NATRIURETIC FACTOR (BNP)2018-12-31 00:31:00* Test Item Value Reference Range Interpretation Comments B-TYPE NATRIURETIC PEPTIDE (BEAKER) (test code = 700) 14 pg/mL 0-100 PT/[id number] 00:27:00* Test Item Value Reference Range Interpretation Comments PROTIME (BEAKER) (test code = 759) 10.6 seconds 9.8-12.0 INR (BEAKER) (test code = 370) 1.0 <=5.9 PARTIAL THROMBOPLASTIN TIME (BEAKER) (test code = 760) 26.5 seconds 25.8-34.5 RECOMMENDED COUMADIN/WARFARIN INR THERAPY RANGESSTANDARD DOSE: 2.0 - 3.0 Inclu zahra: PROPHYLAXIS for venous thrombosis, systemic embolization; TREATMENT for jesus ous thrombosis and/or pulmonary embolus.HIGH RISK: Target INR is 2.5-3.5 for pat ients with mechanical heart valves.BASIC METABOLIC [id number] 00:23:00* Test Item Value Reference Range Interpretation Comments SODIUM (BEAKER) (test code = 381) 143 meq/L 135-148 POTASSIUM (BEAKER) (test code = 379) 3.9 meq/L 3.6-5.5 CHLORIDE (BEAKER) (test code = 382) 111 meq/L 98-106 H CO2 (BEAKER) (test code = 355) 24 meq/L 24-32 BLOOD UREA NITROGEN (BEAKER) (test code = 354) 14 mg/dL 10-26 CREATININE (BEAKER) (test code = 358) 0.67 mg/dL 0.50-1.20 GLUCOSE RANDOM (BEAKER) (test code = 652) 119 mg/dL 70-110 H CALCIUM (BEAKER) (test code = 697) 8.8 mg/dL 8.5-10.5 EGFR (BEAKER) (test code = 1092) 113 mL/min/1.73 sq m ESTIMATED GFR IS NOT ACCURATE CREATININE CLEARANCE IN PREDICTING GLOMERULAR FILTRATION RATE. ESTIMATED GFR IS NOT APPLICABLE FOR DIALYSIS PATIENTS. CBC W/PLT COUNT & AUTO BARPDTLPQIDX5981-72-38 00:18:00* Test Item Value Reference Range Interpretation Comments WHITE BLOOD CELL COUNT (BEAKER) (test code = 775) 6.8 K/ L 4.0- 10.0 RED BLOOD CELL COUNT (BEAKER) (test code = 761) 3.51 M/ L 4.00-5 .00 L HEMOGLOBIN (BEAKER) (test code = 410) 12.2 GM/DL 12.0-15.0 HEMATOCRIT (BEAKER) (test code = 411) 36.7 % 36.0-45.0 MEAN CORPUSCULAR VOLUME (BEAKER) (test code = 753) 104.5 fL 82. 0-99.0 H MEAN CORPUSCULAR HEMOGLOBIN (BEAKER) (test code = 751) 34.8 pg 27.0-33.0 H MEAN CORPUSCULAR HEMOGLOBIN CONC (BEAKER) (test code = 752) 33.3 GM/DL 32.0-36.0 RED CELL DISTRIBUTION WIDTH (BEAKER) (test code = 412) 14.2 % 10.3-14.2 PLATELET COUNT (BEAKER) (test code = 756) 260 K/CU MM 150-430 MEAN PLATELET VOLUME (BEAKER) (test code = 754) 7.4 fL 6.5-10 .5 NEUTROPHILS RELATIVE PERCENT (BEAKER) (test code = 429) 38 % LYMPHOCYTES RELATIVE PERCENT (BEAKER) (test code = 430) 50 % MONOCYTES RELATIVE PERCENT (BEAKER) (test code = 431) 7 % EOSINOPHILS RELATIVE PERCENT (BEAKER) (test code = 432) 4 % BASOPHILS RELATIVE PERCENT (BEAKER) (test code = 437) 1 % NEUTROPHILS ABSOLUTE COUNT (BEAKER) (test code = 670) 2.57 K/ L 1.80-8.00 LYMPHOCYTES ABSOLUTE COUNT (BEAKER) (test code = 414) 3.38 K/ L 1.48-4.50 MONOCYTES ABSOLUTE COUNT (BEAKER) (test code = 415) 0.49 K/ L 0. 00-1.30 EOSINOPHILS ABSOLUTE COUNT (BEAKER) (test code = 416) 0.28 K/ L 0.00-0.50 BASOPHILS ABSOLUTE COUNT (BEAKER) (test code = 417) 0.04 K/ L 0. 00-0.20 CARDIAC FEGMHOE7369-66-38 19:01:00<0.02[facility]annCARDIAC UILLKBM7709-10-57 19:01:0039[facility]annCARDIAC RKPFYSW7848-96-56 19:01:00<0.02[facility]annCARDIAC EVCMWXR3404-17-52 19:01:0039[facility]annC[facility]AC ENZYMES 2017-03-26 12:33:00<0.02[facility]annCARDIAC LYCSNYV0984-10-09 12:33:0046 [facility]AC GDFGAZW2169-39-53 12:33:00<0.02[facility]annCARDIAC DJHTEUJ8154-41-38 12:33:0046[facility]annCARDIAC PNAFSLJ1960-69-47 06:41:56< 1.0[facility]annCARDIAC UNCUHUX4603-40-59 06:41:56<0.02[facility] CARDIAC JZOSGWV7691-84-19 06:41:569[facility]annCARDIAC OSKKLMJ2197-51-15 06:41:5654[facility]annCARDIAC GICVFMR7958-55-85 06:41:56<1.9[facility] FCCZLEJGPUHN5691-72-58 06:41:92847Txnkftod AculpdvLGUKSGUWQJDR2002-27-41 06:41:561.20[facility] QmtjjwjRNALUFAOTGON9522-28-17 06:41:5616[facility] WXNZDTNNJDEV6827-36-45 06:41:12735Xkxuyhnx VnmkjkdYHJXGUKSMAHC6286-63-03 06:41:5624[facility] RerlvolKTHCTAWBLOVR6415-77-14 06:41:77575Hhsqwsxe [facility] PZZHYPIULDNJ3861-86-63 06:41:563.3[facility] ZdsbawuWMJHZOGKPBVP1869-21-87 06:41:5644[facility] PjmsxgrNRLSXQVWPJDU4487-20-04 06:41:5613[facility] RAHJQWVEOQTL2957-80-10 06:41:5612[facility] YxqudleXZNPIUCGADNO2133-79-59 06:41:56 3.9[facility] AcvjhogHFAXNURDSETH6789-95-65 06:41:568.5[facility] CRAAYTTILDXX9061-71-81 06:41:569.0[facility] PmdpveiXRXJMZCKYACF8413-52-90 06:41:560.3[facility] RxawlxcDAFRXFPWPUMW3756-93-64 06:41:5611.3[facility] TTRPHIGDKFMO5357-23-96 06:41:5613[facility] IdezrxeCUBPFGEDESYO9786-01-92 06:41:56 4.6[facility] ZewmdfnHJWQYZKXOBND5268-47-06 06:41:560.8[facility] YJUYBADGEAMO4489-32-15 06:41:5662[facility] PctewsjJCLMYFCLDZ6759-51-85 06:41:56 8.7[facility] GfalbylQAOICKBIZD5494-74-57 06:41:563.78[facility]annHEMATOLOGY 2017-03-26 06:41:5614.1[facility] GitbmetOFKFLNLFLJ6784-20-56 06:41:5639.7[facility] BrmeewpTBYFZYKRGA4621-05-53 06:41:5635.5[facility] CbluxnkBENGDKFQIP0473-53-72 06:41:56* Test Item Value Reference Range Interpretation Comments MCH (test code = MCH) 37.2 pg 27.0-31.0 [facility] NfhmkbfGQIYFOGDVC9683-83-81 06:41:98805.9[facility]annHEMATOLOGY 2017-03-26 06:41:5614.4[facility] QotueuiSJFMWZBJJL9941-93-26 06:41:63586Lrrglqcc BxhpzpaOPXYRSHJES4188-97-67 06:41:568.7[facility] IlfuhgcHVQEHJOOCR5550-27-55 06:41:5653.4[facility] NsbbduoQSZDMTRCRM8327-49-44 06:41:560.7[facility] ERIEQNGZTP6424-76-52 06:41:567.7[facility] NqpufwaPFNFFMHDAG7849-65-78 06:41:564.7 [facility] DhuiyvgMJQFGFISZK7103-23-56 06:41:562.9[facility]annHEMATOLOGY 2017-03-26 06:41:563.1[facility] TclafekUJMNYZBDWL0702-88-73 06:41:560.3[facility] EqhmmszJXXYZTLZDX3263-43-44 06:41:562+ *ABN*(03/26/17 1:41 AM)[facility] OMIOMXEPBS7861-79-40 06:41:560.3[facility] YjfaoyhDUFBWWEBGH5185-86-19 06:41:56 35.7[facility]annCARDIAC PSXUJCY4048-96-86 06:41:56<1.0[facility] CARDIAC AHKNGQC4081-44-87 06:41:56<0.02[facility]annC[facility]AC SAIVCEV4318-68-72 06:41:569[facility]annC[facility]AC DAJGTHW5258-06-89 06:41:5654[facility] CARDIAC IRXGLHU0032-74-50 06:41:56<1.9[facility] FuealjbUDAYMIWNHOHB8540-84-25 06:41:52795Npuuavpy MuoghwwBOOAQXAJFPXB0864-09-86 06:41:561.20[facility] NQKTWFLQDIVU6459-76-38 06:41:5616[facility] XhxkjslJAFEZROJPVYP5428-60-68 06:41:56 103[facility] YnxnoghRMJQMIOGJAWX2811-55-05 06:41:5624[facility] HermannELECTROLYTES 2017-03-26 06:41:60053Vobyukyu OxhfmqlBLTYCOASPCGF1292-92-23 06:41:563.3[facility] VezilrrTRLZXKRMQYAZ4611-98-03 06:41:5644[facility] FuuggibDLVHLDMDCTMZ1989-19-99 06:41:5613[facility] HwisvhfGBKNEDSTXWHG0951-80-78 06:41:5612[facility] RFKWRJHEYRAK0020-43-47 06:41:563.9[facility] RsrtutzGCWOMHSRKXIU0961-36-81 06:41:568.5[facility] GcenswyPGCVMLCUWFEZ7263-03-14 06:41:569.0[facility] LGXYMKNWTAKH0138-44-21 06:41:560.3[facility] YrlxdbbLKCRXPUMDZZY4166-30-15 06:41:5611.3[facility] KulupsqEFRTXYMKCIBK5992-81-89 06:41:5613[facility] WDBQAXWFYKOS6665-21-12 06:41:564.6[facility] IcydbytGMIAROMQWWIN8312-30-66 06:41:560.8[facility] YdkskcbTWGNRNQLANMG5819-06-77 06:41:5662[facility] QOUGIVOHUB3845-21-18 06:41:568.7[facility] ZigflhhLNLZYAWRXT9280-57-39 06:41:56 3.78[facility] KopjuskELQYIJHGKI7431-24-25 06:41:5614.1[facility]annHEMATOLOGY 2017-03-26 06:41:5639.7[facility] QawythmRGULOGYOAN6973-09-45 06:41:5635.5[facility] AclqxrfLOILIIZTDT6831-29-12 06:41:56* Test Item Value Reference Range Interpretation Comments MCH (test code = MCH) 37.2 pg 27.0-31.0 [facility] DwmzysvYTUWKRNVFI4473-05-63 06:41:87746.9[facility]annHEMATOLOGY 2017-03-26 06:41:5614.4[facility] BqxyfziSCSCERWRDK9000-71-46 06:41:24023Ctlggouj JryzjznTVJJCZIBCS2769-43-28 06:41:568.7[facility] IxyhzluGZFDEIOTJO0271-64-39 06:41:5653.4[facility] SmfmykgVVKTWTQDMK2604-70-11 06:41:560.7[facility] EXYRHUOYKO4955-00-67 06:41:567.7[facility] EqurgmuLAWJNJHNLA3386-25-48 06:41:564.7 [facility] AzfiattJGJIFXALVY6944-76-11 06:41:562.9[facility]annHEMATOLOGY 2017-03-26 06:41:563.1[facility] XulzrmjPJMNXOUHGX1820-11-71 06:41:560.3[facility] OfvyuspRGCICLXNAC4818-21-08 06:41:562+ *ABN*(03/26/17 1:41 AM)[facility] SLJNFJVBPQ0655-02-61 06:41:560.3[facility] BqbmzndMIEHWWHGGO4686-21-56 06:41:56 35.7[facility] HermannD-Dimer, Bcxgwxmflfje0661-82-19 23:58:00* Test Item Value Reference Range Interpretation Comments D-Dimer, Quant (test code = DDQNT) 478 ng/mL 0-500 N Please note Change in unit of measure from mg/L FEU to ng/mLA cutoff of less than 500 ng/mL DD has a negative predictive value of100% for DVT cjl020% for PE.When using D-Dimer to help rule out DVT or PE, clinical information anddisease probability should be considered.Elevated D-Dimer values are not specific for thromboembolism. Prothrombin Jsny9180-35-69 23:50:00* Test Item Value Reference Range Interpretation Comments PT (test code = PT) 12.30 seconds 9.78-13.35 N INR (test code = INR) 1.09 Ratio 0.6-1.2 N Partial Thromboplastin Mfhh1447-61-08 23:50:00* Test Item Value Reference Range Interpretation Comments aPTT (test code = PTT) 31.90 seconds 24.39-37.25 N Troponin Z7670-13-87 23:47:00* Test Item Value Reference Range Interpretation Comments Troponin T (test code = DOUGLAS) <0.010 ng/mL 0.000-0.090 N CK Rohfy0506-76-76 23:47:00* Test Item Value Reference Range Interpretation Comments CK (test code = CK) 55 U/L 26-192 N CK [id number] 23:47:00* Test Item Value Reference Range Interpretation Comments CK (test code = CK) 55 U/L 26-192 N CKMB (test code = CKMB) <1.0 ng/mL 0.0-2.8 N CKMB% (test code = CKMBP) No Calc % 0.0-3.4 N Un able to calculate due to one or more values out of test measurement range. Comprehensive Metabolic Ewdid1802-63-15 23:45:00* Test Item Value Reference Range Interpretation Comments Sodium (test code = NA) 143 mmol/L 135-145 N Potassium (test code = K) 3.2 mmol/L 3.5-5.1 L Chloride (test code = CL) 106 mmol/L 98-105 H Carbon Dioxide (test code = CO2) 28 mmol/L 22-29 N Glucose (test code = GLU) 87 mg/dL 70-115 N Blood Urea Nitrogen (test code = BUN) 13 mg/dL 6-20 N Creatinine (test code = CREAT) 0.7 mg/dL 0.5-0.9 N Calcium (test code = CA) 8.8 mg/dL 8.3-10.5 N Prot Total (test code = TP) 7.4 g/dL 6.4-8.3 N Albumin (test code = ALB) 4.2 g/dL 3.5-5.2 N A/G Ratio (test code = AGRATIO) 1.3 Ratio Globulin (test code = GLOB) 3.2 2.9-3.1 H Bili Total (test code = TBIL) <0.1 mg/dL 0.1-0.9 L Alk Phos (test code = APHOS) 42 U/L 35-104 N AST (test code = AST) 11 U/L 1-32 N ALT (test code = ALT) <5 U/L 1-33 N BUN/Creatinine Ratio (test code = BCRATIO) 18.6 Anion Gap (test code = AGAP) 9 mmol/L 7-16 N Estimated GFR (test code = GFR) >60 mL/min/1.73m2 eGFR (estimated Glomerular Filtration Rate) is an estimated value,calculated from the patient's serum creatinine using the MDRD equation.It is NOT the patient's actual GFR. The eGFR provides a more clinicallyuseful measure of kidney disease than serum creatinine alone.This calculation takes sex and race into account, if the informationis provided. If the race is not provided, and the patient isAfrican-Malawian, multiply by 1.212. If sex is not provided, and thepatient is female, multiply by 0.742. Results for patients <18 years ofage have not been validated by the MDRD study and should be interpretedwith caution.eGFR Result Interpretation:eGFR > or = 60 is in the Normal RangeeGFR < 60 may mean kidney diseaseeGFR < 15 may mean kidney failureRanges recommended by the National Kidney Found ation,http://nkdep.nih.gov CBC with Cchoygoiygrb9165-96-83 23:42:00* Test Item Value Reference Range Interpretation Comments WBC (test code = WBC) 6.9 K/cumm 4.4-10.5 N RBC (test code = RBC) 3.38 M/cumm 3.75-5.20 L Hemoglobin (test code = HGB) 12.2 gm/dL 12.2-14.8 N Hematocrit (test code = HCT) 35.2 % 36.5-44.4 L MCV (test code = MCV) 104.1 fL 80-100 H MCH (test code = MCH) 36.1 pg 27.0-32.5 H MCHC (test code = MCHC) 34.7 g/dL 32.0-37.5 N RDW (test code = RDW) 13.1 % 11.5-14.5 N Platelet Count (test code = PLTCT) 179 K/cumm 140-440 N MPV (test code = MPV) 7.8 fL Diff Method (test code = DIFFM) Auto Neutrophil (test code = NEUT) 49.7 % 36-70 N Lymphocyte (test code = LYMPH) 44.7 % 12-44 H Monocyte (test code = MONO) 3.5 % 0-11 N Eosinophil (test code = EOS) 2.0 % 0-7 N Basophil (test code = BASO) 0.2 % 0-2 N Neutro Abs (test code = ANEUT) 3.4 K/cumm 1.6-7.4 N Lymph Abs (test code = ALYMPH) 3.1 K/cumm 0.5-4.6 N [place] Abs (test code = AMONO) 0.2 K/cumm 0.0-1.2 N Eos Abs (test code = AEOS) 0.13 K/cumm 0.00-0.74 N Baso Abs (test code = ABASO) 0.0 K/cumm 0.00-0.21 N Macrocytosis (test code = MACRO) Slight XR CHEST 1 [id number] 23:19:09AFTER HOURS SERVICE ON: 02/20/2017 11:19 PMAP Portable ChestLocation Code [id number]: Chest painFINDINGS: There are no infiltrates. There are no pleural effusions. There is nopneumothorax. Cardiac silhouette and mediastinum appear within normallimits. IMPRESSION: No active intrathoracic findings. DRUG FLFDPG5079-29-60 11:13:00Negative *NA*(11/26/16 6:13 AM)[facility] CWVZFR3117-89-90 11:13:00Positive *ABN*(11/26/16 6:13 AM) [facility] IZJJBS2688-14-99 11:13:00Positive *ABN*(11/26/16 6:13 AM) [facility] GGVDIF9093-92-20 11:13:00Negative *NA*(11/26/16 6:13 AM) [facility] USZJNH3451-05-83 11:13:00See Note (11/26/16 6:13 AM)[facility] XEZSQT9717-31-84 11:13:00Negative *NA*(11/26/16 6:13 AM)[facility] YAXLFU8316-12-61 11:13:00Negative *NA*(11/26/16 6:13 AM)[facility] YGHOEL8755-01-94 11:13:00Negative *NA*(11/26/16 6:13 AM)[facility] UISRSP7919-16-60 11:13:00Negative *NA*(11/26/16 6:13 AM)[facility] IVQDPT6323-20-71 11:13:00Positive *ABN*(11/26/16 6:13 AM)[facility] EHXYLL2697-45-70 11:13:00Positive *ABN*(11/26/16 6:13 AM)[facility] ZSMUNO4906-76-31 11:13:00Negative *NA*(11/26/16 6:13 AM)[facility] ZMATQC8353-65-67 11:13:00See Note (11/26/16 6:13 AM)[facility] UOOMRY1846-71-62 11:13:00Negative *NA*(11/26/16 6:13 AM)[facility] IAYNTR4215-61-29 11:13:00Negative *NA*(11/26/16 6:13 AM)[facility] KZEXSI8029-77-22 11:13:00Negative *NA*(11/26/16 6:13 AM)[facility] AGKRTEN1407-55-11 08:19:0034[facility] MLCVLZP8945-58-89 08:19:00< 0.02[facility] CcfclvqQASKDD8827-20-80 08:19:0052[facility] PphlpouWCPUZH1701-47-78 08:19:88177Rqqclhmb BzshuqfWOLKHN4641-25-78 08:19:003.35[facility]annLIPIDS 2016-11-26 08:19:0098[facility] AwuybzgDATYAN8049-37-83 08:19:0046[facility] GBSAGL4018-15-77 08:19:0010[facility] DTGIPUW4706-80-92 08:19:0034 [facility] WQKUMRM3049-60-84 08:19:00<0.02[facility]annLIPIDS 2016-11-26 08:19:0052[facility] UrhdeiySKRCSF5598-33-39 08:19:59717[place]una OuuupphUNIDBM2173-72-43 08:19:003.35[facility] OdhqjbiGNIEAO9340-62-24 08:19:0098 [facility] GhwfcrrKYVVLJ1937-86-05 08:19:0046[facility] VzseiwyCNAOQK6612-72-42 08:19:0010[facility] NGXBTWZ0884-55-48 22:22:0041[facility] CARDIAC FUCUGWY4387-34-56 22:22:00<0.02[facility] XvxzcrlKFHVIOUXKT8183-87-45 22:22:00<0.27[facility] MHZLZBH2564-23-60 22:22:0041[facility] RECJZCF5231-04-28 22:22:00<0.02[facility]annHEMATOLOGY 2016-11-25 22:22:00<0.27[facility] NFZUYXA4101-45-93 15:08:0046 [facility] GXNOAAM1411-23-89 15:08:00<0.02[facility] OQEMDTY2443-78-99 15:08:0046[facility] ZHYSFSP8981-61-11 15:08:00< 0.02[facility]annCHEM SLXGI1087-67-92 11:27:0090[facility]annCHEM PANEL 2016-11-25 11:27:90858Kvhdkdje HermannCHEM VWUUV6880-19-91 11:27:004.3[facility]annCHE[facility] WTZAC6205-24-62 11:27:0015[facility]annCHE[facility] ZDPTJ4396-20-94 11:27:000.79[facility]annCHE[facility] GLHUH7105-49-49 11:27:0078[facility]annCHE[facility] XIBDI7296-66-20 11:27:000.5[facility]annCHE[facility] EKKGL5215-91-47 11:27:0013 [facility] RGQQN8570-59-62 11:27:0012[facility]annCHE[facility] PANEL 2016-11-25 11:27:0031[facility]annCHE[facility] LAHSF4825-52-75 11:27:003.5[facility]annCHE[facility] WDQLV3541-06-52 11:27:008.5[facility]annCHE[facility] VFHOR7453-95-02 11:27:007.2[facility]annCHE[facility] CABHN4697-34-94 11:27:99647Jqirwphj HermannCHEM FJHPR4537-62-99 11:27:0027[facility]annCHE[facility] RONTU8017-64-20 11:27:003.7 [facility]CHE[facility] AZGFF8338-45-00 11:27:000.9[facility]annCHEM PANEL 2016-11-25 11:27:0019[facility]annCHE[facility] NWYIA4972-91-61 11:27:0010.3[facility] FsrlaqpHEEXAYRGMV2309-33-31 11:27:000.1[facility] QjtazucGAKKWIZOHA0753-22-49 11:27:000.5[facility] AqcpcokUIGXFMFCXU5790-08-00 11:27:002+ *ABN*(11/25/16 6:27 AM) [facility] VvxhnvmLBILPGUTZA8873-46-63 11:27:001.8[facility]annHEMATOLOGY 2016-11-25 11:27:008.9[facility] EeokxejKIKIAYMGNS6297-63-54 11:27:0039.6[facility] RdvfloeFSXOBCQQXU0951-98-58 11:27:002.7[facility] GncieqbTHSLEMHITM5137-25-22 11:27:000.3[facility] CjenoqqGDMZGMHKXU9052-99-08 11:27:002.2[facility] DRWZGSLOBG9105-52-24 11:27:0049.4[facility] PzlbeubICBNVZJRFH2662-60-23 11:27:00 192[facility] IkbfrwwSPLRKUDHVD7264-04-27 11:27:008.6[facility]annHEMATOLOGY 2016-11-25 11:27:0031.0[facility] RzapvwxLFMQRJWVYZ3379-82-41 11:27:0011.2[facility] TbabhrjOZYCBLTJPN7013-98-37 11:27:56624.3[facility] VdeqpmxYYCIBFVSWI8866-01-80 11:27:0012.9[facility] QvplfpmADSUMLRKKP0919-99-24 11:27:0036.0[facility] UUGGVQCVXS9562-01-96 11:27:00* Test Item Value Reference Range Interpretation Comments MCH (test code = MCH) 37.9 pg 27.0-31.0 [facility] CopyngsYJSYAUIHXB1813-38-46 11:27:002.94[facility]annHEMATOLOGY 2016-11-25 11:27:005.4[facility]annCHEM OJEAY6246-50-34 11:27:0090[facility]annCHEM LUSTG5178-53-71 11:27:71941Gxilmrav HermannCHEM CVDQZ7991-61-92 11:27:004.3[facility]annCHEM YZYRK9326-19-57 11:27:0015[facility]annCHE[facility] YLALS2708-90-05 11:27:000.79[facility]annCHE[facility] GXOUA1893-58-51 11:27:0078 [facility]annCHE[facility] XONWS3424-36-26 11:27:000.5[facility]annCHEM PANEL 2016-11-25 11:27:0013[facility]annCHE[facility] HBBXK4119-23-86 11:27:0012[facility]annCHEM OVXCQ2339-04-72 11:27:0031[facility]annCHE[facility] AKGVE9032-84-10 11:27:003.5[facility]annCHE[facility] PSFWI7171-35-98 11:27:008.5[facility]annCHEM DFXGZ8606-92-90 11:27:007.2[facility]annCHE[facility] KKMYJ2490-57-10 11:27:80326 [facility]CHE[facility] ENQFP4434-12-52 11:27:0027[facility]annCHEM PANEL 2016-11-25 11:27:003.7[facility]annCHEM VBQGR5648-61-51 11:27:000.9[facility]annCHE[facility] EPRWJ5650-40-23 11:27:0019[facility]annCHE[facility] XYBBE5546-37-06 11:27:0010.3[facility] KnbasohKFAPIFEPQW4296-47-76 11:27:000.1[facility] DYBMNDFOUC0731-94-58 11:27:000.5[facility] QypqzedVOMVGLKYJZ2857-54-18 11:27:002+ *ABN*(11/25/16 6:27 AM)[facility] PvrjhiiKXHMVEELEM9728-34-79 11:27:001.8[facility] YymfeczSQDKYZSNTE3002-54-90 11:27:008.9[facility] TspykiwTVXGNBIWJP7589-59-75 11:27:0039.6[facility] EskrgosMTZOAGZITP1130-82-53 11:27:002.7[facility] XAPWYDURFU4071-24-03 11:27:000.3[facility] EwwfhktMPWXIJICHN1914-49-31 11:27:002.2 [facility] OquarkcMQHNMKYFGN2099-20-91 11:27:0049.4[facility]annHEMATOLOGY 2016-11-25 11:27:42304Scobqsgu PyukgdmFPGKXZIOYC9292-88-54 11:27:008.6[facility] OpwazxvSMWBZHNSPT4301-02-84 11:27:0031.0[facility] GsudixjHWFUFVEFQM7342-43-89 11:27:0011.2[facility] SuddvqfQUOWIGQWIB6976-66-82 11:27:17549.3[facility] UXBSYMGAKX7183-88-40 11:27:0012.9[facility] KrqwwqtNXEJIFTZOT6823-90-14 11:27:00 36.0[facility] DgonvdjRGTZVKERFR0337-99-20 11:27:00* Test Item Value Reference Range Interpretation Comments MCH (test code = MCH) 37.9 pg 27.0-31.0 [facility] MwkrqnkXDWPPLGEJY1653-53-35 11:27:002.94[facility]annHEMATOLOGY 2016-11-25 11:27:005.4[facility] HermannTROPONIN E9563-82-34 22:41:00* Test Item Value Reference Range Interpretation Comments TROPONIN I (BEAKER) (test code = 397) < ng/mL 0.00-0.03 Effective 05/12/2014: Reference Range ChangeNew: 0.00-0.03 Previous 0.00-0.15T roponin I (TnI) levels must be interpreted in the context of the presenting symp toms and the clinical findings. Elevated TnI levels indicate myocardial damage, but are not specific for ischemic heart disease. Elevated TnI levels are seen in patients with other cardiac conditions (including myocarditis and congestive he art failure), and slight TnI elevations occur in patients with other conditions, including sepsis, renal failure, acidosis, acute neurological disease, and pers istent tachyarrhythmia.CREATINE KINASE (CK), TOTAL AND [id number] 20:13:00* Test Item Value Reference Range Interpretation Comments CREATINE KINASE TOTAL (ARUN) (test code = 380) 35 U/L 29-20 0 CREATINE KINASE-MB (WILLIAMAKER) (test code = 750) 0.3 ng/mL 0.0-6.6 CREATINE KINASE-MB INDEX (WILLIAMAKER) (test code = 395) 0.9 % Effective 05/12/2014: CK-MB Reference Range ChangeNew: 0.0-6.6 Previous: 0.0- 4.9CK-MB Reference Range:<6.7 Normal6.7-10.0 Borderline>10.0 Abnormal TROPONIN P6870-40-77 20:13:00* Test Item Value Reference Range Interpretation Comments TROPONIN I (WILLIAMAKER) (test code = 397) < ng/mL 0.00-0.03 Effective 05/12/2014: Reference Range ChangeNew: 0.00-0.03 Previous 0.00-0.15T roponin I (TnI) levels must be interpreted in the context of the presenting symp toms and the clinical findings. Elevated TnI levels indicate myocardial damage, but are not specific for ischemic heart disease. Elevated TnI levels are seen in patients with other cardiac conditions (including myocarditis and congestive he art failure), and slight TnI elevations occur in patients with other conditions, including sepsis, renal failure, acidosis, acute neurological disease, and pers istent tachyarrhythmia.B-TYPE NATRIURETIC FACTOR (BNP)2016-10-26 20:12:00* Test Item Value Reference Range Interpretation Comments B-TYPE NATRIURETIC PEPTIDE (WILLIAMAKER) (test code = 700) < pg/mL 0-100 ZWFZQCGSO7670-76-62 20:06:00* Test Item Value Reference Range Interpretation Comments MAGNESIUM (ARUN) (test code = 627) 1.9 mg/dL 1.6-2.6 BASIC METABOLIC OGJIY0609-55-80 20:06:00* Test Item Value Reference Range Interpretation Comments SODIUM (BEAKER) (test code = 381) 139 meq/L 136-145 POTASSIUM (BEAKER) (test code = 379) 3.7 meq/L 3.5-5.1 CHLORIDE (BEAKER) (test code = 382) 107 meq/L 98-107 CO2 (BEAKER) (test code = 355) 25 meq/L 22-29 BLOOD UREA NITROGEN (BEAKER) (test code = 354) 11 mg/dL 7-21 CREATININE (BEAKER) (test code = 358) 0.83 mg/dL 0.57-1.25 GLUCOSE RANDOM (BEAKER) (test code = 652) 81 mg/dL 70-105 CALCIUM (BEAKER) (test code = 697) 9.0 mg/dL 8.4-10.2 EGFR (BEAKER) (test code = 1092) 90 mL/min/1.73 sq m ESTIMATED GFR IS NOT ACCURATE CREATININE CLEARANCE IN PREDICTING GLOMERULAR FILTRATION RATE. ESTIMATED GFR IS NOT APPLICABLE FOR DIALYSIS PATIENTS. PT/[id number] 19:55:00* Test Item Value Reference Range Interpretation Comments PROTIME (BEAKER) (test code = 759) 14.1 seconds 11.7-14.7 INR (BEAKER) (test code = 370) 1.1 <=5.9 PARTIAL THROMBOPLASTIN TIME (BEAKER) (test code = 760) 28.1 seconds 22.5-36.0 RECOMMENDED COUMADIN/WARFARIN INR THERAPY RANGESSTANDARD DOSE: 2.0 - 3.0 Inclu zahra: PROPHYLAXIS for venous thrombosis, systemic embolization; TREATMENT for jesus ous thrombosis and/or pulmonary embolus.HIGH RISK: Target INR is 2.5-3.5 for pat ients with mechanical heart valves.CBC W/PLT COUNT & AUTO SNLWIGTMHZPK1951-79-08 19:54:00* Test Item Value Reference Range Interpretation Comments WHITE BLOOD CELL COUNT (BEAKER) (test code = 775) 5.8 K/ L 4.0- 10.0 RED BLOOD CELL COUNT (BEAKER) (test code = 761) 3.42 M/ L 4.00-5 .00 L HEMOGLOBIN (BEAKER) (test code = 410) 12.9 GM/DL 12.0-15.0 HEMATOCRIT (BEAKER) (test code = 411) 37.6 % 36.0-45.0 MEAN CORPUSCULAR VOLUME (BEAKER) (test code = 753) 110.0 fL 82. 0-99.0 H MEAN CORPUSCULAR HEMOGLOBIN (BEAKER) (test code = 751) 37.8 pg 27.0-33.0 H MEAN CORPUSCULAR HEMOGLOBIN CONC (BEAKER) (test code = 752) 34.4 GM/DL 32.0-36.0 RED CELL DISTRIBUTION WIDTH (BEAKER) (test code = 412) 12.3 % 10.3-14.2 PLATELET COUNT (BEAKER) (test code = 756) 254 K/CU MM 150-430 MEAN PLATELET VOLUME (BEAKER) (test code = 754) 6.8 fL 6.5-10 .5 NUCLEATED RED BLOOD CELLS (BEAKER) (test code = 413) 0 /100 WBC 0 -0 NEUTROPHILS RELATIVE PERCENT (BEAKER) (test code = 429) 43 % LYMPHOCYTES RELATIVE PERCENT (BEAKER) (test code = 430) 46 % MONOCYTES RELATIVE PERCENT (BEAKER) (test code = 431) 8 % EOSINOPHILS RELATIVE PERCENT (BEAKER) (test code = 432) 2 % BASOPHILS RELATIVE PERCENT (BEAKER) (test code = 437) 1 % NEUTROPHILS ABSOLUTE COUNT (BEAKER) (test code = 670) 2.52 K/ L 1.80-8.00 LYMPHOCYTES ABSOLUTE COUNT (BEAKER) (test code = 414) 2.70 K/ L 1.48-4.50 MONOCYTES ABSOLUTE COUNT (BEAKER) (test code = 415) 0.46 K/ L 0. 00-1.30 EOSINOPHILS ABSOLUTE COUNT (BEAKER) (test code = 416) 0.10 K/ L 0.00-0.50 BASOPHILS ABSOLUTE COUNT (BEAKER) (test code = 417) 0.05 K/ L 0. 00-0.20 CARDIAC YBINPNL5963-30-40 12:45:00<0.02[facility] OOKNVWP6989-79-80 12:45:00<0.02[facility]annCHEM NKFVQ5255-68-99 09:08:60473Jxeohxfg [facility] CHEM DCIXS4333-22-95 09:08:0011.6[facility]annCHEM NMSET9274-74-29 09:08:00 113[facility]annCHEM GSZUL8832-89-35 09:08:0025[facility]annCHEM PANEL 2016-09-19 09:08:003.6[facility]annCHE[facility] FTTWX9961-44-20 09:08:36741Wfuhkfzm HermannCHEM JAMKI6597-10-79 09:08:000.52[facility]annCHEM KYKQL3066-98-08 09:08:008.0[facility]annCHEM WQQRW5978-26-98 09:08:0014[facility]annCHE[facility] WCUMT0873-72-12 09:08:0087[facility] MqhbtydRVZKTAENLZ9984-48-75 09:08:002+ *ABN*(09/19/16 4:08 AM)[facility] XmdgtabAVUKTPACAV9862-04-96 09:08:000.1[facility] WespsdbOKIRJBFPEH8765-79-29 09:08:002.9[facility] IkhvdckFSPOJWCXAX0561-54-90 09:08:000.5[facility] XgfxblsUFKZZOVYLD8211-97-55 09:08:001.9[facility] EXZAFFAEJU3871-25-02 09:08:000.2[facility] FbfsyfuLXXRJDKHQW2915-51-77 09:08:002.9 [facility] XzfksbuKIFQNRDJUI7688-50-76 09:08:0044.8[facility]annHEMATOLOGY 2016-09-19 09:08:0045.4[facility] XoefcojCYYMKPFIHX9995-90-88 09:08:007.7[facility] TtqccbnMJCBXPRQLX4438-61-91 09:08:008.3[facility] XukadiqIYZMAODBGP4243-66-00 09:08:49919.7[facility] XcvuinqOZFQZXGXON7953-73-31 09:08:00* Test Item Value Reference Range Interpretation Comments MCH (test code = MCH) 36.1 pg 27.0-31.0 [facility] VdhpktwLCXPPRQFRT7766-20-52 09:08:006.4[facility]annHEMATOLOGY 2016-09-19 09:08:0034.5[facility] VldjcunKZGEQYSLUS7402-54-65 09:08:0013.3[facility] RmkboymFVCVXDUTCL7211-50-29 09:08:35764Whddfavw SsnxhcxIZHEKQYVBR9526-05-38 09:08:003.30[facility] RapjoxvRBQFVHPSIX0875-05-30 09:08:0034.6[facility] WLAMIEJHEQ6355-17-43 09:08:0011.9[facility] AnoaaduPLGJXORYKD6171-26-00 09:08:0034 [facility] AwnyhwtDGOPTG0909-83-13 09:08:004.14[facility] FyotqwpYIKDAA9628-25-48 09:08:0035[facility] NubcltwPSSSXT7602-02-56 09:08:35485Hkgharcy HermannLIPIDS 2016-09-19 09:08:63942Zrnlpold HjpsxfcCNXDEO2632-36-96 09:08:0021[facility] EnlubuxTFAUKY5366-36-51 09:08:0089[facility]annSPECIAL ECKOMDVZW1912-80-84 09:08:004.9[facility]annCHEM MNLLO5221-24-54 09:08:95193Umjidxcn HermannCHEM PBSYS9155-43-91 09:08:0011.6[facility]annCHEM MWSDW7083-79-11 09:08:92324 [facility]annCHE[facility] EJWSQ2207-50-95 09:08:0025[facility]annCHEM PANEL 2016-09-19 09:08:003.6[facility]annCHEM WFTXM5387-75-96 09:08:82973Phllgxun HermannCHEM GBYKX1732-02-43 09:08:000.52[facility] HermannCHEM NJEKN4981-92-05 09:08:008.0[facility]annCHEM PJNQK0117-02-79 09:08:0014[facility]annCHEM IFTIA3029-30-92 09:08:0087[facility] SyibjymAFNPQQPOHF3306-13-64 09:08:002+ *ABN*(09/19/16 4:08 AM)[facility] SpryrdcMJZICVOLXC9055-02-52 09:08:000.1[facility] YyvfasiKFCOTATWXD7471-31-52 09:08:002.9[facility] QjdxcooJKCASSINZW1621-28-77 09:08:000.5[facility] JfplymoVVECXAXCUO0224-03-61 09:08:001.9[facility] TVYGLXSTES5658-15-08 09:08:000.2[facility] VjgetygQIRXVIZFAK7137-44-48 09:08:002.9 [facility] YqmetkaRAXRXFWATV5462-11-81 09:08:0044.8[facility]annHEMATOLOGY 2016-09-19 09:08:0045.4[facility] TaamwidYPCMYJKHWS9290-85-53 09:08:007.7[facility] MfiuwhdMCESXKCOYG3100-43-79 09:08:008.3[facility] OiytihvNEKWXBODFO2777-07-56 09:08:64898.7[facility] AvkpczeOJPORNVSSV1239-21-59 09:08:00* Test Item Value Reference Range Interpretation Comments MCH (test code = MCH) 36.1 pg 27.0-31.0 [facility] JkhfwyoHOHVOXVEOS9142-07-33 09:08:006.4[facility]annHEMATOLOGY 2016-09-19 09:08:0034.5[facility] FjydxfhMOQSKSZXMI7303-64-47 09:08:0013.3[facility] YbiwvvqUVACMMWMIW8089-60-39 09:08:39422Zsosllgf MqcewwyVWFOOIWGFP8654-32-61 09:08:003.30[facility] LnhzyznYFSQOTDBWG3049-36-16 09:08:0034.6[facility] FCWHWVCWOF2730-74-85 09:08:0011.9[facility] PpbxrueETGEHJAEQU7699-29-36 09:08:0034 [facility] KrufzcyWXTYZS5549-28-19 09:08:004.14[facility] RpquzllOWKXUI7879-40-04 09:08:0035[facility] TtoghzxKQIFGK5124-09-07 09:08:57898Dxjckyxm HermannLIPIDS 2016-09-19 09:08:90657Mwvywlxi QxepwrgWORMNF4834-02-31 09:08:0021[facility] CltbqpjWGPARE1585-26-88 09:08:0089[facility]annSPECIAL UUWZVOCPC8673-88-34 09:08:004.9[facility]annDRUG NTANBF5139-89-43 00:54:00See Note (09/18/16 7:54 PM)[facility] ZKUPXF4138-05-81 00:54:00Positive *ABN*(09/18/16 7:54 PM) [facility] ZQKAKD3812-21-79 00:54:00Negative *NA*(09/18/16 7:54 PM) [facility] JQMWUV3419-96-61 00:54:00Negative *NA*(09/18/16 7:54 PM) [facility] BWZWCL4301-18-64 00:54:00Negative *NA*(09/18/16 7:54 PM) [facility] OWGEWE0048-57-42 00:54:00Negative *NA*(09/18/16 7:54 PM) [facility] BJUVJD6223-65-08 00:54:00Negative *NA*(09/18/16 7:54 PM) [facility] JJXSTK5551-28-17 00:54:00Negative *NA*(09/18/16 7:54 PM) [facility] ALJWB0413-06-76 00:54:00Negative (09/18/16 7:54 PM) [facility] GYHBK4470-58-61 00:54:00Negative *NA*(09/18/16 7:54 PM) [facility] PTXPL3940-13-65 00:54:00Negative (09/18/16 7:54 PM) [facility] CPBHK2300-03-40 00:54:000.2[facility] JNZAQ6206-47-65 00:54:00Negative (09/18/16 7:54 PM)[facility] SHDXG2702-97-70 00:54:00* Test Item Value Reference Range Interpretation Comments UA Spec Grav (test code = UA Spec Grav) 1.010 1 [facility] JLAVZ5696-58-72 00:54:00* Test Item Value Reference Range Interpretation Comments UA pH (test code = UA pH) 6.0 1 5.0-8.0 [facility] DHWPH1317-99-44 00:54:00Yellow *NA*(09/18/16 7:54 PM) [facility] CRQJA2177-87-65 00:54:00Clear (09/18/16 7:54 PM) [facility] PPJV9794-60-81 00:54:00Negative (09/18/16 7:54 PM)[facility] CGBRBT9676-24-40 00:54:00See Note (09/18/16 7:54 PM)[facility] LIGBYU5290-06-94 00:54:00Positive *ABN*(09/18/16 7:54 PM)[facility] FSBLFV8454-53-64 00:54:00Negative *NA*(09/18/16 7:54 PM)[facility] GHZRGE9080-00-58 00:54:00Negative *NA*(09/18/16 7:54 PM)[facility] EXWQCX3487-11-60 00:54:00Negative *NA*(09/18/16 7:54 PM)[facility] LRVDOS4352-75-33 00:54:00Negative *NA*(09/18/16 7:54 PM)[facility] ZQFXMW1315-33-84 00:54:00Negative *NA*(09/18/16 7:54 PM)[facility] WQFDXM6321-13-65 00:54:00Negative *NA*(09/18/16 7:54 PM)[facility] MFREN4539-04-90 00:54:00Negative (09/18/16 7:54 PM)[facility] EJWVJ1184-78-63 00:54:00Negative *NA*(09/18/16 7:54 PM)[facility] JMDAK2083-15-81 00:54:00Negative (09/18/16 7:54 PM)[facility] OOYIO1458-47-59 00:54:000.2[facility] ALDKU8943-87-11 00:54:00 Negative (09/18/16 7:54 PM)[facility] APUUO3911-97-38 00:54:00* Test Item Value Reference Range Interpretation Comments UA Spec Grav (test code = UA Spec Grav) 1.010 1 [facility] [id number] 00:54:00* Test Item Value Reference Range Interpretation Comments UA pH (test code = UA pH) 6.0 1 5.0-8.0 [facility] NUCZQ0606-96-66 00:54:00Yellow *NA*(09/18/16 7:54 PM) [facility] CJMXV2637-59-62 00:54:00Clear (09/18/16 7:54 PM) [facility] WFDN3484-59-61 00:54:00Negative (09/18/16 7:54 PM)[facility]annCARDIAC LXKRLQR2020-45-29 00:46:00<0.02[facility]annCARDIAC ENZYMES 2016-09-19 00:46:00<1.0[facility]annCARDIAC PHDUPVL3017-55-89 00:46:0045 [facility]AC DPWHDZZ3635-93-08 00:46:0034[facility]annCARDIAC TOJHSAU1136-90-40 00:46:00<2.2[facility]annCHEM FSEHK8435-87-24 00:46:001.8 [facility]annCHEM PPUQG8633-43-57 00:46:41632Jwfkuvlu HermannCHEM PANEL 2016-09-19 00:46:003.7[facility]annCHEM FBFBP0870-59-04 00:46:003.0[facility]annCHEM IKZUG1393-94-89 00:46:67188Jrocezya HermannCHEM MHLSX5716-72-86 00:46:0028[facility]annCHEM FPKGT5479-41-50 00:46:000.8[facility] HermannCHEM MVTGH8069-70-98 00:46:19715Nedqyjcp HermannCHEM WKFRX6213-22-46 00:46:006.7 [facility]annCHEM TIXDU8318-64-04 00:46:0017[facility] HermannCHEM PANEL 2016-09-19 00:46:008.2[facility] HermannCHEM EUYWK2722-27-98 00:46:003.0[facility]annCHEM ASZZM5377-67-16 00:46:0011[facility]annCHEM ZRQFF2925-41-85 00:46:0010.0[facility]annCHEM TTDWQ1091-65-88 00:46:006[facility]annCHEM SUZKA0470-62-06 00:46:000.1[facility]annCHEM ZVJNV0078-24-05 00:46:0039 [facility]annCHEM QVHYU7652-84-93 00:46:000.70[facility] HermannCHEM PANEL 2016-09-19 00:46:0012[facility] HermannCHEM VVDGE0350-53-80 00:46:0093[facility]annCHEM TMZNV1053-75-97 00:46:40004Ysnzyrqd TupuggoICWWRFSEFS6877-83-24 00:46:00* Test Item Value Reference Range Interpretation Comments PTT (test code = PTT) 28.6 s 22.9-35.8 [facility] ZqahpyvIGFGJQUUKS5613-72-57 00:46:008.3[facility] HermannHEMATOLOGY 2016-09-19 00:46:0034.8[facility] BmcaidjOIQMFZDXNH9187-09-43 00:46:12488Vovoqatk EhmojziYNPXVPVSJV5634-27-54 00:46:0013.2[facility] NqpdbxsVDBUWUOPSD3691-31-09 00:46:00* Test Item Value Reference Range Interpretation Comments MCH (test code = MCH) 36.2 pg 27.0-31.0 [facility] GyyaivdHTHXYXFTOY8517-17-50 00:46:40407.0[facility]MAT[facility] 2016-[facility]-19 00:46:007.1[facility] IokfxgaCFMBIKHHXV0456-26-09 00:46:003.23[facility] YemrkrgGZVAKZNIAZ1624-65-76 00:46:0011.7[facility] HnupiqlZHOQHXRAXA5955-80-92 00:46:0033.6[facility] AsjniwbLJLMIZQQKJ5254-66-09 00:46:00* Test Item Value Reference Range Interpretation Comments PT (test code = PT) 13.8 s 12.0-14.7 [facility] AqmdycwNTAFAAIVGO7868-49-38 00:46:001.04[facility]annHEMATOLOGY 2016-09-19 00:46:001+ *ABN*(09/18/16 7:46 PM)[facility] UilbantWXLVPBJWII1916-12-52 00:46:0048.8[facility] RgvrspiNAUSWWEIHG3693-38-93 00:46:0042.4[facility] AJYBWNZVTF9004-80-00 00:46:001.5[facility] FqoocvoYFPOKVHWNN4492-24-15 00:46:007.1 [facility] XozbjofGASSAAYISK7330-36-80 00:46:000.5[facility]annHEMATOLOGY 2016-09-19 00:46:003.5[facility] DdyrninBQQGWTZCSL6526-55-39 00:46:003.0[facility] JealdztSCJKLJWBUQ7781-75-25 00:46:000.2[facility] YuanxqmQIYRUEZLGE7596-68-81 00:46:000.1[facility]annCARDIAC OVJKTTL2276-34-73 00:46:00<0.02[facility]annCARD[facility]AC LAZNIVG9582-59-39 00:46:00<1.0[facility]annCARDIAC ENZYMES 2016-09-19 00:46:0045[facility]AC POZOIJZ5692-25-98 00:46:0034 [facility] FZQSITK9619-13-29 00:46:00<2.2[facility]annCHEM PANEL 2016-09-19 00:46:001.8[facility]annCHEM GSQZM2295-24-97 00:46:98672Vvdcazvi HermannCHEM CQICJ4500-33-29 00:46:003.7[facility]annCHEM ONJSF4359-56-59 00:46:003.0[facility]annCHEM IHPZM8211-42-94 00:46:43291Crhewveh HermannCHEM IBLNR9738-55-31 00:46:0028[facility]annCHEM ZQXOK0561-90-46 00:46:000.8 [facility]annCHEM MMREN3126-80-78 00:46:86557Tamcfmwt HermannCHEM PANEL 2016-09-19 00:46:006.7[facility]annCHEM ILUEG9778-47-28 00:46:0017[facility]annCHEM ENDXJ2651-77-76 00:46:008.2[facility]annCHEM PFHCF7439-29-41 00:46:003.0[facility]annCHEM RITSU7912-04-75 00:46:0011[facility]annCHEM XDESV4602-15-63 00:46:0010.0[facility]annCHEM AZQEX9241-69-56 00:46:006 [facility]annCHE[facility] DXBBI5555-72-07 00:46:000.1[facility]annCHEM PANEL 2016-09-19 00:46:0039[facility]annCHEM ARCYY5404-16-95 00:46:000.70[facility]annCHEM URTRV5461-43-99 00:46:0012[facility]annCHEM PFYSM6584-34-13 00:46:0093[facility]annCHEM QEVTJ5592-76-50 00:46:39219Ulpiwhiv Bartolome VBATITKYYN3859-37-96 00:46:00* Test Item Value Reference Range Interpretation Comments PTT (test code = PTT) 28.6 s 22.9-35.8 [facility] ScwhaejCQXEWURBVY9614-90-41 00:46:008.3[facility]annHEMATOLOGY 2016-09-19 00:46:0034.8[facility] OintykuFFRTWTXZPN6329-66-82 00:46:00648Dsfwgeyo HubfruuDUDVHKPQMX9157-09-50 00:46:0013.2[facility] GqhiuhwQQDUOZUCPS2382-03-76 00:46:00* Test Item Value Reference Range Interpretation Comments MCH (test code = MCH) 36.2 pg 27.0-31.0 [facility] DxraqwqLNAYGAINDD9350-99-32 00:46:81665.0[facility]annHEMATOLOGY 2016-09-19 00:46:007.1[facility] VwrtvkuREOZVPKJXG2326-85-77 00:46:003.23[facility] PwkdhwjOULETZXLZU3421-19-85 00:46:0011.7[facility] NnsydkwQXBFRINQLX3681-39-34 00:46:0033.6[facility] JdbabuyFSDXBQVGJN7922-70-52 00:46:00* Test Item Value Reference Range Interpretation Comments PT (test code = PT) 13.8 s 12.0-14.7 [facility] LlidjwnQHVFXHHDID3392-42-86 00:46:001.04[facility]annHEMATOLOGY 2016-09-19 00:46:001+ *ABN*(09/18/16 7:46 PM)[facility] TxlxxrmTRYWAPUGUW6662-14-23 00:46:0048.8[facility] QebmlvdUDCYPLLGNV8628-16-61 00:46:0042.4[facility] LYICMNNDUL3883-10-91 00:46:001.5[facility] HprrhmySAWMXGYUGF6284-94-50 00:46:007.1 [facility] GttihbpGCOVKOACHG0218-93-82 00:46:000.5[facility]annHEMATOLOGY 2016-09-19 00:46:003.5[facility] SgcvpzkSWCALPWHRO6516-84-46 00:46:003.0[facility] OxhgzpvWWZSZMAPXI7364-58-93 00:46:000.2[facility] XfcjkytPZMQSDDSWI1912-83-63 00:46:000.1[facility]annCARDIAC AHVLYFN5050-65-80 21:00:00<0.02[facility]annCARDIAC VKZSPKL6786-80-74 21:00:0049[facility]annCARDIAC ENZYMES 2016-09-04 21:00:00<0.02[facility]annCARDIAC ZYMBFBF8529-08-62 21:00:0049 [facility] MKWAGQJ0287-40-85 15:24:00<0.9[facility]annCARDIAC HYIQVSF7010-30-43 15:24:00<1.0[facility]annCARDIAC JDADMLI2220-79-45 15:24:00 <0.02[facility]annCARDIAC OQPEGTG6225-80-53 15:24:82271Bywyecre Zebulon CARDIAC JBCNHIZ9333-93-22 15:24:00<0.9[facility]annCARDIAC VBVEMKK5572-56-24 15:24:00<1.0[facility]annCARDIAC PPCXRQC5642-38-01 15:24:00<0.02[facility]annCARDIAC DBWVBCI7894-11-15 15:24:95664Wgifkene HermannCARDIAC ENZYMES 2016-09-04 10:53:0057[facility]annCARDIAC BLXRAST0673-62-03 10:53:00<1.0 [facility]annC[facility]AC ITBGUEP0761-07-66 10:53:00<0.02[facility]annCARDIAC OQWPSHM4677-17-66 10:53:00<1.8[facility] HermannCHEM MCQOF1059-74-96 10:53:69606 [facility]annCHEM FTLJV4187-61-34 10:53:0010[facility]annCHEM PANEL 2016-09-04 10:53:0091[facility]annCHEM OQEMU7596-97-56 10:53:68515Glidlxov HermannCHEM JVTWV9397-20-69 10:53:000.52[facility]annCHEM YCCJX9870-72-54 10:53:000.8[facility]annCHEM FXOSC9343-37-90 10:53:004.2[facility]annCHEM YJDOI8432-96-03 10:53:0019[facility]annCHEM QQMCT0052-97-38 10:53:008[facility]annCHEM ZCBKZ0470-36-96 10:53:0011.4[facility]annCHEM PJKSK8794-88-08 10:53:000.2[facility]annCHEM ZUHCH8610-80-87 10:53:003.4[facility]annCHEM IIVKE4691-15-20 10:53:008[facility]annCHEM DPDAZ1949-59-48 10:53:0036[facility]annCHEM ZUDYZ8381-32-93 10:53:41252Bevulyog HermannCHEM RVXMC1841-70-64 10:53:003.4[facility]annCHEM QPBKE3449-73-88 10:53:0023[facility]annCHEM WXWJK6628-27-51 10:53:007.6[facility]annCHEM XXCXH8913-36-75 10:53:008.5 [facility] ImbwyroFLFDAWIZADDHM5774-41-70 10:53:00Negative *NA*(09/04/16 5:53 AM) [facility]annCARDIAC MRJMTYI7203-84-40 10:53:0057[facility]annCARDIAC FQVNYRG7203-62-58 10:53:00<1.0[facility]annCARDIAC ISWMIZD6411-47-73 10:53:00 <0.02[facility]annCARDIAC KQZPWZH2175-70-86 10:53:00<1.8[facility]annCHEM YBLAU4869-53-60 10:53:41365Ewqcqehw HermannCHEM OMDUJ7671-96-06 10:53:0010 [facility]annCHEM BUCBH0806-62-47 10:53:0091[facility]annCHEM PANEL 2016-09-04 10:53:87701Dhwunoxo HermannCHEM FWRZP5163-93-99 10:53:000.52[facility]annCHEM HYYSZ9807-58-16 10:53:000.8[facility]annCHEM XCEEP5264-91-73 10:53:004.2[facility]annCHEM MUFPV8419-21-54 10:53:0019[facility]annCHEM TLYYC7575-75-41 10:53:008[facility]annCHEM KEPFT9057-88-96 10:53:0011.4 [facility]annCHEM BQNCS2302-30-81 10:53:000.2[facility]annCHEM PANEL 2016-09-04 10:53:003.4[facility]annCHEM JMRQH4446-07-17 10:53:008[facility]annCHEM MVBKF7163-59-41 10:53:0036[facility]annCHEM QKKAT3013-34-66 10:53:86615Zthqffve HermannCHEM IWPEY2152-80-36 10:53:003.4[facility] HermannCHEM FVADC8718-88-07 10:53:0023[facility]annCHEM RKRLU3356-02-28 10:53:007.6 [facility]annCHEM YDQXE0409-21-02 10:53:008.5[facility] HermannENDOCRINOLOGY 2016-09-04 10:53:00Negative *NA*(09/04/16 5:53 AM)[facility]annCARDIAC ENZYMES 2016-09-04 09:29:0040[facility] XqfrqapPWAJOGYIEM9253-92-67 09:29:12054Umzupaqy YbfijvjLBIQQZIKFS5262-30-53 09:29:008.3[facility] AzgittbBNFHFBJOUY7432-45-33 09:29:003.61[facility] JdzsfbmTGKFVNIOOE4531-65-45 09:29:16045.0[facility] BXDLTCNYGU2844-85-34 09:29:00* Test Item Value Reference Range Interpretation Comments MCH (test code = MCH) 36.3 pg 27.0-31.0 [facility] CegxnuuLIDJBLWRVY4700-39-07 09:29:0037.9[facility]annHEMATOLOGY 2016-09-04 09:29:0034.6[facility] CorszfhDDTGXYRUSS4601-40-20 09:29:0013.2[facility] DrcrhtjABZDGZTFZW8653-22-71 09:29:0013.1[facility] RiugbozIRFBIGGTFJ1914-09-97 09:29:007.1[facility] UsvuoudGPGBVEUPWO7860-98-86 09:29:003.1[facility] BTDHEWEMOP2833-53-92 09:29:002.8[facility] BbsdhxzCVDCXKXJMT8927-88-48 09:29:003.2 [facility] VjodhlhCHRVVRYNEI7516-74-50 09:29:000.4[facility]annHEMATOLOGY 2016-09-04 09:29:000.5[facility] ZcxanbwPMHWTHRMCC8470-08-63 09:29:002+ *ABN*(09/04/16 4:29 AM)[facility] PdrhhstPVIKPVYJPF7204-47-65 09:29:000.2[facility] CstprlpLVFTDOHIPU2141-32-62 09:29:0044.0[facility] YmxaocvNWYFSFFTXP2568-03-80 09:29:0045.3[facility] HhieaeuSNOKKRIOEZ5069-68-20 09:29:007.5[facility] CARDIAC FOIIGMB4227-42-25 09:29:0040[facility] ZzkawofURLIVERRLT5174-69-00 09:29:50568Qkfpnpdo RxtilmgDQXTRNIJIZ7038-38-43 09:29:008.3[facility] LUOYWULXLN2152-22-02 09:29:003.61[facility] AyvqcnwZDQFBEBHPJ7668-43-67 09:29:00 105.0[facility] YujqsmhJQYXOZHNKN0698-39-51 09:29:00* Test Item Value Reference Range Interpretation Comments MCH (test code = MCH) 36.3 pg 27.0-31.0 [facility] QxesddqEDFCSLQSUC2676-84-78 09:29:0037.9[facility]annHEMATOLOGY 2016-09-04 09:29:0034.6[facility] ChwdavrJOQJUBHACK8160-47-43 09:29:0013.2[facility] PxccwzjABHKUDECSL3424-60-15 09:29:0013.1[facility] AbfkwcjGMGWETVDMF0973-21-74 09:29:007.1[facility] DzyqimqQSKNJTYDTZ9264-72-69 09:29:003.1[facility] SLUFKWABSU3786-87-63 09:29:002.8[facility] FrxiyqlJWCWAOQPYI7198-62-54 09:29:003.2 [facility] ZhgvwaiHFMOPWOJXJ7529-19-70 09:29:000.4[facility]annHEMATOLOGY 2016-09-04 09:29:000.5[facility] HrdmpgdYASENYKEZJ5127-89-15 09:29:002+ *ABN*(09/04/16 4:29 AM)[facility] GsmgfshGGGEGWUKME8113-63-62 09:29:000.2[facility] KctebtmOCXSOBWDVZ8687-19-22 09:29:0044.0[facility] MmkxelkXVCPPCNOOM3957-80-89 09:29:0045.3[facility] GocnugqHJIOVEKRLX3384-90-35 09:29:007.5[facility] HermannCHEM TWXGM0633-59-74 13:49:002.0[facility]annCHEM DFXTX7036-35-90 13:49:0099 [facility]annCHEM CBZBQ6340-95-39 13:49:0024[facility]annCHEM PANEL 2016-05-17 13:49:009.2[facility]annCHEM FTQXZ1879-92-15 13:49:0015.7[facility]annCHEM EATYH2131-38-71 13:49:000.82[facility]annCHEM PAOZH3751-38-49 13:49:08341Xnqswwwd HermannCHEM CAEPO8625-52-10 13:49:003.7[facility]annCHEM TZAAG5711-48-77 13:49:0010[facility]annCHEM NJBZX1452-33-59 13:49:51340 [facility]annCHEM MBMUW1415-26-84 13:49:33224Ltmannjh HermannCHEM PANEL 2016-05-17 13:49:002.0[facility]annCHEM MCKUH9674-54-56 13:49:0099[facility]annCHEM OCJAE7192-84-42 13:49:0024[facility]annCHEM WPHEA4684-05-69 13:49:009.2[facility]annCHEM VBHMQ1259-68-96 13:49:0015.7[facility]annCHEM LRZJF8403-78-36 13:49:000.82[facility]annCHEM GMMLV5456-46-79 13:49:72718 [facility]annCHEM AJVMF4194-86-57 13:49:003.7[facility]annCHEM PANEL 2016-05-17 13:49:0010[facility]annCHEM CSATR2029-26-60 13:49:32759Fmafoekv HermannCHEM OIYQY5480-52-50 13:49:10071Egtqbtit HermannVIRAL - SEROLOGY 2016-05-17 05:02:00Negative (05/16/16 11:02 PM)[facility]annVIRAL - SEROLOGY 2016-05-17 05:02:00Negative (05/16/16 11:02 PM)[facility]annVIRAL - SEROLOGY 2016-05-17 05:02:00Negative (05/16/16 11:02 PM)[facility]annVIRAL - SEROLOGY 2016-05-17 05:02:00Negative (05/16/16 11:02 PM)[facility]annCARDIAC ENZYMES 2016-05-16 15:38:0047[facility]annCARDIAC AKCPFEL9618-33-29 15:38:00<0.02 [facility]annCARDIAC WZVYIUY1275-15-68 15:38:0047[facility]annCARDIAC DZXDWLJ0934-91-90 15:38:00<0.02[facility]annCARDIAC RRSRCWV7626-61-77 14:09:00<0.02[facility]annCARDIAC OWPEPYU5684-87-66 14:09:0043[facility]annCARDIAC FRUIYWQ2297-52-50 14:09:00<0.02[facility]annCARDIAC ENZYMES 2016-05-16 14:09:0043[facility]annCHEM ZVYNI5557-30-05 11:45:001.8[facility]annCHEM VMRXB7079-89-06 11:45:001.8[facility]annCARDIAC VHTAQXA2295-66-11 09:36:00<0.02[facility]annCARDIAC ILDUHMU7903-66-88 09:36:0051[facility]annCARDIAC HCVUIRJ3194-33-68 09:36:00<0.5[facility]annCARDIAC ENZYMES 2016-05-16 09:36:00<1.0[facility]annCHEM KAQGB2699-17-53 09:36:0038[facility]annCHEM OYZUJ5670-33-33 09:36:06371Libuaifr HermannCHEM NHPRC8520-20-49 09:36:31545Rqlhiifd HermannCHEM BQJCB8876-94-56 09:36:006[facility]annCHEM JCZNA8961-84-03 09:36:000.4[facility]annCHEM MHDGU4028-78-64 09:36:0010 [facility]annCHEM LYRKZ1499-80-21 09:36:009[facility]annCHEM PANEL 2016-05-16 09:36:004.8[facility]annCHEM XNVCH6437-34-99 09:36:000.7[facility]annCHEM UYMLY9629-47-28 09:36:003.5[facility]annCHEM XRCLG0601-97-98 09:36:008.7[facility]annCHEM VSUMX7669-30-94 09:36:008.3[facility]annCHEM SGEEC7391-49-85 09:36:0011.7[facility]annCHEM XNZPS6641-74-95 09:36:0010 [facility]annCHEM NPKQV3474-98-96 09:36:58787Ezzndwsi HermannCHEM PANEL 2016-05-16 09:36:0024[facility]annCHEM CCAER1673-40-60 09:36:000.62[facility]annCHEM ARHCV0606-51-74 09:36:77501Shqzgxem HermannCHEM EKKRB9006-13-79 09:36:002.7[facility] ZicwymyFAEGJFSKNZSVV4093-28-57 09:36:00Negative *NA*(05/16/16 3:36 AM)[facility] PtdyzqzDZXTJQAKNH8151-92-09 09:36:96081Pjxtydrp IlejaroMHCXATAPFS2112-10-07 09:36:0013.2[facility] AbtdgccREDRQGIJWH0589-27-73 09:36:008.9[facility] OdmyzruCYEHPNWIXZ1451-10-21 09:36:0035.2[facility] DJWBJWCSWT0381-65-61 09:36:0013.9[facility] DgtejclMVOOMNXBGL0411-15-70 09:36:00* Test Item Value Reference Range Interpretation Comments MCH (test code = MCH) 36.0 pg 27.0-31.0 [facility] FfogfnqFZGIPWCABI1962-00-58 09:36:56390.5[facility]annHEMATOLOGY 2016-05-16 09:36:0039.6[facility] UajeytnIQYNDROFOG5738-62-86 09:36:009.1[facility] EeowwpzDJGFOIKMOS3770-03-65 09:36:003.86[facility] TfnmdoiHICVWVQRZI6721-12-72 09:36:000.5[facility] RipxgmaUBTXTXEGDX4958-61-14 09:36:001+ *ABN*(05/16/16 3:36 AM)[facility] WlebdejRWZGBLAMKP4179-41-31 09:36:000.2[facility]annHEMATOLOGY 2016-05-16 09:36:005.8[facility] CsqaktqABAUARFDSW3573-51-54 09:36:0025.1[facility] SilpgecGDVQZVAJHR1151-18-68 09:36:000.2[facility] GuceareANYYHKHFCU6542-87-23 09:36:002.4[facility] MhayqitDTURPHIZBH9733-13-41 09:36:002.3[facility] YWQJTFBKRV6064-34-42 09:36:006.1[facility] PmppvwlVRIALETESW4564-84-89 09:36:00 66.5[facility]annCARDIAC SVIYWOX0901-41-43 09:36:00<0.02[facility] CARDIAC EKBHNDA5391-77-08 09:36:0051[facility]annCARDIAC UXLIMBE7839-07-00 09:36:00<0.5[facility]annCARDIAC LYRSQIR4915-59-34 09:36:00<1.0[facility] HermannCHEM YNHNE7633-41-28 09:36:0038[facility]annCHEM VVVYC7526-61-06 09:36:93948Dquovbzj HermannCHEM MXZDS0544-63-36 09:36:16583Vrhwsfgp HermannCHEM LXTJH9375-53-37 09:36:006[facility]annCHEM XOEBO2028-09-13 09:36:000.4 [facility]annCHEM FYAUC9417-81-57 09:36:0010[facility]annCHEM PANEL 2016-05-16 09:36:009[facility]annCHEM YPTNS4503-65-94 09:36:004.8[facility] HermannCHEM AACIB7517-02-75 09:36:000.7[facility]annCHEM KNPMQ0245-13-41 09:36:003.5[facility]annCHEM HBTHV4280-35-79 09:36:008.7[facility] HermannCHEM PPTXC5936-00-14 09:36:008.3[facility] HermannCHEM GJBHX8042-45-52 09:36:0011.7 [facility]annCHEM PPOAV1292-38-96 09:36:0010[facility]annCHEM PANEL 2016-05-16 09:36:58129Dqauublz HermannCHEM USVFN9721-87-51 09:36:0024[facility] HermannCHEM FQWZW3303-90-26 09:36:000.62[facility] HermannCHEM XVIEY5796-24-42 09:36:44535Dcdhdepv HermannCHEM DOXTK9178-23-86 09:36:002.7[facility] GNMVEZOVDRHHM8244-82-76 09:36:00Negative *NA*(05/16/16 3:36 AM)[facility] KDDIHCTFUP4173-60-00 09:36:12636Eiavgmvq EjyohpwGMKNBWATYL8171-33-64 09:36:00 13.2[facility] CbgyeauEAQKRGITEX2155-74-42 09:36:008.9[facility]annHEMATOLOGY 2016-05-16 09:36:0035.2[facility] ZonnvchXIUGKBDWPW5730-59-64 09:36:0013.9[facility] PnfstwuMNASXEOECS9457-20-69 09:36:00* Test Item Value Reference Range Interpretation Comments MCH (test code = MCH) 36.0 pg 27.0-31.0 [facility] MttjjbtBMQTQLWUSD3627-84-85 09:36:27640.5[facility] HermannHEMATOLOGY 2016-05-16 09:36:0039.6[facility] UpealsvPKKOKULUID7058-25-47 09:36:009.1[facility] MdbkjofRBKTRWBZMR2187-86-61 09:36:003.86[facility] DimlohoYAOHZPXTTM0077-53-35 09:36:000.5[facility] TuyafmkHOXELVXFOK5738-71-59 09:36:001+ *ABN*(05/16/16 3:36 AM)[facility] UwfsmhfFVQKMSTKRE4199-36-61 09:36:000.2[facility] HermannHEMATOLOGY 2016-05-16 09:36:005.8[facility] GewmywcKEZVZTARLD9980-84-48 09:36:0025.1[facility] UvrtumnMIOYDMGQSB9887-73-54 09:36:000.2[facility] CluuojaKEJJDMSIWM2206-34-98 09:36:002.4[facility] KjzkaxjLRVPMYJULW4896-01-87 09:36:002.3[facility] ZAKBNLAPGC0057-94-34 09:36:006.1[facility] VjnvrpdLMVOEJOZGF9401-88-02 09:36:00 66.5[facility] UkhayodXNFTILQGDY1204-72-83 20:23:00* Test Item Value Reference Range Interpretation Comments POC Activated Clotting Time (test code = POC Activated Clotting Sridhar e) 317 s [facility]resCRVDBXPCSB4573-28-96 20:23:00* Test Item Value Reference Range Interpretation Comments POC Activated Clotting Time (test code = POC Activated Clotting Sridhar e) 317 s [facility] HermannCARDIAC LKOUEHE5386-09-83 14:05:00<0.02[facility] FHRUATOOXC4107-67-83 14:05:00* Test Item Value Reference Range Interpretation Comments PTT (test code = PTT) 32.3 s 22.9-35.8 [facility]AzidyyeJHEVVEPYTJ8139-35-12 14:05:00* Test Item Value Reference Range Interpretation Comments PT (test code = PT) 14.4 s 12.0-14.7 [facility] YkbiazlCYFZWCSBCM0348-79-00 14:05:001.09[facility] HermannCARDIAC ENZYMES 2015-04-23 14:05:00<0.02[facility] LaibfrkPUDSKJIFLN6716-80-53 14:05:00* Test Item Value Reference Range Interpretation Comments PTT (test code = PTT) 32.3 s 22.9-35.8 [facility] OfrsszjXEXSAXCXNE0772-98-70 14:05:00* Test Item Value Reference Range Interpretation Comments PT (test code = PT) 14.4 s 12.0-14.7 [facility] PuxiqwpQEFOAHSQQS6743-21-40 14:05:001.09[facility] HermannCARDIAC ENZYMES 2015-04-22 14:34:00<0.02[facility]annCARDIAC EUCQUVD2688-76-28 14:34:00<0.010 [facility]annCARDIAC NOENLOO6896-32-76 14:34:0034[facility]annCARDIAC DHJGPPM9731-45-01 14:34:00<0.02[facility]annCARDIAC DIIJOFZ0753-10-01 14:34:00<0.010[facility]annCARDIAC IPTOFOF9239-49-12 14:34:0034[facility]annCARDIAC IIUBAMK3315-50-81 07:08:00<0.010[facility]annCARDIAC ENZYMES 2015-04-22 07:08:00<0.02[facility]annCARDIAC WSNURWR4368-94-79 07:08:0024 [facility]annCARDIAC RPCKDUP7014-77-50 07:08:00<0.010[facility]annCARDIAC VUEKGHY9155-46-74 07:08:00<0.02[facility] HermannCARDIAC BICWYQK1860-23-58 07:08:0024[facility] FzweiosNYHDXZKEVIQG7334-32-94 02:46:0011.4[facility] IWUEMOIAYMPN8443-82-65 02:46:0089[facility] FraiwpjLELVDBKYZSJN1304-17-64 02:46:00 8.8[facility] FbonuyaSBJOJWXWCCVY8562-85-16 02:46:0014[facility]annELECTROLYTES 2015-04-22 02:46:0030[facility] CzzvwddEOIKFIZXZKKE6683-93-97 02:46:73233Crlsreiw OjwxwuiFEJJKTNQTURG4483-42-04 02:46:004.4[facility] QcazilgSAADXXOXWXHI1026-81-39 02:46:17577Rubdggpw RbmhiwaRIXPKOSLIXZG9604-27-82 02:46:000.9[facility] WYNYDMJJOVLF9146-71-23 02:46:0083[facility] IrxemgrAYKPMHBQMJ0153-14-36 02:46:00 1.3[facility] XrwrxpeAXSUADTKPR9200-22-52 02:46:002.1[facility]annHEMATOLOGY 2015-04-22 02:46:000.3[facility] RepvpcmKBCYTBGRWX0887-18-64 02:46:000.1[facility] XoiswobHPBUOQGQCB7789-02-35 02:46:003+ *NA*(04/21/15 9:46 PM)[facility] GTDHRDBTLO3434-05-93 02:46:00Normal (04/21/15 9:46 PM)[facility]annHEMATOLOGY 2015-04-22 02:46:0056.1[facility] NgkcabsRIMNSGWFMH7047-27-29 02:46:0032.8[facility] JvgoqnbMOSWTGVIKX2573-93-63 02:46:000.4[facility] GxrklkvVMJLIXLMEG7133-90-33 02:46:003.2[facility] OndvbbsQDKGIOBVMY8954-06-08 02:46:007.5[facility] MCEGUPZZSQ6772-59-71 02:46:003.8[facility] OdsgbjwEGJKQFXBMG8369-80-69 02:46:00* Test Item Value Reference Range Interpretation Comments MCH (test code = MCH) 36.3 pg 27.0-31.0 [facility] RqrcbhtZQXBFVCNUL8421-08-70 02:46:0032.8[facility]annHEMATOLOGY 2015-04-22 02:46:0013.6[facility] OkncmwvMMKBIDLTSR4193-47-29 02:46:008.0[facility] QmqtetxZMHISXXJFQ3968-97-11 02:46:27723Taclwzfg VplomdrOKGNHHXDKL3935-04-97 02:46:0038.3[facility] AmzubbjAXZOGZBXUC8854-32-61 02:46:003.46[facility] GHMRXNDUEH2282-21-94 02:46:0012.6[facility] NqjlryeRGRMRDTWYY7627-31-11 02:46:00 110.7[facility] BafijvnALYPBQVVIF6526-66-47 02:46:000.95[facility]annHEMATOLOGY 2015-04-22 02:46:00* Test Item Value Reference Range Interpretation Comments PT (test code = PT) 13.0 s 12.0-14.7 [facility] FydlezlCZGXIZNAZA1147-50-14 02:46:00* Test Item Value Reference Range Interpretation Comments PTT (test code = PTT) 27.4 s 22.9-35.8 [facility] NczodgbJFVAVBOFGEMS5498-45-48 02:46:0011.4[facility]annELECTROLYTES 2015-04-22 02:46:0089[facility] GngycutGGJPVPYOUYIH1478-65-62 02:46:008.8[facility] CuzejwyIABWGXZYRBDL7234-85-57 02:46:0014[facility] UhqfptzHUQBZFSDVUMO8169-99-48 02:46:0030[facility] SosuluwZTBOSJNNFDTP2200-51-58 02:46:62556Ihpineqo [facility] EAJVBQQAAEHR5375-85-77 02:46:004.4[facility] HohhqozYQLCNLNPCZRS6087-09-84 02:46:62080Unblphhr CbbzyjmWIYIINSGWYTT2027-94-22 02:46:000.9[facility] KWXIIHPHIKLQ8633-94-41 02:46:0083[facility] KcodjmpJSNSEMCROS6594-61-03 02:46:00 1.3[facility] DkougmaKDGSERGVLL9264-55-25 02:46:002.1[facility]annHEMATOLOGY 2015-04-22 02:46:000.3[facility] SvtakyuDVDKQDKUKM9329-77-64 02:46:000.1[facility] MtlmklpWAGRJERYGV7420-81-99 02:46:003+ *NA*(04/21/15 9:46 PM)[facility] OZPQJBIZJB9065-79-79 02:46:00Normal (04/21/15 9:46 PM)[facility]HEMATOLOGY 2015-04-22 02:46:0056.1[facility] PxiutwvIVAARVZNXQ6849-22-26 02:46:0032.8[facility] BgkgjkgLQVBWVURPD2951-67-58 02:46:000.4[facility] LzgalpxHBIPYRWRRR6518-77-31 02:46:003.2[facility] QcgckhuGARDFKNNFD0769-24-41 02:46:007.5[facility] RBMKUWJZTM8156-31-68 02:46:003.8[facility] PkkbpqnPRBDIMKLYD9471-79-51 02:46:00* Test Item Value Reference Range Interpretation Comments MCH (test code = MCH) 36.3 pg 27.0-31.0 [facility] HslkqapPJQGZWODVY0688-98-79 02:46:0032.8[facility]annHEMATOLOGY 2015-04-22 02:46:0013.6[facility] WpvxbdrFIFOEBDORI9123-67-85 02:46:008.0[facility] XspqbguWBEZOLDYVP3698-45-44 02:46:72941Iqhjhcsp LmqjkbjAZHHLVFLGU7311-06-73 02:46:0038.3[facility] HrnntlnGODZJJINZC8130-12-12 02:46:003.46[facility] IXPCEMOFGX9879-71-41 02:46:0012.6[facility] OmyzpcnFGZWMUFGLY9549-44-37 02:46:00 110.7[facility] McvttquKHEPDMTRXY7670-63-65 02:46:000.95[facility]annHEMATOLOGY 2015-04-22 02:46:00* Test Item Value Reference Range Interpretation Comments PT (test code = PT) 13.0 s 12.0-14.7 [facility] DqnzentSMZFOLLBBZ0236-20-77 02:46:00* Test Item Value Reference Range Interpretation Comments PTT (test code = PTT) 27.4 s 22.9-35.8 [facility]annCHEM YEDMP1763-07-54 10:20:002.0[facility] HermannCHEM PANEL 2015-02-10 10:20:60925Tccqcgui HermannCHEM TOTBY4964-24-53 10:20:008.7[facility]annCHEM TAZPM0108-32-49 10:20:0021[facility]annCHEM QBHVH4882-82-96 10:20:44344Fotfstrq HermannCHEM GFOMU2272-09-78 10:20:003.9[facility] HermannCHEM WCNHL3235-32-99 10:20:38244Omwtixea HermannCHEM KSCQZ9292-42-19 10:20:000.6 [facility]annCHEM LJSNK6373-29-47 10:20:009[facility]annCHEM PANEL 2015-02-10 10:20:0090[facility] HermannCHEM LGXWR3003-04-31 10:20:0012.9[facility] HermannCHEM NUAJU7564-58-74 10:20:003.9[facility] YgqdgdcOYZHAOYYXQ1515-31-61 10:20:0013.5[facility] TobleopIHVITXRTKI0537-07-34 10:20:005.6[facility] MTMUVNMRRO7959-28-00 10:20:003.73[facility] SfphhsoIDBBBWNMAZ7491-06-65 10:20:00 105.3[facility] OywusytWZFGUYNTUW1918-91-72 10:20:0039.3[facility]annHEMATOLOGY 2015-02-10 10:20:00* Test Item Value Reference Range Interpretation Comments MCH (test code = MCH) 36.1 pg 27.0-31.0 [facility] QhrbkadXDFSYVDIFU1873-24-08 10:20:0014.9[facility]annHEMATOLOGY 2015-02-10 10:20:0034.3[facility] FqjqnpbNEDWVSWHEN9604-58-68 10:20:89686Qxlutztf UcailyxUABBYNHFLH7902-37-29 10:20:008.8[facility] CwiuyzuUADVWDVOBZ4264-77-32 10:20:000.1[facility] KnywzgiBNDRHGKSRK2471-38-51 10:20:000.5[facility] PPCTSMCPIF4647-13-54 10:20:002.8[facility] OhbiqvuPHMPFXANUW3208-92-26 10:20:008.6 [facility] IpjwvskDZSYTCZHHC0868-29-53 10:20:002.0[facility]annHEMATOLOGY 2015-02-10 10:20:000.4[facility] QmapkyeOCTGFMWBTN5102-28-65 10:20:002.2[facility] MzvkqqtHHZVUYGZYU1276-52-99 10:20:001+ *ABN*(02/10/15 5:20 AM)[facility] TIVFXXAJOV8427-20-20 10:20:0050.3[facility] DwdfgmpXKOGXHBYHU1804-02-86 10:20:00 38.7[facility] HermannCHEM CJLOR9371-42-92 10:20:002.0[facility]annCHEM PANEL 2015-02-10 10:20:92577Luekyqtj HermannCHEM VYNDM9647-16-42 10:20:008.7[facility] HermannCHEM DJDDG4050-45-00 10:20:0021[facility] HermannCHEM OCHYZ0941-65-17 10:20:27406Wrcryixr HermannCHEM KRRJP5420-90-39 10:20:003.9[facility] HermannCHEM DTQHA5518-35-25 10:20:84791Ggdvikqp HermannCHEM JHBKH7775-51-79 10:20:000.6 [facility]annCHEM BNTWB6546-33-79 10:20:009[facility]annCHEM PANEL 2015-02-10 10:20:0090[facility] HermannCHEM NGJYW9909-74-13 10:20:0012.9[facility] HermannCHEM PTAER3016-76-65 10:20:003.9[facility] JoqwtgpIRETNLEGYZ3631-44-54 10:20:0013.5[facility] UfofkztCYVGATNRER3385-76-06 10:20:005.6[facility] JXYMLCRJCB6859-24-91 10:20:003.73[facility] FtjrmzmUXBKUHWVEY1218-71-89 10:20:00 105.3[facility] HxcrmtnFVZFUQHNVK7111-46-01 10:20:0039.3[facility]annHEMATOLOGY 2015-02-10 10:20:00* Test Item Value Reference Range Interpretation Comments MCH (test code = MCH) 36.1 pg 27.0-31.0 [facility] GgwakwuWMQEUFOKNM8711-50-45 10:20:0014.9[facility]annHEMATOLOGY 2015-02-10 10:20:0034.3[facility] ChnugkwOENISGHQZB4366-74-94 10:20:21102Xbupzlmi MrtudjlNIERCHALXO9143-47-67 10:20:008.8[facility] MpbnldcEWRSNYEUUD8292-22-62 10:20:000.1[facility] CemzuakNNQUADIERU3528-91-79 10:20:000.5[facility] BNIRPYQHCQ1846-98-46 10:20:002.8[facility] ScvyhrzFBWJPWKRDR6670-17-15 10:20:008.6 [facility] PptrbtoTRWTPURWQY4604-63-66 10:20:002.0[facility]annHEMATOLOGY 2015-02-10 10:20:000.4[facility] KwypjtjOZWHGVKBUE5928-57-26 10:20:002.2[facility] CzeubnmFWIOXWERKP0125-26-04 10:20:001+ *ABN*(02/10/15 5:20 AM)[facility] WBHRNTUKFZ7126-22-86 10:20:0050.3[facility] UpghjxlSUYDNHWBOO2771-66-90 10:20:00 38.7[facility] HermannCHEM UVDBP9881-36-50 15:40:18719Mvybzaxm HermannCHEM PANEL 2015-02-09 15:40:0025[facility]annCHEM BIYFK2409-29-57 15:40:009.2[facility]annCHEM WFKCI6744-64-57 15:40:36080Bjmgnobj HermannCHEM TIWOG8220-65-83 15:40:05241Szntstrl HermannCHEM QQRZP2866-11-58 15:40:007[facility]annCHEM FJJGK2555-76-63 15:40:000.7[facility]annCHEM SYRHN0485-47-85 15:40:004.0 [facility]annCHEM DBDRX9148-07-97 15:40:73509Jgbndupk HermannCHEM PANEL 2015-02-09 15:40:0013.0[facility] TotrevrWPQMUCDSNJ6397-88-87 15:40:0034.5[facility] JpzsbhnXHGZJTNYIZ5291-95-32 15:40:008.9[facility] GhtngxqPRWCPMVYED1934-57-72 15:40:003.75[facility] NbgjyliKKTTCECSOZ5770-49-63 15:40:0013.5[facility] JRFCRLGFRF8982-20-98 15:40:0039.3[facility] WmnmstcXBRBODOOSU1012-32-92 15:40:00* Test Item Value Reference Range Interpretation Comments MCH (test code = MCH) 36.1 pg 27.0-31.0 [facility] SxerpexCSXPSWOYAH4108-33-91 15:40:0014.6[facility]annHEMATOLOGY 2015-02-09 15:40:90694Ymviifhc HgfjzvpYGFXBFVYUC6377-78-75 15:40:00376.7[facility] TqlrhzaCGIKYAZSMU0108-92-73 15:40:004.6[facility] PorsjwkOVHDACFMLM5939-54-85 15:40:002.0[facility] QmixrhjQDICFQKEYX4025-53-05 15:40:000.4[facility] RJTATUTYXH4404-88-67 15:40:001+ *ABN*(02/09/15 10:40 AM)[facility] CBFYBBMONB0246-91-77 15:40:000.1[facility] ZhtajqxVOGLCEYTBP9340-11-97 15:40:00 44.1[facility] AtmpxpmHWLXPHBSOE9475-16-13 15:40:000.5[facility]annHEMATOLOGY 2015-02-09 15:40:0044.5[facility] QedwopyVIEMFCLZGH5163-58-10 15:40:002.0[facility] EmfanrzVLFKDMDKGA9297-37-64 15:40:002.1[facility] YyoxcxrPPQZPVTFQV8824-79-96 15:40:008.9[facility]annCHEM JBPTJ8427-38-01 15:40:18952Fhuzdmxn HermannCHEM GLXOF6276-67-68 15:40:0025[facility]annCHEM HPTLI1558-42-05 15:40:009.2 [facility]annCHEM PWMDW1809-27-05 15:40:39329Nmeuashv HermannCHEM PANEL 2015-02-09 15:40:38058Vmhwgoye HermannCHEM LXGTJ9998-49-19 15:40:007[facility]annCHEM JLBIC7849-21-66 15:40:000.7[facility]annCHEM ELWEU2198-88-41 15:40:004.0[facility]annCHEM HBNAM0391-27-68 15:40:19251Nfaarpmr HermannCHEM XRPDF4246-73-80 15:40:0013.0[facility] ArfxldqKUZECGXVYV7121-16-90 15:40:0034.5 [facility] KdviiqfXDBBOJHXNK0991-93-03 15:40:008.9[facility]annHEMATOLOGY 2015-02-09 15:40:003.75[facility] TbkmmcwWFVELNMGBB9292-58-26 15:40:0013.5[facility] IzftjfbHUHLEHKGQC7997-05-47 15:40:0039.3[facility] KibqvsbOWWRQNLSEC8117-28-48 15:40:00* Test Item Value Reference Range Interpretation Comments MCH (test code = MCH) 36.1 pg 27.0-31.0 [facility] McafqgyLHGGKIJTLP0001-20-35 15:40:0014.6[facility] HermannHEMATOLOGY 2015-02-09 15:40:32268Mcaeyppl ScigbeqYIMNZPZCAL4683-78-43 15:40:09755.7[facility] OutvsxaIWSXBRKRSZ5918-76-32 15:40:004.6[facility] SkjpjabIRZNLZENBZ9653-45-68 15:40:002.0[facility] XzjbdpmEFONBZQLKU1966-53-37 15:40:000.4[facility] QHOHPZXAUQ1569-57-07 15:40:001+ *ABN*(02/09/15 10:40 AM)[facility] LUYSNEYMZH1997-97-07 15:40:000.1[facility] IkxaqifYZBPMYRAVW7046-69-03 15:40:00 44.1[facility] JfcyaibHJPEJTETGC4522-88-93 15:40:000.5[facility]annHEMATOLOGY 2015-02-09 15:40:0044.5[facility] BenwccfKXNMCFLNOE5056-56-75 15:40:002.0[facility] SbgommxUQXUGHTWIX7015-23-11 15:40:002.1[facility] WrxxfgsNYNCJFTMQP4069-32-89 15:40:008.9[facility] YkihwyaNMFVMLXQAS8198-56-51 09:58:000.8[facility] MFKYFPTLIS5846-79-33 09:58:002.7[facility] IkozjxhVRSSEVRPKL6187-65-22 09:58:000.0 [facility] UyenfyyASFZMWWQMZ9358-07-54 09:58:000.7[facility] HermannIMMUNOLOGY 2015-02-09 09:58:0039.2[facility] WqkixveKNHJNMUKRA2873-57-83 09:58:0057.4[facility] ObqisulSCPWJYYHTI1155-40-14 09:58:000.8[facility] LsdxptlKQGGYZBIER0369-99-87 09:58:002.7[facility] WcrllwzKXOPOHSETD3264-25-72 09:58:000.0[facility] XFKVONQYVE1905-12-30 09:58:000.7[facility] KhaynjvWTJPSBBMPG7803-71-79 09:58:00 39.2[facility] HfmybmiWAMCYURTMX9391-23-09 09:58:0057.4[facility] HermannANEMIA ABYAO6387-43-36 21:50:0013.3[facility] HermannANEMIA VVACL2659-41-31 21:50:94500 [facility]annCHEM YSQIV6727-74-41 21:50:000.8[facility] HermannCHEM PANEL 2015-02-08 21:50:000.1[facility]annCHEM TNLWI4445-82-83 21:50:000.7[facility] HermannCHEM GOVHG1281-97-93 21:50:006[facility]annCHEM QNIJF6989-33-46 21:50:0032[facility]annCHEM AHQPT4528-93-43 21:50:000.8[facility]annCHEM XYALB3734-19-58 21:50:003.6[facility]annCHEM WWPEN1759-71-19 21:50:004.4 [facility]annCHEM PTLPT0146-83-43 21:50:00<6[facility]annCHEM PANEL 2015-02-08 21:50:008.0[facility] HermannANEMIA JYQGM8911-45-59 21:50:0013.3 [facility] HermannANEMIA NFYUG9951-26-32 21:50:95754Ghptmemb HermannCHEM PANEL 2015-02-08 21:50:000.8[facility]annCHEM XRUND9340-86-61 21:50:000.1[facility]annCHEM MGCBQ7311-26-54 21:50:000.7[facility]annCHEM JTOLI3563-33-88 21:50:006[facility]annCHEM JCCLL8783-51-56 21:50:0032[facility]annCHEM HQXIT6422-79-26 21:50:000.8[facility]annCHEM SGIZU8841-39-91 21:50:003.6 [facility]annCHEM CQMRL5495-12-91 21:50:004.4[facility]annCHEM PANEL 2015-02-08 21:50:00<6[facility]annCHEM TQWRZ7608-31-35 21:50:008.0[facility] HermannCARDIAC IAQZEXR5162-92-90 17:51:00<0.010[facility]annCARDIAC ENZYMES 2015-02-08 17:51:0041[facility]annCARDIAC POEEJNS4729-82-53 17:51:00<0.02 [facility]annCHEM GXMGH1560-40-90 17:51:54698Kotvufrp HermannCHEM PANEL 2015-02-08 17:51:78511Xvoxfyxs HermannCHEM CDBVB8939-34-96 17:51:006[facility]annCHEM KYRCA3523-98-10 17:51:0011.2[facility]annCHEM TTQGB2212-23-84 17:51:008.3[facility]annCHEM INKYI3717-72-28 17:51:000.6[facility] HermannCHEM WELOH0811-41-05 17:51:0023[facility]annCHEM NONRG5026-70-35 17:51:84420 [facility]annCHEM PQTYN5052-66-54 17:51:18840Lsxzfbax HermannCHEM PANEL 2015-02-08 17:51:004.2[facility] NynaqzsKXTWBBSTOD0789-99-67 17:51:001.13[facility] MoypkiwJPXKTUTDZK6173-13-55 17:51:00* Test Item Value Reference Range Interpretation Comments PT (test code = PT) 14.6 s 12.0-14.7 [facility] FidnbdaWRDPRLGOMN2394-80-70 17:51:00* Test Item Value Reference Range Interpretation Comments PTT (test code = PTT) 37.5 s 22.9-35.8 [facility]annCARDIAC RBTQPWE9899-52-64 17:51:00<0.010[facility]annCARDIAC YKGUYWG3562-78-57 17:51:0041[facility]annCARDIAC UPMMZIQ6792-90-37 17:51:00< 0.02[facility]annCHEM CMSQF2629-86-34 17:51:49103Vnokxtes HermannCHEM PANEL 2015-02-08 17:51:52658Mecvoyqp HermannCHEM ENDFJ7052-76-18 17:51:006[facility]annCHEM MQNDM1294-10-28 17:51:0011.2[facility]annCHEM LVBWE9214-64-65 17:51:008.3[facility]annCHEM KUCRD8201-82-71 17:51:000.6[facility]annCHEM PXLUN6365-11-36 17:51:0023[facility]annCHEM MTUVG6869-18-26 17:51:21153 [facility]annCHEM HRIYF0898-62-81 17:51:37753Ldkqdyxh HermannCHEM PANEL 2015-02-08 17:51:004.2[facility] YcdtrunTXGZWGUYVL4550-52-46 17:51:001.13[facility] CqnxrtsXDLRHJPUVK1777-70-41 17:51:00* Test Item Value Reference Range Interpretation Comments PT (test code = PT) 14.6 s 12.0-14.7 [facility] MqjlkrlSZBIXBWFGR2018-93-95 17:51:00* Test Item Value Reference Range Interpretation Comments PTT (test code = PTT) 37.5 s 22.9-35.8 [facility]annCARDIAC VQDIXDV8046-12-75 09:38:00<0.02[facility]annCARDIAC RQXNEIQ3789-74-25 09:38:00<0.02[facility] HermannDRUG DOFNBX2993-22-03 07:30:00 Negative *NA*(02/08/15 2:30 AM)[facility]annDR[facility] CDMGUQ6369-07-62 07:30:00 Negative *NA*(02/08/15 2:30 AM)[facility]annDR[facility] LFXBEI3133-70-32 07:30:00 Negative *NA*(02/08/15 2:30 AM)[facility]annDR[facility] DXFSOD1895-01-09 07:30:00See Note (02/08/15 2:30 AM)[facility]annDR[facility] XWTSFR8695-39-70 07:30:00Negative *NA*(02/08/15 2:30 AM)[facility]annDRUG [place]0639-30-60 07:30:00Negative *NA*(02/08/15 2:30 AM)[facility]annDR[facility] OXTWMI4484-23-12 07:30:00Positive *ABN*(02/08/15 2:30 AM)[facility]annDR[facility] LWMVUA3453-46-28 07:30:00Positive *ABN*(02/08/15 2:30 AM)[facility]annDR[facility] FODZBC3650-29-20 07:30:00Negative *NA*(02/08/15 2:30 AM)[facility]annDR[facility] TNBCBD5961-89-44 07:30:00Negative *NA*(02/08/15 2:30 AM)[facility]annDR[facility] TLGOYM1886-54-15 07:30:00Negative *NA*(02/08/15 2:30 AM)[facility]annDR[facility] POQJWX7416-79-71 07:30:00See Note (02/08/15 2:30 AM)[facility]annDR[facility] SPJOZK8411-36-97 07:30:00Negative *NA*(02/08/15 2:30 AM)[facility]annDR[facility] PNTIWG4560-89-36 07:30:00Negative *NA*(02/08/15 2:30 AM)[facility]annDR[facility] UFUUAQ7295-21-31 07:30:00Positive *ABN*(02/08/15 2:30 AM)[facility]annDR[facility] TNDOSX9936-38-57 07:30:00Positive *ABN*(02/08/15 2:30 AM)[facility] HermannCARDIAC FWKOYGC1162-50-10 07:18:0044 [facility] OlaedbeVIOOPOSTOY2537-70-78 07:18:000.0[facility] HermannHEMATOLOGY 2015-02-08 07:18:003.3[facility] ClzbwxlTIYGAFRSIN1473-47-59 07:18:000.1[facility] BluowaaETEVJZPZEY5670-27-05 07:18:003.5[facility] XknbowhDDRJZECIVH9801-04-61 07:18:000.1[facility] UrbqxkmAALNCROGVY9810-37-02 07:18:0050.0[facility] AHQNELGELS2168-17-96 07:18:0047.0[facility] RcgvkyvVHLUPSCAJE5728-85-63 07:18:00 0.0[facility] OocdmhvDLUYWQYKFS8563-90-50 07:18:001.0[facility]annHEMATOLOGY 2015-02-08 07:18:002.0[facility] AfxtujxDVNOOGPIRZ2570-43-66 07:18:00* Test Item Value Reference Range Interpretation Comments Tot Cell Ct (test code = Tot Cell Ct) 100 1 [facility] QsmtbkqYPNMFTQPOB7780-18-06 07:18:00Normal (02/08/15 2:18 AM)[facility] KnpakvvBTXMJDBNBV0315-22-04 07:18:001+ *ABN*(02/08/15 2:18 AM)[facility] OLDOMLMECG3481-62-07 07:18:001+ *ABN*(02/08/15 2:18 AM)[facility]annHEMATOLOGY 2015-02-08 07:18:00* Test Item Value Reference Range Interpretation Comments PTT (test code = PTT) 38.8 s 22.9-35.8 [facility] CirvoxsZVGVRJJYSD4732-37-29 07:18:001.10[facility] HermannHEMATOLOGY 2015-02-08 07:18:00* Test Item Value Reference Range Interpretation Comments PT (test code = PT) 14.3 s 12.0-14.7 [facility] EibssnsOOWWHXZEMJ7296-30-67 07:18:0034.3[facility]annHEMATOLOGY 2015-02-08 07:18:0040.0[facility] VzriqrwOXROHAXVNF1495-43-33 07:18:0013.7[facility] CvswgheTERMTUCJEZ7411-74-29 07:18:008.9[facility] UugebvvDNQZMPUJJI2445-17-20 07:18:00* Test Item Value Reference Range Interpretation Comments MCH (test code = MCH) 36.0 pg 27.0-31.0 [facility] OmexnrwSGTDHVSESJ8781-59-40 07:18:15090.0[facility]annHEMATOLOGY 2015-02-08 07:18:17075Mmpvuomz StwhokkLOLNMHSGUT0452-52-30 07:18:0015.2[facility] GsaqkeoDXQJECMVEM9020-10-35 07:18:003.81[facility] EhwzremLWVTNSUGJU7940-48-83 07:18:007.0[facility] HermannCARDIAC MKRYZDG8595-15-96 07:18:0044[facility] QHQOLIXHWI3764-74-79 07:18:000.0[facility] FpyaiikTBJFKYDTRF0774-19-35 07:18:003.3 [facility] XozqyddGPJXCUWCRV3260-83-57 07:18:000.1[facility]annHEMATOLOGY 2015-02-08 07:18:003.5[facility] CzjelbdJGPOAIAOIY7873-91-88 07:18:000.1[facility] DocnlznNDQLDCIHGX0378-73-81 07:18:0050.0[facility] FwkyaxcRUVCDHPRXV4682-95-02 07:18:0047.0[facility] MlgfxjqTLHYMWHROS9442-81-97 07:18:000.0[facility] PCCRBOZAKX4565-74-52 07:18:001.0[facility] SihlveiVWQYBMYLTI9851-94-05 07:18:002.0 [facility] ZfagqpdZAHUPQOUEF4481-37-72 07:18:00* Test Item Value Reference Range Interpretation Comments Tot Cell Ct (test code = Tot Cell Ct) 100 1 [facility] HezicslJTXUDVYPJR2245-81-13 07:18:00Normal (02/08/15 2:18 AM)[facility] CywydnnXBTPWGFRTT0830-12-53 07:18:001+ *ABN*(02/08/15 2:18 AM)[facility] WBEBFMLNPQ7634-37-31 07:18:001+ *ABN*(02/08/15 2:18 AM)[facility]annHEMATOLOGY 2015-02-08 07:18:00* Test Item Value Reference Range Interpretation Comments PTT (test code = PTT) 38.8 s 22.9-35.8 [facility] EejbkbgQHCDFJNOVY4252-17-91 07:18:001.10[facility]annHEMATOLOGY 2015-02-08 07:18:00* Test Item Value Reference Range Interpretation Comments PT (test code = PT) 14.3 s 12.0-14.7 [facility] PpskiavTYSACPHONI9384-60-26 07:18:0034.3[facility]annHEMATOLOGY 2015-02-08 07:18:0040.0[facility] EcddykjPOFRLARMRY1867-92-44 07:18:0013.7[facility] HjyagduWNCJQDCLGR5686-96-18 07:18:008.9[facility] MdncrbhJPUJPEFVOP3315-23-80 07:18:00* Test Item Value Reference Range Interpretation Comments MCH (test code = MCH) 36.0 pg 27.0-31.0 [facility] FbzovyoSXFXYVHVVQ1234-53-98 07:18:11079.0[facility]annHEMATOLOGY 2015-02-08 07:18:57600Rrzcmnen GasvcglABGAWCBDCC3947-06-26 07:18:0015.2[facility] LcobuchMRIDCARKVF2107-21-60 07:18:003.81[facility] EajwqvpNKLEXELZMY2961-14-56 07:18:007.0[facility] HermannCARDIAC DCZOCOH8637-31-84 22:13:00<0.02[facility]annCARDIAC QCQIRAQ9080-08-04 22:13:0072[facility] HermannCHEM VVKSI0784-08-62 22:13:001.9[facility] HermannCHEM TSQRC4247-70-36 22:13:003.1[facility] KAWVTFUKYB8267-62-37 22:13:000.5[facility] PcprvbiZUAJDOYRFA0726-07-48 22:13:00* Test Item Value Reference Range Interpretation Comments PT (test code = PT) 13.1 s 12.0-14.7 [facility] DclppyiWRRHSSMGJB1412-27-98 22:13:000.99[facility]annHEMATOLOGY 2015-02-07 22:13:00* Test Item Value Reference Range Interpretation Comments PTT (test code = PTT) 30.3 s 22.9-35.8 [facility]annCARDIAC WCHMOGE9944-29-90 22:13:00<0.02[facility]annCARDIAC NDWLEGB9867-24-59 22:13:0072[facility] HermannCHEM ORDZZ1197-45-79 22:13:001.9 [facility] HermannCHEM FIOUY4296-91-80 22:13:003.1[facility]annHEMATOLOGY 2015-02-07 22:13:000.5[facility] OqowyfsAHZFFYXETT0460-34-77 22:13:00* Test Item Value Reference Range Interpretation Comments PT (test code = PT) 13.1 s 12.0-14.7 [facility] QdvwnfiRZZAVIZCXQ1258-55-66 22:13:000.99[facility]annHEMATOLOGY 2015-02-07 22:13:00* Test Item Value Reference Range Interpretation Comments PTT (test code = PTT) 30.3 s 22.9-35.8 [facility] HtziqlzQVWZFW7643-21-70 11:06:0015[facility] UvzlsjvXEDEUO7294-61-65 11:06:74406Mzovjnsg LihixeiZWTVAB2465-05-90 11:06:0033[facility] HermannLIPIDS 2014-07-14 11:06:77404Awoidlqw UafkpdoZRYHII1751-58-97 11:06:0073[facility] OcgcplqCRHMCO0098-88-33 11:06:005.09[facility] AxibouaWQZEIC3358-88-32 11:06:0015 [facility] VffbomlYZNKFJ3939-22-32 11:06:29835Mubqtuil VuaowgnDJLEFG0436-68-44 11:06:0033[facility] RvugonvSUJTZZ8934-16-08 11:06:14739Hpkwnzpa HermannLIPIDS 2014-07-14 11:06:0073[facility] TneyzmrQKKJYR1165-53-14 11:06:005.09[facility] PjqqkevBGKBHDWBRDRE2637-18-29 10:23:009.0[facility] HzpyzqjPTDQPTTZAZYQ3535-98-92 10:23:42511Ejnjjlrz JyrycdySLRFJOUWNMPN3729-36-92 10:23:0012[facility] OTTHWLLFQQFL8957-82-55 10:23:000.7[facility] KzkotunYFDLUPLHAKDV1623-81-36 10:23:0080[facility] XzrjagoKCVHANRZBTSE6956-62-35 10:23:86024Eubkoqop [facility] DGQEVMWBBKDR7724-84-28 10:23:004.0[facility] OiatzdlYNRYYSJQZQZA8090-90-85 10:23:008.0[facility] WjdqoelCCHEXZNVSYNB6319-97-40 10:23:57478Derdhaxq [facility] SRSCKLRLBNCM2880-07-69 10:23:0027[facility] QmtltabWYKBTUYBCX3707-29-76 10:23:00 3.19[facility] EpwkjtyCZYMIYBNKC2233-72-23 10:23:0032.5[facility] HermannHEMATOLOGY 2014-07-14 10:23:007.4[facility] IzcbqhbRRVWXZDZVQ9595-54-69 10:23:0010.9[facility] IgohfgkXNQIYDPOIL5169-74-43 10:23:0033.6[facility] VsayqvtAGNTZKZISL5461-16-02 10:23:98541.7[facility] YyzezvcMHFDJMMINA4687-34-82 10:23:00* Test Item Value Reference Range Interpretation Comments MCH (test code = MCH) 34.1 pg 27.0-31.0 [facility] FvutjgqFXAFKGIVAH3541-15-18 10:23:0013.9[facility] HermannHEMATOLOGY 2014-07-14 10:23:008.6[facility] AlvludvKXDMDVIPFC9924-32-27 10:23:72975Yqdwirne DcvfhypXTWVIBEDZZ6527-22-04 10:23:002.6[facility] XolcfsrLJTOISCIOW5480-87-48 10:23:001.7[facility] RnoltpqDBJKMWHURB7183-07-78 10:23:0055.9[facility] UMNUCWVTJS1960-22-31 10:23:006.5[facility] CpnxdyiSTCDGCILMP4787-60-88 10:23:00 35.3[facility] NoloyocFARBBEHKPR7311-93-14 10:23:004.1[facility] HermannHEMATOLOGY 2014-07-14 10:23:000.6[facility] NcfqcomUOSKOFZRAU6718-77-06 10:23:000.0[facility] ZxlrupaBQGMRTNLXV5179-31-93 10:23:000.5[facility] GrbmtulHSCSAIZVUI2609-27-86 10:23:000.1[facility] CmznezcJXYOVMDQEZOT6739-94-44 10:23:009.0[facility] WBXTCCCROQRE9798-04-40 10:23:05967[place]ozmetak DjyfhxmIXLQQTSHZQKY3908-38-03 10:23:0012[facility] DcvajxtAPBZXXFLJLYA7032-38-83 10:23:000.7[facility] RDFXNIHZGSWF3214-79-60 10:23:0080[facility] CftlzlaAWPCUBZAMEZO2187-21-90 10:23:00 141[facility] PlwdkicPQHNDVFIEVAY9876-79-22 10:23:004.0[facility] LYXQQTGWGRAF0287-08-36 10:23:008.0[facility] VijheolQDAONDMTUPGP0391-87-29 10:23:39275Mdyrjemr BparbegGYLBLTRIWMXB1959-77-60 10:23:0027[facility] GEMSDKFIYD6976-36-10 10:23:003.19[facility] AirbyhwKHGGYLGTJW5420-79-80 10:23:00 32.5[facility] QkshevwKVACGVOJWH0066-17-19 10:23:007.4[facility] HermannHEMATOLOGY 2014-07-14 10:23:0010.9[facility] MjgkqwaGUHJOWSXCK9294-37-74 10:23:0033.6[facility] TldgjqwDGPJVVAQGD6488-19-84 10:23:46089.7[facility] QgsybhgXURVCAMQHA7240-69-91 10:23:00* Test Item Value Reference Range Interpretation Comments MCH (test code = MCH) 34.1 pg 27.0-31.0 [facility] LqutsezGXCZDFZCLF7566-77-25 10:23:0013.9[facility] HermannHEMATOLOGY 2014-07-14 10:23:008.6[facility] NbjhrkzVTNEGVMJEH5570-02-74 10:23:82297Arqitzrr KerebvuYWGQRFKLWJ4874-71-21 10:23:002.6[facility] UrdvufqYEVRUZBHYF2874-68-60 10:23:001.7[facility] PtwvpudAJZAACFDLI1754-59-37 10:23:0055.9[facility] QHKDTCFAAJ7630-94-50 10:23:006.5[facility] MqkwntgNYNTOTHQSE0124-99-48 10:23:00 35.3[facility] ZnjpjcqRVOLCWUKUG7554-16-74 10:23:004.1[facility] HermannHEMATOLOGY 2014-07-14 10:23:000.6[facility] FcyjbdlFBPMUDKFML4916-59-87 10:23:000.0[facility] PpfhbnuRBDXIXUUPB0260-32-99 10:23:000.5[facility] OuhuewdUMYMTMMBZQ4736-98-54 10:23:000.1[facility] HermannCHEM OKBBG7368-52-50 00:33:30312Kckhlvrt HermannCHEM MDGQH7053-62-34 00:33:0011[facility]annCHEM QCLMV2747-41-83 00:33:000.7 [facility]annCHE[facility] UTELE5205-20-99 00:33:25631Huhgsxhf HermannCHEM PANEL 2014-07-14 00:33:003.6[facility]annCHEM HLDZU8791-90-02 00:33:84546Omsjkzst HermannCHEM LEOHG8148-98-66 00:33:008.3[facility]annCHEM HFCSK8885-84-29 00:33:0014.[facility]annCHEM JTATS2430-34-33 00:33:0025[facility]annCHEM WZQZP9443-30-73 00:33:0079[facility]annCHEM BZNGK6167-10-14 00:33:58446 [facility]annCHE[facility] EAKDS1608-66-72 00:33:000.7[facility]annHEMATOLOGY 2014-07-14 00:33:35044Hncvuzzn HfyicolITUMVRNOWX8489-94-95 00:33:00* Test Item Value Reference Range Interpretation Comments PTT (test code = PTT) 54.6 s 22.9-35.8 [facility]annCHEM YYYIG5616-42-56 00:33:73857Xztvaqqx HermannCHEM PANEL 2014-07-14 00:33:0011[facility]annCHEM ZCZDW1695-50-01 00:33:000.7[facility]annCHEM ADXDU5130-29-25 00:33:92604Nayfsxrd HermannCHEM EWKRY7990-85-05 00:33:003.6[facility]annCHEM SFKRU7136-63-42 00:33:21562Ussyfjbp HermannCHEM CRIHY4471-33-76 00:33:008.3[facility]annCHEM QTORD2177-37-37 00:33:0014.6 [facility]annCHEM PETBK7545-34-07 00:33:0025[facility]annCHEM PANEL 2014-07-14 00:33:0079[facility]annCHEM TXNUK1857-68-13 00:33:35571Jjtrvvvj HermannCHEM SZZCH4241-33-49 00:33:000.7[facility] RbdtjxaRCZHZXOLAF4782-57-77 00:33:03210Ijfthwct VhthedtVXVORUBJOD5429-17-95 00:33:00* Test Item Value Reference Range Interpretation Comments PTT (test code = PTT) 54.6 s 22.9-35.8 [facility] JmgujcvAHFLOCITQTZG3927-38-36 11:46:0012.7[facility] HermannELECTROLYTES 2014-07-13 11:46:84968Abplqlng XebvoboJMAAAFMXPZPE9256-72-91 11:46:009.0[facility] DhppxjrKXBSLHTXPPDN2791-45-29 11:46:0028[facility] QkljyzfOLPQIYHYLSBL6338-64-35 11:46:0089[facility] XswrczsKOQFFYCJIZLZ6135-17-82 11:46:0013[facility] DJBZVALAGNUH6787-68-98 11:46:30629Dppngkff PtfxqolMEVRLZJFQKMM0242-85-98 11:46:003.7[facility] ZgimtfdDNUOKKZEAK6545-79-35 11:46:007.1[facility] KKTIAFJQME0599-92-60 11:46:008.6[facility] VhrpchkAGEEOLOOWT8611-89-67 11:46:00 14.1[facility] SqursprWPHIMQKUCD3589-71-73 11:46:36614Zndmwzyq HermannHEMATOLOGY 2014-07-13 11:46:0013.1[facility] JqdspjlXTUYUTJQQO5280-74-38 11:46:0034.3[facility] TjmfvhpUSTMFVJPON4785-63-07 11:46:0038.1[facility] HbukvoxCJEMEUMTLC5415-20-85 11:46:00* Test Item Value Reference Range Interpretation Comments MCH (test code = MCH) 34.7 pg 27.0-31.0 [facility] XqmunmwUENNHVYGGA5490-97-03 11:46:003.77[facility] HermannHEMATOLOGY 2014-07-13 11:46:42260.2[facility] FwtlftmNIPCMZJPIK7287-61-31 11:46:000.0[facility] YmepovtMKBIPMWWQE7651-60-74 11:46:004.0[facility] OqvxhhtXIQARKYUES5024-93-52 11:46:000.4[facility] HihijqhBSHTYQUSPG0381-77-70 11:46:000.1[facility] JKQUVAHOOH4526-72-30 11:46:002.6[facility] CacukuvQMPJHEEIRQ0490-69-62 11:46:000.4 [facility] UzfttzkJNSDRCMTKZ3654-39-02 11:46:005.3[facility] HermannHEMATOLOGY 2014-07-13 11:46:001.2[facility] PzuxseoFNXDZKZHUB0014-76-63 11:46:0056.7[facility] DnmndncPFURTFWKWL4680-76-44 11:46:0036.4[facility] GhzbeylBWUNXXAXRRMY8409-77-68 11:46:0012.7[facility] MmorixjCXCOHTMWPQMP6188-71-90 11:46:50566Ilcqqzmq [facility] CDEIUJBNJMEE1366-42-98 11:46:009.0[facility] SpojhcwMBELNNSJUZUZ5126-52-77 11:46:0028[facility] GodpgamXKUFEUXIJBXT9394-42-63 11:46:0089[facility] WTBDXUGRUJOL2599-16-07 11:46:0013[facility] MkhpbbqYFKSMNTCQFHH8292-11-89 11:46:00 143[facility] BqqtvhyLUYQLHBDSZZV4983-85-94 11:46:003.7[facility] HermannHEMATOLOGY 2014-07-13 11:46:007.1[facility] VnzgodtFWPBERYBWA4463-60-99 11:46:008.6[facility] RhyclopBMNETVTKGL0117-04-94 11:46:0014.1[facility] UidsvwtACHHSPZXBH7824-65-19 11:46:54777Kgeqdrph JlfhuyjTVCCCRVWXF0771-56-97 11:46:0013.1[facility] UWGYLYXDSL6396-96-95 11:46:0034.3[facility] OgtnsteSMLINQKQRU0287-03-95 11:46:00 38.1[facility] OdzzhotOHQAQOFROW9267-64-18 11:46:00* Test Item Value Reference Range Interpretation Comments MCH (test code = MCH) 34.7 pg 27.0-31.0 [facility] CosyabkFOQNAOGLWA7313-73-43 11:46:003.77[facility] HermannHEMATOLOGY 2014-07-13 11:46:21355.2[facility] IoewxjtACWAHKZEFL0805-96-26 11:46:000.0[facility] ExbzgjfEXMUELFRDD8343-96-72 11:46:004.0[facility] AkgtoisIGYINRFCWJ2497-48-42 11:46:000.4[facility] SgiqikvNMUYKRWWBA4103-20-24 11:46:000.1[facility] QOXQDLRUNQ7920-48-28 11:46:002.6[facility] AnszbnfYEYSZQZTIJ1252-44-88 11:46:000.4 [facility] HqbhmxhNTYBNVPPZP7502-25-46 11:46:005.3[facility]annHEMATOLOGY 2014-07-13 11:46:001.2[facility] AkpyswsVKAROYCJJL2623-91-44 11:46:0056.7[facility] TtpgjnsAGNHTYUFQI5884-95-46 11:46:0036.4[facility] HermannCARDIAC ENZYMES 2014-07-12 22:05:007.3[facility] HermannCARDIAC SHEFOPA0854-15-34 22:05:68373 [facility]annCARDIAC TBGCPGX1859-19-80 22:05:008.79[facility] HermannCARDIAC OZFCFUF2487-01-81 22:05:007.3[facility] HermannCARDIAC BJYJSTK4438-07-29 22:05:00 292[facility]annCARDIAC DPBOTHL2233-95-72 22:05:008.79[facility] LHOEYTVIYT8586-51-50 21:42:000.5[facility] PzjsyogWAUYASYRGU5582-42-82 21:42:003.3 [facility] KvnrwlnKLWDTAHCKQ0332-66-33 21:42:000.1[facility] HermannHEMATOLOGY 2014-07-12 21:42:004.5[facility] TgulwkpEYMLPWFMYK7307-11-56 21:42:000.8[facility] QcxadvyPZCNGWLVHS9537-26-03 21:42:0039.2[facility] AeclhaxYKDZZDEGKN5710-16-62 21:42:000.6[facility] KmlgjckWDROWELHFH7062-10-47 21:42:006.3[facility] HXZTFORIPK9994-01-59 21:42:000.1[facility] WencaipDUGLUFWTUR4412-39-43 21:42:00 53.1[facility] YsvjkaaJYGCPJSJDL3236-20-68 21:42:0013.5[facility] HermannHEMATOLOGY 2014-07-12 21:42:008.4[facility] QpxwcorXDULYFEZJS6087-58-62 21:42:0035.4[facility] NgcwoteLJQMRBOTON4709-04-58 21:42:00* Test Item Value Reference Range Interpretation Comments MCH (test code = MCH) 35.6 pg 27.0-31.0 [facility] RcqasrlMTGIYYHBFP6115-34-54 21:42:0034.2[facility]annHEMATOLOGY 2014-07-12 21:42:008.5[facility] LxqlmwdUDVGDHRTHR3113-10-05 21:42:25759.8[facility] GcjcngbICQFPHXKFN4547-65-39 21:42:0012.1[facility] GbbwoacNKEFWNDBKG5518-78-95 21:42:003.39[facility] MayrsveJDKAZGESSA3025-98-92 21:42:000.5[facility] SHEYMZQGIP6407-11-80 21:42:003.3[facility] OwnfwuwABWPOGINHN2554-19-86 21:42:000.1 [facility] OvrxoztPGQHLXENWO0212-88-52 21:42:004.5[facility] HermannHEMATOLOGY 2014-07-12 21:42:000.8[facility] AqdphtlBLRSZXOVNX5281-38-05 21:42:0039.2[facility] HafrkheNYMGIXVKKK7126-64-78 21:42:000.6[facility] MrvbeqsUVTQBJQCRN7348-45-00 21:42:006.3[facility] JbiowqyWFTNFOZKJA1970-45-83 21:42:000.1[facility] JJQRDJNRJN3726-85-89 21:42:0053.1[facility] TamvqloOVQWZNPFLK5584-80-15 21:42:00 13.5[facility] ImcruysPDZGBZPOFV9358-24-80 21:42:008.4[facility] HermannHEMATOLOGY 2014-07-12 21:42:0035.4[facility] CcwshpnWQXONNNOPY4755-81-41 21:42:00* Test Item Value Reference Range Interpretation Comments MCH (test code = MCH) 35.6 pg 27.0-31.0 [facility] VefysofQZUWEHEKSL8134-54-56 21:42:0034.2[facility]annHEMATOLOGY 2014-07-12 21:42:008.5[facility] IughwvdSSGUYMCWXH8303-71-83 21:42:69601.8[facility] DkughraDWHBRZCNDC4432-87-47 21:42:0012.1[facility] GojfzfsTCIEFYCSZJ0413-58-23 21:42:003.39[facility]DR[facility] UASDYR6352-90-74 15:07:00Positive *ABN*(07/12/14 9:07 AM)[facility] QNQMIU7228-29-42 15:07:00Negative *NA*(07/12/14 9:07 AM)[facility] ESIWDL4042-78-61 15:07:00Negative *NA*(07/12/14 9:07 AM) [facility] IVAKXZ9432-24-11 15:07:00Negative *NA*(07/12/14 9:07 AM) [facility] JTYCCN4224-50-40 15:07:00See Note 10(07/12/14 9:07 AM) [facility] MZREOY2030-32-40 15:07:00Negative *NA*(07/12/14 9:07 AM) [facility] VOZYDP8106-05-01 15:07:00Negative *NA*(07/12/14 9:07 AM) [facility] LXSMKY1155-14-29 15:07:00Negative *NA*(07/12/14 9:07 AM) [facility] KMZZDO8696-82-26 15:07:00Negative *NA*(07/12/14 9:07 AM) [facility] HFUTJE5772-81-66 15:07:00Negative *NA*(07/12/14 9:07 AM) [facility] IMDTZS2224-56-00 15:07:00Positive *ABN*(07/12/14 9:07 AM) [facility] FXHKJO4968-36-00 15:07:00Negative *NA*(07/12/14 9:07 AM) [facility] SYSOTQ1625-20-33 15:07:00Negative *NA*(07/12/14 9:07 AM) [facility] QEZFAE3294-22-90 15:07:00Negative *NA*(07/12/14 9:07 AM) [facility] YHNOHS5809-64-80 15:07:00See Note 10(07/12/14 9:07 AM) [facility] CGNCAZ2040-89-38 15:07:00Negative *NA*(07/12/14 9:07 AM) [facility] YIWXOS8185-11-35 15:07:00Negative *NA*(07/12/14 9:07 AM) [facility] VFSOJH4318-95-22 15:07:00Negative *NA*(07/12/14 9:07 AM) [facility] QBUNZR7063-10-09 15:07:00Negative *NA*(07/12/14 9:07 AM) [facility] XNPUVB7773-91-44 15:07:00Negative *NA*(07/12/14 9:07 AM) [facility] EjjlpgqLXBVBWSGAJ7988-08-94 12:48:001.12[facility]annHEMATOLOGY 2014-07-12 12:48:00* Test Item Value Reference Range Interpretation Comments PT (test code = PT) 14.5 s 12.0-14.7 [facility] LvgemvaRSCJKMBFEW4950-23-30 12:48:001.12[facility]annHEMATOLOGY 2014-07-12 12:48:00* Test Item Value Reference Range Interpretation Comments PT (test code = PT) 14.5 s 12.0-14.7 [facility]annC[facility] EJBWRLU0449-79-16 09:57:0017.00[facility]annC[facility] TVXFBEG0876-14-01 09:57:75717Uccpxoml HermannCARDIAC STTJSJL7888-54-79 09:57:00 3.8[facility]annC[facility] DBHXZLC5504-74-89 09:57:0015.4[facility] OSDDGJQXDP5128-40-67 09:57:00Negative (07/12/14 3:57 AM)[facility] VZBFSXF0861-17-05 09:57:0017.00[facility]annC[facility] ZEJJWTK7623-51-60 09:57:47346Ugvxijbq HermannCARDIAC QYNPJBM6217-38-95 09:57:003.8[facility] CARDIAC ISEFHMI6436-53-09 09:57:0015.4[facility] KrdmpvoJADKBXPHRD6452-63-41 09:57:00Negative (07/12/14 3:57 AM)[facility] JsdtahgREGLWVQKFO0598-98-92 06:28:00 See Note 13, 14(07/12/14 12:28 AM)[facility] EggjvpjOIPPFSCCXB5769-23-45 06:28:00 See Note 13, 14(07/12/14 12:28 AM)[facility]annCARDI[facility] XXISONS5681-24-76 03:37:0016.50[facility]annC[facility] OFISWTD1809-40-96 03:37:0022.8[facility]annCHEM UBBXP9446-17-28 03:37:0055[facility]annC[facility] SUQNCXK5047-70-35 03:37:0016.50[facility]annC[facility] IUVEEFK3616-56-62 03:37:0022.8[facility]annCHEM TNUMH3664-16-57 03:37:0055[facility]DR[facility] SBCUJV5482-70-24 15:47:00See Note 3(07/11/14 9:47 AM)[facility] SDZWNL8949-34-40 15:47:00Negative *NA*(07/11/14 9:47 AM)[facility] UPTRJY8167-62-10 15:47:00Negative *NA*(07/11/14 9:47 AM)[facility] SZIQGH4369-40-29 15:47:00Negative *NA*(07/11/14 9:47 AM)[facility] ZPHOSR8598-91-16 15:47:00Negative *NA*(07/11/14 9:47 AM)[facility] ICAGQU5889-89-69 15:47:00Positive *ABN*(07/11/14 9:47 AM)[facility] TRKANB6553-52-74 15:47:00Negative *NA*(07/11/14 9:47 AM)[facility] IFLWNS4269-45-98 15:47:00Negative *NA*(07/11/14 9:47 AM)[facility] CFSPE7330-33-37 15:47:00See Note (07/11/14 9:47 AM)[facility] VDNPQ7185-16-29 15:47:00Trace *ABN*(07/11/14 9:47 AM)[facility] YMJQL6293-67-97 15:47:00Negative *NA*(07/11/14 9:47 AM)[facility] JJTMA3030-76-06 15:47:00Negative *NA*(07/11/14 9:47 AM)[facility] QCTOI0248-65-68 15:47:00Negative (07/11/14 9:47 AM)[facility] BHHVD6168-10-86 15:47:00* Test Item Value Reference Range Interpretation Comments UA pH (test code = UA pH) 6.0 1 5.0-8.0 [facility] MZMSE7837-21-00 15:47:00Negative (07/11/14 9:47 AM) [facility] NERYP9818-36-51 15:47:00* Test Item Value Reference Range Interpretation Comments UA Spec Grav (test code = UA Spec Grav) 1.015 1 [facility] KKFPC8669-58-39 15:47:00Yellow *NA*(07/11/14 9:47 AM) [facility] VZDYF3545-66-71 15:47:00Clear (07/11/14 9:47 AM) [facility] AIEGT1422-87-00 15:47:00Negative (07/11/14 9:47 AM) [facility] RPHUV9873-02-98 15:47:00Negative (07/11/14 9:47 AM) [facility] JJEGL5860-97-25 15:47:000.2[facility]annDR[facility] SCREEN 2014-07-11 15:47:00See Note 3(07/11/14 9:47 AM)[facility] SCREEN 2014-07-11 15:47:00Negative *NA*(07/11/14 9:47 AM)[facility] SCREEN 2014-07-11 15:47:00Negative *NA*(07/11/14 9:47 AM)[facility] SCREEN 2014-07-11 15:47:00Negative *NA*(07/11/14 9:47 AM)[facility]DR[facility] SCREEN 2014-07-11 15:47:00Negative *NA*(07/11/14 9:47 AM)[facility] SCREEN 2014-07-11 15:47:00Positive *ABN*(07/11/14 9:47 AM)[facility]DR[facility] SCREEN 2014-07-11 15:47:00Negative *NA*(07/11/14 9:47 AM)[facility]DR[facility] SCREEN 2014-07-11 15:47:00Negative *NA*(07/11/14 9:47 AM)[facility] STOOL 2014-07-11 15:47:00See Note (07/11/14 9:47 AM)[facility] STOOL 2014-07-11 15:47:00Trace *ABN*(07/11/14 9:47 AM)[facility] STOOL 2014-07-11 15:47:00Negative *NA*(07/11/14 9:47 AM)[facility] STOOL 2014-07-11 15:47:00Negative *NA*(07/11/14 9:47 AM)[facility] STOOL 2014-07-11 15:47:00Negative (07/11/14 9:47 AM)[facility] STOOL 2014-07-11 15:47:00* Test Item Value Reference Range Interpretation Comments UA pH (test code = UA pH) 6.0 1 5.0-8.0 [facility] BUCIR3139-18-68 15:47:00Negative (07/11/14 9:47 AM) [facility] OJKLC6116-26-04 15:47:00* Test Item Value Reference Range Interpretation Comments UA Spec Grav (test code = UA Spec Grav) 1.015 1 [facility] WQHRN3731-31-99 15:47:00Yellow *NA*(07/11/14 9:47 AM) [facility] CHJUM7488-13-76 15:47:00Clear (07/11/14 9:47 AM) [facility] RWQEM7328-25-89 15:47:00Negative (07/11/14 9:47 AM) [facility] JLTAL0456-05-81 15:47:00Negative (1/17/15 9:47 AM) [facility] UVHCD7181-49-53 15:47:000.2[facility]annCARDIAC RYHIKYO3986-64-23 14:44:001.3[facility]annC[facility]IAC MKKIYZC0801-82-12 14:44:00 62[facility]annCARDIAC ZEOWLUD9164-83-59 14:44:000.8[facility]annCARDIAC QNQRZRQ6216-76-18 14:44:000.06[facility]annCHEM ZUCTU5815-01-08 14:44:99633 [facility]annCHE[facility] GOUOG5518-37-95 14:44:007.8[facility]annCHEM PANEL 2014-07-11 14:44:003.7[facility]annCHEM HRRKU1581-14-74 14:44:008.5[facility]annCHEM FFKMR9734-73-56 14:44:005.2[facility]annCHEM JAYPL0588-61-06 14:44:0016[facility]annCHE[facility] HBZCI8739-06-52 14:44:000.9[facility]annCHE[facility] QPHLP1279-55-60 14:44:000.3[facility]annCHEM MBYKL4634-51-04 14:44:0012 [facility]annCHE[facility] MGGPH6379-23-73 14:44:004.1[facility]annCHEM PANEL 2014-07-11 14:44:006[facility]annCHE[facility] XFRNO9377-17-18 14:44:0033[facility]annCHEM GRPWA6492-90-82 14:44:0031[facility]annCHEM PUYYL9113-74-49 14:44:70585Ahqdnucm HermannCHEM GQTCR7399-33-92 14:44:48757Dvapjrgh HermannCHEM TKTFN7351-07-50 14:44:0013[facility]annCHEM PLSND4229-81-48 14:44:000.8 [facility]annCHE[facility] YTQKT1556-68-69 14:44:48017Kudaxmec HermannCHEM PANEL 2014-07-11 14:44:003.2[facility] TxvriohRXQDHAHZPS4207-61-76 14:44:001.0[facility] RsmeklqKQCSBEWLTK6756-39-23 14:44:000.2[facility] FbjonuuDGISQMUFCC9757-53-87 14:44:001.4[facility] UyrviuzKRRRMDGDLF9982-82-46 14:44:006.3[facility] VCTRYHCMIT3362-14-79 14:44:000.1[facility] VybztzxRMSVTUQIVB4626-66-78 14:44:000.1 [facility] BrdmrtgVMBYFQEBOL3643-74-31 14:44:000.0[facility]annHEMATOLOGY 2014-07-11 14:44:002.4[facility] OzetfewKWHMSHCPRV4392-90-61 14:44:0017.8[facility] NwdnxzzJUGXRYEHNP4642-02-57 14:44:0078.7[facility] WinuwenZKIHSJXHGI6372-14-35 14:44:003.86[facility] ZahkxojGFMMTJGNNU0577-70-13 14:44:0039.4[facility] UEWFXDIHEL9759-76-54 14:44:18030.0[facility] PigijmzNSBXADMOZX0110-32-79 14:44:00 * Test Item Value Reference Range Interpretation Comments MCH (test code = MCH) 35.3 pg 27.0-31.0 [facility] EzhjyvxDAYWOWYZKH0946-64-46 14:44:0034.6[facility]annHEMATOLOGY 2014-07-11 14:44:0013.6[facility] JcezbliEONQBUADOF8517-89-61 14:44:008.0[facility] AxzytnsFDWOIGYWXV5981-61-68 14:44:0013.9[facility] DrreyxeALTPYWDZDU3227-13-74 14:44:008.3[facility] GftkypuLDHPZCOPQH8080-68-64 14:44:34015[place]urn [facility] CARDIAC MAIIJPK9615-08-99 14:44:001.3[facility]annCARDIAC ATTTQCD0469-67-41 14:44:0062[facility]annCARDIAC WEHOAXD9198-90-54 14:44:000.8[facility] CARDIAC KLKLSMJ0707-78-23 14:44:000.06[facility] HermannCHEM YMFTV2378-72-08 14:44:44166Pvrfnyqp HermannCHEM MOBBP6892-45-96 14:44:007.8[facility] HermannCHEM DKLKL2604-65-83 14:44:003.7[facility]annCHEM QSHFU8404-27-43 14:44:008.5 [facility]annCHEM YDVRM4072-77-96 14:44:005.2[facility] HermannCHEM PANEL 2014-07-11 14:44:0016[facility]annCHEM VZPAN8822-82-08 14:44:000.9[facility] HermannCHEM EECVB6788-45-69 14:44:000.3[facility]annCHEM RAUWX9629-20-66 14:44:0012[facility]annCHEM KXBDR2262-97-26 14:44:004.1[facility]annCHEM EZDYD3320-29-50 14:44:006[facility]annCHEM BKVGE5973-19-72 14:44:0033[facility]annCHEM LXYDT2366-69-15 14:44:0031[facility]annCHEM GEZNI5078-47-69 14:44:03531Mddylwjh HermannCHEM BZMTO1959-11-53 14:44:45376Ibenfqsk HermannCHEM VYHLW3407-95-78 14:44:0013[facility]annCHEM COHUE6942-26-89 14:44:000.8 [facility]annCHEM JOJPY5044-03-09 14:44:43795Ttsdxily HermannCHEM PANEL 2014-07-11 14:44:003.2[facility] KkygqzmNQENSVDFHS0611-24-64 14:44:001.0[facility] NfxfsecSHXMGUOEOV7492-05-55 14:44:000.2[facility] QgplzylGXDNRYHUGD8374-60-05 14:44:001.4[facility] BlnlartDERXRRIJFP7714-10-44 14:44:006.3[facility] NWNDBWZOWS9524-18-18 14:44:000.1[facility] FpkncxuKFCLPPUBZK7507-47-04 14:44:000.1 [facility] WlvmqmaKJKTMMXMYO6558-20-09 14:44:000.0[facility] HermannHEMATOLOGY 2014-07-11 14:44:002.4[facility] FmjevmcVBCRAJQTVM9663-58-61 14:44:0017.8[facility] VabhqwcFDFGBLAJNI3973-43-46 14:44:0078.7[facility] FwkymcrIXIOUOUFAN6610-73-80 14:44:003.86[facility] GoowqgsSUQZESRKQZ0627-72-14 14:44:0039.4[facility] XAEGLGHXTA8102-88-50 14:44:92343.0[facility] SaddaiwKGBXRVMIRC8127-47-92 14:44:00 * Test Item Value Reference Range Interpretation Comments MCH (test code = MCH) 35.3 pg 27.0-31.0 [facility] WslbnqnFMXAARDFBI4957-16-48 14:44:0034.6[facility]annHEMATOLOGY 2014-07-11 14:44:0013.6[facility] HaifiiqQNUTOJYNGX8382-28-47 14:44:008.0[facility] GeeirfmPMPRSIWEYM2636-23-32 14:44:0013.9[facility] EnnwxzsBODYMRMPHQ3491-98-81 14:44:008.3[facility] BbgrfeoIUEBZZUCGV6994-72-87 14:44:90358Mcrwkrci [facility] CARDIAC VLGEMMD6558-70-19 18:48:000.07[facility]annCARDIAC MKGYETC5938-50-69 18:48:0066[facility]annCARDIAC SJMBZTJ3538-22-13 18:48:000.07[facility] CARDIAC AELHLRV6504-90-17 18:48:0066[facility]annDR[facility] NCKKNL4391-57-85 16:26:00Negative *NA*(07/01/14 10:26 AM)[facility]annDR[facility] XUGNZP3889-19-80 16:26:00Negative *NA*(07/01/14 10:26 AM)[facility]annDR[facility] MAVFDO9418-19-95 16:26:00Negative *NA*(07/01/14 10:26 AM)[facility]DR[facility] NCRAQM5256-77-26 16:26:00Negative *NA*(07/01/14 10:26 AM)[facility]annDR[facility] UVQMGN8754-62-40 16:26:00Positive *ABN*(07/01/14 10:26 AM)[facility]annDR[facility] SZMIMJ5531-46-99 16:26:00Negative *NA*(07/01/14 10:26 AM)[facility]annDR[facility] ORZCQE2685-28-80 16:26:00Negative *NA*(07/01/14 10:26 AM)[facility]annDR[facility] WSRNXB4064-04-03 16:26:00See Note 3(07/01/14 10:26 AM)[facility]annDR[facility] VARPZC0424-63-52 16:26:00Negative *NA*(07/01/14 10:26 AM)[facility]annDR[facility] MBDDYY2278-00-84 16:26:00Negative *NA*(07/01/14 10:26 AM)[facility]DR[facility] DNKFWQ8078-69-65 16:26:00Negative *NA*(07/01/14 10:26 AM)[facility]DR[facility] BSRQXE6401-90-49 16:26:00Negative *NA*(07/01/14 10:26 AM)[facility]annDR[facility] ASHDKR1302-52-50 16:26:00Positive *ABN*(07/01/14 10:26 AM)[facility]annDR[facility] TOUHOH1579-53-70 16:26:00Negative *NA*(07/01/14 10:26 AM)[facility]annDR[facility] GGSEKC4764-72-12 16:26:00Negative *NA*(07/01/14 10:26 AM)[facility]DR[facility] SNJIJE2187-07-46 16:26:00See Note 3(07/01/14 10:26 AM)[facility]annCARDIAC TIDSMTV9237-13-52 11:47:000.10[facility]annCARDIAC GPBDEXQ5787-92-81 11:47:00<0.5[facility]annCARDIAC DXGVQJK6066-09-50 11:47:0062[facility]annCARDIAC ENZYMES 2014-07-01 11:47:00<0.8[facility]annCHEM YIAPR5421-88-35 11:47:52271Mcekpzcn HermannCHEM TMVMV9301-70-85 11:47:004.4[facility]annCHEM SJHHT7557-83-33 11:47:0012[facility]annCHEM AOLXX7944-61-37 11:47:0011.3[facility]annCHEM TTZCG7320-26-36 11:47:000.8[facility]annCHEM ATHNS6343-91-79 11:47:0035 [facility]annCHE[facility] HCLLN2513-69-52 11:47:0014[facility]annCHEM PANEL 2014-07-01 11:47:000.3[facility]annCHEM JOKAO8772-47-19 11:47:0015[facility]annCHEM ZFUXL0178-43-61 11:47:003.3[facility]annCHEM SHDTW1534-90-41 11:47:31526Zenxsqdh HermannCHEM ETAAM7092-35-69 11:47:0010[facility]annCHEM MAFYG3408-97-23 11:47:000.8[facility]annCHEM NLORW6109-81-64 11:47:03509 [facility]annCHE[facility] TZDIV6873-36-02 11:47:007.7[facility]annCHEM PANEL 2014-07-01 11:47:003.3[facility]annCHEM BTZND4310-97-54 11:47:85261Gduiyemf HermannCHEM AKDBF9720-45-51 11:47:0026[facility]annCHEM BVAOY8789-32-44 11:47:008.5[facility] UoyibxfLBQQRBVXXK4873-54-79 11:47:008.4[facility] RUWCSMYGWZ0720-88-82 11:47:87463Qzebzfdw MqegxdjTHHTHYFSAE4102-93-42 11:47:00 36.5[facility] WoheztfRQKVPRZOAO0184-18-82 11:47:005.9[facility]annHEMATOLOGY 2014-07-01 11:47:003.63[facility] VihyeppIXOURFASYS8481-14-62 11:47:0012.7[facility] PelxwvaBFTEQAHKUS5546-29-71 11:47:0034.8[facility] YujahneBIDZUQBOXF7462-09-67 11:47:0013.6[facility] GwuoqozSZEYIIADVR4806-00-30 11:47:76769.5[facility] PFDEBVSRWJ0509-40-71 11:47:00* Test Item Value Reference Range Interpretation Comments MCH (test code = MCH) 35.0 pg 27.0-31.0 [facility] LwituavUDIMEGSQMZ2819-08-83 11:47:000.1[facility]annHEMATOLOGY 2014-07-01 11:47:000.0[facility] GmryggpGBSEOJSQNH2640-65-93 11:47:001.0[facility] AyjfkbyPMNRVAJTHL2739-38-11 11:47:005.7[facility] PfuidatAQSEYTLYIT2002-86-88 11:47:0031.5[facility] GqtlrluKNOLXZJTJH9331-07-63 11:47:0061.7[facility] ZDGKFPWQVD4895-94-97 11:47:001.8[facility] DezpyxlMBREPHXRMT0734-77-35 11:47:000.3 [facility] ElkxlgrKTYQLDNKVE0745-76-62 11:47:000.1[facility]annHEMATOLOGY 2014-07-01 11:47:003.6[facility]annCARDIAC JFHKCPT2527-52-30 11:47:000.10 [facility]annCARDIAC CKATVLA6872-87-45 11:47:00<0.5[facility]annCARDIAC JMTPWFZ1612-94-21 11:47:0062[facility]annCARDIAC VUXSEAX1431-33-48 11:47:00< 0.8[facility] HermannCHEM FRBZI1376-35-13 11:47:79725Osknkzkq HermannCHEM PANEL 2014-07-01 11:47:004.4[facility] HermannCHEM EPMDB9951-13-18 11:47:0012[facility]annCHEM FHRPP9358-10-55 11:47:0011.3[facility]annCHEM UFXFC1889-17-10 11:47:000.8[facility]annCHEM DYEDI2947-96-70 11:47:0035[facility]annCHEM WJHKX6272-98-99 11:47:0014[facility]annCHEM ZQEWS4111-18-55 11:47:000.3 [facility]annCHEM IXUZW1542-30-27 11:47:0015[facility]annCHEM PANEL 2014-07-01 11:47:003.3[facility] HermannCHEM DBGRJ5051-48-15 11:47:77361Qdflgkie HermannCHEM IBWDS3410-86-16 11:47:0010[facility]annCHEM SSCTP6598-03-88 11:47:000.8[facility] HermannCHEM OOQWW1953-32-44 11:47:41017Gwfgtpua HermannCHEM DTPVQ8874-74-18 11:47:007.7[facility]annCHEM BYNPV9961-96-81 11:47:003.3 [facility]annCHEM OZXOL4776-31-13 11:47:13829Uybzopso HermannCHEM PANEL 2014-07-01 11:47:0026[facility] HermannCHEM CKVVR1064-18-43 11:47:008.5[facility] AsqxihfNCSDSNNZFF1968-31-63 11:47:008.4[facility] WwqutyfPYSUHLFYWD1444-98-48 11:47:90613Svchndlg XlbgbcvDESBYBKUVX5247-32-27 11:47:0036.5[facility] XBNMKOEYEN5658-91-92 11:47:005.9[facility] LsdyftmNKGYZZRHEQ4401-54-45 11:47:00 3.63[facility] PmfxrtfRDZZVWTNGW9893-71-20 11:47:0012.7[facility] HermannHEMATOLOGY 2014-07-01 11:47:0034.8[facility] CsyawvuORQYTPUZOV1670-08-08 11:47:0013.6[facility] RvyqzztSGKKJAPKAJ2306-46-28 11:47:48602.5[facility] JshqroiVBHRESCYDL5761-77-79 11:47:00* Test Item Value Reference Range Interpretation Comments MCH (test code = MCH) 35.0 pg 27.0-31.0 [facility] KwsiiuvQAGISPGMLJ8356-90-29 11:47:000.1[facility]annHEMATOLOGY 2014-07-01 11:47:000.0[facility] UkewpewLUYAHBTXKH7670-48-16 11:47:001.0[facility] KvipctcZRGCAAVVYL3973-59-25 11:47:005.7[facility] CiakwbfRUWZXHDUKW5097-56-68 11:47:0031.5[facility] OfpiygrUCSYNICNUE7279-62-38 11:47:0061.7[facility] HNPCCJZMYQ1953-59-05 11:47:001.8[facility] YfutvaaDLEXZJXTRW6473-40-24 11:47:000.3 [facility] TktdilxEPHRDNFBOT5588-62-99 11:47:000.1[facility] HermannHEMATOLOGY 2014-07-01 11:47:003.6[facility] HermannCHEM ZBBJZ8807-79-47 11:20:501.8[facility] HermannCHEM ANPJO5541-13-19 11:20:501.8[facility]annCARDIAC SJKAAEU1862-96-80 11:00:00<0.8[facility]annCARDIAC FFVOABT5052-91-58 11:00:000.02[facility]annCARDIAC XRBDEVS7441-67-13 11:00:00<0.5[facility]annCARDIAC ENZYMES 2014-06-13 11:00:0062[facility] HermannCHEM JHJAX8154-31-21 11:00:60028Zwrkvenu HermannCHEM YOLZX7964-66-98 11:00:004.1[facility] HermannCHEM UAKPZ5342-25-99 11:00:0095[facility]annCHEM YBOTR0184-51-05 11:00:003.7[facility] HermannCHEM UIVXE4875-29-46 11:00:93374Xkbimfii HermannCHEM ONWGZ0656-33-62 11:00:24988 [facility]annCHEM FFBYF6095-85-27 11:00:008.3[facility] HermannCHEM PANEL 2014-06-13 11:00:0013[facility]annCHEM LDSOD7520-95-91 11:00:000.7[facility]annCHEM WXPGH8257-24-01 11:00:007.3[facility]annCHEM CGVNT3090-08-79 11:00:003.2[facility]annCHE[facility] BEKZJ5822-98-71 11:00:000.3[facility]annCHE[facility] YFOJB5189-76-00 11:00:0032[facility]annCHE[facility] RGAJT2413-59-43 11:00:0019 [facility]annCHE[facility] OLIGL8354-57-31 11:00:008[facility]annCHEM PANEL 2014-06-13 11:00:009.7[facility]annCHE[facility] PNSEJ6909-22-13 11:00:000.8[facility]annCHEM ZWWML9890-55-06 11:00:0010[facility]annCHEM YTNUR0998-48-84 11:00:0025[facility] AeardpjSVOFZPHHRH5447-86-37 11:00:002.8[facility] KTSWONZFDI3690-04-78 11:00:005.1[facility] CzlwnkkHTASMORNIY5238-00-41 11:00:000.4 [facility] BqfklumHMHCYVYHHJ2433-28-00 11:00:003.6[facility]annHEMATOLOGY 2014-06-13 11:00:00Normal (06/13/14 5:00 AM)[facility] BfdxdkgXSGWTMVACU2196-45-20 11:00:00Normal (06/13/14 5:00 AM)[facility] QrafcqdVZIDWOSEZW5576-59-79 11:00:00 54.2[facility] EkjlcrtYWATAZAWNT3845-10-33 11:00:0037.5[facility]annHEMATOLOGY 2014-06-13 11:00:000.0[facility] QhmrrpzLLNDKODHJB9970-38-68 11:00:000.3[facility] QpgkyntCLPKAFKZVG6561-04-18 11:00:002.5[facility] BbenmyjEQGIXZBRTM6966-32-96 11:00:000.2[facility] VuxbaawPDIVUMAOFD7264-65-59 11:00:001+ *ABN*(06/13/14 5:00 AM)[facility] FnpcibfLHNEIXYWMM1746-88-21 11:00:000.38[facility]annHEMATOLOGY 2014-06-13 11:00:006.6[facility] RvtkvtjQHBYQXPIQN5017-31-00 11:00:003.38[facility] ZqpkyriIYFETHBZST9151-38-29 11:00:0011.6[facility] QjogwbkFCFZPWWKZA2001-48-99 11:00:0035.0[facility] GnwpissXUNJQQXMOK2764-29-25 11:00:05763Mrmnhhis Zebulon LIIEQEVFOY5973-23-88 11:00:008.2[facility] FdvrfqfXNHJQBTWGK1785-36-20 11:00:00 103.6[facility] SrqwjkyQFPUHSZZYU8360-15-93 11:00:00* Test Item Value Reference Range Interpretation Comments MCH (test code = MCH) 34.3 pg 27.0-31.0 [facility] VdjfegcOIWNVZFLST3604-60-53 11:00:0013.3[facility]annHEMATOLOGY 2014-06-13 11:00:0033.1[facility] BgujwdhCVFJLOSUYZ4958-70-71 11:00:00Negative (06/13/14 5:00 AM)[facility] HermannTHYROID ZZLLD2105-51-04 11:00:001.040[facility] HermannCARDIAC SAUHWWI5734-11-96 11:00:00<0.8[facility]annCARDIAC ENZYMES 2014-06-13 11:00:000.02[facility]annCARDIAC IOKVXNE1082-26-14 11:00:00<0.5 [facility]annCARDIAC DIOIGLP1081-61-96 11:00:0062[facility]annCHEM PANEL 2014-06-13 11:00:12708Todmbzhl HermannCHEM ECINP4046-73-34 11:00:004.1[facility]annCHEM VQSYH5286-78-34 11:00:0095[facility]annCHEM UWXTP0423-77-61 11:00:003.7[facility]annCHEM YKYIV5828-30-24 11:00:81127Ybswzwpf HermannCHEM IPLBY4948-01-93 11:00:61215Fwsdvcpa HermannCHEM JIAAT4856-05-48 11:00:008.3 [facility]annCHE[facility] GJOYY1867-05-00 11:00:0013[facility]annCHEM PANEL 2014-06-13 11:00:000.7[facility]annCHEM SJTZT3954-19-02 11:00:007.3[facility]annCHEM QTLMB1726-30-57 11:00:003.2[facility]annCHEM AYVCB8414-23-30 11:00:000.3[facility]annCHEM WJHDK1012-54-49 11:00:0032[facility]annCHEM LNJSZ8649-14-66 11:00:0019[facility]annCHEM PLATL3139-70-52 11:00:008[facility]annCHEM NLPUK4923-68-22 11:00:009.7[facility]annCHEM YUPBD5611-28-40 11:00:000.8[facility]annCHEM RXAAE9604-54-76 11:00:0010[facility]annCHEM BDZEG7021-27-40 11:00:0025[facility] CzbgvziZSUZGNEAMX3373-00-12 11:00:002.8 [facility] OawpubfRMWNILBTRM6155-75-35 11:00:005.1[facility]annHEMATOLOGY 2014-06-13 11:00:000.4[facility] GfblcfyNXJFOUUKHL8207-18-22 11:00:003.6[facility] DactqldTIYBZOIPLO7019-16-89 11:00:00Normal (06/13/14 5:00 AM)[facility] ICTZGNTLFI1716-88-74 11:00:00Normal (06/13/14 5:00 AM)[facility]annHEMATOLOGY 2014-06-13 11:00:0054.2[facility] XlyqxfpJQOZQPPTGX2608-66-00 11:00:0037.5[facility] UuhcfpuYARKWONOVX7214-47-74 11:00:000.0[facility] CfiehynBPJPNCVPPM3829-79-38 11:00:000.3[facility] RjwkmeuXTQSDBPTCW2735-20-15 11:00:002.5[facility] AOSKOQRSTC8477-38-41 11:00:000.2[facility] KshvwpqJEDEYFDPKW7664-77-10 11:00:001+ *ABN*(06/13/14 5:00 AM)[facility] AdyralaTFRYLBSRLM5824-24-15 11:00:000.38[facility] VbhzpsnQACPERUSRY1873-23-67 11:00:006.6[facility] NrkgocfSEBVUBTEDS7994-01-55 11:00:003.38[facility] NqmuzkqWSOGLRIXMX9945-31-62 11:00:0011.6[facility] ITBLAZWZQL8360-41-16 11:00:0035.0[facility] VhxxfuiCFTTWXAGXB6173-82-79 11:00:00 215[facility] QeibdpbNMWJDKFYJQ2561-06-06 11:00:008.2[facility] HermannHEMATOLOGY 2014-06-13 11:00:67565.6[facility] KwczzqnOTIJBKVDVG7005-85-91 11:00:00* Test Item Value Reference Range Interpretation Comments MCH (test code = MCH) 34.3 pg 27.0-31.0 [facility] GgaocwtJJPUTATDGS1000-17-51 11:00:0013.3[facility]annHEMATOLOGY 2014-06-13 11:00:0033.1[facility] AgnscvkJOKPKQVHVX0401-45-87 11:00:00Negative (06/13/14 5:00 AM)[facility] HermannTHYROID XHJRA5764-49-95 11:00:001.040[facility]
[2020-05-05 06:54] LABS: BASOPHILS % 0.3 % (0.0-1.0); EOSINOPHILS # (AUTO) 0.1 (0.0-0.4); EOSINOPHILS % 1.6 % (0.0-6.0); HEMATOCRIT 39.4 % (34.2-44.1); HEMOGLOBIN 13.9 g/dL (12.0-16.0); LYMPHOCYTES # (AUTO) 3.4 (1.0-3.2); LYMPHOCYTES % 44.1 % (18.0-39.1); MEAN CORPUSCULAR HGB CONC 35.3 g/dL (31-35); MEAN CORPUSCULAR VOLUME 104.8 fL (81-99); MONOCYTES # (AUTO) 0.6 (0.2-0.8); MONOCYTES % 8.2 % (4.4-11.3); NEUTROPHILS # (AUTO) 3.5 (2.1-6.9); NEUTROPHILS % 45.5 % (38.7-80.0); PLATELET COUNT 263 x10e3/uL (140-360); RED BLOOD COUNT 3.76 x10e6/uL (3.6-5.1); RED CELL DISTRIBUTION WIDTH 12.9 % (11.7-14.4)
--- NOTE | 2020-05-05 07:04 | NUR ---
WALKING ROUNDS WITH BIMAL PORTER
[2020-05-05] MEDS ORDERED: ONDANSETRON HCL 4 MG ORAL DISINTEGRATING TAB PO ONE (07:15)
[2020-05-05 07:16] LABS: ALBUMIN/GLOBULIN RATIO 0.9 (0.8-2.0); ALKALINE PHOSPHATASE 47 IU/L (40-150); ANION GAP 15.2 mmol/L (8-16); BLOOD UREA NITROGEN 12 mg/dL (7-26); BUN/CREATININE RATIO 15 (6-25); CALCIUM 9.2 mg/dL (8.4-10.2); CARBON DIOXIDE 23 mmol/L (22-29); CHLORIDE 109 mmol/L (98-107); CREATININE, SERUM 0.81 mg/dL (0.57-1.11); EST GLOMERULAR FILTRATION RATE > 60 ML/MIN (60-); GLUCOSE 103 mg/dL (74-118); POTASSIUM 3.2 mmol/L (3.5-5.1); SODIUM 144 mmol/L (136-145)
[2020-05-05 07:19] LABS: ALANINE AMINOTRANSFERASE < 6 IU/L (0-55)
--- NOTE | 2020-05-05 07:20 | Emergency Department Note ---
History of Present Illnes History of Present Illness Chief Complaint: Chest Pain History of Present Illness This is a 49 year old female who presents for blood pressure concerns. She states she has a a myriad of complaints of the last few months starting in January. She states she has had intermittent joint pain, fatigue, palpitations, chest pressure which will been coming and going since January. She has seen her doctor for this a few times in the past. The main reason she presents today is due to blood pressure control concerns. She believes that her blood pressure was too high today and noted that it was 200 systolic. She states it sometimes drops to low and she is concerned about this at home. She called her doctor who told her to come to the emergency department to get checked out. Denies chest pain at this time. Historian: Patient, Dormitory Maid/EMS Arrival Mode: [facility] Tentering Machine Off Bearer Required: No Onset (how long ago): unknown Location: Blood pressure Quality: High Radiation: Reports non-radiation Severity: moderate Onset quality: unable to specify Duration (how long): month(s) Timing of current episode: intermittent Progression: unable to specify Chronicity: chronic Context: Denies recent illness, Denies recent surgery Relieving factors: none Exacerbating factors: none Associated symptoms: Reports denies other symptoms Treatments prior to arrival: none Past Medical/Family History Physician Review I have reviewed the patient's past medical and family history. Any updates have been documented here. Past Medical History Recent Fever: No Clinical Suspicion of Infectio: No New/Unexplained Change in Ment: No Past Medical History: CAD Past Surgical History: CABG, PCI Social History Smoking Cessation: Never Smoker Counseling Performed: No Alcohol Use: None Any Illegal Drug Use: No Physically hurt or threatened: No Other Last Tetanus: UTD Review of Systems Review of Systems Constitutional: Reports as per HPI EENTM: Reports no symptoms Cardiovascular: Reports no symptoms Respiratory: Reports no symptoms Gastrointestinal: Reports no symptoms Genitourinary: Reports no symptoms Musculoskeletal: Reports no symptoms Integumentary: Reports no symptoms Neurological: Reports no symptoms Psychological: Reports no symptoms Endocrine: Reports no symptoms Hematological/Lymphatic: Reports no symptoms Physical Exam Related Data Allergies: Coded Allergies: gabapentin (Verified Allergy, Intermediate, 12/10/19) tramadol (Verified Allergy, Intermediate, 12/10/19) ibuprofen (Verified Allergy, Unknown, 12/10/19) Triage Vital Signs Vital Signs Date Time Temp Pulse Resp B/P (MAP) Pulse Ox O2 Delivery O2 Flow Rate FiO2 05/05/20 06:53 98.3 66 18 155/93 98 Room Air Vital signs reviewed: Yes Physical Exam CONSTITUTIONAL Constitutional: Present well-developed, Present well-nourished HENT HENT: Present normocephalic, Present atraumatic, Present oropharynx clear/moist, Present nose normal HENT L/R: Present left ext ear normal, Present right ext ear normal EYES Eyes: Reports PERRL, Reports conjunctivae normal NECK Neck: Present ROM normal PULMONARY Pulmonary: Present effort normal, Present breath sounds normal CARDIOVASCULAR Cardiovascular: Present regular rhythm, Present heart sounds normal, Present capillary refill normal, Present normal rate GASTROINTESTINAL Abdominal: Present soft, Present nontender, Present bowel sounds normal, Present other (Midline sternal scar) GENITOURINARY Genitourinary: Present exam deferred SKIN Skin: Present warm, Present dry MUSCULOSKELETAL Musculoskeletal: Present ROM normal NEUROLOGICAL Neurological: Present alert, Present oriented x 3, Present no gross motor or sensory deficits PSYCHOLOGICAL Psychological: Present mood/affect normal, Present judgement normal Results Laboratory Result Diagram: 05/05/20 0645 Laboratory Laboratory Tests Test 05/05/20 06:45 White Blood Count 7.67 x10e3/uL (4.8-10.8) Red Blood Count 3.76 x10e6/uL (3.6-5.1) Hemoglobin 13.9 g/dL (12.0-16.0) Hematocrit 39.4 % (34.2-44.1) Mean Corpuscular Volume 104.8 fL (81-99) Mean Corpuscular Hemoglobin 37.0 pg (28-32) Mean Corpuscular Hemoglobin Concent 35.3 g/dL (31-35) Red Cell Distribution Width 12.9 % (11.7-14.4) Platelet Count 263 x10e3/uL (140-360) Neutrophils (%) (Auto) 45.5 % (38.7-80.0) Lymphocytes (%) (Auto) 44.1 % (18.0-39.1) Monocytes (%) (Auto) 8.2 % (4.4-11.3) Eosinophils (%) (Auto) 1.6 % (0.0-6.0) Basophils (%) (Auto) 0.3 % (0.0-1.0) Neutrophils # (Auto) 3.5 (2.1-6.9) Lymphocytes # (Auto) 3.4 (1.0-3.2) Monocytes # (Auto) 0.6 (0.2-0.8) Eosinophils # (Auto) 0.1 (0.0-0.4) Basophils # (Auto) 0.0 (0.0-0.1) Absolute Immature Granulocyte (auto 0.02 x10e3/uL (0-0.1) Lab results reviewed: Yes Imaging Imaging results reviewed: Yes Diagnostics Tests Diagnostic test(s) reviewed: Yes Procedures 12 Lead ECG Interpretation ECG Interpretation : Tentering Machine Off Bearer: Interpreted by ED physician Date: May 05, 2020 Rhythm: sinus rhythm Rate: normal QRS axis: normal Conduction: 1st degree ST segments normal: Yes T waves normal: Yes Clinical Impression: abnormal ECG Assessment & Plan Medical Decision Making MDM 49 y.o F with a past medical history significant for congenital heart disease status post repair who presents to the emergency department for blood pressure check. Suture blood pressure has been high today and occasionally has been lab ile. She has a solution complaints of the last few months since January which include joint pain, fatigue, palpitations, chest pressure. This is not new today and has been ongoing for months. She has seen her doctor for this in the past. Today her main issue is blood pressure control. Exam shows 155/93 BP and VS otherwise unremarkable. Will r.o end organ dysfunction and instructed her to f/u w/ her doctors as she has a complicated medical history. Doubt emergent process at this time and patient is appropriate for DC. She will call her doctor today and arrange close follow up. Reassessment Reassessment time: 07:19 Reassessment Well appearing, NAD Assessment & Plan Final Impression: (1) Hypertension Depart Disposition: HOME, SELF-CARE Last Vital Signs Date Time Temp Pulse Resp B/P (MAP) Pulse Ox O2 Delivery O2 Flow Rate FiO2 05/05/20 06:56 66 18 155/93 100 Room Air 05/05/20 06:53 98.3 VIOLET PATRICK MD May 05, 2020 07:20
--- NOTE | 2020-05-05 08:27 | Diagnostic Imaging Report ---
Chest, 1 view, 05/05/2020. History: Palpitations. Comparison: 12/10/2019. Findings: The cardiomediastinal silhouette and pulmonary vasculature are within normal limits for a portable exam. There is no focal consolidation or pleural effusion. Linear opacities are present in the lungs bilaterally. Median sternotomy wires are intact. There are no acute osseous or soft tissue abnormalities. Impression: Bilateral linear atelectasis versus scarring. Signed by: Angel Carr on 05/05/2020 8:24 AM
[2020-05-05 09:42] VITALS: BP 150/77
== END 2020-05-05 09:47 | disposition home or self-care (01) ==
LOC: ER 06:37
DX: I10 Essential (primary) hypertension (principal); I25.10 Atherosclerotic heart disease of native coronary artery without angina pectoris; R94.31 Abnormal electrocardiogram [ECG] [EKG]; Z95.1 Presence of aortocoronary bypass graft
CPT/HCPCS: 36415; 71045; 80053; 83880; 84484; 84702; 85025; 93005; 99284; Q0162